=== PATIENT | female | born 1990 | race Caucasian/White ===

== ENCOUNTER → 2019-07-03 | Outpatient (CLI) | payer OTHER, SELFPAY ==
[2019-07-03 08:52] VITALS: BMI 36.6
[2019-07-03 10:40] LABS: Absolute Lymphocyte Count 2.15 X10^3/uL (0.83-4.51); Absolute Neutrophil Count 7.1 X10^3/uL (2.0-7.7); Basophil# 0.03 X10^3/uL; Basophil% 0.3 % (0-1); Eosinophil# 0.05 X10^3/uL; Eosinophils% 0.5 % (0-5); Hematocrit 41.6 % (37-47); Hemoglobin 14.5 g/dL (12.0-15.0); Lymphocyte # 2.15 X10^3/ul (4.0); Lymphocyte % 21.6 % (19-41); Mean Corp Hgb Conc 34.9 g/dL (32-36); Mean Corpuscular Hgb 28.8 pg (27.0-32.0); Mean Corpuscular Volume 82.5 fL (81-99); Mean Platelet Vol. 9.2 fl (6.2-12.0); Monocyte# 0.65 X10^3/uL; Monocyte% 6.5 % (0-10); NRBC Flagged by Analyzer 0 % (0-5); Neutrophil # 7.05 X10^3/uL (2.7-7.7); Neutrophil % 70.7 % (47-70); Platelet Count 259 K/mm3 (150-450); RBC Distribution Width CV 11.9 % (11.6-14.6); RBC Distribution Width SD 35.2 fl (35.1-43.9); Red Blood Count 5.04 M/mm3 (4.2-5.4)
[2019-07-03 10:52] LABS: Glucose Challenge Gest 1H 50g 132 mg/dL (70-140)
[2019-07-03 11:35] LABS: HIV - WCH Non-Reactive (Nonreactive); Hepatitis B Surface Antigen Non-Reactive (Nonreactive); Hepatitis C Antibody Non-Reactive (Nonreactive); Rubella IgG > 500.0 IU/mL
[2019-07-03 13:52] LABS: Amphetamine Urine VISTA NEGATIVE (<1000 ng/mL); Barbiturate Urine VISTA NEGATIVE (< 200 ng/mL); Benzodiazepine Urine VISTA NEGATIVE (< 200 ng/mL); Cocaine Urine VISTA NEGATIVE (< 300 ng/mL); Ecstacy Urine VISTA NEGATIVE (< 500 ng/mL); Methadone Urine VISTA NEGATIVE (< 300 ng/mL); PCP Urine VISTA NEGATIVE (< 25 ng/mL); THC Urine VISTA NEGATIVE (< 50 ng/mL); Vista UDS pH Range 6
[2019-07-03 15:05] LABS: Chlamydia Trachomatis by PCR Negative (Negative); Neisserai gonorrhoeae by PCR Negative (Negative); Probe Check PASS; Sample Adequacy Control PASS; Specimen Processing Control PASS
[2019-07-09 01:34] LABS: Rapid Plasmin Reagin (RPR) NONREACTIVE (NONREACTIVE)
== END | disposition home or self-care (01) ==
PROVIDERS: PCP Nurse Practitioner Primary Care; Referring Provider Obstetrics & Gynecology; Visit Provider Obstetrics & Gynecology
DX: Z34.90 Encounter for supervision of normal pregnancy, unspecified, unspecified trimester (principal)
CPT/HCPCS: 36415; 80307; 82950; 85025; 86592; 86703; 86762; 86803; 86850; 86900; 86901; 87086; 87088; 87340; 87491; 87591

== ENCOUNTER → 2019-10-12 | Outpatient (CLI) | payer OTHER, SELFPAY ==
[2019-10-12 10:12] VITALS: BMI 36.6
[2019-10-12 12:10] LABS: NATERA MAILED SPECIMEN
== END | disposition home or self-care (01) ==
LOC: PAVLAB 11:01
PROVIDERS: PCP Nurse Practitioner Primary Care; Referring Provider Obstetrics & Gynecology; Visit Provider Obstetrics & Gynecology
DX: O28.3 Abnormal ultrasonic finding on antenatal screening of mother (principal); Z3A.00 Weeks of gestation of pregnancy not specified
CPT/HCPCS: 36415

== ENCOUNTER → 2019-11-09 | Outpatient (CLI) | payer OTHER, SELFPAY ==
[2019-10-12 10:12] VITALS: BMI 36.6
[2019-11-09 15:17] LABS: Absolute Lymphocyte Count 1.69 X10^3/uL (0.83-4.51); Absolute Neutrophil Count 8.7 X10^3/uL (2.0-7.7); Basophil# 0.01 X10^3/uL; Basophil% 0.1 % (0-1); Eosinophil# 0.06 X10^3/uL; Eosinophils% 0.5 % (0-5); Hematocrit 36.9 % (37-47); Hemoglobin 12.8 g/dL (12.0-15.0); Lymphocyte # 1.69 X10^3/ul (4.0); Lymphocyte % 15.1 % (19-41); Mean Corp Hgb Conc 34.7 g/dL (32-36); Mean Corpuscular Volume 83.5 fL (81-99); Mean Platelet Vol. 10.3 fl (6.2-12.0); Monocyte# 0.61 X10^3/uL; Monocyte% 5.5 % (0-10); NRBC Flagged by Analyzer 0 % (0-5); Neutrophil # 8.74 X10^3/uL (2.7-7.7); Neutrophil % 78.2 % (47-70); Platelet Count 238 K/mm3 (150-450); RBC Distribution Width CV 12.6 % (11.6-14.6); RBC Distribution Width SD 37.9 fl (35.1-43.9); Red Blood Count 4.42 M/mm3 (4.2-5.4); White Blood Count 11.2 K/mm3 (4.4-11.0)
[2019-11-09 15:40] LABS: Glucose Challenge Gest 1H 50g 152 mg/dL (70-140)
== END | disposition home or self-care (01) ==
LOC: PAVLAB 14:38
PROVIDERS: PCP Nurse Practitioner Primary Care; Referring Provider Obstetrics & Gynecology; Visit Provider Obstetrics & Gynecology
DX: Z34.90 Encounter for supervision of normal pregnancy, unspecified, unspecified trimester (principal)
CPT/HCPCS: 36415; 82950; 85025

== ENCOUNTER → 2019-11-12 | Outpatient (CLI) | payer OTHER, SELFPAY ==
[2019-11-09 15:13] VITALS: BMI 39.1
[2019-11-12 07:58] LABS: Glucose GTT-Gestation. Fasting 84 mg/dL (<105)
[2019-11-12 09:22] LABS: Glucose GTT-Gestational 1 Hr 187 mg/dL (<190)
[2019-11-12 10:00] LABS: Glucose GTT-Gestational 2 Hr 162 mg/dL (<165)
[2019-11-12 11:11] LABS: Glucose GTT-Gestational 3 Hr 139 L (<145)
== END | disposition home or self-care (01) ==
LOC: LAB 07:01
PROVIDERS: PCP Nurse Practitioner Primary Care; Referring Provider Obstetrics & Gynecology; Visit Provider Obstetrics & Gynecology
DX: O99.810 Abnormal glucose complicating pregnancy (principal); Z3A.00 Weeks of gestation of pregnancy not specified
CPT/HCPCS: 36415; 82951; 82952

== ENCOUNTER 2019-12-08 15:30 | Outpatient (RCR) | payer OTHER, SELFPAY ==
[2019-11-13 08:46] VITALS: BMI 39.1
== END 2019-12-09 23:59 ==
LOC: NS 15:30
PROVIDERS: PCP Nurse Practitioner Primary Care; Visit Provider Nurse Practitioner Women's Health
DX: Z71.3 Dietary counseling and surveillance (principal); O24.419 Gestational diabetes mellitus in pregnancy, unspecified control; Z3A.00 Weeks of gestation of pregnancy not specified
CPT/HCPCS: 97802; G0108

== ENCOUNTER 2019-12-23 17:09 | Outpatient (RCR) | payer OTHER, SELFPAY ==
[2019-12-03 15:45] VITALS: BMI 38.6
[2019-12-14 15:21] VITALS: BMI 38.9
== END 2019-12-23 23:59 | disposition home or self-care (01) ==
LOC: DC 17:09
PROVIDERS: PCP Nurse Practitioner Primary Care; Visit Provider Nurse Practitioner Women's Health
DX: Z71.3 Dietary counseling and surveillance (principal); O24.419 Gestational diabetes mellitus in pregnancy, unspecified control; Z3A.00 Weeks of gestation of pregnancy not specified

== ENCOUNTER → 2020-03-02 | Outpatient (CLI) | payer OTHER, SELFPAY ==
[2020-03-02 09:24] VITALS: BMI 34.3
[2020-03-08 13:31] LABS: HPV Reflexed? NOT INDICATED
== END | disposition home or self-care (01) ==
LOC: LABSPEC 16:50
PROVIDERS: PCP Nurse Practitioner Primary Care; Referring Provider Obstetrics & Gynecology; Visit Provider Obstetrics & Gynecology
DX: Z12.4 Encounter for screening for malignant neoplasm of cervix (principal)
CPT/HCPCS: 88175; G0145

== ENCOUNTER → 2020-03-29 15:05 | Outpatient (CLI) | payer OTHER, SELFPAY ==
[2020-03-29 14:43] VITALS: BMI 36.2
[2020-03-29 16:51] LABS: AST(SGOT) 26 U/L (15-37); Alanine Aminotransfer ALT/SGPT 43 U/L (13-56); Albumin, Serum 3.7 g/dL (3.2-5.0); Alkaline Phosphatase 129 U/L (45-117); Anion Gap 5 (5-15); BUN 19 mg/dL (7-18); Calcium,Total 8.5 mg/dL (8.5-10.1); Chloride 109 mmol/L (98-107); Creatinine, Serum 0.79 mg/dL (0.55-1.02); EST Glomerular Filtration Rate 91 mL/min (>60); Est Glom Filt Rate - Afr Amer 111 mL/min (>60); Globulin 3.8 g/dL (2.2-4.2); Glucose 87 mg/dL (74-106); Potassium 3.9 mmol/L (3.5-5.1); Protein, Total 7.5 g/dL (6.4-8.2); Sodium Level 139 mmol/L (136-145)
[2020-03-29 16:58] LABS: Hemoglobin A1c 5.2 % (3.8-5.6)
== END ==
PROVIDERS: PCP Internal Medicine; Referring Provider Internal Medicine; Visit Provider Internal Medicine
DX: O24.419 Gestational diabetes mellitus in pregnancy, unspecified control (principal); O16.9 Unspecified maternal hypertension, unspecified trimester; O99.210 Obesity complicating pregnancy, unspecified trimester; E66.9 Obesity, unspecified; Z3A.00 Weeks of gestation of pregnancy not specified
CPT/HCPCS: 36415; 80053; 83036

== ENCOUNTER → 2020-04-01 07:05 | Outpatient (CLI) | payer OTHER, SELFPAY ==
[2020-03-02 09:24] VITALS: BMI 34.3
[2020-03-29 14:43] VITALS: BMI 36.2
[2020-04-01 11:06] LABS: Glucose 2 Hour Postprandial 80 mg/dL (<140)
== END ==
PROVIDERS: PCP Internal Medicine; Referring Provider Obstetrics & Gynecology; Visit Provider Obstetrics & Gynecology
DX: O24.419 Gestational diabetes mellitus in pregnancy, unspecified control (principal); Z3A.00 Weeks of gestation of pregnancy not specified
CPT/HCPCS: 36415; 82950

== ENCOUNTER → 2021-01-06 08:32 | Outpatient (CLI) | payer OTHER, SELFPAY ==
[2021-01-06 12:00] LABS: Absolute Lymphocyte Count 2.28 X10^3/uL (0.83-4.51); Absolute Neutrophil Count 4.7 X10^3/uL (2.0-7.7); Basophil# 0.02 X10^3/uL; Basophil% 0.3 % (0-1); Eosinophil# 0.11 X10^3/uL; Eosinophils% 1.4 % (0-5); Hematocrit 44.1 % (37-47); Hemoglobin 14.7 g/dL (12.0-15.0); Lymphocyte # 2.28 X10^3/ul (0.83-4.51); Lymphocyte % 29.5 % (19-41); Mean Corp Hgb Conc 33.3 g/dL (32-36); Mean Corpuscular Hgb 27.7 pg (27.0-32.0); Mean Corpuscular Volume 83.2 fL (81-99); Mean Platelet Vol. 10.2 fl (6.2-12.0); Monocyte# 0.59 X10^3/uL; Monocyte% 7.6 % (0-10); NRBC Flagged by Analyzer 0 % (0-5); Neutrophil # 4.72 X10^3/uL (2.7-7.7); Neutrophil % 60.9 % (47-70); Platelet Count 289 K/mm3 (150-450); RBC Distribution Width CV 12.5 % (11.6-14.6); RBC Distribution Width SD 37.7 fl (35.1-43.9); White Blood Count 7.7 K/mm3 (4.4-11.0)
[2021-01-06 12:16] LABS: ALB/GLOB Ratio 0.9 RATIO (0.9-2.4); AST(SGOT) 16 U/L (15-37); Alanine Aminotransfer ALT/SGPT 28 U/L (13-56); Albumin, Serum 3.7 g/dL (3.2-5.0); Alkaline Phosphatase 85 U/L (45-117); Anion Gap 11 (5-15); BUN 12 mg/dL (7-18); Calcium,Total 8.8 mg/dL (8.5-10.1); Chloride 106 mmol/L (98-107); Cholesterol 189 mg/dL (200); Creatinine, Serum 0.86 mg/dL (0.55-1.02); EST Glomerular Filtration Rate 83 mL/min (>60); Est Glom Filt Rate - Afr Amer 101 mL/min (>60); Globulin 4.2 g/dL (2.2-4.2); Glucose 93 mg/dL (74-106); High Density Lipoprotein 43 mg/dL; Potassium 3.9 mmol/L (3.5-5.1); Protein, Total 7.9 g/dL (6.4-8.2); Sodium Level 139 mmol/L (136-145); Triglycerides 169 mg/dL; Very Low Density Lipoprotein 34 mg/dL (5-40)
== END ==
PROVIDERS: PCP Internal Medicine; Referring Provider Internal Medicine; Visit Provider Internal Medicine
DX: I10 Essential (primary) hypertension (principal)
CPT/HCPCS: 36415; 80053; 80061; 85025

== ENCOUNTER → 2022-11-20 | Outpatient (CLI) | payer OTHER, SELFPAY ==
[2022-11-20 18:29] LABS: hCG Titer Quant., Serum 151 mIU/mL (1-3)
== END | disposition home or self-care (01) ==
LOC: LAB 16:38
PROVIDERS: PCP Internal Medicine; Referring Provider Registered Nurse; Visit Provider Registered Nurse
DX: O20.0 Threatened abortion (principal); Z3A.00 Weeks of gestation of pregnancy not specified
CPT/HCPCS: 36415; 84702

== ENCOUNTER → 2022-11-22 | Outpatient (CLI) | payer OTHER, SELFPAY ==
[2022-11-22 10:15] LABS: hCG Titer Quant., Serum 264 mIU/mL (1-3)
== END | disposition home or self-care (01) ==
PROVIDERS: PCP Internal Medicine; Referring Provider Registered Nurse; Visit Provider Registered Nurse
DX: O20.0 Threatened abortion (principal); Z3A.00 Weeks of gestation of pregnancy not specified
CPT/HCPCS: 36415; 84702

== ENCOUNTER → 2022-11-30 | Outpatient (CLI) | payer OTHER, SELFPAY ==
--- NOTE | 2022-11-30 15:57 | US_ITS ---
INDICATION: viability EXAMINATION: US OB Transvaginal TECHNIQUE: Transvaginal (for optimal evaluation of the adnexa) pelvic ultrasound was performed. Grayscale, spectral waveform, and color flow Doppler evaluation of the adnexa. COMPARISON: None. FINDINGS: Uterus measures 9.5 x 4.4 x 5 cm. scar along lower uterine segment. Small intrauterine gestational sac present but no pole or yolk sac detected at this time. Mean gestational sac diameter of 8 mm yields estimated gestational age of 5 weeks 4 days, AG[place] 07/29/2023. Clinical age of 7 weeks 2 days with LMP of 10/10/2022. Gestational sac shape subjectively within normal limits. Closed cervix. No adnexal mass or significant free pelvic fluid detected. Right ovary measures 3.7 x 3.4 x 3.6 cm and left ovary 2.3 x 1.6 x 1.9 cm. Adnexal color Doppler flow demonstrated but spectral waveform analysis of ovaries was not performed. US/Transvaginal w/Preg US IMPRESSION: Single early intrauterine with EGA of 5 weeks 4 days by ultrasound. pole not yet visualized. Classified as of uncertain viability. Recommend repeat ultrasound in 14 days to reassess. Electronically Signed: Andrey Jimenez MD at 3:22 EDT ,
== END | disposition home or self-care (01) ==
LOC: US 15:57
PROVIDERS: PCP Internal Medicine; Referring Provider Obstetrics & Gynecology; Visit Provider Obstetrics & Gynecology
DX: Z34.90 Encounter for supervision of normal pregnancy, unspecified, unspecified trimester (principal); Z3A.00 Weeks of gestation of pregnancy not specified
CPT/HCPCS: 76817

== ENCOUNTER → 2022-12-13 | Outpatient (CLI) | payer OTHER, SELFPAY | END | disposition home or self-care (01) | LOC: LABSPEC 14:22 | PROVIDERS: PCP Internal Medicine; Referring Provider Obstetrics & Gynecology; Visit Provider Obstetrics & Gynecology | DX: O09.91 Supervision of high risk pregnancy, unspecified, first trimester (principal); R35.0 Frequency of micturition; Z3A.00 Weeks of gestation of pregnancy not specified; O99.891 Other specified diseases and conditions complicating pregnancy | CPT/HCPCS: 87086 ==

== ENCOUNTER → 2022-12-13 | Outpatient (CLI) | payer OTHER, SELFPAY ==
--- NOTE | 2022-12-13 16:22 | US_ITS ---
STUDY: FIRST TRIMESTER OBSTETRICAL ULTRASOUND REASON FOR EXAM: Female, 32 years old Viability LMP: Unknown. TECHNIQUE: Transabdominal and Transvaginal TECHNICAL QUALITY: Adequate. PRIOR ULTRASOUND: November 30, 2022 FINDINGS: There is visualization of a single gestational sac in a normal intrauterine position. The mean sac diameter (MSD) measures 2.0 cm, indicating an estimated gestational age (EGA) of 6 weeks, 6 days. The gestational sac shape is within normal limits. There is a visualized yolk sac. The yolk sac measures 0.4 cm. The placenta is non-visualized. There is visualization of a live embryo. The crown-rump length (CRL) measures 1.0 cm, indicating an estimated gestational age (EGA) of 7 weeks, 1 days. There is demonstrated cardiac activity with a heart rate of 166 bpm. The estimated gestation age (EGA) by US is 7 weeks, 0 days. The estimated date of delivery ([facility]) by US is August 01, 2023. The uterus measures 10.1 x 6.1 x 5.1 cm. There is no demonstrated uterine fibroid. The cervix is closed. The right ovary measures 4.1 x 3.6 x 2.4 cm. There is 1.9 cm echogenic cyst. The left ovary measures 3.5 x 3.1 x 2.6 cm. There is no left ovarian cyst. There is no visualized left adnexal mass or complex lesion. There is no fluid in the cul de sac. US/Transvaginal w/Preg US IMPRESSION: Single intrauterine gestation 7 weeks 0 days with estimated due date August 01, 2023. Complex right adnexal cyst. Electronically Signed: Frankie Finley MD at 20:28 EDT ,
== END | disposition home or self-care (01) ==
LOC: US 16:21
PROVIDERS: PCP Internal Medicine; Referring Provider Obstetrics & Gynecology; Visit Provider Obstetrics & Gynecology
DX: Z34.90 Encounter for supervision of normal pregnancy, unspecified, unspecified trimester (principal); Z3A.00 Weeks of gestation of pregnancy not specified
CPT/HCPCS: 76817

== ENCOUNTER → 2022-12-14 | Outpatient (CLI) | payer OTHER, SELFPAY ==
[2022-12-18 03:07] LABS: Chlamydia By Nucleic Acid AMP Negative (Negative); Gonococcus By Nucleic Acid AMP Negative (Negative)
== END | disposition home or self-care (01) ==
LOC: LABSPEC 16:51
PROVIDERS: Referring Provider Registered Nurse; Visit Provider Registered Nurse
DX: Z34.90 Encounter for supervision of normal pregnancy, unspecified, unspecified trimester (principal); Z3A.00 Weeks of gestation of pregnancy not specified
CPT/HCPCS: 87086; 87491; 87591

== ENCOUNTER 2023-01-11 14:52 | Outpatient (CLI) | payer OTHER, SELFPAY ==
[2023-01-11 15:40] LABS: Absolute Lymphocyte Count 2.14 X10^3/uL (0.83-4.51); Absolute Neutrophil Count 7.9 X10^3/uL (2.0-7.7); Basophil# 0.02 X10^3/uL; Basophil% 0.2 % (0-1); Eosinophil# 0.05 X10^3/uL; Eosinophils% 0.5 % (0-5); Hematocrit 40.4 % (37-47); Hemoglobin 13.7 g/dL (12.0-15.0); Lymphocyte # 2.14 X10^3/ul (0.83-4.51); Lymphocyte % 19.8 % (19-41); Mean Corp Hgb Conc 33.9 g/dL (32-36); Mean Corpuscular Volume 82.6 fL (81-99); Mean Platelet Vol. 9.6 fl (6.2-12.0); Monocyte# 0.64 X10^3/uL; Monocyte% 5.9 % (0-10); NRBC Flagged by Analyzer 0 % (0-5); Neutrophil # 7.93 X10^3/uL (2.7-7.7); Neutrophil % 73.2 % (47-70); Platelet Count 235 K/mm3 (150-450); RBC Distribution Width CV 12.5 % (11.6-14.6); RBC Distribution Width SD 37.6 fl (35.1-43.9); Red Blood Count 4.89 M/mm3 (4.2-5.4); White Blood Count 10.8 K/mm3 (4.4-11.0)
[2023-01-11 15:59] LABS: NATERA MAILED SPECIMEN
[2023-01-11 16:03] LABS: Hemoglobin A1c 4.9 % (3.8-5.6)
[2023-01-11 16:11] LABS: ALB/GLOB Ratio 0.8 RATIO (0.9-2.4); AST(SGOT) 13 U/L (15-37); Alanine Aminotransfer ALT/SGPT 18 U/L (13-56); Albumin, Serum 3.3 g/dL (3.2-5.0); Alkaline Phosphatase 83 U/L (45-117); Anion Gap 8 (5-15); BUN 9 mg/dL (7-18); BUN/Creat Ratio 13.6 RATIO (10-20); Calcium,Total 8.7 mg/dL (8.5-10.1); Chloride 108 mmol/L (98-107); Creatinine, Serum 0.66 mg/dL (0.55-1.02); EST Glomerular Filtration Rate 110 mL/min (>60); Est Glom Filt Rate - Afr Amer 134 mL/min (>60); Glucose 120 mg/dL (74-106); Potassium 3.4 mmol/L (3.5-5.1); Protein, Total 7.3 g/dL (6.4-8.2); Sodium Level 138 mmol/L (136-145)
[2023-01-11 17:25] LABS: HIV - WCH Non-Reactive (Nonreactive); Hepatitis B Surface Antigen Non-Reactive (Nonreactive); Hepatitis C Antibody Non-Reactive (Nonreactive); Rubella IgG Reactive (Nonreactive); Syphilis Antibodies Non-reactive
== END 2023-01-11 23:59 | disposition home or self-care (01) ==
LOC: LAB 14:54
PROVIDERS: Visit Provider Registered Nurse
DX: O99.210 Obesity complicating pregnancy, unspecified trimester (principal); Z86.32 Personal history of gestational diabetes; O09.299 Supervision of pregnancy with other poor reproductive or obstetric history, unspecified trimester; I10 Essential (primary) hypertension
CPT/HCPCS: 36415; 80053; 83036; 85025; 86703; 86762; 86780; 86803; 86850; 86900; 86901; 87340

== ENCOUNTER → 2023-05-03 | Outpatient (CLI) | payer OTHER, SELFPAY ==
[2023-05-03 14:45] LABS: Absolute Neutrophil Count 7.4 X10^3/uL (2.0-7.7); Basophil# 0.02 X10^3/uL; Basophil% 0.2 % (0-1); Eosinophil# 0.15 X10^3/uL; Eosinophils% 1.5 % (0-5); Hematocrit 36.6 % (37-47); Hemoglobin 12.2 g/dL (12.0-15.0); Lymphocyte % 16.2 % (19-41); Mean Corp Hgb Conc 33.3 g/dL (32-36); Mean Platelet Vol. 9.9 fl (6.2-12.0); Monocyte# 0.65 X10^3/uL; Monocyte% 6.6 % (0-10); NRBC Flagged by Analyzer 0 % (0-5); Neutrophil # 7.41 X10^3/uL (2.7-7.7); Neutrophil % 75.2 % (47-70); Platelet Count 247 K/mm3 (150-450); RBC Distribution Width SD 37.5 fl (35.1-43.9); Red Blood Count 4.52 M/mm3 (4.2-5.4); White Blood Count 9.9 K/mm3 (4.4-11.0)
[2023-05-03 14:51] LABS: Protein:Creat Ratio 211 mg/g CRE (0-200)
[2023-05-03 15:12] LABS: ALB/GLOB Ratio 0.7 RATIO (0.9-2.4); AST(SGOT) 13 U/L (15-37); Alanine Aminotransfer ALT/SGPT 14 U/L (13-56); Albumin, Serum 2.9 g/dL (3.2-5.0); Alkaline Phosphatase 101 U/L (45-117); Anion Gap 10 (5-15); BUN 8 mg/dL (7-18); BUN/Creat Ratio 11.2 RATIO (10-20); Calcium,Total 9.4 mg/dL (8.5-10.1); Chloride 107 mmol/L (98-107); Creatinine, Serum 0.71 mg/dL (0.55-1.02); EST Glomerular Filtration Rate 101 mL/min (>60); Est Glom Filt Rate - Afr Amer 123 mL/min (>60); Globulin 4.4 g/dL (2.2-4.2); Glucose 128 mg/dL (74-106); Potassium 3.7 mmol/L (3.5-5.1); Protein, Total 7.3 g/dL (6.4-8.2); Sodium Level 138 mmol/L (136-145)
[2023-05-03 16:06] LABS: HIV - WCH Non-Reactive (Nonreactive); Syphilis Antibodies Non-reactive
--- OUTSIDE RECORDS SUMMARY | 2023-05-03 16:47 | XMS RPT_ITS | CCD ---
Author Name Unknown Address [id number] [place] [address] Organization [facility] Care Team Providers Care Brake Repair Supervisor Name Role Phone Lisha Hilaria Kennedy Unavailable Amador Addison Attending Unavailable LishaHilaria Primary Care Provider Unavailable Primary Care Provider Unavailabl e Lisha COMMISSIONER OF CONCILIATIONHilaria Primary Care Provid er Lisha [employer] CON[employer]IATION, Hilaria Kennedy Primary Care Provid er LISHA, HILARIA KENNEDY Primary Care Unavail able HENRRY BARAHONA Attending Unavailable Lisha COMM[employer] CON[employer]IATION, Hilaria Kennedy Primary Care Provid er Lisha Hilaria CORNELL Unavailable LISHA, HILARIA KENNEDY Admitting Unavail able LISHA, HILARIA KENNEDY Primary Care Unavail able LISHA, HILARIA KENNEDY Primary Care Unavail able LISHA, HILARIA KENNEDY Admitting Unavail able LISHA, HILARIA KENNEDY Primary Care Unavail able ELEUTERIO CASTANO Admitting Unavailable LISHA, HILARIA KENNEDY Primary Care Unavail able Lisha [employer], Hilaria Kennedy Primary Care Provid er Lisha Hilaria CORNELL Unavailable LISHA, HILARIA KENNEDY Attending Unavail able LISHA, HILARIA KENNEDY Primary Care Unavail able LISHA, HILARIA KENNEDY Attending Unavail able LISHA, HILARIA KENNEDY Primary Care Unavail able LISHA, HILARIA KENNEDY Primary Care Unavail able ALEIDA ACEVES Attending Unavailable LISHA, HILARIA KENNEDY Primary Care Unavail able MOROCCO JR., TIN Attending Unavailable LISHA, HILARIA KENNEDY Referring Unavail able LISHA, HILARIA KENNEDY Admitting Unavail able LISHA, HILARIA KENNEDY Primary Care Unavail able MOROCCO JR., TIN Attending Unavailable LISHA, HILARIA KENNEDY Attending Unavail able LISHA, HILARIA KENNEYD Primary Care Unavail able DOC, [facility] Primary Care Unavailable VANDEVJOEY MAHAJAN Referring Unavailab le CERDAYUDITH REESE Attending Unavailable DOC, [facility] Unavailable VANDEVJOEY MAHAJAN Referring Unavailab le SEVEN RODAS Attending Unavailable VANDEVELDE, JOEY Valentine Attending Unavailab le VANDEVELDEJOEY Referring Unavailab le DOC, [facility] Primary [facility] Unavailable MOTTERFREDERICK Attending Unavailable Allergies Allergy Classification Reported Allergen(s) Allergy Type Date of Onset Reaction(s) Facility (20 sources) acetaminophen / HYDROcodone; Translations: [HYDROCODONE-ACET AMINOPHEN] Propensity to adverse reactions to drug 6 Other (See Comments) [facility] (20 sources) diazePAM; Translations: [DIAZEPAM] Propensity to adverse reactions to drug 7 Anxiety [facility] (20 sources) erythromycin; Translations: [ERYTHROMYCIN BASE] Propensity to adverse reactions to drug 5 Other (See Comments), Nausea And Vomiting [facility] (19 sources) penicillin; Translations: [PENICILLIN] Propensity to adverse reactions to drug 5 Rash [facility] (1 source) Acetaminophen Drug Allergy [facility] (1 source) diazePAM Drug Allergy [facility] (1 source) Erythromycin Drug Allergy [facility] (2 sources) HYDROcodone; Translations: [HYDROCODONE] Drug Allergy 0 [facility] (2 sources) Penicillins; Translations: [PENICILLINS] Drug allergy (disorder) 5 [facility] (19 sources) cefdinir; Translations: [CEFDINIR] Drug Allergy 9 Anaphylaxis [facility] (1 source) HYDROcodone Drug Allergy 0 [place], [place] (1 source) Penicillins Propensity to adverse reactions to drug 0 Rash [place], [place] (1 source) Erythromycin; Translations: [ERYTHROMYCIN] Drug Allergy 5 [facility] Rep[facility] Medications Current Medications Medication Drug Class(es) Dates Sig (Normalized) Sig (Original) azithromycin 250 mg oral tablet (1 source) Macrolide Antimicrobial Start: 01-13-2019 End: 01-18-2019 azithromycin (Zithromax) 250 MG tablet Indications: Sinusitis, unspecified chronicity, unspecified location Take 2 tablets (500 mg) on Day 1, followed by 1 tablet (250 mg) once daily on Days 2 through 5. . 6 tablet 0 01/13/2019 01/18/2019 Active cetirizine hydrochloride 10 mg oral tablet (19 sources) Histamine-1 Receptor Antagonist Start: 01-19-2020 cetirizine (ZYRTEC) tablet 10 mg Completed/Discontinued Medications Medication Drug Class(es) Dates Sig (Normalized) Sig (Original) acetaminophen 500 mg oral tablet (1 source) Start: 01-14-2020 End: 01-14-2020 take 1000 mg by mouth once, then take 4000 mg by mouth every twenty-four hours 1,000 mg, Oral, ONCE, [facility] 01/14/20 at 1815, For 1 dose Maximum dose of acetaminophen is 4000 mg from all sources in 24 hours. Problems Active Problems Problem Classification Problem Date Documented Da te Episodic/Chronic Essential hypertension (20 sources) Hypertensive disorder; Translations: [Essential (primary) hypertension] Onset: 06-27-2021 Chronic Inflammatory diseases of female pelvic organs (1 source) Acute vaginitis Episodic Menstrual disorders (3 sources) Amenorrhea; Translations: [Amenorrhea, unspecified] Onset: 06-28-2021 Chronic Other nervous system disorders (1 source) Skin tenderness; Translations: [Other disturbances of skin sensation] 07-11-2022 Episodic Other nervous system disorders (2 sources) Other disturbances of skin sensation; Translations: [Other disturbances of skin sensation] Onset: 07-11-2022 Episodic Other nutritional; endocrine; and metabolic disorders (13 sources) Insulin resistance; Translations: [Metabolic syndrome] Onset: 06-27-2021 06-27-2021 Chronic Other skin disorders (1 source) Cyst of scalp; Translations: [Follicular cyst of the skin and subcutaneous tissue, unspecified] Episodic Other skin disorders (2 sources) Pilar cyst of scalp; Translations: [Pilar cyst] Episodic Other skin disorders (1 source) Epidermoid cyst; Translations: [Epidermal cyst] Episodic Other skin disorders (1 source) Scar; Translations: [Scar conditions and fibrosis of skin] 07-24-2022 Episodic Other skin disorders (2 sources) Scar conditions and fibrosis of skin; Translations: [Scar conditions and fibrosis of skin] Onset: 07-24-2022 Episodic Other skin disorders (2 sources) Pilar cyst; Translations: [Pilar cyst] Onset: 07-11-2022 Episodic Other skin disorders (2 sources) Epidermal cyst; Translations: [Epidermal cyst] Onset: 05-28-2022 Episodic Other upper respiratory infections (1 source) Sinusitis; Translations: [Sinusitis, unspecified chronicity, unspecified location] Episodic Residual codes; unclassified (2 sources) H/O: section; Translations: [S/P primary low transverse ] Onset: 01-17-2020 01-17-2020 Episodic Superficial injury; contusion (2 sources) Abrasion of left cornea; Translations: [Injury of conjunctiva and corneal abrasion without foreign body, left eye, initial encounter] Episodic Past or Other Problems Problem Classification Problem Date Documented Da te Episodic/Chronic Contraceptive and procreative management (16 sources) Oral contraception; Translations: [Encounter for surveillance of contraceptive pills] Onset: 02-24-2018 06-27-2021 Episodic Diabetes or abnormal glucose tolerance complicating ; childbirth; or the puerperium (13 sources) Gestational diabetes mellitus complicating ; Translations: [Gestational diabetes mellitus in , unspecified control] Onset: 01-14-2020 Resolved: 08-25-2021 06-27-2021 Episodic Genitourinary symptoms and ill-defined conditions (9 sources) Increased frequency of urination; Translations: [Frequency of micturition] Onset: 11-16-2021 Episodic Hypertension complicating ; childbirth and the puerperium (15 sources) Pre-eclampsia; Translations: [Severe pre-eclampsia] Onset: 01-14-2020 Resolved: 08-25-2021 01-14-2020 Episodic Malposition; malpresentation (13 sources) Breech presentation with problem; Translations: [Maternal care for breech presentation, not applicable or unspecified] Onset: 01-14-2020 Resolved: 08-25-2021 06-27-2021 Episodic Other complications of (13 sources) ultrasound scan abnormal; Translations: [Abnormal ultrasonic finding on screening of mother] Onset: 06-27-2021 06-27-2021 Episodic Other complications of (13 sources) High risk ; Translations: [Supervision of high risk , unspecified, unspecified trimester] Onset: 06-27-2021 Resolved: 08-25-2021 06-27-2021 Episodic Other female genital disorders (14 sources) H/O gynecological disorder; Translations: [Personal history of other diseases of the female genital tract] Onset: 02-24-2018 01-20-2020 Episodic Other skin disorders (2 sources) Follicular cyst of the skin and subcutaneous tissue, unspecified; Translations: [Follicular cyst of the skin and subcutaneous tissue, unspecified] Onset: 04-16-2022 Episodic Results Test Name Value Interpretation Reference Range Facil ity Vital Signs Date Time Vital Sign Value Performing Clinician Facility 04-16-2022 10:04-0500 Body height 161.3 cm Hilaria Husain [employer] Work Phone: [facility] 04-16-2022 10:04-0500 Body mass index (BMI) [Ratio] 40.8 kg/m2 Hilaria Lisha [employer] Work Phone: [facility] 04-16-2022 10:04-0500 Body weight 106.14 kg Hilaria Lisha [employer] Work Phone: [facility] 04-16-2022 10:04-0500 Diastolic blood pressure 76 mm[Hg] Hilaria Lisha [employer] Work Phone: [facility] 04-16-2022 10:04-0500 Heart rate 83 /min Hilaria Lisha [employer] Work Phone: [facility] 04-16-2022 10:04-0500 SaO2% (BldA) [Mass fraction] 97 % Hilaria Lisha [employer] Work Phone: [facility] 04-16-2022 10:04-0500 Systolic blood pressure 117 mm[Hg] Hilaria Lisha [employer] Work Phone: [facility] 11-16-2021 09:14-0400 Body height 161.3 cm Hilaria Lisha [employer] Work Phone: [facility] 11-16-2021 09:14-0400 Body mass index (BMI) [Ratio] 41.85 kg/m2 Hilaria Lisha [employer] Work Phone: [facility] 11-16-2021 09:14-0400 Body weight 108.86 kg Hilaria Lisha [employer] Work Phone: [facility] 11-16-2021 09:14-0400 Diastolic blood pressure 84 mm[Hg] Hilaria Lisha [employer] Work Phone: [facility] 11-16-2021 09:14-0400 Heart rate 88 /min Hilaria Lisha [employer] Work Phone: [facility] 11-16-2021 09:14-0400 SaO2% (BldA) [Mass fraction] 98 % Hilaria Lisha [employer] Work Phone: [facility] 11-16-2021 09:14-0400 Systolic blood pressure 127 mm[Hg] Hilaria Lisha [employer] Work Phone: [facility] 09-10-2021 13:27-0400 Body mass index (BMI) [Ratio] 43.07 kg/m2 Paridhi Ja [employer] Work Phone: [facility] 09-10-2021 13:27-0400 Body temperature 98.49 [degF] Paridhi Ja [employer] Work Phone: [facility] 09-10-2021 13:27-0400 Body weight 112.04 kg Paridhi Ja [employer] Work Phone: [facility] 09-10-2021 13:27-0400 Diastolic blood pressure 83 mm[Hg] Paridhi Ja [employer] Work Phone: [facility] 09-10-2021 13:27-0400 Heart rate 94 /min Paridhi Ja [employer] Work Phone: [facility] 09-10-2021 13:27-0400 Respiratory rate 16 /min Paridhi Ja [employer] Work Phone: [facility] 09-10-2021 13:27-0400 SaO2% (BldA) [Mass fraction] 97 % Paridhi Ja [employer] Work Phone: [facility] 09-10-2021 13:27-0400 Systolic blood pressure 132 mm[Hg] Paridhi Ja [employer] Work Phone: [facility] 08-25-2021 09:30-0400 Body height 161.3 cm Hilaria Lisha [employer]IATION Work Phone: [facility] 08-25-2021 09:30-0400 Body mass index (BMI) [Ratio] 41.67 kg/m2 Hilaria Lisha [employer] Work Phone: [facility] 08-25-2021 09:30-0400 Body weight 108.41 kg Hilaria Lisha [employer] Work Phone: [facility] 08-25-2021 09:30-0400 Diastolic blood pressure 72 mm[Hg] Hilaria Lisha [employer] Work Phone: [facility] 08-25-2021 09:30-0400 Heart rate 85 /min Hilaria Lisha [employer] Work Phone: [facility] 08-25-2021 09:30-0400 SaO2% (BldA) [Mass fraction] 97 % Hilaria Lisha [employer] Work Phone: [facility] 08-25-2021 09:30-0400 Systolic blood pressure 106 mm[Hg] Hilaria Lisha [employer]IATION Work Phone: [facility] 06-27-2021 15:36-0400 Body height 161.3 cm Hilaria Lisha [employer] Work Phone: [facility] 06-27-2021 15:36-0400 Body mass index (BMI) [Ratio] 42.2 kg/m2 Hilaria Lisha [employer] Work Phone: [facility] 06-27-2021 15:36-0400 Body weight 109.77 kg Hilaria Lisha [employer] Work Phone: [facility] 06-27-2021 15:36-0400 Diastolic blood pressure 88 mm[Hg] Hilaria Lisha [employer] Work Phone: [facility] 06-27-2021 15:36-0400 Heart rate 88 /min Hilaria Lisha [employer] Work Phone: [facility] 06-27-2021 15:36-0400 SaO2% (BldA) [Mass fraction] 96 % Hilaria Lisha [employer]IATION Work Phone: [facility] 06-27-2021 15:36-0400 Systolic blood pressure 134 mm[Hg] Hilaria Lisha [employer] Work Phone: [facility] 01-20-2020 11:39-0500 BP Diastolic 99 mm[Hg] [facility] [place] 01-20-2020 11:39-0500 BP Systolic 146 mm[Hg] [facility] [place] 01-20-2020 11:39-0500 Pulse (Heart Rate) 89 /min [facility] 01-20-2020 08:32-0500 Body Temperature 97 [degF] [facility] 01-20-2020 08:32-0500 Pulse Oximetry 100 % [facility] [place] 01-20-2020 08:32-0500 Respiratory Rate 18 /min [facility] 01-17-2020 03:20-0500 BMI (Body Mass Index) 40.92 kg/m2 [facility] 01-17-2020 03:20-0500 Body weight 108.14 kg [facility] [place] 01-14-2020 18:58-0500 Height 162.6 cm [place], [place] 01-13-2019 09:16-0500 BMI (Body Mass Index) 38.19 kg/m2 Sabino Gallardo [facility] 01-13-2019 09:16-0500 Body Temperature 98.4 [degF] Sabino Gallardo [facility] 01-13-2019 09:16-0500 [facility] 99[facility]34 [facility] 09:16-0500 BP Diastolic 88 mm[Hg] [facility]-13[facility]2019 09:16-0500 BP Systolic 127 mm[Hg] [facility] 01-13-2019 09:16-0500 Height 161.3 cm Sabino [facility] 01-13-2019 09:16-0500 Pulse (Heart Rate) 88 /min [facility]-13-2019 09:16-0500 Pulse Oximetry 98 % [facility] 01-13-2019 09:16-0500 Respiratory Rate 18 /min Sabino [facility] 09-17-2017 18:28-0400 BMI (Body Mass Index) 36.25 kg/m2 [facility] system 09-17-2017 18:28-0400 Body Temperature 98.2 [degF] [facility] system 09-17-2017 18:28-0400 BP Diastolic 85 mm[Hg] [facility] system 09-17-2017 18:28-0400 BP Systolic 128 mm[Hg] [facility] system 09-17-2017 18:28-0400 Height 162.6 cm [facility] system 09-17-2017 18:28-0400 Pulse (Heart Rate) 69 /min [facility] system 09-17-2017 18:28-0400 Pulse Oximetry 97 % [facility] system 09-17-2017 18:28-0400 Respiratory Rate 16 /min [facility] system 09-17-2017 18:28-0400 Weight 95.8 kg Health system 05-17-2017 10:05-0500 BMI (Body Mass Index) 38.62 kg/m2 Hilaria Lisha [facility] 05-17-2017 10:05-0500 Body Temperature 98.1 [degF] Hilaria Lisha [facility] 05-17-2017 10:05-0500 BP Diastolic 80 mm[Hg] [facility] 05-17-2017 10:05-0500 BP Systolic 131 mm[Hg] [facility] 05-17-2017 10:05-0500 Height 162.6 cm [facility] 05-17-2017 10:05-0500 Pulse (Heart Rate) 98 /min [facility] 05-17-2017 10:05-0500 Pulse Oximetry 98 % [facility] 05-17-2017 10:05-0500 Respiratory Rate 16 /min [facility] 05-17-2017 10:05-0500 Weight 102.06 kg [facility] Encounters Encounter Date Encounter Type Care Provider Facility Start: 04-03-2023 End: 04-03-2023 ambulatory JOEY GEE [facility] Start: 03-07-2023 End: 03-07-2023 ambulatory MISC DOC [facility] Start: 07-24-2022 End: 07-24-2022 ambulatory HILARIA MARCIA [facility] Start: 07-24-2022 End: 07-24-2022 Clinical Support Aleida Aceves [facility] Procedures Date Procedure Procedure Detail Performing Clinician Start: 03-19-2022 Microscopic observat ion [Identifier] in Cervix by Cyto stain Hilaria Husain [facility] Work Phone: Start: 08-25-2021 Adult depression scr eening assessment Hilaria Husain [employer] Work Phone: Start: 03-02-2020 Microscopic observat ion [Identifier] in Cervix by Cyto stain Hilaria Husain [employer] Work Phone: Start: 01-19-2020 Gluc bld gluc mntr d ev cleared fda spec home use Seven Rodas Work Phone: Start: 01-19-2020 Gluc bld gluc mntr d ev cleared fda spec home use Seven Rodas Work Phone: Start: 01-18-2020 Gluc bld gluc mntr d ev cleared fda spec home use Seven A Rodas Work Phone: Start: 01-18-2020 Gluc bld gluc mntr d ev cleared fda spec home use Seven A Rodas Work Phone: Start: 01-18-2020 Gluc bld gluc mntr d ev cleared fda spec home use Seven A Rodas Work Phone: Start: 01-18-2020 Blood count hemoglobin Joce Adler Work Phone: Start: 01-17-2020 Blood count complete automated Joce Valentine [employer] Work Phone: Start: 01-17-2020 Comprehensive metabo lic panel Joce Valentine [employer] Work Phone: Start: 01-17-2020 Blood typing serologic abo Seven Kirkpatrick [employer] Work Phone: Start: 01-16-2020 Gluc bld gluc mntr d ev cleared fda spec home use Seven A Rodas Work Phone: Start: 01-16-2020 Gluc bld gluc mntr d ev cleared fda spec home use Seven A [employer] Work Phone: Start: 01-16-2020 Gluc bld gluc mntr d ev cleared fda spec home use Seven Kirkpatrick [employer] Work Phone: Start: 01-16-2020 Gluc bld gluc mntr d ev cleared fda spec home use Seven A Rodas Work Phone: Start: 01-15-2020 Gluc bld gluc mntr d ev cleared fda spec home use Seven A [employer] Work Phone: Start: 01-15-2020 Gluc bld gluc mntr d ev cleared fda spec home use Seven A Rodas Work Phone: Start: 01-15-2020 US LIMITED Al mylene Palmer Work Phone: Start: 01-15-2020 Gluc bld gluc mntr d ev cleared fda spec home use Seven A [employer] Work Phone: Start: 01-15-2020 Blood count complete auto&auto difrntl wbc Karlos Varela Work Phone: Start: 01-15-2020 Comprehensive metabo lic panel Karlos Varela Work Phone: Start: 01-14-2020 Gluc bld gluc mntr d ev cleared fda spec home use Seven Rodas Work Phone: Start: 01-14-2020 Culture bacterial quanttative colony count urine Jayda Amezcua Work Phone: Start: 01-14-2020 Susceptiblty stdy antimicrbial micro/agar dilutj Jayda Amezcua Work Phone: Start: 01-14-2020 Blood typing serologic abo Karlos Varela Work Phone: Start: 01-14-2020 Blood count complete automated Ally C Ptasinski Work Phone: Start: 01-14-2020 Comprehensive metabo lic panel Ally C Ptasinski Work Phone: Start: 01-14-2020 Creatinine other source Ally C Ptasinski Work Phone: Start: 01-14-2020 PROTEIN, URINE Ally C Ptasinski Work Phone: Start: 02-21-2016 Microscopic observat ion [Identifier] in Cervix by Cyto stain Sabino Gallardo Plan of Treatment Date Care Activity Detail Author Start: 11-08-2029 Tetanus vaccination Tetanus: Every 1 0yrs [facility] Start: 05-16-2026 Tetanus vaccination TETANUS EVERY 10 YR [facility] Start: 03-19-2025 Screening for malign ant neoplasm of cervix Pap Smear [facility] Start: 04-16-2023 History and physical examination, annual for health maintenance Wellness Visit [facility] Start: 03-02-2023 Screening for malign ant neoplasm of cervix Pap Smear [facility] Start: 08-25-2022 COVID-19 Vaccine (3 - Booster for Pfizer series) COVID-19 Vaccine (3 - Booster for Pfizer series) [facility] Immunizations Immunization Date Immunization Notes Care Provider Veena ellison 04-16-2022 Seasonal, quadrivale nt, recombinant, injectable influenza vaccine, preservative free Hilaria Lisha [employer] Work Phone: [facility] 04-16-2022 flu vac qv 2021,19yr up,rcm-PF (FLUBLOK QUAD) syringe Hilaria Lisha [employer] Work Phone: [facility] 01-06-2021 Influenza, injectabl e, Madin Casey Canine Kidney, preservative free, quadrivalent Hilaria Lisha [employer] Work Phone: [facility] 01-17-2020 diphtheria, tetanus toxoids and acellular pertussis vaccine, unspecified formulation [facility] [place] 01-17-2020 measles, mumps and rubella virus vaccine [facility] 12-03-2019 Influenza, injectabl e, Madin Nicole Canine Kidney, quadrivalent with preservative Hilaria Lisha [employer] Work Phone: [facility] 12-03-2019 influenza, seasonal, injectable, preservative free Hilaria Lisha [employer] Work Phone: [facility] 11-09-2019 diphtheria, tetanus toxoids and acellular pertussis vaccine Hilaria Lisha [employer] Work Phone: [facility] 11-09-2019 diphtheria, tetanus toxoids and acellular pertussis vaccine, unspecified formulation Hilaria Lisha [employer] Work Phone: [facility] 11-09-2019 tetanus toxoid, redu lydia diphtheria toxoid, and acellular pertussis vaccine, adsorbed Hilaria Lisha [employer] Work Phone: [facility] 03-18-2019 Influenza, injectabl e, Madin Casey Canine Kidney, quadrivalent with preservative Hilaria Lisha [employer] Work Phone: [facility] 05-16-2016 tetanus toxoid, redu lydia diphtheria toxoid, and acellular pertussis vaccine, adsorbed; Translations: [TDAP] Hilaria Lisha [facility] 03-16-2012 influenza, seasonal, injectable Hilaria Lisha [employer] Work Phone: [facility] 12-04-2008 influenza, seasonal, injectable Hilaria Lisha [employer] Work Phone: [facility] 12-04-2008 influenza, seasonal, intradermal, preservative free Hilaria Lisha [facility] 10-18-2008 hepatitis A vaccine, pediatric/adolescent dosage, 2 dose schedule Hilaria Lisha [facility] 10-18-2008 hepatitis A vaccine, unspecified formulation Hilaria Lisha [employer] Work Phone: [facility] 10-18-2008 tetanus toxoid, redu lydia diphtheria toxoid, and acellular pertussis vaccine, adsorbed Hilaria Lisha [facility] 12-30-2007 influenza, seasonal, injectable Hilaria Lisha [employer] Work Phone: [facility] 01-11-2007 influenza, seasonal, injectable Hilaria Lisha [employer] Work Phone: [facility] 10-07-2006 meningococcal polysaccharide (groups A, C, Y and W-135) diphtheria toxoid conjugate vaccine (MCV4P) Hilaria Lisha [facility] 10-07-2006 meningococcal polysaccharide vaccine (MPSV4) Hilaria Lisha [facility] Work Phone: [facility] 10-07-2006 Meningococcal, MCV4, unspecified conjugate formulation(groups A, C, Y and W-135) Hilaria Lisha [employer] Work Phone: [facility] 01-21-2006 influenza, seasonal, injectable Hilaria Lisha [employer] Work Phone: [facility] 11-06-2003 measles, mumps and rubella virus vaccine Hilaria Lisha [employer] Work Phone: [facility] 10-12-2003 measles, mumps and rubella virus vaccine Hilaria Lisha [facility] 10-12-2003 tetanus and diphther ia toxoids, adsorbed, for adult use Hilaria Lisha [facility] 10-12-2003 tetanus toxoid, adsorbed Hilaria Lisha [facility] CONCILIATION Work Phone: [facility] 10-12-2003 tetanus toxoid, redu lydia diphtheria toxoid, and acellular pertussis vaccine, adsorbed Hilaria Lisha COMMISSIONER OF CONCILIATION Work Phone: [facility] 10-19-1996 diphtheria, tetanus toxoids and acellular pertussis vaccine, unspecified formulation Hilaria Lisha COMMISSIONER OF CONCILIATION Work Phone: [facility] 10-19-1996 DTaP Hilaria Lisha [facility] 10-19-1996 poliovirus vaccine, inactivated Hilaria Lisha [facility] 09-18-1996 diphtheria, tetanus toxoids and acellular pertussis vaccine, unspecified formulation Hilaria Lisha COMMISSIONER OF CONCILIATION Work Phone: [facility] 09-18-1996 poliovirus vaccine, unspecified formulation Hilaria Lisha COMMISSIONER OF CONCILIATION Work Phone: [facility] 05-01-1994 hepatitis B vaccine, pediatric or pediatric/adolescent dosage Hilaria Lisha [facility] 11-24-1993 hepatitis B vaccine, pediatric or pediatric/adolescent dosage Hilaria Lisha [facility] 10-20-1993 hepatitis B vaccine, pediatric or pediatric/adolescent dosage Hilaria Lisha [facility] 04-03-1993 diphtheria, tetanus toxoids and acellular pertussis vaccine, unspecified formulation Hilaria Lisha COMMISSIONER OF CONCILIATION Work Phone: [facility] 04-03-1993 haemophilus influenz ae type b vaccine, conjugate unspecified formulation Hilaria Lisha [facility] 04-03-1993 measles, mumps and rubella virus vaccine Hilaria Lisha COMMISSIONER OF CONCILIATION Work Phone: [facility] 04-03-1993 poliovirus vaccine, unspecified formulation Hilaria Lisha COMMISSIONER OF CONCILIATION Work Phone: [facility] 03-23-1992 diphtheria, tetanus toxoids and acellular pertussis vaccine, unspecified formulation Hilaria Lisha COMMISSIONER OF CONCILIATION Work Phone: [facility] 03-23-1992 haemophilus influenz ae type b vaccine, conjugate unspecified formulation Hilaria Lisha COMMISSIONER OF CONCILIATION Work Phone: [facility] 01-20-1992 diphtheria, tetanus toxoids and acellular pertussis vaccine, unspecified formulation Hilaria Lisha COMMISSIONER OF CONCILIATION Work Phone: [facility] 01-20-1992 haemophilus influenz ae type b vaccine, conjugate unspecified formulation Hilaria Lisha COMMISSIONER OF CONCILIATION Work Phone: [facility] 01-20-1992 poliovirus vaccine, unspecified formulation Hilaria Lisha COMMISSIONER OF CONCILIATION Work Phone: [facility] 1991 diphtheria, tetanus toxoids and acellular pertussis vaccine, unspecified formulation Hilaria Lisha COMMISSIONER OF CONCILIATION Work Phone: [facility] 1991 haemophilus influenz ae type b vaccine, conjugate unspecified formulation Hilaria Lisha COMMISSIONER OF CONCILIATION Work Phone: [facility] 1991 poliovirus vaccine, unspecified formulation Hilaria Lisha COMMISSIONER OF CONCILIATION Work Phone: [facility] NEGATED: Highlighted row has not occurred!01-20-2020 measles, mumps and rubella virus vaccine [place], [place] Payers Date Payer Category Payer Unknown [employer] PPO [id number] 2020-Present [phone] [address] [place] [address] [id number] 2020 Unknown [id number] 2019 Private Health Insurance [facility] [id number] 2019-Present [phone] [address] [place] [address] [id number] 2018 Unknown [employer] LEMOS/MITCHEL/HMO/PPO xxxxxxxxxxxx 2018-Present xxxxxxxxxxxx [id number] 2018 Private Health Insurance [id number] 2018 Self-pay 1990 Unknown [id number] 1991 Unknown [id number] 1991 Unknown [id number] .1991 Unknown [id number] .90 1991 Unknown [id number] .1991 Unknown [id number] .90 1991 Unknown [id number] 2.840.1.130193.3.579.2 .1991 Unknown [id number] .1991 Unknown [id number] .1991 Unknown [id number] .1991 Unknown [id number] .1991 Unknown [id number] [id number] .47 1991 Unknown [id number] 1991 Unknown [id number] .47 1991 Unknown [id number] .[id number] Unknown xxxxxxxxx [id number] 3 Unknown [id number] Social History Date Type Detail Facility Start: 05-17-2017 End: 04-19-2022 Tobacco smoking status NHIS Never smoker [facility] Start: 1990 Sex Assigned At Not on file [facility] Start: 01-13-2019 Alcohol intake Current drinke r of alcohol (finding) [facility] Start: 07-07-2015 Alcohol Comment socially [facility] Start: 01-19-2020 End: 06-27-2021 Tobacco use and exposure Never used [facility] [place] Start: 01-19-2020 End: 04-16-2022 Alcohol intake Ex-drinker (finding) [facility] [place] Start: 06-17-2021 End: 07-23-2022 Exposure to SARS-CoV-2 (event) Not sure [facility] [place], [place] Start: 06-27-2021 End: 11-16-2021 Cigarette pack-years [facility] Start: 11-16-2021 History SDOH Alcohol Frequency 1 [facility] Start: 11-16-2021 History SDOH Alcohol Std Drinks 0 [facility] Start: 11-16-2021 History SDOH Social Connections Phone 5 [facility] Start: 11-16-2021 History SDOH Social Connections [facility] 3 [facility] Start: 11-16-2021 History SDOH Social Connections Meetings 2 [facility] Start: 11-16-2021 History SDOH Financial 4 [facility] Start: 08-25-2021 End: 11-16-2021 Humiliation, Afraid, Rape, and Kick questionnaire [HARK] [facility] Within the last year , have you been afraid of your partner or ex-partner? No [facility] Do you belong to any clubs or organizations such as cheondoism groups, unions, fraternal or athletic groups, or school groups? Yes [facility] Are you now , , , , never or living with a partner? [facility] How often to you hav e a drink containing alcohol? Never [facility] How many standard dr inks containing alcohol do you have on a typical day? Patient does not drink [facility] How hard is it for y ou to pay for the very basics like food, housing, medical care, and heating Not very hard [facility] Do you feel stress - tense, restless, nervous, or anxious, or unable to sleep at night because your mind is troubled all the time - these days [OSQ] Only a little [facility] (I/We) worried luz maria (my/our) food would run out before (I/we) got money to buy more. Never true [facility] Clinical Notes 10-05-2020 to 07-24-2022 Aleida Aceves MA - 07/24/2022 10:30 AM Kumar Suarez Jr., DO - 07/11/2022 2:15 PM EDTDamónican Marcia Husain CNP - 04/16/2022 10:59 AM ESTPatient InstructionsAttachments Note Date & Type Note Facility 07-24-2022 History of Present illness Narrative Patient here for nurse visit suture removal. Suture well intact no complications. No questions at this time. Follow up scheduled as needed. documented in this encounter [facility] 07-11-2022 History of Present illness Narrative OPERATIVE REPORT PROCEDURE: EXCISION 07/11/2022 PREOPERATIVE DIAGNOSIS: EIC X 3 POST OPERATIVE DIAGNOSIS: Same INDICATION: painful SIZE OF LESION PREOP: 0.8 cm x 3 PREOPERATIVE MEDICATION: None ANESTHESIA: 1% Lidocaine with epinephrine approximately 3 cc LOCATION: Scalp LENGTH OF FINAL SUTURE LINE: 3 cm TYPE OF CLOSURE: Layered intermediate 4-0 monocryl deep sutures and 4-0 prolene superficial sutures DRESSING: Aquaphor, Telfa and paper tape COMMENT: After informed consent was obtained, including but not limited to the risk of scar, bleeding, infection and recurrence, the skin was prepped with chlorhexadine and marked with 2 mm margins. Excision was carried out through the full thickness of the dermis into the deep subcutaneous tissue. The specimen was placed in formalin and sent routine pathological examination. Hemostasis was achieved with electrocautery. In order to reduced wound tension, undermining was carried out circumferentially . Wound closure was performed as above. The estimated blood loss was minimal. There were no complications. Wound care instructions were provided to the patient. Superficial suture removal arrangements were made with the patient. PERFORMED BY: Tin Suarez DO documented in this encounter [facility] 04-16-2022 History of Present illness Narrative [facility] [address] [facility] [address] [facility] [address] Patient Demographics: Guille Pandya [address] [facility] [id number] (home) Date of : 1990 HPI WITH ASSESSMENT AND PLAN : Hypertension This is a chronic problem. The current episode started more than 1 year ago. The problem is controlled. Pertinent negatives include no chest pain, headaches, neck pain, palpitations or shortness of breath. There are no associated agents to hypertension. Risk factors for coronary artery disease include family history, obesity and stress. Past treatments include central alpha agonists. The current treatment provides significant improvement. Compliance problems include diet. I had the pleasure of seeing Guille today. This 31-year-old female . Hypertension is well controlled on her labetalol just 100 twice a day. She overall reports being in good health. She has 3 small cysts on her scalp that she would like to have removed by Dermatology. That referral has been made. Care gaps otherwise are closed. She is going to get her flu shot today. Other concerns, assessments unremarkable. She will plan to follow up in 6 months or as needed. Problem List Items Addressed This Visit None Visit Diagnoses Scalp cyst - Primary Relevant Orders Ambulatory referral to Dermatology Current Outpatient Medications: cetirizine (ZYRTEC) 10 MG tablet, Take 1 (one) tablet (10 mg total) by mouth daily ., Disp: , Rfl: labetaloL (NORMODYNE) 100 MG tablet, Take 1 (one) tablet (100 mg total) by mouth 2 (two) times a day ., Disp: 180 tablet, Rfl: 1 metFORMIN (GLUCOPHAGE-XR) 500 MG 24 hr tablet, Take 1 (one) tablet (500 mg total) by mouth daily with breakfast ., Disp: 30 tablet, Rfl: 2 nut.tx.comp. immune systm,reg (NUT.TX.COMP. IMMUNE SYSTM,PLUS ORAL), Take by mouth ., Disp: , Rfl: [id number] oil 400 mcg-35 mg -25 mg-5 mg Chew, Chew and Swallow 1 tablet daily ., Disp: , Rfl: no.82/iron/folate no2 (TL FOLATE ORAL), Take 1,333 mcg by mouth Folic acid 800 mcg No iron ., Disp: , Rfl: Condition and plan discussed with patient in detail, patient agrees with plan. For any new medications prescribed today, patient was educated about indications for the medication, how to take the medication and potential side effects of the medications. Risk, benefits, and side effects of medicines discussed with the patient, patient agrees with plan. Goals Addressed None Most recent laboratory (CBC, Hepatic, Renal, Thyroid and Lipid panel) were reviewed, addressed and were found to be satisfactory other than what has been noted above in the A&P. Most recent radiology imaging, and other study results were reviewed and discussed with patient. Patient to return to office: No follow-ups on file. Discussed elevated Body Mass Index (BMI): Advised regular exercise. Discussed elevated Body Mass Index (BMI): Advised healthy and appropriate diet. Rationale: Overweight (Findings) BMI Counseling given: Not Answered Chief Complaint Patient presents with Gap Closure (Health Maintenance) Sequential Influenza Vaccine(1) due on 11/09/2021 Wellness Visit due on 03/01/2022 Annual Exam Hypertension Check up for refills Cyst Cysts on head, needs new referral to Derm, has had them removed in the past The following portions of the patient's history were reviewed and updated as appropriate: allergies, current medications, past family history, past medical history, past social history, past surgical history and problem list. Past History Past Medical History: Diagnosis Date Allergy grass,ragweeds,dust mites,mold, dandilions Breech presentation with problem 01/14/2020 - 01/14/2020 breech presentation Diabetes mellitus (HCC) Gestational Diabetes Gestational diabetes mellitus (GDM) affecting 01/14/2020 GCT 152 GTT 84 /187/ 162 / 139 - has home supplies for pattern testing - needs follow up screening for DM High-risk 06/27/2021 Hypertension 01/14/2020 Had Pre-eclampsia and BP never came back down Severe preeclampsia, third trimester 01/14/2020 - BPP 160/90 - 3+ protein - Patient to go to L&D for further evaluation for preeclampsia. - Discussed possibility of BMZ and starting toward delivery, however fetus is BREECH - Pt aware the mode / timing of delivery will be based upon clinical findings on L&D. New problem 01/14/2020 Past Surgical History: Procedure Laterality Date SECTION, LOW TRANSVERSE 01/17/2020 scalp cysts removed SEPTO-NASAL RECONSTRUCTION N/A 07/18/2015 Procedure: SEPTO-NASAL RECONSTRUCTION W SMR TURINATES; Surgeon: Rober Castle MD; Location: [facility] Main OR; Service: WISDOM TOOTH EXTRACTION age 17 Current Outpatient Medications Medication Sig Dispense Refill cetirizine (ZYRTEC) 10 MG tablet Take 1 (one) tablet (10 mg total) by mouth daily . labetaloL (NORMODYNE) 100 MG tablet Take 1 (one) tablet (100 mg total) by mouth 2 (two) times a day . 180 tablet 1 metFORMIN (GLUCOPHAGE-XR) 500 MG 24 hr tablet Take 1 (one) tablet (500 mg total) by mouth daily with breakfast . 30 tablet 2 nut.tx.comp. immune systm,reg (NUT.TX.COMP. IMMUNE SYSTM,PLUS ORAL) Take by mouth . [id number]-[id number]-xum-vdhz oil 400 mcg-35 mg -25 mg-5 mg Chew Chew and Swallow 1 tablet daily . no.82/iron/folate no2 (TL FOLATE ORAL) Take 1,333 mcg by mouth Folic acid 800 mcg No iron . No current facility-administered medications for this visit. Allergies Allergen Reactions Cefdinir Anaphylaxis Stated throat swelling occured Valium [Diazepam] Anxiety Erythromycin Base Other (See Comments) vomiting Vicodin [Hydrocodone-Acetaminophen] Other (See Comments) Hallucinations Penicillin Rash Tobacco History: reports that she has never smoked. She has never used smokeless tobacco. She reports that she does not currently use alcohol. She reports that she does not use drugs. reports that she has never smoked. She has never used smokeless tobacco. Last Height and Weight with BMI: 106.1 kg (234 lb) 5' 3.5 Body mass index is 40.8 kg/m . Last 3 Weights: Wt Readings from Last 3 Encounters: 04/16/22 106.1 kg (234 lb) 11/16/21 108.9 kg (240 lb) 09/10/21 112 kg (247 lb) ROS: Review of Systems Constitutional: Negative for activity change, appetite change, chills, diaphoresis, fatigue and fever. HENT: Negative for congestion, dental problem, drooling, ear discharge, ear pain, facial swelling, hearing loss, mouth sores, postnasal drip, rhinorrhea, sinus pressure, sore throat, tinnitus and voice change. Eyes: Negative for pain, redness, itching and visual disturbance. Respiratory: Negative for apnea, cough, choking, chest tightness, shortness of breath and wheezing. Cardiovascular: Negative for chest pain, palpitations and leg swelling. Gastrointestinal: Negative for abdominal distention, abdominal pain, anal bleeding, blood in stool, constipation, diarrhea, nausea and vomiting. Endocrine: Negative. Negative for cold intolerance, polydipsia, polyphagia and polyuria. Genitourinary: Negative for difficulty urinating, dysuria, flank pain, frequency, hematuria and urgency. Musculoskeletal: Negative. Negative for arthralgias, back pain, gait problem, joint swelling, myalgias and neck pain. Skin: Negative for rash and wound. 3 new recurrent scalp cyst Allergic/Immunologic: Negative for environmental allergies and food allergies. Neurological: Negative for dizziness, seizures, syncope, facial asymmetry, speech difficulty, weakness, numbness and headaches. Hematological: Does not bruise/bleed easily. Psychiatric/Behavioral: Negative for confusion and sleep disturbance. The patient is not nervous/anxious and is not hyperactive. PHYSICAL EXAM : Vitals: 04/16/22 1004 BP: 117/76 Pulse: 83 SpO2: 97% Weight: 106.1 kg (234 lb) Height: 5' 3.5 Physical Exam Vitals and nursing note reviewed. Constitutional: General: She is not in acute distress. Appearance: Normal appearance. She is well-developed. She is obese. She is not ill-appearing or toxic-appearing. HENT: Head: Normocephalic and atraumatic. Right Ear: Hearing, tympanic membrane, ear canal and external ear normal. Left Ear: Hearing, tympanic membrane, ear canal and external ear normal. Nose: Nose normal. Mouth/Throat: Pharynx: Uvula midline. No oropharyngeal exudate. Eyes: General: Lids are normal. Conjunctiva/sclera: Conjunctivae normal. Pupils: Pupils are equal, round, and reactive to light. Neck: Thyroid: No thyromegaly. Vascular: No JVD. Trachea: Trachea normal. No tracheal deviation. Cardiovascular: Rate and Rhythm: Normal rate and regular rhythm. Heart sounds: Normal heart sounds, S1 normal and S2 normal. No murmur heard. No friction rub. No gallop. Pulmonary: Effort: Pulmonary effort is normal. No respiratory distress. Breath sounds: Normal breath sounds. No wheezing, rhonchi or rales. Chest: Chest wall: No tenderness. Abdominal: General: Bowel sounds are normal. There is no distension. Palpations: Abdomen is soft. There is no mass. Tenderness: There is no abdominal tenderness. There is no guarding or rebound. Musculoskeletal: General: No tenderness. Normal range of motion. Cervical back: Full passive range of motion without pain, normal range of motion and neck supple. Lymphadenopathy: Cervical: No cervical adenopathy. Skin: General: Skin is warm and dry. Findings: No erythema or rash. Neurological: Mental Status: She is alert and oriented to person, place, and time. GCS: GCS eye subscore is 4. GCS verbal subscore is 5. GCS motor subscore is 6. Cranial Nerves: No cranial nerve deficit. Coordination: Coordination normal. Deep Tendon Reflexes: Reflexes are normal and symmetric. Psychiatric: Speech: Speech normal. Behavior: Behavior normal. Thought Content: Thought content normal. Judgment: Judgment normal. Labs Metabolic Panels: Potassium Date Value Ref Range Status 06/28/2021 4.1 3.5 - 5.1 mmol/L Final Chloride Date Value Ref Range Status 06/28/2021 108 98 - 108 mmol/L Final 05/06/2013 105 98 - 107 MMOL/L Bicarbonate Date Value Ref Range Status 06/28/2021 22 21 - 32 mmol/L Final Anion Gap Date Value Ref Range Status 06/28/2021 10 10 - 20 mmol/L Final Glucose Date Value Ref Range Status 06/28/2021 93 65 - 99 mg/dL Final BUN Date Value Ref Range Status 06/28/2021 12 8 - 25 mg/dL Final 05/06/2013 11 6 - 20 MG/DL Creatinine Date Value Ref Range Status 06/28/2021 0.79 0.40 - 1.10 mg/dL Final eGFR Date Value Ref Range Status 06/28/2021 101 >=60 mL/min/1.73 m2 Final GFR, Non Date Value Ref Range Status 05/06/2013 >60 BUN/Creatinine Ratio Date Value Ref Range Status 06/28/2021 15.2 10.0 - 20.0 Final Total Protein Date Value Ref Range Status 06/28/2021 7.7 6.0 - 8.0 g/dL Final Albumin Date Value Ref Range Status 06/28/2021 4.2 3.2 - 5.2 g/dL Final Calcium Date Value Ref Range Status 06/28/2021 9.6 8.4 - 10.2 mg/dL Final Alkaline Phosphatase Date Value Ref Range Status 06/28/2021 86 40 - 140 U/L Final AST Date Value Ref Range Status 06/28/2021 19 0 - 45 U/L Final ALT Date Value Ref Range Status 06/28/2021 29 14 - 65 U/L Final Total Bilirubin Date Value Ref Range Status 06/28/2021 0.5 0.0 - 1.3 mg/dL Final Hemoglobin A1C Date Value Ref Range Status 06/28/2021 5.2 4.0 - 5.6 % Final Labs Lipid Panels: No results found for: CHOL, TRIG, HDL, CHOLHDL, LDLCALC, NONHDL Labs Complete Blood Count: WBC Date Value Ref Range Status 06/28/2021 8.24 4.50 - 11.00 K/mcL Final 05/06/2013 10.2 4.8 - 10.8 K/UL RBC Date Value Ref Range Status 06/28/2021 5.15 4.00 - 5.20 M/mcL Final 05/06/2013 5.42 (H) 4.20 - 5.40 M/UL Hemoglobin Date Value Ref Range Status 06/28/2021 14.5 12.0 - 16.0 g/dL Final 05/06/2013 16.1 (H) 12.0 - 16.0 G/DL Hematocrit Date Value Ref Range Status 06/28/2021 42.6 36.0 - 46.0 % Final 05/06/2013 44.0 37.0 - 47.0 % MCV Date Value Ref Range Status 06/28/2021 82.7 80.0 - 100.0 fL Final 05/06/2013 81.2 81.0 - 99.0 U3 MCH Date Value Ref Range Status 06/28/2021 28.2 26.0 - 34.0 pg Final 05/06/2013 29.7 27.0 - 33.0 UUG MCHC Date Value Ref Range Status 06/28/2021 34.0 31.0 - 37.0 g/dL Final Platelets Date Value Ref Range Status 06/28/2021 266 150 - 400 K/mcL Final RDW Date Value Ref Range Status 05/06/2013 12.5 11.9 - 15.1 % RDW - CV Date Value Ref Range Status 06/28/2021 12.4 11.6 - 14.8 % Final MPV Date Value Ref Range Status 06/28/2021 10.1 9.4 - 12.4 fL Final Health Maintenance Topic Date Due Sequential Influenza Vaccine (1) 11/09/2021 Wellness Visit 03/01/2022 Hepatitis C Screening 08/25/2022 (Originally 09/23/2009) COVID-19 Vaccine (3 - Booster for Pfizer series) 08/25/2022 (Originally 01/27/2021) HIV Screening 08/25/2022 (Originally 09/23/2006) Depression Screening (PHQ-2/9) 08/25/2022 Pap Smear 03/02/2023 Tetanus: Every 10yrs 11/08/2029 Pneumococcal Vaccine: Ped or At-Risk Aged Out Health Maintenance Review Hilaria Husain CNP documented in this encounter [facility] 11-16-2021 History of Present illness Narrative [facility] [address] [facility] [id number] Patient Demographics: Guille Matos [address] [place] [phone] (home) Date of : 1990 HPI WITH ASSESSMENT AND PLAN : Urinary Tract Infection This is a new problem. The current episode started in the past 7 days. The problem occurs every urination. The quality of the pain is described as aching. The pain is moderate. There has been no fever. There is No history of pyelonephritis. Associated symptoms include frequency, hesitancy and a possible . Pertinent negatives include no chills, discharge, flank pain, hematuria, nausea, sweats, urgency or vomiting. She has tried acetaminophen and increased fluids for the symptoms. The treatment provided no relief. Problem List Items Addressed This Visit None Visit Diagnoses Urinary frequency - Primary Relevant Orders Urinalysis Urine Aerobic Culture , Urine Current Outpatient Medications: cetirizine (ZYRTEC) 10 MG tablet, Take 10 mg by mouth daily ., Disp: , Rfl: labetaloL (NORMODYNE) 100 MG tablet, Take 1 (one) tablet (100 mg total) by mouth 2 (two) times a day ., Disp: 180 tablet, Rfl: 1 metFORMIN (GLUCOPHAGE-XR) 500 MG 24 hr tablet, , Disp: , Rfl: norethindrone (MICRONOR) 0.35 mg tablet, , Disp: , Rfl: nut.tx.comp. immune systm,reg (NUT.TX.COMP. IMMUNE SYSTM,PLUS ORAL), Take by mouth ., Disp: , Rfl: [id number]-jak-rnf-eqcb oil 400 mcg-35 mg -25 mg-5 mg Chew, Chew and Swallow 1 tablet daily ., Disp: , Rfl: no.82/iron/folate no2 (TL FOLATE ORAL), Take 1,333 mcg by mouth Folic acid 800 mcg No iron ., Disp: , Rfl: Condition and plan discussed with patient in detail, patient agrees with plan. For any new medications prescribed today, patient was educated about indications for the medication, how to take the medication and potential side effects of the medications. Risk, benefits, and side effects of medicines discussed with the patient, patient agrees with plan. Goals Addressed None Most recent laboratory (CBC, Hepatic, Renal, Thyroid and Lipid panel) were reviewed, addressed and were found to be satisfactory other than what has been noted above in the A&P. Most recent radiology imaging, and other study results were reviewed and discussed with patient. Patient to return to office: No follow-ups on file. Discussed elevated Body Mass Index (BMI): Advised regular exercise. Discussed elevated Body Mass Index (BMI): Advised healthy and appropriate diet. Rationale: Overweight (Findings) BMI Counseling given: Not Answered Chief Complaint Patient presents with Urinary Tract Infection For last week, cloudy urine, strong odor, pelvic pain, frequency, urgency The following portions of the patient's history were reviewed and updated as appropriate: allergies, current medications, past family history, past medical history, past social history, past surgical history and problem list. Past History Past Medical History: Diagnosis Date Allergy grass,ragweeds,dust mites,mold, dandilions Breech presentation with problem 01/14/2020 - 01/14/2020 breech presentation Diabetes mellitus (HCC) Gestational Diabetes Gestational diabetes mellitus (GDM) affecting 01/14/2020 GCT 152 GTT 84 /187/ 162 / 139 - has home supplies for pattern testing - needs follow up screening for DM High-risk 06/27/2021 Hypertension 01/14/2020 Had Pre-eclampsia and BP never came back down Severe preeclampsia, third trimester 01/14/2020 - BPP 160/90 - 3+ protein - Patient to go to L&D for further evaluation for preeclampsia. - Discussed possibility of BMZ and starting toward delivery, however fetus is BREECH - Pt aware the mode / timing of delivery will be based upon clinical findings on L&D. New problem 01/14/2020 Past Surgical History: Procedure Laterality Date SECTION, LOW TRANSVERSE 01/17/2020 scalp cysts removed SEPTO-NASAL RECONSTRUCTION N/A 07/18/2015 Procedure: SEPTO-NASAL RECONSTRUCTION W SMR TURINATES; Surgeon: Rober Castle MD; Location: [facility] Main OR; Service: WISDOM TOOTH EXTRACTION age 17 Current Outpatient Medications Medication Sig Dispense Refill cetirizine (ZYRTEC) 10 MG tablet Take 10 mg by mouth daily . labetaloL (NORMODYNE) 100 MG tablet Take 1 (one) tablet (100 mg total) by mouth 2 (two) times a day . 180 tablet 1 metFORMIN (GLUCOPHAGE-XR) 500 MG 24 hr tablet norethindrone (MICRONOR) 0.35 mg tablet nut.tx.comp. immune systm,reg (NUT.TX.COMP. IMMUNE SYSTM,PLUS ORAL) Take by mouth . [id number] oil 400 mcg-35 mg -25 mg-5 mg Chew Chew and Swallow 1 tablet daily . no.82/iron/folate no2 (TL FOLATE ORAL) Take 1,333 mcg by mouth Folic acid 800 mcg No iron . No current facility-administered medications for this visit. Allergies Allergen Reactions Cefdinir Anaphylaxis Stated throat swelling occured Valium [Diazepam] Anxiety Erythromycin Base Other (See Comments) vomiting Vicodin [Hydrocodone-Acetaminophen] Other (See Comments) Hallucinations Penicillin Rash Tobacco History: reports that she has never smoked. She has never used smokeless tobacco. She reports that she does not currently use alcohol. She reports that she does not use drugs. reports that she has never smoked. She has never used smokeless tobacco. Last Height and Weight with BMI: 108.9 kg (240 lb) 5' 3.5 Body mass index is 41.85 kg/m . Last 3 Weights: Wt Readings from Last 3 Encounters: 11/16/21 108.9 kg (240 lb) 09/10/21 112 kg (247 lb) 08/25/21 108.4 kg (239 lb) ROS: Review of Systems Constitutional: Negative for activity change, appetite change, chills, diaphoresis, fatigue and fever. HENT: Negative for congestion, dental problem, drooling, ear discharge, ear pain, facial swelling, hearing loss, mouth sores, postnasal drip, rhinorrhea, sinus pressure, sore throat, tinnitus and voice change. Eyes: Negative for pain, redness, itching and visual disturbance. Respiratory: Negative for apnea, cough, choking, chest tightness, shortness of breath and wheezing. Cardiovascular: Negative for chest pain, palpitations and leg swelling. Gastrointestinal: Negative for abdominal distention, abdominal pain, anal bleeding, blood in stool, constipation, diarrhea, nausea and vomiting. Endocrine: Negative. Negative for cold intolerance, polydipsia, polyphagia and polyuria. Genitourinary: Positive for decreased urine volume, frequency and hesitancy. Negative for difficulty urinating, dysuria, flank pain, hematuria, urgency, vaginal bleeding, vaginal discharge and vaginal pain. Suprapubic pressure Musculoskeletal: Negative. Negative for arthralgias, back pain, gait problem, joint swelling, myalgias and neck pain. Skin: Negative for rash and wound. Allergic/Immunologic: Negative for environmental allergies and food allergies. Neurological: Negative for dizziness, seizures, syncope, facial asymmetry, speech difficulty, weakness, numbness and headaches. Hematological: Does not bruise/bleed easily. Psychiatric/Behavioral: Negative for confusion and sleep disturbance. The patient is not nervous/anxious and is not hyperactive. PHYSICAL EXAM : Vitals: 11/16/21 0914 BP: 127/84 Pulse: 88 SpO2: 98% Weight: 108.9 kg (240 lb) Height: 5' 3.5 Physical Exam Vitals and nursing note reviewed. Constitutional: General: She is not in acute distress. Appearance: Normal appearance. She is well-developed. She is not ill-appearing or toxic-appearing. HENT: Head: Normocephalic and atraumatic. Right Ear: Hearing, tympanic membrane, ear canal and external ear normal. Left Ear: Hearing, tympanic membrane, ear canal and external ear normal. Nose: Nose normal. Mouth/Throat: Pharynx: Uvula midline. No oropharyngeal exudate. Eyes: General: Lids are normal. Conjunctiva/sclera: Conjunctivae normal. Pupils: Pupils are equal, round, and reactive to light. Neck: Thyroid: No thyromegaly. Vascular: No JVD. Trachea: Trachea normal. No tracheal deviation. Cardiovascular: Rate and Rhythm: Normal rate and regular rhythm. Heart sounds: Normal heart sounds, S1 normal and S2 normal. No murmur heard. No friction rub. No gallop. Pulmonary: Effort: Pulmonary effort is normal. No respiratory distress. Breath sounds: Normal breath sounds. No wheezing, rhonchi or rales. Chest: Chest wall: No tenderness. Abdominal: General: Bowel sounds are normal. There is no distension. Palpations: Abdomen is soft. There is no mass. Tenderness: There is no abdominal tenderness. There is no guarding or rebound. Musculoskeletal: General: No tenderness. Normal range of motion. Cervical back: Full passive range of motion without pain, normal range of motion and neck supple. Lymphadenopathy: Cervical: No cervical adenopathy. Skin: General: Skin is warm and dry. Findings: No erythema or rash. Neurological: Mental Status: She is alert and oriented to person, place, and time. GCS: GCS eye subscore is 4. GCS verbal subscore is 5. GCS motor subscore is 6. Cranial Nerves: No cranial nerve deficit. Coordination: Coordination normal. Deep Tendon Reflexes: Reflexes are normal and symmetric. Psychiatric: Speech: Speech normal. Behavior: Behavior normal. Thought Content: Thought content normal. Judgment: Judgment normal. Labs Metabolic Panels: Potassium Date Value Ref Range Status 06/28/2021 4.1 3.5 - 5.1 mmol/L Final Chloride Date Value Ref Range Status 06/28/2021 108 98 - 108 mmol/L Final 05/06/2013 105 98 - 107 MMOL/L Bicarbonate Date Value Ref Range Status 06/28/2021 22 21 - 32 mmol/L Final Anion Gap Date Value Ref Range Status 06/28/2021 10 10 - 20 mmol/L Final Glucose Date Value Ref Range Status 06/28/2021 93 65 - 99 mg/dL Final BUN Date Value Ref Range Status 06/28/2021 12 8 - 25 mg/dL Final 05/06/2013 11 6 - 20 MG/DL Creatinine Date Value Ref Range Status 06/28/2021 0.79 0.40 - 1.10 mg/dL Final eGFR Date Value Ref Range Status 06/28/2021 101 >=60 mL/min/1.73 m2 Final GFR, Non Date Value Ref Range Status 05/06/2013 >60 BUN/Creatinine Ratio Date Value Ref Range Status 06/28/2021 15.2 10.0 - 20.0 Final Total Protein Date Value Ref Range Status 06/28/2021 7.7 6.0 - 8.0 g/dL Final Albumin Date Value Ref Range Status 06/28/2021 4.2 3.2 - 5.2 g/dL Final Calcium Date Value Ref Range Status 06/28/2021 9.6 8.4 - 10.2 mg/dL Final Alkaline Phosphatase Date Value Ref Range Status 06/28/2021 86 40 - 140 U/L Final AST Date Value Ref Range Status 06/28/2021 19 0 - 45 U/L Final ALT Date Value Ref Range Status 06/28/2021 29 14 - 65 U/L Final Total Bilirubin Date Value Ref Range Status 06/28/2021 0.5 0.0 - 1.3 mg/dL Final Hemoglobin A1C Date Value Ref Range Status 06/28/2021 5.2 4.0 - 5.6 % Final Labs Lipid Panels: No results found for: CHOL, TRIG, HDL, CHOLHDL, LDLCALC, NONHDL Labs Complete Blood Count: WBC Date Value Ref Range Status 06/28/2021 8.24 4.50 - 11.00 K/mcL Final 05/06/2013 10.2 4.8 - 10.8 K/UL RBC Date Value Ref Range Status 06/28/2021 5.15 4.00 - 5.20 M/mcL Final 05/06/2013 5.42 (H) 4.20 - 5.40 M/UL Hemoglobin Date Value Ref Range Status 06/28/2021 14.5 12.0 - 16.0 g/dL Final 05/06/2013 16.1 (H) 12.0 - 16.0 G/DL Hematocrit Date Value Ref Range Status 06/28/2021 42.6 36.0 - 46.0 % Final 05/06/2013 44.0 37.0 - 47.0 % MCV Date Value Ref Range Status 06/28/2021 82.7 80.0 - 100.0 fL Final 05/06/2013 81.2 81.0 - 99.0 U3 MCH Date Value Ref Range Status 06/28/2021 28.2 26.0 - 34.0 pg Final 05/06/2013 29.7 27.0 - 33.0 UUG MCHC Date Value Ref Range Status 06/28/2021 34.0 31.0 - 37.0 g/dL Final Platelets Date Value Ref Range Status 06/28/2021 266 150 - 400 K/mcL Final RDW Date Value Ref Range Status 05/06/2013 12.5 11.9 - 15.1 % RDW - CV Date Value Ref Range Status 06/28/2021 12.4 11.6 - 14.8 % Final MPV Date Value Ref Range Status 06/28/2021 10.1 9.4 - 12.4 fL Final Health Maintenance Topic Date Due Pap Smear 02/20/2019 Wellness Visit 06/05/2019 Sequential Influenza Vaccine (1) 11/09/2021 Hepatitis C Screening 08/25/2022 (Originally 09/23/2009) COVID-19 Vaccine (3 - Booster for Pfizer series) 08/25/2022 (Originally 05/04/2021) HIV Screening 08/25/2022 (Originally 09/23/2006) Depression Screening (PHQ-2/9) 08/25/2022 Tetanus: Every 10yrs 11/08/2029 Pneumococcal Vaccine: Ped or At-Risk Aged Out Health Maintenance Review Hilaria Husain CNP documented in this encounter [facility] 09-10-2021 Instructions Henrry Barahona CNP - 09/10/2021 1:48 PM EDT Recommend He/she should return to urgent care, make an appointment with their family physician, or go to the emergency room if symptoms persist or get acutely worse. Take over the counter tylenol or ibuprofen as needed for pain- follow package instructions. FOLLOW UP WITH clinical exercise specialist as soon as possible REST AND HYDRATE WELL Instill medication as prescribed Can apply cool or warm compress over left eye as needed for comfort - no more then 15 min. At a time The following attachments cannot be sent through Care Everywhere.Corneal Scratches (Dominican)documented in this encounter [facility] 09-10-2021 History of Present illness Narrative Images from the original note were not included. Patient Name: [facility] Location: [place] [facility] [address] [place] [address], [address] [facility] [id number] Date Of : Date Of Visit: 1990 09/10/2021 MRN# Provider: [id number] Barahona CNP Chief Complaint Patient presents with Eye Pain Left eye pain post being poked accidentally by a plastic knife, contact was removed after injury Assessment & Plan 1. Abrasion of left cornea, initial encounter tetracaine (PONTOCAINE) 0.5 % ophthalmic solution 1 drop ofloxacin (OCUFLOX) 0.3 % ophthalmic solution No follow-ups on file. Medical Decision Making Discussed treatment plan and diagnosis with patient - per HPI , visual acuity screening ( patient not wearing contact in left eye ) and exam- DIAGNOSIS OF abrasion of left cornea is made for which ofloxacin drops are prescribed and recommended to follow up with clinical exercise specialist if symptoms persists. Per exam- no sign of eye trauma noted of left eye and periorbital area. Educated patient on at home management and care of left eye and related symptoms along with S/S of when to seek immediate care by a provider. Patient verbalized understanding and All questions answered. Instructed patient to take or parent to give patient - medication as prescribed Differential diagnosis - CORNEAL ABRASION, CONJUNCTIVITIS - BACTERIAL VS VIRAL VS ALLERGIC, UVEITIS, blepharitis, STYE, CHALAZION, FOREIGN BODY IN EYE, CORNEAL ULCER, DRY EYES, eye trauma Additional Clinical Comments Educated patient and/or guardian about signs and symptoms that would warrant further immediate evaluation. Recommended that they should return to urgent care, make an appointment with their family physician, or go to the emergency room if symptoms persist or get acutely worse. Recommended follow up within the next week with their PCP or to get established with a PCP soon in order to follow up appropriately. Subjective 30 y.o. female presents with Eye Pain (Left eye pain post being poked accidentally by a plastic knife, contact was removed after injury) Eye Pain The right eye is affected. This is a new problem. The current episode started today. The problem has been unchanged. Injury mechanism: her toddler pocked her left eye with plastic fork. The pain is at a severity of 4/10. She Wears contacts. Associated symptoms include blurred vision (left eye - due to not wearing contact), eye redness (left eye), a foreign body sensation (left eye) and photophobia (left eye). Pertinent negatives include no double vision, fever, itching, nausea, recent URI or vomiting. Treatments tried: cold water rinse. The treatment provided no relief. Review Of Systems Review of Systems Constitutional: Negative for fever. Eyes: Positive for blurred vision (left eye - due to not wearing contact), photophobia (left eye), pain and redness (left eye). Negative for double vision and itching. Gastrointestinal: Negative for nausea and vomiting. Medical History Past Medical History: Diagnosis Date Allergy grass,ragweeds,dust mites,mold, dandilions Breech presentation with problem 01/14/2020 - 01/14/2020 breech presentation Diabetes mellitus (HCC) Gestational Diabetes Gestational diabetes mellitus (GDM) affecting 01/14/2020 GCT 152 GTT 84 /187/ 162 / 139 - has home supplies for pattern testing - needs follow up screening for DM High-risk 06/27/2021 Hypertension 01/14/2020 Had Pre-eclampsia and BP never came back down Severe preeclampsia, third trimester 01/14/2020 - BPP 160/90 - 3+ protein - Patient to go to L&D for further evaluation for preeclampsia. - Discussed possibility of BMZ and starting toward delivery, however fetus is BREECH - Pt aware the mode / timing of delivery will be based upon clinical findings on L&D. New problem 01/14/2020 Past Surgical History: Procedure Laterality Date SECTION, LOW TRANSVERSE 01/17/2020 scalp cysts removed SEPTO-NASAL RECONSTRUCTION N/A 07/18/2015 Procedure: SEPTO-NASAL RECONSTRUCTION W SMR TURINATES; Surgeon: Rober Castle MD; Location: [facility] Main OR; Service: WISDOM TOOTH EXTRACTION age 17 Patient Active Problem List Diagnosis Abnormal ultrasound History of PCOS Insulin resistance Hypertension Uses oral contraception Social History Social History Tobacco Use Smoking status: Never Smokeless tobacco: Never Vaping Use Vaping Use: Never used Substance Use Topics Alcohol use: Not Currently Comment: socially Drug use: Never Family History Family History Problem Relation Age of Onset Hypertension Father Cancer Paternal Grandfather Rheum arthritis Maternal Aunt Rheum arthritis Paternal Grandmother COPD Paternal Grandmother Heart disease Maternal Grandfather Stroke Maternal Grandfather Miscarriages / Stillbirths Maternal Grandmother Stroke Maternal Grandmother Asthma Sister Asthma Brother Objective Physical Exam BP 132/83 Pulse 94 Temp 98.5 F (36.9 C) (Temporal) Resp 16 Wt 112 kg (247 lb) SpO2 97% BMI 43.07 kg/m Vision/Hearing Exam: Vision Screening Right eye Left eye Both eyes Without correction >20/200 20/40 With correction 20/40 Physical Exam Vitals and nursing note reviewed. Constitutional: General: She is not in acute distress. Appearance: Normal appearance. She is not ill-appearing, toxic-appearing or diaphoretic. Eyes: General: Lids are normal. Right eye: No foreign body, discharge or hordeolum. Left eye: No foreign body, discharge or hordeolum. Extraocular Movements: Extraocular movements intact. Conjunctiva/sclera: Right eye: Right conjunctiva is not injected. No chemosis, exudate or hemorrhage. Left eye: Left conjunctiva is injected. No chemosis, exudate or hemorrhage. Pupils: Pupils are equal, round, and reactive to light. Left eye: Corneal abrasion and fluorescein uptake present. Comments: Left periorbital area - without signs of infection, edema, swelling, tenderness, redness or compromise Patient's near vision intact on exam- able to identify correctly numbers of fingers I was holding without difficulty . Gait steady on ambulation and able to navigate in room without difficulty. Pulmonary: Effort: Pulmonary effort is normal. No respiratory distress. Neurological: General: No focal deficit present. Mental Status: She is alert and oriented to person, place, and time. Psychiatric: Mood and Affect: Mood normal. Behavior: Behavior normal. Behavior is cooperative. Procedure Notes Procedures Results No results found for this or any previous visit (from the past 168 hour(s)). No orders to display Orders Placed This Visit No orders of the defined types were placed in this encounter. Medication List At End Of Visit Current Outpatient Medications Medication Sig Dispense Refill cetirizine (ZYRTEC) 10 MG tablet Take 10 mg by mouth daily . labetaloL (NORMODYNE) 100 MG tablet Take 1 (one) tablet (100 mg total) by mouth 2 (two) times a day . 180 tablet 1 metFORMIN (GLUCOPHAGE-XR) 500 MG 24 hr tablet norethindrone (MICRONOR) 0.35 mg tablet nut.tx.comp. immune systm,reg (NUT.TX.COMP. IMMUNE SYSTM,PLUS ORAL) Take by mouth . no.82/iron/folate no2 (TL FOLATE ORAL) Take 1,333 mcg by mouth Folic acid 800 mcg No iron . ofloxacin (OCUFLOX) 0.3 % ophthalmic solution Administer 2 (two) drops into the left eye 4 (four) times a day for 7 days . 10 mL 0 [id number] oil 400 mcg-35 mg -25 mg-5 mg Chew Chew and Swallow 1 tablet daily . Current Facility-Administered Medications Medication Dose Route Frequency Provider Last Rate Last Admin tetracaine (PONTOCAINE) 0.5 % ophthalmic solution 1 drop 1 drop Left Eye Once Henrry Barahona CNP Patient Instructions Recommend He/she should return to urgent care, make an appointment with their family physician, or go to the emergency room if symptoms persist or get acutely worse. Take over the counter tylenol or ibuprofen as needed for pain- follow package instructions. FOLLOW UP WITH clinical exercise specialist as soon as possible REST AND HYDRATE WELL Instill medication as prescribed Can apply cool or warm compress over left eye as needed for comfort - no more then 15 min. At a time documented in this encounter [facility] 08-25-2021 History of Present illness Narrative [facility] [address] [facility] [id number] Patient Demographics: [place] [address] [facility] [address] (home) Date of : 1990 HPI WITH ASSESSMENT AND PLAN : Hypertension This is a chronic problem. The current episode started more than 1 year ago. The problem is unchanged. The problem is controlled. Associated symptoms include headaches (mild , intermittent). Pertinent negatives include no chest pain, neck pain, palpitations or shortness of breath. There are no associated agents to hypertension. Risk factors for coronary artery disease include obesity and stress. Past treatments include alpha 1 blockers. The current treatment provides significant improvement. Compliance problems include diet and exercise. Ear Drainage There is pain in both (concerned wax in eaers.) ears. This is a new problem. The current episode started yesterday. The problem has been unchanged. There has been no fever. The patient is experiencing no pain. Associated symptoms include headaches (mild , intermittent). Pertinent negatives include no abdominal pain, coughing, diarrhea, ear discharge, hearing loss, neck pain, rash, rhinorrhea, sore throat or vomiting. She has tried nothing for the symptoms. The treatment provided no relief. There is no history of a chronic ear infection, hearing loss or a tympanostomy tube. Problem List Items Addressed This Visit Cardiovascular and Mediastinum Hypertension Relevant Medications labetaloL (NORMODYNE) 100 MG tablet Current Outpatient Medications: cetirizine (ZYRTEC) 10 MG tablet, Take 10 mg by mouth daily ., Disp: , Rfl: metFORMIN (GLUCOPHAGE-XR) 500 MG 24 hr tablet, , Disp: , Rfl: norethindrone (MICRONOR) 0.35 mg tablet, , Disp: , Rfl: nut.tx.comp. immune systm,reg (NUT.TX.COMP. IMMUNE SYSTM,PLUS ORAL), Take by mouth ., Disp: , Rfl: [id number] oil 400 mcg-35 mg -25 mg-5 mg Chew, Chew and Swallow 1 tablet daily ., Disp: , Rfl: no.82/iron/folate no2 (TL FOLATE ORAL), Take 1,333 mcg by mouth Folic acid 800 mcg No iron ., Disp: , Rfl: labetaloL (NORMODYNE) 100 MG tablet, Take 1 (one) tablet (100 mg total) by mouth 2 (two) times a day ., Disp: 180 tablet, Rfl: 1 Condition and plan discussed with patient in detail, patient agrees with plan. For any new medications prescribed today, patient was educated about indications for the medication, how to take the medication and potential side effects of the medications. Risk, benefits, and side effects of medicines discussed with the patient, patient agrees with plan. Goals Addressed None Most recent laboratory (CBC, Hepatic, Renal, Thyroid and Lipid panel) were reviewed, addressed and were found to be satisfactory other than what has been noted above in the A&P. Most recent radiology imaging, and other study results were reviewed and discussed with patient. Patient to return to office: No follow-ups on file. Discussed elevated Body Mass Index (BMI): Advised regular exercise. Discussed elevated Body Mass Index (BMI): Advised healthy and appropriate diet. Rationale: Overweight (Findings) BMI Counseling given: Not Answered Chief Complaint Patient presents with Hypertension Pt says she feels great. Says she does not test as well as she should. But says she feels the best she has since her daughter was born. Ear Drainage Pt says her ears are draining. Says she has really bad allergies. But feels there is something in the Rt ear The following portions of the patient's history were reviewed and updated as appropriate: allergies, current medications, past family history, past medical history, past social history, past surgical history and problem list. Past History Past Medical History: Diagnosis Date Allergy grass,ragweeds,dust mites,mold, dandilions Diabetes mellitus (HCC) Gestational Diabetes Hypertension 01/14/2020 Had Pre-eclampsia and BP never came back down Past Surgical History: Procedure Laterality Date SECTION, LOW TRANSVERSE 01/17/2020 scalp cysts removed SEPTO-NASAL RECONSTRUCTION N/A 07/18/2015 Procedure: SEPTO-NASAL RECONSTRUCTION W SMR TURINATES; Surgeon: Rober Castle MD; Location: [facility] Main OR; Service: WISDOM TOOTH EXTRACTION age 17 Current Outpatient Medications Medication Sig Dispense Refill cetirizine (ZYRTEC) 10 MG tablet Take 10 mg by mouth daily . metFORMIN (GLUCOPHAGE-XR) 500 MG 24 hr tablet norethindrone (MICRONOR) 0.35 mg tablet nut.tx.comp. immune systm,reg (NUT.TX.COMP. IMMUNE SYSTM,PLUS ORAL) Take by mouth . [id number] oil 400 mcg-35 mg -25 mg-5 mg Chew Chew and Swallow 1 tablet daily . no.82/iron/folate no2 (TL FOLATE ORAL) Take 1,333 mcg by mouth Folic acid 800 mcg No iron . labetaloL (NORMODYNE) 100 MG tablet Take 1 (one) tablet (100 mg total) by mouth 2 (two) times a day . 180 tablet 1 No current facility-administered medications for this visit. Allergies Allergen Reactions Cefdinir Anaphylaxis Stated throat swelling occured Valium [Diazepam] Anxiety Erythromycin Base Other (See Comments) vomiting Vicodin [Hydrocodone-Acetaminophen] Other (See Comments) Hallucinations Penicillin Rash Tobacco History: reports that she has never smoked. She has never used smokeless tobacco. She reports previous alcohol use. She reports that she does not use drugs. reports that she has never smoked. She has never used smokeless tobacco. Last Height and Weight with BMI: 108.4 kg (239 lb) 5' 3.5 Body mass index is 41.67 kg/m . Last 3 Weights: Wt Readings from Last 3 Encounters: 08/25/21 108.4 kg (239 lb) 06/27/21 109.8 kg (242 lb) 01/13/19 99.3 kg (219 lb) ROS: Review of Systems Constitutional: Negative for activity change, appetite change, chills, diaphoresis, fatigue and fever. HENT: Negative for congestion, dental problem, drooling, ear discharge, ear pain, facial swelling, hearing loss, mouth sores, postnasal drip, rhinorrhea, sinus pressure, sore throat, tinnitus and voice change. Eyes: Negative for pain, redness, itching and visual disturbance. Respiratory: Negative for apnea, cough, choking, chest tightness, shortness of breath and wheezing. Cardiovascular: Negative for chest pain, palpitations and leg swelling. Gastrointestinal: Negative for abdominal distention, abdominal pain, anal bleeding, blood in stool, constipation, diarrhea, nausea and vomiting. Endocrine: Negative. Negative for cold intolerance, polydipsia, polyphagia and polyuria. Genitourinary: Negative for difficulty urinating, dysuria, flank pain, frequency, hematuria and urgency. Musculoskeletal: Negative. Negative for arthralgias, back pain, gait problem, joint swelling, myalgias and neck pain. Skin: Negative for rash and wound. Allergic/Immunologic: Negative for environmental allergies and food allergies. Neurological: Positive for headaches (mild , intermittent). Negative for dizziness, seizures, syncope, facial asymmetry, speech difficulty, weakness and numbness. Hematological: Does not bruise/bleed easily. Psychiatric/Behavioral: Negative for confusion and sleep disturbance. The patient is not nervous/anxious and is not hyperactive. PHYSICAL EXAM : Vitals: 08/25/21 0930 BP: 106/72 Pulse: 85 SpO2: 97% Weight: 108.4 kg (239 lb) Height: 5' 3.5 Physical Exam Vitals and nursing note reviewed. Constitutional: General: She is not in acute distress. Appearance: Normal appearance. She is well-developed. She is not ill-appearing or toxic-appearing. HENT: Head: Normocephalic and atraumatic. Right Ear: Hearing, tympanic membrane, ear canal and external ear normal. Left Ear: Hearing, tympanic membrane, ear canal and external ear normal. Nose: Nose normal. Mouth/Throat: Pharynx: Uvula midline. No oropharyngeal exudate. Eyes: General: Lids are normal. Conjunctiva/sclera: Conjunctivae normal. Pupils: Pupils are equal, round, and reactive to light. Neck: Thyroid: No thyromegaly. Vascular: No JVD. Trachea: Trachea normal. No tracheal deviation. Cardiovascular: Rate and Rhythm: Normal rate and regular rhythm. Heart sounds: Normal heart sounds, S1 normal and S2 normal. No murmur heard. No friction rub. No gallop. Pulmonary: Effort: Pulmonary effort is normal. No respiratory distress. Breath sounds: Normal breath sounds. No wheezing, rhonchi or rales. Chest: Chest wall: No tenderness. Abdominal: General: Bowel sounds are normal. There is no distension. Palpations: Abdomen is soft. There is no mass. Tenderness: There is no abdominal tenderness. There is no guarding or rebound. Musculoskeletal: General: No tenderness. Normal range of motion. Cervical back: Full passive range of motion without pain, normal range of motion and neck supple. Lymphadenopathy: Cervical: No cervical adenopathy. Skin: General: Skin is warm and dry. Findings: No erythema or rash. Neurological: Mental Status: She is alert and oriented to person, place, and time. GCS: GCS eye subscore is 4. GCS verbal subscore is 5. GCS motor subscore is 6. Cranial Nerves: No cranial nerve deficit. Coordination: Coordination normal. Deep Tendon Reflexes: Reflexes are normal and symmetric. Psychiatric: Speech: Speech normal. Behavior: Behavior normal. Thought Content: Thought content normal. Judgment: Judgment normal. Labs Metabolic Panels: Potassium Date Value Ref Range Status 06/28/2021 4.1 3.5 - 5.1 mmol/L Final Chloride Date Value Ref Range Status 06/28/2021 108 98 - 108 mmol/L Final 05/06/2013 105 98 - 107 MMOL/L Bicarbonate Date Value Ref Range Status 06/28/2021 22 21 - 32 mmol/L Final Anion Gap Date Value Ref Range Status 06/28/2021 10 10 - 20 mmol/L Final Glucose Date Value Ref Range Status 06/28/2021 93 65 - 99 mg/dL Final BUN Date Value Ref Range Status 06/28/2021 12 8 - 25 mg/dL Final 05/06/2013 11 6 - 20 MG/DL Creatinine Date Value Ref Range Status 06/28/2021 0.79 0.40 - 1.10 mg/dL Final eGFR Date Value Ref Range Status 06/28/2021 101 >=60 mL/min/1.73 m2 Final GFR, Non Date Value Ref Range Status 05/06/2013 >60 BUN/Creatinine Ratio Date Value Ref Range Status 06/28/2021 15.2 10.0 - 20.0 Final Total Protein Date Value Ref Range Status 06/28/2021 7.7 6.0 - 8.0 g/dL Final Albumin Date Value Ref Range Status 06/28/2021 4.2 3.2 - 5.2 g/dL Final Calcium Date Value Ref Range Status 06/28/2021 9.6 8.4 - 10.2 mg/dL Final Alkaline Phosphatase Date Value Ref Range Status 06/28/2021 86 40 - 140 U/L Final AST Date Value Ref Range Status 06/28/2021 19 0 - 45 U/L Final ALT Date Value Ref Range Status 06/28/2021 29 14 - 65 U/L Final Total Bilirubin Date Value Ref Range Status 06/28/2021 0.5 0.0 - 1.3 mg/dL Final Hemoglobin A1C Date Value Ref Range Status 06/28/2021 5.2 4.0 - 5.6 % Final Labs Lipid Panels: No results found for: CHOL, TRIG, HDL, CHOLHDL, LDLCALC, NONHDL Labs Complete Blood Count: WBC Date Value Ref Range Status 06/28/2021 8.24 4.50 - 11.00 K/mcL Final 05/06/2013 10.2 4.8 - 10.8 K/UL RBC Date Value Ref Range Status 06/28/2021 5.15 4.00 - 5.20 M/mcL Final 05/06/2013 5.42 (H) 4.20 - 5.40 M/UL Hemoglobin Date Value Ref Range Status 06/28/2021 14.5 12.0 - 16.0 g/dL Final 05/06/2013 16.1 (H) 12.0 - 16.0 G/DL Hematocrit Date Value Ref Range Status 06/28/2021 42.6 36.0 - 46.0 % Final 05/06/2013 44.0 37.0 - 47.0 % MCV Date Value Ref Range Status 06/28/2021 82.7 80.0 - 100.0 fL Final 05/06/2013 81.2 81.0 - 99.0 U3 MCH Date Value Ref Range Status 06/28/2021 28.2 26.0 - 34.0 pg Final 05/06/2013 29.7 27.0 - 33.0 UUG MCHC Date Value Ref Range Status 06/28/2021 34.0 31.0 - 37.0 g/dL Final Platelets Date Value Ref Range Status 06/28/2021 266 150 - 400 K/mcL Final RDW Date Value Ref Range Status 05/06/2013 12.5 11.9 - 15.1 % RDW - CV Date Value Ref Range Status 06/28/2021 12.4 11.6 - 14.8 % Final MPV Date Value Ref Range Status 06/28/2021 10.1 9.4 - 12.4 fL Final Health Maintenance Topic Date Due Wellness Visit Never done Depression Screening (PHQ-2/9) Never done HIV Screening Never done Hepatitis C Screening Never done Pap Smear 02/20/2019 COVID-19 Vaccine (3 - Booster for Pfizer series) 05/04/2021 Sequential Influenza Vaccine (Season Ended) 2021 Tetanus: Every 10yrs 11/08/2029 Pneumococcal Vaccine: Ped or At-Risk Aged Out Health Maintenance Review Hilaria Husain CNP Depression Screening 08/25/2021 Little interest or pleasure in doing things 0 Feeling down, depressed, or hopeless 0 PHQ-2 Total Score 0 documented in this encounter [facility] 07-28-2021 Telephone encounter Note Last OV 06/28/21, next OV 07/31/21 [facility] 07-28-2021 Telephone encounter Note Here are my blood pressures from the last two weeks. I didn't have my list with me some days to write down what it was but on the days I didn't write down the blood pressures they were similar to other days. I have not had any really high or low blood pressure readings. I am almost out of Labetalol and will need to last picker a refill today. [facility] 07-28-2021 Miscellaneous Notes Last OV 06/28/21, next OV 07/31/21 Here are my blood pressures from the last two weeks. I didn't have my list with me some days to write down what it was but on the days I didn't write down the blood pressures they were similar to other days. I have not had any really high or low blood pressure readings. I am almost out of Labetalol and will need to last picker a refill today. documented in this encounter [facility] 10-05-2020 Note Patient Outreach (ILDA CASTRO) GUILLE MATOS ([id number]) 1990 F Date Time Provider Department 10/05/20 ELIZA GASTELUM During your visit today, we recorded the following information about you: Eliza Gastelum 10/05/2020 9:54 AM Signed POPULATION HEALTH NAVIGATION OUTREACH Action/FYI Scheduled outside [facility]. Contact made with patient or family member? yes Pt identified by name and : yes Outreach Outcome/Action Scheduled outside [facility], Reason for Outreach Care gap - annual visit Payer: Payor: [employer] / Plan: BLUE CARD PPO / Product Type: PPO / Care Gap Reviewed:: womans health - pap Reminder: Reminder note to check Health Maintenance for items below Health Maintenance items due: COVID-19 VACCINE(1) Never done HEPATITIS C SCREENING Never done HIV SCREENING Never done PAP TESTING due on 02/28/2020 DEPRESSION SCREENING due on 04/14/2020 Advanced Directives Completed: Have you ever planned for future healthcare decisions with a power of archives technician, living will, or advance directives? Referrals: Message Sent to Practice: Navigation Signature: Eliza Gastelum October 05, 2020 9:50 AM Allergies As of Date: 10/05/2020 Noted Allergy Reaction ERTHROMYCIN (ERYTHROMYCIN) 04/17/2019 11 - Vomiting OMNICEF (CEFDINIR) 04/17/2019 10 - Anaphylaxis Comments: Throat swelled PENICILLINS 04/17/2019 2 - Rash VALIUM (DIAZEPAM) 04/17/2019 1 - Mental Status Change Comments: Panic attack VICODIN (HYDROCODONE-ACETAMINOPHE*2019 1 - Mental Status Change Comments: Hallucinates Date Reviewed: 04/17/2019 [facility] - Fully Assessed Reason for Visit: Population Health Navigation Outreach [3910] Cmt: care gap - annual visit / womans health Prescriptions as of 10/05/2020 - metFORMIN (GLUCOPHAGE) 500 mg tablet Take 500 mg by mouth twice daily with meals. - Cetirizine (ZYRTEC) 10 mg cap Take by mouth once daily. Problem List As Of Date: 10/05/2020 (None) Encounter Status:Closed by ELIZA GASTELUM on 10/05/20 [facility] 10-05-2020 Note HNO ID: [id number] Author: Eliza Gastelum Service: ? Author Type: ? Type: Progress Notes Filed: 10/05/2020 9:54 AM Note Text: POPULATION HEALTH NAVIGATION OUTREACH Action/FYI Scheduled outside [facility]. Contact made with patient or family member? yes Pt identified by name and : yes Outreach Outcome/Action Scheduled outside [facility], Reason for Outreach Care gap - annual visit Payer: Payor: [employer]THEM / Plan: BLUE CARD PPO / Product Type: PPO / Care Gap Reviewed:: womans health - pap Reminder: Reminder note to check Health Maintenance for items below Health Maintenance items due: COVID-19 VACCINE(1) Never done HEPATITIS C SCREENING Never done HIV SCREENING Never done PAP TESTING due on 02/28/2020 DEPRESSION SCREENING due on 04/14/2020 Advanced Directives Completed: Have you ever planned for future healthcare decisions with a power of archives technician, living will, or advance directives? Referrals: Message Sent to Practice: Navigation Signature: Eliza Gastelum October 05, 2020 9:50 AM [facility] Diagnosis Hypertension, unspecified type [facility] Diagnosis Uses oral contraception- Primary Hypertension, unspecified type [facility] Diagnosis Abrasion of left cornea, initial encounter- Primary [facility] Diagnosis Urinary frequency- Primary [facility] Sus[facility]- Primary [facility] Diagnosis Hypertension, unspecified type [facility] Diagnosis Wellness examination- Primary Scalp cyst Sebaceous cyst Hypertension, unspecified type [facility] Diagnosis EIC (epidermal inclusion cyst)- Primary Sebaceous cyst Pilar cyst of scalp [facility] Diagnosis Pilar cyst of scalp- Primary Skin tenderness Disturbance of skin sensation [facility] Diagnosis Scar- Primary Scar condition and fibrosis of skin documented in this encounter [facility] Diagnosis Allergic dermatitis of upper and lower lids of both eyes - Primary Diagnosis Acute vaginitis - Primary Unspecified vaginitis and vulvovaginitis Diagnosis Sinusitis, unspecified chronicity, unspecified location- Primary Diagnosis S/P primary low transverse delivery, without mention of indication, unspecified as to episode of care Preeclampsia, third trimester Instructions * Patient Instructions - Samantha Watson, KRAIG - 09/17/2017 8:06 PM EDT Formatting of this note may be different from the original. Candidiasis: Care Instructions Your Care Instructions Candidiasis (say lqs-tok-UB-uh-jennifer ) is a yeast infection. Yeast normally lives in your body. But it can cause problems if your body's defenses don't work as they should. Some medicines can increase your chance of getting a yeast infection. These include antibiotics, steroids, and cancer drugs. And some diseases like AIDS and diabetes can make you more likely to get yeast infections. There are different types of yeast infections. Thrush is a yeast infection in the mouth. It usually occurs in people with weak immune systems. It causes white patches inside the mouth and throat. Yeast infections of the skin usually occur in skin folds where the skin stays moist. They cause red, oozing patches on your skin. Babies can get these infections under the diaper. People who often wear gloves can get them on their hands. Many women get vaginal yeast infections. They are most common when women take antibiotics. These infections can cause the vagina to itch and burn. They also cause white discharge that looks like cottage cheese. In rare cases, yeast infects the blood. This can cause serious disease. This kind of infection is treated with medicine given through a needle into a vein (IV). After you start treatment, a yeast infection usually goes away quickly. But if your immune system is weak, the infection may come back. Tell your doctor if you get yeast infections often. Follow-up care is a dinero part of your treatment and safety. Be sure to make and go to all appointments, and call your doctor if you are having problems. It's also a good idea to know your test resultsand keep a list of the medicines you take. How can you care for yourself at home? Take your medicines exactly as prescribed. Call your doctor if you think you are having a problem with your medicine. Use antibiotics only as directed by your doctor. Eat yogurt with live cultures. It has bacteria called lactobacillus. It may help prevent some typesof yeast infections. Keep your skin clean and dry. Put powder on moist places. If you are using a cream or suppository to treat a vaginal yeast infection, don't use condoms or a diaphragm. Use a different type of control. Eat a healthy diet and get regular exercise. This will help keep your immune system strong. When should you call for help? Watch closely for changes in your health, and be sure to contact your doctor if: ? You do not get better as expected. Where can you learn more? Log into your personal health record on https://[employer] and enter N733 in the Education box to learn more about Candidiasis: Care Instructions. Current as of: December 14, 2016 Content Version: .[id number] [employer]. Care instructions adapted under license by your healthcare professional. If you have questions about a medical condition or this instruction, always ask your healthcare professional. [employer] disclaims any warranty or liability for your use of this information. in this encounter* Patient Instructions* Sabino Gallardo, KRAIG - 01/13/2019 9:34 AM EST Plan: Zithromax antibiotic treatment. Make a appointment for a follow up evaluation with your primary care provider within 7 days if not 100% better by then; sooner if symptoms worsen, change, new symptoms develop or failure to improve. Sinusitis: Care Instructions Your Care Instructions Sinusitis is an infection of the lining of the sinus cavities in your head. Sinusitis often followsa cold. It causes pain and pressure in your head and face. In most cases, sinusitis gets better on its own in 1 to 2 weeks. But some mild symptoms may last for several weeks. Sometimes antibiotics are needed. Follow-up care is a dinero part of your treatment and safety. Be sure to make and go to all appointments, and call your doctor if you are having problems. It's also a good idea to know your test resultsand keep a list of the medicines you take. How can you care for yourself at home? Take an tigy-sob-pgvgvuf pain medicine, such as acetaminophen (Tylenol), ibuprofen (Advil, Motrin),or naproxen (Aleve). Read and follow all instructions on the label. If the doctor prescribed antibiotics, take them as directed. Do not stop taking them just because you feel better. You need to take the full course of antibiotics. Be careful when taking nhiq-hal-blqfynh cold or flu medicines and Tylenol at the same time. Many ofthese medicines have acetaminophen, which is Tylenol. Read the labels to make sure that you are nottaking more than the recommended dose. Too much acetaminophen (Tylenol) can be harmful. Breathe warm, moist air from a steamy shower, a hot bath, or a sink filled with hot water. Avoid cold, dry air. Using a humidifier in your home may help. Follow the directions for cleaning the machine. Use saline (saltwater) nasal washes to help keep your nasal passages open and wash out mucus and bacteria. You can buy saline nose drops at a grocery store or drugstore. Or you can make your own at home by adding 1 teaspoon of salt and 1 teaspoon of baking soda to 2 cups of distilled water. If you make your own, fill a bulb syringe with the solution, insert the tip into your nostril, and squeeze gently. Blow your nose. Put a hot, wet towel or a warm gel pack on your face 3 or 4 times a day for 5 to 10 minutes each time. Try a decongestant nasal spray like oxymetazoline (Afrin). Do not use it for more than 3 days in a row. Using it for more than 3 days can make your congestion worse. When should you call for help? Call your doctor now or seek immediate medical care if: You have new or worse swelling or redness in your face or around your eyes. You have a new or higher fever. Watch closely for changes in your health, and be sure to contact your doctor if: You have new or worse facial pain. The mucus from your nose becomes thicker (like pus) or has new blood in it. You are not getting better as expected. Where can you learn more? Log into your personal health record on https://[employer] and enter I933 in the Education box to learn more about Sinusitis: Care Instructions. Current as of: December 29, 2017 Content Version: 12.1 9588-9969 [employer]. Care instructions adapted under license by your healthcare professional. If you have questions about a medical condition or this instruction, always ask your healthcare professional. [employer] disclaims any warranty or liability for your use of this information. 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 Advance Directives and Living Will Latest Code Status on File Code Status Date Activated Date Inactivated Comments Full Code 01/17/2020 2:30 PM Full Code 01/17/2020 8:30 AM 01/17/2020 2:30 PM Full Code 01/14/2020 5:53 PM 01/17/2020 8:30 AM History of Present Illness * Sabino Gallardo CNP - 01/13/2019 9:24 AM EST PATIENT NAME: Guille Pandya Da [facility] [address] [place] [address], [address] [facility] [id number] : 1990 DATE OF VISIT: 01/13/2019 #: [id number] PROVIDER: Sabino Gallardo CNP Chief Complaint Patient presents with Sinus Problem found black mold under stove x 5 days ago, now has sinus pressure, sore throat, ear pain onset x over a week ago, worsening. SUBJECTIVE 28 y.o. female presents Sinus Problem (found black mold under stove x 5 days ago, now has sinus pressure, sore throat, ear pain onset x over a week ago, worsening. ) Sinus pain, pressure, drainage, ear pain, dry non productive cough. Onset nearly a week ago. Deniesany measured or suspected fever. Denies any recent travel, hospitalization or surgery. MEDICAL ISSUES Past Medical History: Diagnosis Date Allergy grass,ragweeds,dust mites,mold, dandilions There is no problem list on file for this patient. SOCIAL HISTORY Social History Socioeconomic History Marital status: Spouse name: Not on file Number of children: Not on file Years of education: Not on file Highest education level: Not on file Occupational History Not on file Social Needs Financial resource strain: Not on file Food insecurity: Worry: Not on file Inability: Not on file Transportation needs: Medical: Not on file Non-medical: Not on file Tobacco Use Smoking status: Never Smoker Smokeless tobacco: Never Used Substance and Sexual Activity Alcohol use: Yes Alcohol/week: 0.0 standard drinks Comment: socially Drug use: No Sexual activity: Not on file Lifestyle Physical activity: Days per week: Not on file Minutes per session: Not on file Stress: Not on file Relationships Social connections: Talks on phone: Not on file Gets together: Not on file Attends spiritism service: Not on file Active member of club or organization: Not on file Attends meetings of clubs or organizations: Not on file Relationship status: Not on file Other Topics Concern Not on file Social History Narrative Not on file FAMILY HISTORY Family History Problem Relation Age of Onset Cancer Paternal Grandfather Melanoma Rheum arthritis Maternal Aunt Rheum arthritis Paternal Grandmother REVIEW OF SYSTEMS Review of Systems Constitutional: Negative for activity change, appetite change, chills, diaphoresis, fatigue and fever. HENT: Positive for congestion, ear pain, sinus pressure, sinus pain and sore throat. Negative for dental problem, drooling, ear discharge, facial swelling, hearing loss, mouth sores, nosebleeds, postnasal drip, rhinorrhea, sneezing, tinnitus, trouble swallowing and voice change. Eyes: Negative for pain, discharge, redness and itching. Respiratory: Positive for cough. Negative for shortness of breath, wheezing and stridor. Cardiovascular: Negative for chest pain, palpitations and leg swelling. Gastrointestinal: Negative for abdominal distention, abdominal pain, constipation, diarrhea, nauseaand vomiting. Genitourinary: Negative for difficulty urinating, dysuria, frequency, hematuria and urgency. Musculoskeletal: Negative for back pain and neck pain. Skin: Negative for rash and wound. Neurological: Positive for headaches. Negative for dizziness, tremors and weakness. Hematological: Negative for adenopathy. Does not bruise/bleed easily. Psychiatric/Behavioral: Negative for confusion and decreased concentration. MEDICATIONS PRIOR TO VISIT Current Outpatient Medications on File Prior to Visit Medication Sig Dispense Refill ASCORBATE CALCIUM (VITAMIN C ORAL) Take by mouth daily. cetirizine (ZyrTEC) 10 MG tablet Take 10 mg by mouth daily . metFORMIN (GLUCOPHAGE) 500 MG tablet Take 500 mg by mouth 2 (two) times a day with meals . MULTIVITAMIN WITH MINERALS (HAIR,SKIN AND NAILS ORAL) Take 1 tablet by mouth daily. montelukast (SINGULAIR) 10 mg tablet MULTIVITS,CA,MINERALS/IRON/FA (ONE-A-DAY WOMENS FORMULA ORAL) Take 1 tablet by mouth daily. mupirocin (BACTROBAN) 2 % cream norethindrone-e.estradiol-iron (LO LOESTRIN FE) 1 mg-10 mcg (24)/10 mcg (2) Tab Take 1 tablet by mouth daily . nystatin (MYCOSTATIN) 100,000 unit/mL suspension Take 5 mL by mouth 4 (four) times a day. 0 No current facility-administered medications on file prior to visit. ALLERGIES/INTOLERANCES Allergies Allergen Reactions Cefdinir Anaphylaxis Stated throat swelling occured Valium [Diazepam] Anxiety Erythromycin Base Other (See Comments) vomiting Vicodin [Hydrocodone-Acetaminophen] Other (See Comments) Hallucinations Penicillin Rash OBJECTIVE BP 127/88 Pulse 88 Temp 98.4 F (36.9 C) (Oral) Resp 18 Ht 5' 3.5 Wt 99.3 kg (219 lb) SpO2 98% BMI 38.19 kg/m Physical Exam Constitutional: General: She is not in acute distress. Appearance: Normal appearance. She is well-developed. She is not ill-appearing, toxic-appearing or diaphoretic. HENT: Head: Normocephalic and atraumatic. Right Ear: Tympanic membrane, ear canal and external ear normal. Left Ear: Tympanic membrane, ear canal and external ear normal. Nose: No congestion or rhinorrhea. Right Sinus: Frontal sinus tenderness present. Left Sinus: Frontal sinus tenderness present. Mouth/Throat: Mouth: Mucous membranes are moist. Pharynx: No oropharyngeal exudate or posterior oropharyngeal erythema. Tonsils: No tonsillar exudate or tonsillar abscesses. Swellin+ on the right. 1+ on the left. Eyes: General: Right eye: No discharge. Left eye: No discharge. Conjunctiva/sclera: Conjunctivae normal. Neck: Musculoskeletal: Normal range of motion and neck supple. No neck rigidity or muscular tenderness. Cardiovascular: Rate and Rhythm: Normal rate and regular rhythm. Pulses: Normal pulses. Heart sounds: No murmur. Pulmonary: Effort: Pulmonary effort is normal. No respiratory distress. Breath sounds: Normal breath sounds. No stridor. No wheezing, rhonchi or rales. Abdominal: General: There is no distension. Musculoskeletal: Normal range of motion. Lymphadenopathy: Cervical: No cervical adenopathy. Skin: General: Skin is warm and dry. Capillary Refill: Capillary refill takes less than 2 seconds. Findings: No rash. Neurological: General: No focal deficit present. Mental Status: She is alert and oriented to person, place, and time. Motor: No weakness. Coordination: Coordination normal. Psychiatric: Behavior: Behavior normal. Thought Content: Thought content normal. Judgment: Judgment normal. PROCEDURE Procedures Results No results found for this or any previous visit (from the past 168 hour(s)). No orders to display ASSESSMENT/PLAN (expressed as patient instructions): 1. Sinusitis, unspecified chronicity, unspecified location azithromycin (Zithromax) 250 MG tablet DISCONTINUED: cefdinir (OMNICEF) 300 MG capsule No follow-ups on file. ADDITIONAL CLINICAL COMMENTS Flu Shot: Patient Declined See HPI. See Exam findings. Diagnosis Sinusitis . Differential considered included acute otitis media, otitis externa, viral URI, abscess, influenza, strep pharyngitis, pertussis, pneumonia . Plan: Zithromax antibiotic treatment. Make a appointment for a follow up evaluation with your primary care provider within 7 days if not 100% better by then; sooner if symptoms worsen, change, new symptoms develop or failure to improve. Prior to the conclusion of the encounter the nurse practitioner discussed with the patient the diagnosis, treatment plan, and follow up recommendation. Questions were answered until the patient expressed satisfaction that they had no further question, comment or concern. ORDERS PLACED THIS VISIT No orders of the defined types were placed in this encounter. MEDICATION LIST AT END OF VISIT Current Outpatient Medications Medication Sig Dispense Refill ASCORBATE CALCIUM (VITAMIN C ORAL) Take by mouth daily. cetirizine (ZyrTEC) 10 MG tablet Take 10 mg by mouth daily . metFORMIN (GLUCOPHAGE) 500 MG tablet Take 500 mg by mouth 2 (two) times a day with meals . MULTIVITAMIN WITH MINERALS (HAIR,SKIN AND NAILS ORAL) Take 1 tablet by mouth daily. azithromycin (Zithromax) 250 MG tablet Take 2 tablets (500 mg) on Day 1, followed by 1 tablet (250 mg) once daily on Days 2 through 5. . 6 tablet 0 montelukast (SINGULAIR) 10 mg tablet MULTIVITS,CA,MINERALS/IRON/FA (ONE-A-DAY WOMENS FORMULA ORAL) Take 1 tablet by mouth daily. mupirocin (BACTROBAN) 2 % cream norethindrone-e.estradiol-iron (LO LOESTRIN FE) 1 mg-10 mcg (24)/10 mcg (2) Tab Take 1 tablet by mouth daily . nystatin (MYCOSTATIN) 100,000 unit/mL suspension Take 5 mL by mouth 4 (four) times a day. 0 No current facility-administered medications for this visit. documented in this encounter* Katelin Travis, DO - 01/20/2020 6:10 AM EST POST OPERATIVE DAY # 3 Guille Matos is a 29 y.o. female This patient was seen & examined today. Her was complicated by: Patient Active Problem List Diagnosis Preeclampsia, third trimester S/P primary low transverse Today she is doing well without any chief complaint. Vital Signs: Vitals: 01/19/20 0808 01/19/20 1833 01/19/20 2107 01/20/20 0402 BP: 134/89 (!) 137/92 (!) 140/87 (!) 130/91 Pulse: 109 98 92 82 Resp: 18 18 20 18 Temp: 98.1 F (36.7 C) 98 F (36.7 C) 98.7 F (37.1 C) 98.2 F (36.8 C) TempSrc: Temporal Temporal Temporal Temporal SpO2: 100% 97% 98% 97% Weight: Height: Urine Input & Output last 24hrs: No intake or output data in the 24 hours ending 01/20/20 0611 Physical Exam: General: no apparent distress, alert and cooperative Affect: appropriate Lungs: No increased work of breathing, good air exchange Abdomen: abdomen soft, non-distended, non-tender Fundus: non-tender, normal size, firm, below umbilicus Incision: Clean, dry, and intact Extremities: no calf tenderness, non edematous Labs: Lab Results Component Value Date WBC 14.4 (H) 01/17/2020 HGB 10.4 (L) 01/18/2020 HCT 39.1 01/17/2020 MCV 81.2 01/17/2020 PLT 291 01/17/2020 A POS Antibody Screen: Antibody Screen Date Value Ref Range Status 01/17/2020 NEG NA Final No results found for: RUBELLAIGG LABOR DELIVERY ??? SCD's ONLY (labor through ambulation) SCD's PLUS Prophylactic Anticoagulation until discharge SCD's PLUS Prophylactic Anticoagulation for 6 weeks SCD's PLUS Therapeutic Anticoagulation for 6 weeks Vaginal Delivery [] BMI ? 40 kg/m2 Delivery All patients Vaginal Delivery [] BMI ? 40 kg/m2 AND [] Antepartum hospitalization ? 72 hours within the past month Delivery 1 Major Risk Factor: [] BMI ? 35 kg/m2 [] Low Risk Thrombophilia [] PPH+RBCs, IR, or operation [] Infection+Antibiotics [] Antepartum hospitalization ? 72 hours within the past month [] PMH: Sickle Cell, SLE, Cardiac Dz, Active IBD, Active Cancer, Nephrotic Syndrome OR 2 Minor Risk Factors: [] Multiple gestation [] Age > 40 [] PPH ? 1,000cc [] (+)FMH of VTE [] Smoker [] Preeclampsia [] BMI ? 40 kg/m2 AND [] Low Risk Thrombophilia OR ANY OF THE FOLLOWING: [] High Risk Thrombophilia without prior VTE [] Low Risk Thrombophilia with (+)FMH of VTE [] Any single prior VTE ANY OF THE FOLLOWING: [] Already on LMWH/UFH [] Multiple prior VTE [] High Risk Thrombophilia with prior VTE Low Risk Thrombophilia: FVL (heterozygous), Prothrombin (heterozygous), Protein C, Protein S High Risk Thrombophilia: FVL (homozygous), Prothrombin (homozygous), FVL+Prothrombin (heterozygous), Antithrombin III, APLS Assessment/Plan: 1. Guille Da is a POD # 3 s/p PLTCS 2/2 breech Care - Doing well, VSS - Female infant at [facility] - Contraception: Per private attending - Encourage ambulation and use of incentive spirometer - D/C enriquez catheter and saline lock IV on POD #1 - Postop Hb 10.4 - VTE Prophylaxis: Prophylactic Dosing until Discharge PreEwoSF - BP's persistently mild range - Asymptomatic - Started Labetalol 200mg TID yesterday GDMA1 - BGTs wnl yesterday, discontinue testing Disposition: Anticipate discharge today per private attending's discretion Based on my clinical assessment, this patient is safe for self discharge (does not need transport by wheelchair) if she so chooses. Provider's Name: MD Elisa Aldana DO 01/20/2020, 6:11 AM Attending Supervising Physician's Attestation Statement I performed a history and physical examination on the patient and discussed the management with theresident physician. I reviewed and agree with the findings and plan as documented in the note. Doing well POD#3. BP mild range on Labetalol. Continue 200 TID. Preeclampsia precautions reviewed. She declined LARC. She will FU with her OB in 1 week for incision check, BP check and depression screening. I spent 25 minutes in the visit, with more than 50% of the total [id number] time of the visit in counseling/coordination of care. * Harriett Soto RN - 01/19/2020 7:[address] Garcia notified about bp of 137/92 and states to order 200mg labetalol 3 times a day * Harriett Soto RN - 01/19/2020 6:15 PM EST Pt back to unit * Harriett Soto RN - 01/19/2020 1:30 PM EST Pt to kids to visit * Harriett Soto RN - 01/19/2020 11:[address] Garcia states blood sugars can be discontinued * Bakari Garcia DO - 01/19/2020 5:43 AM EST POST OPERATIVE DAY # 2 Guille Matos is a 29 y.o. female This patient was seen & examined today. Her was complicated by: Patient Active Problem List Diagnosis Preeclampsia, third trimester S/P primary low transverse Today she is doing well without any chief complaint. Vital Signs: Vitals: 01/18/20 0348 01/18/20 0830 01/18/20200701/18/20 2300 BP: (!) 131/92 (!) 130/90 (!) 148/95 (!) 135/94 Pulse: 86 92 98 Resp: Temp: 97.8 F (36.6 C) 97.9 F (36.6 C) 98.7 F (37.1 C) TempSrc: Temporal Temporal Temporal SpO2: 96% 99% 99% Weight: Height: Urine Input & Output last 24hrs: No intake or output data in the 24 hours ending 01/19/20 0543 Physical Exam: General: no apparent distress, alert and cooperative Affect: appropriate Lungs: No increased work of breathing, good air exchange Abdomen: abdomen soft, non-distended, non-tender Fundus: non-tender, normal size, firm, below umbilicus Incision: Clean, dry, and intact Extremities: no calf tenderness, non edematous Labs: Lab Results Component Value Date WBC 14.4 (H) 01/17/2020 HGB 10.4 (L) 01/18/2020 HCT 39.1 01/17/2020 MCV 81.2 01/17/2020 PLT 291 01/17/2020 A POS Antibody Screen: Antibody Screen Date Value Ref Range Status 01/17/2020 NEG NA Final No results found for: RUBELLAIGG LABOR DELIVERY ??? SCD's ONLY (labor through ambulation) SCD's PLUS Prophylactic Anticoagulation until discharge SCD's PLUS Prophylactic Anticoagulation for 6 weeks SCD's PLUS Therapeutic Anticoagulation for 6 weeks Vaginal Delivery [] BMI ? 40 kg/m2 Delivery All patients Vaginal Delivery [] BMI ? 40 kg/m2 AND [] Antepartum hospitalization ? 72 hours within the past month Delivery 1 Major Risk Factor: [] BMI ? 35 kg/m2 [] Low Risk Thrombophilia [] PPH+RBCs, IR, or operation [] Infection+Antibiotics [] Antepartum hospitalization ? 72 hours within the past month [] PMH: Sickle Cell, SLE, Cardiac Dz, Active IBD, Active Cancer, Nephrotic Syndrome OR 2 Minor Risk Factors: [] Multiple gestation [] Age > 40 [] PPH ? 1,000cc [] (+)FMH of VTE [] Smoker [] Preeclampsia [] BMI ? 40 kg/m2 AND [] Low Risk Thrombophilia OR ANY OF THE FOLLOWING: [] High Risk Thrombophilia without prior VTE [] Low Risk Thrombophilia with (+)FMH of VTE [] Any single prior VTE ANY OF THE FOLLOWING: [] Already on LMWH/UFH [] Multiple prior VTE [] High Risk Thrombophilia with prior VTE Low Risk Thrombophilia: FVL (heterozygous), Prothrombin (heterozygous), Protein C, Protein S High Risk Thrombophilia: FVL (homozygous), Prothrombin (homozygous), FVL+Prothrombin (heterozygous), Antithrombin III, APLS Assessment/Plan: 1. Guille Da is a POD # 2 s/p PLTCS 2/2 breech Care - Doing well, VSS - Female infant at [facility] - Contraception: Per private attending - Encourage ambulation and use of incentive spirometer - D/C enriquez catheter and saline lock IV on POD #1 - Postop Hb 10.4 - VTE Prophylaxis: Prophylactic Dosing until Discharge PreEwoSF - BP normotensive to mild range - Asymptomatic GDMA1 - BGTs continued to be wnl yesterday - Continue monitoring Disposition: Continue current care Based on my clinical assessment, this patient is safe for self discharge (does not need transport by wheelchair) if she so chooses. Provider's Name: MD Elisa Aldana DO 01/19/2020, 5:43 AM ATTENDING NOTE: I personally saw and evaluated the patient. I reviewed the care provided by the resident including the patient's medical history, physical exam findings, diagnosis and treatment plan. I also agree with the resident's documentation unless otherwise indicated: ? Doing well. Continue current mgmt. --- Total time spent with the patient was 15 minutes, of which greater than 50% of the time was spent counseling and coordinating care. * Katelin Travis DO - 01/18/2020 6:16 AM EST POST DAY # 1 Guille Matos is a 29 y.o. female This patient was seen & examined today. Her was complicated by: Patient Active Problem List Diagnosis Preeclampsia, third trimester S/P primary low transverse Today she is doing well without any chief complaint. Her lochia is light. She denies chest pain, shortness of breath, headache and blurred vision. She is ambulating well. Flatus absent. Bowel movement absent. Voiding without difficulty yes. She is tolerating solids. Pain is controlled yes. Vital Signs: Vitals: 01/17/20 1741 01/17/20200501/17/20 2328 01/18/20 0348 BP: 127/83 124/85 123/77 (!) 131/92 Pulse: 111 96 104 86 Resp: Temp: 98.7 F (37.1 C) 98.4 F (36.9 C) 98.5 F (36.9 C) 97.8 F (36.6 C) TempSrc: Temporal Temporal Temporal Temporal SpO2: 95% 95% 95% 96% Weight: Height: Urine Input & Output last 24hrs: Intake/Output Summary (Last 24 hours) at 01/18/2020 0616 Last data filed at 01/18/2020 0440 Gross per 24 hour Intake 300 ml Output 4630 ml Net -4330 ml Physical Exam: General: no apparent distress, alert and cooperative Affect: appropriate Lungs: No increased work of breathing, good air exchange, clear to auscultation bilaterally, no crackles or wheezing Heart: regular rate and rhythm Abdomen: abdomen soft, non-distended, non-tender Fundus: non-tender, normal size, firm, below umbilicus Incision: clean, dry and intact, dressing in place Extremities: no calf tenderness, non edematous Labs: Lab Results Component Value Date WBC 14.4 (H) 01/17/2020 HGB 13.0 01/17/2020 HCT 39.1 01/17/2020 MCV 81.2 01/17/2020 PLT 291 01/17/2020 A POS Antibody Screen: Antibody Screen Date Value Ref Range Status 01/17/2020 NEG NA Final No results found for: RUBELLAIGG LABOR DELIVERY ??? SCD's ONLY (labor through ambulation) SCD's PLUS Prophylactic Anticoagulation until discharge SCD's PLUS Prophylactic Anticoagulation for 6 weeks SCD's PLUS Therapeutic Anticoagulation for 6 weeks Vaginal Delivery [] BMI ? 40 kg/m2 Delivery All patients Vaginal Delivery [] BMI ? 40 kg/m2 AND [] Antepartum hospitalization ? 72 hours within the past month Delivery 1 Major Risk Factor: [] BMI ? 35 kg/m2 [] Low Risk Thrombophilia [] PPH+RBCs, IR, or operation [] Infection+Antibiotics [] Antepartum hospitalization ? 72 hours within the past month [] PMH: Sickle Cell, SLE, Cardiac Dz, Active IBD, Active Cancer, Nephrotic Syndrome OR 2 Minor Risk Factors: [] Multiple gestation [] Age > 40 [] PPH ? 1,000cc [] (+)FMH of VTE [] Smoker [] Preeclampsia [] BMI ? 40 kg/m2 AND [] Low Risk Thrombophilia OR ANY OF THE FOLLOWING: [] High Risk Thrombophilia without prior VTE [] Low Risk Thrombophilia with (+)FMH of VTE [] Any single prior VTE ANY OF THE FOLLOWING: [] Already on LMWH/UFH [] Multiple prior VTE [] High Risk Thrombophilia with prior VTE Low Risk Thrombophilia: FVL (heterozygous), Prothrombin (heterozygous), Protein C, Protein S High Risk Thrombophilia: FVL (homozygous), Prothrombin (homozygous), FVL+Prothrombin (heterozygous), Antithrombin III, APLS Assessment/Plan: 1. Guille Matos is a POD # 1 s/p PLTCS 2/2 Breech - Doing well, VSS - female infant - Encourage ambulation and use of incentive spirometer - D/C enriquez catheter and saline lock IV on POD #1 - Postop Hb Pending due to difficult blood draw 2. Contraception:per private attending 3. VTE Prophylaxis: Prophylactic Dosing until Discharge 4. Continue current care PreEwoSF - BP mild range to normotensive - PreE labs negative - asymptomatic GDMA1 - BGTs remain well controlled yesterday - continue fasting and 1 hr PP monitoring - BG stable Provider's Name: MD Neymar Aldana, DO 01/18/2020, 6:16 AM Attending Supervising Physician's Attestation Statement I performed a history and physical examination on the patient and discussed the management with theresident physician. I reviewed and agree with the findings and plan as documented in the note. Pt meeting postoperative milestones. Pain controlled. [facility], concern for CHD. [facility]. Preeclampsia precautions reviewed I spent 15 minutes in the visit, with more than 50% of the total [id number] time of the visit in counseling/coordination of care. * Margaux Hidalgo IBCLC - 01/17/2020 4:45 PM EST Pt pumping with hospital ameda pump upon entering the room. This is the patient's first baby. Baby was born at 37 weeks and at [facility] N[facility]. Pt is pumping at 57 suction and denies pain. Discussedpump settings and enc to lower, especially if any discomfort, redness or tissue damage. Reviewed and shown pump cleaning. Pt doesn't have a pump for home use , but did some research on medela pumps. Discussed how to obtain pump through insurance, pt calling [facility] tomorrow. Discussed kevin collection, labeling and transport to nicu. Pt is concerned she is not pumping any milk yet, discussed colostrum and normal volumes and variations the first day and beyond. Denies further questions or needs. Informed of support and how to contact. Verbalizes understanding. Juana Prather RD, ANGUS - 01/17/2020 3:47 PM EST Comprehensive Nutrition Assessment Type and Reason for Visit: Initial(dietary aide cook referral for HTN) Nutrition Assessment: pt admitted for prepreeclampsia in the third trimester, pt is at 37w0d, pt underwent this morning, per MD pt is currently ordered a General Diet, if sodium restriction is desired in diet order to promote blood pressure control that can be added, will assign patient to a Level 1 and refer back to the dietary aide cook for continued monitoring during admit, dietitianis available as needed per re-consult Current Nutrition Therapies: DIET GENERAL; Nutrition Interventions: Food and/or Nutrient Delivery: Continue Current Diet Coordination of Nutrition Care: Continue to monitor while inpatient(sign off to dietary aide cook) Contact: pager x [phone] * Joce Adler DO - 01/17/2020 7:47 AM EST BSUS performed this AM. Fetus still breech, maternal R with anterior placenta. * Mary Loredo DO - 01/17/2020 6:31 AM EST Maternal Medicine Service Resident Progress Note 01/17/2020 6:31 AM 01/14/2020 Hospital Day: 4 Guille Da, 29 y.o. 37w0d Patient has been seen and examined. No new complaints this AM. Positive movement Negative vaginal bleeding Negative LOF Negative Contractions Vitals: 01/16/20 2040 01/16/20 2045 01/16/20 2354 01/17/20 0320 BP: (!) 144/95 (!) 146/98 Pulse: 100 100 105 97 Resp: 18 22 Temp: 99.4 F (37.4 C) 98.1 F (36.7 C) TempSrc: Temporal Temporal SpO2: 95% 97% Weight: 238 lb 6.4 oz (108.1 kg) Height: FHT: 120 and 150, moderate variability Accels: present Decels: rare late decel Contractions: none Physical Exam: Gen: NAD HEENT: Normocephalic, Atraumatic, EOMI, MMM Resp: CTABL, no WRR Card: RRR S1S2 Abd: soft, gravid, NTND, no rebound, no guarding. negative fundal tenderness Ext: No LE edema, no calf tenderness or swelling Medications: Current Facility-Administered Medications Medication Dose Route Frequency Provider Last Rate Last Dose lactated ringers infusion Intravenous Continuous Bere Palmer DO 100 mL/hr at 01/16/202357 cetirizine (ZYRTEC) tablet 10 mg 10 mg Oral Daily Joce Adler DO 10 mg at 01/16/202055 sodium chloride flush 0.9 % injection 10 mL 10 mL Intravenous 2 times per day Karlos Varela MD 10 mL at 01/16/202056 sodium chloride flush 0.9 % injection 10 mL 10 mL Intravenous PRN Karlos Varela MD 10 mL at 01/16/201722 acetaminophen (TYLENOL) tablet 650 mg 650 mg Oral Q4H PRN Karlos Varela MD Or acetaminophen (TYLENOL) suppository 650 mg 650 mg Rectal Q4H PRN Karlos Varela MD docusate sodium (COLACE) capsule 100 mg 100 mg Oral BID Karlos Varela MD 100 mg at 01/16/202055 promethazine (PHENERGAN) tablet 12.5 mg 12.5 mg Oral Q6H PRN Karlos Varela MD Or ondansetron (ZOFRAN) injection 4 mg 4 mg Intravenous Q6H PRN Karlos Varela MD vitamin 27-1 MG tablet 1 tablet 1 tablet Oral Daily Karlos Varela MD 1 tablet at 01/15/20 0815 Assessment/Plan: Guille Matos is a 29 y.o. 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 Mary Loredo DO 01/17/2020, 6:31 AM Associated attestation - Siri Molina MD - 01/17/2020 4:51 PM EST MFM Patient having a today, see operative report Siri Eduardo Weeksan * Lyudmila May DTR - 01/16/2020 1:47 PM EST Nutrition rescreen completed. Patient referred to the Dietitian. * Neymar Justin DO - 01/16/2020 5:40 AM EST Maternal Medicine Service Resident Progress Note 01/16/2020 5:41 AM 01/14/2020 Hospital Day: 3 Guille Da, 29 y.o. 36w6d Patient has been seen and examined. Pt has no complaints . Positive movement Negative vaginal bleeding Negative LOF Negative Contractions Vitals: 01/14/20 2045 01/15/20 2030 01/15/20 2312 01/16/20 0326 BP: (!) 146/92 (!) 147/93 (!) 144/88 Pulse: 92 92 93 102 Resp: 16 16 Temp: 98 F (36.7 C) 98.1 F (36.7 C) 98.5 F (36.9 C) TempSrc: Oral Oral Temporal SpO2: 99% 97% Weight: Height: FHT: 120, moderate variability Accels: present Decels: absent Contractions: none Physical Exam: Gen: NAD HEENT: Normocephalic, Atraumatic, EOMI, MMM Resp: CTABL, no WRR Card: RRR S1S2 Abd: soft, gravid, NTND, no rebound, no guarding. negative fundal tenderness Ext: No LE edema, no calf tenderness or swelling Medications: Current Facility-Administered Medications Medication Dose Route Frequency Provider Last Rate Last Dose betamethasone acetate-betamethasone sodium phosphate (CELESTONE) injection 12 mg 12 mg Intramuscular Q24H Bere Palmer, DO 12 mg at 01/15/20 1800 [START ON 01/17/2020] lactated ringers infusion Intravenous Continuous Bere Palmer DO cetirizine (ZYRTEC) tablet 10 mg 10 mg Oral Daily Joce Adler DO 10 mg at 01/15/20 2310 sodium chloride flush 0.9 % injection 10 mL 10 mL Intravenous 2 times per day Karlos Varela MD 10 mL at 01/15/20 2030 sodium chloride flush 0.9 % injection 10 mL 10 mL Intravenous PRN Karlos Varela MD 10 mL at 01/15/20 1647 acetaminophen (TYLENOL) tablet 650 mg 650 mg Oral Q4H PRN Karlos Varela MD Or acetaminophen (TYLENOL) suppository 650 mg 650 mg Rectal Q4H PRN Karlos Varela MD docusate sodium (COLACE) capsule 100 mg 100 mg Oral BID Karlos Varela MD 100 mg at 01/15/20 0816 promethazine (PHENERGAN) tablet 12.5 mg 12.5 mg Oral Q6H PRN Karlos Varela MD Or ondansetron (ZOFRAN) injection 4 mg 4 mg Intravenous Q6H PRN Karlos Varela MD vitamin 27-1 MG tablet 1 tablet 1 tablet Oral Daily Karlos Varela MD 1 tablet at 01/15/20 0815 Assessment/Plan: Guille Matos is a 29 y.o. female 36w6d PreEwoSF - BP normotensive to mild range - asymptomatic - PreE labs negative, elevated UPC 5.5 - if has another severe range BP will be delivered, otherwise plan for delivery 01/16 GDMA1 - Diet controlled - BGTs controlled overnight - Continue to monitor BGTs fasting and 1hr PP Anomalies - Bilateral cleft lip and palate - Mild aortic isthmus hypoplasia - cfDNA low risk - Has treatment plan Malpresentation - through shared decision making patient opts for PCD for breech IUP @ 36w6d - Dating by \ US - Breech on 01/13 - Monitoring:NST bid - Diet: CLD - BMZ deferred Further plan pending d/w attending. Neymar Justin DO 01/16/2020, 5:41 AM Associated attestation - Siri Molina MD - 01/16/2020 8:42 PM EST MFM I performed a history and physical examination on the patient and discussed the management with theresident physician. I reviewed and agree with the findings and plan as documented in their note today. 29 yr old at 36 6/7 GA with the following: Pre-eclampsia without SF, significant proteinuria no headache currently and stable. 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 She understands that she may need delivery sooner if concerns for SF. Recommend SCD given VTE risk while inpatient. I also let Dr. Castanon know of the plan as requested bythe patient I spent 15 minutes in the visit today on the floor reviewing the chart, discussing the case with the residency staff and nursing Siri Molina MD * Bere Palmer, DO - 01/15/2020 5:48 AM EST Maternal Medicine Service Resident Progress Note 01/15/2020 5:48 AM 01/14/2020 Hospital Day: 2 Guille Da, 29 y.o. 36w5d Patient has been seen and examined. Pt states she had a headache overnight but it went away after sleeping. States her hands are definitely much more swollen today as well. Otherwise, patient denies CP, VC, SOB, RUQ pain, and CP. Positive movement Negative vaginal bleeding Negative LOF Negative Contractions Vitals: 01/14/20203901/14/20204201/14/20204301/14/202044 BP: (!) 140/84 Pulse: 87 88 95 92 Resp: Temp: 97.9 F (36.6 C) TempSrc: Oral SpO2: Weight: Height: FHT: 140, moderate variability Accels: present Decels: absent Contractions: none Physical Exam: Gen: NAD HEENT: Normocephalic, Atraumatic, EOMI, MMM Resp: CTABL, no WRR Card: RRR S1S2 Abd: soft, gravid, NTND, no rebound, no guarding. negative fundal tenderness Ext: No LE edema, no calf tenderness or swelling Medications: Current Facility-Administered Medications Medication Dose Route Frequency Provider Last Rate Last Dose lactated ringers infusion Intravenous Continuous Karlos Varela MD 125 mL/hr at 01/14/20 1820 125mL/hr at 01/14/20 182 sodium chloride flush 0.9 % injection 10 mL 10 mL Intravenous 2 times per day Karlos Varela MD sodium chloride flush 0.9 % injection 10 mL 10 mL Intravenous PRN Karlos Varela MD acetaminophen (TYLENOL) tablet 650 mg 650 mg Oral Q4H PRN Karlos Varela MD Or acetaminophen (TYLENOL) suppository 650 mg 650 mg Rectal Q4H PRN Karlos Varela MD docusate sodium (COLACE) capsule 100 mg 100 mg Oral BID Karlos Varela MD promethazine (PHENERGAN) tablet 12.5 mg 12.5 mg Oral Q6H PRN Karlos Varela MD Or ondansetron (ZOFRAN) injection 4 mg 4 mg Intravenous Q6H PRN Karlos Varela MD vitamin 27-1 MG tablet 1 tablet 1 tablet Oral Daily Karlos Varela MD Assessment/Plan: Guille Matos is a 29 y.o. female 36w5d PreEwoSF - Severe range BP in office yesterday and Bps 150s/90s in triage yesterday - PreE labs negative but new onset proteinuria with UPC 5.5 - Mild headache overnight that resolved with sleep - Will repeat CBC and CMP this AM - Continue to monitor Bps, will be delivered at 37w on Saturday or sooner if has another severe rangeBP GDMA1 - Diet controlled - BGTs controlled overnight - Continue to monitor BGTs fasting and 1hr PP Anomalies - Bilateral cleft lip and palate - Mild aortic isthmus hypoplasia - cfDNA low risk - Has treatment plan Malpresentation - Breech on BSUS on admission - Patient desires ECV - Discussed that if Bps are severe range and difficult to control, indication would be for immediate delivery and ECV would not be an option - Continue CLD given concern for possible PCD IUP @ 36w5d - Dating by \ US - Breech on 01/13 - Monitoring:CEFM - Diet: CLD - BMZ deferred Further plan pending d/w attending. Bere Pandeyclaire, DO 01/15/2020, 5:48 AM Associated attestation - Siri Molina MD - 01/15/2020 4:20 PM EST MFM I performed a history and physical examination on the patient and discussed the management with theresident physician. I reviewed and agree with the findings and plan as documented in their note today. 29 yr old at 36 5/7 GA with the following: Pre-eclampsia without SF, significant proteinuria no headache currently and stable. 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 I talked with them given her stability and her current GA that steroids would be indicated especially with concerns of transverse aortic arch hypoplasia and congenital heart disease for the fetus. We talked about ECV (external cephalic version) in lay terms and the risks, benefits and alternatives of this potential procedure. We talked about it not being successful and the subsequent plan fora scheduled if unsuccessful ECV, but we also talked about the potential of an emergent proc edure as well that could require her to have a GETA and this could also be an issue for the fetus if she has bradycardia and an emergent procedure in the face of IUGR and anomalies. She and charly were both at the bedside and do not wish to take any chance that this baby will have any concerns from mode of delivery. They also do not desire an long induction, and we talked about no guarantee with a vaginal even with a successful ECV. This shared decision making with the couple led them to decide that a scheduled would be their best decision for her delivery. She also has felt better since speaking with anesthesia. We talked about a and the risks of this as well today and I communicated the process for the delivery on Saturday. I reviewed the risks of including but not limited to bleeding, infection, risk of injury to surrounding structures including bowel, bladder, baby and uterus. We also talked about anesthesia risk and risk of hemorrhage requiring a transfusion and hysterectomy, although low risk. She is aware of need for NICU to be present and given the bilateral cleft and current EFW the will go to the NICU for observation/admission after delivery. They have met with plastics and have all the feeding supplies (special bottles) but would like to meet with prior to the delivery if possible. The couple was visibly stressed with my conversation and we just feel like its something all the time and a bit overwhelmed, especially Dad who was visibly tearing up with our conversation. I was able to speak with her by herself in the ultrasound unit and she confirmed he is especially stressed with everything related tothis . I offered Health And Safety Technician services and they declined today and will continue to provide asmuch support throughout the antepartum course as possible Continued IP management until planned scheduled primary on Saturday01/17/20 planned for timeof 10am, NICU is aware. She understands that she may need delivery sooner if concerns for SF. Recommend SCD given VTE risk while inpatient. I also let Dr. Castanon know of the plan as requested bythe patient I spent 40 minutes in the visit today on the floor reviewing the chart, discussing the case with the residency staff and nursing Siri Molina MD * Karlos Varela MD - 01/14/2020 4:22 PM EST Department of Obstetrics and Gynecology Labor and Delivery Triage Note CHIEF COMPLAINT: Elevated BP HISTORY OF PRESENT ILLNESS: The patient is a 29 y.o. 36w4d. OB History 1 Para Term AB Living SAB TAB Ectopic Molar Multiple Live Births Patient presents with a chief complaint as above. Pt sent from the [facility] office for severe range BP'stoday and 3+ protein in her urine. Pt states she had a mild CAPPS yesterday that resolved on its own. Denies any CP, SOB, RUQ pain or vision changes. Denies DFM/VB/LOF/CTX Estimated Due Date: Estimated Date of Delivery: 02/07/20 PAST MEDICAL HISTORY: Past Medical History: Diagnosis Date Anxiety Mental disorder Obesity PCOS (polycystic ovarian syndrome) PAST SURGICAL HISTORY: History reviewed. No pertinent surgical history. SOCIAL HISTORY: reports that she has never smoked. She has never used smokeless tobacco. She reports previous alcohol use. She reports that she does not use drugs. MEDICATIONS: Prior to Admission medications Medication Sig Start Date End Date Taking? Authorizing Provider cetirizine (ZYRTEC) 10 MG tablet Take 10 mg by mouth daily Yes Historical Provider, VIT-FE FUMARATE-FA PO Take by mouth Yes Historical Provider, CARE: Complicated by: IUGR, hypoplastic left heart, cleft lip and palate, breech presentation REVIEW OF SYSTEMS: Pertinent items are noted in HPI. APPEARANCE: Pain: no PHYSICAL EXAM: Vital Signs: Elevated BPs/Respirations normal effort There were no vitals filed for this visit. Abdomen: soft, NT, ND, no rebound/guarding Uterus: gravid/non-tender LE Edema: trace Speculum Exam: defer heart rate: Category I Cervix: defer Contraction frequency: none Membranes: Intact RESULTS: NST: Reactive GENERAL LABS: Recent Results (from the past 24 hour(s)) CBC Collection Time: 01/14/20 4:28 PM Result Value Ref Range WBC 19.8 (H) 3.6 - 10.7 10*3/uL RBC 4.84 3.80 - 5.20 10*6/uL Hemoglobin 12.9 11.7 - 16.0 g/dL Hematocrit 39.2 35.0 - 47.0 % MCV 80.9 79.0 - 98.0 fL MCH 26.7 26.0 - 34.0 pg MCHC 33.0 32.0 - 36.0 % RDW 13.6 11.5 - 14.5 % Platelets 214 140 - 440 10*3/uL MPV 9.6 7.4 - 10.4 fL COMPREHENSIVE METABOLIC PANEL Collection Time: 01/14/20 4:28 PM Result Value Ref Range Sodium 136 135 - 145 mmol/L Potassium 4.3 3.5 - 5.1 mmol/L Chloride 109 (H) 98 - 107 mmol/L CO2 18 (L) 22 - 30 mmol/L Anion Gap 9 NA Glucose 75 70 - 100 mg/dL BUN 11 7 - 20 mg/dL CREATININE 0.64 0.52 - 1.25 mg/dL eGFR >90.0 >60 mL/min EGFR IF NonAfrican Ukrainian >90.0 >60 mL/min Calcium 8.7 8.4 - 10.4 mg/dL Albumin,Serum 3.5 3.5 - 5.0 g/dL Total Protein 6.7 6.3 - 8.2 g/dL Total Bilirubin 0.4 0.2 - 1.3 mg/dL Alkaline Phosphatase 185 (H) 38 - 126 U/L ALT 11 0 - 34 U/L AST 26 15 - 46 U/L PROTEIN, URINE Collection Time: 01/14/20 4:28 PM Result Value Ref Range Total Protein, Urine 300 (A) Negative mg/dL Creatinine, Random Urine Collection Time: 01/14/20 4:28 PM Result Value Ref Range CREATININE, RANDOM URINE 54.0 No Range mg/dL TRIAGE COURSE: -BP's persistently mild range since arrival to triage after having severe range in office, asymptomatic -PreE labs pending PreE labs neg. UPC 5.56. Bps 150s systolic. Now having mild headache. Will admit to L&D for observation. Giving tylenol, reglan for headache and will continue to assesss. Baby is Breech. IMPRESSION: Preeclampsia-without severe features DISCUSSED WITH PNC PROVIDER: Dr. Rodas DISPOSITION: Admit to PNU Associated attestation - Lonnie Braun III, MD - 01/14/2020 6:23 PM EST I reviewed and agree with the care provided by the resident/CNM during the visit including the patient's medical history, the resident's findings in the physical exam, patient's diagnosis and treatment plan. documented in this encounter Hospital Course Note Department of Obstetrics and Gynecology Delivery Discharge Summary Admission on 01/14/2020 3:13 PM Reason for admission: PreEwoSF, breech, anomalies Antepartum Course: pt was monitored closely. BP was in normotensive to mild preE range. She was asymptomatic for preE. PreE labs negative. PCR 5.5. She continued to have hypertension in the period and Labetalol was started. Surgical Operations & Procedures: Date of delivery: 01/17/2020 Procedure: without labor Anesthesia: Spinal anesthesia Laceration(s): n/a Delivery Complications: none EBL: 600 cc Pertinent Findings & Procedures: Information for the patient's : Edouard Matos [[id number]] female Weight: 4 lb 3 oz (1.9 kg) Apgars: Information for the patient's : Edouard Matos [[id number]] One Minute : 8 Five Minute : 9 Course: Uncomplicated Infant: Live female infant, at [facility] NICU Blood Type/Rh: A POS Antibody Screen: Antibody Screen Date Value Ref Range S (more content not included)... Discharge Instructions * Instructions* Bakari Garcia, - 01/19/2020 After Your Delivery (the Period): Your Care Instructions Congratulations on the of your baby. Like , the period can be a time of excitement, pamela, and exhaustion. You may look at your wondrous little baby and feel happy. You may also be overwhelmed by your new sleep hours and new responsibilities. In these first weeks after delivery, try to take good care of yourself. It may take 4 to 6 weeks to feel like yourself again, and possibly longer if you had a . You will likely feel very tired for several weeks. Your dayswill be full of ups and downs, but lots of pamela as well. FOLLOW-UP: Your follow-up care is a dinero part of your treatment and safety. Follow-up with your OB doctor in 4-6 weeks or as specified by your physician. Be sure to make and go to all appointments, and call yourdoctor if you are having problems. It's also a good idea to know your test results and keep a list of the medicines you take. BLEEDING ? Vaginal bleeding will decrease in amount over the next few weeks but be present for as long as 8 weeks after delivery. Bleeding may last picker and then decrease again around 7-10 days . ? Use pads instead of tampons for the bloody flow that may last as long as 2 weeks. ? You will notice that as your activity increases, your flow may increase. ? Call your doctor if you are saturating one maxi pad in an hour & passing large clots for 3 hours or more. ACTIVITY ? NO SEXUAL activity for 6 weeks or until advised by your doctor. ? Nothing in the vagina for 6 weeks: e.g.) intercourse, tampons, or douching. ? Showering is okay; NO tub baths, swimming, or hot tubs for 6 weeks. ? Gradually increase your activity. Resume exercise regimen only after advice by your doctor. ? Avoid lifting anything heavier than your baby or a gallon of milk for six weeks. ? Avoid driving 1 week for vaginal delivery and 2 weeks for section, or longer if you are on prescription pain medicine unless otherwise instructed by your doctor. ? Rise slowly from a lying to sitting and then a standing position. ? Climb stairs carefully. Use caution when carrying your baby up and down the stairs. ? You may feel tired or have a lack of energy. Nap when baby naps to catch up on sleep. ? You may continue your vitamin to replenish nutrients post delivery. EMOTIONS You may feel gracia, sad, teary, & overwhelmed for the first 2 weeks ; however, feelings of post depression may occur any time within the first year after delivery. Contact your OB provider if you feel you may be showing signs of depression, or have thoughts of harming yourself or your infant. If will not stop crying, contact another adult for help or place infant in their crib on their back and take a break. NEVER shake your . WOUND CARE For Vaginal Delivery: ? Shower daily, and cleanse your perineum (bottom) with mild soap from front to Back. Use the plastic squirt bottle until bleeding stops each time you use the restroom instead of wiping with toilet paper. ? Ease soreness of hemorrhoids and the area between your vagina and rectum with ice compresses or witch suzan pads. ? If used, stitches will dissolve in 4-6 weeks on their own. You may use a sitz bath or soak in a clean tub with drain open and water running for comfort. ? Kegel exercises will help restore bladder control. To do these tighten your muscles as if you were stopping your urine flow. Hold for a few seconds and then relax. Do these throughout the day. For Section Delivery: ? Keep your incision clean and dry. If you had steri-strips you may remove these once they start peeling off. If you have erick they need to be removed 3-10 days after delivery. If you have steri-strips, remove after 10-14 days. ? Do not wear clothing that irritates the incision line. If your incision in in a crease that is not dry, use a hair-dryer to dry the area 3 times a day. ? If you develop fever, shaking chills, redness, swelling, drainage or discharge from your wound, or if your wound looks like it's coming apart call your doctor immediately. For Tubal Ligation: ? Remove dressing 3 days after being discharged from the hospital. ? If you develop fever, shaking chills, redness, swelling, drainage or discharge from your wound, or if your wound looks like it's coming apart call your doctor immediately. BREAST CARE If you develop a warm, red, tender area on your breast or develop a fever contact your doctor. For moms: ? If you become engorged, feeding may be more difficult or painful for 1-2 days. ? You may find it helpful to hand express some milk so that the infant can latch on more easily or ease soreness with wet, warm washcloths. ? While , continue to take your vitamins as directed by your doctor. For non- moms: ? You may apply ice packs to your breasts over you bra for twenty minutes at a time for comfort. ? Cabbage leaves may be applied to breasts, replace when wilted. ? Avoid stimulation to your breasts, when showering allow the water to strike your back not your breasts. ? Do not express milk or your body will make more. ? Wear a good fitting bra until your milk dries, such as a sports bra. DIET & CONSTIPATION ? Eat a well balanced diet focusing on foods high in fiber and protein such as: whole grain cerealsand breads, fruits and vegetables and legumes (eg, beans, lentils) ? Drink 8-10 glasses of fluids daily, especially water. ? To avoid constipation you may take a mild rrwj-mex-gaibvgu stool softener (such as colace) as recommended by your doctor. SWELLING ? Try to keep your legs elevated when you are sitting or lying down. ? Stay hydrated and take walks. BABY ? Babies sleep safest on their back in a crib without bumpers, blankets or stuffed animals. ? DO NOT sleep with your baby in your bed or the couch. ? DO NOT expose baby to smoke, this can increase risks of asthma and sudden syndrome. If you or someone around baby smokes have them change their shirt and wash any facial hair before holding baby. Do not smoke inside the house and change the ventilation filters in the house before bringing baby home. WHEN TO CALL THE DOCTOR Signs of infection, including fever (101oF) and chills. Increased bleeding: soaking more than one sanitary pad an hour. Wounds that become red, swollen or drain pus. Vaginal discharge that smells foul. Headaches that lasts several hours and will not go away even with headache medications. Visual changes that last several hours and will not go away. Significant pain immediately below your rib cage. New pain, swelling, or tenderness in your legs Pain that you can't control with the medications you've been given. Pain, burning, urgency or frequency of urination, or persistent bleeding in the urine. Cough, shortness of breath, or chest pain. Depression, suicidal thoughts, or feelings of harming your baby. Breasts that are hot, red and accompanied by fever. Any cracking or bleeding from the nipple or areola (the dark-colored area of the breast). In case of an emergency, call 911 immediately. If you are Covid-19 positive or a Person Under Investigation (PUI) [id number]-hg-[id number] transmission of COVID-19 during is unlikely, but after a baby is susceptible to duossx-xs-cajyar spread. ? After your baby is born, your health care provider may recommend you not hold your baby and/or that you stay in a separate room from your baby until you get better. ? If you and your baby are not , wear a facemask at all times and wash your hands thoroughly before touching, holding or feeding your baby. Baby Care & Feeding ? has many benefits for you and your baby and is the best food for your baby. From what experts know so far, COVID-19 has not been found in breastmilk. ? Having a healthy adult who can assist with baby care until you get better is important, you may want to have a healthy adult feed your baby your expressed breast milk or formula if you chose to notbreastfeed. ? You may use a breast pump to express your breast milk. Wear a face mask, wash your breasts, then wash your hands thoroughly before touching the breast pump and bottle parts. Clean all pump parts after each use. ? If you choose to breastfeed from your breast, wear a face mask, wash your breasts, wash your hands thoroughly before feeding your baby. These could be signs that your COVID-19 symptoms are worsening and you may need emergency care: You are severely dizzy or lightheaded. You are confused or can't think clearly. Your face and lips have a blue color. You are unable to respond to others or are very hard to wake up. Prevention steps for People with confirmed or suspected COVID-19 (including persons under investigation) who do not need to be hospitalized AND People with confirmed COVID-19 who were hospitalized and determined to be medically stable to go home Your healthcare provider and public health staff will evaluate whe ther you can be cared for at home. If it is determined that you do not need to be hospitalized and can be isolated at home, you willbe monitored by staff from your local or state health department. You should follow the prevention steps below until a healthcare provider or local or state health department says you can return to your normal activities. Stay home except to get medical care People who are mildly ill with COVID-19 are able to isolate at home during their illness. You should restrict activities outside your home, except for getting medical care. Do not go to work, school,or public areas. Avoid using public transportation, ride-sharing, or taxis. Separate yourself from other people and animals in your home ? People: As much as possible, you should stay in a specific room and away from other people in your home. Also, you should use a separate bathroom, if available. ? Animals: You should restrict contact with pets and other animals while you are sick with COVID-19, just like you would around other people. Although there have not been reports of pets or other animals becoming sick with COVID-19, it is still recommended that people sick with COVID-19 limit contact with animals until more information is known about the virus. When possible, have another member of your household care for your animals while you are sick. If you are sick with COVID-19, avoid contact with your pet, including petting, snuggling, being kissed or licked, and sharing food. If you must care for your pet or be around animals while you are sick, wash your hands before and after you interact with pets and wear a facemask. Call ahead before visiting your doctor If you have a medical appointment, call the healthcare provider and tell them that you have or may have COVID-19. This will help the healthcare provider's office take steps to keep other people from getting infected or exposed. Wear a facemask You should wear a facemask when you are around other people (e.g., sharing a room or vehicle) or pets and before you enter a healthcare provider's office. If you are not able to wear a facemask (for example, because it causes trouble breathing), then people who live with you should not stay in the same room with you, or they should wear a facemask if they enter your room. Cover your coughs and sneezes Cover your mouth and nose with a tissue when you cough or sneeze. Throw used tissues in a lined trash can. Immediately wash your hands with soap and water for at least 20 seconds or, if soap and water are not available, clean your hands with an alcohol-based hand residential sales executive that contains at least 60% alcohol. Clean your hands often ? Wash your hands often with soap and water for at least 20 seconds, especially after blowing your nose, coughing, or sneezing; going to the bathroom; and before eating or preparing food. If soap andwater are not readily available, use an alcohol-based hand residential sales executive with at least 60% alcohol, covering all surfaces of your hands and rubbing them together until they feel dry. ? Soap and water are the best option if hands are visibly dirty. Avoid touching your eyes, nose, and mouth with unwashed hands. Avoid sharing personal household items You should not share dishes, drinking glasses, cups, eating utensils, towels, or bedding with otherpeople or pets in your home. After using these items, they should be washed thoroughly with soap and water. Clean all high-touch surfaces everyday High touch surfaces include counters, tabletops, doorknobs, bathroom fixtures, toilets, phones, keyboards, tablets, and bedside tables. Also, clean any surfaces that may have blood, stool, or body fluids on them. Use a household cleaning spray or wipe, according to the label instructions. Labels contain instructions for safe and effective use of the cleaning product including precautions you should take when applying the product, such as wearing gloves and making sure you have good ventilation during use of the product. Monitor your symptoms ? Seek prompt medical attention if your illness is worsening (e.g., difficulty breathing). Before seeking care, call your healthcare provider and tell them that you have, or are being evaluated for, COVID-19. Put on a facemask before you enter the facility. These steps will help the healthcare provider's office to keep other people in the office or waiting room from getting infected or exposed. Ask your healthcare provider to call the local or [facility] health department. Persons who are placed under active monitoring or facilitated self- monitoring should follow instructions provided by their local health department or occupational health professionals, as appropriate. When working with your [facility] health department check their available hours. ? If you have a medical emergency and need to call 911, notify the dispatch personnel that you have, or are being evaluated for COVID-19. If possible, put on a facemask before emergency medical services arrive. Discontinuing home isolation Patients with confirmed COVID-19 should remain under home isolation precautions until the risk of secondary transmission to others is thought to be low. The decision to discontinue home isolation precautions should be made on a ckkn-sk-vuco basis, in consultation with healthcare providers and [facility]. Information on COVID-19 for ALL patients Call your provider before your next appointment if you develop any of the following symptoms: fever, cough, fatigue, anorexia, shortness of breath, sputum production, and muscle pains. Headache, confusion, rhinorrhea, sore throat, hemoptysis, vomiting, and diarrhea have been reported but are less common. Some persons with COVID-19 have experienced gastrointestinal symptoms such as diarrhea and nausea prior to developing fever and lower respiratory tract signs and symptoms. Ways to [place] with Anxiety & Stress ? It is normal to feel anxious or worried about COVID-19. You might feel sad about canceling celebrations and staying away from family and friends. ? Keep in mind that most people do not get severely ill from COVID-19. It is important to have a plan in case you get sick to prevent spreading the disease to others including an Advanced Care Plan (communicating and documenting your desired health care plan with family and healthcare team). ? You can take care of yourself by: o Taking a break from watching the news o Take deep breaths, stretch or meditate o Getting exercise, eating healthy foods, and drinking plenty of water o Finding activities you can enjoy inside your home o Staying in touch with your family and friends. Tell your partner, family, and friends how you arefeeling. Advance Care Planning People with COVID-19 may have no symptoms, mild symptoms, such as fever, cough, and shortness of breath or they may have more severe illness, developing severe and fatal pneumonia. As a result, Advance Care Planning with attention to naming a health care decision maker (someone you trust to make healthcare decisions for you if you could not speak for yourself) and sharing other health care preferences is important BEFORE a possible health crisis. Please contact your Primary Care Provider to discuss Advance Care Planning. LEARNING ABOUT THE CORONAVIRUS (COVID-19): Coronavirus (COVID-19): Overview What is coronavirus (COVID-19)? The coronavirus disease (COVID-19) is caused by a virus. It is an illness that was first found in [facility], in February 2019. It has since spread worldwide. The virus can cause fever, cough, and trouble breathing. In severe cases, it can cause pneumonia and make it hard to breathe without help. It can cause . Coronaviruses are a large group of viruses. They cause the common cold. They also cause more serious illnesses like [place] East respiratory syndrome (MERS) and severe acute respiratory syndrome (SARS). COVID-19 is caused by a novel coronavirus. That means it's a new type that has not been seen in people before. This virus spreads tucqsf-kg-xmxiol through droplets from coughing and sneezing. It can also spreadwhen you are close to someone who is infected. And it can spread when you touch something that has the virus on it, such as a doorknob or a tabletop. What can you do to protect yourself from coronavirus (COVID-19)? The best way to protect yourself from getting sick is to: Avoid areas where there is an outbreak. Avoid contact with people who may be infected. Wash your hands often with soap or alcohol-based hand sanitizers. Avoid crowds and try to stay at least 6 feet away from other people. Wash your hands often, especially after you cough or sneeze. Use soap and water, and scrub for at least 20 seconds. If soap and water aren't available, use an alcohol-based hand residential sales executive. Call 911 anytime you think you may need emergency care. For example, call if: You have severe trouble breathing. (You can't talk at all.) You have constant chest pain or pressure. You are severely dizzy or lightheaded. You are confused or can't think clearly. Your face and lips have a blue color. You pass out (lose consciousness) or are very hard to wake up. Call your doctor now if you develop symptoms such as: Shortness of breath. Fever. Cough. If you need to get care, call ahead to the doctor's office for instructions before you go. Make sure you wear a face mask, if you have one, to prevent exposing other people to the virus. Where can you get the latest information? The following health organizations are tracking and studying this virus. Their websites contain themost up-to-date information. You'll also learn what to do if you think you may have been exposed tothe virus. U.S. Centers for Disease Control and Prevention (CDC): The CDC provides updated news about the disease and travel advice. The website also tells you how to prevent the spread of infection. www.cdc.gov World Health Organization (WHO): WHO offers information about the virus outbreaks. WHO also has travel advice. www.who.int Current as of: June 10, 2019 Content Version: 12. [employer]. Care instructions adapted under license by your healthcare professional. If you have questions about a medical condition or this instruction, always ask your healthcare professional. [employer] disclaims any warranty or liability for your use of this information. General Recommendations for Routine Cleaning and Disinfection of Households Community members can practice routine cleaning of frequently touched surfaces (for example: tables, doorknobs, light switches, handles, desks, toilets, faucets, sinks) with household boiling off winder and EPA-registered disinfectants that are appropriate for the surface, following label instructions. Labels contain instructions for safe and effective use of the cleaning product including precautions you should take when applying the product, such as wearing gloves and making sure you have good ventilation during use of the product. These guidelines are focused on household settings and are meant for the general public. ? Cleaning refers to the removal of germs, dirt, and impurities from surfaces. Cleaning does not kill germs, but by removing them, it lowers their numbers and the risk of spreading infection. ? Disinfecting refers to using chemicals to kill germs on surfaces. This process does not necessarily clean dirty surfaces or remove germs, but by killing germs on a surface after cleaning, it can further lower the risk of spreading infection. General Recommendations for Cleaning and Disinfection of Households with People Isolated in Home Care - Confirmed or suspected COVID 19 ? Household members should educate themselves about COVID-19 symptoms and preventing the spread of COVID-19 in homes. ? Clean and disinfect high-touch surfaces daily in household common areas (e.g. tables, hard-backedchairs, doorknobs, light switches, remotes, handles, desks, toilets, sinks) o In the bedroom/bathroom dedicated for an ill person: consider reducing cleaning frequency to as-needed (e.g., soiled items and surfaces) to avoid unnecessary contact with the ill person. ? As much as possible, an ill person should stay in a specific room and away from other people in their home. ? The caregiver can provide personal cleaning supplies for an ill person's room and bathroom, unless the room is occupied by child or another person for whom such supplies would not be appropriate. These supplies include tissues, paper towels, boiling off winder and EPA-registered disinfectants (see list link at CDC website). ? If a separate bathroom is not available, the bathroom should be cleaned and disinfected after each use by an ill person. If this is not possible, the caregiver should wait as long as practical after use by an ill person to clean and disinfect the high-touch surfaces. How to clean and disinfect: Hard Surfaces ? Wear disposable gloves when cleaning and disinfecting surfaces. Gloves should be discarded after each cleaning. If reusable gloves are used, those gloves should be dedicated for cleaning and disinfection of surfaces for COVID-19 and should not be used for other purposes. Consult the director of recreation therapy's instructions for cleaning and disinfection products used. Clean hands immediately after gloves areremoved. ? If surfaces are dirty, they should be cleaned using a detergent or soap and water prior to disinfection. ? For disinfection, diluted household bleach solutions, alcohol solutions with at least 70% alcohol, and most common EPA-registered household disinfectants should be effective. o Diluted household bleach solutions can be used if appropriate for the surface. Follow director of recreation therapy's instructions for application and proper ventilation. Check to ensure the product is not past itsexpiration date. Never mix household bleach with ammonia or any other cleanser. Unexpired householdbleach will be effective against coronaviruses when properly diluted. ? Prepare a bleach solution by mixing: ? 5 tablespoons (1/3rd cup) bleach per gallon of water or ? 4 teaspoons bleach per quart of water o Products with EPA-approved emerging viral pathogens [facility] iconexternal icon are expected to be effective against COVID-19 based on data for harder to kill viruses. Follow the director of recreation therapy's instructions for all cleaning and disinfection products (e.g., concentration, application method and contact time, etc.). Soft (porous) surfaces such as carpeted floor, rugs, and drapes Remove visible contamination if present and clean with appropriate boiling off winder indicated for use on these surfaces. After cleaning: Launder items as appropriate in accordance with the director of recreation therapy's instructions. If possible, launder items using the warmest appropriate water setting for the items and dry items completely, or Clothing, towels, linens and other items that go in the laundry ? Wear disposable gloves when handling dirty laundry from an ill person and then discard after eachuse. If using reusable gloves, those gloves should be dedicated for cleaning and disinfection of surfaces for COVID-19 and should not be used for other household purposes. Clean hands immediately after gloves are removed. o If no gloves are used when handling dirty laundry, be sure to wash hands afterwards. o If possible, do not shake dirty laundry. This will minimize the possibility of dispersing virus through the air. o Launder items as appropriate in accordance with the director of recreation therapy's instructions. If possible, launder items using the warmest appropriate water setting for the items and dry items completely. Dirtylaundry from an ill person can be washed with other people's items. o Clean and disinfect clothes hampers according to guidance above for surfaces. If possible, consider placing a cabbage salter that is either disposable (can be thrown away) or can be laundered. CDC has a list of EPA approved cleaning products on their website - https://www.cdc.gov/coronavirus/ 2019-ncov/community/home/cleaning-disinfection.html https://www.[employer]/Dhdca-Tawhxkuglli-Nhlozdyw-Products-List.pdf documented in this encounter Reason for Referral Specialty Diagnoses / Procedures Referred By Ch[place] rizo Referred To Contact Dermatology Diagnoses Scalp cyst Hilaria Husain, COMMISSIONER OF CONCILIATION [address] [place] [address] [facility] [place] [address] [place] [address] Referral ID Status Reason Start Date Expiration Date V isits Requested Visits Authorized [id number] Authorized 04/16/2022 04/16/2023 1 1 Additional Source Comments INFORMATION SOURCE (unrecogn ized section and content) DATE CREATED AUTHOR AUTHOR'S ORGANIZ ATION 01/27/2020 [facility] DATE CREATED AUTHOR AUTHOR'S ORGANIZ ATION 04/23/2021 [facility] DATE CREATED AUTHOR AUTHOR'S ORGANIZ ATION [facility] DATE CREATED AUTHOR AUTHOR'S ORGANIZ ATION 05/09/2022 [facility] DATE CREATED AUTHOR AUTHOR'S ORGANIZ ATION 07/25/2022 [facility] DATE CREATED AUTHOR AUTHOR'S ORGANIZ ATION 04/04/2023 [facility] Reason for Visit (unrecogniz ed section and content) Reason Comments Hypertension Reason Comments Establish Care Medication Management Wants to discuss s ome of the medications she is taking Possible Possible , says it is unusual to go this long without a period (since January) she says she does have PCOS but home tests have been negative. Says she feels . Says she has had cramping on Rt side, no N/V, breasts are tender and hurt. Says she started new control in January Reason Onset Date Comments Medication Refill 07/28/2021 Reason Comments Hypertension Pt says she feels gr eat. Says she does not test as well as she should. But says she feels the best she has since her daughter was born. Ear Drainage Pt says her ears are draining. Says she has really bad allergies. But feels there is something in the Rt ear Reason Comments Eye Pain Left eye pain post b eing poked accidentally by a plastic knife, contact was removed after injury Reason Comments Urinary Tract Infection For last week, c loudy urine, strong odor, pelvic pain, frequency, urgency Reason Onset Date Comments Medication Refill 03/15/2022 Reason Comments Gap Closure (Health Maintenance) Sequent ial Influenza Vaccine(1) due on 11/09/2021Wellness Visit due on 03/01/2022 Annual Exam Hypertension Check up for refills Cyst Cysts on head, needs new referral to Derm, has had them removed in the past Reason Comments Skin Lesion Specialty Diagnoses / Procedures Referred By [place] rizo Referred To Contact Dermatology Diagnoses Scalp cyst Hilaria Husain CNP [facility] [place] [address] [facility] [address] [address] Referral ID Status Reason Start Date Expiration Date Visits Re quested Visits Authorized [id number] Closed 04/16/2022 04/16/2023 1 1 Reason Onset Date Comments Medication Refill 06/19/2022 Reason Comments Suture / Staple Removal Addendum Note - Sabino Gallardo CNP - 01/13/2019 9:51 AM EST Miscellaneous Notes (unrecog nized section and content) Addended by: SABINO GALLARDO on: 01/13/2019 09:51 AM Modules accepted: Orders documented in this encounter Care Teams (unrecognized sec tion and content) Brake Repair Supervisor Relationship Specialty Start Date End Date Hilaria Husain CNP PCP - General Nurse Practitioner 05/20/15 Brake Repair Supervisor Relationship Specialty Start Date End Date LishaHilaria calderon, COMMISSIONER OF CONCILIATION PCP - General Nurse Practitioner 05/20/15 Brake Repair Supervisor Relationship Specialty Start Date End Date LishaHilaria, COMMISSIONER OF CONCILIATION PCP - General Nurse Practitioner 05/20/15 Brake Repair Supervisor Relationship Specialty Start Date End Date LishaHilaria, COMMISSIONER OF CONCILIATION PCP - General Nurse Practitioner 05/20/15 Brake Repair Supervisor Relationship Specialty Start Date End Date LishaHilaria calderon, COMMISSIONER OF CONCILIATION PCP - General Nurse Practitioner 05/20/15 Lisha Hilariacourtney LarsenMarcia, COMMISSIONER OF CONCILIATION [address] [place] [address] PCP - VINOD Attributed Provider - MMO Commercial 06/10/19 03/10/50 Brake Repair Supervisor Relationship Specialty Start Date End Date LishaHilaria calderon, COMMISSIONER OF CONCILIATION PCP - General Nurse Practitioner 05/20/15 Summer Husaincourtney LarsenMarcia, COMMISSIONER OF CONCILIATION [address] [place] [address] PCP - VINOD Attributed Provider - [employer] Commercial 06/10/19 03/10/50 Brake Repair Supervisor Relationship Specialty Start Date End Date LishaHilaria calderon, COMMISSIONER OF CONCILIATION PCP - General Nurse Practitioner 05/20/15 Hilaria Husain, COMMISSIONER OF CONCILIATION [address] [place] [address] PCP - VINOD Attributed Provider - [employer] Commercial 06/10/19 03/10/50 Brake Repair Supervisor Relationship Specialty Start Date End Date Hilaria Husain CNP PCP - General Nurse Practitioner 05/20/15 Hilaria Husain CNP [address] [place] [id number] PCP - VINOD Attributed Provider - [employer] Commercial 06/10/19 03/10/50 Brake Repair Supervisor Relationship Specialty Start Date End Date Hilaria Husain CNP PCP - General Nurse Practitioner 05/20/15 Hilaria Husain CNP [address] [place] [id number] PCP - VINOD Attributed Provider - [employer] Commercial 06/10/19 03/10/50 Brake Repair Supervisor Relationship Specialty Start Date End Date Hilaria Husain CNP PCP - General Nurse Practitioner 05/20/15 Hilaria Husain CNP [address] [place] [id number] PCP - VINOD Attributed Provider - MMO Commercial 06/10/19 03/10/50 FOR RECORDS PERTAINING TO PATIENTS WHO ARE OR HAVE BEEN ENROLLED IN A CHEMICAL DEPENDENCY/SUBSTANCEABUSE PROGRAM, SOME INFORMATION MAY BE OMITTED. This clinical summary was aggregated from multiple sources. Caution should be exercised in using it in the provision of clinical care. This summary normalizes information from multiple sources, and as a consequence, information in this document may materially change the coding, format and clinical context of patient data. In addition, data may be omitted in some cases. CLINICAL DECISIONS SHOULD BE BASED ON THE PRIMARY CLINICAL RECORDS. [facility] [employer] [facility]. provides no warranty or guarantee of the accuracy or completeness of information in this document.
[2023-05-03 17:16] LABS: Protein, Urine (Random) 12.5 mg/dL (<11.9); Protein:Creat Ratio 219 mg/g CRE (0-200)
== END | disposition home or self-care (01) ==
PROVIDERS: Registered Nurse; Referring Provider Obstetrics & Gynecology; Visit Provider Obstetrics & Gynecology
DX: O09.299 Supervision of pregnancy with other poor reproductive or obstetric history, unspecified trimester (principal); O99.210 Obesity complicating pregnancy, unspecified trimester; Z86.32 Personal history of gestational diabetes; O16.9 Unspecified maternal hypertension, unspecified trimester; Z3A.00 Weeks of gestation of pregnancy not specified
CPT/HCPCS: 36415; 80053; 82570; 84156; 85025; 86703; 86780

== ENCOUNTER → 2023-05-10 | Outpatient (CLI) | payer OTHER, SELFPAY ==
[2023-05-10 13:21] LABS: Absolute Lymphocyte Count 1.81 X10^3/uL (0.83-4.51); Absolute Neutrophil Count 7.7 X10^3/uL (2.0-7.7); Basophil# 0.02 X10^3/uL; Basophil% 0.2 % (0-1); Eosinophil# 0.08 X10^3/uL; Eosinophils% 0.8 % (0-5); Hematocrit 36.3 % (37-47); Hemoglobin 12.2 g/dL (12.0-15.0); Lymphocyte # 1.81 X10^3/ul (0.83-4.51); Lymphocyte % 17.9 % (19-41); Mean Corp Hgb Conc 33.6 g/dL (32-36); Mean Corpuscular Hgb 27.2 pg (27.0-32.0); Mean Corpuscular Volume 80.8 fL (81-99); Mean Platelet Vol. 9.7 fl (6.2-12.0); Monocyte# 0.47 X10^3/uL; Monocyte% 4.6 % (0-10); NRBC Flagged by Analyzer 0 % (0-5); Neutrophil # 7.69 X10^3/uL (2.7-7.7); Neutrophil % 76.1 % (47-70); Platelet Count 237 K/mm3 (150-450); RBC Distribution Width CV 13.1 % (11.6-14.6); RBC Distribution Width SD 38.1 fl (35.1-43.9); Red Blood Count 4.49 M/mm3 (4.2-5.4); White Blood Count 10.1 K/mm3 (4.4-11.0)
[2023-05-10 13:56] LABS: Protein, Urine (Random) 29.4 mg/dL (<11.9); Protein:Creat Ratio 241 mg/g CRE (0-200)
[2023-05-10 13:57] LABS: ALB/GLOB Ratio 0.7 RATIO (0.9-2.4); AST(SGOT) 10 U/L (15-37); Alanine Aminotransfer ALT/SGPT 11 U/L (13-56); Albumin, Serum 2.7 g/dL (3.2-5.0); Alkaline Phosphatase 89 U/L (45-117); Anion Gap 7 (5-15); BUN 8 mg/dL (7-18); Calcium,Total 9.1 mg/dL (8.5-10.1); Chloride 110 mmol/L (98-107); Creatinine, Serum 0.62 mg/dL (0.55-1.02); EST Glomerular Filtration Rate 120 mL/min (>60); Est Glom Filt Rate - Afr Amer 145 mL/min (>60); Globulin 4.1 g/dL (2.2-4.2); Glucose 109 mg/dL (74-106); Potassium 3.6 mmol/L (3.5-5.1); Protein, Total 6.8 g/dL (6.4-8.2); Sodium Level 137 mmol/L (136-145)
== END | disposition home or self-care (01) ==
LOC: LAB 12:25
PROVIDERS: Referring Provider Registered Nurse; Visit Provider Registered Nurse
DX: O09.299 Supervision of pregnancy with other poor reproductive or obstetric history, unspecified trimester (principal); Z3A.00 Weeks of gestation of pregnancy not specified
CPT/HCPCS: 36415; 80053; 82570; 84156; 85025

== ENCOUNTER 2023-05-25 18:01 | Outpatient (CLI) | payer OTHER, SELFPAY ==
[2023-05-25 18:23] VITALS: PULSE 92; PULSE 93; RESP 14; TEMP 36.8; O2SAT 96; O2SAT 98
[2023-05-25 18:24] VITALS: BP 119/64; PULSE 93
[2023-05-25 18:45] VITALS: BMI 42.3
[2023-05-25 18:46] LABS: ROM Internal Control Test YES-OK TO RESULT pt. (Internal QC); ROM Patient Test Negative (Negative); Record Kit Lot#, ROM+ K1374
[2023-05-25] MEDS: Acetaminophen 500 MG Tablet 1000 MG PO (19:38)
[2023-05-25 19:47] LABS: Bacteria 0 SEEN /hpf (None Seen); Mucous, Urine 0 SEEN /hpf (<or=2+); Red Blood Cells-Urine 0 SEEN /hpf (0-5)
[2023-05-25 19:48] LABS: Glucose, Dipstick Normal (Normal); Ketone-Dipstick 15 mg/dl (Negative); Leukocyte Esterase-Dipstick 100 /ul (Negative); Nitrite-Dipstick Negative (Negative); Occult Blood-Urine Negative /ul (Negative); Protein-Dipstick 15 mg/dl (Negative); Urine Bilirubin Dipstick Negative (Negative); Urine Urobilinogen Normal (Normal)
[2023-05-25 19:51] LABS: Color, Urine Yellow (Yellow); Urine Clarity Clear (Clear)
[2023-05-25 19:55] LABS: Squamous Epithelial Cells - UA 0-5 SEEN /hpf (5-10); White Blood Cells 5-10 SEEN /hpf (0-5)
--- NOTE | 2023-05-25 22:58 | OB.TRI.HP_ITS ---
HPI - General General Date of Admission: 05/25/23 HPI Narrative GUILLE MATOS, is a 32 y/o @ 30 weeks 2 days who presents to L&D after her toddler elbowed her in the upper abdomen below the ribcage. She denies loss of fluid, vaginal bleeding, or dec fm. Maternal Data Information AGAPITO Calculator Estimated Delivery Date Method Current WG Current Estimate 08/01/23 Ultrasound #1 30w 3d PFSH PFSH Medical History Abnormal ultrasound Amenorrhea Asthma Cleft lip and palate, , affecting care of mother, antepartum Gestational diabetes mellitus Hypertension Infertility Intertriginous dermatitis associated with moisture PCOS (polycystic ovarian syndrome) Seasonal allergies Sinusitis Skin cyst Home Medications cetirizine 10 mg tablet (Zyrtec) 10 mg PO DAILY PRN allergy symptoms 02/02/20 [History Last Taken Unknown] labetalol 300 mg tablet 100 mg PO BID 12/14/22 [History Last Taken Unknown] flash glucose sensor (FreeStyle Lily 2 Sensor kit) #1 ea 01/11/23 [Rx Last Taken Unknown] aspirin 81 mg tablet,delayed release 81 mg PO DAILY 03/07/23 [History Last Taken Unknown] folic acid w/dha PO DAILY 03/07/23 [History Last Taken Unknown] metformin 500 mg tablet,extended release 24 hr 1,000 mg (2 x 500 mg) PO BID #360 tabs 03/07/23 [Rx Last Taken Unknown] vitamin#30 30 mg iron-10 mg iron-folic acid 1 mg-omg3 capsule 1 cap PO DAILY 03/07/23 [History Last Taken Unknown] Humulin N NPH Insulin KwikPen 100 unit/mL (3 mL) subcutaneous (insulin NPH isoph U-100 human) 50 unit (0.5 mL) subcut BID #30 mL 04/16/23 [Rx Last Taken Unknown] pen needle, diabetic 32 gauge x 5/32 (BD Ultra-Fine Sophia Pen Needle) #100 ea 04/16/23 [Rx Last Taken Unknown] Allergy/AdvReac Type Severity Reaction Status Date / Time Penicillins Allergy Severe Rash Verified 05/17/23 14:48 cefdinir [From Omnicef] Allergy Anaphylaxis Verified 05/17/23 14:48 diazepam [From Valium] AdvReac Severe Other Verified 05/17/23 14:48 hydrocodone [From Vicodin] AdvReac Severe Other Verified 05/17/23 14:48 erythromycin base AdvReac Intermediate vomiting Verified 05/17/23 14:48 Family History Father Hypertension Mother Diabetes Grandfather Cancer Grandmother TIA (transient ischemic attack) Grandfather Heart disease Myocardial infarction Grandmother Rheumatoid arteritis Fibromyalgia Aunt HELLP (hemolytic anemia/elev liver enzymes/low platelets in ) Unknown Pre-eclampsia Sister Bleeding disorder, Onset Age: 21 essential thrombocythemia (blood cancer) Surgical History H/O nasal septoplasty History of History of wisdom tooth extraction, class IV edentulism Social History adopted: No household members: spouse housing: apartment current occupational status: employed 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 Date Name GA/Weeks Outcome Route Bth Weight [facility] Fahad 37 live - full term 4lbs 3oz Female Guillaume Kelly Delivery Date: 01/17/20 Last Updated by: Mary Blackburn Diabetes, Pre-eclampsia, Breech Visit Details Expected Delivery Route/Plan plans repeat c/s - 38 weeks Plans Covid status: vaccinated, but not boosted Flu vaccine: vaccinated 01/11/23 Tdap vaccine: [] Rhogam: [] LARC form signed: [] Problem list reviewed and updated with the most current plan of care details and appropriate orders placed. Relevant counseling for the gestational age provided. Continue routine care and follow up unless otherwise noted in visit notes/problem list details OB Flowsheet Initial Weight: 242 lb Date -?-?-?-?-?-?-?-?-?-?-?-?- EGA Weight BP Urine Prot -?-?-?-?-?-?-?-?-?-?-?-?- Glucose FHR FuHt Pres Dilation -?-?-?-?-?-?-?-?-?-?-?-?- Effaced St Visit Note 12/14/22 -?-?-?-?-?-?-?-?-?-?-?-?- 7w 1d 242 lb 6 oz (+6 oz) 136/95 -?-?-?-?-?-?-?-?-?-?-?-?- 163 -?-?-?-?-?-?-?-?-?-?-?-?- LC- AGAPITO by 12/13 scan 08/01/2023. FHR 163. desires nipt. plans repeat c/s. on metformin for PCOS and labetolol for chronic htn. baseline labs ordered. 01/11/23 -?-?-?-?-?-?-?-?-?-?-?-?- 11w 1d 247 lb 6 oz (+5 lb 6 oz) 123/83 Negative -?-?-?-?-?-?-?-?-?-?-?-?- Negative 171 -?-?-?-?-?-?-?-?-?-?-?-?- JChela- pt has a his tory of insulin resistance on metformin. will order a continuo us glucose monitor. on labetalol and h/o severe pre-e with IUGR> start baby asa. has baseline labs including NIPT today. JChela- pt has a history of insu loulou resistance on metformin. will order a continuous glucose monitor. on labetalol and h/o severe pre-e with IUGR> start baby asa. has baseline labs including NIPT today. CRL measuring 11 weeks 3 days. Flu shot today. 02/08/23 -?-?--?-?-?-?-?-?-?-?-?-?- 15w 1d 247 lb (+5 lb) 122/85 Negative -?-?-?-?-?-?-?-?-?-?-?-?- Negative 170 -?-?-?-?-?-?-?-?-?-?-?-?- SM- no vb crampi ng. SM- no vb cramping. elevated fasting sugars, recommend increasing metformin and referral to dr gloria 03/06/23 -?-?-?-?-?-?-?-?-?-?-?-?- 18w 6d 242 lb 6 oz (+6 oz) 114/77 Negative -?-?-?-?-?-?-?-?-?-?-?-?- Negative 143 -?-?-?-?-?-?-?-?-?-?-?-?- LC- no vb/crampi ng. has anatomy scan for tomorrow. stable sugars. genetic disorder discovered on daughter and , desires genetic counseling with [facility]. 04/05/23 -?-?-?-?-?-?-?-?-?-?-?-?- 23w 1d 244 lb (+2 lb) 120/78 Negative -?-?-?-?-?-?-?-?-?-?-?-?- Negative 150 -?-?-?-?-?-?-?-?-?-?-?-?- SM- no vb lof go od fm n oregular ctx discussed delivery planning 05/03/23 -?-?-?-?-?-?-?-?-?-?-?-?- 27w 1d 239 lb (-3 lb) 134/86 Negative -?-?-?-?-?-?-?-?-?-?-?-?- Negative 150 -?-?-?-?-?-?-?-?-?-?-?-?- SM- had some bor derline bps at home. no vb lof good fm no regular ctx had some illness. check preeclampsia labs today for borderline bps at home 05/17/23 -?-?-?-?-?-?-?-?-?-?-?-?- 29w 1d 240 lb (-2 lb) 115/72 Negative -?-?-?-?-?-?-?-?-?-?-?-?- Negative 150 32 -?-?-?-?-?-?-?-?-?-?-?-?- SM- no vb lof go od fm no regular ctx ROS Constitutional Constitutional: Reports systems reviewed and no addt'l complaints, except as documented Gastrointestinal Gastrointestinal: Denies bloating, constipation, cramping, diarrhea, nausea or vomiting Genitourinary Genitourinary: Reports other Details: Denies vaginal odor, vaginal bleeding, or vaginal discharge ; Denies difficulty urinating or flank pain NST FHR Rate Baby A Baseline: 140 Variability:: Moderate Accelerations:: 15 x 15 Decelerations:: None NST Reactive:: Yes FHR Category:: Category I Charges/Coding Multi Select Codes Urinary/Genital Urinary/Genital CPT Codes: 72332-78 non-stress test Interp
--- NOTE | 2023-05-25 22:58 | OB.TRI.NOTE ---
HPI - General HPI Narrative GUILLE MATOS, is a 32 y/o @ 30 weeks 2 days who presents to L&D after her toddler elbowed her in the upper abdomen below the ribcage. She denies loss of fluid, vaginal bleeding, or dec fm. Maternal Data Information AGAPITO Calculator Estimated Delivery Date Method Current WG Current Estimate 08/01/23 Ultrasound #1 30w 3d PFSH PFS Medical History Abnormal ultrasound Amenorrhea Asthma Cleft lip and palate, , affecting care of mother, antepartum Gestational diabetes mellitus Hypertension Infertility Intertriginous dermatitis associated with moisture PCOS (polycystic ovarian syndrome) Seasonal allergies Sinusitis Skin cyst Home Medications cetirizine 10 mg tablet (Zyrtec) 10 mg PO DAILY PRN allergy symptoms 02/02/20 [History Last Taken Unknown] labetalol 300 mg tablet 100 mg PO BID 12/14/22 [History Last Taken Unknown] flash glucose sensor (FreeStyle Lily 2 Sensor kit) #1 ea 01/11/23 [Rx Last Taken Unknown] aspirin 81 mg tablet,delayed release 81 mg PO DAILY 03/07/23 [History Last Taken Unknown] folic acid w/dha PO DAILY 03/07/23 [History Last Taken Unknown] metformin 500 mg tablet,extended release 24 hr 1,000 mg (2 x 500 mg) PO BID #360 tabs 03/07/23 [Rx Last Taken Unknown] vitamin#30 30 mg iron-10 mg iron-folic acid 1 mg-omg3 capsule 1 cap PO DAILY 03/07/23 [History Last Taken Unknown] Humulin N NPH Insulin KwikPen 100 unit/mL (3 mL) subcutaneous (insulin NPH isoph U-100 human) 50 unit (0.5 mL) subcut BID #30 mL 04/16/23 [Rx Last Taken Unknown] pen needle, diabetic 32 gauge x 5/32 (BD Ultra-Fine Sophia Pen Needle) #100 ea 04/16/23 [Rx Last Taken Unknown] Allergy/AdvReac Type Severity Reaction Status Date / Time Penicillins Allergy Severe Rash Verified 05/17/23 14:48 cefdinir [From Omnicef] Allergy Anaphylaxis Verified 05/17/23 14:48 diazepam [From Valium] AdvReac Severe Other Verified 05/17/23 14:48 hydrocodone [From Vicodin] AdvReac Severe Other Verified 05/17/23 14:48 erythromycin base AdvReac Intermediate vomiting Verified 05/17/23 14:48 Family History Father Hypertension Mother Diabetes Grandfather Cancer Grandmother TIA (transient ischemic attack) Grandfather Heart disease Myocardial infarction Grandmother Rheumatoid arteritis Fibromyalgia Aunt HELLP (hemolytic anemia/elev liver enzymes/low platelets in ) Unknown Pre-eclampsia Sister Bleeding disorder, Onset Age: 21 essential thrombocythemia (blood cancer) Surgical History H/O nasal septoplasty History of History of wisdom tooth extraction, class IV edentulism Social History adopted: No household members: spouse housing: apartment current occupational status: employed 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 Date Name GA/Weeks Outcome Route Bth Weight Infant Gen Labor Lgth Anesthesia Del Locatn Provider FOB 01/17/20 Fahad 37 live - full term 4lbs 3oz Female Guillaume Kelly Delivery Date: 01/17/20 Last Updated by: Mary Blackburn Diabetes, Pre-eclampsia, Breech Visit Details Expected Delivery Route/Plan plans repeat c/s - 38 weeks Plans Covid status: vaccinated, but not boosted Flu vaccine: vaccinated 01/11/23 Tdap vaccine: [] Rhogam: [] LARC form signed: [] Problem list reviewed and updated with the most current plan of care details and appropriate orders placed. Relevant counseling for the gestational age provided. Continue routine care and follow up unless otherwise noted in visit notes/problem list details OB Flowsheet Initial Weight: 242 lb Date <del>?</del> EGA Weight BP Urine Prot <del>?</del> Glucose FHR FuHt Pres Dilation <del>?</del> Effaced St Visit Note 12/14/22 <del>?</del> 7w 1d 242 lb 6 oz (+6 oz) 136/95 <del>?</del> 163 <del>?</del> LC- AGAPITO by 12/13 scan 08/01/2023. FHR 163. desires nipt. plans repeat c/s. on metformin for PCOS and labetolol for chronic htn. baseline labs ordered. 01/11/23 <del>?</del> 11w 1d 247 lb 6 oz (+5 lb 6 oz) 123/83 Negative <del>?</del> Negative 171 <del>?</del> JV- pt has a history of insulin resistance on metformin. will order a continuous glucose monitor. on labetalol and h/o severe pre-e with IUGR> start baby asa. has baseline labs including NIPT today. JV- pt has a history of insulin resistance on metformin. will order a continuous glucose monitor. on labetalol and h/o severe pre-e with IUGR> start baby asa. has baseline labs including NIPT today. CRL measuring 11 weeks 3 days. Flu shot today. 02/08/23 <del>?</del> 15w 1d 247 lb (+5 lb) 122/85 Negative <del>?</del> Negative 170 <del>?</del> SM- no vb cramping. SM- no vb cramping. elevated fasting sugars, recommend increasing metformin and referral to dr gloria 03/06/23 <del>?</del> 18w 6d 242 lb 6 oz (+6 oz) 114/77 Negative <del>?</del> Negative 143 <del>?</del> LC- no vb/cramping. has anatomy scan for tomorrow. stable sugars. genetic disorder discovered on daughter and , desires genetic counseling with [facility]. 04/05/23 <del>?</del> 23w 1d 244 lb (+2 lb) 120/78 Negative <del>?</del> Negative 150 <del>?</del> SM- no vb lof good fm n oregular ctx discussed delivery planning 05/03/23 <del>?</del> 27w 1d 239 lb (-3 lb) 134/86 Negative <del>?</del> Negative 150 <del>?</del> SM- had some borderline bps at home. no vb lof good fm no regular ctx had some illness. check preeclampsia labs today for borderline bps at home 05/17/23 <del>?</del> 29w 1d 240 lb (-2 lb) 115/72 Negative <del>?</del> Negative 150 32 <del>?</del> SM- no vb lof good fm no regular ctx ROS Constitutional Constitutional: Reports systems reviewed and no addt'l complaints, except as documented Gastrointestinal Gastrointestinal: Denies bloating, constipation, cramping, diarrhea, nausea or vomiting Genitourinary Genitourinary: Reports other Details: Denies vaginal odor, vaginal bleeding, or vaginal discharge ; Denies difficulty urinating or flank pain NST FHR Rate Baby A Baseline: 130 Variability:: Moderate Accelerations:: 15 x 15 Decelerations:: None NST Reactive:: Yes FHR Category:: Category I Assessment & Plan (1) Modified White class B pregestational diabetes mellitus: COMMENT: insulin, metfomin. srinivas gloria. Growth Q4wk and twice wkly NST at 32 wk. 05/03 growth adequate (2) History of prior with IUGR : COMMENT: third trimester testing already planned (3) History of : COMMENT: Jan 2020, plan RLTCS at 38 weeks, 07/17 @ 12 with SM (4) Supervision of high-risk : QUALIFIERS: Trimester: second trimester Qualified Code(s): O09.92 - Supervision of high risk , unspecified, second trimester COMMENT: PRR AGAPITO: 08/01/2023 lili Bowles PC: Fahad Spouse: Robin (5) Obesity affecting : QUALIFIERS: Trimester: second trimester Qualified Code(s): O99.212 - Obesity complicating , second trimester COMMENT: encouraged healthy weight gain (6) : QUALIFIERS: Weeks of gestation: 29 weeks Qualified Code(s): Z3A.29 - 29 weeks gestation of COMMENT: low risk nipt . obtaining genetic testing with daughter with nahomy [facility] and results are pending. (7) History of pre-eclampsia in prior , currently : COMMENT: baseline PEC labs, 05/06 rpt PEC labs this week (8) Hypertension: QUALIFIERS: Hypertension type: primary hypertension Qualified Code(s): I10 - Essential (primary) hypertension COMMENT: on labetolol 100mg deliver at 38 weeks - testing planned weekly bpp and weekly nst for GDM and cHTN growth q 4 weeks with MFM echo sched 04/03/23 (9) Trauma during : COMMENT: mild hit to upper abdomen away from uterus PLAN: Plan pt reassured that was not hit in uterus. NSt reactive when baby is on the monitor (very active) after 114, decision made to dc to home Charges/Coding Multi Select Codes Urinary/Genital Urinary/Genital CPT Codes: 27973-69 non-stress test Interp
== END 2023-05-25 20:15 | disposition home or self-care (01) ==
LOC: WPOUT 18:02 → WP 18:03
PROVIDERS: Visit Provider Obstetrics & Gynecology
DX: O71.89 Other specified obstetric trauma (principal); Z79.4 Long term (current) use of insulin; O16.3 Unspecified maternal hypertension, third trimester; Z3A.30 30 weeks gestation of pregnancy; O99.213 Obesity complicating pregnancy, third trimester; O24.313 Unspecified pre-existing diabetes mellitus in pregnancy, third trimester; Z79.899 Other long term (current) drug therapy; Z79.84 Long term (current) use of oral hypoglycemic drugs
CPT/HCPCS: 59025; 59050; 81001; 84112; 87086; 87088; 99221; G0378

== ENCOUNTER → 2023-06-07 | Outpatient (CLI) | payer OTHER, SELFPAY ==
--- NOTE | 2023-06-07 14:22 | US_ITS ---
EXAM: US BIOPHYSICAL PROFILE WITHOUT NON-STRESS TESTING CLINICAL INDICATION: Gestational diabetes, chronic hypertension TECHNIQUE: Real-time ultrasound of the maternal pelvis for biophysical profile evaluation with image documentation. COMPARISON: No relevant prior studies available. FINDINGS: BREATHING MOVEMENTS: Present. Score 2/2. GROSS BODY MOVEMENTS: Present. Score 2/2. TONE: Present. Score 2/2. QUALITATIVE AMNIOTIC FLUID VOLUME: SAMMIE 16.4 cm. FETUS: There is an intrauterine gestation. HEART RATE: heart rate is 147 bpm. PRESENTATION: The fetus is in the cephalic position. PLACENTA: Placenta is anterior. OTHER FINDINGS: Biophysical profile score is 8/8. US/Biophysical Prof W/O Non Stres IMPRESSION: Biophysical profile score 8/8. heart rate is 147 bpm. Electronically Signed: Enoc Anguiano MD at 0:00 EDT ,
== END | disposition home or self-care (01) ==
LOC: US 14:21
PROVIDERS: Referring Provider Obstetrics & Gynecology; Visit Provider Obstetrics & Gynecology
DX: O24.319 Unspecified pre-existing diabetes mellitus in pregnancy, unspecified trimester (principal); O10.919 Unspecified pre-existing hypertension complicating pregnancy, unspecified trimester; Z3A.00 Weeks of gestation of pregnancy not specified
CPT/HCPCS: 76819

== ENCOUNTER → 2023-06-14 | Outpatient (CLI) | payer OTHER, SELFPAY ==
[2023-06-14 16:24] LABS: Absolute Lymphocyte Count 1.93 X10^3/uL (0.83-4.51); Absolute Neutrophil Count 5.6 X10^3/uL (2.0-7.7); Basophil# 0.01 X10^3/uL; Basophil% 0.1 % (0-1); Eosinophil# 0.08 X10^3/uL; Hematocrit 36.1 % (37-47); Hemoglobin 12.3 g/dL (12.0-15.0); Lymphocyte # 1.93 X10^3/ul (0.83-4.51); Lymphocyte % 23.2 % (19-41); Mean Corp Hgb Conc 34.1 g/dL (32-36); Mean Corpuscular Hgb 27.1 pg (27.0-32.0); Mean Corpuscular Volume 79.5 fL (81-99); Mean Platelet Vol. 10.6 fl (6.2-12.0); Monocyte# 0.67 X10^3/uL; Monocyte% 8.1 % (0-10); NRBC Flagged by Analyzer 0 % (0-5); Neutrophil # 5.58 X10^3/uL (2.7-7.7); Neutrophil % 67.1 % (47-70); Platelet Count 235 K/mm3 (150-450); RBC Distribution Width CV 13.7 % (11.6-14.6); RBC Distribution Width SD 39.3 fl (35.1-43.9); Red Blood Count 4.54 M/mm3 (4.2-5.4); White Blood Count 8.3 K/mm3 (4.4-11.0)
[2023-06-14 16:40] LABS: Protein, Urine (Random) 26.7 mg/dL (<11.9); Protein:Creat Ratio 252 mg/g CRE (0-200)
[2023-06-14 16:56] LABS: ALB/GLOB Ratio 0.7 RATIO (0.9-2.4); AST(SGOT) 19 U/L (15-37); Alanine Aminotransfer ALT/SGPT 22 U/L (13-56); Albumin, Serum 2.9 g/dL (3.2-5.0); Alkaline Phosphatase 105 U/L (45-117); Anion Gap 9 (5-15); BUN 10 mg/dL (7-18); BUN/Creat Ratio 14.8 RATIO (10-20); Chloride 109 mmol/L (98-107); Creatinine, Serum 0.67 mg/dL (0.55-1.02); EST Glomerular Filtration Rate 108 mL/min (>60); Est Glom Filt Rate - Afr Amer 131 mL/min (>60); Globulin 4.1 g/dL (2.2-4.2); Glucose 78 mg/dL (74-106); Potassium 3.7 mmol/L (3.5-5.1); Sodium Level 138 mmol/L (136-145)
== END | disposition home or self-care (01) ==
LOC: LAB 14:23
PROVIDERS: Referring Provider Obstetrics & Gynecology; Visit Provider Obstetrics & Gynecology
DX: O24.319 Unspecified pre-existing diabetes mellitus in pregnancy, unspecified trimester (principal); O09.299 Supervision of pregnancy with other poor reproductive or obstetric history, unspecified trimester; O16.9 Unspecified maternal hypertension, unspecified trimester; Z3A.00 Weeks of gestation of pregnancy not specified
CPT/HCPCS: 36415; 80053; 82570; 84156; 85025

== ENCOUNTER 2023-06-18 17:07 | Outpatient (CLI) | payer OTHER, SELFPAY ==
[2023-06-18] VITALS (10 sets, daily range): BP systolic 107–142; BP diastolic 64–79; PULSE 92–106; RESP 22; TEMP 37.4; O2SAT 98–99; BMI 40.8
[2023-06-18] MEDS: 0.9% Saline Lock 10 ML Syringe IV (18:05)
[2023-06-18 18:30] LABS: Hematocrit 39.4 % (37-47); Mean Corpuscular Hgb 25.9 pg (27.0-32.0); Mean Corpuscular Volume 78.6 fL (81-99); Mean Platelet Vol. 10.2 fl (6.2-12.0); Platelet Count 234 K/mm3 (150-450); RBC Distribution Width CV 13.5 % (11.6-14.6); RBC Distribution Width SD 38.4 fl (35.1-43.9); Red Blood Count 5.01 M/mm3 (4.2-5.4); White Blood Count 11.5 K/mm3 (4.4-11.0)
[2023-06-18] MEDS: Lactated Ringers 1,000 ML 999 ML IV (18:31)
[2023-06-18 18:37] LABS: Bacteria 0 SEEN /hpf (None Seen); Mucous, Urine 0 SEEN /hpf (<or=2+); Red Blood Cells-Urine 0 SEEN /hpf (0-5)
[2023-06-18 18:39] LABS: Color, Urine Yellow (Yellow); Glucose, Dipstick Normal (Normal); Ketone-Dipstick 50 mg/dl (Negative); Leukocyte Esterase-Dipstick 100 /ul (Negative); Nitrite-Dipstick Negative (Negative); Occult Blood-Urine Negative /ul (Negative); Protein-Dipstick Negative (Negative); Urine Bilirubin Dipstick Negative (Negative); Urine Clarity Sl. Cloudy (Clear); Urine Urobilinogen Normal (Normal)
[2023-06-18 18:40] LABS: AST(SGOT) 13 U/L (15-37); Alanine Aminotransfer ALT/SGPT 20 U/L (13-56); Creatinine, Serum 0.54 mg/dL (0.55-1.02); EST Glomerular Filtration Rate 138 mL/min (>60); Est Glom Filt Rate - Afr Amer 167 mL/min (>60); Uric Acid 5.6 mg/dL (2.6-6.0)
[2023-06-18 18:41] LABS: Protein, Urine (Random) 18.4 mg/dL (<11.9); Protein:Creat Ratio 289 mg/g CRE (0-200)
[2023-06-18] MEDS: Ondansetron 4 MG/2 ML Vial IV (19:00)
[2023-06-18 19:18] LABS: Fetal Fibronectin Negative; Record Kit Lot#, fFN H3011
[2023-06-18 19:22] LABS: Fibrinogen 510 mg/dl (203-444)
[2023-06-18 19:23] LABS: Squamous Epithelial Cells - UA 5-10 SEEN /hpf (5-10); White Blood Cells 0-5 SEEN /hpf (0-5)
[2023-06-18] MEDS: Acetaminophen 500 MG Tablet 1000 MG PO (19:38)
--- NOTE | 2023-06-18 20:11 | OB.TRI.PN ---
Progress Notes Date of Service: 06/18/23 Progress Note: Patient presents for triage evaluation secondary to elevated bps at home and visual changes FHT: 140 Moderate variability reactive no decelerations category I tracing [place]: irregular Contractions Assessment and plan: Normal Pre E labs, FFN neg, Reactive NST, reassuring maternal and status patient discharged to home to follow-up in office on saturday with SM. See problem list details for additional plan information. Laboratory Studies: Laboratory Tests 06/18/23 06/18/23 06/18/23 Range/Units 18:43 18:25 18:05 WBC 11.5 H (4.4-11.0) K/mm3 RBC 5.01 (4.2-5.4) M/mm3 Hgb 13.0 (12.0-15.0) g/dL Hct 39.4 (37-47) % MCV 78.6 L (81-99) fL MCH 25.9 L (27.0-32.0) pg MCHC 33.0 (32-36) g/dL RDW Std Deviation 38.4 (35.1-43.9) fl RDW Coeff of Edward 13.5 (11.6-14.6) % Plt Count 234 (150-450) K/mm3 MPV 10.2 (6.2-12.0) fl Fibrinogen 510 H (203-444) mg/dl Creatinine 0.54 L (0.55-1.02) mg/dL Est GFR (MDRD) Af Amer 167 (>60) mL/min Est GFR (MDRD) Non-Af 138 (>60) mL/min Uric Acid 5.6 (2.6-6.0) mg/dL AST 13 L (15-37) U/L ALT 20 (13-56) U/L Urine Color Yellow (Yellow) Urine Clarity Sl. Cloudy (Clear) Urine pH 7.0 (5.0 - 8.0) Ur Specific Sanford 1.010 (1.002-1.030) Urine Protein Negative (Negative) mg/dl Urine Glucose (UA) Normal (Normal) mg/dl Urine Ketones 50 H (Negative) mg/dl Urine Occult Blood Negative (Negative) /ul Urine Nitrite Negative (Negative) Urine Bilirubin Negative (Negative) mg/dL Urine Urobilinogen Normal (Normal) mg/dl Ur Leukocyte Esterase 100 H (Negative) /ul Urine RBC 0 SEEN (0-5) /hpf Urine WBC 0-5 SEEN (0-5) /hpf Ur Squamous Epith Cells 5-10 SEEN (5-10) /hpf Urine Bacteria 0 SEEN (None Seen) /hpf Urine Mucus 0 SEEN (<or=2+) /hpf U Random Total Protein 18.4 H (<11.9) mg/dL Urine Creatinine 63.70 (NO RANGE EST.) mg/dL Protein/Creatinin Ratio 289 H (0-200) mg/g CRE Fibronectin Negative Charges/Coding Multi Select Codes Urinary/Genital Urinary/Genital CPT Codes: 32859-60 non-stress test Interp Assessment & Plan (1) UTI (urinary tract infection) during : PLAN: treat based on sx and elevated leuks. macrobid follow up saturday (2) uterine contractions: COMMENT: ffn neg, closed cervical exam PLAN: IV fluid bolus resolving ctx probable UTI-start treatment FFN neg-closed cervical exam Continue to push fluids follow up with SM on saturday
== END 2023-06-18 20:53 | disposition home or self-care (01) ==
LOC: WPOUT 17:10 → WP 17:10
PROVIDERS: Obstetrics & Gynecology; Referring Provider Advanced Practice Midwife; Visit Provider Advanced Practice Midwife
DX: O23.40 Unspecified infection of urinary tract in pregnancy, unspecified trimester (principal); O47.9 False labor, unspecified; Z3A.00 Weeks of gestation of pregnancy not specified
CPT/HCPCS: 96374; 96361; 59025; 59050; 81001; 82565; 82570; 82731; 84156; 84450; 84460; 84550; 85027; 85384; 87086; 99221; J7120; A4216; G0378; J2405

== ENCOUNTER → 2023-07-04 | Outpatient (CLI) | payer OTHER, SELFPAY | END | disposition home or self-care (01) | LOC: LABSPEC 17:00 | PROVIDERS: Referring Provider Nurse Practitioner Women's Health; Visit Provider Nurse Practitioner Women's Health | DX: Z34.90 Encounter for supervision of normal pregnancy, unspecified, unspecified trimester (principal); Z3A.00 Weeks of gestation of pregnancy not specified | CPT/HCPCS: 87077; 87081; 87186 ==

== ENCOUNTER 2023-07-18 09:35 | Inpatient (IN) | payer OTHER, SELFPAY ==
[2023-07-18] VITALS (73 sets, daily range): BP systolic 98–115; BP diastolic 58–93; PULSE 71–99; RESP 13–26; TEMP 36.4–37.1; O2SAT 92–100; BMI 41.7
[2023-07-18] MEDS: Lactated Ringers 1,000 ML 999 ML IV ×2 (10:15→18:49)
[2023-07-18 10:37] LABS: Absolute Lymphocyte Count 1.84 X10^3/uL (0.83-4.51); Absolute Neutrophil Count 5.7 X10^3/uL (2.0-7.7); Basophil# 0.01 X10^3/uL; Basophil% 0.1 % (0-1); Eosinophil# 0.06 X10^3/uL; Eosinophils% 0.7 % (0-5); Hematocrit 35.5 % (37-47); Hemoglobin 11.6 g/dL (12.0-15.0); Lymphocyte # 1.84 X10^3/ul (0.83-4.51); Lymphocyte % 22.1 % (19-41); Mean Corp Hgb Conc 32.7 g/dL (32-36); Mean Corpuscular Hgb 25.7 pg (27.0-32.0); Mean Corpuscular Volume 78.7 fL (81-99); Mean Platelet Vol. 10.2 fl (6.2-12.0); Monocyte# 0.64 X10^3/uL; Monocyte% 7.7 % (0-10); NRBC Flagged by Analyzer 0 % (0-5); Neutrophil # 5.74 X10^3/uL (2.7-7.7); Platelet Count 211 K/mm3 (150-450); RBC Distribution Width CV 13.9 % (11.6-14.6); Red Blood Count 4.51 M/mm3 (4.2-5.4); White Blood Count 8.3 K/mm3 (4.4-11.0)
[2023-07-18] MEDS: Acetaminophen 500 MG Tablet 1000 MG PO ×3 (10:43→23:26)
[2023-07-18 10:56] LABS: Bedside Glucose 72 mg/dL (74-106)
[2023-07-18 11:31] LABS: Syphilis Antibodies Non-reactive
[2023-07-18] MEDS: Lactated Ringers 1,000 ML 150 ML IV (11:50)
[2023-07-18] MEDS: Sodium Citrate/Citric Acid 30 ML UDC PO (11:50)
[2023-07-18] MEDS: Clindamycin 900 MG/50 ML BAG 75 MG IV (12:21)
[2023-07-18] MEDS: Gentamicin IV 270 MG in Dextrose 5%-Water (50mL Bag) 50 ML 100 MG IVPB (12:50)
[2023-07-18] MEDS: Oxytocin 15 Units/NS 250ml 15 UNITS/250 ML IV.SOLN 83 UNITS IV (14:02)
--- NOTE | 2023-07-18 14:04 | FALS_PTH ---
PATIENT: GUILLE MATOS LOC: [facility] U#:[id number] AGE/SX: 32/F ROOM: WP006 RE07/18/[address]: Dr. Elaina Huntley MD : 1990 BED: 1 DIS: 07/20/2023 SPEC #: [id number] RECD: 07/18/23 14:20 STATUS: MARY GREGORYMaricruz #: [id number] IRON: 07/18/23 14:[address]: Elaina Huntley DEPT: SURGICAL PATHOLOGY RECD BY: Billie Robles ENTERED: 07/19/23 07:08 SP TYPE: FALL TUBES OTHR DR: No Primary Care Phys Tissues: Fallopian tube Procedures: Surgery Specimen Level II HEADER OPERATION: Tubal ligation PRE-OP DIAGNOSIS: Sterilization TISSUE SUBMITTED: Fallopian tubes MICROSCOPIC DIAGNOSIS Right fallopian tube, salpingectomy: Complete cross sections of fallopian tube with no pathologic change. Left fallopian tube, salpingectomy: Complete cross sections of fallopian tube with no pathologic change. AM: 07/22/2023 MICROSCOPIC DESCRIPTION Slides are reviewed. GROSS DESCRIPTION Received in fixative is one container labeled with the patient's name and designated bilateral fallopian tubes- right tube with stitch. The specimen consists of two tubular pieces of pink-ortiz soft tissue with the right identified with a suture. The right fallopian tube measures 7.0 cm in length and 0.6 cm in diameter. The left fallopian tube measures 4.5 cm in length and 0.6 cm in diameter. The entire specimen is submitted in two cassettes as follows: 1 - right fallopian tube, 2 - left fallopian tube. / SJ: 07/19/23 TC:4 CPT: 58543 x2
[2023-07-18 14:56] LABS: Bedside Glucose 70 mg/dL (74-106)
[2023-07-18] MEDS: Ketorolac 30 MG/ML Syringe IV ×2 (15:41→22:25)
[2023-07-18] MEDS: Lactated Ringers 1,000 ML 100 ML IV (16:17)
--- NOTE | 2023-07-18 18:42 | NURSING ---
Phone call placed to Nicola Ham to put in [address] Huntley notified [id number] of patient's low urine output, 50 ml from enriquez in the past 2 hours. Verbal orders for 1L fluid bolus placed and patient encouraged to increase PO intake. Will continue to monitor and call provider back if urine output has not improved in a couple hours.
[2023-07-18] MEDS: Labetalol 100 MG Tablet PO (22:25)
[2023-07-19] VITALS (29 sets, daily range): BP systolic 92–134; BP diastolic 54–85; PULSE 87–98; RESP 16–18; TEMP 36.6–36.7; O2SAT 92–100
[2023-07-19] MEDS: Enoxaparin 40 MG/0.4 ML Syringe SC ×2 (04:05→15:46)
[2023-07-19] MEDS: Ketorolac 30 MG/ML Syringe IV ×2 (04:06→09:58)
[2023-07-19] MEDS: Acetaminophen 500 MG Tablet 1000 MG PO ×3 (05:27→18:22)
[2023-07-19 05:53] LABS: Bedside Glucose 81 mg/dL (74-106)
[2023-07-19 06:14] LABS: Hematocrit 31.2 % (37-47); Hemoglobin 10.2 g/dL (12.0-15.0); Mean Corp Hgb Conc 32.7 g/dL (32-36); Mean Corpuscular Hgb 26.2 pg (27.0-32.0); Mean Corpuscular Volume 80.2 fL (81-99); Mean Platelet Vol. 10.7 fl (6.2-12.0); Platelet Count 184 K/mm3 (150-450); RBC Distribution Width SD 40.7 fl (35.1-43.9); Red Blood Count 3.89 M/mm3 (4.2-5.4); White Blood Count 8.5 K/mm3 (4.4-11.0)
[2023-07-19] MEDS: Senna/Docusate Sodium 1 Tablet PO (09:57)
[2023-07-19] MEDS: Labetalol 100 MG Tablet PO ×2 (09:58→22:10)
[2023-07-19] MEDS: 0.9% Saline Lock 10 ML Syringe IV (10:02)
--- NOTE | 2023-07-19 12:37 | PCM.PN.OB ---
Subjective Subjective Patient doing well without complaints. Tolerating PO. Ambulating and voiding without difficulty. Feeding well. Denies chest pain, shortness of breath, calf pain/swelling, fevers, chills, lightheadedness. Objective Data Objective Data Vital Signs: Vital Signs Temp Pulse Resp BP Pulse Ox O2 Del Method 97.9 F 88 18 123/84 H 97 Room Air 07/19/23 07:55 07/19/23 07:55 07/19/23 10:00 07/19/23 10:00 07/19/23 10:00 07/19/23 10:00 Oxygen Delivery Method Room Air Weight: 243 lb Body Mass Index (BMI) 41.7 Intake & Output: Intake and Output for Last 24 Hours 07/17/23 07/18/23 07/19/23 23:59 23:59 23:59 Intake Total 3573.42 / 3573.42 Output Total 1580 / 1580 800 / 800 Balance 1992.42 / 1992.42 -800 / -800 Lab / Micro Data 07/19/23 05:30 Labs: Laboratory Results - last 24 hr 07/18/23 14:38: POC Glucose 70 L 07/19/23 05:30: WBC 8.5, RBC 3.89 L, Hgb 10.2 L, Hct 31.2 L, MCV 80.2 L, MCH 26.2 L, MCHC 32.7, RDW Std Deviation 40.7, RDW Coeff of Edward 14.0, Plt Count 184, MPV 10.7 07/19/23 05:33: POC Glucose 81 ROS Constitutional Constitutional: Reports systems reviewed and no addt'l complaints, except as documented; Denies anorexia or headache(s) Cardiovascular Cardiovascular: Reports systems reviewed and no addt'l complaints, except as documented; Denies dizziness, dyspnea, nausea or tachypnea Respiratory/Chest Respiratory/Chest: Reports systems reviewed and no addt'l complaints, except as documented; Denies cough, dyspnea, shortness of breath at rest or tachypnea Gastrointestinal Gastrointestinal: Reports systems reviewed and no addt'l complaints, except as documented; Denies abdominal pain, constipation or nausea Genitourinary Genitourinary: Reports systems reviewed and no addt'l complaints, except as documented; Denies burning urination, difficulty urinating, dysuria, urinary frequency or urinary incontinence Musculoskeletal Musculoskeletal: Reports systems reviewed and no addt'l complaints, except as documented Integumentary Integumentary: Reports systems reviewed and no addt'l complaints, except as documented Neurologic Neurologic: Reports systems reviewed and no addt'l complaints, except as documented; Denies abnormal speech, dizziness or headache(s) Psychiatric Psychiatric: Reports systems reviewed and no addt'l complaints, except as documented Endocrine Endocrinology: Reports systems reviewed and no addt'l complaints, except as documented Hematologic/Lymphatic Hematologic/Lymphatic: Reports systems reviewed and no addt'l complaints, except as documented Physical Exam Const alert, oriented x3 and no apparent distress Neck full ROM Resp normal respiratory effort, normal air movement and no retractions Effort and Inspection: able to speak in complete sentences and symmetric chest movement GI soft to palpation Bladder / Kidney Exam: bladder normal to palpation Uterus Palpation: uterus fundus Extremity normal to inspection and full ROM Psych mental status grossly normal, thought process normal and cooperative Assessment & Plan (1) delivery delivered: PLAN: s/p LTCS PPD # 1 1. routine post care 2. breast feeding- support given 3. rh positive 4. rubella immune (2) GBS (group B Streptococcus carrier), +RV culture, currently : COMMENT: treat if labor (3) uterine contractions: COMMENT: ffn neg, closed cervical exam (4) UTI (urinary tract infection) during : QUALIFIERS: Trimester: third trimester Qualified Code(s): O23.43 - Unspecified infection of urinary tract in , third trimester (5) Nausea and vomiting during : (6) Modified White class B pregestational diabetes mellitus: COMMENT: insulin, metfomin. srinivas gloria. Growth Q4wk and twice wkly NST at 32 wk. 05/03 growth adequate (7) History of prior with IUGR : COMMENT: third trimester testing already planned (8) History of : COMMENT: Jan 2020, plan RLTCS at 38 weeks, 07/17 @ 12 with SM (9) Supervision of high-risk : QUALIFIERS: Trimester: second trimester Qualified Code(s): O09.92 - Supervision of high risk , unspecified, second trimester COMMENT: PRR AGAPITO: 08/01/2023 lili Bowles PC: Fahad Spouse: Robin (10) Obesity affecting : QUALIFIERS: Trimester: second trimester Qualified Code(s): O99.212 - Obesity complicating , second trimester COMMENT: encouraged healthy weight gain (11) : QUALIFIERS: Weeks of gestation: 37 weeks Qualified Code(s): Z3A.37 - 37 weeks gestation of COMMENT: low risk nipt . obtaining genetic testing with daughter with nahomy perkins and results are pending. (12) History of pre-eclampsia in prior , currently : COMMENT: baseline PEC labs, 05/06 rpt PEC labs this week (13) Hypertension: QUALIFIERS: Hypertension type: primary hypertension Qualified Code(s): I10 - Essential (primary) hypertension COMMENT: on labetolol 100mg deliver at 38 weeks - testing planned weekly bpp and weekly nst for GDM and cHTN growth q 4 weeks with MFM echo sched 04/03/23 Charges/Coding Multi Select Codes Urinary/Genital Urinary/Genital CPT Codes: No Charge
[2023-07-19] MEDS: Naproxen 500 MG Tablet PO (15:46)
[2023-07-20] MEDS: Naproxen 500 MG Tablet PO ×2 (00:02→08:12)
[2023-07-20] MEDS: Acetaminophen 500 MG Tablet 1000 MG PO ×2 (00:02→06:37)
[2023-07-20 01:59] VITALS: BP 118/76; PULSE 82; RESP 16; TEMP 36.8; O2SAT 99
[2023-07-20] MEDS: Enoxaparin 40 MG/0.4 ML Syringe SC (04:12)
[2023-07-20 08:07] VITALS: BP 116/64; PULSE 86; RESP 16; TEMP 36.8; O2SAT 98
--- NOTE | 2023-07-20 09:39 | HP.PCM.OB_ITS ---
HPI - General General Date of Admission: 07/18/23 HPI Narrative GUILLE MATOS, is a 32 F who presents for RLTCS. Maternal Data Information AGAPITO Calculator Estimated Delivery Date Method Current WG Current Estimate 08/01/23 Ultrasound #1 38w 2d [facility] Medical History (Updated 07/20/23 @ 09:[address] Elaina Huntley MD) Abnormal ultrasound Amenorrhea Asthma Cleft lip and palate, , affecting care of mother, antepartum Gestational diabetes mellitus Hypertension Infertility Intertriginous dermatitis associated with moisture PCOS (polycystic ovarian syndrome) Seasonal allergies Sinusitis Skin cyst Home Medications cetirizine 10 mg tablet (Zyrtec) 10 mg PO DAILY PRN allergy symptoms 02/02/20 [History Last Taken 07/17/23 22:00] flash glucose sensor (FreeStyle Lily 2 Sensor kit) #1 ea 01/11/23 [Rx Last Taken Unknown] aspirin 81 mg tablet,delayed release 81 mg PO DAILY 03/07/23 [History Last Taken 07/13/23 10:48] folic acid w/dha 1 tab PO DAILY 03/07/23 [History Last Taken 07/17/23 10:00] metformin 500 mg tablet,extended release 24 hr 1,000 mg (2 x 500 mg) PO BID gdm #360 tabs 03/07/23 [Rx Last Taken 07/17/23 22:00] vitamin#30 30 mg iron-10 mg iron-folic acid 1 mg-omg3 capsule 1 cap PO DAILY 03/07/23 [History Last Taken 07/17/23 10:00] pen needle, diabetic 32 gauge x 5/32 (BD Ultra-Fine Sophia Pen Needle) #100 ea 04/16/23 [Rx Last Taken Unknown] OneTouch Delica Plus Lancet 33 gauge (lancets) #300 ea 05/30/23 [Rx Last Taken Unknown] OneTouch Verio test strips (blood sugar diagnostic) #300 ea 05/30/23 [Rx Last Taken Unknown] insulin NPH isoph U-100 human 100 unit/mL (3 mL) subcutaneous pen (Humulin N NPH U-100 Insulin KwikPen) 20 unit subcut .in pm GDM 06/07/23 [History Last Taken 07/17/23 22:00] labetalol 100 mg tablet 100 mg PO BID High blood pressure 06/18/23 [History Last Taken 07/18/23 06:00] Allergy/AdvReac Type Severity Reaction Status Date / Time Penicillins Allergy Severe Rash Verified 07/18/23 10:41 cefdinir [From Omnicef] Allergy Anaphylaxis Verified 07/18/23 10:41 diazepam [From Valium] AdvReac Severe Other Verified 07/18/23 10:41 hydrocodone [From Vicodin] AdvReac Severe Other Verified 07/18/23 10:41 erythromycin base AdvReac Intermediate vomiting Verified 07/18/23 10:41 Family History Father Hypertension Mother Diabetes Grandfather Cancer Grandmother TIA (transient ischemic attack) Grandfather Heart disease Myocardial infarction Grandmother Rheumatoid arteritis Fibromyalgia Aunt HELLP (hemolytic anemia/elev liver enzymes/low platelets in ) Unknown Pre-eclampsia Sister Bleeding disorder, Onset Age: 21 essential thrombocythemia (blood cancer) Surgical History (Updated 07/20/23 @ 09:[address] 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 Date Name GA/Weeks Outcome Route Bth Weight Gen Labor Lgth Anesthesia Del Locatn Provider FOB 01/17/20 Fahad 37 live - full term 4lbs 3oz Female Guillaume Kelly Delivery Date: 01/17/20 Last Updated by: Mary Blackburn Diabetes, Pre-eclampsia, Breech Visit Details Expected Delivery Route/Plan plans repeat c/s - 38 weeks Plans Covid status: vaccinated, but not boosted Flu vaccine: vaccinated 01/11/23 Tdap vaccine: given Rhogam: [na LARC form signed: declined movement and labor precautions reviewed. Problem list reviewed and updated with the most current plan of care details and appropriate orders placed. Relevant counseling for the gestational age provided. Continue routine care and follow up unless otherwise noted in visit notes/problem list details OB Flowsheet Initial Weight: 242 lb Date -?-?-?-?-?-?-?-?-?-?-?-?- EGA Weight BP Urine Prot -?-?-?-?-?-?-?-?-?--?-?-?- Glucose FHR FuHt Pres Dilation -?-?-?-?-?-?-?-?-?-?-?-?- Effaced St Visit Note 12/14/22 -?-?-?-?-?-?-?-?-?-?-?-?- 7w 1d 242 lb 6 oz (+6 oz) 136/95 -?-?-?-?-?-?-?-?-?-?-?-?- 163 -?-?-?-?-?-?-?-?-?-?-?-?- LC- AGAPITO by 12/13 scan 08/01/2023. FHR 163. desires nipt. plans repeat c/s. on metformin for PCOS and labetolol for chronic htn. baseline labs ordered. 01/11/23 -?-?-?-?-?-?-?-?-?-?-?-?- 11w 1d 247 lb 6 oz (+5 lb 6 oz) 123/83 Negative -?-?-?-?-?-?-?-?-?-?-?-?- Negative 171 -?-?-?-?-?-?-?-?-?-?-?-?- MONICA pt has a his tory of insulin resistance on metformin. will order a continuous glucose monitor. on labetalol and h/o severe pre-e with IUGR> start baby asa. has baseline labs including NIPT today. MONICA pt has a history of insu loulou resistance on metformin. will order a continuous glucose monitor. on labetalol and h/o severe pre-e with IUGR> start baby asa. has baseline labs including NIPT today. CRL measuring 11 weeks 3 days. Flu shot today. 02/08/23 -?-?-?-?-?-?-?-?-?-?-?-?- 15w 1d 247 lb (+5 lb) 122/85 Negative -?-?-?-?-?-?-?-?-?-?-?-?- Negative 170 -?-?-?-?-?-?-?-?-?-?-?-?- SM- no vb crampi ng. SM- no vb cramping. elevated fasting sugars, recommend increasing metformin and referral to dr gloria 03/06/23 -?-?-?-?-?-?-?-?-?-?-?-?- 18w 6d 242 lb 6 oz (+6 oz) 114/77 Negative -?-?-?-?-?-?-?-?-?-?-?-?- Negative 143 -?-?-?-?-?-?-?-?-?-?-?-?- LC- no vb/crampi ng. has anatomy scan for tomorrow. stable sugars. genetic disorder discovered on daughter and , desires genetic counseling with [facility]. 04/05/23 -?-?-?-?-?-?-?-?-?-?-?-?- 23w 1d 244 lb (+2 lb) 120/78 Negative -?-?-?-?-?-?-?-?-?-?-?-?- Negative 150 -?-?-?-?-?-?-?-?-?-?-?-?- SM- no vb lof go od fm n oregular ctx discussed delivery planning 05/03/23 -?-?-?-?-?-?-?-?-?-?-?-?- 27w 1d 239 lb (-3 lb) 134/86 Negative -?-?-?-?-?-?-?-?-?-?-?-?- Negative 150 -?-?-?-?-?-?-?-?-?-?-?-?- SM- had some bor derline bps at home. no vb lof good fm no regular ctx had some illness. check preeclampsia labs today for borderline bps at home 05/17/23 -?-?-?-?-?-?-?-?-?-?-?-?- 29w 1d 240 lb (-2 lb) 115/72 Negative -?-?-?-?-?-?-?-?-?-?-?-?- Negative 150 32 -?-?-?-?-?-?-?-?-?-?-?-?- SM- no vb lof go od fm no regular ctx 05/31/23 -?-?-?-?-?-?-?-?-?-?-?-?- 31w 1d 238 lb (-4 lb) 115/69 Negative -?-?-?-?-?-?-?-?-?-?-?-?- Negative 145 -?-?-?-?-?-?-?-?-?-?-?-?- SM- sees [facility] diabetes control, no vb lof good fm no regular ctx 06/07/23 -?-?-?-?-?-?-?-?-?-?-?-?- 32w 1d 236 lb 8 oz (-5 lb 8 oz) 111/70 Negative -?-?-?-?-?-?-?-?-?-?-?-?- Negative 140 -?-?-?-?-?-?-?-?-?-?-?-?- SM- needs BPP du e to trouble staying on the monitor 06/14/23 -?-?-?-?-?-?-?-?-?-?-?-?- 33w 1d 239 lb (-3 lb) 101/69 Negative -?-?-?-?-?-?-?-?-?-?-?-?- Negative 140 -?-?-?-?-?-?-?-?-?-?-?-?- SM- intermittne black spots in vision, normal bps will get labs todayreviewed bps and some are low. reviewed preacutions 06/21/23 -?-?-?-?-?-?-?-?-?-?-?-?- 34w 1d 223 lb (-19 lb) 111/77 Negative -?-?-?-?-?-?-?-?-?-?-?-?- Negative 140 -?-?-?-?-?-?-?-?-?-?-?-?- SM- no vb crampi ng no lof good fm BS controlled 06/28/23 -?-?-?-?-?-?-?-?-?--?-?-?- 35w 1d 235 lb (-7 lb) 121/83 -?-?-?-?-?-?-?-?-?-?-?-?- 140 -?-?-?-?-?-?-?-?-?-?-?-?- SM- no vb lof go od fm no regular ctx 07/04/23 -?-?-?-?-?-?-?-?-?-?-?-?- 36w 0d 240 lb 4 oz (-1 lb 12 oz) 120/82 Negative -?-?-?-?-?-?-?-?-?-?-?-?- Negative 130 -?-?-?-?-?-?-?-?-?-?-?-?- -No VB, LOF or CTX. GBS done. NST reactive. 07/12/23 -?-?-?-?-?-?-?-?-?-?-?-?- 37w 1d 239 lb (-3 lb) 127/84 Negative -?-?-?-?-?-?-?-?-?-?-?-?- Negative 130 -?-?-?-?-?-?-?-?-?-?-?-?- SM- no vb lof go od fm n oregular ctx NST FHR Rate Baby A Baseline: 140 ROS Constitutional Constitutional: Reports systems reviewed and no addt'l complaints, except as documented ENT HEENT: Reports systems reviewed and no addt'l complaints, except as documented Cardiovascular Cardiovascular: Reports systems reviewed and no addt'l complaints, except as documented Respiratory/Chest Respiratory/Chest: Reports systems reviewed and no addt'l complaints, except as documented Gastrointestinal Gastrointestinal: Reports systems reviewed and no addt'l complaints, except as documented and nausea; Denies abdominal pain Genitourinary Genitourinary: Reports systems reviewed and no addt'l complaints, except as documented, contractions Details: present and frequency (regular ) and movement Details: present Musculoskeletal Musculoskeletal: Reports systems reviewed and no addt'l complaints, except as documented Integumentary Integumentary: Reports as per HPI Neurologic Neurologic: Reports systems reviewed and no addt'l complaints, except as documented Endocrine Endocrinology: Reports systems reviewed and no addt'l complaints, except as documented Vital Signs Vital Signs Vital Signs: 07/19/23 14:40 07/19/23 19:55 07/20/23 01:59 Temperature Temperature Source Temporal Temporal Temporal Pulse Rate Respiratory Rate Respiratory Depth Blood Pressure Blood Pressure Mean Blood Pressure Source Blood Pressure Position Blood Pressure Location Pulse Ox Oxygen Delivery Method 07/19/23 10:00 07/19/23 12:00 07/19/23 14:40 Temperature 98.1 F Temperature Source Temporal Pulse Rate 95 98 Respiratory Rate 18 16 16 Respiratory Depth Normal Normal Blood Pressure 123/84 H 117/68 Blood Pressure Mean 97 84 Blood Pressure Source Monitor Monitor Blood Pressure Position Semi-Fowlers Semi-Fowlers Blood Pressure Location Right Forearm Right Arm Pulse Ox 97 100 97 Oxygen Delivery Method Room Air Room Air Room Air 07/19/23 19:55 07/20/23 01:59 07/20/23 08:07 Temperature 98.0 F 98.2 F 98.3 F Temperature Source Temporal Temporal Temporal Pulse Rate 93 82 86 Respiratory Rate 16 16 16 Respiratory Depth Blood Pressure 134/84 H 118/76 116/64 Blood Pressure Mean 100 90 81 Blood Pressure Source Monitor Monitor Monitor Blood Pressure Position Semi-Fowlers Semi-Fowlers Semi-Fowlers Blood Pressure Location Right Arm Right Arm Right Arm Pulse Ox 98 99 98 Oxygen Delivery Method Room Air Room Air Room Air Weight Weight: 243 lb Body Mass Index (BMI) 41.7 Physical Exam Const alert, oriented x3 and healthy appearing Constitutional Narrative: uncomfortable with contractions HEENT normocephalic and moist oral mucous membranes Head and Scalp: atraumatic Neck full ROM, no lymphadenopathy, supple and thyroid normal General: trachea midline Thyroid: thyroid normal Lymph Lymphatic: no lymphadenopathy noted Chest inspection of chest normal Resp normal respiratory effort Cardio regular rate GI normal to inspection, nondistended, normoactive bowel sounds, soft to palpation and non-tender Inspection: gravid external exam normal Bimanual Exam - Vag & Uterus: uterus non-tender Manual OB Exam: estimated gestational size appropriate, presentation cephalic, dilated, effaced and station Extremity normal to inspection General Extremity: Negative for edema Skin no rashes or lesions noted Neuro deep tendon reflexes 2+ bilaterally Motor Exam: strength 5/5 throughout and clonus absent Psych mental status grossly normal Labs Labs Labs: Blood Type A POSITIVE Antibody Screen NEGATIVE Hct 31.2 % (37-47) L Hgb 10.2 g/dL (12.0-15.0) L Pap Smear Negative Obstetrics Ultrasound Syphilis Total Ab Non-reactive Rubella IgG Antibody Reactive (Nonreactive) Hep Bs Antigen Non-Reactive (Nonreactive) Hepatitis C Antibody Non-Reactive (Nonreactive) Chlamydia DNA (SHERICE) Negative (Negative) N.gonorrhoeae DNA (SHERICE) Negative (Negative) HIV 1&2 Antibody Non-Reactive (Nonreactive) Glucose 1 Hr 50 gm 152 mg/dL (70-140) H Gest Glucose Tolerance MG/DL Rhogam given: No Assessment & Plan (1) delivery delivered: COMMENT: JAEL Bowles PLAN: Plan proceed with RLTCS
--- NOTE | 2023-07-20 09:43 | EX.PCM.OBRPT ---
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 Jack catheter was placed. The patient was placed in the dorsal supine position with leftward tilt. Patient was prepped and draped in the normal sterile fashion. Pfannenstiel skin incision was made with the scalpel and carried through to the underlying layer of fascia with the scalpel. Fascia was nicked in the midline and the incision extended laterally. The rectus bellies were dissected off superiorly and inferiorly with out complication both sharply and bluntly. The peritoneum was entered digitally. The incision was stretched and a low transverse uterine incision was made with the scalpel. The infant's head was delivered atraumatically followed by the anterior and posterior shoulders without complication the rest of the infant delivered. The cord was clamped and cut and the was handed off to awaiting nurse. The placenta was delivered spontaneously immediately following and was noted to be intact and have a three-vessel cord. The uterus was exteriorized cleared of all clots and debris, and the incision was closed in a single layer closure using #1 Monocryl. The ovaries and fallopian tubes were noted to be within normal limits. Patient had desired sterilization and was counseled preoperatively regarding irreversibility and permanency. Therefore bilateral fallopian tubes were elevated and transected across using a LigaSure device starting proximally to distally without complication the entire fallopian tubes were removed. The uterus was returned to the maternal abdomen and gutters were cleared of all clots and debris. hemoblast used for additional hemostasis. The peritoneum was closed with 3-0 Monocryl in a running fashion. Gloves were changed prior to fascial closure. Fascia was closed with 0 PDS in a running fashion. Subcutaneous tissue was copiously irrigated and the skin was closed with 3-0 Monocryl in a subcuticular fashion. Mepilex dressing was applied without complication. Patient was taken to recovery in stable condition. Amniotic Membrane Rupture Type: Artificial Amniotic Fluid Description: Clear Placenta Disposition: [facility] Cord Vessel Description: 3 Vessels Delayed Cord Clamping: Yes Complications Risks of Surgery Discussed w/Patient: Bleeding, Infection, Need for Future C-Sections and Injury to surrounding structure(s) including bowel and bladder Vaginal Delivery Complication Complications: None Admit VTE Documentation VTE Present on Admission: No VTE Mechan Device Prophylaxis: SCD's Multi Select Codes Urinary/Genital Urinary/Genital CPT Codes: 93999 C/S+TL and 44349 Delivery [facility]
--- NOTE | 2023-07-20 09:48 | PCM.PN.OB ---
Subjective Subjective Patient doing well without complaints. Tolerating PO. Ambulating and voiding without difficulty. feeding well. Denies chest pain, shortness of breath, calf pain/swelling, fevers, chills, lightheadedness. Objective Data Objective Data Vital Signs: Vital Signs Temp Pulse Resp BP Pulse Ox O2 Del Method 98.3 F 86 16 116/64 98 Room Air 07/20/23 08:07 07/20/23 08:07 07/20/23 08:07 07/20/23 08:07 07/20/23 08:07 07/20/23 08:07 Oxygen Delivery Method Room Air Weight: 243 lb Body Mass Index (BMI) 41.7 Intake & Output: Intake and Output for Last 24 Hours 07/18/23 07/19/23 07/20/23 23:59 23:59 23:59 Intake Total 3573.42 / 3573.42 Output Total 1580 / 1580 800 / 800 Balance 1992.42 / 1992.42 -800 / -800 Lab / Micro Data 07/19/23 05:30 ROS Constitutional Constitutional: Reports systems reviewed and no addt'l complaints, except as documented Cardiovascular Cardiovascular: Reports systems reviewed and no addt'l complaints, except as documented Respiratory/Chest Respiratory/Chest: Reports systems reviewed and no addt'l complaints, except as documented Gastrointestinal Gastrointestinal: Reports systems reviewed and no addt'l complaints, except as documented Physical Exam Const alert, oriented x3 and no apparent distress HEENT Head and Scalp: atraumatic Resp normal respiratory effort GI soft to palpation and non-tender Inspection: incision intact, healing well and drainage (none) Bimanual Exam - Vag & Uterus: uterus non-tender Uterus Palpation: uterus fundus firm (below Umbilicus) Assessment & Plan (1) delivery delivered: COMMENT: JAEL Bowles PLAN: Plan s/p LTCS PPD # 2 1. routine post care 2. breast feeding- support given 3. rh positive 4. rubella immune
--- NOTE | 2023-07-20 09:49 | DCINST_ITS ---
Discharge Instructions Diet Discharge Diet: No restrictions Activity Discharge Activity: May Not Drive (for 2 weeks or while taking narcotic pain medications.), May Shower and May Take a Tub Bath (in 7 days) May shower in (days): 0 May resume sexual activity in: 4-6 weeks Weight Bearing Status: Full weight bearing Lifting Restrictions: 20 pounds Dressing / Incision Call your doctor if your incision/area has: Continuous Slow Oozing, Sudden Increased Bleeding, Increased Pain/ Swelling, Increased Redness and Foul Smelling Discharge Call your doctor if you observe: Fever of 101 or Higher and Using more than 1 pad per hour (for 2 hours) Suture Line Care: Avoid Pulling/Pushing and Avoid Pinching/Bending Cleanse incision/area with: Soap & Water and Keep Dressing Clean & Dry Follow Up Care Please Follow Up With: Elaina Huntley MD When: Call [phone] to make an appointment for an incision check in 1-2 weeks. Test Results: Test results from this visit will be discussed in further detail at your follow- up appointment, if applicable. Discharge Plan Admission Admit Date/Time: 07/18/23 09:35 Attending Provider: Elaina Huntley Primary Care Provider: Care Physician,Theresa Primary Discharge Orders/Prescriptions Prescriptions: New oxycodone-acetaminophen [Percocet] 5-325 mg tablet 1 tab PO Q6H PRN (Reason: pain) 7 Days Qty: 20 0RF naproxen [naproxen] 500 mg tablet 500 mg PO BID PRN PRN (Reason: Pain) Qty: 30 1RF No Action cetirizine [Zyrtec] 10 mg tablet 10 mg PO DAILY PRN (Reason: allergy symptoms) (DME) FreeStyle Lily 2 Sensor Kit See Rx Instructions .Route Qty: 1 0RF Rx Instructions: As directed PNV #[id number] acid-[id number] 30 mg iron-10 mg iron-1 mg capsule 1 cap PO DAILY folic acid w/dha 800 mcg 1 tab PO DAILY aspirin 81 mg tablet,delayed release (DR/EC) 81 mg PO DAILY metformin 500 mg tablet extended release 24 hr 1,000 mg PO BID Qty: 360 1RF Humulin N NPH Insulin KwikPen 100 unit/mL (3 mL) insulin pen 20 unit subcut .in pm Patient Comments: pt takes 20 units at hs and 10 units in the am Rx Instructions: 10 units in am labetalol 100 mg tablet 100 mg PO BID Patient Comments: She stepped me down to this dose (DME) pen needle, diabetic [BD Ultra-Fine Sophia Pen Needle] 32 gauge x needle See Rx Instructions .ROUTE .MEDSUPPLY Qty: 100 4RF Rx Instructions: bid (DME) lancets [OneTouch Delica Plus Lancet] 33 gauge misc See Rx Instructions .Route Qty: 300 1RF Rx Instructions: 4 times daily (DME) OneTouch Verio test strips Strip See Rx Instructions .Route Qty: 300 1RF Rx Instructions: 4 times daily Referrals / Follow Up: Care Physician,No Primary [Primary Care Provider] -
--- NOTE | 2023-09-24 08:09 | NURSING ---
Edited /para for accuracy
== END 2023-07-20 10:30 | disposition home or self-care (01) | DRG 783 ==
PROVIDERS: Admitting Provider Obstetrics & Gynecology; Visit Provider Obstetrics & Gynecology
PROC: (CPT 59514; principal; 2023-07-18 11:45)
DX: O34.211 Maternal care for low transverse scar from previous cesarean delivery (principal); O24.32 Unspecified pre-existing diabetes mellitus in childbirth; O10.02 Pre-existing essential hypertension complicating childbirth; O99.214 Obesity complicating childbirth; Z79.4 Long term (current) use of insulin; Z30.2 Encounter for sterilization; Z37.0 Single live birth; O99.824 Streptococcus B carrier state complicating childbirth; Z79.84 Long term (current) use of oral hypoglycemic drugs; Z79.899 Other long term (current) drug therapy; Z3A.37 37 weeks gestation of pregnancy
CPT/HCPCS: 59050; 82962; 85025; 85027; 86780; 86850; 86900; 86901; 88302; 99221; J7120; A4216; G0378; J2405

== ENCOUNTER → 2023-08-26 | Outpatient (CLI) | payer OTHER, SELFPAY ==
[2023-08-26 09:58] LABS: Absolute Neutrophil Count 4.3 X10^3/uL (2.0-7.7); Basophil# 0.03 X10^3/uL; Basophil% 0.4 % (0-1); Eosinophil# 0.26 X10^3/uL; Eosinophils% 3.5 % (0-5); Hematocrit 42.4 % (37-47); Hemoglobin 13.5 g/dL (12.0-15.0); Lymphocyte % 31.3 % (19-41); Mean Corp Hgb Conc 31.8 g/dL (32-36); Mean Corpuscular Hgb 25.7 pg (27.0-32.0); Mean Corpuscular Volume 80.6 fL (81-99); Mean Platelet Vol. 9.8 fl (6.2-12.0); Monocyte# 0.47 X10^3/uL; Monocyte% 6.4 % (0-10); NRBC Flagged by Analyzer 0 % (0-5); Neutrophil # 4.28 X10^3/uL (2.7-7.7); Neutrophil % 58.1 % (47-70); Platelet Count 241 K/mm3 (150-450); RBC Distribution Width SD 41.1 fl (35.1-43.9); Red Blood Count 5.26 M/mm3 (4.2-5.4); White Blood Count 7.4 K/mm3 (4.4-11.0)
[2023-08-26 10:15] LABS: ALB/GLOB Ratio 0.9 RATIO (0.9-2.4); AST(SGOT) 21 U/L (15-37); Alanine Aminotransfer ALT/SGPT 46 U/L (13-56); Albumin, Serum 3.9 g/dL (3.2-5.0); Alkaline Phosphatase 122 U/L (45-117); Anion Gap 8 (5-15); BUN 29 mg/dL (7-18); Calcium,Total 9.4 mg/dL (8.5-10.1); Chloride 107 mmol/L (98-107); Creatinine, Serum 0.83 mg/dL (0.55-1.02); EST Glomerular Filtration Rate 85 mL/min (>60); Est Glom Filt Rate - Afr Amer 103 mL/min (>60); Globulin 4.2 g/dL (2.2-4.2); Glucose 100 mg/dL (74-106); Potassium 4.1 mmol/L (3.5-5.1); Protein, Total 8.1 g/dL (6.4-8.2); Sodium Level 139 mmol/L (136-145); Thyroid Stim Hormone (TSH) 1.49 uIU/mL (0.358-3.74)
[2023-08-26 12:50] LABS: Hemoglobin A1c 5.2 % (3.8-5.6)
== END | disposition home or self-care (01) ==
LOC: PAVLAB 09:32
PROVIDERS: PCP Nurse Practitioner; Referring Provider Nurse Practitioner; Visit Provider Nurse Practitioner
DX: O24.319 Unspecified pre-existing diabetes mellitus in pregnancy, unspecified trimester (principal); O16.9 Unspecified maternal hypertension, unspecified trimester; Z3A.00 Weeks of gestation of pregnancy not specified; I10 Essential (primary) hypertension
CPT/HCPCS: 36415; 80053; 83036; 84443; 85025

== ENCOUNTER → 2023-09-02 | Outpatient (CLI) | payer OTHER, SELFPAY ==
[2023-09-06 10:09] LABS: HPV APTIMA, High Risk Negative (Negative)
== END | disposition home or self-care (01) ==
LOC: LABSPEC 16:29
PROVIDERS: PCP Nurse Practitioner; Referring Provider Obstetrics & Gynecology; Visit Provider Obstetrics & Gynecology
DX: Z12.4 Encounter for screening for malignant neoplasm of cervix (principal)
CPT/HCPCS: 87624; 88175; G0145

== ENCOUNTER 2024-07-22 09:36 | Emergency (ER) | payer OTHER, SELFPAY ==
[2024-07-22 09:37] VITALS: BP 143/96; PULSE 95; RESP 16; TEMP 36.9; O2SAT 100; BMI 44.6
--- NOTE | 2024-07-22 09:48 | ED.VIS.FEGU ---
HPI HPI - Female History of Present Illness Chief Complaint: Vag Bleeding Detail of Chief Complaint: Vaginal bleeding that started last evening Informant: patient Pain Pain: Positive for Pelvic Pain; Negative for Vulvar Pain or Vaginal Pain Onset: Yesterday Context: Sudden Onset Timing: Continuous and Waxes and wanes Quality: Positive for Cramping Location: RLQ, LLQ and Back (Over the sacral lumbar region) Current Severity: Mild Maximum Severity: Moderate Worsened by: Movement and [place] Relieved by: Remaining Still Bleeding Issue: Positive for Vaginal bleeding and Passing clots Onset: Yesterday Context: Sudden Onset Timing: Continuous Current Severity: Heavy (Passing golf ball size clots.) Current pads/hr: 1 Maximum Severity: Heavy Associated Symptoms Associated Symptoms: Positive for - (Patient is not had a menstrual period since June 2023.); Negative for Dysuria, Frequency, Urgency or Hematuria Sexually: Positive for Active Control: BTL Narrative Narrative: Patient is a 33-year-old female. She is bleeding heavily. She is going through a super tampon every 90 minutes. She denies orthostatic symptoms. Denies dyspnea or dyspnea on exertion. She does endorse cramping lower bilateral pain and pain in the sacral lumbar region. She does have history of polycystic ovarian syndrome. BMI is 44.7. She is sexually active. She is status post tubal ligation after the of her son last year. She is not on control pills presently. She was when she was younger because of painful menses with heavy bleeding. Patient denies fever, chills night sweats. Patient denies urologic symptoms. Patient denies bruising easily. She is on no antithrombotic or anticoagulant. She did contact her direct care professional, Dr. Elaina Huntley. Office recommended she come to the emergency room because of the amount of bleeding. Prior similar symptoms: No Recent Illness/Hospitalization: No PFSH PFSH Medical History PCOS (polycystic ovarian syndrome) GBS (group B Streptococcus carrier), +RV culture, currently delivery delivered Asthma Amenorrhea Infertility Hypertension Intertriginous dermatitis associated with moisture Sinusitis Gestational diabetes mellitus Abnormal ultrasound Cleft lip and palate, , affecting care of mother, antepartum Skin cyst Seasonal allergies Home Medications ?Medication ?Instructions ?Recorded ?Last Taken ?Type cetirizine 10 mg tablet (Zyrtec) 10 mg PO QHS allergy symptoms 02/02/20 07/21/24 History vitamin#30 30 mg iron-10 1 cap PO DAILY SUPPLEMENT 03/07/23 07/22/24 History mg iron-folic acid 1 mg-omg3 capsule labetalol 100 mg tablet 100 mg PO BID #180 tabs 04/10/24 07/22/24 Rx fluticasone propionate 50 1 spray intranasal QHS PRN allergy 07/22/24 07/21/24 History mcg/actuation nasal symptoms spray,suspension (24 Hour Allergy Relief) megestrol 20 mg tablet 20 mg PO DAILY #30 tabs 07/22/24 Unknown Rx Allergy/AdvReac Type Severity Reaction Status Date / Time Penicillins Allergy Severe Rash Verified 07/22/24 09:56 cefdinir (From Omnicef) Allergy Anaphylaxis Verified 07/22/24 09:56 diazepam (From Valium) AdvReac Severe Other Verified 07/22/24 09:56 hydrocodone (From Vicodin) AdvReac Severe Other Verified 07/22/24 09:56 erythromycin base AdvReac Intermediate vomiting Verified 07/22/24 09:56 Family History Father Hypertension Mother Diabetes Grandfather Cancer Grandmother TIA (transient ischemic attack) Grandfather Heart disease Myocardial infarction Grandmother Rheumatoid arteritis Fibromyalgia Aunt HELLP (hemolytic anemia/elev liver enzymes/low platelets in ) Unknown Pre-eclampsia Sister Bleeding disorder, Onset Age: 21 essential thrombocythemia (blood cancer) Surgical History H/O tubal ligation History of History of wisdom tooth extraction, class IV edentulism H/O nasal septoplasty Social History adopted: No household members: spouse housing: apartment number of children: 2 current occupational status: employed 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 pets and animals: Yes (2) pets and animals: dog(s) history of recent travel: No sexually active: Yes Smoking Status: Never smoker second hand exposure: No alcohol intake: never substance use type: does not use diet: low salt caffeine: Yes (2) Type: coffee frequency: 1-2 times per week nick/sikh: Holiness seatbelt use: always do you feel safe at home: Yes additional social history: - Robin (ODMARY ANNE) KATHI ROS ED Constitutional Constitutional ED: Denies chills, fever(s), subjective or sweats Eyes Eyes: Denies blurry vision, change in vision or diplopia Cardiovascular Cardiovascular: Denies chest pain or palpitations Respiratory/Chest Respiratory/Chest: Denies cough, dyspnea or dyspnea on exertion Gastrointestinal Gastrointestinal: Denies abdominal pain, nausea or vomiting Genitourinary Genitourinary ED: Denies dysuria, hematuria or urinary frequency Musculoskeletal Musculoskeletal: Denies neck pain Integumentary Denies rash Hematologic/Lymphatic Hematologic/Lymphatic: Denies easy bleeding or easy bruising EXAM Physical Exam Const Vital Signs: 07/22/24 09:37 07/22/24 11:36 07/22/24 13:00 Temperature 98.4 F Temperature Source Oral Pulse Rate 95 88 78 Respiratory Rate 16 18 18 Blood Pressure 143/96 H 124/74 H 135/81 H Blood Pressure Mean 111 90 99 Pulse Ox 100 98 99 Oxygen Delivery Method Room Air Room Air Room Air Positive well nourished and well developed Constitutional Narrative: Vitals are remarkable for slightly elevated blood pressure. BMI is elevated. General Appearance ED: well developed; Negative for pallor HEENT HEENT Narrative: Head is atraumatic normocephalic. Eyes PERRL and EOMs intact bilaterally General Eye ED: Negative for pale conjunctiva Neck supple Resp normal respiratory effort and clear to auscultation bilaterally Cardio regular rate, regular rhythm, S1 normal heart sound, no murmurs and no JVD Back/Spine no CVA tenderness Extremity normal to inspection and full ROM Neuro oriented x3 and CN's II-XII intact bilaterally Sensorium / Orientation: alert Psych Mood & Affect: anxious Skin no rashes or lesions noted and no wounds General Skin Exam: Negative for jaundice or pallor Rashes: No rashes noted MDM MDM MDM Narrative Medical decision making narrative: Patient with heavy abnormal vaginal bleeding. Will obtain CBC to assess H&H and platelet count. Serum test was ordered as well. Will need to perform pelvic exam and determine if an ultrasound is indicated depending on laboratory results and findings on pelvic exam. History & Record Review Additional record(s) reviewed:: Prior outpatient record (Internal medicine note was reviewed. On April 10, 2024 for 3-month follow-up. Assessment was polycystic ovarian syndrome, hypertension, obesity (BMI 30-39.9). She had blood work done at that time. Note was authored by physician patient services assistant Jesse Pinto), Prior labs and Other (FLOAT [facility]PERATOR office visit for postcoital bleeding. She was seen by nurse practitioner Darshana Huerta. Today's bleeding is significantly more after reading through the office note.) Lab Data Labs: Laboratory Results - last 24 hr 07/22/24 10:00 WBC 8.9 RBC 5.24 Hgb 14.9 Hct 42.7 MCV 81.5 MCH 28.4 MCHC 34.9 RDW Std Deviation 36.5 RDW Coeff of Edward 12.5 Plt Count 271 MPV 9.5 Immature Gran % (Auto) 0.400 Neut % (Auto) 67.5 Lymph % (Auto) 24.5 Fajardo % (Auto) 5.5 Eos % (Auto) 1.7 Baso % (Auto) 0.4 Absolute Neuts (auto) 6.0 Absolute Lymphs (auto) 2.18 Nucleated RBC % 0 HCG, Quant < 1 Radiography Diagnostic Testing: Clinical Impression(s) from Imaging Studies Transvaginal US 07/22/24 11:30 IMPRESSION: The ovaries meet the criteria for polycystic ovary syndrome. The endometrium measures 0.5 cm. Reading Location: [facility] Management Discussion w/another healthcare provider: Soda Tester (Spoke with Dr. Crissy Sal who recommended Megace 20 mg once daily. Patient is to call office for appointment later this month.) Treatment and Re-Evaluation Narrative: There is Carrizales of blood in the vaginal vault. Blood is coming from the os. The cervix appears normal. The vaginal Koza appears normal. Bimanual exam is limited due to body habitus. I will obtain ultrasound of the pelvic organs. Will then consult Dr. Elaina Huntley. Discharge Plan Triage Chief Complaint: Vag Bleeding ED Provider: Abram Watters Dx/Rx/DC Orders Clinical Impression: Abnormal vaginal bleeding, PCOS (polycystic ovarian syndrome), Hypertension, Obesity (BMI 30-39.9) Instructions: ED Dysfunctional Uterine Bleeding Prescriptions: New megestrol 20 mg tablet 20 mg PO DAILY Qty: 30 0RF No Action cetirizine [Zyrtec] 10 mg tablet 10 mg PO QHS PNV #[id number] acid-omega3 30 mg iron-10 mg iron-1 mg capsule 1 cap PO DAILY labetalol 100 mg tablet 100 mg PO BID Qty: 180 1RF fluticasone propionate [24 Hour Allergy Relief] 50 mcg/actuation spray,suspension 1 spray intranasal QHS PRN (Reason: allergy symptoms) Rx Instructions: administer into each nostril Primary Care Provider: Marivel Danielson Referrals: Marivel Danielson MD [Primary Care Provider] - Print Language: Irish Disposition Disposition: Home, Self Care
[2024-07-22 10:11] LABS: Absolute Lymphocyte Count 2.18 X10^3/uL (0.83-4.51); Basophil# 0.04 X10^3/uL; Basophil% 0.4 % (0-1); Eosinophil# 0.15 X10^3/uL; Eosinophils% 1.7 % (0-5); Hematocrit 42.7 % (37-47); Hemoglobin 14.9 g/dL (12.0-15.0); Lymphocyte # 2.18 X10^3/ul (0.83-4.51); Lymphocyte % 24.5 % (19-41); Mean Corp Hgb Conc 34.9 g/dL (32-36); Mean Corpuscular Hgb 28.4 pg (27.0-32.0); Mean Corpuscular Volume 81.5 fL (81-99); Mean Platelet Vol. 9.5 fl (6.2-12.0); Monocyte# 0.49 X10^3/uL; Monocyte% 5.5 % (0-10); NRBC Flagged by Analyzer 0 % (0-5); Neutrophil # 5.99 X10^3/uL (2.7-7.7); Neutrophil % 67.5 % (47-70); Platelet Count 271 K/mm3 (150-450); RBC Distribution Width CV 12.5 % (11.6-14.6); RBC Distribution Width SD 36.5 fl (35.1-43.9); Red Blood Count 5.24 M/mm3 (4.2-5.4); White Blood Count 8.9 K/mm3 (4.4-11.0)
[2024-07-22 10:52] LABS: hCG Titer Quant., Serum < 1 mIU/mL (<9 non-preg)
--- NOTE | 2024-07-22 11:30 | US_ITS ---
PROCEDURE: TRANSVAGINAL NON- 07/22/2024 REASON FOR EXAM: HEAVY VAGINAL BLEEDING WITH CLOTS, HCG NEGATIVE TECHNIQUE: Transabdominal and transvaginal pelvic ultrasound COMPARISON: None FINDINGS: The uterus measures 8.1 x 5.2 x 3.9 cm and appears anteverted, and retroflexed. There is no uterine fibroid or mass. The endometrium measures 0.5 cm. Nabothian cysts are noted. The right ovary measures 3.4 x 3.3 x 2.8 cm, volume = 16 cc. The left ovary measures 3.6 x 4.2 x 3.2 cm, volume = 25 cc. There are greater than 10 subcentimeter follicles visible on the left ovary. There is no adnexal mass or free fluid. US/Transvaginal Non- IMPRESSION: The ovaries meet the criteria for polycystic ovary syndrome. The endometrium measures 0.5 cm. Reading Location: [facility]
[2024-07-22 11:36] VITALS: BP 124/74; PULSE 88; RESP 18; O2SAT 98
[2024-07-22 13:00] VITALS: BP 135/81; PULSE 78; RESP 18; O2SAT 99
[2024-07-22 14:11] VITALS: BP 131/78; PULSE 81; RESP 18; TEMP 36.6; O2SAT 99
== END 2024-07-22 14:12 | disposition home or self-care (01) ==
PROVIDERS: Emergency Provider Emergency Medicine; PCP Internal Medicine; Visit Provider Emergency Medicine
DX: E28.2 Polycystic ovarian syndrome (principal); Z68.41 Body mass index [BMI] 40.0-44.9, adult; I10 Essential (primary) hypertension; E66.9 Obesity, unspecified; J45.909 Unspecified asthma, uncomplicated; Z79.899 Other long term (current) drug therapy
CPT/HCPCS: 76830; 84702; 85025; 99283

== ENCOUNTER → 2024-09-03 | Outpatient (CLI) | payer OTHER, SELFPAY ==
[2024-09-03 11:10] LABS: Hemoglobin A1c 5.4 % (<=5.6)
[2024-09-03 11:33] LABS: Glucose 103 mg/dL (70-99); Vitamin D,25 Hydroxy 32.9 ng/mL (30-100)
[2024-09-03 12:31] LABS: Cholesterol 193 mg/dL (<=200); High Density Lipoprotein 38 mg/dL; Low Density Lipoprotein Calc. 125 mg/dL; Triglycerides 150 mg/dL; Very Low Density Lipoprotein 30 mg/dL (5-40); cholesterol:hdl ratio screen 5.03
== END | disposition home or self-care (01) ==
LOC: MTLAB 08:39
PROVIDERS: PCP Internal Medicine; Referring Provider Obstetrics & Gynecology; Visit Provider Obstetrics & Gynecology
DX: O24.319 Unspecified pre-existing diabetes mellitus in pregnancy, unspecified trimester (principal); O16.9 Unspecified maternal hypertension, unspecified trimester; Z13.1 Encounter for screening for diabetes mellitus; Z13.220 Encounter for screening for lipoid disorders; Z13.29 Encounter for screening for other suspected endocrine disorder; Z3A.00 Weeks of gestation of pregnancy not specified
CPT/HCPCS: 36415; 80061; 82306; 82947; 83036; 84443

== ENCOUNTER → 2024-09-12 | Outpatient (CLI) | payer OTHER, SELFPAY ==
[2024-09-12 08:24] LABS: Hematocrit 41.5 % (37-47); Hemoglobin 14.4 g/dL (12.0-15.0); Immature Granulocytes Count 0.040 X10^3/uL (0.0-0.0); Mean Corp Hgb Conc 34.7 g/dL (32-36); Mean Corpuscular Volume 80.1 fL (81-99); Mean Platelet Vol. 9.6 fl (6.2-12.0); NRBC Flagged by Analyzer 0 % (0-5); Platelet Count 278 K/mm3 (150-450); RBC Distribution Width CV 12.3 % (11.6-14.6); RBC Distribution Width SD 35.7 fl (35.1-43.9); Red Blood Count 5.18 M/mm3 (4.2-5.4); White Blood Count 9.1 K/mm3 (4.4-11.0)
[2024-09-12 09:08] LABS: Cholesterol 185 mg/dL (<=200); Low Density Lipoprotein Calc. 125 mg/dL; Triglycerides 78 mg/dL; Very Low Density Lipoprotein 16 mg/dL (5-40); cholesterol:hdl ratio screen 4.17
[2024-09-12 09:42] LABS: AST(SGOT) 22 U/L (<=31); Alanine Aminotransfer ALT/SGPT 21 U/L (<=34); Albumin, Serum 4.5 g/dL (3.5-5.0); Alkaline Phosphatase 106 U/L (35-104); Anion Gap 15 (5-15); BUN 15 mg/dL (4-19); BUN/Creat Ratio 22.2 RATIO (10-20); CORTISOL AM 0.51 ug/dL (6.02-18.40); Calcium,Total 9.5 mg/dL (7.6-11.0); Carbon Dioxide 18.4 mmol/L (21.0-32.0); Chloride 104 mmol/L (98-108); Globulin 3.3 g/dL (2.2-4.2); Glucose 122 mg/dL (70-99); Potassium 4.2 mmol/L (3.3-5.1)
== END | disposition home or self-care (01) ==
LOC: LAB 07:59
PROVIDERS: Physician Assistant; PCP Internal Medicine; Referring Provider Internal Medicine; Visit Provider Internal Medicine
DX: I10 Essential (primary) hypertension (principal); E66.01 Morbid (severe) obesity due to excess calories; Z68.42 Body mass index [BMI] 45.0-49.9, adult; E28.2 Polycystic ovarian syndrome; N93.9 Abnormal uterine and vaginal bleeding, unspecified
CPT/HCPCS: 36415; 80053; 80061; 82533; 84443; 85025

== ENCOUNTER → 2024-12-11 | Outpatient (CLI) | payer OTHER, SELFPAY ==
--- NOTE | 2024-12-11 08:30 | EMB_PTH ---
PATIENT: GUILLE MATOS LOC: [facility] U#:[id number] AGE/SX: 34/F ROOM: RE12/11/[address]: Dr. Crissy Mcneal DO : 1990 BED: DIS: 12/11/2024 SPEC #: [id number] RECD: 12/11/24 12:26 STATUS: MARY REMaricruz #: [id number] IRON: 12/11/24 08:[address]: Crissy Mcneal DEPT: SURGICAL PATHOLOGY RECD BY: Kike Jean ENTERED: 12/11/24 13:36 SP TYPE: ENDOM BX/C JAE DR: Dr. Marivel Danielson MD Tissues: A - Endometrium, NOS Procedures: Surgery Specimen Level IV HEADER OPERATION: Endometrial biopsy PRE-OP DIAGNOSIS: Abnormal uterine bleeding TISSUE SUBMITTED: A- Endometrial lining MICROSCOPIC DIAGNOSIS A. Endometrium, biopsy: * Inactive endometrium with focal area suggestive of polyp formation MICROSCOPIC DESCRIPTION Slides are reviewed. GROSS DESCRIPTION A. Received in formalin labeled the patient's name and date of is a 2.8 x 1.8 x 0.2 cm aggregate of mucoid material and flecks of pink-red tissue fragments. Entirely submitted in 1 cassette. Entirety of the specimen may not survive processing. DC 12/11/2024 CPT:85560
--- OUTSIDE RECORDS SUMMARY | 2024-12-11 12:37 | XMS RPT_ITS | CCD ---
Author Organization [facility] Care Team Providers Care In Home Sales Consultant Name Role Phone LishaJuani calderon Unavailable Amador Addison Attending Unavailable LishaJuani Primary Care Provider Unavailable Primary Care Provider Unavailabl e Lisha Juani CORNELL Primary Care Provid er Lisha Juani CORNELL Primary Care Provid er LISHA, JUANI KENNEDY Primary Care Unavail able HENRRY BARAHONA Attending Unavailable Lisha CHECK TOTALER, Juani Kennedy Primary Care Provid er Lisha Juani CORNELL Unavailable LISHA, JUANI KENNEDY Admitting Unavail able LISHA, JUANI KENNEDY Primary Care Unavail able LISHA, JUANI KENNEDY Primary Care Unavail able LISHA, JUANI KENNEDY Admitting Unavail able LISHA, JUANI KENNEDY Primary Care Unavail able ELEUTERIO CASTANO Admitting Unavailable LISHA, JUANI KENNEDY Primary Care Unavail able Lisha CHECK TOTALER, Juani Kennedy Primary Care Provid er Lisha Juani CORNELL Unavailable LISHA, JUANI KENNEDY Attending Unavail able LISHA, JUANI KENNEDY Primary Care Unavail able LISHA, JUANI KENNEDY Attending Unavail able LISHA, JUANI MARCIA Primary Care Unavail able LISHA, JUANI MARCIA Primary Care Unavail able CAROLINA ACEVES Attending Unavailable LISHA, JUANICourtney KINGMARCIA Primary Care Unavail able MOROCCO JR., MCKENNA Attending Unavailable LISHA, JUANI KENNEDY Referring Unavail able LISHA, JUANICourtney KINGMARCIA Admitting Unavail able LISHA, JUANI MARCIA Primary Care Unavail able MOROCCO JR., MCKENNA Attending Unavailable LISHA, JUANI MARCIA Attending Unavail able LISHA, JUANI MARCIA Primary Care Unavail able Dr. Valeria Aguilera Primary Care Provider [phone] Dr. Valeria Aguilera Referring Provider [phone] Dr. Elaina Castanon Attending Provider [phone] ALVINO Kohli Attending Provider Care Physician, No Primary Primary Care Provider Unavailable Care Physician, No Primary Referring Provider Un available Dr. Crissy Mcneal Attending Provider [phone] Care Physician, No Primary Primary Care Provider Unavailable Care Physician, No Primary Referring Provider Un available Dr. Elaina Castanon Attending Provider [phone] ALVINO Kohli Attending Provider [phone] Dr. Ian Mcdonald Attending Provider Care Physician, No Primary Primary Care Provider Unavailable Care Physician, No Primary Referring Provider Un available Care Physician, No Primary Primary Care Provider Unavailable Care Physician, No Primary Referring Provider Un available Dr. Elaina Castanon Attending Provider [phone] ALVINO Kohli Attending Provider [phone] Dr. Ian Mcdonald Attending Provider Care Physician, No Primary Primary Care Provider Unavailable Care Physician, No Primary Referring Provider Un available Dr. Elaina Castanon Attending Provider [phone] Dr. Crissy Mcneal Attending Provider [phone] Dr. Crissy Mcneal Other Provider ALVINO Gaytan Attending Provider [phone] ALVINO Gaytan Referring Provider [phone] ALVINO Gaytan Other Provider Care Physician, No Primary Primary Care Provider Unavailable Care Physician, No Primary Referring Provider Un available Oscar BOTELLO, 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-C Coco Attending Provider [phone] Dr. Elaina Castanon Admit Provider [phone] Dr. Elaina Castanon Other Provider [phone] DOC, MISC Primary Care Unavailable CRISSY SAL Referring Unavailab le VANDEVELDECRISSY Attending Unavailab le DOC, MISC Primary Care Unavailable SEVEN RODAS Attending Unavailable CRISSY SAL Referring Unavailab le CERDAYUDITH REESE Attending Unavailable CRISSY SAL Referring Unavailab le DOC, MISC Primary Care Unavailable YUDITH CERDA F Attending Unavailable CRISSY SAL Referring Unavailab le DOC, MISC Primary Care Unavailable FREDERICK JUSTICE Attending Unavailable DOC, MISC Primary Care Unavailable CERDAYUDITH CANTU F Attending Unavailable CRISSY SAL Referring Unavailab le DOC, MISC Primary Care Unavailable KONSTANTIN JONES Attending Unavailable REFERRED, SELF Referring Unavailable DOC, MISC Primary Care Unavailable KONSTANTIN JONES Attending Unavailable REFERRED, SELF Referring Unavailable CERDAYUDITH CANTU F Attending Unavailable CRISSY SAL Referring Unavailab le DOC, MISC Primary Care Unavailable DOC, MISC Primary Care Unavailable YUDITH CERDA Attending Unavailable CRISSY SAL Referring Unavailab le DOC, MISC Primary Care Unavailable CERDAYUDITH F Attending Unavailable CRISSY SAL Referring Unavailab le DOC, MISC Primary Care Unavailable YUDITH CERDA Attending Unavailable CRISSY SAL Referring Unavailab le DOC, MISC Primary Care Unavailable YUDITH CERDA Attending Unavailable ELAINA CASTANON Referring Unavailabl e DOC, MISC Primary Care Unavailable YUDITH CERDA Attending Unavailable ELAINA CASTANON Referring Unavailabl e Manuel 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-CSidney Referring Provider Jesse Mckeon Attending Provider Jagjit JOSHI, Dr. Orta Primary Care Provider [phone] Jagjit JOSHI, Dr. Orta Referring Provider Jordan Cherry Attending Provider Duong JOSHI, Dr. Valverde Emergency Provider Duong JOSHI, Dr. Valverde Attending Provider Ana Cristina Freire DO, Dr. Woodward Attending Provider Manuel 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-C, Sidney Referring Provider [phone] Ana Cristina Freire DO, Dr. Woodward Referring Provider Jesse Mckeon Other Provider Jagjit JOSHI, Dr. Orta Attending Provider Ferullo, Sidney Primary Care Unavailable Ferullo, Sidney Referring Unavailable Darshana Huerta Attending Unavailable [place], Marivel Primary Care Unavailable Crissy Mcneal Attending Unavailabl e [place], Marivel Referring Unavailable Jesse Mckeon Attending Unavailable Ferullo, Sidney Primary Care Unavailable Ferullo, Sidney Referring Unavailable Jordan Cherry Attending Unavailable Jagjit, Marivel Referring Unavailable Jagjit, Marivel Primary Care Unavailable [place], Marivel Referring Unavailable [place], Marivel Primary Care Unavailable Crissy Mcneal Attending Unavailabl e [place], Marivel Primary Care Unavailable Crissy Mcneal Attending Unavailabl e Ferullo, Sidney Referring Unavailable Jagjit, Marivel Referring Unavailable [place], Marivel Primary Care Unavailable Jagjit, Marivel Attending Unavailable Crissy Mcneal Referring Unavailrome e Jesse Mckeon Consulting Unavailable Jagjit, Marivel Primary Care Unavailable Crissy Mcneal Attending Unavailabl e [place], Marivel Referring Unavailable Jagjit, Marivel Primary Care Unavailable Jagjit, Marivel Attending Unavailable Abram Watters Attending Unavailable [place], Marivel Primary Care Unavailable Allergies Allergy Classification Reported Allergen(s) Allergy Type Date of Onset Reaction(s) Facility (20 sources) acetaminophen / HYDROcodone; Translations: [HYDROCODONE-ACETA MINOPHEN] Propensity to adverse reactions to drug 07-07-19 16 Other (See Comments) [facility] (20 sources) diazePAM; Translations: [DIAZEPAM] Propensity to adverse reactions to drug 05-17-19 17 Anxiety [facility] Comment on above: panic attack (20 sources) erythromycin; Translations: [ERYTHROMYCIN BASE] Propensity to adverse reactions to drug 11-27-19 15 Other (See Comments), Nausea And Vomiting [facility] (19 sources) penicillin; Translations: [PENICILLIN] Propensity to adverse reactions to drug 11-27-19 15 Rash [facility] (1 source) Acetaminophen Drug Allergy [facility] (2 sources) diazePAM Drug Allergy 09-11-19 [facility] (2 sources) Erythromycin Drug Allergy 09-11-19 [facility] (3 sources) HYDROcodone; Translations: [HYDROCODONE] Drug Allergy 07-03-19 [facility] (3 sources) Penicillins; Translations: [PENICILLINS] Drug allergy (disorder) 11-27-19 15 [facility] (20 sources) cefdinir; Translations: [CEFDINIR] Drug Allergy 01-14-20 Anaphylaxis [facility] (18 sources) HYDROcodone Drug Allergy 01-14-20 Other [place], [place] Comment on above: hallucinations (1 source) Penicillins Propensity to adverse reactions to drug 01-14-20 [place] (1 source) Acetaminophen Drug Allergy 03-01-20 Other [facility] (17 sources) Penicillins Allergy to substance 03-01-20 [facility] (1 source) Erythromycin; Translations: [ERYTHROMYCIN] Drug Allergy 11-27-19 [facility] (1 source) cefdinir Drug Allergy 09-11-19 [facility] Medications Current Medications Medication Drug Class(es) Dates Sig (Normalized) Sig (Original) cetirizine hydrochloride 10 mg oral tablet (20 sources) Histamine-1 Receptor Antagonist Start: 07-03-2019 End: 02-02-2020 take 1 tablet by mouth at bedtime Cetirizine (Zyrtec) 10 mg tablet Active 10 mg PO AT BEDTIME February 02, 2020 10:19am allergy symptoms dexamethasone 1 mg oral tablet (2 sources) Corticosteroid Start: 09-10-2024 take 1 tablet by mouth once Dexamethasone 1 mg tablet Active 1 mg PO ONCE 1 0 September 10, 2024 12:00am 1 ml diphenhydrAMINE hydrochloride 50 mg/ml cartridge (1 source) Histamine-1 Receptor Antagonist Start: 01-17-2020 25 mg, Intravenous, EVERY 6 HOURS PRN, Itching, Hives, Starting 01/17/20 at 1430, docusate sodium 100 mg oral capsule (2 sources) Start: 01-14-2020 End: 01-17-2020 take 100 mg by mouth twice daily as needed for constipation 100 mg, Oral, 2 TIMES DAILY PRN, Constipation, Starting 01/17/20 at 1430 Do not crush or break. 0.6 ml enoxaparin sodium 100 mg/ml prefilled syringe (1 source) Low Molecular Weight Heparin Start: 01-17-2020 inject 60 mg by subcutaneous injection once daily 60 mg, Subcutaneous, DAILY, First dose on 01/17/20 at 2315, Norethindrone 1 Mg-Ethinyl Estradiol 10 McG (24)-Iron 10 McG(2) Tablet (2 sources) Estrogen take 1 tablet by mouth once daily, then take 1 tablet by mouth norethindrone-e.es tradiol-iron (LO LOESTRIN FE) 1 mg-10 mcg (24)/10 mcg (2) Tab Take 1 tablet by mouth daily . Active ferrous sulfate 325 mg oral tablet (1 source) Start: 01-17-2020 take 325 mg by mouth twice daily at mealtime 325 mg, Oral, 2 TIMES DAILY WITH MEALS, First dose on 01/17/20 at 1700 Start if Hgb less than 10. fluconazole 150 mg oral tablet (2 sources) Azole Antifungal Start: 09-17-2017 End: 09-22-2017 take 1 tablet by mouth once daily fluconazole (DIFLUCAN) 150 MG tablet Take 1 (one) tablet (150 mg total) by mouth daily for 5 days. 5 tablet 0 09/17/2017 09/22/2017 Active Start: 09-02-2017 End: 09-17-2017 take 1 tablet by mouth every other day fluconazole (DIFLUCAN) 150 MG tablet TAKE 1 (ONE) TABLET (150 MG TOTAL) BY MOUTH EVERY OTHER DAY FOR 3 DOSES. 0 09/02/2017 09/17/2017 Discontinued folic acid w/dha (8 sources) Start: 03-07-2023 take 1 tablet by milad th once daily folic acid w/dha Active 1 TABLET PO DAILY March 07, 2023 1:00am Start: 03-07-2023 folic acid w/d camejo Active PO DAILY March 07, 2023 1:00am Start: 03-07-2023 folic acid w/d camejo Active PO DAILY March 07, 2023 12:00am lansinoh lanolin ointment (1 source) Start: 01-17-2020 Topical, EVERY 1 HOUR PRN, Dry Skin, nipple discomfort, Starting 01/17/20 at 1430, medroxyPROGESTERone acetate 2.5 mg oral tablet (5 sources) Progestin Start: 09-02-2024 Medroxyprogesterone 2.5 mg tablet Active 2.5 mg PO daily 90 4 September 02, 2024 12:00am take 24 days on, 7 days off megestrol acetate 20 mg oral tablet (10 sources) Progestin Start: 07-22-2024 End: 09-10-2024 take 1 tablet by mouth once daily as needed Megestrol 20 mg tablet Active 20 mg PO DAILY as needed September 10, 2024 9:01am 24 hr metFORMIN hydrochloride 500 mg extended release oral tablet (20 sources) Biguanide Start: 08-07-2024 take 1 tablet by mouth twice daily Metformin 500 mg tablet extended release 24 hr Active 500 mg PO TWICE A DAY 180 90 August 07, 2024 2:45pm gdm Start: 03-07-2023 End: 08-01-2023 Metformin 500 mg tablet exte nded release 24 hr Discontinued 1000 mg PO TWICE A DAY 360 1 March 07, 2023 6:25pm August 01, 2023 9:51am gdm Start: 03-07-2023 take 1000 mg by mout h twice daily Metformin Active 1000 MG PO TWICE A DAY 360 March 07, 2023 6:25pm Start: 06-19-2021 metFORMIN (GLU COPHAGE-XR) 500 MG 24 hr tablet Start: 03-29-2020 End: 03-07-2023 take 1 tablet by mouth once daily in the evening Metformin 500 mg tablet extended release 24 hr Discontinued 500 mg PO EVERY EVENING 90 1 June 19, 2021 2:44pm March 07, 2023 6:26pm Start: 07-03-2019 End: 06-27-2021 take 1 tablet by mouth twice daily Metformin 500 mg tablet Discontinued 500 mg PO TWICE A DAY July 03, 2019 12:00am August 17, 2019 10:00am nut.tx.comp. immune systm,reg (NUT.TX.COMP. IMMUNE SYSTM,PLUS ORAL) (13 sources) nut.tx.comp. imm une systm,reg (NUT.TX.COMP. IMMUNE SYSTM,PLUS ORAL) Take by mouth . 0 Active ofloxacin 3 mg/ml ophthalmic solution (2 sources) Quinolone Antimicrobial Start: 09-11-19 End: 09-18-19 take 2 drop(s) into the eye(s) four times daily ofloxacin (OCUFLOX) 0.3 % ophthalmic solution Indications: Abrasion of left cornea, initial encounter Administer 2 (two) drops into the left eye 4 (four) times a day for 7 days . 10 mL 0 09/10/2021 09/17/2021 Active Pnv #84-Hgea-Csipa Acid-Omega3 (8 sources) Start: 03-07-20 take 1 capsule by mouth once daily Pnv #00-Qtoh-Uptvy Acid-Omega3 Active 1 CAP PO DAILY March 07, 2023 1:00am Start: 03-07-2023 take 1 capsule by [facility] once daily Pnv #11-Lgqu-Zixpd Acid-Omega3 Active 1 CAP PO DAILY March 07, 2023 12:00am [id number]-[id number] oi l 400 mcg-35 mg -25 mg-5 mg Chew (13 sources) Start: 04-30-2018 [id number]-fjvq oi l 400 mcg-35 mg -25 mg-5 mg Chew Chew and Swallow 1 tablet daily . 0 04/30/2018 Active no.82/iron/folate n o2 (TL FOLATE ORAL) (13 sources) no.82/i marcelo/folate no2 (TL FOLATE ORAL) Take 1,333 mcg by mouth Folic acid 800 mcg No iron . 0 Active VIT-FE FUMARATE-FA PO (1 source) VIT-FE FUMARATE-FA PO Take by mouth 0 Active vitamin 27-1 MG tablet 1 tablet (2 sources) Start: 01-17-2020 take 1 tablet by mouth once daily 1 tablet, Oral, DAILY, First dose on 01/17/20 at 1500 Begin when normal bowel activity resumes. Start: 01-14-2020 End: 01-17-2020 take 1 tablet by mouth once daily 1 tablet, Oral, DUGLAS Y, First dose on [facility] 01/14/20 at 1815 simethicone 80 mg chewable tablet (1 source) Start: 01-17-2020 take 80 mg by mouth every six hours as needed 80 mg, Oral, EVERY 6 HOURS PRN, Cramping, Flatulence, Starting 01/17/20 at 1430, 3 ml sodium chloride 9 mg/ml injection (3 sources) Start: 01-14-2020 End: 01-17-2020 10 mL, Intravenous, EVERY 12 HOURS SCHEDULED (2 times per day), First dose on 01/17/20 at 2100, Start: 01-14-2020 End: 01-17-2020 take 10 mL intravenous route once as needed 10 mL, Intravenous, PRN, Line Care, After every IV line use, Starting [facility] 01/14/20 at 1750 traMADol hydrochloride 50 mg oral tablet (1 source) Opioid Agonist Start: 01-20-2020 End: 01-23-2020 take 1 tablet by mouth every six hours as needed for pain, then take 1 tablet by mouth as needed for pain traMADol (ULTRAM) 50 MG tablet Indications: S/P primary low transverse Take 1 tablet by mouth every 6 hours as needed for Pain for up to 3 days. Intended supply: 3 days. Take lowest dose possible to manage pain 12 tablet 0 01/20/2020 01/23/2020 Active Completed/Discontinued Medications Medication Drug Class(es) Dates Sig (Normalized) Sig (Original) acetaminophen 500 mg oral tablet (1 source) Start: 01-14-2020 End: 01-14-2020 take 1000 mg by mouth once, then take 4000 mg by mouth every twenty-four hours 1,000 mg, Oral, ONCE, [facility] 01/14/20 at 1815, For 1 dose Maximum dose of acetaminophen is 4000 mg from all sources in 24 hours. Start: 01-14-2020 End: 01-14-2020 take 1000 mg by mouth once, then take 4000 mg by mouth every twenty-four hours 1,000 mg, Oral, ONCE, [facility] 01/14/20 at 1815, For 1 dose Maximum dose of acetaminophen is 4000 mg from all sources in 24 hours. 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 0 06/27/2021 Discontinued ASCORBATE CALCIU M (VITAMIN C ORAL) Take by mouth daily. 0 Active ASCORBATE CALCIU M (VITAMIN C ORAL) Take by mouth daily. Active ascorbic acid 500 mg oral capsule (17 sources) Vitamin C Start: 07-03-2019 End: 09-14-2019 Ascorbic Acid (Vitamin C) 50 0 mg capsule Discontinued mg PO July 03, 2019 12:00am September 14, 2019 9:10am Start: 07-03-2019 End: 09-14-2019 Ascorbic Acid (Vitamin C) Di scontinued MG PO July 03, 2019 12:00am September 14, 2019 9:10am Cranberry Conc-Ascorbic Acid (17 sources) Non-Standardized Food Allergenic Extract, Non-Standardized Plant Allergenic Extract, Vitamin C Start: 07-03-2019 End: 09-14-2019 Cranberry Conc-Ascorbic Acid 4,200-20 mg capsule Discontinued NMA PO July 03, 2019 12:00am September 14, 2019 9:10am Start: 07-03-2019 End: 09-14-2019 Cranberry Conc-Ascorbic Acid Discontinued CAP PO July 02, 2019 11:00pm September 14, 2019 8:10am Start: 07-03-2019 End: 09-14-2019 Cranberry Conc-Ascorbic Acid Discontinued CAP PO July 03, 2019 12:00am September 14, 2019 9:10am aspirin 81 mg delayed release oral tablet (15 sources) Platelet Aggregation Inhibitor, Nonsteroidal Anti-inflammatory Drug Start: 03-07-2023 End: 08-01-2023 take 1 tablet by mouth once daily Aspirin 81 mg tablet,delayed release (DR/EC) Discontinued 81 mg PO DAILY March 07, 2023 1:00am August 01, 2023 9:51am azithromycin 250 mg oral tablet (16 sources) Macrolide Antimicrobial Start: 05-03-2023 End: 05-17-2023 Azithromycin 250 mg tablet Discontinued 0 PO .COMPLEX May 03, 2023 1:00am May 17, 2023 4:03pm For 250 mg dose pack: take 500 mg today (day 1), then 250 mg for 4 days (days 2-5) PO Start: 05-03-2023 End: 05-17-2023 Azithromycin Discontinued 0 PO .COMPLEX May 03, 2023 1:00am May 17, 2023 4:03pm For 250 mg dose pack: take 500 mg today (day 1), then 250 mg for 4 days (days 2-5) PO Start: 01-13-2019 End: 01-18-2019 azithromycin (Zithromax) 250 MG tablet Indications: Sinusitis, unspecified chronicity, unspecified location Take 2 tablets (500 mg) on Day 1, followed by 1 tablet (250 mg) once daily on Days 2 through 5. . 6 tablet 0 01/13/2019 01/18/2019 Active betamethasone 3 mg/ml / betamethasone acetate 3 mg/ml injectable suspension (1 source) Corticosteroid Start: 01-15-2020 End: 01-16-2020 betamethasone acetate-betamethasone sodium phosphate (CELESTONE) injection 12 mg Blood-Glucose Meter (T[employer]etrack Blood Glucose System) kit (17 sources) Start: 11-12-2019 End: 02-02-2020 Blood-Glucose Meter ([employer] Blood Glucose System) kit Discontinued 0 .ROUTE .MEDSUPPLY 1 November 12, 2019 12:00am February 02, 2020 10:19am As directed Start: 11-12-2019 End: 02-02-2020 Blood-Glucose Meter (Truetra ck Blood Glucose System) kit Discontinued 0 .ROUTE .MEDSUPPLY November 11, 2019 11:00pm February 02, 2020 9:19am As directed Start: 11-12-2019 End: 02-02-2020 Blood-Glucose Meter (Truetra ck Blood Glucose System) kit Discontinued 0 .ROUTE .MEDSUPPLY 1 November 12, 2019 12:00am February 02, 2020 10:19am As directed Breast Pump (10 sources) Start: 12-03-2019 End: 03-01-2021 Breast Pump Discontinued 0 . ROUTE .MEDSUPPLY 1 December 02, 2019 11:00pm March 01, 2021 1:16pm As directed Start: 12-03-2019 End: 03-01-2021 Breast Pump Discontinued 0 . ROUTE .MEDSUPPLY 1 December 03, 2019 12:00am March 01, 2021 2:16pm As directed Breast Pump device (7 sources) Start: 12-03-2019 End: 03-01-2021 Breast Pump device Discontin ued 0 .ROUTE .MEDSUPPLY 1 0 December 03, 2019 12:00am March 01, 2021 2:16pm As directed Start: 12-03-2019 End: 03-01-2021 Breast Pump device Discontin ued 0 .ROUTE .MEDSUPPLY 1 December 03, 2019 12:00am March 01, 2021 2:16pm As directed calcium chloride 0.0014 meq/ ml / potassium chloride 0.004 meq/ml / sodium chloride 0.103 meq/ml / sodium lactate 0.028 meq/ml injectable solution (3 sources) Start: 01-17-2020 End: 01-17-2020 lactated ringers bolus Start: 01-14-2020 End: 01-15-2020 Intravenous, at 125 mL/hr, C ONTINUOUS, Starting [facility] 01/14/20 at 1815 cefdinir 300 mg oral capsule (1 source) Cephalosporin Antibacterial Start: 01-13-2019 End: 01-13-2019 take 1 capsule by mouth twice daily cefdinir (OMNICEF) 300 MG capsule Indications: Sinusitis, unspecified chronicity, unspecified location Take 1 (one) capsule (300 mg total) by mouth 2 (two) times a day for 7 days . 14 capsule 0 01/13/2019 01/13/2019 Discontinued (Allergic response) citric acid 66.8 mg/ml / sodium citrate 100 mg/ml oral solution (1 source) Calculi Dissolution Agent, Anti-coagulant Start: 01-17-2020 End: 01-17-2020 citric acid-sodium citrate (BICITRA) solution 30 mL clindamycin 900 mg in sodium chloride 0.9 % 50 mL infusion (1 source) Start: 01-17-2020 End: 01-17-2020 clindamycin 900 mg in sodium chloride 0.9 % 50 mL infusion doxycycline monohydrate 100 mg oral capsule (20 sources) Tetracycline-class Drug Start: 06-02-2024 End: 07-22-2024 take 1 capsule by mouth twice daily Doxycycline Monohydrate 100 mg capsule Discontinued 100 mg PO TWICE A DAY June 02, 2024 12:00am July 22, 2024 11:11am Start: 09-29-2020 End: 03-01-2021 take 1 tablet by mouth twice daily Doxycycline Hyclate 100 mg tablet Discontinued 100 mg PO TWICE A DAY September 29, 2020 12:00am March 01, 2021 2:17pm elderberry fruit 200 mg oral capsule (17 sources) Start: 07-03-2019 End: 09-14-2019 Elderberry Fruit 200 mg capsule Discontinued 100 mg PO .COMPLEX July 03, 2019 12:00am September 14, 2019 9:10am 100 mg PO; Ethinyl Estradiol / Ferrous fumarate / Norethindrone (2 sources) Estrogen End: 06-27-2021 take 1 tablet by mouth once daily norethindrone-e.estra diol-iron (LO LOESTRIN FE) 1 mg-10 mcg (24)/10 mcg (2) Tab Take 1 tablet by mouth daily . 0 06/27/2021 Discontinued take 1 tablet by milad th once daily norethindrone-e.estradiol-iron (LO LOEST RIN FE) 1 mg-10 mcg (24)/10 mcg (2) Tab Take 1 tablet by mouth daily . 0 Active Norgestimate-Ethinyl Estradiol (17 sources) Progestin, Estrogen Start: 03-28-2020 End: 01-12-2021 Norgestimate-Ethinyl Estradiol (Rhv-Mk-Mqyxok) 0.18/0.215/0.25 mg-25 mcg tablet Discontinued 1 {tbl} PO DAILY 07 03March 28, 2020 1:00am January 12, 2021 3:39pm Start: 03-28-2020 End: 01-12-2021 Norgestimate-Ethinyl Estradi ol (Iau-Gk-Rqquqh) 0.18/0.215/0.25 mg-25 mcg tablet Discontinued 1 {tbl} PO DAILY March 28, 2020 1:00am January 12, 2021 3:39pm Start: 03-28-2020 End: 01-12-2021 take 1 tablet by mouth once daily Norgestimate-Ethinyl Estradiol (Oez-Ps-Uxlsjx) 0.18/0.215/0.25 mg-25 mcg tablet Discontinued 1 TABLET PO DAILY March 28, 2020 12:00am January 12, 2021 2:39pm Start: 03-28-2020 End: 01-12-2021 take 1 tablet by mouth once daily Norgestimate-Ethinyl Estradiol (Phb-Vz-Tdczya) 0.18/0.215/0.25 mg-25 mcg tablet Discontinued 1 TABLET PO DAILY March 28, 2020 1:00am January 12, 2021 3:39pm Flash Glucose Sensor (Freest yle Lily 2 Sensor) kit (16 sources) Start: 01-11-2023 End: 08-01-2023 Flash Glucose Sensor (Freest yle Lily 2 Sensor) kit Discontinued 0 .Route 1 0 January 11, 2023 12:00am August 01, 2023 9:51am As directed Start: 01-11-2023 End: 08-01-2023 Flash Glucose Sensor (Freest yle Lily 2 Sensor) kit Discontinued 0 .Route January 11, 2023 12:00am August 01, 2023 9:51am As directed Start: 01-11-2023 Flash Glucose Sensor (Freestyle Lily 2 Sensor) kit Active 0 .Route January 11, 2023 12:00am As directed Start: 01-11-2023 Flash Glucose Sensor (Freestyle Lily 2 Sensor) kit Active 0 .Route January 10, 2023 11:00pm As directed fluticasone propionate 0.05 mg/actuat metered dose nasal spray (7 sources) Corticosteroid Start: 07-22-2024 End: 08-07-2024 take 50 ug nasal route at bedtime as needed Fluticasone Propionate (24 Hour Allergy Relief) 50 mcg/actuation spray,suspension Discontinued 1 NMA INTRANASAL AT BEDTIME as needed for allergy symptoms July 22, 2024 12:00am August 07, 2024 2:18pm administer into each nostril folic acid w/dha 800 mcg (7 sources) Start: 03-07-2023 End: 08-06-2023 folic acid w/dha 800 mcg Discontinued 1 {tbl} PO DAILY March 07, 2023 1:00am August 06, 2023 1:06pm Start: 03-07-2023 End: 08-06-2023 folic acid w/dha 800 mcg Dis continued 1 {tbl} PO DAILY March 07, 2023 1:00am August 06, 2023 1:06pm gentamicin 500 mg in sodium chloride 0.9 % 250 mL infusion (1 source) Start: 01-17-2020 End: 01-17-2020 gentamicin 500 mg in sodium chloride 0.9 % 250 mL infusion ibuprofen 200 mg oral capsule (18 sources) Nonsteroidal Anti-inflammatory Drug Start: 02-02-2020 End: 03-02-2020 take 1 capsule by mouth every six hours as needed Ibuprofen 200 mg capsule Discontinued 200 mg PO EVERY 6 HOURS as needed February 02, 2020 1:00am March 02, 2020 10:25am Start: 01-17-2020 take 600 mg by mouth every six hours 600 mg, Oral, EVERY 6 HOURS, First dose on 01/17/20 at 1500 Do not crush or chew. 3 ml insulin isophane, human 100 unt/ml pen injector (20 sources) Start: 06-07-2023 End: 08-01-2023 Insulin Nph Isoph U-100 Conrado n (Humulin N Nph Insulin Kwikpen) 100 unit/mL (3 mL) insulin pen Discontinued 20 U SC .in pm June 07, 2023 1:40pm August 01, 2023 9:51am GDM 10 units in am Start: 04-16-2023 End: 06-07-2023 Insulin Nph Isoph U-100 Conrado n (Humulin N Nph Insulin Kwikpen) 100 unit/mL (3 mL) insulin pen Discontinued 50 U SC TWICE A DAY 30 April 16, 2023 1:00am June 07, 2023 1:40pm 1 ml ketorolac tromethamine 30 mg/ml cartridge (1 source) Nonsteroidal Anti-inflammatory Drug, Cyclooxygenase Inhibitor Start: 01-17-2020 End: 01-18-2020 30 mg, Intravenous, EVERY 6 HOURS, First dose on 01/17/20 at 1730, For 24 hours Do not administer for more than 5 days. First dose should be administered 6 hours after anesthesia's administered dose in OR or PACU. Do NOT give with ibuprofen. ketotifen 0.25 mg/ml ophthalmic solution (1 source) Histamine-1 Receptor Inhibitor Start: 03-29-2012 End: 05-17-2017 ketotifen (ZADITOR) 0.025 % (0.035 %) ophthalmic solution Administer to both eyes as needed . 03/29/2012 05/17/2017 Discontinued labetalol hydrochloride 100 mg oral tablet (20 sources) beta-Adrenergic Ziggy Start: 11-22-2023 End: 09-10-2024 take 1 tablet by mouth twice daily Labetalol 100 mg tablet Discontinued 100 mg PO TWICE A DAY 60 1 February 05, 2024 5:52pm April 10, 2024 12:04pm Start: 06-18-2023 End: 11-04-2023 take 1 tablet by mouth twice daily Labetalol 100 mg tablet Discontinued 100 mg PO TWICE A DAY 180 90 0 August 06, 2023 1:44pm November 03, 2023 12:00am November 04, 2023 12:04am High blood pressure Start: 12-14-2022 End: 06-18-2023 Labetalol 300 mg tablet Disc ontinued 100 mg PO TWICE A DAY December 14, 2022 1:19pm June 18, 2023 5:44pm Start: 12-14-2022 End: 06-18-2023 take 100 mg by mouth twice daily Labetalol Discontinued 100 MG PO TWICE A DAY December 14, 2022 1:19pm June 18, 2023 5:44pm Start: 07-28-2021 End: 06-13-2022 take 1 tablet by mouth twice daily labetaloL (NORMODYNE) 100 MG tablet Indications: Hypertension, unspecified type Take 1 (one) tablet (100 mg total) by mouth 2 (two) times a day . 180 tablet 1 03/15/2022 Active Start: 06-27-2021 End: 07-27-2021 take 2 tablets by mouth three times daily, then take 2 tablets by mouth twice daily labetaloL (NORMODYNE) 100 MG tablet Indications: Hypertension, unspecified type Take 2 (two) tablets (200 mg total) by mouth 3 (three) times a day for 15 days, THEN 2 (two) tablets (200 mg total) 2 (two) times a day for 15 days. 150 tablet 0 06/27/2021 07/27/2021 Active Start: 01-06-2021 End: 12-14-2022 take 1 tablet by mouth twice daily Labetalol 300 mg tablet Discontinued 300 mg PO TWICE A DAY 180 January 06, 2021 8:19am December 14, 2022 1:19pm Start: 01-27-2020 End: 01-06-2021 take 1 tablet by mouth twice daily Labetalol 200 mg tablet Discontinued 200 mg PO TWICE A DAY 180 September 28, 2020 11:33am January 06, 2021 8:23am Start: 01-20-2020 take 1 tablet by milad every eight hours labetalol (NORMODYNE) 200 MG tablet Take 1 tablet by mouth every 8 hours 60 tablet 3 01/20/2020 Active Start: 01-19-2020 labetalol (NOR MODYNE) tablet 200 mg metoclopramide 10 mg oral tablet (1 source) Dopamine-2 Receptor Antagonist Start: 01-14-2020 End: 01-14-2020 take 10 mg by mouth once 10 mg, Oral, ONCE, Charline 01/14/20 at 1815, For 1 dose Start: 01-14-2020 End: 01-14-2020 take 10 mg by mouth once 10 mg, Oral, ONCE, Charline at 1815, For 1 dose miconazole nitrate 0.02 mg/mg topical powder (17 sources) Azole Antifungal Start: 09-29-2020 End: 03-01-2021 Miconazole Nitrate (Desenex) 2 % powder Discontinued 1 NMA TOPICAL TWICE A DAY 85 September 29, 2020 12:00am March 01, 2021 2:17pm montelukast 10 mg oral tablet (4 sources) Leukotriene Receptor Antagonist Start: 04-23-2017 End: 06-27-2021 montelukast (SINGULAIR) 10 mg tablet Multivit 05-Gaaf-Hcncrg 1-Dha (Pnv-Dha) 27 mg iron-1 mg -300 mg capsule (17 sources) Start: 07-03-2019 End: 03-01-2021 Multivit 22-Mlqq-Fddetd 1-Dha (Pnv-Dha) 27 mg iron-1 mg -300 mg capsule Discontinued NMA PO July 03, 2019 12:00am March 01, 2021 2:17pm Start: 07-03-2019 End: 03-01-2021 Multivit 72-Dnfv-Wselya 1-Dh a (Pnv-Dha) 27 mg iron-1 mg -300 mg capsule Discontinued CAP PO July 02, 2019 11:00pm March 01, 2021 1:17pm Start: 07-03-2019 End: 03-01-2021 Multivit 70-Mfwx-Sbxbxe 1-Dh a (Pnv-Dha) 27 mg iron-1 mg -300 mg capsule Discontinued CAP PO July 03, 2019 12:00am March 01, 2021 2:17pm Multivit With Min-Folic Acid (One-A-Day Vitacraves Immunity) 200 mcg tablet,chewable (17 sources) Start: 06-23-2020 End: 03-07-2023 take 1 tablet by mouth once daily Multivit With Min-Folic Acid (One-A-Day Vitacraves Immunity) 200 mcg tablet,chewable Discontinued {tbl} PO June 23, 2020 12:00am March 07, 2023 5:20pm Start: 06-23-2020 End: 03-07-2023 take 1 tablet by mouth once Multivit With Min-Folic Ac id (One-A-Day Vitacraves Immunity) 200 mcg tablet,chewable Discontinued TABLET PO June 23, 2020 12:00am March 07, 2023 5:20pm Start: 06-23-2020 End: 03-07-2023 take 1 tablet by mouth once Multivit With Min-Folic Ac id (One-A-Day Vitacraves Immunity) 200 mcg tablet,chewable Discontinued TABLET PO June 22, 2020 11:00pm March 07, 2023 4:20pm Start: 06-23-2020 take 1 tablet by mouth once Mu ltivit With Min-Folic Acid (One-A-Day Vitacraves Immunity) 200 mcg tablet,chewable Active TABLET PO June 22, 2020 11:00pm Start: 06-23-2020 take 1 tablet by mouth once Mu ltivit With Min-Folic Acid (One-A-Day Vitacraves Immunity) 200 mcg tablet,chewable Active TABLET PO June 23, 2020 12:00am MULTIVITAMIN WITH MINERALS (HAIR,SKIN AND NAILS ORAL) (4 sources) End: 06-27-2021 take 1 tablet by mouth once daily MULTIVITAMIN WITH MINERALS (HAIR,SKIN AND NAILS ORAL) Take 1 tablet by mouth daily. 0 06/27/2021 Discontinued take 1 tablet by mouth once duglas y MULTIVITAMIN WITH MINERALS (HAIR,SKIN AND NAILS ORAL) Take 1 tablet by mouth daily. 0 Active take 1 tablet by mouth once duglas y MULTIVITAMIN WITH MINERALS (HAIR,SKIN AND NAILS ORAL) Take 1 tablet by mouth daily. Active MULTIVITS,CA,MINERALS/IRON/F A (ONE-A-DAY WOMENS FORMULA ORAL) (4 sources) End: 06-27-2021 take 1 tablet by mouth once daily MULTIVITS,CA,MINERALS/IRON/FA (ONE-A-DAY WOMENS FORMULA ORAL) Take 1 tablet by mouth daily. 0 06/27/2021 Discontinued take 1 tablet by milad th once daily MULTIVITS,CA,MINERALS/IRON/FA (ONE-A-DAY WOMENS FORMULA ORAL) Take 1 tablet by mouth daily. 0 Active take 1 tablet by milad th once daily MULTIVITS,CA,MINERALS/IRON/FA (ONE-A-DAY WOMENS FORMULA ORAL) Take 1 tablet by mouth daily. Active mupirocin 20 mg/ml topical cream (4 sources) RNA Synthetase Inhibitor Antibacterial Start: 04-15-2017 End: 06-27-2021 mupirocin (BACTROBAN) 2 % cream naproxen 500 mg oral tablet (8 sources) Nonsteroidal Anti-inflammatory Drug Start: 07-20-2023 End: 08-06-2023 take 1 tablet by mouth twice daily as needed for pain Naproxen 500 mg tablet Discontinued 500 mg PO TWICE DAILY NEEDED as needed for Pain 30 July 20, 2023 12:00am August 06, 2023 1:06pm nitrofurantoin, macrocrystals 25 mg / nitrofurantoin, monohydrate 75 mg oral capsule (12 sources) Nitrofuran Antibacterial Start: 06-18-2023 End: 07-18-2023 take 1 capsule by mouth every twelve hours at mealtime Nitrofurantoin Monohyd/M-Cryst (Macrobid) 100 mg capsule Discontinued 100 mg PO Q12H 14 7 0 June 18, 2023 12:00am July 18, 2023 10:51am must administer with a meal/food Start: 11-16-2021 End: 11-21-2021 take 1 capsule by mouth twice daily nitrofurantoin, macrocrystal-monohydrate , (MACROBID) 100 MG capsule Indications: Urinary frequency Take 1 (one) capsule (100 mg total) by mouth 2 (two) times a day for 5 days . 10 capsule 0 11/16/2021 11/21/2021 Active norethindrone 0.35 mg oral tablet (20 sources) Start: 08-07-2024 End: 09-02-2024 take 1 tablet by mouth once daily Norethindrone (Contraceptive) (Ortho Micronor) 0.35 mg tablet Discontinued 0.35 mg PO DAILY 90 90 4 August 07, 2024 2:43pm September 02, 2024 8:53am start day 1 of menstrual cycle Start: 06-25-2021 End: 04-16-2022 norethindrone (MICRONOR) 0.3 5 mg tablet Start: 06-25-2021 norethindrone (MICRONOR) 0.35 mg tablet Start: 01-12-2021 End: 11-20-2022 take 1 tablet by mouth once daily Norethindrone (Contraceptive) (Romy) 0.35 mg tablet Discontinued 0.35 mg PO daily 84 March 01, 2021 2:32pm November 20, 2022 8:23am start day 1 of menstrual cycle Start: 03-02-2020 End: 03-28-2020 take 1 tablet by mouth once daily Norethindrone (Contraceptive) (Ortho Micronor) 0.35 mg tablet Discontinued 0.35 mg PO DAILY 28 March 02, 2020 1:00am March 28, 2020 10:11am start day 1 of menstrual cycle nystatin [id number] unt/ml oral suspension (3 sources) Polyene Antifungal Start: 09-02-2017 End: 06-27-2021 take 5 mL by mouth four times daily nystatin (MYCOSTATIN) 100,000 unit/mL suspension Take 5 mL by mouth 4 (four) times a day. 0 09/02/2017 06/27/2021 Discontinued ondansetron 4 mg disintegrating oral tablet (12 sources) Serotonin-3 Receptor Antagonist Start: 06-18-2023 End: 07-18-2023 take 1 tablet by mouth every six hours as needed for nausea and vomiting Ondansetron 4 mg tablet,disintegrat ing Discontinued 4 mg PO EVERY 6 HOURS as needed for nausea and vomiting 14 0 June 18, 2023 12:00am July 18, 2023 10:51am Nausea and vomiting during Vomiting of , unspecified Start: 01-17-2020 4 mg, Intraven ous, EVERY 6 HOURS PRN, Nausea, Starting 01/17/20 at 1430, oxytocin (PITOCIN) 30 units in 500 mL infusion (1 source) Start: 01-17-2020 End: 01-17-2020 125 mL/hr, Intravenous, at 1 25 mL/hr, CONTINUOUS, Starting 01/17/20 at 1245, For 4 hours For Post Use Only. Given after delivery of placenta and immediate bolus. To follow initial bolus given immediately after delivery. Verify patient received oxytocin 250 cc bolus at delivery followed by and additional 250 cc over 1 hour (250cc/hr) in the immediate phase of care. oxytocin (PITOCIN) 30 units in 500 mL infusion Override Pull (1 source) Start: 01-17-2020 End: 01-17-2020 oxytocin (PITOCIN) 30 units in 500 mL infusion Override Pull Pnv #30-Riay-Pskcz Acid-Omega3 30 mg iron-10 mg iron-1 mg capsule (7 sources) Start: 03-07-2023 End: 08-07-2024 Pnv #26-Dkcr-Rblbj Acid-Omeg a3 30 mg iron-10 mg iron-1 mg capsule Discontinued 1 NMA PO DAILY March 07, 2023 1:00am August 07, 2024 2:18pm SUPPLEMENT Start: 03-07-2023 End: 08-07-2024 Pnv #82-Olfi-Xaeec Acid-Omeg a3 30 mg iron-10 mg iron-1 mg capsule Discontinued 1 NMA PO DAILY March 07, 2023 1:00am August 07, 2024 2:18pm Start: 03-07-2023 Pnv #30-Iron-F olic Acid-Omega3 30 mg iron-10 mg iron-1 mg capsule Active 1 NMA PO DAILY March 07, 2023 1:00am sertraline 50 mg oral tablet (7 sources) Serotonin Reuptake Inhibitor Start: 10-21-2023 End: 11-22-2023 take 1 tablet by mouth once daily Sertraline (Zoloft) 50 mg tablet Discontinued 50 mg PO DAILY 90 October 21, 2023 12:00am November 22, 2023 10:15am depression depression tetracaine hydrochloride 5 mg/ml ophthalmic solution (4 sources) Ana María [facility] Start: 09-10-2021 End: 09-10-2021 tetracaine (PONTOCAINE) 0.5 % ophthalmic solution 1 drop Start: 09-10-2021 End: 09-10-2021 tetracaine (PONTOCAINE) 0.5 % ophthalmic solution 1 drop Start: 09-10-2021 End: 09-10-2021 tetracaine (PONTOCAINE) 0.5 % ophthalmic solution 1 drop Start: 09-10-2021 End: 09-10-2021 tetracaine (PONTOCAINE) 0.5 % ophthalmic solution 1 drop Problems Active Problems Problem Classification Problem Date Documented Date Episodic/Chronic Adjustment disorders (1 source) Family tension; Translations: [Reaction to severe stress, unspecified] 09-10-2024 Chronic Administrative/social admission (5 sources) First encounter by subject; Translations: [Persons encountering health services in other specified circumstances] 08-07-2023 Episodic Anxiety disorders (7 sources) Anxiety; Translations: [Anxiety disorder, unspecified] 11-22-2023 Chronic Diabetes or abnormal glucose tolerance complicating ; childbirth; or the puerperium (20 sources) 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 s iwona mcdonald. Diabetes or abnormal glucose tolerance complicating ; childbirth; or the puerperium (20 sources) Gestational diabetes mellitus complicating ; Translations: [Gestational diabetes mellitus in , unspecified control] Onset: 01-14-2020 Resolved: 08-25-2021 06-27-2021 Episodic Comment on above: diet controlled. end ocrine following. glucose 152. ordered [id number] first trimest er Early or threatened labor (20 sources) Premature uterine contraction; Translations: [False labor before 37 completed weeks of gestation, unspecified trimester] 06-18-2023 Episodic Comment on above: ffn neg, closed cerv ical exam Essential hypertension (20 sources) Hypertensive disorder; Translations: [Essential (primary) hypertension] Onset: 06-27-2021 Chronic Immunizations and screening for infectious disease (20 sources) Needs influenza immunization; Translations: [Encounter for immunization] 01-06-2021 Episodic Comment on above: 01/11/23 Inflammatory diseases of female pelvic organs (1 source) Acute vaginitis Episodic Menstrual disorders (13 sources) Amenorrhea; Translations: [Amenorrhea, unspecified] Onset: 06-28-2021 Chronic Miscellaneous mental health disorders (7 sources) depression; Translations: [ depression] 10-21-2023 Episodic Other complications of ; puerperium affecting management of mother (17 sources) condition affecting obstetrical care of mother; Translations: [ cleft lip and palate affecting antepartum care of mother] 11-23-2022 Episodic Comment on above: confirmed right and left cleft lip and palate. s/p treatment center consult, FU q4 weeks MFM. Planned visit with plastics and . OK for H delivery. Other complications of ; puerperium affecting management of mother (8 sources) Deliveries by ; Translations: [Encounter for delivery without indication] 07-20-2023 Episodic Comment on above: JAEL Bowles Other complications of ; puerperium affecting management of mother (1 source) Encounter for delivery without indication; Translations: [ delivery, without mention of indication, delivered, with or without mention of antepartum condition] 07-20-2023 Episodic Other complications of (17 sources) Maternal obesity complicating , childbirth and the puerperium, antepartum; Translations: [Obesity complicating , unspecified trimester] 11-23-2022 Chronic Comment on above: encouraged healthy w eight gain Other complications of (20 sources) Obesity complicating , unspecified trimester; Translations: [Obesity complicating , childbirth, or the puerperium, unspecified as to episode of care or not applicable] 12-14-2022 Chronic Other complications of (20 sources) ultrasound scan abnormal; Translations: [Abnormal ultrasonic finding on screening of mother] Onset: 06-27-2021 06-27-2021 Episodic Comment on above: 11/26/19-repeat US i n 4 weeks- very limited views, 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 FU echo mid december. Other complications of (20 sources) High risk ; Translations: [Supervision of high risk , unspecified, unspecified trimester] Onset: 06-27-2021 Resolved: 08-25-2021 06-27-2021 Episodic Comment on above: PRR AGAPITO: 024 lili Bowles PC: Fahad Spouse: Robin Other complications of (16 sources) History of pre-eclampsia; Translations: [Supervision of with other poor reproductive or obstetric history, unspecified trimester] 12-14-2022 Episodic Comment on above: baseline PEC labs, rpt PEC labs this week Other complications of (20 sources) Supervision of with other poor reproductive or obstetric history, unspecified trimester; Translations: [ with other poor obstetric history] 12-14-2022 Episodic Other complications of (20 sources) Supervision of high risk , unspecified, unspecified trimester; Translations: [Supervision of unspecified high-risk ] 12-14-2022 Episodic Other complications of (12 sources) Traumatic injury during ; Translations: [Injury, poisoning and certain other consequences of external causes complicating , unspecified trimester] 05-31-2023 Episodic Comment on above: mild hit to upper ab domen away from uterus Other complications of (5 sources) Injury, poisoning and certain other consequences of external causes complicating , unspecified trimester; Translations: [Other specified complications of , antepartum condition or complication] 05-25-2023 Episodic Other complications of (4 sources) Nausea and vomiting; Translations: [Vomiting of , unspecified] 06-18-2023 Episodic Other complications of (11 sources) Urinary tract infection in ; Translations: [Unspecified infection of urinary tract in , unspecified trimester] 06-18-2023 Episodic Other complications of (12 sources) Unspecified infection of urinary tract in , unspecified trimester; Translations: [Infections of genitourinary tract in , unspecified as to episode of care or not applicable] 06-18-2023 Episodic Other complications of (13 sources) Vomiting of , unspecified; Translations: [Unspecified vomiting of , unspecified as to episode of care or not applicable] 06-21-2023 Episodic Other complications of (9 sources) Group B Streptococcus carrier; Translations: [Streptococcus B carrier state complicating ] 07-07-2023 Episodic Comment on above: treat if labor Other complications of (2 sources) Streptococcus B carrier state complicating ; Translations: [Supervision of other high-risk ] 07-12-2023 Episodic Other endocrine disorders (20 sources) Polycystic ovary syndrome; Translations: [Polycystic ovarian syndrome] 01-06-2021 Chronic Other endocrine disorders (20 sources) Polycystic ovarian syndrome; Translations: [Polycystic ovaries] Onset: 04-10-2024 12-13-2022 Chronic Other female genital disorders (7 sources) Abnormal vaginal bleeding; Translations: [Abnormal uterine and vaginal bleeding, unspecified] 07-22-2024 Chronic Other female genital disorders (11 sources) Abnormal uterine bleeding; Translations: [Abnormal uterine and vaginal bleeding, unspecified] 09-02-2024 Chronic Other female genital disorders (1 source) Abnormal uterine and vaginal bleeding, unspecified; Translations: [Abnormal uterine and vaginal bleeding, unspecified] Onset: 07-27-2024 Chronic Other inflammatory condition of skin (17 sources) Irritant contact dermatitis; Translations: [Erythema intertrigo] 09-29-2020 Episodic Other nervous system disorders (1 source) Skin tenderness; Translations: [Other disturbances of skin sensation] 07-11-2022 Episodic Other nervous system disorders (2 sources) Other disturbances of skin sensation; Translations: [Other disturbances of skin sensation] Onset: 07-11-2022 Episodic Other nutritional; endocrine; and metabolic disorders (20 sources) Insulin resistance; Translations: [Metabolic syndrome] Onset: 06-27-2021 06-27-2021 Chronic Comment on above: on metformin prior t o - continue metformin and start glucose monitoring. increased fastings- will consult dr mcdonald, consider increasing metformin or switching to insulin Other nutritional; endocrine; and metabolic disorders (18 sources) Body mass index 30+ - obesity; Translations: [Obesity, unspecified] 08-07-2023 Chronic Other nutritional; endocrine; and metabolic disorders (3 sources) Body mass index 40+ - severely obese; Translations: [Morbid (severe) obesity due to excess calories] 09-10-2024 Chronic Other nutritional; endocrine; and metabolic disorders (1 source) Obesity, unspecified; Translations: [Obesity, unspecified] Onset: 04-10-2024 Chronic Other and delivery including normal (20 sources) Normal ; Translations: [Encounter for supervision of normal , unspecified, unspecified trimester] 10-12-2019 Episodic Comment on above: low risk nipt . obta ining genetic testing with daughter with nahomy perkins and results are pending. Other skin disorders (1 source) Cyst of [...] Onset: 05-28-2022 Episodic Other upper respiratory infections (17 sources) Sinusitis; Translations: [Chronic sinusitis, unspecified] 09-29-2020 Chronic Other upper respiratory infections (1 source) Sinusitis; Translations: [Sinusitis, unspecified chronicity, unspecified location] Episodic Residual codes; unclassified (2 sources) H/O: section; Translations: [S/P primary low transverse ] Onset: 01-17-2020 01-17-2020 Episodic Residual codes; unclassified (15 sources) H/O: previous baby with growth restriction; Translations: [Personal history of other complications of , childbirth and the puerperium] 02-08-2023 Episodic Comment on above: third trimester test ing already planned Residual codes; unclassified (20 sources) History of uterine scar from previous surgery; Translations: [Other postprocedural status] 02-08-2023 Episodic Residual codes; unclassified (20 sources) Personal history of other complications of , childbirth and the puerperium; Translations: [Personal history of other genital system and obstetric disorders] 02-08-2023 Episodic Screening and history of mental health and substance abuse codes (1 source) Patient encounter status; Translations: [Encounter for screening for depression] 09-10-2024 Episodic Superficial injury; contusion (2 sources) Abrasion of left cornea; Translations: [Injury of conjunctiva and corneal abrasion without foreign body, left eye, initial encounter] Episodic Unclassified (2 sources) Morbid obesity with body mass index (BMI) of 45.0 to 49.9 in adult Unclassified (2 sources) E66.01 - Morbid (severe) obesity due to excess calories,Z68.42 - Body mass index [BMI] 45.0-49.9, adult Past or Other Problems Problem Classification Problem Date Documented Da te Episodic/Chronic Contraceptive and procreative management (16 sources) Oral contraception; Translations: [Encounter for surveillance of contraceptive pills] Onset: 02-24-2018 06-27-2021 Episodic Genitourinary symptoms and ill-defined conditions [...] Onset: 01-14-2020 Resolved: 08-25-2021 06-27-2021 Episodic Other female genital disorders (14 sources) H/O gynecological disorder; Translations: [Personal history of other diseases of the female genital tract] Onset: 02-24-2018 01-20-2020 Episodic Other skin disorders (2 sources) Follicular cyst of the skin and subcutaneous tissue, unspecified; Translations: [Follicular cyst of the skin and subcutaneous tissue, unspecified] Onset: 04-16-2022 Episodic Results Test Name Value Interpretation Reference Range Facility Absolute lymphocyte countOrd ered By: Jesse Barajas on 09-12-2024 Lymphocytes Auto (Unsp spec) [#/Vol] 1.55 10*3/uL 0.83-4.51 [facility] Absolute neutrophil countOrd ered By: Jesse Barajas on 09-12-2024 Neutrophils (Bld) [#/Vol] 7.1 10*3/uL 2.0-7.7 [facility] Anion gap in Serum or Plasma Ordered By: Marivel Danielson on 09-12-2024 Anion gap [Moles/Vol] 15 mmol/L 5-15 [facility] Automated lymphocyte count a s percentage of total leukocytesOrdered By: Jesse Barajas on 09-12-2024 Lymphocytes/100 WBC Auto (Unsp spec) 17.0 % Low 19-41 [facility] BUN/creatinine ratioOrdered By: Marivel Danielson on 09-12-2024 Urea nitrogen/Creatinine [Mass ratio] 22.2 mg/mg High 10-20 [facility] Basophil percentageOrdered B y: Jesse Barajas on 09-12-2024 Basophils/100 WBC (Bld) 0.2 % 0-1 [facility] Bilirubin, totalOrdered By: Marivel Danielson on 09-12-2024 Bilirubin [Mass/Vol] 0.27 mg/dL 0.00-1.30 [facility] CBC W/Diff, Automatedon 0 Absolute Lymph 1.55 X10 3/uL Normal 0.83-4.51 [facility] Comment on above: Performed By: #### L 501.4243, L500.7590, L100.0100 ####[facility] [address] [place], [place], [id number] Absolute Neut 7.1 X10 3/uL Normal 2.0-7.7 [facility] Comment on above: Performed By: #### L 501.9520, L500.4100, L100.0100 ####[facility] [address] [place], [address] Basophils/100 WBC (Bld) 0.2 % Normal 0-1 [facility] Comment on above: Performed By: #### L 501.9520, L500.4100, L100.0100 ####[facility] [address] [place], [address] Eosinophils/100 WBC (Bld) 0.4 % Normal 0-5 [facility] Comment on above: Performed By: #### L 501.9520, L500.4100, L100.0100 ####[facility] [address] [place], [address] Erythrocyte distribution width (RBC) [Ratio] 12.3 % Normal 11.6-14.6 [facility] Comment on above: Performed By: #### L 501.9520, L500.4100, L100.0100 ####[facility] [address] [place], [address] Hematocrit (Bld) [Volume fraction] 41.5 % Normal 37-47 [facility] Comment on above: Performed By: #### L 501.9520, L500.4100, L100.0100 ####[facility] [address] [place], [address] Hemoglobin (Bld) [Mass/Vol] 14.4 g/dL Normal 12.0-15.0 [facility] Comment on above: Performed By: #### L 501.9520, L500.4100, L100.0100 ####[facility] [address] [place], [address] IG% 0.400 Normal 0.0-0.9 [facility] Comment on above: Result Comment: IG% - Immature Granulocytes (promyelocytes, myelocytes and metamyelocytes) > 1% indicates that a LEFT SHIFT is Present. Performed By: #### L 501.9520, L500.4100, L100.0100 ####[facility] [address] [place], [address] Lymphocytes/100 WBC (Bld) 17.0 % Low 19-41 [facility] Comment on above: Performed By: #### L 501.9520, L500.4100, L100.0100 ####[facility] [address] [place], [address] MCH (RBC) [Entitic mass] 27.8 pg Normal 27.0-32.0 [facility] Comment on above: Performed By: #### L 501.9520, L500.4100, L100.0100 ####[facility] [address] [place], [address] MCHC (RBC) [Mass/Vol] 34.7 g/dL Normal 32-36 [facility] Comment on above: Performed By: #### L 501.9520, L500.4100, L100.0100 ####[facility] [address] [place], [address] MCV (RBC) [Entitic vol] 80.1 fL Low 81-99 [facility] Comment on above: Performed By: #### L 501.9520, L500.4100, L100.0100 ####[facility] [address] [place], [address] Monocytes/100 WBC (Bld) 3.8 % Normal 0-10 [facility] Comment on above: Performed By: #### L 501.9520, L500.4100, L100.0100 ####[facility] [address] [place], [address] Neutrophils/100 WBC (Bld) 78.2 % High 47-70 [facility] Comment on above: Performed By: #### L 501.9520, L500.4100, L100.0100 ####[facility] [address] [place], [address] Nucleated RBC (Bld) [#/Vol] 0 10*3/uL Normal 0-5 [facility] Comment on above: Performed By: #### L 501.9520, L500.4100, L100.0100 ####[facility] [address] [place], [address] Platelet mean volume (Bld) [Entitic vol] 9.6 fL Normal 6.2-12.0 [facility] Comment on above: Performed By: #### L 501.9520, L500.4100, L100.0100 ####[facility] [address] [place], [address] Platelets (Bld) [#/Vol] 278 10*3/uL Normal 150-450 [facility] Comment on above: Performed By: #### L 501.9520, L500.4100, L100.0100 ####[facility] [address] [place], [address] RBC (Bld) [#/Vol] 5.18 10*6/uL Normal 4.2-5.4 [facility] Comment on above: Performed By: #### L 501.9520, L500.4100, L100.0100 ####[facility] [address] [place], [address] RDW SD 35.7 fl Normal 35.1-43.9 [facility] Comment on above: Performed By: #### L 501.9520, L500.4100, L100.0100 ####[facility] [address] [place], [address] WBC (Bld) [#/Vol] 9.1 10*3/uL Normal 4.4-11.[address] [facility] Comment on above: Performed By: #### L 501.9520, L500.4100, L100.0100 ####[facility] [address] [place], [address] Calculated very low density lipoprotein (VLDL) cholesterol measurementOrdered By: Jesse Barajas on 09-12-2024 Calculated very low density lipoprotein (VLDL) cholesterol measurement 16 mg/dL 5-40 [facility] Carbon dioxide, total [Moles /volume] in Central venous bloodOrdered By: Marivel Jagjit on 09-12-2024 CO2 [Moles/Vol] 18.4 mmol/L Low 21.0-32.0 [facility] Chloride assayOrdered By: Al ycia [place] on 09-12-2024 Chloride [Moles/Vol] 104 mmol/L 98-108 [facility] Comprehensive Metabolic Prof ilon 09-12-2024 Albumin [Mass/Vol] 4.5 g/dL Normal 3.5-5.[address] [facility] Comment on above: Performed By: #### L 500.4050, L509.6001 ####[facility] [address] [place], [address] Albumin/Globulin [Mass ratio] 1.4 {ratio} Normal 0.9-2.4 [facility] Comment on above: Performed By: #### L 500.4050, L509.6001 ####[facility] [address] [place], [address] ALK PHOS 106 U/L High 35-104 [facility] Comment on above: Performed By: #### L 500.4050, L509.6001 ####[facility] [address] [place], [address] ALT [Catalytic activity/Vol] 21 U/L Normal <=34 [facility] Comment on above: Performed By: #### L 500.4050, L509.6001 ####[facility] [address] [place], [address] AST [Catalytic activity/Vol] 22 U/L Normal <=31 [facility] Comment on above: Performed By: #### L 500.4050, L509.6001 ####[facility] [address] [place], [address] Bilirubin [Mass/Vol] 0.27 mg/dL Normal 0.00-1.30 [facility] Comment on above: Performed By: #### L 500.4050, L509.6001 ####[facility] [address] [place], [address] BUN/CRE 22.2 RATIO High 10-20 [facility] Comment on above: Performed By: #### L 500.4050, L509.6001 ####[facility] [address] [place], [address] Calcium [Mass/Vol] 9.5 mg/dL Normal 7.6-11.[address] [facility] Comment on above: Performed By: #### L 500.4050, L509.6001 ####[facility] [address] [place], [address] Chloride [Moles/Vol] 104 mmol/L Normal 98-108 [facility] Comment on above: Performed By: #### L 500.4050, L509.6001 ####[facility] [address] [place], [address] CO2 [Moles/Vol] 18.4 mmol/L Low 21.0-32.0 [facility] Comment on above: Performed By: #### L 500.4050, L509.6001 ####[facility] [address] [place], [address] Creatinine [Mass/Vol] 0.69 mg/dL Low 0.70-1.20 [facility] Comment on above: Performed By: #### L 500.4050, L509.6001 ####[facility] [address] [place], [address] GAP 15 Normal 5-15 [facility] Comment on above: Performed By: #### L 500.4050, L509.6001 ####[facility] [address] [place], [address] GFR/1.73 sq M.predicted among non-blacks MDRD (S/P/Bld) [Vol rate/Area] 118 mL/min/{1.73_m2} Normal >60 [facility] Comment on above: Result Comment: mL/m in/1.73m2 CKD-EPI Creatinine Equation (2020) Performed By: #### L 500.4050, L509.6001 ####[facility] [address] [place], [address] Globulin (S) [Mass/Vol] 3.3 g/dL Normal 2.2-4.2 [facility] Comment on above: Performed By: #### L 500.4050, L509.6001 ####[facility] [address] [place], [address] Glucose [Mass/Vol] 122 mg/dL High 70-[address] [facility] Comment on above: Performed By: #### L 500.4050, L509.6001 ####[facility] [address] [place], [address] Potassium [Moles/Vol] 4.2 mmol/L Normal 3.3-5.1 [facility] Comment on above: Performed By: #### L 500.4050, L509.6001 ####[facility] [address] [place], [address] Sodium [Moles/Vol] 137 mmol/L Normal 133-[address] [facility] Comment on above: Performed By: #### L 500.4050, L509.6001 ####[facility] [address] [place], [place], [address] T PROT 7.8 g/dL Normal 5.9-8.4 [facility] Comment on above: Performed By: #### L 500.4050, L509.6001 ####[facility] [address] [place], [place], [address] Urea nitrogen [Mass/Vol] 15 mg/dL Normal 4-19 [facility] Comment on above: Performed By: #### L 500.4050, L509.6001 ####[facility] [address] [place], [place], [address] Eosinophil percentageOrdered By: Jesse Barajas on 09-12-2024 Eosinophils/100 WBC (Bld) 0.4 % 0-5 [facility] Erythrocyte distribution wid th ratioOrdered By: Jesse Barajas on 09-12-2024 Erythrocyte distribution width (RBC) [Ratio] 12.3 % 11.6-14.6 [facility] Erythrocyte distribution wid th standard deviationOrdered By: Jesse Barajas on 09-12-2024 Erythrocyte distribution width (RBC) [Ratio] 35.7 fl 35.1-43.9 [facility] Glomerular filtration rate ( GFR) estimation/1.73 sq m using serum, plasma, or whole bOrdered By: Marivel Danielson on 09-12-2024 GFR/1.73 sq M.predicted among non-blacks MDRD (S/P/Bld) [Vol rate/Area] 118 mL/min/{1.73_m2} >60 [facility] Comment on above: mL/min/1.73m2 CKD-EP I Creatinine Equation (2020) Hematocrit Auto (Bld) [Volum e fraction]Ordered By: Jesse Barajas on 09-12-2024 Hematocrit (Bld) [Volume fraction] 41.5 % 37-47 [facility] Hemoglobin measurementOrdere d By: Jesse Barajas on 09-12-2024 Hemoglobin (Bld) [Mass/Vol] 14.4 g/dL 12.0-15.0 [facility] Immature granulocytes/100 WB C Auto (Bld)Ordered By: Jesse Barajas on 09-12-2024 Immature granulocytes/100 WBC (Bld) 0.400 % 0.0-0.9 [facility] Comment on above: IG% - Immature Granu locytes (promyelocytes, myelocytes and metamyelocytes) > 1% indicates that a LEFT SHIFT is Present. L509.6001on 09-12-2024 CORTISOL 0.51 ug/dL Low 6.02-18.40 [facility] Comment on above: Performed By: #### L 500.4050, L509.6001 ####[facility] [address] [place], [address] LDL calc ser/plasOrdered By: Jesse Barajas on 09-12-2024 Cholesterol in LDL [Mass/Vol] 125 mg/dL [facility] Comment on above: Imersearhl=177-364 m g/dL & Higher Oclv=650 mg/dL or greater Laboratory - Chemistry and C hemistry - challengeOrdered By: Marivel Danielson on 09-12-2024 AST [Catalytic activity/Vol] 22 U/L <32 [facility] Lipid Profileon 09-12-2024 CHOL:HDL 4.17 Normal [facility] Comment on above: Performed By: #### L 501.9520, L500.4100, L100.0100 ####[facility] [address] [place], [address] Cholesterol [Mass/Vol] 185 mg/dL Normal <=200 [facility] Comment on above: Result Comment: Chol esterol level, Desirable <200 mg/dL Borderline high cholesterol 200-239 mg/dL High cholesterol >=240 mg/dL Recommendations of the NCEP Adult Treatment Panel for the following risk-cutoff thresholds for the [place] population. Performed By: #### L 501.9520, L500.4100, L100.0100 ####[facility] [address] [place], [address] Cholesterol in HDL [Mass/Vol] 44 mg/dL Normal [facility] Comment on above: Result Comment: Monie onal Cholesterol Education Program (NCEP) guidelines: <40 mg/dL: Low HDL-cholesterol (major risk factor for CHD) >= 60 mg/dL: High HDL-cholesterol (negative risk factor for CHD) HDL-cholesterol is affected by a number of factors, e.g. smoking, exercise, hormones, sex and age. Performed By: #### L 501.9520, L500.4100, L100.0100 ####[facility] [address] [place], [address] Cholesterol in LDL [Mass/Vol] 125 mg/dL Normal [facility] Comment on above: Result Comment: Bord yqytdu=045-315 mg/dL Higher Yeco=981 mg/dL or greater Performed By: #### L 501.9520, L500.4100, L100.0100 ####[facility] [address] [place], [address] Cholesterol in VLDL [Mass/Vol] 16 mg/dL Normal 5-40 [facility] Comment on above: Performed By: #### L 501.9520, L500.4100, L100.0100 ####[facility] [address] [place], [address] Triglyceride [Mass/Vol] 78 mg/dL Normal [facility] Comment on above: Result Comment: The drugs N-Acetylcysteine and Metamizole may falsely depress this assay. Normal range: <150 mg/dL Borderline High: 150-199 mg/dL High: 200-499 mg/dL Very High: >500 mg/dL Performed By: #### L 501.9520, L500.4100, L100.0100 ####[facility] [address] [place], [address] MCV (mean corpuscular volume ) determinationOrdered By: Jsese Barajas on 09-12-2024 MCV (RBC) [Entitic vol] 80.1 fL Low 81-99 [facility] Mean corpuscular hemoglobin (MCH) determinationOrdered By: Jesse Barajas on 09-12-2024 MCH (RBC) [Entitic mass] 27.8 pg 27.0-32.0 [facility] Mean corpuscular hemoglobin concentration (MCHC) determinationOrdered By: Jesse Barajas on 09-12-2024 MCHC (RBC) [Mass/Vol] 34.7 g/dL 32-36 [facility] Mean platelet volume determi nationOrdered By: Jesse Barajas on 09-12-2024 Platelet mean volume (Bld) [Entitic vol] 9.6 fL 6.2-12.0 [facility] Monocyte percentageOrdered B y: Jesse Barajas on 09-12-2024 Monocytes/100 WBC (Bld) 3.8 % 0-10 [facility] Neutrophil percentageOrdered By: Jesse Barajas on 09-12-2024 Neutrophils/100 WBC (Bld) 78.2 % High 47-70 [facility] Nucleated red blood cell per centageOrdered By: Jesse Barajas on 09-12-2024 Nucleated RBC/100 WBC (Bld) [Ratio] 0 % 0-5 [facility] Platelet countOrdered By: Ayanna Barajas on 09-12-2024 Platelets (Bld) [#/Vol] 278 10*3/uL 150-450 [facility] Potassium measurement (mass/ volume)Ordered By: Marivel Danielson on 09-12-2024 Potassium (Unsp spec) [Mass/Vol] 4.2 mmol/L 3.3-5.1 [facility] RBC Auto (Bld) [#/Vol]Ordere d By: Jesse Barajas on 09-12-2024 RBC (Bld) [#/Vol] 5.18 10*6/uL 4.2-5.4 [facility] Screening total cholesterol/ high density lipoprotein (HDL) cholesterol ratioOrdered By: Jesse Barajas on 09-12-2024 Cholesterol.total/Choles terol in HDL [Mass ratio] 4.17 {ratio} [facility] Serum creatinine measurement (mass/volume)Ordered By: Marivel Danielson on 09-12-2024 Creatinine [Mass/Vol] 0.69 mg/dL Low 0.70-1.20 [facility] Serum globulin measurementOr dered By: Marivel Danielson on 09-12-2024 Globulin (S) [Mass/Vol] 3.3 g/dL 2.2-4.2 [facility] Serum glucose measurement (m ass/volume)Ordered By: Marivel Danielson on 09-12-2024 Glucose [Mass/Vol] 122 mg/dL High 70-[address] [facility] Serum or plasma alanine pérez otransferase (ALT) measurementOrdered By: Marivel Danielson on 09-12-2024 ALT [Catalytic activity/Vol] 21 U/L <35 [facility] Serum or plasma albumin niraj urement (mass/volume)Ordered By: Marivel Danielson on 09-12-2024 Albumin [Mass/Vol] 4.5 g/dL 3.5-5.[address] [facility] Serum or plasma albumin/glob ulin mass ratioOrdered By: Marivel Danielson on 09-12-2024 Albumin/Globulin [Mass ratio] 1.4 {ratio} 0.9-2.4 [facility] Serum or plasma alkaline candice sphatase measurementOrdered By: Marivel Danielson on 09-12-2024 ALP [Catalytic activity/Vol] 106 U/L High 35-104 [facility] Serum or plasma calcium niraj urement (mass/volume)Ordered By: Marivel Danielson on 09-12-2024 Calcium [Mass/Vol] 9.5 mg/dL 7.6-11.[address] [facility] Serum or plasma cholesterol in HDL measurement (mass/volume)Ordered By: Jesse Barajas on 09-12-2024 Cholesterol in HDL [Mass/Vol] 44 mg/dL >40 [facility] Comment on above: National Cholesterol Education Program (NCEP) guidelines:<40 mg/dL: Low HDL-cholesterol (major risk factor for CHD)>= 60 mg/dL: High HDL-cholesterol (negative risk factor for CHD)HDL-cholesterol is affected by a number of factors, e.g. smoking, exercise, hormones, sex and age. Serum or plasma cholesterol measurement (mass/volume)Ordered By: Jesse Barajas on 09-12-2024 Cholesterol [Mass/Vol] 185 mg/dL <201 [facility] Comment on above: Cholesterol level, D esirable <200 mg/dLBorderline high cholesterol 200-239 mg/dLHigh cholesterol >=240 mg/dLRecommendations of the NCEP Adult Treatment Panel for the following risk-cutoff thresholds for the [place] population. Serum or plasma cortisol sam surement (mass/volume)Ordered By: Marivel Danielson on 09-12-2024 Cortisol [Mass/Vol] 0.51 ug/dL Low 6.02-18.40 [facility] Serum or plasma urea nitroge n measurement (mass/volume)Ordered By: Marivel Danielson on 09-12-2024 Urea nitrogen [Mass/Vol] 15 mg/dL 4-19 [facility] Sodium levelOrdered By: Leno Danielson on 09-12-2024 Sodium [Moles/Vol] 137 mmol/L 133-[address] [facility] TSH DL <= 0.005 mIU/L QnOrde red By: Jesse Barajas on 09-12-2024 TSH Qn 1.260 uIU/mL 0.300-4.200 [facility] Thyroid Stim Hormone (TSH)on 09-12-2024 TSH 1.260 uIU/mL Normal 0.300-4.200 [facility] Comment on above: Performed By: #### L 501.9520, L500.4100, L100.0100 ####[facility] [address] [place], [place], [id number] Total proteinOrdered By: Arthur Danielson on 09-12-2024 Protein [Mass/Vol] 7.8 g/dL 5.9-8.[address] [facility] Triglycerides measurementOrd ered By: Jesse Barajas on 09-12-2024 Triglyceride [Mass/Vol] 78 mg/dL <199 [facility] Comment on above: The drugs N-Acetylcy steine and Metamizole may falsely depress this assay. Normal range: <150 mg/dLBorderline High: 150-199 mg/dLHigh: 200-499 mg/dLVery High: >500 mg/dL White blood cell (WBC) count Ordered By: Jesse Barajas on 09-12-2024 WBC (Bld) [#/Vol] 9.1 10*3/uL 4.4-11.[address] [facility] Internal Medicine Office Vis greg 09-09-2024 Internal Medicine Office Visit [facility] [address] [place] [address] OFFICE VISIT Date of Service: 09/10/24 MR#: [id number] Acct: [id number] Name: SHAWNANANCY Rep #: [id number] : 1990 Provider: Dr. 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 Required: No Accompanied by: Daughter Is patient in pain?: No Allergies Penicillins Allergy (Severe, Verified 09/10/24 09:01) Rash cefdinir (From Omnicef) Allergy (Verified 09/10/24 09:01) Anaphylaxis diazepam (From Valium) Adverse Reaction (Severe, Verified 09/10/24 09:01) Other hydrocodone (From Vicodin) Adverse Reaction (Severe, Verified 09/10/24 09:01) Other erythromycin base Adverse Reaction (Intermediate, Verified 09/10/24 09:01) vomiting Medications ???Medication ???Instructions ???Recorded ???Confirmed ???Type cetirizine 10 mg tablet (Zyrtec) 10 mg PO QHS allergy symptoms 01/1009/10/24 History metformin 500 mg tablet,extended 500 mg PO BID gdm 90 days #180 tab s 08/07/24 09/10/24 Rx release 24 hr medroxyprogesterone 2.5 mg tablet 2.5 mg PO QDAY #90 tabs 09/02/24 09/10/24 Rx dexamethasone 1 mg tablet 1 mg PO ONCE #1 TAB 09/10/2409/10 Rx labetalol 100 mg tablet 100 mg PO BID #180 tabs 09/10/24 0 09/10/24 Rx megestrol 20 mg tablet 20 mg PO DAILY PRN 09/10/24 Histo ry Nurse's Note: needs labetaolol refilled. Pt is inquiring on what else she can do for weight loss. She wants to be able to excercise more bgut it harder to do so as she is overweight. Pt does not have a goal weight. pt has tried dieting and increasing activity. [facility] Medical History (Updated 09/10/24 @ 09:[address] 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 Marivel Danielson MD) Father Hypertension Celiac disease Mother Prediabetes Grandfather Prostate cancer Cancer melanoma Grandmother TIA (transient ischemic attack) Grandfather Heart disease Myocardial infarction Grandmother Fibromyalgia Rheumatoid arthritis Aunt HELLP (hemolytic anemia/elev liver enzymes/low platelets in ) Unknown Pre-eclampsia Sister Bleeding disorder, Onset Age: 21 essential thrombocythemia (blood cancer) Asthma Brother Asthma Daughter Tracheo-esophageal fistula Dermatitis Monoallelic mutation of GDF1 gene GERD (gastroesophageal reflux disease) Social History adopted: No household members: spouse and children housing: apartment number of children: 2 current occupational status: employed 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 1. Little interest or pleasure in doing things: not at all 2. Feeling down, depressed, or hopeless: not at all 3. Trouble falling or staying asleep, or sleeping too much: several days 4. Feeling tired or having little energy: several days 5. Poor appetite or overeating: several days 6. Feeling bad about yourself - or that you are a failure or have let yourself and your family down: not at all 7. Trouble concentrating on things, such as reading the newspaper or watching television: not at all 8. Moving or speaking so slowly that other people could have noticed? - Or the opposite - being so (more content not included)... Normal [facility] Calculated very low density lipoprotein (VLDL) cholesterol measurementOrdered By: Crissy Freire on 09-03-2024 Calculated very low density lipoprotein (VLDL) cholesterol measurement 30 mg/dL 5-40 [facility] Glucoseon 09-03-2024 Glucose [Mass/Vol] 103 mg/dL High 70-[address] [facility] Comment on above: Performed By: #### L 501.0100, L500.4100, L501.9520, L506.1001, L501.9985 #### [facility] [address] [place], [place], [address] Hemoglobin A1con 09-03-2024 HbA1c (Bld) [Mass fraction] 5.4 % Normal <=5.6 [facility] Comment on above: Result Comment: Norm al < 5.7 % Prediabetic 5.7 - 6.4 % Diabetic >or= 6.5 % Please note range changes. Performed By: #### L 501.0100, L500.4100, L501.9520, L506.1001, L501.9985 #### [facility] [address] [place], [place], [address] Hemoglobin A1c percentageOrd ered By: Crissy Tani on 09-03-2024 HbA1c (Bld) [Mass fraction] 5.4 % <5.7 [facility] Comment on above: Normal < 5.7 % Predi abetic 5.7 - 6.4 % Diabetic >or= 6.5 % Please note range changes. LDL calc ser/plasOrdered By: Crissy Freier on 09-03-2024 Cholesterol in LDL [Mass/Vol] 125 mg/dL [facility] Comment on above: Edsrtqynaa=368-722 m g/dL & Higher Qloc=463 mg/dL or greater Lipid Profileon 09-03-2024 CHOL:HDL 5.03 Normal [facility] Comment on above: Performed By: #### L 501.0100, L500.4100, L501.9520, L506.1001, L501.9985 #### [facility] [address] [place], [address] Cholesterol [Mass/Vol] 193 mg/dL Normal <=200 [facility] Comment on above: Result Comment: Chol esterol level, Desirable <200 mg/dL Borderline high cholesterol 200-239 mg/dL High cholesterol >=240 mg/dL Recommendations of the NCEP Adult Treatment Panel for the following risk-cutoff thresholds for the [place] population. Performed By: #### L 501.0100, L500.4100, L501.9520, L506.1001, L501.9985 #### [facility] [address] [place], [address] Cholesterol in HDL [Mass/Vol] 38 mg/dL Low [facility] Comment on above: Result Comment: Monie onal Cholesterol Education Program (NCEP) guidelines: <40 mg/dL: Low HDL-cholesterol (major risk factor for CHD) >= 60 mg/dL: High HDL-cholesterol (negative risk factor for CHD) HDL-cholesterol is affected by a number of factors, e.g. smoking, exercise, hormones, sex and age. Performed By: #### L 501.0100, L500.4100, L501.9520, L506.1001, L501.9985 #### [facility] [address] [place], [address] Cholesterol in LDL [Mass/Vol] 125 mg/dL Normal [facility] Comment on above: Result Comment: Bord vvcvge=865-630 mg/dL Higher Ursl=714 mg/dL or greater Performed By: #### L 501.0100, L500.4100, L501.9520, L506.1001, L501.9985 #### [facility] [address] [place], [address] Cholesterol in VLDL [Mass/Vol] 30 mg/dL Normal 5-40 [facility] Comment on above: Performed By: #### L 501.0100, L500.4100, L501.9520, L506.1001, L501.9985 #### [facility] [address] [place], [address] Triglyceride [Mass/Vol] 150 mg/dL Normal [facility] Comment on above: Result Comment: The drugs N-Acetylcysteine and Metamizole may falsely depress this assay. Normal range: <150 mg/dL Borderline High: 150-199 mg/dL High: 200-499 mg/dL Very High: >500 mg/dL Performed By: #### L 501.0100, L500.4100, L501.9520, L506.1001, L501.9985 #### [facility] [address] [place], [address] Screening total cholesterol/ high density lipoprotein (HDL) cholesterol ratioOrdered By: Crissy Freire on 09-03-2024 Cholesterol.total/Choles terol in HDL [Mass ratio] 5.03 {ratio} [facility] Serum glucose measurement (m ass/volume)Ordered By: Crissy Freire on 09-03-2024 Glucose [Mass/Vol] 103 mg/dL High 70-[address] [facility] Serum or plasma cholesterol in HDL measurement (mass/volume)Ordered By: Crissy Freire on 09-03-2024 Cholesterol in HDL [Mass/Vol] 38 mg/dL Low >40 [facility] Comment on above: National Cholesterol Education Program (NCEP) guidelines:<40 mg/dL: Low HDL-cholesterol (major risk factor for CHD)>= 60 mg/dL: High HDL-cholesterol (negative risk factor for CHD)HDL-cholesterol is affected by a number of factors, e.g. smoking, exercise, hormones, sex and age. Serum or plasma cholesterol measurement (mass/volume)Ordered By: Crissy Freire on 09-03-2024 Cholesterol [Mass/Vol] 193 mg/dL <201 [facility] Comment on above: Cholesterol level, D esirable <200 mg/dLBorderline high cholesterol 200-239 mg/dLHigh cholesterol >=240 mg/dLRecommendations of the NCEP Adult Treatment Panel for the following risk-cutoff thresholds for the [place] population. TSH DL <= 0.005 mIU/L QnOrde red By: Crissy Freire on 09-03-2024 TSH Qn 2.180 uIU/mL 0.300-4.200 [facility] Thyroid Stim Hormone (TSH)on 09-03-2024 TSH 2.180 uIU/mL Normal 0.300-4.200 [facility] Comment on above: Performed By: #### L 501.0100, L500.4100, L501.9520, L506.1001, L501.9985 #### [facility] [address] [place] [address]. [place], [place], [id number] Triglycerides measurementOrd ered By: Crissy Freire on 09-03-2024 Triglyceride [Mass/Vol] 150 mg/dL <199 [facility] Comment on above: The drugs N-Acetylcy steine and Metamizole may falsely depress this assay. Normal range: <150 mg/dLBorderline High: 150-199 mg/dLHigh: 200-499 mg/dLVery High: >500 mg/dL Vitamin D,25 Hydroxyon 09-03 Vitamin D 25-OH 32.9 ng/mL Normal 30-100 [facility] Comment on above: Result Comment: Jacklyn min D Status Deficiency: <20 ng/mL (50nmol/L) Insufficiency: 20-30 ng/mL (50-75 nmol/L) Sufficiency: 30-100 ng/mL (75-250 nmol/L) Toxicity: >100 ng/mL (>250 nmol/L) Performed By: #### L 501.0100, L500.4100, L501.9520, L506.1001, L501.9985 #### [facility] [address] [place], [address] [employer]aire[employer] Office Visit Reporton 09-02-2024 Aircraft Pneudraulics Repairer Office Visit Report [facility]'[address], [address] [place] [address] OFFICE VISIT Date of Service: 09/02/24 MR#: [id number] Acct: [id number] Name: SHAWNANANCYELL Rep #: [id number] : 1990 Provider: Dr. 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) Concert Promoter Required: No Is patient in pain?: No Allergies Penicillins Allergy (Severe, Verified 09/02/24 08:30) Rash cefdinir (From Omnicef) Allergy (Verified 09/02/24 08:30) Anaphylaxis diazepam (From Valium) Adverse Reaction (Severe, Verified 09/02/24 08:30) Other hydrocodone (From Vicodin) Adverse Reaction (Severe, Verified 09/02/24 08:30) Other erythromycin base Adverse Reaction (Intermediate, Verified 09/02/24 08:30) vomiting Medications ???Medication ???Instructions ???Recorded ???Confirmed ???Type cetirizine 10 mg tablet (Zyrtec) 10 mg PO QHS allergy symptoms 01/1009/02/24 History labetalol 100 mg tablet 100 mg PO BID #180 tabs 04/10/24 0 09/02/24 Rx megestrol 20 mg tablet 20 mg PO DAILY #30 tabs 07/22/24 0 09/02/24 Rx metformin 500 mg tablet,extended 500 mg PO BID gdm 90 days #180 tab s 08/07/24 09/02/24 Rx release 24 hr medroxyprogesterone 2.5 mg tablet 2.5 mg PO QDAY #90 tabs 09/02/24 09/02/24 Rx Post menopausal: No Patient : No : No PFSH Medical History PCOS (polycystic ovarian syndrome) GBS (group B Streptococcus carrier), +RV culture, currently delivery delivered Asthma Amenorrhea Infertility Hypertension Intertriginous dermatitis associated with moisture Sinusitis Gestational diabetes mellitus Abnormal ultrasound Cleft lip and palate, , affecting care of mother, antepartum Skin cyst Seasonal allergies Surgical History H/O tubal ligation History of History of wisdom tooth extraction, class IV edentulism H/O nasal septoplasty Family History Father Hypertension Mother Diabetes Grandfather Cancer Grandmother TIA (transient ischemic attack) Grandfather Heart disease Myocardial infarction Grandmother Rheumatoid arteritis Fibromyalgia Aunt HELLP (hemolytic anemia/elev liver enzymes/low platelets in ) Unknown Pre-eclampsia Sister Bleeding disorder, Onset Age: 21 essential thrombocythemia (blood cancer) Social History adopted: No household members: spouse housing: apartment number of children: 2 current occupational status: employed 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 Last PAP: 09/02/23 History of abnormal PAP: no Last mammogram: n/a History of abnormal mammogram: n/a Colon cancer screening: n/a Other preventative health care screenings: due for labs still has every day spotting on micronor Female Reproductive History Cycle Length: 21-35 Bleeding Duration: 5 Questions: metorrhagia: No, sexually active: Yes, dyspareunia: No and PCB: No Menopausal Symptoms: No hot flashes, No night sweats, No weight change, No mood changes, No difficulty concentrating, No sleep problems and No change in libido ROS Const Constitutional: Reports as per HPI; Denies fatigue, increased appetite, poor appetite, night sweats, weight gain or weight loss Cardio Card: Denies chest pain Resp Resp: Denies co (more content not included)... Normal [facility] [employer] P[employer]raulics Repairer Office Visit Reporton 08-07-2024 Aircraft Pneudraulics Repairer Office Visit Report [facility] [address], [address] [place] [address] OFFICE VISIT Date of Service: 08/07/24 MR#: [id number] Acct: [id number] Name: NANCY MATOS Rep #: [id number] : 1990 Provider: Dr. Crissy An, DO Age/Sex: 33/F [place] [facility] [place]: Signed Intake Vital Signs 07/22/24 09:37 08/07/24 14:07 08/07/24 14:09 Height 5 ft 4 in 5 ft 4 in 5 ft 4 in Weight: 263 lb 4 oz BMI 45.1 BP 123/85 H Intake Visit Reasons: ER FU- AUB *copay $30 Concert Promoter Required: No Is patient in pain?: No Allergies Penicillins Allergy (Severe, Verified 08/07/24 14:07) Rash cefdinir (From Omnicef) Allergy (Verified 08/07/24 14:07) Anaphylaxis diazepam (From Valium) Adverse Reaction (Severe, Verified 08/07/24 14:07) Other hydrocodone (From Vicodin) Adverse Reaction (Severe, Verified 08/07/24 14:07) Other erythromycin base Adverse Reaction (Intermediate, Verified 08/07/24 14:07) vomiting Medications ???Medication ???Instructions ???Recorded ???Confirmed ???Type cetirizine 10 mg tablet (Zyrtec) 10 mg PO QHS allergy symptoms 01/1008/07/24 History labetalol 100 mg tablet 100 mg PO BID #180 tabs 04/10/24 0 08/07/24 Rx megestrol 20 mg tablet 20 mg PO DAILY #30 tabs 07/22/24 0 08/07/24 Rx metformin 500 mg tablet,extended 500 mg PO BID gdm 90 days #180 tab s 08/07/24 08/07/24 Rx release 24 hr norethindrone (contraceptive) 0.35 0.35 mg PO DAILY 90 days #90 tab s 08/07/24 08/07/24 Rx mg tablet (Ortho Micronor) Post menopausal: No Patient : No : No PFSH Medical History PCOS (polycystic ovarian syndrome) GBS (group B Streptococcus carrier), +RV culture, currently delivery delivered Asthma Amenorrhea Infertility Hypertension Intertriginous dermatitis associated with moisture Sinusitis Gestational diabetes mellitus Abnormal ultrasound Cleft lip and palate, , affecting care of mother, antepartum Skin cyst Seasonal allergies Surgical History H/O tubal ligation History of History of wisdom tooth extraction, class IV edentulism H/O nasal septoplasty Family History Father Hypertension Mother Diabetes Grandfather Cancer Grandmother TIA (transient ischemic attack) Grandfather Heart disease Myocardial infarction Grandmother Rheumatoid arteritis Fibromyalgia Aunt HELLP (hemolytic anemia/elev liver enzymes/low platelets in ) Unknown Pre-eclampsia Sister Bleeding disorder, Onset Age: 21 essential thrombocythemia (blood cancer) Social History adopted: No household members: spouse housing: apartment number of children: 2 current occupational status: employed 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 She has been using megace for last 2 weeks and the bleeding finally stopped. She has known PCOS in the past and meformin helped. History 2 Elective abortions Hx Para 2 Spontaneous abortions Hx # Term Pregnancies 2 Ectopic pregnancies Hx # Pregnancies Multiple births # of living children 2 Past Pregnancies Del. Date Name GA/Weeks Outcome Route Bth Weight [facility]/17[facility]20 Fahad 37 live - full term 4lbs 3oz Female Guillaume Kelly 07/20/23 Wilbur 38 live - full term 6lbs 15oz Male [facility] Delivery Date: 01/17/20 Last Updated by: Mary Blackburn Diabetes, Pre-eclampsia, Breech ROS Const ROS Unobtainable: All systems reviewed are unremarkable except as noted in H Resp Resp: Reports system reviewed and no additional complaints, except as documented; Denies cough GI GI: Reports as per HPI Psych Psych: Reports system reviewed and no additional complaints, except as documented Exam Const General: cooperative, healthy appearing, comfortable and no acute distress Resp Effort Inspection: normal respiratory effort Skin General: no rashes or lesions noted Psych Appearance: grossly normal Speech and Movement: (more content not included)... Normal [facility] Absolute lymphocyte countOrd ered By: Abram Watters on 07-22-2024 Lymphocytes Auto (Unsp spec) [#/Vol] 2.18 10*3/uL 0.83-4.51 [facility] Absolute neutrophil countOrd ered By: Abramlela Watters on 07-22-2024 Neutrophils (Bld) [#/Vol] 6.0 10*3/uL 2.0-7.7 [facility] Automated blood erythrocyte countOrdered By: Abramlela Watters on 07-22-2024 RBC (Bld) [#/Vol] 5.24 10*6/uL Normal 4.2-5.4 [facility] Comment on above: Performed By: #### L 700.8000, L100.0100 #### [facility] [address] [place], [place], [id number] Automated blood hematocrit ( percentage)Ordered By: Abram Watters on 07-22-2024 Hematocrit (Bld) [Volume fraction] 42.7 % Normal 37-47 [facility] Comment on above: Performed By: #### L 700.8000, L100.0100 #### [facility] [address] [place], [address] Automated lymphocyte count a s percentage of total leukocytesOrdered By: Abram Watters on 07-22-2024 Lymphocytes/100 WBC Auto (Unsp spec) 24.5 % 19-41 [facility] Basophil percentageOrdered B y: Abram Watters on 07-22-2024 Basophils/100 WBC (Bld) 0.4 % Normal 0-1 [facility] Comment on above: Performed By: #### L 700.8000, L100.0100 #### [facility] [address] [place], [address] CBC W/Diff, Automatedon 07-09 Absolute Lymph 2.18 X10 3/uL Normal 0.83-4.51 [facility] Comment on above: Performed By: #### L 700.8000, L100.0100 #### [facility] [address] [place], [address] Absolute Neut 6.0 X10 3/uL Normal 2.0-7.7 [facility] Comment on above: Performed By: #### L 700.8000, L100.0100 #### [facility] [address] [place], [address] IG% 0.400 Normal 0.0-0.9 [facility] Comment on above: Result Comment: IG% - Immature Granulocytes (promyelocytes, myelocytes and metamyelocytes) > 1% indicates that a LEFT SHIFT is Present. Performed By: #### L 700.8000, L100.0100 #### [facility] [address] [place], [address] Lymphocytes/100 WBC (Bld) 24.5 % Normal 19-41 [facility] Comment on above: Performed By: #### L 700.8000, L100.0100 #### [facility] [address] [place], [address] Nucleated RBC (Bld) [#/Vol] 0 10*3/uL Normal 0-5 [facility] Comment on above: Performed By: #### L 700.8000, L100.0100 #### [facility] [address] [place], [address] RDW SD 36.5 fl Normal 35.1-43.9 [facility] Comment on above: Performed By: #### L 700.8000, L100.0100 #### [facility] [address] [place], [address] Emergency Department Summary on 07-22-2024 Emergency Department Summary [facility] Medical Records Department [address] [place] [address] Emergency Department Summary 07/22/24 MR#: [id number] Acct: [id number] Name: NANCY MATOS Rep #: [id number] : 1990 33 From: Abram Watters MD PCP: Dr. Marivel Danielson MD Status:REG ER Location: ED HPI HPI - Female History of Present Illness Chief Complaint: Vag Bleeding Detail of Chief Complaint: Vaginal bleeding that started last evening Informant: patient Pain Pain: Positive for Pelvic Pain; Negative for Vulvar Pain or Vaginal Pain Onset: Yesterday Context: Sudden Onset Timing: Continuous and Waxes and wanes Quality: Positive for Cramping Location: RLQ, LLQ and Back (Over the sacral lumbar region) Current Severity: Mild Maximum Severity: Moderate Worsened by: Movement and [place] Relieved by: Remaining Still Bleeding Issue: Positive for Vaginal bleeding and Passing clots Onset: Yesterday Context: Sudden Onset Timing: Continuous Current Severity: Heavy (Passing golf ball size clots.) Current pads/hr: 1 Maximum Severity: Heavy Associated Symptoms Associated Symptoms: Positive for - (Patient is not had a menstrual period since June 2023.); Negative for Dysuria, Frequency, Urgency or Hematuria Sexually: Positive for Active Control: BTL Narrative Narrative: Patient is a 33-year-old female. She is bleeding heavily. She is going through a super tampon every 90 minutes. She denies orthostatic symptoms. Denies dyspnea or dyspnea on exertion. She does endorse cramping lower bilateral pain and pain in the sacral lumbar region. She does have history of polycystic ovarian syndrome. BMI is 44.7. She is sexually active. She is status post tubal ligation after the of her son last year. She is not on control pills presently. She was when she was younger because of painful menses with heavy bleeding. Patient denies fever, chills night sweats. Patient denies urologic symptoms. Patient denies bruising easily. She is on no antithrombotic or anticoagulant. She did contact her cloth seconds sorter, Dr. Elaina Castanon. Office recommended she come to the emergency room because of the amount of bleeding. Prior similar symptoms: No Recent Illness/Hospitalizat ion: No PFSH PFSH Medical History PCOS (polycystic ovarian syndrome) GBS (group B Streptococcus carrier), +RV culture, currently delivery delivered Asthma Amenorrhea Infertility Hypertension Intertriginous dermatitis associated with moisture Sinusitis Gestational diabetes mellitus Abnormal ultrasound Cleft lip and palate, , affecting care of mother, antepartum Skin cyst Seasonal allergies Home Medications ???Medication ???Instructions ???Recorded ???Last Taken ???Type cetirizine 10 mg tablet (Zyrtec) 10 mg PO QHS allergy symptoms 01/1007/21/24 History vitamin#30 30 mg iron-10 1 cap PO DAILY SUPPLEMENT 3 07/22/24 History mg iron-folic acid 1 mg-omg3 capsule labetalol 100 mg tablet 100 mg PO BID #180 tabs 04/10/24 0 07/22/24 Rx fluticasone propionate 50 1 spray intranasal QHS PRN allergy 07/22/24 07/21/24 History mcg/actuation nasal symptoms spray,suspension (24 Hour Allergy Relief) megestrol 20 mg tablet 20 mg PO DAILY #30 tabs 07/22/24 U nknown Rx Allergy/AdvReac Type Severity Reaction Status Date / Time Penicillins Allergy Severe Rash Verified 07/22/24 09:56 cefdinir (From Omnicef) Allergy Anaphylaxis Verified 07/22/24 09:56 diazepam (From Valium) AdvReac Severe Other Verified 07/22/24 09:56 hydrocodone (From Vicodin) AdvReac Severe Other Verified 07/22/24 09:56 erythromycin base AdvReac Intermediate vomiting Verified 07/22/24 09:56 Family History Father Hypertension Mother Diabetes Grandfather Cancer Grandmother TIA (transient ischemic attack) Grandfather Heart disease Myocardial infarction Grandmother Rheumatoid arteritis Fibromyalgia Aunt HELLP (hemolytic anemia/elev liver enzymes/low platelets in ) Unknown Pre-eclampsia Sister Bleeding disorder, Onset Age: 21 essential thrombocythemia (blood cancer) Surgical History H/O tubal ligation History of History of wisdom tooth extraction, class IV edentulism H/O nasal septoplasty Social History adopted: No household members: spouse housing: apartment number of children: 2 current occupational status: employed 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 Normal [facility] Eosinophil percentageOrdered By: Abram Watters on 07-22-2024 Eosinophils/100 WBC (Bld) 1.7 % Normal 0-5 [facility] Comment on above: Performed By: #### L 700.8000, L100.0100 #### [facility] [address] [place], [address] Erythrocyte distribution wid th ratioOrdered By: Abramlela Watters on 07-22-2024 Erythrocyte distribution width (RBC) [Ratio] 12.5 % Normal 11.6-14.6 [facility] Comment on above: Performed By: #### L 700.8000, L100.0100 #### [facility] [address] [place], [address] Erythrocyte distribution wid th standard deviationOrdered By: Abramlela Watters on 07-22-2024 Erythrocyte distribution width (RBC) [Ratio] 36.5 fl 35.1-43.9 [facility] Hemoglobin measurementOrdere d By: Abram Watters on 07-22-2024 Hemoglobin (Bld) [Mass/Vol] 14.9 g/dL Normal 12.0-15.0 [facility] Comment on above: Performed By: #### L 700.8000, L100.0100 #### [facility] [address] [place], [address] Immature granulocytes/100 WB C Auto (Bld)Ordered By: Abram Watters on 07-22-2024 Immature granulocytes/100 WBC (Bld) 0.400 % 0.0-0.9 [facility] Comment on above: IG% - Immature Granu locytes (promyelocytes, myelocytes and metamyelocytes) > 1% indicates that a LEFT SHIFT is Present. MCV (mean corpuscular volume ) determinationOrdered By: Abram Watters on 07-22-2024 MCV (RBC) [Entitic vol] 81.5 fL Normal 81-99 [facility] Comment on above: Performed By: #### L 700.8000, L100.0100 #### [facility] [address] [place], [address] Mean corpuscular hemoglobin (MCH) determinationOrdered By: Abram Watters on 07-22-2024 MCH (RBC) [Entitic mass] 28.4 pg Normal 27.0-32.0 [facility] Comment on above: Performed By: #### L 700.8000, L100.0100 #### [facility] [address] [place], [address] Mean corpuscular hemoglobin concentration (MCHC) determinationOrdered By: Abram Watters on 07-22-2024 MCHC (RBC) [Mass/Vol] 34.9 g/dL Normal 32-36 [facility] Comment on above: Performed By: #### L 700.8000, L100.0100 #### [facility] Laboratory [address] [place], [address] Mean platelet volume determi nationOrdered By: Abram Watters on 07-22-2024 Platelet mean volume (Bld) [Entitic vol] 9.5 fL Normal 6.2-12.0 [facility] Comment on above: Performed By: #### L 700.8000, L100.0100 #### [facility] Laboratory [address] [place], [address] Monocyte percentageOrdered B y: Abram Watters on 07-22-2024 Monocytes/100 WBC (Bld) 5.5 % Normal 0-10 [facility] Comment on above: Performed By: #### L 700.8000, L100.0100 #### [facility] [address] [place], [address] Neutrophil percentageOrdered By: Abram Watters on 07-22-2024 Neutrophils/100 WBC (Bld) 67.5 % Normal 47-70 [facility] Comment on above: Performed By: #### L 700.8000, L100.0100 #### [facility] [address] [place], [address] Nucleated red blood cell per centageOrdered By: Abram Watters on 07-22-2024 Nucleated RBC/100 WBC (Bld) [Ratio] 0 % 0-5 [facility] Platelet countOrdered By: Ug o Wattesr on 07-22-2024 Platelets (Bld) [#/Vol] 271 10*3/uL Normal 150-450 [facility] Comment on above: Performed By: #### L 700.8000, L100.0100 #### [facility] [address] [place], [place], [address] Serum human chorionic gonado tropin detection for pregnancyOrdered By: Abram Watters on 07-22-2024 HCG ( test) Ql < 1 mIU/mL <9 [facility] Comment on above: Gestational Age0.2-1 Week: 5-50 mIU/mL1-2 Weeks: 50-500 mIU/mL2-3 Weeks: 100-5000 mIU/mL3-4 Weeks: 500-10,000 mIU/mL4-5 Weeks:1000-50,000 mIU/mL5-6 Weeks: 10,000-100,000 mIU/mL6-8 Weeks: 15,000-200,000 mIU/mL2-3 Months:10,000-100,000 mIU/mL Transvaginal Non-on 07-22-2024 Transvaginal Non- [facility] Imaging Services [address] [place], [place] [address] Transvaginal Non- MR#: [id number] Acct: [id number] Name: SHAWNANANCYELL Rep #: [id number] : 1990 F 33 From: Keith Stapleton MD PCP: Dr. Marivel Danielson MD Status: REG ER Study: Transvaginal Non- Date of Exam: Exam# [id number] Ordering Dr: Abram Watters MD PROCEDURE: TRANSVAGINAL NON- 07/22/2024 REASON FOR EXAM: HEAVY VAGINAL BLEEDING WITH CLOTS, HCG NEGATIVE TECHNIQUE: Transabdominal and transvaginal pelvic ultrasound COMPARISON: None FINDINGS: The uterus measures 8.1 x 5.2 x 3.9 cm and appears anteverted, and retroflexed. There is no uterine fibroid or mass. The endometrium measures 0.5 cm. Nabothian cysts are noted. The right ovary measures 3.4 x 3.3 x 2.8 cm, volume = 16 cc. The left ovary measures 3.6 x 4.2 x 3.2 cm, volume = 25 cc. There are greater than 10 subcentimeter follicles visible on the left ovary. There is no adnexal mass or free fluid. US/Transvaginal Non- IMPRESSION: The ovaries meet the criteria for polycystic ovary syndrome. The endometrium measures 0.5 cm. Reading Location: [facility] CC: Dr. Marivel Danielson MD; Dr. Abram Watters MD Supervisor Costuming: Signed Normal [facility] White blood cell (WBC) count Ordered By: Abram Watters on 07-22-2024 WBC (Bld) [#/Vol] 8.9 10*3/uL Normal 4.4-11.[address] [facility] Comment on above: Performed By: #### L 700.8000, L100.0100 #### [facility] Laboratory [facility] [place], [address] hCG Titer Quant., Serumon HCG QUANT. < 1 Normal <9 non-preg [facility] Comment on above: Result Comment: Gest ational Age 0.2-1 Week: 5-50 mIU/mL 1-2 Weeks: 50-500 mIU/mL 2-3 Weeks: 100-5000 mIU/mL 3-4 Weeks: 500-10,000 mIU/mL 4-5 Weeks:1000-50,000 mIU/mL 5-6 Weeks: 10,000-100,000 mIU/mL 6-8 Weeks: 15,000-200,000 mIU/mL 2-3 Months:10,000-100,000 mIU/mL Performed By: #### L 700.8000, L100.0100 #### [facility] [address] [place], [address] Urgent Care Visit Reporton 0 06-02-2024 Urgent Care Visit Report [facility] [address], [address] [place] [address] OFFICE VISIT Date of Service: 06/02/24 MR#: [id number] Acct: [id number] Name: SHAWNANANCYELL Rep #: [id number] : 1990 Provider: CIERA Chan Age/Sex: 33/F Location: [facility] Status: Signed Intake Vital Signs 04/10/24 10:42 06/02/24 16:31 Height 5 ft 4 in Weight: 246 lb 2 oz BMI 42.2 BP 120/78 112/70 Blood Pressure Location Rt brachial Lt brachial Position Sitting Sitting Respiration 16 16 Pulse 71 86 Pulse Source Monitor NIBP Temp 96.2 F L 97.8 F Temp Source Temporal Oral Pulse Oximetry (%) 98 96 Oxygen Delivery Method room air room air Intake Visit Reasons: L EAR PAIN/SINUS PRESSURE/DIZZINESS Chief Complaint: left ear pain, congest, dizzy Concert Promoter Required: No Is patient in pain?: Yes Allergies Penicillins Allergy (Severe, Verified 06/02/24 16:33) Rash cefdinir (From Omnicef) Allergy (Verified 06/02/24 16:33) Anaphylaxis diazepam (From Valium) Adverse Reaction (Severe, Verified 06/02/24 16:33) Other hydrocodone (From Vicodin) Adverse Reaction (Severe, Verified 06/02/24 16:33) Other erythromycin base Adverse Reaction (Intermediate, Verified 06/02/24 16:33) vomiting Is last menstrual period known: No Post menopausal: No Patient : No Have you fallen in the past year?: No Nurse's Note: left ear pain, congest, dizzy with blowing nose only. hears squeek or air blowing in left ear with nose blowing. denies fever, cough, CAMEJO, BA. denies dizziness with change of position. s/s for over a week [facility] Medical History PCOS (polycystic ovarian syndrome) GBS (group B Streptococcus carrier), +RV culture, currently delivery delivered Asthma Amenorrhea Infertility Hypertension Intertriginous dermatitis associated with moisture Sinusitis Gestational diabetes mellitus Abnormal ultrasound Cleft lip and palate, , affecting care of mother, antepartum Skin cyst Seasonal allergies Surgical History H/O tubal ligation History of History of wisdom tooth extraction, class IV edentulism H/O nasal septoplasty Family History Father Hypertension Mother Diabetes Grandfather Cancer Grandmother TIA (transient ischemic attack) Grandfather Heart disease Myocardial infarction Grandmother Rheumatoid arteritis Fibromyalgia Aunt HELLP (hemolytic anemia/elev liver enzymes/low platelets in ) Unknown Pre-eclampsia Sister Bleeding disorder, Onset Age: 21 essential thrombocythemia (blood cancer) Social History adopted: No household members: spouse housing: apartment number of children: 2 current occupational status: employed 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 pets and animals: Yes (2) pets and animals: dog(s) history of recent travel: No sexually active: Yes Smoking Status: Never smoker second hand exposure: No alcohol intake: never substance use type: does not use diet: low salt caffeine: Yes (2) Type: coffee frequency: 1-2 times per week nick/taoism: Jain seatbelt use: always do you feel safe at home: Yes additional social history: - Robin (ODOT) HPI HPI Chief Complaint: left ear pain, congest, dizzy Details: NANCY MATOS, is a 33 F who presents to the office today [facility] for approximately 1-week history of progressively worsening left facial pressure/congestion with purulent postnasal drip and left ear pressure. No complaints of fever, chills, myalgias, fatigue, runny nose, or nausea/vomiting/diar marguerite. No complaints of chest pain/shortness of breath/dyspnea on exertion. No close contacts with similar complaints. No other associated symptoms and no other alleviating/aggravat ing factors. ROS Const Constitutional: No other (as above) Exam Const General: cooperative, healthy appearing and no acute distress Nutritional Appearance: average body habitus Orientation: alert, awake and oriented x3 HENMT Head: normal to inspection Ears: hearing grossly normal bilaterally, external ears normal, TM's normal right/ trace erythema bulging left, and EAC's normal Nose: external nose normal, nares normal, septum normal and no nasal discharge Face and sinus: normal facial exam, left maxillary sinuses palpable tender (w/ left maxillary fullness to palpation) and face symmetric Mouth: oral mucosae normal, lip normal, tongue normal and oropharynx normal Throat: posterior oropharynx normal, tonsils normal, uvula midline and postnasal drainage (scant amount purulent) Eyes General: appearance normal, both eyes a (more content not included)... Normal [facility] Internal Medicine Office Vis ito 04-10-2024 Internal Medicine Office Visit [facility] [address] [place] [address] [place] [address] OFFICE VISIT Date of Service: 04/10/24 MR#: [id number] Acct: [id number] Name: SHAWNANANCYAME DAVID Rep #: [id number] : 1990 Provider: CIERA Noyola Age/Sex: 33/F Location: [facility] Status: Signed Intake Vital Signs 12/19/23 14:24 04/10/24 10:42 Height 5 ft 4 in 5 ft 4 in Weight: 246 lb 2 oz BMI 42.2 BP 120/78 Blood Pressure Location Rt brachial Position Sitting Respiration 16 Pulse 71 Pulse Source Monitor Temp 96.2 F L Temp Source Temporal Pulse Oximetry (%) 98 Oxygen Delivery Method room air Intake Visit Reasons: ACUTE MED FU-SIDNEY PT WANTS TO RE-EST WITH JAGJIT Chief Complaint: 3 M FU Concert Promoter Required: No Accompanied by: Self Is patient in pain?: No Allergies Penicillins Allergy (Severe, Verified 04/10/24 10:41) Rash cefdinir (From Omnicef) Allergy (Verified 04/10/24 10:41) Anaphylaxis diazepam (From Valium) Adverse Reaction (Severe, Verified 04/10/24 10:41) Other hydrocodone (From Vicodin) Adverse Reaction (Severe, Verified 04/10/24 10:41) Other erythromycin base Adverse Reaction (Intermediate, Verified 04/10/24 10:41) vomiting Medications ???Medication ???Instructions ???Recorded ???Confirmed ???Type cetirizine 10 mg tablet (Zyrtec) 10 mg PO DAILY PRN allergy symptom s 02/02/20 04/10/24 History vitamin#30 30 mg iron-10 1 cap PO DAILY 03/07/23 04/10/24 History mg iron-folic acid 1 mg-omg3 capsule labetalol 100 mg tablet 100 mg PO BID #180 tabs 04/10/24 0 04/10/24 Rx Patient : No Have you fallen in the past year?: No PFSH Medical History PCOS (polycystic ovarian syndrome) GBS (group B Streptococcus carrier), +RV culture, currently delivery delivered Asthma Amenorrhea Infertility Hypertension Intertriginous dermatitis associated with moisture Sinusitis Gestational diabetes mellitus Abnormal ultrasound Cleft lip and palate, , affecting care of mother, antepartum Skin cyst Seasonal allergies Surgical History H/O tubal ligation History of History of wisdom tooth extraction, class IV edentulism H/O nasal septoplasty Family History Father Hypertension Mother Diabetes Grandfather Cancer Grandmother TIA (transient ischemic attack) Grandfather Heart disease Myocardial infarction Grandmother Rheumatoid arteritis Fibromyalgia Aunt HELLP (hemolytic anemia/elev liver enzymes/low platelets in ) Unknown Pre-eclampsia Sister Bleeding disorder, Onset Age: 21 essential thrombocythemia (blood cancer) Social History adopted: No household members: spouse housing: apartment number of children: 2 current occupational status: employed 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 Patient does have PMH significant for PCOS and gestational diabetes Patient does have some family history of thyroid issues . She does not regularly check her BPs at home She does not get regularly exercise Her diet is fair. she states that she eats a lot on the fly and therefore are a lot of pre- packaged meals / snacks She does see eye doctor at least annually. she has terrible vision and thus sees them for her contacts She does see dentist regularly as well No nicotine Caffeine intake is a lot drinking close to a pot a day she does drink a good amt of water No ETOH She does not get regular sleep due to her kids (her infant is needing ear tubes and thus does not sleep well at night.) Patient does have a history of gestational diabetes (occurring with both of her pregnancies). She has not required medications post-pardum. Patient at this time is feeling well without any acute concerns or complaints. She ROS Const Constitutional: No body ache, excessive sweating, fatigue, fever(s), frequent falls, headache(s), snoring, weakness, weight change, sleep problems or change in appetite Eyes Eyes: No blurry vision, change in vision, eye pain or Light sensitivity ENT ENT: No abnormal hearing, ear (more content not included)... Normal [facility] [employer] Repairer Office Visit Reporton 12-19-2023 Aircraft Pneudraulics Repairer Office Visit Report [facility] [address], [address] [place] [address] OFFICE VISIT Date of Service: 12/19/23 MR#: [id number] Acct: [id number] Name: NANCY MATOS Rep #: [id number] : 1990 Provider: JONAH Raphael Age/Sex: 33/F [place] [facility] Status: Signed Intake Vital Signs 11/22/23 10:16 12/19/23 14:21 12/19/23 14:24 Height 5 ft 4 in 5 ft 4 in 5 ft 4 in Weight: 234 lb 242 lb BMI 40.1 41.5 BP 110/74 121/72 H Blood Pressure Location Rt brachial Position Sitting Respiration 16 Pulse 88 Pulse Source Monitor Temp 97.2 F L Pulse Oximetry (%) 98 Oxygen Delivery Method room air Intake Visit Reasons: Post coital bleeding Concert Promoter Required: No Is patient in pain?: No Allergies Penicillins Allergy (Severe, Verified 12/19/23 14:22) Rash cefdinir (From Omnicef) Allergy (Verified 12/19/23 14:22) Anaphylaxis diazepam (From Valium) Adverse Reaction (Severe, Verified 12/19/23 14:22) Other hydrocodone (From Vicodin) Adverse Reaction (Severe, Verified 12/19/23 14:22) Other erythromycin base Adverse Reaction (Intermediate, Verified 12/19/23 14:22) vomiting Medications ???Medication ???Instructions ???Recorded ???Confirmed ???Type cetirizine 10 mg tablet (Zyrtec) 10 mg PO DAILY PRN allergy symptoms 02/02/20 12/19/23 History vitamin#30 30 mg iron-10 1 cap PO DAILY 03/07/23 12/19/23 History mg iron-folic acid 1 mg-omg3 capsule labetalol 100 mg tablet 100 mg PO BID 11/22/23 12/19/23 History Is last menstrual period known: No Post menopausal: No Patient : No : Yes Control Method: tubal PFSH Medical History PCOS (polycystic ovarian syndrome) GBS (group B Streptococcus carrier), +RV culture, currently delivery delivered Asthma Amenorrhea Infertility Hypertension Intertriginous dermatitis associated with moisture Sinusitis Gestational diabetes mellitus Abnormal ultrasound Cleft lip and palate, , affecting care of mother, antepartum Skin cyst Seasonal allergies Surgical History H/O tubal ligation History of History of wisdom tooth extraction, class IV edentulism H/O nasal septoplasty Family History Father Hypertension Mother Diabetes Grandfather Cancer Grandmother TIA (transient ischemic attack) Grandfather Heart disease Myocardial infarction Grandmother Rheumatoid arteritis Fibromyalgia Aunt HELLP (hemolytic anemia/elev liver enzymes/low platelets in ) Unknown Pre-eclampsia Sister Bleeding disorder, Onset Age: 21 essential thrombocythemia (blood cancer) Social History adopted: No household members: spouse housing: apartment number of children: 2 current occupational status: employed 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 She reports this as a pinkish tinge when she wipes a couple hours after intercourse and that is it. She does not notice this on her underwear; does not have to wear a pad. Partner does not notice blood either. She report she has not had this happen previously. Denies fever, chills. Denies concerns for STI, STDS. She denies discharge or odor. Denies vaginal itching. Denies pain with intercourse. She did take a test that was negative a couple weeks ago. History 2 Elective abortions Hx Para 2 Spontaneous abortions Hx # Term Pregnancies 2 Ectopic pregnancies Hx # Pregnancies Multiple births # of living children 2 Past Pregnancies Del. Date Name GA/Weeks Outcome Route Bth Weight Infant Gen Labor Lgth Anesthesia Del Locatn Provider FOB 01/17/20 Fahad 37 live - full term 4lbs 3oz Female Guillaume Kelly 07/20/23 Wilbur 38 live - full term 6lbs 15oz Male [facility] Delivery Date: 01/17/20 Last Updated by: Mary Blackburn Diabetes, Pre-eclampsia, Breech ROS Const ROS Unobtainable: All systems reviewed are unremarkable except as noted in H Exam Const (more content not included)... Normal [facility] Progress Noteon 09-30-2023 Hone Operator Authentication Interface Message Text Assessment Patient: Nancy Shawna Chief Complaint: Latch Difficulties Difficulty of mother performing [Z39.1] Plan -nurse as desired -would switch breasts when he falls asleep to stimulate him awake and offer both breast, especially if he is fairly reliant on letdown -if nursing - only pump or terra opposite breast if uncomfortable to regulate supply since if feeding overnight he obviously won't empty both breasts -continue pumping as desired Followup as needed Subjective Since last visit, things have been going well for Dominik. Pretty much the day after they left, she was able to get him to latch. Since then, they have been usually once a day, although yesterday did two. After nursing, He seems satisfied so he does not get a bottle and Nancy doesn't pump. Usually he feeds one breast and then sometimes will take the other a bit later when he wakes up. He usually stays on breast about 20-25 minutes but Nancy notes he often falls asleep at this time. He usually feeds 7 times a day, sometimes 8. The remaining bottles are still 4 ounces. Nancy Is pumping 6-7 other times a day and getting around 32 ounces a day Nancy is very happy with how things are going, she would like to be able to just nurse overnight and pump during the day Objective Hunger cues noted: No - had 80ml about an hour prior Positioning: cross-cradle Audible swallowing? Yes Time at breast ~15 minutes on and off Transfer weights (done with same diaper each measurement): Both breasts Pre-feed weight: 5088 grams Post-feed weight: 5118 grams Amount transferred: 30 grams Feeding observations: latches happily, does pop on and off fairly frequently until letdown occurs, then suckles happily, falls asleep fairly quickly. Nancy notes he is sleepier now than he usually is. Latch is wide and deep. Exam: Gen: alert, oriented, no distress. Conversant, mood and affect appropriate Nipple exam pre-feed: - Right: Fenwick and everted - Left: Fenwick and everted Nipple exam post-feed: - Right: erect - Left: erect Breast exam: - Right: normal shape, tissue extends to sternum, no erythema or edema, no mass - Left: normal shape, tissue extends to sternum, no erythema or edema, no mass I Spent 30 minutes on this patient in direct [id number] care, chart review of prior notes, and documentation. Normal [facility] Progress Noteon 09-16-2023 Hone Operator Authentication Interface Message Text Assessment Patient: Nancy Shawna Chief Complaint: Latch Difficulties Difficulty of mother performing [Z39.1] Hard to say at this point if he would still have transfer difficulties since its hard to even get him back to breast. Goal is to get him back to breast consistently, then we'll do another weighted feed to see how he does He likely had some right torticollis that was more significant at the beginning, making feeds difficult, and now he is just so used to bottles. There are no obvious anatomic abnormalities that are concerning for ability to transfer milk. Plan To get Wilbur back to breast: Trying to feed him before he is starving = babies tend to be more patient when they aren't starving hungry, so if he typically feeds every 2.5hr, catching him just a few minutes before, so he is hungry but not fully awake yet. Also sleepy feeds- so trying to nurse him when he is drowsy can be helpful Finishing all feeds at the breast so he associates satiety with the breast, allowing him to comfort nurse All bottles should be paced, resources provided. A 4 oz bottle should take 20-30min. Continue neck stretches Return in about 2 weeks (around 09/30/2023). Subjective complicated by: gestational diabetes Dominik present today for latch difficulties. He was born at 38 weeks via scheduled repeat c/s. complicated by GDM on metformin and insulin. After delivery, he was mostly but did have intermittent formula supplementation in the hospital. She did not start pumping until after they got home. He saw [place] at 9d old and he transferred 40ml in the office. However she felt like he would often latch and feed and then she would go to put him down and he would fuss and still seem hungry after, like he wasn't able to transfer milk effectively. So for the first month of life she was nursing and pumping/bottle feeding if he didn't seem content. Then around 1 month of age she switched to mostly pumping with maybe 1 nursing session a day. She pumps 7-8 times a day, using the zomee or a wearable tsrete. She uses them interchangeably and volumes are about the same from each. She has a 19mm flange for the wearable pump and a 24flange with a 19 insert for the zomee. She sometimes has nipple discomfort but no cracks or bleeding. She sometimes gets clogged ducts, once every 1-2 weeks. She often gets him to nurse long enough to help clear these. Supply is about 36-40oz/d, and he usually eats around 30oz a day, so the remainder is being frozen. She still tries nursing maybe once a day, but he often thrashes his head back and forth, screams at the breast. It often takes several minutes to latch if he does at all, and then when he latches he pops on and off frequently. She usually still pumps and gives a bottle after nursing. He usually takes a full 3oz bottle. She maybe pumps an ounce less or so after nursing. If she can get him to latch he'll sometimes stay on for 20 minutes but falls asleep quickly. He tends to feed better off the left breast which is higher producing. She usually pumps 4oz from the left and 2 oz from the right. He feeds in cradle position. She finds if she tries to turn his body close to hers, he tends to pull away. She does note when asked that he has a right sided head preference, and even in the hospital at would roll onto his right side. He is feeding 8 times a day, 4 oz bottles. He usually feeds 2.5hr during the day and 4 hours overnight. They are using Dr. Jin's bottles with a T nipple, and he finishes in about 15 min. He is mostly coordinated with his bottles but does sometimes lose suction, and if the nipple clogs he cannot clear it himself with suckling. Jodie is currently on labetalol for chronic high blood pressure and zyrtec for allergies. This is her second child. She has a daughter who is 3.5 now who spent 38 days in the NICU. She pumped intermittently for her but she was mostly formula fed. She had cleft lip/palate as well as multiple other medical concerns so she never went to breast. 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 Wilbur will stay home with her. Objective Hunger cues noted: Yes Positioning: cradle Audible swallowing? Yes Time at breast ~15 minutes left breast Transfer weights (done with same diaper each measurement): Left Breast Pre-feed weight: 4570 grams Post-feed weight: 4590 grams Amount transferred: 20 grams Right Breast could not get to latch consitently Total breastmilk transferred at breast: 20 grams Feeding observations: does fuss a bit at breast initially, moving head around, but does eventually latch within a minute or two. Coordinated suckles noted, falls asleep within a few minutes. Hands on compression increase suckling. Unable to get to latch on the right breast, fussy, latches briefly then pops off and won't relatch. Exam: Gen: aler (more content not included)... Normal [facility] Basophil percentageOrdered B y: Elaina Castanon on 07-19-2023 Hemoglobin (Bld) [Mass/Vol] 10.2 g/dL 12.0-15.0 [facility] WBC (Bld) [#/Vol] 8.5 10*3/uL 4.4-11.[address] [facility] Determination of erythrocyte mean corpuscular volume (MCV)Ordered By: Elaina Castanon on 07-19-2023 MCV (RBC) [Entitic vol] 80.2 fL 81-99 [facility] Erythrocyte distribution wid th ratioOrdered By: Elaina Castanon on 07-19-2023 Erythrocyte distribution width (RBC) [Ratio] 14.0 % 11.6-14.6 [facility] Erythrocyte distribution wid th standard deviationOrdered By: Elaina Castanon on 07-19-2023 Erythrocyte distribution width (RBC) [Entitic vol] 40.7 fL 35.1-43.9 [facility] Hematocrit Auto (Bld) [Volum e fraction]Ordered By: Elaina Castanon on 07-19-2023 Hematocrit (Bld) [Volume fraction] 31.2 % 37-47 [facility] Laboratory - Hematology and Cell countsOrdered By: Elaina Castanon on 07-19-2023 MCH (RBC) [Entitic mass] 26.2 pg 27.0-32.0 [facility] MCHC (RBC) [Mass/Vol] 32.7 g/dL 32-36 [facility] Platelet mean volume (Bld) [Entitic vol] 10.7 fL 6.2-12.0 [facility] Platelets (Bld) [#/Vol] 184 10*3/uL 150-450 [facility] RBC Auto (Bld) [#/Vol]Ordere d By: Elaina Castanon on 07-19-2023 RBC (Bld) [#/Vol] 3.89 10*6/uL 4.2-5.4 [facility] Thin prep Papanicolaou smear with manual screeningOrdered By: Elaina Castanon on 07-19-2023 Thin prep Papanicolaou smear with manual screening 81 mg/dL 74-106 [facility] Comment on above: MANAGEMENT OF PATIEN T CARE PER NURSING PROTOCOL Absolute lymphocyte countOrd ered By: Elaina Castanon on 07-18-2023 Lymphocytes Auto (Unsp spec) [#/Vol] 1.84 10*3/uL 0.83-4.51 [facility] Automated lymphocyte count a s percentage of total leukocytesOrdered By: Elaina Castanon on 07-18-2023 Lymphocytes/100 WBC Auto (Unsp spec) 22.1 % 19-41 [facility] Basophil percentageOrdered B y: Elaina Castanon on 07-18-2023 Basophils/100 WBC (Bld) 0.1 % 0-1 [facility] Eosinophils/100 WBC (Bld) 0.7 % 0-5 [facility] Monocytes/100 WBC (Bld) 7.7 % 0-10 [facility] Neutrophils (Bld) [#/Vol] 5.7 10*3/uL 2.0-7.7 [facility] Neutrophils/100 WBC (Bld) 69.0 % 47-70 [facility] Immature granulocytes/100 WB C Auto (Bld)Ordered By: Elaina Castanon on 07-18-2023 Immature granulocytes/100 WBC (Bld) 0.400 % 0.0-0.9 [facility] Comment on above: IG% - Immature Granu locytes (promyelocytes, myelocytes and metamyelocytes) > 1% indicates that a LEFT SHIFT is Present. Laboratory - Hematology and Cell countsOrdered By: Elaina Castanon on 07-18-2023 Nucleated RBC/100 WBC (Bld) [Ratio] 0 % 0-5 [facility] Serum Treponema species anti body detectionOrdered By: Elaina Castanon on 07-18-2023 Treponema sp Ab Ql (S) Non-Reactive [facility] Laboratory - Chemistry and C hemistry - challengeon 07-12-2023 Glucose Ql (U) Negative [facility] Laboratory - Urinalysison Protein Ql (U) Negative [facility] Laboratory - Chemistry and C hemistry - challengeon 07-04-2023 Glucose Ql (U) Negative [facility] Laboratory - Urinalysison Protein Ql (U) Negative [facility] No Panel InformationOrdered By: Coco Moore on 07-04-2023 Group B Streptococcus Culture Streptococcus agalactiae (B) [facility] Laboratory - Chemistry and C hemistry - challengeon 06-21-2023 Glucose Ql (U) Negative [facility] Laboratory - Urinalysison Protein Ql (U) Negative [facility] Basophil percentageOrdered B y: Lucille Gaytan on 06-18-2023 Basophil percentage 0-5 SEEN /hpf 0-5 [facility] Basophil percentageOrdered B y: Elaina Castanon on 06-18-2023 Hemoglobin (Bld) [Mass/Vol] 13.0 g/dL 12.0-15.0 [facility] WBC (Bld) [#/Vol] 11.5 10*3/uL 4.4-11.0 [facility] Bilirubin Test strip Ql (U)O rdered By: Lucille Gaytan on 06-18-2023 Bilirubin Ql (U) Negative Negative [facility] Culture, urineOrdered By: Zan Gaytan on 06-18-2023 Bacteria identified Cx Nom (U) Culture exhibits no growth. [facility] Determination of erythrocyte mean corpuscular volume (MCV)Ordered By: Elaina Castanon on 06-18-2023 MCV (RBC) [Entitic vol] 78.6 fL 81-99 [facility] Erythrocyte distribution wid th ratioOrdered By: Elaina Castanon on 06-18-2023 Erythrocyte distribution width (RBC) [Ratio] 13.5 % 11.6-14.6 [facility] Erythrocyte distribution wid th standard deviationOrdered By: Elaina Castanon on 06-18-2023 Erythrocyte distribution width (RBC) [Entitic vol] 38.4 fL 35.1-43.9 [facility] fibronectinOrdered By: Lucille Gaytan on 06-18-2023 Fibronectin. (Vag fld) [Mass/Vol] Negative [facility] Hematocrit Auto (Bld) [Volum e fraction]Ordered By: Elaina Castanon on 06-18-2023 Hematocrit (Bld) [Volume fraction] 39.4 % 37-47 [facility] Ketones Test strip Ql (U)Ord ered By: Lucille Gaytan on 06-18-2023 Ketones Ql (U) 50 mg/dl Negative [facility] Laboratory - Chemistry and C hemistry - challengeOrdered By: Elaina Castanon on 06-18-2023 ALT [Catalytic activity/Vol] 20 U/L 13-56 [facility] Laboratory - Hematology and Cell countsOrdered By: Elaina Castanon on 06-18-2023 MCH (RBC) [Entitic mass] 25.9 pg 27.0-32.0 [facility] MCHC (RBC) [Mass/Vol] 33.0 g/dL 32-36 [facility] Platelet mean volume (Bld) [Entitic vol] 10.2 fL 6.2-12.0 [facility] Platelets (Bld) [#/Vol] 234 10*3/uL 150-450 [facility] Mucus LM Ql (Urine sed)Order ed By: Lucille Gaytan on 06-18-2023 Mucus Ql (Urine sed) 0 SEEN /hpf [facility] Nitrite Test strip Ql (U)Ord ered By: Lucille Gaytan on 06-18-2023 Nitrite Ql (U) Negative Negative [facility] No Panel InformationOrdered By: Lucille Gaytan on 06-18-2023 Fibrinogen 510 mg/dl 203-444 [facility] Urine RBC 0 SEEN /hpf 0-5 [facility] No Panel InformationOrdered By: Elaina Castanon on 06-18-2023 Estimated GFR (MDRD) Amer 167 mL/min >60 [facility] Comment on above: GFR Calc Estimated GFR (MDRD) Non-Af Amer 138 mL/min >60 [facility] Comment on above: Non- GFR Calc Protein Test strip Ql (U)Ord ered By: Lucille Gaytan on 06-18-2023 Protein Ql (U) Negative Negative [facility] RBC Auto (Bld) [#/Vol]Ordere d By: Elaina Castanon on 06-18-2023 RBC (Bld) [#/Vol] 5.01 10*6/uL 4.2-5.4 [facility] Serum or plasma creatinine m easurement (mass/volume)Ordered By: Elaina Castanon on 06-18-2023 Creatinine [Mass/Vol] 0.54 mg/dL 0.55-1.02 [facility] Comment on above: The validity of the calculated GFR & GFRAA in patients over 70 years has not been determined. Clinical correlation is essential. Serum or plasma uric acid me asurement (mass/volume)Ordered By: Elaina Castanon on 06-18-2023 Urate [Mass/Vol] 5.6 mg/dL 2.6-6.0 [facility] Comment on above: The drugs N-Acetylcy steine and Metamizole may falsely depress this assay. Squamous epithelial cells de tection in urine sediment by light microscopyOrdered By: Lucille Gaytan on 06-18-2023 Epithelial cells.squamous LM Ql (Urine sed) 5-10 SEEN /hpf 5-10 [facility] Thin prep Papanicolaou smear with manual screeningOrdered By: Elaina Castanon on 06-18-2023 Protein (U) [Mass/Vol] 18.4 mg/dL 0.0-11.8 [facility] Thin prep Papanicolaou smear with manual screening 13 U/L 15-37 [facility] Urine blood detectionOrdered By: Lucille Gaytan on 06-18-2023 RBC Ql (U) Negative Negative [facility] Urine clarityOrdered By: Mihir Gaytan on 06-18-2023 Clarity (U) Sl. Cloudy Clear [facility] Urine color determinationOrd ered By: Lucille Gaytan on 06-18-2023 Color (U) Yellow Yellow [facility] Urine creatinine measurement (mass/volume)Ordered By: Elaina Castanon on 06-18-2023 Creatinine (U) [Mass/Vol] 63.70 mg/dL NO RANGE EST. [facility] Urine glucose detectionOrder ed By: Lucille Gaytan on 06-18-2023 Glucose Ql (U) Normal mg/dl Normal [facility] Urine leukocyte esterase det ection by dipstickOrdered By: Lucille Gaytan on 06-18-2023 Leukocyte esterase Test strip Ql (U) 100 /ul Negative [facility] Urine pHOrdered By: Lucille Oliveira llmikaela on 06-18-2023 pH (U) 7.0 [pH] 5.0 - 8.0 [facility] Urine protein/creatinine mas s ratioOrdered By: Elaina Castanon on 06-18-2023 Protein/Creatinine (U) [Mass ratio] 289 mg/g CRE 0-200 [facility] Urine sediment bacteria coun t by microscopy (number/high power field)Ordered By: Lucille Gaytan on 06-18-2023 Bacteria LM.HPF (Urine sed) [#/Area] 0 /[HPF] None Seen [facility] Urine specific gravity measu rementOrdered By: Lucille Gaytan on 06-18-2023 Specific gravity (U) [Rel density] 1.010 1.002-1.030 [facility] Urine urobilinogen measureme ntOrdered By: Lucille Gaytan on 06-18-2023 Urobilinogen Ql (U) Normal mg/dl Normal [facility] Absolute lymphocyte countOrd ered By: Elaina Castanon on 06-14-2023 Lymphocytes Auto (Unsp spec) [#/Vol] 1.93 10*3/uL 0.83-4.51 [facility] Automated lymphocyte count a s percentage of total leukocytesOrdered By: Elaina Castanon on 06-14-2023 Lymphocytes/100 WBC Auto (Unsp spec) 23.2 % 19-41 [facility] Basophil percentageOrdered B y: Elaina Castanon on 06-14-2023 Basophils/100 WBC (Bld) 0.1 % 0-1 [facility] Bilirubin [Mass/Vol] 0.20 mg/dL 0.20-1.00 [facility] Comment on above: For patients on eltr ombopag therapy, use of Dimension [place] TBIL is not recommended. Chloride [Moles/Vol] 109 mmol/L 98-107 [facility] Eosinophils/100 WBC (Bld) 1.0 % 0-5 [facility] Glucose [Mass/Vol] 78 mg/dL 74-[address] [facility] Hemoglobin (Bld) [Mass/Vol] 12.3 g/dL 12.0-15.0 [facility] Monocytes/100 WBC (Bld) 8.1 % 0-10 [facility] Neutrophils (Bld) [#/Vol] 5.6 10*3/uL 2.0-7.7 [facility] Neutrophils/100 WBC (Bld) 67.1 % 47-70 [facility] Potassium [Moles/Vol] 3.7 mmol/L 3.5-5.1 [facility] Protein [Mass/Vol] 7.0 g/dL 6.4-8.[address] [facility] Sodium [Moles/Vol] 138 mmol/L 136-[address] [facility] WBC (Bld) [#/Vol] 8.3 10*3/uL 4.4-11.[address] [facility] Determination of erythrocyte mean corpuscular volume (MCV)Ordered By: Elaina Castanon on 06-14-2023 MCV (RBC) [Entitic vol] 79.5 fL 81-99 [facility] Erythrocyte distribution wid th ratioOrdered By: Elaina Castanon on 06-14-2023 Erythrocyte distribution width (RBC) [Ratio] 13.7 % 11.6-14.6 [facility] Erythrocyte distribution wid th standard deviationOrdered By: Elaina Castanon on 06-14-2023 Erythrocyte distribution width (RBC) [Entitic vol] 39.3 fL 35.1-43.9 [facility] Hematocrit Auto (Bld) [Volum e fraction]Ordered By: Elaina Castanon on 06-14-2023 Hematocrit (Bld) [Volume fraction] 36.1 % 37-47 [facility] Immature granulocytes/100 WB C Auto (Bld)Ordered By: Elaina Castanon on 06-14-2023 Immature granulocytes/100 WBC (Bld) 0.500 % 0.0-0.9 [facility] Comment on above: IG% - Immature Granu locytes (promyelocytes, myelocytes and metamyelocytes) > 1% indicates that a LEFT SHIFT is Present. Laboratory - Chemistry and C hemistry - challengeOrdered By: Elaina Castanon on 06-14-2023 Albumin/Globulin [Mass ratio] 0.7 {ratio} 0.9-2.4 [facility] ALP [Catalytic activity/Vol] 105 U/L 45-117 [facility] ALT [Catalytic activity/Vol] 22 U/L 13-56 [facility] CO2 [Moles/Vol] 20.0 mmol/L 21.0-32.0 [facility] Globulin (S) [Mass/Vol] 4.1 g/dL 2.2-4.2 [facility] Urea nitrogen/Creatinine [Mass ratio] 14.8 mg/mg 10-20 [facility] Laboratory - Chemistry and C hemistry - challengeon 06-14-2023 Glucose Ql (U) Negative [facility] Laboratory - Hematology and Cell countsOrdered By: Elaina Castanon on 06-14-2023 MCH (RBC) [Entitic mass] 27.1 pg 27.0-32.0 [facility] MCHC (RBC) [Mass/Vol] 34.1 g/dL 32-36 [facility] Nucleated RBC/100 WBC (Bld) [Ratio] 0 % 0-5 [facility] Platelet mean volume (Bld) [Entitic vol] 10.6 fL 6.2-12.0 [facility] Platelets (Bld) [#/Vol] 235 10*3/uL 150-450 [facility] Laboratory - Urinalysison Protein Ql (U) Negative [facility] No Panel InformationOrdered By: Elaina Castanon on 06-14-2023 Estimated GFR (MDRD) Amer 131 mL/min >60 [facility] Comment on above: GFR Calc Estimated GFR (MDRD) Non-Af Amer 108 mL/min >60 [facility] Comment on above: Non- GFR Calc RBC Auto (Bld) [#/Vol]Ordere d By: Elaina Castanon on 06-14-2023 RBC (Bld) [#/Vol] 4.54 10*6/uL 4.2-5.4 [facility] Serum or plasma calcium niraj urement (mass/volume)Ordered By: Elaina Castanon on 06-14-2023 Calcium [Mass/Vol] 9.0 mg/dL 8.5-10.[address] [facility] Serum or plasma creatinine m easurement (mass/volume)Ordered By: Elaina Castanon on 06-14-2023 Creatinine [Mass/Vol] 0.67 mg/dL 0.55-1.02 [facility] Comment on above: The validity of the calculated GFR & GFRAA in patients over 70 years has not been determined. Clinical correlation is essential. Serum or plasma urea nitroge n measurement (mass/volume)Ordered By: Elaina Castanon on 06-14-2023 Urea nitrogen [Mass/Vol] 10 mg/dL 7-18 [facility] Thin prep Papanicolaou smear with manual screeningOrdered By: Elaina Castanon on 06-14-2023 Protein (U) [Mass/Vol] 26.7 mg/dL 0.0-11.8 [facility] Thin prep Papanicolaou smear with manual screening 2.9 g/dL 3.2-5.0 [facility] Thin prep Papanicolaou smear with manual screening 19 U/L 15-37 [facility] Thin prep Papanicolaou smear with manual screening 9 5-15 [facility] Urine creatinine measurement (mass/volume)Ordered By: Elaina Castanon on 06-14-2023 Creatinine (U) [Mass/Vol] 106.00 mg/dL NO RANGE EST. [facility] Urine protein/creatinine mas s ratioOrdered By: Elaina Castanon on 06-14-2023 Protein/Creatinine (U) [Mass ratio] 252 mg/g CRE 0-200 [facility] Laboratory - Chemistry and C hemistry - challengeon 06-07-2023 Glucose Ql (U) Negative [facility] Laboratory - Urinalysison Protein Ql (U) Negative [facility] Laboratory - Chemistry and C hemistry - challengeon 05-31-2023 Glucose Ql (U) Negative [facility] Laboratory - Urinalysison Protein Ql (U) Negative [facility] Basophil percentageOrdered B y: Crissy Freire on 05-25-2023 Basophil percentage 5-10 SEEN /hpf 0-5 [facility] Bilirubin Test strip Ql (U)O rdered By: Crissy Freire on 05-25-2023 Bilirubin Ql (U) Negative Negative [facility] Culture, urineOrdered By: Greg Freire on 05-25-2023 Bacteria identified Cx Nom (U) Positive [facility] Ketones Test strip Ql (U)Ord ered By: Crissy Freire on 05-25-2023 Ketones Ql (U) 15 mg/dl Negative [facility] Mucus LM Ql (Urine sed)Order ed By: Crissy Freire on 05-25-2023 Mucus Ql (Urine sed) 0 SEEN /hpf [facility] Nitrite Test strip Ql (U)Ord ered By: Crissy Freire on 05-25-2023 Nitrite Ql (U) Negative Negative [facility] No Panel InformationOrdered By: Crissy Freire on 05-25-2023 Urine RBC 0 SEEN /hpf 0-5 [facility] Vaginal Amniotic Fluid Detection Negative Negative [facility] Comment on above: Amniotic fluid not p resent indicates No Rupture of FetalMembranes at time of specimen collection. Protein Test strip Ql (U)Ord ered By: Crissy Freire on 05-25-2023 Protein Ql (U) 15 mg/dl Negative [facility] Squamous epithelial cells de tection in urine sediment by light microscopyOrdered By: Crissy Freire on 05-25-2023 Epithelial cells.squamous LM Ql (Urine sed) 0-5 SEEN /hpf 5-10 [facility] Urine blood detectionOrdered By: Crissy Freire on 05-25-2023 RBC Ql (U) Negative Negative [facility] Urine clarityOrdered By: Kinga Freire on 05-25-2023 Clarity (U) Clear Clear [facility] Urine color determinationOrd ered By: Crissy Freire on 05-25-2023 Color (U) Yellow Yellow [facility] Urine glucose detectionOrder ed By: Crissy Freire on 05-25-2023 Glucose Ql (U) Normal mg/dl Normal [facility] Urine leukocyte esterase det ection by dipstickOrdered By: Crissy Freire on 05-25-2023 Leukocyte esterase Test strip Ql (U) 100 /ul Negative [facility] Urine pHOrdered By: Crissy Freire on 05-25-2023 pH (U) 6.0 [pH] 5.0 - 8.0 [facility] Urine sediment bacteria coun t by microscopy (number/high power field)Ordered By: Crissy Freire on 05-25-2023 Bacteria LM.HPF (Urine sed) [#/Area] 0 /[HPF] None Seen [facility] Urine specific gravity measu rementOrdered By: Crissy Freire on 05-25-2023 Specific gravity (U) [Rel density] 1.020 1.002-1.030 [facility] Urine urobilinogen measureme ntOrdered By: Crissy Freire on 05-25-2023 Urobilinogen Ql (U) Normal mg/dl Normal [facility] Laboratory - Chemistry and C hemistry - challengeon 05-17-2023 Glucose Ql (U) Negative [facility] Laboratory - Urinalysison Protein Ql (U) Negative [facility] Absolute lymphocyte countOrd ered By: Queta Kohli on 05-10-2023 Lymphocytes Auto (Unsp spec) [#/Vol] 1.81 10*3/uL 0.83-4.51 [facility] Automated lymphocyte count a s percentage of total leukocytesOrdered By: Queta Kohli on 05-10-2023 Lymphocytes/100 WBC Auto (Unsp spec) 17.9 % 19-41 [facility] Basophil percentageOrdered B y: Queta Kohli on 05-10-2023 Basophils/100 WBC (Bld) 0.2 % 0-1 [facility] Bilirubin [Mass/Vol] 0.30 mg/dL 0.20-1.00 [facility] Comment on above: For patients on eltr ombopag therapy, use of Dimension [place] TBIL is not recommended. Chloride [Moles/Vol] 110 mmol/L 98-107 [facility] Eosinophils/100 WBC (Bld) 0.8 % 0-5 [facility] Glucose [Mass/Vol] 109 mg/dL 74-[address] [facility] Comment on above: Fasting Glucose resu lt from 100 to 125 mg/dL suggests IMPAIRED HOMEOSTASIS per A.D.A. criteria. Hemoglobin (Bld) [Mass/Vol] 12.2 g/dL 12.0-15.0 [facility] Monocytes/100 WBC (Bld) 4.6 % 0-10 [facility] Neutrophils (Bld) [#/Vol] 7.7 10*3/uL 2.0-7.7 [facility] Neutrophils/100 WBC (Bld) 76.1 % 47-70 [facility] Potassium [Moles/Vol] 3.6 mmol/L 3.5-5.1 [facility] Protein [Mass/Vol] 6.8 g/dL 6.4-8.[address] [facility] Sodium [Moles/Vol] 137 mmol/L 136-[address] [facility] WBC (Bld) [#/Vol] 10.1 10*3/uL 4.4-11.0 [facility] Determination of erythrocyte mean corpuscular volume (MCV)Ordered By: Queta Kohli on 05-10-2023 MCV (RBC) [Entitic vol] 80.8 fL 81-99 [facility] Erythrocyte distribution wid th ratioOrdered By: Queta Kohli on 05-10-2023 Erythrocyte distribution width (RBC) [Ratio] 13.1 % 11.6-14.6 [facility] Erythrocyte distribution wid th standard deviationOrdered By: Queta Kohli on 05-10-2023 Erythrocyte distribution width (RBC) [Entitic vol] 38.1 fL 35.1-43.9 [facility] Hematocrit Auto (Bld) [Volum e fraction]Ordered By: Queta Kohli on 05-10-2023 Hematocrit (Bld) [Volume fraction] 36.3 % 37-47 [facility] Immature granulocytes/100 WB C Auto (Bld)Ordered By: Queta Kohli on 05-10-2023 Immature granulocytes/100 WBC (Bld) 0.400 % 0.0-0.9 [facility] Comment on above: IG% - Immature Granu locytes (promyelocytes, myelocytes and metamyelocytes) > 1% indicates that a LEFT SHIFT is Present. Laboratory - Chemistry and C hemistry - challengeOrdered By: Queta Kohli on 05-10-2023 Albumin/Globulin [Mass ratio] 0.7 {ratio} 0.9-2.4 [facility] ALP [Catalytic activity/Vol] 89 U/L 45-117 [facility] ALT [Catalytic activity/Vol] 11 U/L 13-56 [facility] CO2 [Moles/Vol] 20.0 mmol/L 21.0-32.0 [facility] Globulin (S) [Mass/Vol] 4.1 g/dL 2.2-4.2 [facility] Urea nitrogen/Creatinine [Mass ratio] 13.0 mg/mg 10-20 [facility] Laboratory - Hematology and Cell countsOrdered By: Queta Kohli on 05-10-2023 MCH (RBC) [Entitic mass] 27.2 pg 27.0-32.0 [facility] MCHC (RBC) [Mass/Vol] 33.6 g/dL 32-36 [facility] Nucleated RBC/100 WBC (Bld) [Ratio] 0 % 0-5 [facility] Platelet mean volume (Bld) [Entitic vol] 9.7 fL 6.2-12.0 [facility] Platelets (Bld) [#/Vol] 237 10*3/uL 150-450 [facility] No Panel InformationOrdered By: Queta Kohli on 05-10-2023 Estimated GFR (MDRD) Amer 145 mL/min >60 [facility] Comment on above: GFR Calc Estimated GFR (MDRD) Non-Af Amer 120 mL/min >60 [facility] Comment on above: Non- GFR Calc RBC Auto (Bld) [#/Vol]Ordere d By: Queta Kohli on 05-10-2023 RBC (Bld) [#/Vol] 4.49 10*6/uL 4.2-5.4 [facility] Serum or plasma calcium niraj urement (mass/volume)Ordered By: Queta Kohli on 05-10-2023 Calcium [Mass/Vol] 9.1 mg/dL 8.5-10.[address] [facility] Serum or plasma creatinine m easurement (mass/volume)Ordered By: Queta Kohli on 05-10-2023 Creatinine [Mass/Vol] 0.62 mg/dL 0.55-1.02 [facility] Comment on above: The validity of the calculated GFR & GFRAA in patients over 70 years has not been determined. Clinical correlation is essential. Serum or plasma urea nitroge n measurement (mass/volume)Ordered By: Queta Kohli on 05-10-2023 Urea nitrogen [Mass/Vol] 8 mg/dL 7-18 [facility] Thin prep Papanicolaou smear with manual screeningOrdered By: Queta Kohli on 05-10-2023 Protein (U) [Mass/Vol] 29.4 mg/dL 0.0-11.8 [facility] Thin prep Papanicolaou smear with manual screening 2.7 g/dL 3.2-5.0 [facility] Thin prep Papanicolaou smear with manual screening 10 U/L 15-37 [facility] Thin prep Papanicolaou smear with manual screening 7 5-15 [facility] Urine creatinine measurement (mass/volume)Ordered By: Queta Kohli on 05-10-2023 Creatinine (U) [Mass/Vol] 122.00 mg/dL NO RANGE EST. [facility] Urine protein/creatinine mas s ratioOrdered By: Queta Kohli on 05-10-2023 Protein/Creatinine (U) [Mass ratio] 241 mg/g CRE 0-200 [facility] Absolute lymphocyte countOrd ered By: Elaina Castanon on 05-03-2023 Lymphocytes Auto (Unsp spec) [#/Vol] 1.60 10*3/uL 0.83-4.51 [facility] Automated lymphocyte count a s percentage of total leukocytesOrdered By: Elaina Castanon on 05-03-2023 Lymphocytes/100 WBC Auto (Unsp spec) 16.2 % 19-41 [facility] Basophil percentageOrdered B y: Elaina Castanon on 05-03-2023 Basophils/100 WBC (Bld) 0.2 % 0-1 [facility] Bilirubin [Mass/Vol] 0.20 mg/dL 0.20-1.00 [facility] Comment on above: For patients on eltr ombopag therapy, use of Dimension [place] TBIL is not recommended. Chloride [Moles/Vol] 107 mmol/L 98-107 [facility] Eosinophils/100 WBC (Bld) 1.5 % 0-5 [facility] Glucose [Mass/Vol] 128 mg/dL 74-[address] [facility] Comment on above: Fasting Glucose resu lt greater than or equal to 126 mg/dL suggests DIABETES MELLITUS per A.D.A. criteria. Hemoglobin (Bld) [Mass/Vol] 12.2 g/dL 12.0-15.0 [facility] Monocytes/100 WBC (Bld) 6.6 % 0-10 [facility] Neutrophils (Bld) [#/Vol] 7.4 10*3/uL 2.0-7.7 [facility] Neutrophils/100 WBC (Bld) 75.2 % 47-70 [facility] Potassium [Moles/Vol] 3.7 mmol/L 3.5-5.1 [facility] Protein [Mass/Vol] 7.3 g/dL 6.4-8.[address] [facility] Sodium [Moles/Vol] 138 mmol/L 136-[address] [facility] WBC (Bld) [#/Vol] 9.9 10*3/uL 4.4-11.[address] [facility] Determination of erythrocyte mean corpuscular volume (MCV)Ordered By: Elaina Castanon on 05-03-2023 MCV (RBC) [Entitic vol] 81.0 fL 81-99 [facility] Erythrocyte distribution wid th ratioOrdered By: Elaina Castanon on 05-03-2023 Erythrocyte distribution width (RBC) [Ratio] 13.0 % 11.6-14.6 [facility] Erythrocyte distribution wid th standard deviationOrdered By: Elaina Castanon on 05-03-2023 Erythrocyte distribution width (RBC) [Entitic vol] 37.5 fL 35.1-43.9 [facility] HIV 1 and HIV-2 antibody ass ay with HIV-1 p24 antigen detectionOrdered By: Elaina Castanon on 05-03-2023 HIV 1+2 Ab+HIV1 p24 Ag IA Ql Non-Reactive Nonreactive [facility] Hematocrit Auto (Bld) [Volum e fraction]Ordered By: Elaina Castanon on 05-03-2023 Hematocrit (Bld) [Volume fraction] 36.6 % 37-47 [facility] Immature granulocytes/100 WB C Auto (Bld)Ordered By: Elaina Castanon on 05-03-2023 Immature granulocytes/100 WBC (Bld) 0.300 % 0.0-0.9 [facility] Comment on above: IG% - Immature Granu locytes (promyelocytes, myelocytes and metamyelocytes) > 1% indicates that a LEFT SHIFT is Present. Laboratory - Chemistry and C hemistry - challengeOrdered By: Elaina Castanon on 05-03-2023 Albumin/Globulin [Mass ratio] 0.7 {ratio} 0.9-2.4 [facility] ALP [Catalytic activity/Vol] 101 U/L 45-117 [facility] ALT [Catalytic activity/Vol] 14 U/L 13-56 [facility] CO2 [Moles/Vol] 21.0 mmol/L 21.0-32.0 [facility] Globulin (S) [Mass/Vol] 4.4 g/dL 2.2-4.2 [facility] Urea nitrogen/Creatinine [Mass ratio] 11.2 mg/mg 10-20 [facility] Laboratory - Chemistry and C hemistry - challengeon 05-03-2023 Glucose Ql (U) Negative [facility] Laboratory - Hematology and Cell countsOrdered By: Elaina Castanon on 05-03-2023 MCH (RBC) [Entitic mass] 27.0 pg 27.0-32.0 [facility] MCHC (RBC) [Mass/Vol] 33.3 g/dL 32-36 [facility] Nucleated RBC/100 WBC (Bld) [Ratio] 0 % 0-5 [facility] Platelet mean volume (Bld) [Entitic vol] 9.9 fL 6.2-12.0 [facility] Platelets (Bld) [#/Vol] 247 10*3/uL 150-450 [facility] Laboratory - Urinalysison Protein Ql (U) Negative [facility] No Panel InformationOrdered By: Elaina Castanon on 05-03-2023 Estimated GFR (MDRD) Amer 123 mL/min >60 [facility] Comment on above: GFR Calc Estimated GFR (MDRD) Non-Af Amer 101 mL/min >60 [facility] Comment on above: Non- GFR Calc RBC Auto (Bld) [#/Vol]Ordere d By: Elaina Castanon on 05-03-2023 RBC (Bld) [#/Vol] 4.52 10*6/uL 4.2-5.4 [facility] Serum Treponema species anti body detectionOrdered By: Elaina Castanon on 05-03-2023 Treponema sp Ab Ql (S) Non-Reactive [facility] Serum or plasma calcium niraj urement (mass/volume)Ordered By: Elaina Castanon on 05-03-2023 Calcium [Mass/Vol] 9.4 mg/dL 8.5-10.[address] [facility] Serum or plasma creatinine m easurement (mass/volume)Ordered By: Elaina Castanon on 05-03-2023 Creatinine [Mass/Vol] 0.71 mg/dL 0.55-1.02 [facility] Comment on above: The validity of the calculated GFR & GFRAA in patients over 70 years has not been determined. Clinical correlation is essential. Serum or plasma urea nitroge n measurement (mass/volume)Ordered By: Elaina Castanon on 05-03-2023 Urea nitrogen [Mass/Vol] 8 mg/dL 7-18 [facility] Thin prep Papanicolaou smear with manual screeningOrdered By: Queta Kohli on 05-03-2023 Protein (U) [Mass/Vol] 12.5 mg/dL 0.0-11.8 [facility] Thin prep Papanicolaou smear with manual screeningOrdered By: Elaina Castanon on 05-03-2023 Thin prep Papanicolaou smear with manual screening 2.9 g/dL 3.2-5.0 [facility] Thin prep Papanicolaou smear with manual screening 13 U/L 15-37 [facility] Thin prep Papanicolaou smear with manual screening 10 5-15 [facility] Urine creatinine measurement (mass/volume)Ordered By: Queta Kohli on 05-03-2023 Creatinine (U) [Mass/Vol] 57.10 mg/dL NO RANGE EST. [facility] Urine protein/creatinine mas s ratioOrdered By: Queta Kohli on 05-03-2023 Protein/Creatinine (U) [Mass ratio] 219 mg/g CRE 0-200 [facility] Laboratory - Chemistry and C hemistry - challengeon 04-05-2023 Glucose Ql (U) Negative [facility] Laboratory - Urinalysison Protein Ql (U) Negative [facility] Laboratory - Chemistry and C hemistry - challengeon 03-06-2023 Glucose Ql (U) Negative [facility] Laboratory - Urinalysison Protein Ql (U) Negative [facility] Laboratory - Chemistry and C hemistry - challengeon 02-08-2023 Glucose Ql (U) Negative [facility] Laboratory - Urinalysison Protein Ql (U) Negative [facility] Absolute lymphocyte countOrd ered By: Queta Kohli on 01-11-2023 Lymphocytes Auto (Unsp spec) [#/Vol] 2.14 10*3/uL 0.83-4.51 [facility] Basophil percentageOrdered B y: Queta Kohli on 01-11-2023 Basophils/100 WBC (Bld) 0.2 % 0-1 [facility] Bilirubin [Mass/Vol] 0.30 mg/dL 0.20-1.00 [facility] Comment on above: For patients on eltr ombopag therapy, use of Dimension [place] TBIL is not recommended. Chloride [Moles/Vol] 108 mmol/L 98-107 [facility] Eosinophils/100 WBC (Bld) 0.5 % 0-5 [facility] Glucose [Mass/Vol] 120 mg/dL 74-[address] [facility] Comment on above: Fasting Glucose resu lt from 100 to 125 mg/dL suggests IMPAIRED HOMEOSTASIS per A.D.A. criteria. Neutrophils (Bld) [#/Vol] 7.9 10*3/uL 2.0-7.7 [facility] Neutrophils/100 WBC (Bld) 73.2 % 47-70 [facility] Potassium [Moles/Vol] 3.4 mmol/L 3.5-5.1 [facility] Protein [Mass/Vol] 7.3 g/dL 6.4-8.[address] [facility] Sodium [Moles/Vol] 138 mmol/L 136-[address] [facility] WBC (Bld) [#/Vol] 10.8 10*3/uL 4.4-11.0 [facility] Blood erythrocytes count (nu mber/volume)Ordered By: Queta Kohli on 01-11-2023 RBC (Bld) [#/Vol] 4.89 10*6/uL 4.2-5.4 [facility] Blood hemoglobin measurement (mass/volume)Ordered By: Queta Kohli on 01-11-2023 Hemoglobin (Bld) [Mass/Vol] 13.7 g/dL 12.0-15.0 [facility] Blood lymphocytes/100 leukoc ytesOrdered By: Queta Kohli on 01-11-2023 Lymphocytes/100 WBC (Bld) 19.8 % 19-41 [facility] Blood monocytes/100 leukocyt esOrdered By: Queta Kohli on 01-11-2023 Monocytes/100 WBC (Bld) 5.9 % 0-10 [facility] Blood platelet mean volumeOr dered By: Queta Kohli on 01-11-2023 Platelet mean volume (Bld) [Entitic vol] 9.6 fL 6.2-12.0 [facility] Determination of erythrocyte mean corpuscular volume (MCV)Ordered By: Queta Kohli on 01-11-2023 MCV (RBC) [Entitic vol] 82.6 fL 81-99 [facility] HIV 1 and HIV-2 antibody ass ay with HIV-1 p24 antigen detectionOrdered By: Queta Kohli on 01-11-2023 HIV 1+2 Ab+HIV1 p24 Ag IA Ql Non-Reactive Nonreactive [facility] Hematocrit Auto (Bld) [Volum e fraction]Ordered By: Queta Kohli on 01-11-2023 Hematocrit (Bld) [Volume fraction] 40.4 % 37-47 [facility] Laboratory - Chemistry and C hemistry - challengeon 01-11-2023 Glucose Ql (U) Negative [facility] Laboratory - Chemistry and C hemistry - challengeOrdered By: Queta Kohli on 01-11-2023 ALP [Catalytic activity/Vol] 83 U/L 45-117 [facility] ALT [Catalytic activity/Vol] 18 U/L 13-56 [facility] CO2 [Moles/Vol] 22.0 mmol/L 21.0-32.0 [facility] Globulin (S) [Mass/Vol] 4.0 g/dL 2.2-4.2 [facility] Urea nitrogen/Creatinine [Mass ratio] 13.6 mg/mg 10-20 [facility] Laboratory - Hematology and Cell countsOrdered By: Queta Kohli on 01-11-2023 Erythrocyte distribution width (RBC) [Entitic vol] 37.6 fL 35.1-43.9 [facility] Erythrocyte distribution width (RBC) [Ratio] 12.5 % 11.6-14.6 [facility] Immature granulocytes/100 WBC (Bld) 0.400 % 0.0-0.9 [facility] Comment on above: IG% - Immature Granu locytes (promyelocytes, myelocytes and metamyelocytes) > 1% indicates that a LEFT SHIFT is Present. MCH (RBC) [Entitic mass] 28.0 pg 27.0-32.0 [facility] Nucleated RBC/100 WBC (Bld) [Ratio] 0 % 0-5 [facility] Laboratory - Urinalysison Protein Ql (U) Negative [facility] MCHC Auto (RBC) [Mass/Vol]Or dered By: Queta Kohli on 01-11-2023 MCHC (RBC) [Mass/Vol] 33.9 g/dL 32-36 [facility] No Panel InformationOrdered By: Queta Kohli on 01-11-2023 Miscellaneous Test Comment MAILED SPECIMEN [facility] Estimated GFR (MDRD) Amer 134 mL/min >60 [facility] Comment on above: GFR Calc Estimated GFR (MDRD) Non-Af Amer 110 mL/min >60 [facility] Comment on above: Non- GFR Calc Hepatitis B Surface Antigen Non-Reactive Nonreactive [facility] Hepatitis C Antibody Non-Reactive Nonreactive [facility] Comment on above: Non Reactive: < 0.8 Equivocal: >/= 0.8 to < 1.0 Reactive: >/= 1.0The CDC recommends that a reactive/equivocal HCV antibody result be followed up by the HCV Nucleic Acid Amplificationtest (722180) Rubella IgG Antibody Reactive Nonreactive [facility] Comment on above: Antibody Results Int erpretation of Immune Status Non Reactive Presumed Non-Immune Equivocal Equivocal Reactive Presumed Immune Platelets bldOrdered By: Loulou Kohli on 01-11-2023 Platelets (Bld) [#/Vol] 235 10*3/uL 150-450 [facility] Serum Treponema species anti body detectionOrdered By: Queta Kohli on 01-11-2023 Treponema sp Ab Ql (S) Non-Reactive [facility] Serum or plasma albumin niraj urement (mass/volume)Ordered By: Queta Kohli on 01-11-2023 Albumin [Mass/Vol] 3.3 g/dL 3.2-5.[address] [facility] Serum or plasma albumin/glob ulin mass ratioOrdered By: Queta Kohli on 01-11-2023 Albumin/Globulin [Mass ratio] 0.8 {ratio} 0.9-2.4 [facility] Serum or plasma calcium niraj urement (mass/volume)Ordered By: Queta Kohli on 01-11-2023 Calcium [Mass/Vol] 8.7 mg/dL 8.5-10.[address] [facility] Serum or plasma creatinine m easurement (mass/volume)Ordered By: Queta Kohli on 01-11-2023 Creatinine [Mass/Vol] 0.66 mg/dL 0.55-1.02 [facility] Comment on above: The validity of the calculated GFR & GFRAA in patients over 70 years has not been determined. Clinical correlation is essential. Serum or plasma urea nitroge n measurement (mass/volume)Ordered By: Queta Kohli on 01-11-2023 Urea nitrogen [Mass/Vol] 9 mg/dL 7-18 [facility] Thin prep Papanicolaou smear with manual screeningOrdered By: Queta Kohli on 01-11-2023 Thin prep Papanicolaou smear with manual screening 13 U/L 15-37 [facility] Thin prep Papanicolaou smear with manual screening 8 5-15 [facility] Whole blood hemoglobin A1c/t otal hemoglobin ratio (mass fraction)Ordered By: Queta Kohli on 01-11-2023 HbA1c (Bld) [Mass fraction] 4.9 % 3.8-5.6 [facility] Comment on above: Normal < 5.7 % Predi abetic 5.7 - 6.4 % Diabetic >or= 6.5 % Please note range changes. Chlamydia trachomatis rRNA d etection by probe and target amplification methodOrdered By: Queta Kohli on 12-14-2022 C. trachomatis rRNA SHERICE+probe Ql (Unsp spec) Negative Negative [facility] Culture, urineOrdered By: Lucy Kohli on 12-14-2022 Bacteria identified Cx Nom (U) Culture exhibits no growth. [facility] Culture, urineOrdered By: Phuc Castanon on 12-14-2022 Bacteria identified Cx Nom (U) Culture exhibits no growth. [facility] Laboratory - Microbiology an d Antimicrobial susceptibilityOrdered By: Queta Kohli on 12-14-2022 N. gonorrhoeae DNA SHERICE+probe Ql (Unsp spec) Negative Negative [facility] Comment on above: Performed at: =[facility] [address] [id number] Director: Maine De Dios MD, Phone: [phone] Laboratory - Chemistry and C hemistry - challengeon 12-13-2022 Bilirubin Ql (U) Negative [facility] Glucose Ql (U) Negative [facility] Ketones Ql (U) Negative [facility] pH (U) 5.0 [pH] [facility] Specific gravity (U) [Rel density] 1.010 [facility] Urobilinogen (U) [Mass/Vol] 0.5485128 mg/dL [facility] Laboratory - Hematology and Cell countson 12-13-2022 Hemoglobin Ql (U) Negative [facility] Laboratory - Specimen inform ationon 12-13-2022 Clarity (U) Clear [facility] Color (U) Yellow [facility] Laboratory - Urinalysison Nitrite Ql (U) Negative [facility] Protein Ql (U) Negative [facility] No Panel Informationon 12-13 Urine Leukocytes Negatve [facility] Serum or plasma choriogonado tropin detectionOrdered By: Queta Kohli on 11-22-2022 HCG ( test) Ql 264 mIU/mL <4 [facility] Comment on above: hCG levels with Gest ational AgeGestational Age hCG mIU/mL (IU/L)0.2 - 1 week 5 - 501-2 weeks 50 - 5002-3 weeks 100 - 99583-8 weeks 500 - 338802-4 weeks 1000 - 260617-6 weeks 95736 - 100,0006-8 weeks 27566 - 200,0002-3 months 37883 - 100,000 Serum or plasma choriogonado tropin detectionOrdered By: Queta Kohli on 11-20-2022 HCG ( test) Ql 151 mIU/mL <4 [facility] Comment on above: hCG levels with Gest ational AgeGestational Age hCG mIU/mL (IU/L)0.2 - 1 week 5 - 501-2 weeks 50 - 5002-3 weeks 100 - 62698-0 weeks 500 - 725933-8 weeks 1000 - 291023-7 weeks 45723 - 100,0006-8 weeks 94827 - 200,0002-3 months 24477 - 100,000 HCG ( test) Ql (U)o n 11-16-2021 Interpretation and review of laboratory results Normal [facility] , Urineon 2 HCG ( test) Ql (U) Negative Negative [facility] UrinalysisOrdered By: Demi Ojeda on 11-16-2021 Bacteria Auto Ql (U) None Seen None Se en /hpf [facility] Bilirubin Ql (U) Negative Negative [facility] th Clarity Refractometry automated (U) Clear Clear [facility] Color (U) Yellow Colorless, Yellow [facility] Epithelial cells.squamous Auto (Urine sed) [#/Area] 2 [facility] Glucose Auto test strip (U) [Mass/Vol] Negative Negative mg/dL [facility] Hemoglobin Auto test strip Ql (U) Negative Negative [facility] Interpretation and review of laboratory results Abnormal [facility] Ketones (U) [Mass/Vol] Negative Negat marcel mg/dL [facility] Leukocyte esterase Auto test strip Ql (U) Trace Abnormal Negative [facility] Nitrite Auto test strip Ql (U) Negative Negative [facility] pH (U) 6.0 [pH] 5 - 7 [facility] Protein (U) [Mass/Vol] Negative Negat marcel mg/dL [facility] RBC Auto (Urine sed) [#/Area] [facility] Specific gravity (U) [Rel density] 1.015 1.005 - 1.025 [facility] Urobilinogen (U) [Mass/Vol] mg/dL NINF - 2.0 mg/dL [facility] WBC Auto (Urine sed) [#/Area] 1 [facility] Microscopic examination is performed on all urinalysis samples and only positive findings are reported. The test for blood on the chemical analytic portion of urinalysis may also be positive due to hemoglobinuria and myoglobinuria and if red blood cells are present they are quantified by microscopic examination. [facility] Comprehensive metabolic 2000 panelon 06-28-2021 Albumin [Mass/Vol] 4.2 g/dL 3.2 - 5.2 g/dL [facility] ALP [Catalytic activity/Vol] 86 U/L 40 - 140 U/L [facility] ALT [Catalytic activity/Vol] 29 U/L 14 - 65 U/L [facility] Anion gap [Moles/Vol] 10 mmol/L 10 - 2 0 mmol/L [facility] AST [Catalytic activity/Vol] 19 U/L 0 - 45 U/L [facility] Bilirubin [Mass/Vol] 0.5 mg/dL 0.0 - 1 .3 mg/dL [facility] Calcium [Mass/Vol] 9.6 mg/dL 8.4 - 10. 2 mg/dL [facility] Chloride [Moles/Vol] 108 mmol/L 98 - 10 8 mmol/L [facility] Creatinine [Mass/Vol] 0.79 mg/dL 0.40 - 1.10 [facility] GFR/1.73 sq M.predicted CKD-EPI (S/P/Bld) [Vol rate/Area] 101 >=60 mL/min/1.73 m2 [facility] Glucose [Mass/Vol] 93 mg/dL 65 - 99 mg/dL [facility] HCO3 [Moles/Vol] 22 mmol/L 21 - 32 mmol/L [facility] Potassium [Moles/Vol] 4.1 mmol/L 3.5 - 5.1 mmol/L [facility] Protein [Mass/Vol] 7.7 g/dL 6.0 - 8.0 g/dL [facility] Sodium [Moles/Vol] 136 mmol/L 135 - 145 mmol/L [facility] Urea nitrogen [Mass/Vol] 12 mg/dL 8 - 25 mg/d L [facility] Urea nitrogen/Creatinine [Mass ratio] 15.2 mg/mg [facility] The eGFR should be used for monitoring renal function only and not for medication dosing. [facility] HCG Qnon 06-28-2021 Beta HCG ( test) Ql (U) Males and non females: <5 mIU/mL Females during : 3-4 weeks 9-130 mIU/mL 4-5 weeks 75-2600 mIU/mL 5-6 weeks 850-20,800 mIU/mL 6-7 weeks 4000-100,200 mIU/mL 7-12 weeks 11,500-289,000 mIU/mL 12-16 weeks 18,300-137,000 mIU/mL 16-29 weeks 1,400-53,000 mIU/mL 29-41 weeks 940-60,000 mIU/mL [facility] HbA1c (Bld) [Mass fraction]o n 06-28-2021 Average glucose Estimated from glycated hemoglobin (Bld) [Mass/Vol] 103 mg/dL 68 - 114 mg/dL [facility] Interpretation and review of laboratory results Normal [facility] Normal: 4.0% - 5.6% Increased risk for diabetes: 5.7% - 6.4% Diabetes: >= 6.5% Pediatrics: No established reference range Estimated average glucose: 68-114 mg/dL [facility] Hemoglobin A1con 06-28-2021 HbA1c (Bld) [Mass fraction] 5.2 % 4.0 - 5.6 % [facility] Insulin Qnon 06-28-2021 Interpretation and review of laboratory results Normal [facility] Insulin, Totalon 06-28-2021 Insulin Qn 17.2 u[IU]/mL [facility] No Panel Informationon 06-28 Interpretation and review of laboratory results Normal [facility] T4, Freeon 06-28-2021 Free T4 [Mass/Vol] 1.1 ng/dL 0.7 - 1.7 ng/dL [facility] TSH DL <= 0.005 mIU/L Qnon 0 06-28-2021 TSH Qn 1.62 m[IU]/L [facility] hCG, Blood, Quantitativeon 0 06-28-2021 HCG Qn m[IU]/mL [facility] Glucose,Bedsideon 01-19-2020 Glucose [Mass/Vol] 92 mg/dL Normal 70-100 [facility] Comment on above: Result Comment: Test performed by glucose meter. Results may be 10%-15% lower than serum/plasma values. (CLIA ID [id number]) Performed By: #### B GLU #### [facility] [address] [place] [address] Glucose [Mass/Vol] 78 mg/dL Normal 70-100 [facility] Comment on above: Result Comment: Test performed by glucose meter. Results may be 10%-15% lower than serum/plasma values. (CLIA ID [id number]) Performed By: #### B GLU #### [facility] [address] [place] [address] Group B Strep Screen PCRon 1 03-20-2019 Group B Strep Screen PCR Group B Strep S creen PCR --> Status: F POSITIVE Expected Result: Negative CDC guidelines for prevention of Group B Strep disease recommends collection of both vaginal and rectal specimens for optimal recovery of GBS. Methodology - Real Time PCR (Modanisa) Expected Result: Negative CDC guidelines for prevention of Group B Strep disease recommends collection of both vaginal and rectal specimens for optimal recovery of GBS. Methodology - Real Time PCR (Modanisa) 1 Organism Streptococcus agalactiae (Group B) Isolated: Susceptibility testing not routinely performed. Group B streptococcus is universally susceptible to beta-lactam antibiotics and vancomycin. If patient is beta-lactam allergic, please call [facility] Microbiology lab ([phone]) within 2 days to request susceptibility testing. If isolated from urine, Group B strep may indicate colonization or infection. 1 Organism Antibiotic Result Intrp Ampicillin(ABDI) <= 0.25 S Inducible Clindamycin Resistant(ABDI)Neg Neg Ceftriaxone(ABDI) <= 0.12 S Clindamycin(ABDI) >= 1 R Vancomycin(ABDI) = 0.5 S Levofloxacin(ABDI) = 0.5 S Linezolid(ABDI) <= 2 S Tetracycline(ABID) >= 16 R Erythromycin(ABDI) >= 8 R Penicillin-G(ABDI) = 0.12 S Normal [facility] Comment on above: Order Comment: Speci men Source Comment:Vaginal-Perirectal Performed By: #### B GLU #### [address] [address] Group B Strep, PCRon Group B Strep Screen PCR POSITIVE Expected Result: Negative CDC guidelines for prevention of Group B Strep disease recommends collection of both vaginal and rectal specimens for optimal recovery of GBS. Methodology - Real Time PCR (Modanisa) Abnormal [place] Group B Strep Screen PCR Isolated: Susceptibility testing not routinely performed. Group B streptococcus is universally susceptible to beta-lactam antibiotics and vancomycin. If patient is beta-lactam allergic, please call [facility] Microbiology lab ([phone]) within 2 days to request susceptibility testing. If isolated from urine, Group B strep may indicate colonization or infection. [place], [place] Group B Strep Screen PCR Group B streptococcus Abnormal [place] Interpretation and review of laboratory results Abnormal [place] Test Performed by [address] [address] Specimen Source Comment:Vaginal-Tania rectal [place], [place] POCT Glucoseon 01-19-2020 Glucose [Mass/Vol] 92 mg/dL 70 - 100 mg/dL [place] Comment on above: Test performed by ucose meter. Results may be 10%-15% lower than serum/plasma values. (CLIA ID [id number]) Test Performed by [id number] [place] [address] Glucose [Mass/Vol] 78 mg/dL 70 - 100 mg/dL [place] Comment on above: Test performed by gl ucose meter. Results may be 10%-15% lower than serum/plasma values. (CLIA ID [id number]) [facility], [facility] [place], [place] [id number] [place] [address] Glucose,Bedsideon 01-18-2020 Glucose [Mass/Vol] 108 mg/dL High 70-100 [facility] Comment on above: Result Comment: Test performed by glucose meter. Results may be 10%-15% lower than serum/plasma values. (CLIA ID [id number]) Performed By: #### B GLU #### [facility] [employer] [place] [address] [address] [place], [place] Glucose [Mass/Vol] 108 mg/dL High 70-100 [facility] Comment on above: Result Comment: Test performed by glucose meter. Results may be 10%-15% lower than serum/plasma values. (CLIA ID [id number]) Performed By: #### H MAKEDA CMP3 #### [employer] [place] [address] [address] [place], [place] Glucose [Mass/Vol] 89 mg/dL Normal 70-100 [facility] Comment on above: Result Comment: Test performed by glucose meter. Results may be 10%-15% lower than serum/plasma values. (CLIA ID [id number]) Performed By: #### B GLU #### [facility] [place] [address] [address], [place] Hemoglobinon 01-18-2020 Hemoglobin (Bld) [Mass/Vol] 10.4 g/dL Low 11.7-16.0 [place] Comment on above: repeated Result Comment: repe ated Performed By: #### H EMDF, CMP3 #### [facility] [place] [address] [place] Interpretation and review of laboratory results Abnormal [place] Test [facility] by [facility], [facility] [place] [address] [place] POCT Glucoseon 01-18-2020 Glucose [Mass/Vol] 108 mg/dL High 70 - 100 mg/dL [place] Comment on above: Test performed by gl ucose meter. Results may be 10%-15% lower than serum/plasma values. (CLIA ID [id number]) Interpretation and review of laboratory results Abnormal [place] Test Performed by [facility], [facility] [place] [address] [place] Glucose [Mass/Vol] 108 mg/dL High 70 - 100 mg/dL [place] Comment on above: Test performed by gl ucose meter. Results may be 10%-15% lower than serum/plasma values. (CLIA ID [id number]) Interpretation and review of laboratory results Abnormal [place] Test Performed by [facility], [facility] [place] [address] [place] Glucose [Mass/Vol] 89 mg/dL 70 - 100 mg/dL [place] Comment on above: Test performed by gl ucose meter. Results may be 10%-15% lower than serum/plasma values. (CLIA ID [id number]) Test Performed by [facility], [facility] [place] [address] [place] CBCon 01-17-2020 Erythrocyte distribution width (RBC) [Ratio] 14.0 % 11.5 - 14.5 % [place] Hematocrit (Bld) [Volume fraction] 39.1 % 35 - 47 % [place] Hemoglobin (Bld) [Mass/Vol] 13.0 g/dL 11.7 - 16 g/dL [place] Interpretation and review of laboratory results Abnormal [place] MCH (RBC) [Entitic mass] 27.0 pg 26 - 34 pg [place] MCHC (RBC) [Mass/Vol] 33.2 % 32 - 36 % [place] MCV (RBC) [Entitic vol] 81.2 fL 79 - 98 fL [place], [place] Platelet mean volume (Bld) [Entitic vol] 9.7 fL 7.4 - 10.4 fL [place] Platelets (Bld) [#/Vol] 291 10*3/uL 140 - 440 10*3/uL [place] RBC (Bld) [#/Vol] 4.81 10*6/uL 3.8 - 5.2 10*6/uL [place] WBC (Bld) [#/Vol] 14.4 10*3/uL High 3.6 - 10.7 10*3/uL [place] Test Performed by [facility], [facility] [place] Comp Metabolic Panelon 01-16 ALP [Catalytic activity/Vol] 181 U/L High 38-126 [facility] Comment on above: Performed By: #### B GLU #### [place] [address] [place] ALT [Catalytic activity/Vol] 10 U/L Normal 0-34 [facility] Comment on above: Result Comment: The ALT test is performed by an updated assay method. Please note that the reference intervals have been changed and are now sex specific. Performed By: #### B GLU #### [place] [address] [address], [place] AST [Catalytic activity/Vol] 21 U/L Normal 15-46 [facility] Comment on above: Performed By: #### B GLU #### [place] [address] [address] [place], [place] Calcium [Mass/Vol] 8.9 mg/dL Normal 8.4-10.4 [facility] Comment on above: Performed By: #### B GLU #### [place] [address] [address] [place], [place] Glucose [Mass/Vol] 107 mg/dL High 70-100 [facility] Comment on above: Performed By: #### B GLU #### [place] [address] [address] [place], [place] Protein [Mass/Vol] 6.6 g/dL Normal 6.3-8.2 [facility] Comment on above: Performed By: #### B GLU #### [place] [address] [address] [place], [place] Urea nitrogen [Mass/Vol] 17 mg/dL Normal 7-20 [facility] Comment on above: Performed By: #### B GLU #### [facility] [address] [place] [address] Anion gap [Moles/Vol] 10 Normal [facility] Comment on above: Performed By: #### B GLU #### [facility] [address] [place] [address] Bilirubin [Mass/Vol] 0.4 mg/dL Normal 0.2-1.3 [facility] Comment on above: Performed By: #### B GLU #### [facility] [address] [place] [address] CO2 [Moles/Vol] 17 mmol/L Low 22-30 [facility] Comment on above: Performed By: #### B GLU #### [facility] [address] [place] [address] Creatinine [Mass/Vol] 0.68 mg/dL Normal 0.52-1.25 [facility] Comment on above: Performed By: #### B GLU #### [facility] [address] [place] [address] GFR/1.73 sq M predicted among blacks MDRD (S/P/Bld) [Vol rate/Area] mL/min/{1.73_m2} Normal >60 [facility] Comment on above: Performed By: #### B GLU #### [facility] [address] [place] [address] GFR/1.73 sq M predicted among non-blacks MDRD (S/P/Bld) [Vol rate/Area] mL/min/{1.73_m2} Normal >60 [facility] Comment on above: Result Comment: KDIG O guidelines provide the following GFR categories: Stage GFR(ml/min/1.73 m2) Terms G1 >=90 Normal or high G2 60-89 Mildly decreased* G3a 45-59 Mildly to moderately decreased G3b 30-44 Moderately to severely decreased G4 15-29 Severely decreased G5 <15 Kidney failure *Relative to young adult level. In the absence of evidence of kidney damage, neither GFR category G1 nor G2 fulfill the criteria for CKD. The CKD-EPI equation is validated in individuals 18 years of age and older. Currently the best equation for estimating glomerular filtration rate (GFR) from serum creatinine in children is the Bedside Valencia equation. It is less accurate in patients with extremes of muscle mass, restriction of dietary protein, ingestion of creatine, extra-renal metabolism of creatinine, or treatment with medications that affect renal tubular creatinine secretion. Performed By: #### B GLU #### [facility] [address], [place] Potassium [Moles/Vol] 4.3 mmol/L Normal 3.5-5.1 [facility] Comment on above: Performed By: #### B GLU #### [facility] [address], [place] Sodium [Moles/Vol] 137 mmol/L Normal 135-145 [facility] Comment on above: Performed By: #### B GLU #### [facility] [address], [place] Albumin [Mass/Vol] 3.4 g/dL Low 3.5-5.0 [facility] Comment on above: Performed By: #### B GLU #### [facility] [address], [place] Chloride [Moles/Vol] 110 mmol/L High 98-107 [facility] Comment on above: Performed By: #### B GLU #### [facility] [address], [place] Comprehensive Metabolic Pane alpesh 01-17-2020 Albumin [Mass/Vol] 3.4 g/dL Low 3.5 - 5 g/dL [place] ALP [Catalytic activity/Vol] 181 U/L High 38 - 126 U/L [place] ALT [Catalytic activity/Vol] 10 U/L 0 - 34 U/L [place] Comment on above: The ALT test is perf ormed by an updated assay method. Please note that the reference intervals have been changed and are now sex specific. Anion gap [Moles/Vol] 10 mmol/L [place] AST [Catalytic activity/Vol] 21 U/L 15 - 46 U/L [place] Bilirubin Ql (U) 0.4 mg/dL 0.2 - 1.3 mg/dL [place] Calcium [Mass/Vol] 8.9 mg/dL 8.4 - 10. 4 mg/dL [place] Chloride [Moles/Vol] 110 mmol/L High 98 - 10 7 mmol/L [place] CO2 [Moles/Vol] 17 mmol/L Low 22 - 30 mmol/L [place] Creatinine [Mass/Vol] 0.68 mg/dL 0.52 - 1.25 mg/dL [place] EGFR IF NonAfrican Moroccan >90.0 >60 mL/min [place] Comment on above: KDIGO guidelines pro vide the following GFR categories: Stage GFR(ml/min/1.73 m2) Terms G1 >=90 Normal or high G2 60-89 Mildly decreased* G3a 45-59 Mildly to moderately decreased G3b 30-44 Moderately to severely decreased G4 15-29 Severely decreased G5 <15 Kidney failure *Relative to young adult level. In the absence of evidence of kidney damage, neither GFR category G1 nor G2 fulfill the criteria for CKD. The CKD-EPI equation is validated in individuals 18 years of age and older. Currently the best equation for estimating glomerular filtration rate (GFR) from serum creatinine in children is the Bedside Valencia equation. It is less accurate in patients with extremes of muscle mass, restriction of dietary protein, ingestion of creatine, extra-renal metabolism of creatinine, or treatment with medications that affect renal tubular creatinine secretion. GFR/1.73 sq M predicted among blacks MDRD (S/P/Bld) [Vol rate/Area] mL/min/{1.73_m2} >60 mL/min [place] Glucose [Mass/Vol] 107 mg/dL High 70 - 100 mg/dL [place] Interpretation and review of laboratory results Abnormal [place] Potassium [Moles/Vol] 4.3 mmol/L 3.5 - 5.1 mmol/L [place] Protein [Mass/Vol] 6.6 g/dL 6.3 - 8.2 g/dL [place] Sodium [Moles/Vol] 137 mmol/L 135 - 145 mmol/L [place] Urea nitrogen [Mass/Vol] 17 mg/dL 7 - 20 mg/d L [place] Test Performed by [facility], [address] [place] [address] [place], [place] Hemogramon 01-17-2020 Erythrocyte distribution width (RBC) [Ratio] 14.0 % Normal 11.5-14.5 [facility] Comment on above: Performed By: #### B GLU #### [facility] [address] [place], [place] Hematocrit (Bld) [Volume fraction] 39.1 % Normal 35.0-47.0 [facility] Comment on above: Performed By: #### B GLU #### [facility] [address], [place] Hemoglobin (Bld) [Mass/Vol] 13.0 g/dL Normal 11.7-16.0 [facility] Comment on above: Performed By: #### B GLU #### [facility] [address], [place] MCH (RBC) [Entitic mass] 27.0 pg Normal 26.0-34.0 [facility] Comment on above: Performed By: #### B GLU #### [facility] [address], [place] MCHC (RBC) [Mass/Vol] 33.2 % Normal 32.0-36.0 [facility] Comment on above: Performed By: #### B GLU #### [facility] [address], [place] MCV (RBC) [Entitic vol] 81.2 fL Normal 79.0-98.0 [facility] Comment on above: Performed By: #### B GLU #### [facility] [address], [place] Platelet mean volume (Bld) [Entitic vol] 9.7 fL Normal 7.4-10.4 [facility] Comment on above: Performed By: #### B GLU #### [facility] [address], [place] Platelets (Bld) [#/Vol] 291 10*3/uL Normal 140-440 [facility] Comment on above: Performed By: #### B GLU #### [place] [address] [address], [place] RBC (Bld) [#/Vol] 4.81 10*6/uL Normal 3.80-5.20 [facility] Comment on above: Performed By: #### B GLU #### [place] [address] [address] [place], [place] WBC (Bld) [#/Vol] 14.4 10*3/uL High 3.6-10.7 [facility] Comment on above: Performed By: #### B GLU #### [place] [address] [address] [place], [place] TS GELon 01-17-2020 TS GEL ABO Group: A Rh, Gel: POS Antibody Screen Gel: NEG Normal [facility] Comment on above: Performed By: #### T SGL #### [place] [address] [address] TYPE AND SCREENon 01-17-2020 Sodium [Moles/Vol] [facility] [place] Sodium [Moles/Vol] Negative [facility]- [place] Sodium [Moles/Vol] A [facility] [place] Test Performed by [facility], [address] [place] [address]- [place] Glucose,Bedsideon 01-16-2020 Glucose [Mass/Vol] 134 mg/dL High 70-100 [facility] Comment on above: Result Comment: Test performed by glucose meter. Results may be 10%-15% lower than serum/plasma values. (CLIA ID [id number]) Performed By: #### H EMDF, CMP3 #### [place] [address] [address] [place], [place] Glucose [Mass/Vol] 104 mg/dL High 70-100 [facility] Comment on above: Result Comment: Test performed by glucose meter. Results may be 10%-15% lower than serum/plasma values. (CLIA ID [id number]) Performed By: #### B GLU #### [place] [address] [place] [address] Glucose [Mass/Vol] 94 mg/dL Normal 70-100 [facility] Comment on above: Result Comment: Test performed by glucose meter. Results may be 10%-15% lower than serum/plasma values. (CLIA ID [id number]) Performed By: #### B GLU #### [facility] [address] [place] [address] Glucose [Mass/Vol] 84 mg/dL Normal 70-100 [facility] Comment on above: Result Comment: Test performed by glucose meter. Results may be 10%-15% lower than serum/plasma values. (CLIA ID [id number]) Performed By: #### H EMDF, CMP3 #### [facility] [address] [place] [address] POCT Glucoseon 01-16-2020 Glucose [Mass/Vol] 134 mg/dL High 70 - 100 mg/dL [place] Comment on above: Test performed by gl ucose meter. Results may be 10%-15% lower than serum/plasma values. (CLIA ID [id number]) Interpretation and review of laboratory results Abnormal [facility], [place] Test Performed by [facility], [facility] [place] [address] [place] Glucose [Mass/Vol] 104 mg/dL High 70 - 100 mg/dL [place] Comment on above: Test performed by gl ucose meter. Results may be 10%-15% lower than serum/plasma values. (CLIA ID [id number]) Interpretation and review of laboratory results Abnormal [facility], [place] Test Performed by [facility], [facility] [place] [address] [place] Glucose [Mass/Vol] 94 mg/dL 70 - 100 mg/dL [place] Comment on above: Test performed by gl ucose meter. Results may be 10%-15% lower than serum/plasma values. (CLIA ID [id number]) Test Performed by [facility], [address] [place] [address] [facility], [place] Glucose [Mass/Vol] 84 mg/dL 70 - 100 mg/dL [place] Comment on above: Test performed by gl ucose meter. Results may be 10%-15% lower than serum/plasma values. (CLIA ID [id number]) Test Performed by [facility], [address] [place] [address] [place], [place] CBC WITH AUTO DIFFERENTIALon 01-15-2020 Absolute Baso # 0.0 10*3/uL 0 - 0.2 10*3/uL [place] Absolute Neut # 11.7 10*3/uL High 1.8 - 7 10*3/uL [place] Interpretation and review of laboratory results Abnormal [place] Test Performed by [facility], [address] [place] [id number] [place] [address] CULTURE URINEon 01-15-2020 CULTURE URINE CULTURE URINE --> Status: F Normal urogenital toy present. Normal [facility] Comment on above: Order Comment: Speci men Source Comment:Urine, clean catch Performed By: #### B GLU #### [place] [address] [address] [place], [place] Comp Metabolic Panelon 01-14 ALP [Catalytic activity/Vol] 167 U/L High 38-126 [facility] Comment on above: Performed By: #### H MAKEDA CMP3 #### [facility] [address] [place], [place] ALT [Catalytic activity/Vol] 10 U/L Normal 0-34 [facility] Comment on above: Result Comment: The ALT test is performed by an updated assay method. Please note that the reference intervals have been changed and are now sex specific. Performed By: #### H BERNAF CMP3 #### [facility] [address] [place], [place] Anion gap [Moles/Vol] 8 Normal [facility] Comment on above: Performed By: #### H BERNAF CMP3 #### [facility] [address] [place], [place] AST [Catalytic activity/Vol] 22 U/L Normal 15-46 [facility] Comment on above: Performed By: #### H EMDF CMP3 #### [facility] [address] [place], [place] Bilirubin [Mass/Vol] 0.4 mg/dL Normal 0.2-1.3 [facility] Health Comment on above: Performed By: #### H EMDF CMP3 #### [facility] [address] [place], [place] Calcium [Mass/Vol] 8.6 mg/dL Normal 8.4-10.4 [facility] Comment on above: Performed By: #### H EMDF CMP3 #### [facility] [address] [place] [place], [place] CO2 [Moles/Vol] 18 mmol/L Low 22-30 [facility] Comment on above: Performed By: #### H EMDF CMP3 #### [facility] [address] [place], [place] Creatinine [Mass/Vol] 0.58 mg/dL Normal 0.52-1.25 [facility] Comment on above: Performed By: #### H EMDF CMP3 #### [facility] [address] [place], [place] GFR/1.73 sq M predicted among blacks MDRD (S/P/Bld) [Vol rate/Area] mL/min/{1.73_m2} Normal >60 [facility] Comment on above: Performed By: #### H EMDF CMP3 #### [facility] [address], [place] GFR/1.73 sq M predicted among non-blacks MDRD (S/P/Bld) [Vol rate/Area] mL/min/{1.73_m2} Normal >60 [facility] Comment on above: Result Comment: KDIG O guidelines provide the following GFR categories: Stage GFR(ml/min/1.73 m2) Terms G1 >=90 Normal or high G2 60-89 Mildly decreased* G3a 45-59 Mildly to moderately decreased G3b 30-44 Moderately to severely decreased G4 15-29 Severely decreased G5 <15 Kidney failure *Relative to young adult level. In the absence of evidence of kidney damage, neither GFR category G1 nor G2 fulfill the criteria for CKD. The CKD-EPI equation is validated in individuals 18 years of age and older. Currently the best equation for estimating glomerular filtration rate (GFR) from serum creatinine in children is the Bedside Valencia equation. It is less accurate in patients with extremes of muscle mass, restriction of dietary protein, ingestion of creatine, extra-renal metabolism of creatinine, or treatment with medications that affect renal tubular creatinine secretion. Performed By: #### H OZ ASHFORD3 #### [place] [address], [place] Glucose [Mass/Vol] 90 mg/dL Normal 70-100 [facility] Comment on above: Performed By: #### H OZ ASHFORD3 #### [place] [address] [place] Protein [Mass/Vol] 6.1 g/dL Low 6.3-8.2 [facility] Comment on above: Performed By: #### H OZ ASHFORD3 #### [place] [address] [address] [place], [place] Urea nitrogen [Mass/Vol] 9 mg/dL Normal 7-20 [facility] Comment on above: Performed By: #### H OZ ASHFORD3 #### [place] [address] [address] [place], [place] Albumin [Mass/Vol] 3.0 g/dL Low 3.5-5.0 [facility] Comment on above: Performed By: #### H OZ ASHFORD3 #### [place] [address] [address] [place], [place] Chloride [Moles/Vol] 110 mmol/L High 98-107 [facility] Comment on above: Performed By: #### H OZ ASHFORD3 #### [place] [address] [address] [place], [place] Potassium [Moles/Vol] 3.8 mmol/L Normal 3.5-5.1 [facility] Comment on above: Performed By: #### H OZ ASHFORD3 #### [place] [address] [address] [place], [place] Sodium [Moles/Vol] 137 mmol/L Normal 135-145 [facility] Comment on above: Performed By: #### H EMD, CMP3 #### [facility] [address] [place] [address] Comprehensive Metabolic Pane alpesh 01-15-2020 Albumin [Mass/Vol] 3.0 g/dL Low 3.5 - 5 g/dL [place], [place] ALP [Catalytic activity/Vol] 167 U/L High 38 - 126 U/L [place] ALT [Catalytic activity/Vol] 10 U/L 0 - 34 U/L [place] Comment on above: The ALT test is perf ormed by an updated assay method. Please note that the reference intervals have been changed and are now sex specific. Anion gap [Moles/Vol] 8 mmol/L [place], [place] AST [Catalytic activity/Vol] 22 U/L 15 - 46 U/L [place] Bilirubin Ql (U) 0.4 mg/dL 0.2 - 1.3 mg/dL [place] Calcium [Mass/Vol] 8.6 mg/dL 8.4 - 10. 4 mg/dL [place] Chloride [Moles/Vol] 110 mmol/L High 98 - 10 7 mmol/L [place] CO2 [Moles/Vol] 18 mmol/L Low 22 - 30 mmol/L [place] Creatinine [Mass/Vol] 0.58 mg/dL 0.52 - 1.25 mg/dL [place] EGFR IF NonAfrican Moroccan >90.0 >60 mL/min [place] Comment on above: KDIGO guidelines pro vide the following GFR categories: Stage GFR(ml/min/1.73 m2) Terms G1 >=90 Normal or high G2 60-89 Mildly decreased* G3a 45-59 Mildly to moderately decreased G3b 30-44 Moderately to severely decreased G4 15-29 Severely decreased G5 <15 Kidney failure *Relative to young adult level. In the absence of evidence of kidney damage, neither GFR category G1 nor G2 fulfill the criteria for CKD. The CKD-EPI equation is validated in individuals 18 years of age and older. Currently the best equation for estimating glomerular filtration rate (GFR) from serum creatinine in children is the Bedside Valencia equation. It is less accurate in patients with extremes of muscle mass, restriction of dietary protein, ingestion of creatine, extra-renal metabolism of creatinine, or treatment with medications that affect renal tubular creatinine secretion. GFR/1.73 sq M predicted among blacks MDRD (S/P/Bld) [Vol rate/Area] mL/min/{1.73_m2} >60 mL/min [place] Glucose [Mass/Vol] 90 mg/dL 70 - 100 mg/dL [place] Interpretation and review of laboratory results Abnormal [place] Potassium [Moles/Vol] 3.8 mmol/L 3.5 - 5.1 mmol/L [place] Protein [Mass/Vol] 6.1 g/dL Low 6.3 - 8.2 g/dL [place] Sodium [Moles/Vol] 137 mmol/L 135 - 145 mmol/L [place] Urea nitrogen [Mass/Vol] 9 mg/dL 7 - 20 mg/d L [place] Test Performed by [facility], [address] [place] [id number] [place] [address] Culture, Urineon 01-15-2020 Bacteria identified Cx Nom (U) Normal urogenital toy present. [place] Test Performed by [facility], [address] [place] [id number] Specimen Source Comment:Urine, clean catch [place] Glucose,Bedsideon 01-15-2020 Glucose [Mass/Vol] 106 mg/dL High 70-100 [facility] Comment on above: Result Comment: Test performed by glucose meter. Results may be 10%-15% lower than serum/plasma values. (CLIA ID [id number]) Performed By: #### H EMD, [facility] #### [facility] [employer] [address] [address] Glucose [Mass/Vol] 66 mg/dL Low 70-100 [facility] Comment on above: Result Comment: Test performed by glucose meter. Results may be 10%-15% lower than serum/plasma values. (CLIA ID [id number]) Performed By: #### B GLU #### [facility] [address] [place] [address] Glucose [Mass/Vol] 79 mg/dL Normal 70-100 [facility] Comment on above: Result Comment: Test performed by glucose meter. Results may be 10%-15% lower than serum/plasma values. (CLIA ID [id number]) Performed By: #### B GLU #### [facility] [address] [place] [address] Glucose [Mass/Vol] 109 mg/dL High 70-100 [facility] Comment on above: Result Comment: Test performed by glucose meter. Results may be 10%-15% lower than serum/plasma values. (CLIA ID [id number]) Performed By: #### B GLU #### [facility] [address] [place] [address] Hemogram w/ Autodiffon 01-14 Abs Baso Cnt 0.0 10*3/uL Normal 0.0-0.2 [facility] Comment on above: Performed By: #### H EMDF, CMP3 #### [facility] [address] [place] [address] Abs Neutrophile Cnt 11.7 10*3/uL High 1.8-7.0 [facility] Comment on above: Performed By: #### H EMDF, CMP3 #### [facility] [address] [place] [address] Basophils/100 WBC (Bld) 0.3 % Normal 0.0-2.0 [place], [place] Comment on above: Performed By: #### H EMDF, CMP3 #### [facility] [address] [place] [address] Eosinophils (Bld) [#/Vol] 0.0 10*3/uL Normal 0.0-0.5 [place] Comment on above: Performed By: #### H EMDF, CMP3 #### [facility] [address] [place] [address] Eosinophils/100 WBC (Bld) 0.1 % Low 1.0-6.0 [place] Comment on above: Performed By: #### H OZ ASHFORD3 #### [place] [address] [place] Erythrocyte distribution width (RBC) [Ratio] 13.8 % Normal 11.5-14.5 [place] Comment on above: Performed By: #### H MAKEDA CMP3 #### [place] [address] [place] Granulocytes/100 WBC (Bld) 81.1 % High 40.0-80.0 [place] Comment on above: Performed By: #### H MAKEDA CMP3 #### [address] Hematocrit (Bld) [Volume fraction] 36.2 % Normal 35.0-47.0 [place] Comment on above: Performed By: #### H MAKEDA CMP3 #### [address] Hemoglobin (Bld) [Mass/Vol] 11.9 g/dL Normal 11.7-16.0 [place] Comment on above: Performed By: #### H MAKEDA CMP3 #### [address] Lymphocytes (Bld) [#/Vol] 1.9 10*3/uL Normal 1.0-4.3 [place] Comment on above: Performed By: #### H MAKEDA CMP3 #### [address] Lymphocytes/100 WBC (Bld) 12.8 % Low 20.0-40.0 [place] Comment on above: Performed By: #### H MAKEDA CMP3 #### [address] MCH (RBC) [Entitic mass] 26.7 pg Normal 26.0-34.0 [place] Comment on above: Performed By: #### H MAKEDA CMP3 #### [place] [address] [place], [place] MCHC (RBC) [Mass/Vol] 32.8 % Normal 32.0-36.0 [place] Comment on above: Performed By: #### H EMDF, CMP3 #### [place] [address] [place], [place] MCV (RBC) [Entitic vol] 81.2 fL Normal 79.0-98.0 [place] Comment on above: Performed By: #### H EMDF, CMP3 #### [place] [address] [place], [place] Monocytes (Bld) [#/Vol] 0.8 10*3/uL Normal 0.0-0.8 [place] Comment on above: Performed By: #### H EMDF CMP3 #### [place] [address] [place], [place] Monocytes/100 WBC (Bld) 5.7 % Normal 2.0-10.0 [place] Comment on above: Performed By: #### H EMDF, CMP3 #### [address] [place] Platelet mean volume (Bld) [Entitic vol] 10.0 fL Normal 7.4-10.4 [place] Comment on above: Performed By: #### H EMDF, CMP3 #### [place] [address] [place], [place] Platelets (Bld) [#/Vol] 211 10*3/uL Normal 140-440 [place] Comment on above: Performed By: #### H EMDF, CMP3 #### [address] RBC (Bld) [#/Vol] 4.46 10*6/uL Normal 3.80-5.20 [place] Comment on above: Performed By: #### H EMDF, CMP3 #### [place] [address] [place] [address] WBC (Bld) [#/Vol] 14.4 10*3/uL High 3.6-10.7 [place] Comment on above: Performed By: #### H EMD, [facility] #### [facility] [address] [place] [address] [facility] US Limitedon 1 03-16-2019 [facility] US Limited Patient Name: NANCY MCDONALD Maternal Medicine Exam Date/Time 01/15/2020 14:25:56 EST Exam [facility] US Limited Ordering Physician DO PALMER ALESSANDRA Accession Number [id number] Reason For Exam Cleft lip, Preeclampsia Report OBSTETRICS REPORT (Signed Final 01/15/2020 03:11 pm) Patient Info ID #: [id number] : [birth year] (29 yrs) Name: NANCY MATOS Visit Date: 01/15/2020 01:57 pm Performed By Performed By: Constanza Kennedy Referred By: EZE PALMER Attending: Bishop Molina MD Service(s) Provided [place] [id number] Indications Preeclampsia Obesity IUGR Cleft lip Evaluation Num Of Fetuses: 1 Preg. Location: Intrauterine Pole: Visualized Cardiac Activity: Present Lie: Longitudinal Presentation: Breech Placenta: Anterior Grade 3 Amniotic Fluid SAMMIE FV: Within normal limits SAMMIE Sum: 9.53 cm 20 %Tile Larg Pckt: 3.84 cm RUQ: 3.84 cm RLQ: 2.71 cm LUQ: 2.98 cm LLQ: 0 cm Gestational Age Clinical AGAPITO: 36w 5d AGAPITO: 02/07/20 Best: 36w 5d Det. By: Clinical AGAPITO AGAPITO: 02/07/20 Impression Rodarte live intrauterine at 36w 5d. The amniotic fluid index is 9.53cm, which is within normal limits. BREECH presentation today Recommendations: Follow-up as clinically indicated. Ultrasound is not diagnostic of chromosomal aneuploidy and does not detect all subtle defects. Normal ultrasound findings do not guarantee normal outcomes. Bishop Molina MD Electronically Signed Final Report 01/15/2020 03:11 pm Final Dictated: 01/15/2020 1:57 pm Dictating Physician: BISHOP JONES Signed Date and Time: 01/15/2020 3:12 pm Signed by: BISHOP JONES Normal [facility] POCT Glucoseon 01-15-2020 Glucose [Mass/Vol] 106 mg/dL High 70 - 100 mg/dL [facility] [employer] [place], [place] Comment on above: Test performed by gl ucose meter. Results may be 10%-15% lower than serum/plasma values. (CLIA ID [id number]) Interpretation and review of laboratory results Abnormal [facility] [place] Test Performed by [facility], [facility] [place] [address] [facility] [place], [place] Glucose [Mass/Vol] 66 mg/dL Low 70 - 100 mg/dL [facility] [place] Comment on above: Test performed by gl ucose meter. Results may be 10%-15% lower than serum/plasma values. (CLIA ID [id number]) Interpretation and review of laboratory results Abnormal [facility] [place], [place] Test Performed by [facility], [facility] [place] [address] [facility] [place], [place] Glucose [Mass/Vol] 79 mg/dL 70 - 100 mg/dL [email or web address] [place], [place] Comment on above: Test performed by gl ucose meter. Results may be 10%-15% lower than serum/plasma values. (CLIA ID [id number]) Test Performed by [facility], [facility] [place] [address] [facility] [place], [place] US LIMITEDon 01-14 [facility] Results From [facility] - 01/15/2020 3:12 PM EST Patient Name: NANCY MATOS ---Maternal Medicine--- Exam Date/Time 01/15/2020 14:25:56 EST Exam [facility] US Limited Ordering Physician DO PALMER ALESSANDRA Accession Number [id number] Reason For Exam Cleft lip, Preeclampsia Report OBSTETRICS REPORT (Signed Final 01/15/2020 03:11 pm) Patient Info ID #: [id number] : [birth year] (29 yrs) Name: NANCY MATOS Visit Date: 01/15/2020 01:57 pm Performed By Performed By: Constanza Kennedy Referred By: EZE PALMER Attending: Bishop Molina MD Service(s) [place] [id number] Indications Preeclampsia Obesity IUGR Cleft lip Evaluation Num Of Fetuses: 1 Preg. Location: Intrauterine Pole: Visualized Cardiac Activity: Present Lie: Longitudinal Presentation: Breech Placenta: Anterior Grade 3 Amniotic Fluid SAMMIE FV: Within normal limits SAMMIE Sum: 9.53 cm 20 %Tile Larg Pckt: 3.84 cm RUQ: 3.84 cm RLQ: 2.71 cm LUQ: 2.98 cm LLQ: 0 cm Gestational Age Clinical AGAPITO: 36w 5d AGAPITO: 02/07/20 Best: 36w 5d Det. By: Clinical AGAPITO AGAPITO: 02/07/20 Impression Rodarte live intrauterine at 36w 5d. The amniotic fluid index is 9.53cm, which is within normal limits. BREECH presentation today Recommendations: Follow-up as clinically indicated. Ultrasound is not diagnostic of chromosomal aneuploidy and does not detect all subtle defects. Normal ultrasound findings do not guarantee normal outcomes. Bishop Molina MD Electronically Signed Final Report 01/15/2020 03:11 pm --- Final --- Dictated: 01/15/2020 1:57 pm Dictating Physician: [id number] HERNADEZ Signed Date and Time: 01/15/2020 3:12 pm Signed by: BISHOP JONES [place], [place] Patient Name: NANCY MATOS ---Maternal Medicine--- Exam Date/Time 01/15/2020 14:25:56 EST Exam [facility] [place] Limited Ordering Physician DO PALMER ALESSANDRA Accession Number [id number] Reason For Exam Cleft lip, Preeclampsia Report OBSTETRICS REPORT (Signed Final 01/15/2020 03:11 pm) Patient Info ID #: [id number] : [birth year] (29 yrs) Name: NANCY MATOS Visit Date: 01/15/2020 01:57 pm Performed By Performed By: Constanza Kennedy Referred By: EZE PALMER Attending: Bishop Molina MD Service(s) [place] [id number] Indications Preeclampsia Obesity IUGR Cleft lip Evaluation Num Of Fetuses: 1 Preg. Location: Intrauterine Pole: Visualized Cardiac Activity: Present Lie: Longitudinal Presentation: Breech Placenta: Anterior Grade 3 Amniotic Fluid SAMMIE FV: Within normal limits SAMMIE Sum: 9.53 cm 20 %Tile Larg Pckt: 3.84 cm RUQ: 3.84 cm RLQ: 2.71 cm LUQ: 2.98 cm LLQ: 0 cm Gestational Age Clinical AGAPITO: 36w 5d AGAPITO: 02/07/20 Best: 36w 5d Det. By: Clinical AGAPITO AGAPITO: 02/07/20 Impression Rodarte live intrauterine at 36w 5d. The amniotic fluid index is 9.53cm, which is within normal limits. BREECH presentation today Recommendations: Follow-up as clinically indicated. Ultrasound is not diagnostic of chromosomal aneuploidy and does not detect all subtle defects. Normal ultrasound findings do not guarantee normal outcomes. Bishop Molina MD Electronically Signed Final Report 01/15/2020 03:11 pm --- Final --- Dictated: 01/15/2020 1:57 pm Dictating Physician: BISHOP JONES Signed Date and Time: 01/15/2020 3:12 pm Signed by: BISHOP JONES [place], [place] CBCon 01-14-2020 Erythrocyte distribution width (RBC) [Ratio] 13.6 % 11.5 - 14.5 % [place] Hematocrit (Bld) [Volume fraction] 39.2 % 35 - 47 % [place] Hemoglobin (Bld) [Mass/Vol] 12.9 g/dL 11.7 - 16 g/dL [place] Interpretation and review of laboratory results Abnormal [place] MCH (RBC) [Entitic mass] 26.7 pg 26 - 34 pg [place] MCHC (RBC) [Mass/Vol] 33.0 % 32 - 36 % [place] MCV (RBC) [Entitic vol] 80.9 fL 79 - 98 fL M [place], [place] Platelet mean volume (Bld) [Entitic vol] 9.6 fL 7.4 - 10.4 fL [place] Platelets (Bld) [#/Vol] 214 10*3/uL 140 - 440 10*3/uL [place] RBC (Bld) [#/Vol] 4.84 10*6/uL 3.8 - 5.2 10*6/uL [place] WBC (Bld) [#/Vol] 19.8 10*3/uL High 3.6 - 10.7 10*3/uL [place] Test [facility] by [facility], [address] [place] [address] [place], [place] COMPREHENSIVE METABOLIC PANE Alpesh 01-14-2020 Albumin [Mass/Vol] 3.5 g/dL 3.5 - 5 g/dL [place], [place] ALP [Catalytic activity/Vol] 185 U/L High 38 - 126 U/L [place] ALT [Catalytic activity/Vol] 11 U/L 0 - 34 U/L [place] Comment on above: The ALT test is perf ormed by an updated assay method. Please note that the reference intervals have been changed and are now sex specific. Anion gap [Moles/Vol] 9 mmol/L [place] AST [Catalytic activity/Vol] 26 U/L 15 - 46 U/L [place] Bilirubin Ql (U) 0.4 mg/dL 0.2 - 1.3 mg/dL [place] Calcium [Mass/Vol] 8.7 mg/dL 8.4 - 10. 4 mg/dL [place] Chloride [Moles/Vol] 109 mmol/L High 98 - 10 7 mmol/L [place] CO2 [Moles/Vol] 18 mmol/L Low 22 - 30 mmol/L [place] Creatinine [Mass/Vol] 0.64 mg/dL 0.52 - 1.25 mg/dL [place] EGFR IF NonAfrican Moroccan >90.0 >60 mL/min [place] Comment on above: KDIGO guidelines pro vide the following GFR categories: Stage GFR(ml/min/1.73 m2) Terms G1 >=90 Normal or high G2 60-89 Mildly decreased* G3a 45-59 Mildly to moderately decreased G3b 30-44 Moderately to severely decreased G4 15-29 Severely decreased G5 <15 Kidney failure *Relative to young adult level. In the absence of evidence of kidney damage, neither GFR category G1 nor G2 fulfill the criteria for CKD. The CKD-EPI equation is validated in individuals 18 years of age and older. Currently the best equation for estimating glomerular filtration rate (GFR) from serum creatinine in children is the Bedside Valencia equation. It is less accurate in patients with extremes of muscle mass, restriction of dietary protein, ingestion of creatine, extra-renal metabolism of creatinine, or treatment with medications that affect renal tubular creatinine secretion. GFR/1.73 sq M predicted among blacks MDRD (S/P/Bld) [Vol rate/Area] mL/min/{1.73_m2} >60 mL/min [place] Glucose [Mass/Vol] 75 mg/dL 70 - 100 mg/dL [place] Interpretation and review of laboratory results Abnormal [place] Potassium [Moles/Vol] 4.3 mmol/L 3.5 - 5.1 mmol/L [place] Protein [Mass/Vol] 6.7 g/dL 6.3 - 8.2 g/dL [place] Sodium [Moles/Vol] 136 mmol/L 135 - 145 mmol/L [place] Urea nitrogen [Mass/Vol] 11 mg/dL 7 - 20 mg/d L [place] Test Performed by [facility], [address] [place] [address] [place], [place] Comp Metabolic Panelon 01-13 Calcium [Mass/Vol] 8.7 mg/dL Normal 8.4-10.4 [facility] Comment on above: Performed By: #### H OZ ASHFORD3 #### [address] ALP [Catalytic activity/Vol] 185 U/L High 38-126 [facility] Comment on above: Performed By: #### H MAKEDA CMP3 #### [address] ALT [Catalytic activity/Vol] 11 U/L Normal 0-34 [facility] Comment on above: Result Comment: The ALT test is performed by an updated assay method. Please note that the reference intervals have been changed and are now sex specific. Performed By: #### H MAKEDA CMP3 #### [address] [address] [place] Anion gap [Moles/Vol] 9 Normal [facility] Comment on above: Performed By: #### H MAKEDA CMP3 #### [address] AST [Catalytic activity/Vol] 26 U/L Normal 15-46 [facility] Comment on above: Performed By: #### H MAKEDA CMP3 #### [address] Bilirubin [Mass/Vol] 0.4 mg/dL Normal 0.2-1.3 [facility] Comment on above: Performed By: #### H EMDF, CMP3 #### [facility] [address] [place], [place] CO2 [Moles/Vol] 18 mmol/L Low 22-30 [facility] Comment on above: Performed By: #### H EMDF, CMP3 #### [facility] [address] [place], [place] Glucose [Mass/Vol] 75 mg/dL Normal 70-100 [facility] Comment on above: Performed By: #### H EMDF, CMP3 #### [facility] [address] [place], [place] Protein [Mass/Vol] 6.7 g/dL Normal 6.3-8.2 [facility] Comment on above: Performed By: #### H EMDF, CMP3 #### [facility] [address] [place], [place] Urea nitrogen [Mass/Vol] 11 mg/dL Normal 7-20 [facility] Comment on above: Performed By: #### H EMDF, CMP3 #### [facility] [address] [place], [place] Creatinine [Mass/Vol] 0.64 mg/dL Normal 0.52-1.25 [facility] Comment on above: Performed By: #### H EMDF, CMP3 #### [facility] [address] [place], [place] GFR/1.73 sq M predicted among blacks MDRD (S/P/Bld) [Vol rate/Area] mL/min/{1.73_m2} Normal >60 [facility] Comment on above: Performed By: #### H EMDF, CMP3 #### [facility] [address] [place], [place] GFR/1.73 sq M predicted among non-blacks MDRD (S/P/Bld) [Vol rate/Area] mL/min/{1.73_m2} Normal >60 [facility] Comment on above: Result Comment: KDIG O guidelines provide the following GFR categories: Stage GFR(ml/min/1.73 m2) Terms G1 >=90 Normal or high G2 60-89 Mildly decreased* G3a 45-59 Mildly to moderately decreased G3b 30-44 Moderately to severely decreased G4 15-29 Severely decreased G5 <15 Kidney failure *Relative to young adult level. In the absence of evidence of kidney damage, neither GFR category G1 nor G2 fulfill the criteria for CKD. The CKD-EPI equation is validated in individuals 18 years of age and older. Currently the best equation for estimating glomerular filtration rate (GFR) from serum creatinine in children is the Bedside Valencia equation. It is less accurate in patients with extremes of muscle mass, restriction of dietary protein, ingestion of creatine, extra-renal metabolism of creatinine, or treatment with medications that affect renal tubular creatinine secretion. Performed By: #### H OZ ASHFORD3 #### [address] Potassium [Moles/Vol] 4.3 mmol/L Normal 3.5-5.1 [facility] Comment on above: Performed By: #### H OZ ASHFORD3 #### [address] Albumin [Mass/Vol] 3.5 g/dL Normal 3.5-5.0 [facility] Comment on above: Performed By: #### H OZ ASHFORD3 #### [address] Chloride [Moles/Vol] 109 mmol/L High 98-107 [facility] Comment on above: Performed By: #### H OZ ASHFORD3 #### [address] Sodium [Moles/Vol] 136 mmol/L Normal 135-145 [facility] Comment on above: Performed By: #### H OZ ASHFORD3 #### [address] Creatinine, Random Urineon 1 03-15-2019 Creatinine (U) [Mass/Vol] 54.0 mg/dL No Range [place] Test Performed by [facility], [address] [place] [address] [place] Creatinine, Ur Randomon 11-0 Creatinine, Ur Random 54.0 mg/dL Normal No Range [facility] Comment on above: Performed By: #### H OZ ASHFORD3 #### [address] [address] [address] [place], [place] Hemogramon 01-14-2020 Erythrocyte distribution width (RBC) [Ratio] 13.6 % Normal 11.5-14.5 [facility] Comment on above: Performed By: #### H OZ [id number] #### [place] [address] [address] [place], [place] Hematocrit (Bld) [Volume fraction] 39.2 % Normal 35.0-47.0 [facility] Comment on above: Performed By: #### H MAKEDA CMP3 #### [place] [address] [address] [place], [place] Hemoglobin (Bld) [Mass/Vol] 12.9 g/dL Normal 11.7-16.0 [facility] Comment on above: Performed By: #### H MAKEDA CMP3 #### [place] [address] [address] [place], [place] MCH (RBC) [Entitic mass] 26.7 pg Normal 26.0-34.0 [facility] Comment on above: Performed By: #### H MAKEDA CMP3 #### [place] [address] [address] [place], [place] MCHC (RBC) [Mass/Vol] 33.0 % Normal 32.0-36.0 [facility] Comment on above: Performed By: #### H MAKEDA CMP3 #### [place] [address] [address] [place], [place] MCV (RBC) [Entitic vol] 80.9 fL Normal 79.0-98.0 [facility] Comment on above: Performed By: #### H MAKEDA CMP3 #### [place] [address] [address] [place], [place] Platelet mean volume (Bld) [Entitic vol] 9.6 fL Normal 7.4-10.4 [facility] Comment on above: Performed By: #### H MAKEDA CMP3 #### [facility] [address] [place], [place] Platelets (Bld) [#/Vol] 214 10*3/uL Normal 140-440 [facility] Comment on above: Performed By: #### H EMDF, CMP3 #### [facility] [address] [place], [place] RBC (Bld) [#/Vol] 4.84 10*6/uL Normal 3.80-5.20 [facility] Comment on above: Performed By: #### H EMDF, CMP3 #### [facility] [address] [place], [place] WBC (Bld) [#/Vol] 19.8 10*3/uL High 3.6-10.7 [facility] Comment on above: Performed By: #### H EMDF, CMP3 #### [facility] [address] [place], [place] POCT Glucoseon 01-14-2020 Glucose [Mass/Vol] 109 mg/dL High 70 - 100 mg/dL [place], [place] Comment on above: Test performed by ucose meter. Results may be 10%-15% lower than serum/plasma values. (CLIA ID [id number]) Interpretation and review of laboratory results Abnormal [place], [place] Test Performed by [facility], [address] [place] [id number] [place] [address] PROTEIN, URINEon 01-14-2020 Interpretation and review of laboratory results Abnormal [place], [place] Protein (U) [Mass/Vol] 300 mg/dL Abnormal Negative [place], [place] Comment on above: . Test Performed by [facility], [facility] [place], [place] [id number] [place] [address] TS GELon 01-14-2020 TS GEL ABO Group: A Rh, Gel: POS Antibody Screen Gel: NEG Normal [facility] Comment on above: Performed By: #### T SGL #### [place] [address] [place] [address] [facility] TYPE AND SCREENon 01-14-2020 Sodium [Moles/Vol] Negative [facility] [place], [place] Sodium [Moles/Vol] Positive [facility] [place], [place] Sodium [Moles/Vol] A [facility], [place] Test Performed by [facility], [facility] [place] [address] [facility], [place] Total Protein,Urineon 2019 Protein (U) [Mass/Vol] 300 mg/dL Abnormal Negative [facility] Comment on above: Result Comment: . Performed By: #### B GLU #### [facility] [place] [address] POC Rapid Strep Aon 01-08-20 18 S. pyogenes Ag IA Ql (Unsp spec) Negative Normal Negative [facility] Comment on above: Order Comment: [id number] Negative arudy Y Result Comment: No d etectable Group A Streptococcus antigen present. Throat culture report to follow. Performed By: #### P OCSTREPA #### [facility] [address] [place] [id number] Urgent Care Noteson 01-08-20 18 Urgent Care Notes [address] [address] Urgent Care Visit Notes Signed PRELIMINARY DRAFT REPORT UNTIL ELECTRONICALLY SIGNED PATIENT: Nancy Matos MR#: [id number] : 1990 AGE/SEX: 27 / F ADMITTED: 01/07/18 OUTSIDE LOCN: LOCATION: 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 Please Note: If you feel that your illness or injury will require an extended time-off period please follow up with your PCP or Occupational Health provider. The [facility]gent Care Clinic does not do Family Medical Leave Act (FMLA) evaluations. Prescriptions: Benzonatate [Tessalon] 100 mg PO TID PRN #18 capsule PRN Reason: Cough GuaiFENesin ER [Mucinex] 1,200 mg PO BID PRN #28 tab PRN Reason: Congestion Referrals: NONE,PCP [Primary Care Provider] - (Follow up with your family doctor in the next week) Forms: Work/School Release History of Present Illness - General Chief Complaint: UC Upper Respiratory Infection Stated Complaint: headache, sore throat Source: patient Mode of arrival: ambulatory Nursing Notes Reviewed: Yes Vital Signs Reviewed: Yes - History of Present Illness HPI Narrative: History provided by the patient. 27-year-old female presents to the urgent care with sinus congestion and sore throat. Patient reports that her symptoms started yesterday. She reports that she has had sinus congestion, sore throat, headache, and mild cough which occurs with sinus drainage. She denies any fevers. She reports that yesterday she did take ibuprofen for symptomatic relief. She reports that this morning when she woke up she felt worse. She denies any neck pain or stiffness. Denies nausea or vomiting. Denies rash. Patient does have a history of PCOS and seasonal allergies. Patient denies smoking. She denies . - Related Data Home Medications Medication Instructions Recorded Confirmed Singulair 01/07/18 Ikb-Ag-Jlligf Tablet 01/07/18 Zyrtec 01/07/18 metFORMIN 01/07/18 Previous Rx's Medication Instructions Recorded Benzonatate [Tessalon] 100 mg PO TID PRN #18 capsule 01/07/18 GuaiFENesin ER [Mucinex] 1,200 mg PO BID PRN #28 tab 01/07/18 Allergies Allergy/AdvReac Type Severity Reaction Status Date / Time acetaminophen [From Vicodin] Allergy Hallucinati Verified 01/07/18 08:45 ng Erythromycin Base Allergy Gastrointestinal Verified 01/07/18 08:45 Upset hydrocodone [From Vicodin] Allergy Hallucinati Verified 01/07/18 08:45 ng Penicillins Allergy Rash Verified 01/07/18 08:45 diazepam [From Valium] AdvReac See Verified 01/07/18 08:45 Comments Constitutional: Denies: fever ENT ED: Reports: throat pain, congestion, other (ear pressure) Respiratory: Reports: cough. Denies: sputum production Gastrointestinal: Denies: abdominal pain, nausea Musculoskeletal: Denies: neck pain Integumentary: Denies: rash Neurological: Reports: headache URI PMH - Past Medical History Medical history: Reports: other - Social History Smoking Status: Never smoker Alcohol use: Reports: none Physical Exam - General General appearance: alert, other (Patient is nontoxic appearing.) - ENT ENT exam: mucous membranes moist, TM's normal bilaterally - Expanded ENT Exam External ear exam: Absent: mastoid tenderness, periauricular adenopathy Mouth exam: Absent: drooling, trismus Throat exam: Present: tonsillar erythema (Mild), tonsillomegaly (Mild), other (Uvula is midline. There is no dysphonia.). Absent: tonsillar exudate, R peritonsillar mass, L peritonsillar mass, muffled voice - Neck Neck exam: Absent: meningismus, lymphadenopathy - Respiratory Respiratory exam: Present: normal lung sounds bilaterally. Absent: respiratory distress, wheezes, stridor - Cardiovascular Cardiovascular exam: Present: regular rate, normal rhythm, normal heart sounds - Expanded Cardiovascular Exam Peripheral pulses: 2+: radial (R), radial (L) - Neurological Exam Neurological exam: Present: alert Upper Respiratory Infection - MDM Narrative Medical decision making narrative: Patient's rapid strep test is negative. Symptoms are consistent with viral etiology. Patient will be treated with Mucinex as well as Tessalon Perles. 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 She reports that she does not tolerate capmist due to development of palpitations. Discussed with patient I do not feel antibiotics are indicated at this time. Discussed returning if symptoms have not improved over the next week. Questions were addressed. Patient expressed understanding and was agreeable with plan. Urgent Care Charge Sheet - Level Charges New Patient Charge Levels: [id number] E M Level 2 Course Vital Signs Temperature 98.1 F 01/07/18 08:38 Pulse Rate 90 01/07/18 08:38 Respiratory Rate 18 01/07/18 08:38 Blood Pressure 123/88 01/07/18 08:38 O2 Sat by Pulse Oximetry 98 01/07/18 08:38 Temperature 98.1 F 01/07/18 08:38 Pulse Rate 90 01/07/18 08:38 Respiratory Rate 18 01/07/18 08:38 Blood Pressure 123/88 01/07/18 08:38 O2 Sat by Pulse Oximetry 98 01/07/18 08:38 Oxygen Delivery Oxygen Delivery Room Air Documented By: Amador Addison PAC Signed By: 01/07/18 0921 DD/ 0850 Initialized By: [id number] [facility] POC Bacterial Vaginosison Bacterial Vaginosis Negative Invalid Interpretation Code Negative [facility] Interpretation and review of laboratory results Normal Invalid Interpretation Code [facility] POC Rapid Trichomonason 09-08 Internal Control Pass Invalid Interpretation Code [facility] Interpretation and review of laboratory results Normal Invalid Interpretation Code [facility] Rapid Trichomonas Negative Invalid Interpretation Code Negative [facility] POC Urinalysis Dipstick,Auto UCon 09-17-2017 Bilirubin Ql (U) Negative Invalid Interpretation Code Negative [facility] Clarity, UA Clear Invalid Interpretation Code Clear [facility] Color Auto Nom (U) Light Yellow Invalid Interpretation Code Yellow, Light Yellow, Dark Yellow [facility] Interpretation and review of laboratory results Abnormal Invalid Interpretation Code [facility] Urine, glucose presence Negative Invalid Interpretation Code Normal, Negative mg/dL [facility] Urine, hemoglobin presence Negative Invalid Interpretation Code Negative [facility] Urine, ketones presence Negative Invalid Interpretation Code Negative mg/dL [facility] Urine, leukocyte esterase presence Small Abnormal Negative [facility] Urine, nitrite presence Negative Invalid Interpretation Code Negative [facility] Urine, pH 7.0 [pH] Invalid Interpretation Code 5.0 - 7.0 [facility] Urine, protein presence Negative Invalid Interpretation Code Negative mg/dL [facility] Urine, specific gravity 1.010 1 Invalid Interpretation Code 1.005 - 1.025 [facility] Urine, urobilinogen 0.2 mg/dL Invalid Interpretation Code <2.0, 0.2, Normal, Negative, 1.0, 2.0, <1.0 [facility] Vital Signs Date Time Vital Sign Value Performing Clinician Facility 09-10-2024 09:[id number] Body height 162.[address] Marivel Danielson MD Work Phone: [facility] 09-10-2024 09:[id number] Body mass index (BMI) [Ratio] 45.8 kg/m2 Dr. Marivel Danielson MD Work Phone: [facility] 09-10-2024 [id number] Body temperature 97.2 [degF] Dr. Marivel Danielson MD Work Phone: [facility] 09-10-2024 09:06-0400 Body weight 121.[address] Marivel Danielson MD Work Phone: [facility] 09-10-2024 09:06-0400 Diastolic blood pressure 70 mm[Hg] Dr. Marivel Danielson MD Work Phone: [facility] 09-10-2024 09:06-0400 Heart rate 87 /min Dr. Marivel Danielson MD Work Phone: [facility] 09-10-2024 09:06-0400 Respiratory rate 18 /min Dr. Marivel Danielson MD Work Phone: [facility] 09-10-2024 09:06-0400 SaO2% (BldA) [Mass fraction] 98 % Dr. Marivel Danielson MD Work Phone: [facility] 09-10-2024 09:06-0400 Systolic blood pressure 110 mm[Hg] Dr. Marivel Danielson MD Work Phone: [facility] 09-02-2024 08:30-0400 Body height 162.[address] Marivel Danielson MD Work Phone: [facility] 09-02-2024 08:30-0400 Body mass index (BMI) [Ratio] 45.7 kg/m2 Dr. Marivel Danielson MD Work Phone: [facility] 09-02-2024 08:30-0400 Body weight 120.[address] Marivel Danielson MD Work Phone: [facility] 09-02-2024 08:30-0400 Diastolic blood pressure 76 mm[Hg] Dr. Marivel Danielson MD Work Phone: [facility] 09-02-2024 08:30-0400 Systolic blood pressure 109 mm[Hg] Dr. Marivel Danielson MD Work Phone: [facility] 08-07-2024 14:09-0400 Body height 162.56 cm Sidney Keymeggano 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-C Work Phone: [facility] 08-07-2024 14:07-0400 Body mass index (BMI) [Ratio] 45.1 kg/m2 Sidney Keymeggano 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-C Work Phone: [facility] 08-07-2024 14:07-0400 Body weight 119.4 kg Sidney Keyullo 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-C Work Phone: [facility] 08-07-2024 14:07-0400 Diastolic blood pressure 85 mm[Hg] Sidneyedison Keymeggano 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-C Work Phone: [facility] 08-07-2024 14:07-0400 Systolic blood pressure 123 mm[Hg] Sidneyedison Keyullo 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-C Work Phone: [facility] 07-22-2024 14:11-0400 Body temperature 98 [degF] Sidneyedison Keyullo 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-C Work Phone: [facility] 07-22-2024 14:11-0400 Diastolic blood pressure 78 mm[Hg] Sidneyedison Keyullo 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-C Work Phone: [facility] 07-22-2024 14:11-0400 Heart rate 81 /min Sidney Keyullo 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-C Work Phone: [facility] 07-22-2024 14:11-0400 Respiratory rate 18 /min Sidneyedison Keyullo 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-C Work Phone: [facility] 07-22-2024 14:11-0400 SaO2% (BldA) [Mass fraction] 99 % Sidneyedison Keyullo 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-C Work Phone: [facility] 07-22-2024 14:11-0400 Systolic blood pressure 131 mm[Hg] Sidney Shahidullo 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-C Work Phone: [facility] 07-22-2024 09:37-0400 Body height 162.56 cm Sidney Saunderso 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-C Work Phone: [facility] 07-22-2024 09:37-0400 Body mass index (BMI) [Ratio] 44.6 kg/m2 Sidney Saunderso 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-C Work Phone: [facility] 07-22-2024 09:37-0400 Body weight 118.02 kg Sidney Saunderso 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-C Work Phone: [facility] 06-02-2024 16:31-0400 Body temperature 97.8 [degF] Sidney Saunderso 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-C Work Phone: [facility] 06-02-2024 16:31-0400 Diastolic blood pressure 70 mm[Hg] Sidney Saunderso 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-C Work Phone: [facility] 06-02-2024 16:31-0400 Heart rate 86 /min Sidney Saunderso 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-C Work Phone: [facility] 06-02-2024 16:31-0400 Respiratory rate 16 /min Sidney Saunderso 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-C Work Phone: [facility] 06-02-2024 16:31-0400 SaO2% (BldA) [Mass fraction] 96 % Sidney Saunderso 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-C Work Phone: [facility] 06-02-2024 16:31-0400 Systolic blood pressure 112 mm[Hg] Sidney Saunderso 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-C Work Phone: [facility] 04-10-2024 10:42-0500 Body mass index (BMI) [Ratio] 42.2 kg/m2 Sidneyedison Keyullo 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-C Work Phone: [facility] 04-10-2024 10:42-0500 Body temperature 96.2 [degF] Sidneyedison Saunderso 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-C Work Phone: [facility] 04-10-2024 10:42-0500 Body weight 111.64 kg Sidneyedison Saunderso 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-C Work Phone: [facility] 04-10-2024 10:42-0500 Diastolic blood pressure 78 mm[Hg] Sidney Saunderslela 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-C Work Phone: [facility] 04-10-2024 10:42-0500 Heart rate 71 /min Sidney Jackson 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-C Work Phone: [facility] 04-10-2024 10:42-0500 Respiratory rate 16 /min Sidney Jackson 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-C Work Phone: [facility] 04-10-2024 10:42-0500 SaO2% (BldA) [Mass fraction] 98 % Sidney Jackson 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-C Work Phone: [facility] 04-10-2024 10:42-0500 Systolic blood pressure 120 mm[Hg] Sidney Saunderso 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-C Work Phone: [facility] 07-20-2023 08:07-0400 Body temperature 98.3 [degF] No Primary Care Physician [facility] 07-20-2023 08:07-0400 Diastolic blood pressure 64 mm[Hg] No Primary Care Physician [facility] 07-20-2023 08:07-0400 Heart rate 86 /min No Primary Care Physician [facility] 07-20-2023 08:07-0400 Respiratory rate 16 /min No Primary Care Physician [facility] 07-20-2023 08:07-0400 SaO2% (BldA) [Mass fraction] 98 % No Primary Care Physician [facility] 07-20-2023 08:07-0400 Systolic blood pressure 116 mm[Hg] No Primary Care Physician [facility] 07-18-2023 09:49-0400 Body height 162.56 cm No Primary Care Physician [facility] 07-18-2023 09:49-0400 Body mass index (BMI) [Ratio] 41.7 kg/m2 No Primary Care Physician [facility] 07-18-2023 09:49-0400 Body weight 110.22 kg No Primary Care Physician [facility] 07-12-2023 14:59-0400 Body mass index (BMI) [Ratio] 41 kg/m2 No Primary Care Physician [facility] 07-12-2023 14:59-0400 Body weight 108.4 kg No Primary Care Physician [facility] 07-12-2023 14:59-0400 Diastolic blood pressure 84 mm[Hg] No Primary Care Physician [facility] 07-12-2023 14:59-0400 Systolic blood pressure 127 mm[Hg] No Primary Care Physician [facility] 07-04-2023 14:03-0400 Body height 162.56 cm No Primary Care Physician [facility] 07-04-2023 14:03-0400 Body mass index (BMI) [Ratio] 41.2 kg/m2 No Primary Care Physician [facility] 07-04-2023 14:03-0400 Body weight 108.97 kg No Primary Care Physician [facility] 07-04-2023 14:03-0400 Diastolic blood pressure 82 mm[Hg] No Primary Care Physician [facility] 07-04-2023 14:03-0400 Systolic blood pressure 120 mm[Hg] No Primary Care Physician [facility] 06-28-2023 13:47-0400 Body mass index (BMI) [Ratio] 40.3 kg/m2 No Primary Care Physician [facility] 06-28-2023 13:47-0400 Body weight 106.59 kg No Primary Care Physician [facility] 06-28-2023 13:47-0400 Diastolic blood pressure 83 mm[Hg] No Primary Care Physician [facility] 06-28-2023 13:47-0400 Systolic blood pressure 121 mm[Hg] No Primary Care Physician [facility] 06-21-2023 13:36-0400 Body height 162.56 cm No Primary Care Physician [facility] 06-21-2023 13:34-0400 Body mass index (BMI) [Ratio] 38.2 kg/m2 No Primary Care Physician [facility] 06-21-2023 13:34-0400 Body weight 101.15 kg No Primary Care Physician [facility] 06-21-2023 13:34-0400 Diastolic blood pressure 77 mm[Hg] No Primary Care Physician [facility] 06-21-2023 13:34-0400 Systolic blood pressure 111 mm[Hg] No Primary Care Physician [facility] 06-18-2023 19:45-0400 Diastolic blood pressure 73 mm[Hg] No Primary Care Physician [facility] 06-18-2023 19:45-0400 Heart rate 100 /min No Primary Care Physician [facility] 06-18-2023 19:45-0400 Systolic blood pressure 121 mm[Hg] No Primary Care Physician [facility] 06-18-2023 19:41-0400 Body height 162.56 cm No Primary Care Physician [facility] 06-18-2023 19:41-0400 Body mass index (BMI) [Ratio] 40.8 kg/m2 No Primary Care Physician [facility] 06-18-2023 19:41-0400 Body weight 108.1 kg No Primary Care Physician [facility] 06-18-2023 17:50-0400 SaO2% (BldA) [Mass fraction] 98 % No Primary Care Physician [facility] 06-18-2023 17:45-0400 Body temperature 99.3 [degF] No Primary Care Physician [facility] 06-18-2023 17:45-0400 Respiratory rate 22 /min No Primary Care Physician [facility] 06-14-2023 13:25-0400 Body mass index (BMI) [Ratio] 42.3 kg/m2 No Primary Care Physician [facility] 06-14-2023 13:25-0400 Body weight 108.4 kg No Primary Care Physician [facility] 06-14-2023 13:25-0400 Diastolic blood pressure 69 mm[Hg] No Primary Care Physician [facility] 06-14-2023 13:25-0400 Systolic blood pressure 101 mm[Hg] No Primary Care Physician [facility] 06-07-2023 13:20-0400 Body height 160.02 cm No Primary Care Physician [facility] 06-07-2023 13:19-0400 Body mass index (BMI) [Ratio] 41.8 kg/m2 No Primary Care Physician [facility] 06-07-2023 13:19-0400 Body weight 107.27 kg No Primary Care Physician [facility] 06-07-2023 13:19-0400 Diastolic blood pressure 70 mm[Hg] No Primary Care Physician [facility] 06-07-2023 13:19-0400 Systolic blood pressure 111 mm[Hg] No Primary Care Physician [facility] 05-31-2023 15:29-0400 Body mass index (BMI) [Ratio] 42.1 kg/m2 No Primary Care Physician [facility] 05-31-2023 15:29-0400 Body weight 107.95 kg No Primary Care Physician [facility] 05-31-2023 15:29-0400 Diastolic blood pressure 69 mm[Hg] No Primary Care Physician [facility] 05-31-2023 15:29-0400 Systolic blood pressure 115 mm[Hg] No Primary Care Physician [facility] 05-25-2023 18:45-0400 Body height 160.02 cm No Primary Care Physician [facility] 05-25-2023 18:45-0400 Body mass index (BMI) [Ratio] 42.3 kg/m2 No Primary Care Physician [facility] 05-25-2023 18:45-0400 Body weight 108.2 kg No Primary Care Physician [facility] 05-25-2023 18:24-0400 Diastolic blood pressure 64 mm[Hg] No Primary Care Physician [facility] 05-25-2023 18:24-0400 Heart rate 93 /min No Primary Care Physician [facility] 05-25-2023 18:24-0400 Systolic blood pressure 119 mm[Hg] No Primary Care Physician [facility] 05-25-2023 18:23-0400 Body temperature 98.3 [degF] No Primary Care Physician [facility] 05-25-2023 18:23-0400 Respiratory rate 14 /min No Primary Care Physician [facility] 05-25-2023 18:23-0400 SaO2% (BldA) [Mass fraction] 98 % No Primary Care Physician [facility] 05-17-2023 14:50-0500 Body mass index (BMI) [Ratio] 41.1 kg/m2 No Primary Care Physician [facility] 05-17-2023 14:50-0500 Body weight 108.86 kg No Primary Care Physician [facility] 05-17-2023 14:50-0500 Diastolic blood pressure 72 mm[Hg] No Primary Care Physician [facility] 05-17-2023 14:50-0500 Systolic blood pressure 115 mm[Hg] No Primary Care Physician [facility] 05-03-2023 13:56-0500 Body weight 108.4 kg No Primary Care Physician [facility] 05-03-2023 13:56-0500 Diastolic blood pressure 86 mm[Hg] No Primary Care Physician [facility] 05-03-2023 13:56-0500 Systolic blood pressure 134 mm[Hg] No Primary Care Physician [facility] 05-03-2023 13:39-0500 Body height 162.56 cm No Primary Care Physician [facility] 04-05-2023 14:11-0500 Body mass index (BMI) [Ratio] 41.8 kg/m2 No Primary Care Physician [facility] 04-05-2023 14:11-0500 Body weight 110.67 kg No Primary Care Physician [facility] 04-05-2023 14:11-0500 Diastolic blood pressure 78 mm[Hg] No Primary Care Physician [facility] 04-05-2023 14:11-0500 Systolic blood pressure 120 mm[Hg] No Primary Care Physician [facility] 03-07-2023 16:17-0500 Body mass index (BMI) [Ratio] 41.3 kg/m2 No Primary Care Physician [facility] 03-07-2023 16:17-0500 Body temperature 99.3 [degF] No Primary Care Physician [facility] 03-07-2023 16:17-0500 Body weight 109.31 kg No Primary Care Physician [facility] 03-07-2023 16:17-0500 Diastolic blood pressure 79 mm[Hg] No Primary Care Physician [facility] 03-07-2023 16:17-0500 Heart rate 96 /min No Primary Care Physician [facility] 03-07-2023 16:17-0500 Respiratory rate 15 /min No Primary Care Physician [facility] 03-07-2023 16:17-0500 SaO2% (BldA) [Mass fraction] 97 % No Primary Care Physician [facility] 03-07-2023 16:17-0500 Systolic blood pressure 118 mm[Hg] No Primary Care Physician [facility] 03-06-2023 11:48-0500 Body mass index (BMI) [Ratio] 41.5 kg/m2 No Primary Care Physician [facility] 03-06-2023 11:48-0500 Body weight 109.93 kg No Primary Care Physician [facility] 03-06-2023 11:48-0500 Diastolic blood pressure 77 mm[Hg] No Primary Care Physician [facility] 03-06-2023 11:48-0500 Heart rate 93 /min No Primary Care Physician [facility] 03-06-2023 11:48-0500 Systolic blood pressure 114 mm[Hg] No Primary Care Physician [facility] 02-08-2023 15:54-0500 Body mass index (BMI) [Ratio] 42.4 kg/m2 No Primary Care Physician [facility] 02-08-2023 15:54-0500 Body weight 112.03 kg No Primary Care Physician [facility] 02-08-2023 15:54-0500 Diastolic blood pressure 85 mm[Hg] No Primary Care Physician [facility] 02-08-2023 15:54-0500 Systolic blood pressure 122 mm[Hg] No Primary Care Physician [facility] 01-11-2023 15:22-0400 Body height 162.[address] Valeria Aguilera Work Phone: [facility] 01-11-2023 15:22-0400 Body mass index (BMI) [Ratio] 42.4 kg/m2 Dr. Valeria Aguilera Work Phone: [facility] 01-11-2023 15:22-0400 Body weight 112.[address] Valeria Aguilera Work Phone: [facility] 01-11-2023 15:22-0400 Diastolic blood pressure 83 mm[Hg] Dr. Valeria Aguilera Work Phone: [facility] 01-11-2023 15:22-0400 Systolic blood pressure 123 mm[Hg] Dr. Valeria Aguilera Work Phone: [facility] 12-14-2022 13:16-0400 Body mass index (BMI) [Ratio] 41.5 kg/m2 Dr. Valeria Aguilera Work Phone: [facility] 12-14-2022 13:16-0400 Body weight 109.[address] Vlaeria Aguilera Work Phone: [facility] 12-14-2022 13:16-0400 Diastolic blood pressure 95 mm[Hg] Dr. Valeria Aguilera Work Phone: [facility] 12-14-2022 13:16-0400 Systolic blood pressure 136 mm[Hg] Dr. Valeria Aguilera Work Phone: [facility] 12-13-2022 09:57-0400 Body mass index (BMI) [Ratio] 41.1 kg/m2 Dr. Valeria Aguilera Work Phone: [facility] 12-13-2022 09:57-0400 Body weight 108.[address] Valeria Aguilera Work Phone: [facility] 04-16-2022 10:04-0500 Body height 161.3 cm Juani Lisha CHECK TOTALER Work Phone: [facility] 04-16-2022 10:04-0500 Body mass index (BMI) [Ratio] 40.8 kg/m2 Juani Lisha CHECK TOTALER Work Phone: [facility] 04-16-2022 10:04-0500 Body weight 106.14 kg Juani Lisha CHECK TOTALER Work Phone: [facility] 04-16-2022 10:04-0500 Diastolic blood pressure 76 mm[Hg] Juani Lisha CHECK TOTALER Work Phone: [facility] 04-16-2022 10:04-0500 Heart rate 83 /min Juani Lisha CHECK TOTALER Work Phone: [facility] 04-16-2022 10:04-0500 SaO2% (BldA) [Mass fraction] 97 % Juani Lisha CHECK TOTALER Work Phone: [facility] 04-16-2022 10:04-0500 Systolic blood pressure 117 mm[Hg] Juani Lisha CHECK TOTALER Work Phone: [facility] 11-16-2021 09:14-0400 Body height 161.3 cm Juani Lisha CHECK TOTALER Work Phone: [facility] 11-16-2021 09:14-0400 Body mass index (BMI) [Ratio] 41.85 kg/m2 Juani Lisha CHECK TOTALER Work Phone: [facility] 11-16-2021 09:14-0400 Body weight 108.86 kg Juani Lisha CHECK TOTALER Work Phone: [facility] 11-16-2021 09:14-0400 Diastolic blood pressure 84 mm[Hg] Juani Lisha CHECK TOTALER Work Phone: [facility] 11-16-2021 09:14-0400 Heart rate 88 /min Juani Lisha CHECK TOTALER Work Phone: [facility] 11-16-2021 09:14-0400 SaO2% (BldA) [Mass fraction] 98 % Juani Lisha CHECK TOTALER Work Phone: [facility] 11-16-2021 09:14-0400 Systolic blood pressure 127 mm[Hg] Juani Lisha CHECK TOTALER Work Phone: [facility] 09-10-2021 13:27-0400 Body mass index (BMI) [Ratio] 43.07 kg/m2 Paridhi Ja CHECK TOTALER Work Phone: [facility] 09-10-2021 13:27-0400 Body temperature 98.49 [degF] Paridhi Ja CHECK TOTALER Work Phone: [facility] 09-10-2021 13:27-0400 Body weight 112.04 kg Paridhi Ja CHECK TOTALER Work Phone: [facility] 09-10-2021 13:27-0400 Diastolic blood pressure 83 mm[Hg] Paridhi Ja CHECK TOTALER Work Phone: [facility] 09-10-2021 13:27-0400 Heart rate 94 /min Paridhi Ja CHECK TOTALER Work Phone: [facility] 09-10-2021 13:27-0400 Respiratory rate 16 /min Paridhi Ja CHECK TOTALER Work Phone: [facility] 09-10-2021 13:27-0400 SaO2% (BldA) [Mass fraction] 97 % Henrry Barahona CHECK TOTALER Work Phone: [facility] 09-10-2021 13:27-0400 Systolic blood pressure 132 mm[Hg] Henrry Barahona CHECK TOTALER Work Phone: [facility] 08-25-2021 09:30-0400 Body height 161.3 cm Juani Lisha CHECK TOTALER Work Phone: [facility] 08-25-2021 09:30-0400 Body mass index (BMI) [Ratio] 41.67 kg/m2 Juani Lisha CHECK TOTALER Work Phone: [facility] 08-25-2021 09:30-0400 Body weight 108.41 kg Juani Lisha CHECK TOTALER Work Phone: [facility] 08-25-2021 09:30-0400 Diastolic blood pressure 72 mm[Hg] Juani Lisha CHECK TOTALER Work Phone: [facility] 08-25-2021 09:30-0400 Heart rate 85 /min Juani Lisha CHECK TOTALER Work Phone: [facility] 08-25-2021 09:30-0400 SaO2% (BldA) [Mass fraction] 97 % Juani Lisha CHECK TOTALER Work Phone: [facility] 08-25-2021 09:30-0400 Systolic blood pressure 106 mm[Hg] Juani Lisha CHECK TOTALER Work Phone: [facility] 06-27-2021 15:36-0400 Body height 161.3 cm Juani Lisha CHECK TOTALER Work Phone: [facility] 06-27-2021 15:36-0400 Body mass index (BMI) [Ratio] 42.2 kg/m2 Juani Lisha CHECK TOTALER Work Phone: [facility] 06-27-2021 15:36-0400 Body weight 109.77 kg Juani Lisha CHECK TOTALER Work Phone: [facility] 06-27-2021 15:36-0400 Diastolic blood pressure 88 mm[Hg] Juani Lisha CHECK TOTALER Work Phone: [facility] 06-27-2021 15:36-0400 Heart rate 88 /min Juani Lisha CHECK TOTALER Work Phone: [facility] 06-27-2021 15:36-0400 SaO2% (BldA) [Mass fraction] 96 % Juani Lisha CHECK TOTALER Work Phone: [facility] 06-27-2021 15:36-0400 Systolic blood pressure 134 mm[Hg] Juani Lisha CHECK TOTALER Work Phone: [facility] 01-20-2020 11:39-0500 BP Diastolic 99 mm[Hg] [place], [place] 01-20-2020 11:39-0500 BP Systolic 146 mm[Hg] [place] 01-20-2020 11:39-0500 Pulse (Heart Rate) 89 /min [place], [place] 01-20-2020 08:32-0500 Body Temperature 97 [degF] [place], [place] 01-20-2020 08:32-0500 Pulse Oximetry 100 % [place] 01-20-2020 08:32-0500 Respiratory Rate 18 /min [place] 01-17-2020 03:20-0500 BMI (Body Mass Index) 40.92 kg/m2 [place] 01-17-2020 03:20-0500 Body weight 108.14 kg [place] 01-14-2020 18:58-0500 Height 162.6 cm [place] 01-13-2019 09:16-0500 BMI (Body Mass Index) 38.19 kg/m2 Sabino Karine [facility] 01-13-2019 09:16-0500 Body Temperature 98.4 [degF] Sabino Milton [facility] 01-13-2019 09:16-0500 Body weight 99.34 kg Sabino Milton [facility] 01-13-2019 09:16-0500 BP Diastolic 88 mm[Hg] Sabino Milton [facility] 01-13-2019 09:16-0500 BP Systolic 127 mm[Hg] Sabino Milton [facility] 01-13-2019 09:16-0500 Height 161.3 cm Sabino Milton [facility] 01-13-2019 09:16-0500 Pulse (Heart Rate) 88 /min Sabino Milton [facility] 01-13-2019 09:16-0500 Pulse Oximetry 98 % Sabino Milton [facility] 01-13-2019 09:16-0500 Respiratory Rate 18 /min Sabino Milton [facility] 09-17-2017 18:28-0400 BMI (Body Mass Index) 36.25 kg/m2 [facility] 09-17-2017 18:28-0400 Body Temperature 98.2 [degF] [facility] 09-17-2017 18:28-0400 BP Diastolic 85 mm[Hg] [facility] 09-17-2017 18:28-0400 BP Systolic 128 mm[Hg] [facility] 09-17-2017 18:28-[address] [facility] 09-17-2017 18:28-0400 Pulse (Heart Rate) 69 /min [facility] 09-17-2017 18:28-0400 Pulse Oximetry 97 % [facility] 09-17-2017 18:28-0400 Respiratory Rate 16 /min [facility] 09-17-2017 18:28-[address] [facility] 05-17-2017 10:05-0500 BMI (Body Mass Index) 38.62 kg/m2 [facility] 05-17-2017 10:05-0500 Body Temperature 98.1 [degF] [facility] 05-17-2017 10:05-0500 BP Diastolic 80 mm[Hg] [facility] 05-17-2017 10:05-0500 BP Systolic 131 mm[Hg] [facility] 05-17-2017 10:05-0500 Height 162.6 cm Juanicourtney Husain [facility] 05-17-2017 10:05-0500 Pulse (Heart Rate) 98 /min Juanicourtney MilesLisha [facility] 05-17-2017 10:05-0500 Pulse Oximetry 98 % Juani Lisha [facility] 05-17-2017 10:05-0500 Respiratory Rate 16 /min Juani Lisha [facility] 05-17-2017 10:05-0500 Weight 102.06 kg [facility] Encounters Encounter Date Encounter Type Care Provider Facility Start: 12-11-2024 ambulatory Marivel Walkerlay Facility :[facility] Start: 09-12-2024 End: 09-12-[address] Marivel Danielson MD Work Phone: -Laboratory Start: 09-12-2024 End: 09-12-[address] Marivel Danielson MD -Laboratory Work Phone: Start: 09-12-2024 End: 09-12-2024 ambulatory Marivel Danielson Facility:[facility] Start: 09-10-2024 End: 09-10-[address] Marivel Danielson MD -[facility] Work Phone: Start: 09-10-2024 End: 09-10-[address] Marivel Danielson MD Work Phone: -[facility] Start: 09-03-2024 End: 09-03-[address] Marivel Danielson MD Work Phone: -Laboratory [place] Start: 09-03-2024 End: 09-03-[address] Crissy Mcneal DO -Laboratory [place] Work Phone: Start: 09-02-2024 End: 09-02-[address] Crissy Mcneal DO -[facility] Work Phone: Start: 09-02-2024 End: 09-03-[address] Marivel Danielson MD Work Phone: [facility] Work Phone: Start: 08-07-2024 End: 08-07-[address] Crissy Mcneal DO -[facility] Work Phone: Start: 08-07-2024 End: 08-07-2024 ambulatory Sidney Jackson 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-C Work Phone: [facility] Work Phone: Start: 07-22-2024 End: 07-22-2024 Emergency department patient visit Sidney Jackson 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-C Work Phone: -Emergency Department Work Phone: Start: 06-02-2024 End: 06-02-2024 Patient encounter procedure Jordan VANG -[facility] Work Phone: Start: 06-02-2024 End: 06-02-2024 ambulatory Jordan VANG Facility:[facility] Start: 04-10-2024 End: 04-10-2024 Patient encounter procedure Jesse VANG -[facility] Work Phone: Start: 04-10-2024 End: 04-10-2024 ambulatory Jesse VANG Facility:[facility] Start: 12-19-2023 End: 12-19-2023 ambulatory Sidney Jackson Facility:[facility] Start: 09-30-2023 End: 09-30-2023 ambulatory MISC DOC [facility] Start: 09-16-2023 End: 09-16-2023 ambulatory MISC DOC [facility] Start: 08-07-2023 Patient encounter status Sidney Jackson 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-C Work Phone: [facility] Start: 08-06-2023 Patient encounter status Sidney Shahidneha 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-C Work Phone: [facility] Start: 07-20-2023 Non-patient / Non-visit No Dorina Logan Physician [facility] Start: 07-19-2023 Non-patient / Non-visit No Dorina Logan Physician [facility] Start: 07-18-2023 End: 07-20-2023 Evaluation and management of inpatient No Primary Care Physician [facility] Work Phone: Start: 07-15-2023 End: 07-15-2023 ambulatory [facility] Start: 07-12-2023 End: 07-12-2023 Patient encounter procedure No Primary Care Physician [facility] Work Phone: Start: 07-08-2023 End: 07-08-2023 ambulatory [facility] Start: 07-04-2023 End: 07-04-2023 ambulatory No Primary Care Physician [facility] Work Phone: Start: 07-04-2023 End: 07-04-2023 Patient encounter procedure No Primary Care Physician [facility]-Laboratory, Specimen Work Phone: Start: 07-04-2023 End: 07-04-2023 Patient encounter procedure No Primary Care Physician [facility] Work Phone: Start: 07-01-2023 End: 07-01-2023 ambulatory [facility] Start: 06-28-2023 End: 06-28-2023 Patient encounter procedure No Primary Care Physician [facility] Work Phone: Start: 06-24-2023 End: 06-24-2023 ambulatory [facility] Start: 06-21-2023 End: 06-21-2023 Patient encounter procedure No Primary Care Physician [facility] Work Phone: Start: 06-18-2023 Non-patient / Non-visit No Dorina bueno [facility] Physician [facility] Start: 06-18-2023 End: 06-18-2023 ambulatory No Primary Care Physician [facility] Work Phone: Start: 06-18-2023 End: 06-18-2023 Patient encounter procedure No Primary Care Physician [facility] Work Phone: Start: 06-17-2023 End: 06-17-2023 ambulatory [facility] Start: 06-14-2023 End: 06-14-2023 ambulatory No Primary Care Physician [facility] Work Phone: Start: 06-14-2023 End: 06-14-2023 Patient encounter procedure No Primary Care Physician [facility]-Laboratory Work Phone: Start: 06-10-2023 End: 06-10-2023 ambulatory [facility] Start: 06-07-2023 End: 06-07-2023 ambulatory No Primary Care Physician [facility] Work Phone: Start: 06-07-2023 End: 06-07-2023 Patient encounter procedure No Primary Care Physician [facility]-Ultrasound, [facility] Work Phone: Start: 06-07-2023 End: 06-07-2023 Patient encounter procedure No Primary Care Physician [facility] Work Phone: Start: 05-31-2023 End: 05-31-2023 Patient encounter procedure No Primary Care Physician [facility] Work Phone: Start: 05-25-2023 Non-patient / Non-visit No [facility] Physician [facility] Start: 05-25-2023 End: 05-25-2023 ambulatory No Primary Care Physician [facility] Work Phone: Start: 05-25-2023 End: 05-25-2023 Patient encounter procedure No Primary Care Physician [facility] Work Phone: Start: 05-24-2023 End: 05-24-2023 ambulatory [facility] Start: 05-17-2023 End: 05-17-2023 Patient encounter procedure No Primary Care Physician [facility] Work Phone: Start: 05-10-2023 End: 05-10-2023 ambulatory No Primary Care Physician [facility] Work Phone: Start: 05-10-2023 End: 05-10-2023 Patient encounter procedure No Primary Care Physician [facility]-Laboratory Work Phone: Start: 05-03-2023 End: 05-03-2023 ambulatory No Primary Care Physician [facility] Work Phone: Start: 05-03-2023 End: 05-03-2023 Patient encounter procedure No Primary Care Physician [facility] Work Phone: Start: 05-03-2023 End: 05-03-2023 ambulatory [facility] Start: 04-05-2023 End: 04-05-2023 Patient encounter procedure No Primary Care Physician [facility] Work Phone: Start: 04-03-2023 End: 04-03-2023 ambulatory [facility] Start: 03-07-2023 End: 03-07-2023 Patient encounter procedure No Primary Care Physician [facility] Work Phone: Start: 03-07-2023 End: 03-07-2023 ambulatory YUDITH F CERDA [facility] Start: 03-06-2023 End: 03-06-2023 Patient encounter procedure No Primary Care Physician [facility] Work Phone: Start: 02-08-2023 End: 02-08-2023 Patient encounter procedure No Primary Care Physician [facility] Work Phone: Start: 01-11-2023 End: 01-11-[address] Valeria Aguilera Work Phone: [facility] Work Phone: Start: 01-11-2023 End: 01-11-[address] Valeria Aguilera Work Phone: [facility] Work Phone: Start: 12-14-2022 End: 12-14-[address] [facility] Work [facility] Start: 12-14-2022 End: 12-14-[address] Valeria Aguilera Work Phone: [facility] Work Phone: Start: 12-13-2022 End: 12-13-[address] Val[facility] Work Phone: Start: 12-13-2022 End: 12-13-[address] Valeria Aguilera Work Phone: [facility] Spec[facility] Work Phone: Start: 12-13-2022 End: 12-13-[address] Valeria Aguilera Work Phone: [facility] Work Phone: Start: 11-30-2022 End: 11-30-[address] Valeria Aguilera [facility] Work Phone: Start: 11-22-2022 End: 11-22-2022 [facility] Start: 11-20-2022 End: 11-20-2022 ambulatory [facility] Work Phone: Start: 11-20-2022 End: 11-20-2022 [facility] Start: 07-24-2022 End: 07-24-2022 ambulatory JUANI HUSAIN [facility] Start: 07-24-2022 End: 07-24-2022 Clinical Support Carolina Aceves MA [facility] Comment on above: Scar (Primary Dx) Start: 07-11-2022 End: 07-11-2022 ambulatory JUANI HUSAIN [facility] Start: 07-11-2022 End: 07-11-2022 Patient encounter procedure Mckenna Suarez DO Work Phone: [facility] Comment on above: Pilar cyst of scalp (Primary Dx); Skin tenderness Start: 06-19-2022 Refill Juani Husain CHECK TOTALER Work Phone: [facility] Start: 05-28-2022 End: 05-28-2022 ambulatory JUANI HUSAIN [facility] Start: 05-28-2022 End: 05-28-2022 Office outpatient new 30 minutes Juani Husain CHECK TOTALER Work Phone: [facility] Comment on above: EIC (epidermal inclu ryann cyst) (Primary Dx); Pilar cyst of scalp Start: 05-04-2022 End: 05-08-2022 ambulatory [facility] Start: 05-04-2022 End: 05-08-2022 Encounter for general adult medical examination without abnormal findings [facility] Start: 04-16-2022 End: 04-20-2022 [facility] Start: 04-16-2022 End: 04-20-2022 Encounter for general adult medical examination without abnormal findings [facility] Start: 04-16-2022 End: 04-16-2022 Patient encounter status Juani Husain CHECK TOTALER Work Phone: [facility] Start: 04-16-2022 End: 04-16-2022 Periodic preventive med est patient 18-39 yrs Juani Husain CHECK TOTALER Work Phone: [facility] Comment on above: Wellness examination (Primary Dx); Scalp cyst; Hypertension, unspecified type Start: 03-15-2022 Refill Juani Hardyling CHECK TOTALER Work Phone: [facility] Comment on above: Hypertension, unspec ified type Start: 11-22-2021 End: 11-26-2021 Orders Only Juani Marcia Milesrling CHECK TOTALER Work Phone: [facility] Comment on above: Suspected UTI (Prima ry Dx) Start: 11-16-2021 End: 11-20-2021 ambulatory [facility] Start: 11-16-2021 End: 11-16-2021 Office outpatient visit 10 minutes Juani Hardyling CHECK TOTALER Work Phone: [facility] Comment on above: Urinary frequency (P rimary Dx); Suspected UTI Start: 09-10-2021 End: 09-10-2021 ambulatory [facility] Start: 09-10-2021 End: 09-10-2021 Office outpatient visit 15 minutes Marielasunday FlowerJa CHECK TOTALER Work Phone: [facility] Comment on above: Abrasion of left cor tana, initial encounter (Primary Dx) Start: 08-25-2021 End: 08-25-2021 ambulatory JUANICourtney PERKINSTH [facility] Start: 08-25-2021 End: 08-25-2021 Office outpatient visit 15 minutes Juani Marcia Milesrling CHECK TOTALER Work Phone: [facility] Comment on above: Uses oral contracept ion (Primary Dx); Hypertension, unspecified type Start: 07-28-2021 Refill Juani Milesrling CHECK TOTALER Work Phone: [facility] Comment on above: Hypertension, unspec ified type Start: 06-28-2021 End: 07-02-2021 ambulatory JUANI HUSAIN [facility] Start: 06-27-2021 End: 06-27-2021 Office outpatient visit 25 minutes Juani Husain CNP Work Phone: [facility] Comment on above: Hypertension, unspec ified type (Primary Dx); Amenorrhea Start: 01-14-2020 End: 01-20-2020 Evaluation and management of inpatient Seven Rodas Work Phone: [facility] Comment on above: S/P primary low gallego sverse (Primary Dx) Start: 01-13-2019 End: 01-13-2019 Office outpatient visit 15 minutes Sabino Erik Milton Work Phone: [facility] Comment on above: Sinusitis, unspecifi ed chronicity, unspecified location (Primary Dx) Start: 01-07-2018 End: 01-07-2018 Emergency department patient visit Amador Addison Facility:[facility] Start: 09-17-2017 End: 09-17-2017 Office outpatient new 30 minutes Samantha Pena Shirley Work Phone: [facility] Start: 05-17-2017 Office/outpatient vi sit, est, level 3 Juani Husain Work Phone: [facility] Procedures Date Procedure Procedure Detail Performing Clinician Start: 09-03-2024 Vitamin D, 25-hydrox y measurement Dr. Marivel Danielson MD Work Phone: Comment on above: Vitamin D StatusDefi ciency: <20 ng/mL (50nmol/L)Insufficiency: 20-30 ng/mL (50-75 nmol/L)Sufficiency: 30-100 ng/mL (75-250 nmol/L)Toxicity: >100 ng/mL (>250 nmol/L) Start: 07-22-2024 Transvaginal echography Sidney MCKENZIE Work Phone: Start: 07-04-2023 Group B Streptococcu s Culture No Primary Care Physician Start: 06-18-2023 Urine culture No Primar y Care Physician Start: 06-07-2023 Ultrasonography for biophysical profile without non-stress testing No Primary Care Physician Start: 05-25-2023 Urine culture No Primar y Care Physician Start: 12-14-[address] Yas Aguilera Work Phone: Start: 12-13-2022 Transvaginal obstetr ic ultrasonography Dr. Valeria Aguilera Work Phone: Start: 12-13-[address] Yas Aguilera Work Phone: Start: 11-30-[address] ic ultrasonography Dr. Valeria Aguilera Work Phone: Start: 03-19-2022 Microscopic observat ion [Identifier] in Cervix by Cyto stain Juani Husain CNP Work Phone: Start: 08-25-2021 Adult depression scr eening assessment Juani Husain CHECK TOTALER Work Phone: Start: 03-02-2020 Microscopic observat ion [Identifier] in Cervix by Cyto stain Juani Husain CHECK TOTALER Work Phone: Start: 01-19-2020 Gluc bld gluc mntr d ev cleared fda spec home use [employer] Work Phone: Start: 01-19-2020 Gluc bld gluc mntr d ev cleared fda spec home use [employer] Work Phone: Start: 01-18-2020 Gluc bld gluc mntr d ev cleared fda spec home use [employer] Work Phone: Start: 01-18-2020 Gluc bld gluc mntr d ev cleared fda spec home use [employer] Work Phone: Start: 01-18-2020 Gluc bld gluc mntr d ev cleared fda spec home use [employer] Work Phone: Start: 01-18-2020 Blood count hemoglobin Joce Adler Work Phone: Start: 01-17-2020 Blood count complete automated Joce Adler Work Phone: Start: 01-17-2020 Comprehensive metabo lic panel Joce Adler Work Phone: Start: 01-17-2020 Blood typing serologic abo [employer] Work Phone: Start: 01-16-2020 Gluc bld gluc mntr d ev cleared fda spec home use [employer] Work Phone: Start: 01-16-2020 Gluc bld gluc mntr d ev cleared fda spec home use [employer] Work Phone: Start: 01-16-2020 Gluc bld gluc mntr d ev cleared fda spec home use [employer] Work Phone: Start: 01-16-2020 Gluc bld gluc mntr d ev cleared fda spec home use [employer] Work Phone: Start: 01-15-2020 Gluc bld gluc mntr d ev cleared fda spec home use [employer] Work Phone: Start: 01-15-2020 Gluc bld gluc mntr d ev cleared fda spec home use [employer] Work Phone: Start: 01-15-2020 US LIMITED Al mylene Palmer Work Phone: Start: 01-15-2020 Gluc bld gluc mntr d ev cleared fda spec home use [employer] Work Phone: Start: 01-15-2020 Blood count complete auto&auto difrntl wbc Karlos Varela Work Phone: Start: 01-15-2020 Comprehensive metabo lic panel Karlos Varela Work Phone: Start: 01-14-2020 Gluc bld gluc mntr d ev cleared fda spec home use [employer] Work Phone: Start: 01-14-2020 Culture bacterial quanttative colony count urine Jayda Amezcua Work Phone: Start: 01-14-2020 Susceptiblty stdy antimicrbial micro/agar dilutj Jayda Amezcua Work Phone: Start: 01-14-2020 Blood typing serologic abo Karlos Varela Work Phone: Start: 01-14-2020 Blood count complete automated Ally Fajardoi Work Phone: Start: 01-14-2020 Comprehensive metabo lic panel Ally Craigski Work Phone: Start: 01-14-2020 Creatinine other source Ally Fajardoi Work Phone: Start: 01-14-2020 PROTEIN, URINE Ally Fajardoi Work Phone: Start: 02-21-2016 Microscopic observat ion [Identifier] in Cervix by Cyto stain Sabino Milton H/O: section History of C-sectio n No Primary Care Physician Comment on above: Jan 2020, plan RLTCS at 38 weeks, 5/9 @ 12 with Jan 2020, plan RLTCS at 38 weeks, 59 @ 12 with 07/18/2023 Plan of Treatment Date Care Activity Detail Author Start: 11-08-2029 Tetanus vaccination Tetanus: Every 1 0yrs [facility] Start: 05-16-2026 Tetanus vaccination TETANUS EVERY 10 YR [facility] Start: 03-19-2025 Screening for malign ant neoplasm of cervix Pap Smear [facility] Start: 07-22-2024 [facility] Start: 07-20-2023 Patient discharge [facility] Start: 07-19-2023 [facility] Start: 07-19-2023 Application of abdom inal corset [facility] Start: 07-19-2023 Consultation [facility] Start: 07-18-2023 End: 07-18-2023 [facility] Start: 07-18-2023 End: 07-18-2023 Notification of physician [facility] Start: 07-18-2023 Vital signs measurements [facility] Start: 07-18-2023 Application of intermittent pneumatic compression device [facility] Start: 07-18-2023 Administration of medication [facility] Start: 07-18-2023 Ambulation therapy management [facility] Start: 07-18-2023 Application of device [facility] Start: 07-18-2023 Application of ice collar, cap or bag [facility] Start: 07-18-2023 Application of intermittent pneumatic compression device [facility] Start: 07-18-2023 Assessment of risk o f venous thromboembolism [facility] Start: 07-18-2023 Catheterization of vein [facility] Start: 07-18-2023 Deep breathing and coughing exercises [facility] Start: 07-18-2023 Exercises [facility] Start: 07-18-2023 Introduction of urin tong catheter [facility] Start: 07-18-2023 Measuring intake and output [facility] Start: 07-18-2023 Notification of physician [facility] Start: 07-18-2023 Procedure discontinued [facility] Start: 07-18-2023 Provision of activit y privileges [facility] Start: 07-18-2023 Skin care [facility] Start: 07-18-2023 Vital signs measurements [facility] Start: 07-18-2023 Wound care [facility] Start: 07-18-2023 End: 07-18-2023 [facility] Start: 07-18-2023 Application of abdom inal corset [facility] Start: 07-18-2023 Documentation procedure [facility] Start: 07-18-2023 section Repeat C-Sect ion Bilateral Salpingectomy (Bilateral) [facility] Start: 07-18-2023 Verification routine [facility] Start: 07-18-2023 Admission procedure [facility] Start: 06-18-2023 [facility] Start: 06-18-2023 Nonstress test [facility] Start: 06-18-2023 Following clinical pathway protocol [facility] Start: 06-18-2023 End: 06-18-2023 [facility] Start: 06-18-2023 Obstetric monitoring [facility] Start: 06-18-2023 Vital signs measurements [facility] Start: 06-18-2023 Bacteria identified in Urine by Culture [facility] Start: 06-18-2023 Iv infusion hydratio n each additional hour HYDRATE IV INFUSION ADD-ON [facility] Start: 06-18-2023 Ther proph/dx njx iv push single/1st sbst/drug THER/PROPH/DIAG INJ IV PUSH [facility] Start: 06-18-2023 Patient discharge [facility] Start: 05-25-2023 [facility] Start: 05-25-2023 Nonstress test [facility] Start: 05-25-2023 Obstetric monitoring [facility] Start: 05-25-2023 Vital signs measurements [facility] Start: 05-25-2023 [facility] Start: 05-25-2023 Bacteria identified in Urine by Culture [facility] Start: 05-25-2023 Patient discharge [facility] Start: 04-16-2023 History and physical examination, annual for health maintenance Wellness Visit [facility] Start: 03-02-2023 Screening for malign ant neoplasm of cervix Pap Smear [facility] Start: 08-25-2022 COVID-19 Vaccine (3 - Booster for Pfizer series) COVID-19 Vaccine (3 - Booster for Pfizer series) [facility] Comment on above: Postponed from 05/04 (Patient Refused) Postponed from 01/27 (Patient Refused) Start: 08-25-2022 Depression screening using PHQ-9 (Patient Health Questionnaire 9) score Depression Screening (PHQ-2/9) [facility] Start: 08-25-2022 Hepatitis C screening Hepatitis C Sc [facility] Comment on above: Postponed from 09/23 (Patient Refused) Start: 08-25-2022 HIV screening HIV Screening [facility] Comment on above: Postponed from 09/23 (Patient Refused) Start: 07-24-2022 End: 07-24-2022 Patient encounter procedure 07/24/2022 10:10 AM EDT Office Visit [facility] [address] [place] [address] Mckenna Suarez Jr., DO [address] [place] [address] [facility] Start: 07-12-2022 End: 10-11-2022 Procedure on tissue specimen Tissue Exam Pathology and Cytology Routine Pilar cyst of scalp Skin tenderness Expected: 07/12/2022, Expires: 10/11/2022 [facility] Work Phone: Comment on above: Expected: 07/12/2022 , Expires: 10/11/2022 Start: 07-11-2022 End: 07-11-2022 Patient encounter procedure [facility] Start: 05-29-2022 End: 05-29-2022 Patient encounter procedure 05/29/2022 Office Visit Dermatology Mckenna Suarez Jr., [address] [address] [facility] Start: 03-01-2022 History and physical examination, annual for health maintenance Wellness Visit [facility] Start: 11-09-2021 Influenza vaccination [facility] Start: 05-04-2021 COVID-19 Vaccine (3 - Booster for Pfizer series) COVID-19 Vaccine (3 - Booster for Pfizer series) [facility] Start: 11-10-2019 Influenza vaccination Flu vaccine (# 1) [place], [place] Start: 06-05-2019 History and physical examination, annual for health maintenance Wellness Visit [facility] Start: 02-20-2019 Screening for malign ant neoplasm of cervix PAP SMEAR [facility] Start: 11-09-2018 Influenza vaccinatio n given SEQUENTIAL INFLUENZA VACCINE (#1) [facility] Start: 11-09-2017 Influenza vaccination SEQUENTI AL INFLUENZA VACCINE (#1) [facility] Start: 11-09-2016 Influenza vaccination SEQUENTI AL INFLUENZA VACCINE (#1) [facility] Start: 09-23-2009 Hepatitis C screening Hepatitis C Sc reening [facility] Start: 09-23-2006 HIV screening HIV Screening [facility] Start: 2003 Depression screening using PHQ-9 (Patient Health Questionnaire 9) score Depression Screening (PHQ-2/9) [facility] Start: 09-23-2002 Vaccination for conrado n papillomavirus HPV VACCINES (1 of 3 - Female 3 Dose Series) [facility] Start: 09-23-1994 History and physical examination, annual for health maintenance Wellness Visit [facility] Start: 1991 Depression screening using PHQ-9 (Patient Health Questionnaire 9) score DEPRESSION SCREENING (PHQ9) [facility] End: 11-16-2022 Bacteria identified in Unspecified specimen by Aerobe culture Urine Aerobic Culture Microbiology Routine Urinary frequency 1 Occurrences starting 11/16/2021 until 11/16/2022 [facility] Work Phone: Comment on above: 1 Occurrences starti ng 11/16/2021 until 11/16/2022 Bacteria identified in Unspecified specimen by Aerobe culture Urine Aerobic Culture Microbiology Routine Urinary frequency 11/16/2021 9:53 AM EDT [facility] End: 11-22-2022 Bacteria identified in Unspecified specimen by Aerobe culture Urine Aerobic Culture Microbiology Routine Suspected UTI 1 Occurrences starting 11/22/2021 until 11/22/2022 [facility] Comment on above: 1 Occurrences starti ng 11/22/2021 until 11/22/2022 Bacteria identified in Unspecified specimen by Aerobe culture Urine Aerobic Culture Microbiology Routine Suspected UTI 11/22/2021 11:49 AM EDT [facility] CBC W Auto Different ial panel - Blood [facility] Chlamydia/Gonorrhoea e Amplified RNA Chlamydia/Gonorrhoeae Amplified RNA Routine Acute vaginitis Ordered: 09/17/2017 [facility] End: 04-16-2023 Cobalamin (Vitamin B12) [Mass/volume] in Serum or Plasma Vitamin B12 Lab Routine Hypertension, unspecified type Wellness examination 1 Occurrences starting 04/16/2022 until 04/16/2023 [facility] Comment on above: 1 Occurrences starti ng 04/16/2022 until 04/16/2023 End: 04-17-2023 Complete blood count with white cell differential, manual CBC and Differential Lab Routine Hypertension, unspecified type Wellness examination 1 Occurrences starting 04/16/2022 until 04/17/2023 [facility] Work Phone: Comment on above: 1 Occurrences starti ng 04/16/2022 until 04/17/2023 End: 04-17-2023 Comprehensive metabolic 2000 panel - Serum or Plasma Comprehensive Metabolic Panel Lab Routine Hypertension, unspecified type Wellness examination 1 Occurrences starting 04/16/2022 until 04/17/2023 [facility] Comment on above: 1 Occurrences starti ng 04/16/2022 until 04/17/2023 Comprehensive metabo lic 1999 panel - Serum or Plasma [facility] Comprehensive metabo lic 1999 panel - Serum or Plasma [facility] Cortisol [Mass/volum e] in Serum or Plasma [facility] Genital Aerobic Culture Genital Aerobic Culture Routine Acute vaginitis Ordered: 09/17/2017 [facility] Glucose [Mass/volume ] in Serum or Plasma [facility] End: 04-17-2023 Hemoglobin A1c/Hemoglobin.total in Blood Hemoglobin A1c Lab Routine Hypertension, unspecified type Wellness examination 1 Occurrences starting 04/16/2022 until 04/17/2023 [facility] Comment on above: 1 Occurrences starti ng 04/16/2022 until 04/17/2023 Hemoglobin A1c/Hemoglobin.total in Blood [facility] End: 04-16-2023 Insulin [Units/volume] in Serum or Plasma Insulin, Total Lab Routine Hypertension, unspecified type Wellness examination 1 Occurrences starting 04/16/2022 until 04/16/2023 [facility] Comment on above: 1 Occurrences starti ng 04/16/2022 until 04/16/2023 End: 04-17-2023 Lipid 1996 panel - Serum or Plasma Lipid Panel Lab Routine Hypertension, unspecified type Wellness examination 1 Occurrences starting 04/16/2022 until 04/17/2023 [facility] Comment on above: 1 Occurrences starti ng 04/16/2022 until 04/17/2023 Lipid 1996 panel - S abbi or Plasma [facility] Lipid 1996 panel - S abbi or Plasma [facility] End: 04-16-2023 Microalbumin measurement, urine, quantitative Microalbumin/Creatinine Ratio, UR Random Lab Routine Hypertension, unspecified type Wellness examination 1 Occurrences starting 04/16/2022 until 04/16/2023 [facility] Comment on above: 1 Occurrences starti ng 04/16/2022 until 04/16/2023 Oxygen therapy [[facility] Data Set] Initiate Oxygen Therapy Protocol Respiratory Care Routine Daily until discontinued starting 01/17/2020 [facility], [place] Comment on above: Daily until disconti nued starting 01/17/2020 Patient Education [facility] Work Phone: Patient referral [facility] Work Phone: Protein/Creatinine [Ratio] in Urine [facility] Spirometry panel Incentive wesley metry Respiratory Care Routine Every 2hr while awake until discontinued starting 01/17/2020 [facility], [place] Comment on above: Every 2hr while awak e until discontinued starting 01/17/2020 Thyroid stimulating hormone measurement [facility] Thyroid stimulating hormone measurement [facility] End: 04-17-2023 Thyrotropin [Units/volume] in Serum or Plasma TSH Lab Routine Hypertension, unspecified type Wellness examination 1 Occurrences starting 04/16/2022 until 04/17/2023 [facility] Comment on above: 1 Occurrences starti ng 04/16/2022 until 04/17/2023 End: 04-17-2023 Thyroxine (T4) free [Mass/volume] in Serum or Plasma T4, Free Lab Routine Hypertension, unspecified type Wellness examination 1 Occurrences starting 04/16/2022 until 04/17/2023 [facility] Comment on above: 1 Occurrences starti ng 04/16/2022 until 04/17/2023 End: 11-22-2022 Urinalysis Urinalysis Lab Routine Suspected UTI 1 Occurrences starting 11/22/2021 until 11/22/2022 [facility] Work Phone: Comment on above: 1 Occurrences starti ng 11/22/2021 until 11/22/2022 Urinalysis Urinalysis Lab R outine Suspected UTI 11/22/2021 11:49 AM EDT [facility] End: 04-16-2023 Vitamin D, 25-hydroxy measurement Vitamin D, Total, 25-OH Lab Routine Hypertension, unspecified type Wellness examination 1 Occurrences starting 04/16/2022 until 04/16/2023 [facility] Comment on above: 1 Occurrences starti ng 04/16/2022 until 04/16/2023 Vitamin D, 25-hydrox y measurement [facility] Immunizations Immunization Date Immunization Notes Care Provider Veena ellison 11-22-2023 influenza, injectabl e, quadrivalent, preservative free Sidney MCKENZIE Work Phone: [facility] 05-17-2023 tetanus toxoid, redu lydia diphtheria toxoid, and acellular pertussis vaccine, adsorbed No Primary Care Physician [facility] 01-11-2023 influenza, injectabl e, quadrivalent, preservative free Dr. Valeria Aguilera Work Phone: [facility] 04-16-2022 Seasonal, quadrivale nt, recombinant, injectable influenza vaccine, preservative free Junai Lisha CHECK TOTALER Work Phone: [facility] 04-16-2022 flu vac qv 2021,19yr up,rcm-PF (FLUBLOK QUAD) syringe Juani Lisha CHECK TOTALER Work Phone: [facility] 01-06-2021 Influenza, injectabl e, Madin Nicole Canine Kidney, preservative free, quadrivalent Juani Lisha CHECK TOTALER Work Phone: [facility] 12-02-2020 Covid (Pfizer) Dr. Marivel Danielson MD Work Phone: [facility] 11-11-2020 Covid (Pfizer) Dr. Marivel Danielson MD Work Phone: [facility] 01-17-2020 diphtheria, tetanus toxoids and acellular pertussis vaccine, unspecified formulation [facility] , [place] 01-17-2020 measles, mumps and rubella virus vaccine [facility], [place] 12-03-2019 Influenza, injectabl e, Madin [place] Canine Kidney, quadrivalent with preservative Juani Lisha CHECK TOTALER Work Phone: [facility] 12-03-2019 influenza, injectable,quadrivalent , preservative free, pediatric [facility] 12-03-2019 influenza, seasonal, injectable, preservative free Juani Lisha CHECK TOTALER Work Phone: [facility] 11-09-2019 diphtheria, tetanus toxoids and acellular pertussis vaccine Juani Lisha CHECK TOTALER Work Phone: [facility] 11-09-2019 diphtheria, tetanus toxoids and acellular pertussis vaccine, unspecified formulation Juani Lisha CHECK TOTALER Work Phone: [facility] 11-09-2019 tetanus toxoid, redu lydia diphtheria toxoid, and acellular pertussis vaccine, adsorbed Juani Lisha CHECK TOTALER Work Phone: [facility] 03-18-2019 Influenza, injectabl e, Madin [place] Canine Kidney, quadrivalent with preservative Juani Lisha CHECK TOTALER Work Phone: [facility] 03-18-2019 Influenza, injectabl e, Madin [place] Canine Kidney, preservative free, quadrivalent Dr. Marviel Danielson MD Work Phone: [facility] 05-16-2016 tetanus toxoid, redu lydia diphtheria toxoid, and acellular pertussis vaccine, adsorbed; Translations: [TDAP] Juani Lisha [facility] 03-16-2012 influenza, injectabl e, quadrivalent, preservative free Dr. Marivel Danielson MD Work Phone: [facility] 03-16-2012 influenza, seasonal, injectable Juani Lisha CHECK TOTALER Work Phone: [facility] 12-04-2008 influenza, injectabl e, quadrivalent, preservative free Dr. Marivel Danielson MD Work Phone: [facility] 12-04-2008 influenza, seasonal, injectable Juani Lisha CHECK TOTALER Work Phone: [facility] 12-04-2008 influenza, seasonal, intradermal, preservative free Juani Lisha [facility] 10-18-2008 hepatitis A vaccine, pediatric/adolescent dosage, 2 dose schedule Juani Lisha [facility] 10-18-2008 hepatitis A vaccine, unspecified formulation Juani Lisha CHECK TOTALER Work Phone: [facility] 10-18-2008 tetanus toxoid, redu lydia diphtheria toxoid, and acellular pertussis vaccine, adsorbed Juani Lisha [facility] 12-30-2007 influenza, injectabl e, quadrivalent, preservative free Dr. Marivel Danielson MD Work Phone: [facility] 12-30-2007 influenza, seasonal, injectable Juani Lisha CHECK TOTALER Work Phone: [facility] 01-11-2007 influenza, injectabl e, quadrivalent, preservative free Dr. Marivel Danielson MD Work Phone: [facility] 01-11-2007 influenza, seasonal, injectable Juani Lisha [facility] Work Phone: [facility] 10-07-2006 meningococcal polysaccharide (groups A, C, Y and W-135) diphtheria toxoid conjugate vaccine (MCV4P) [facility] meningococcal polysaccharide vaccine (MPSV4) [facility] Work Phone: [facility] 10-07-2006 Meningococcal, MCV4, unspecified conjugate formulation(groups A, C, Y and W-135) [facility] Work Phone: [facility] 01-21-2006 influenza, injectabl e, quadrivalent, preservative free Dr. Marivel Danielson MD Work Phone: [facility] 01-21-2006 influenza, seasonal, injectable Juani Lisha CNP Work Phone: [facility] 11-06-2003 measles, mumps and rubella virus vaccine Juani Lisha CNP Work Phone: [facility] 10-12-2003 measles, mumps and rubella virus vaccine [facility] 10-12-2003 tetanus and diphther ia toxoids, adsorbed, for adult use [facility] 10-12-2003 tetanus toxoid, adsorbed Juani Lisha [facility] Work Phone: [facility] 10-12-2003 tetanus toxoid, redu lydia diphtheria toxoid, and acellular pertussis vaccine, adsorbed Juani Lisha CNP Work Phone: [facility] 10-19-1996 diphtheria, tetanus toxoids and acellular pertussis vaccine, unspecified formulation Juani Lisha CNP Work Phone: [facility] 10-19-1996 [facility]P [facility] 10-19-1996 poliovirus vaccine, inactivated [facility] 09-18-1996 diphtheria, tetanus toxoids and acellular pertussis vaccine Dr. Marivel Danielson MD Work Phone: [facility] 09-18-1996 diphtheria, tetanus toxoids and acellular pertussis vaccine, unspecified formulation Juani Lisha CHECK TOTALER Work Phone: [facility] 09-18-1996 poliovirus vaccine, inactivated Dr. Marivel Danielson MD Work Phone: [facility] 09-18-1996 poliovirus vaccine, unspecified formulation Juani Lisha CHECK TOTALER Work Phone: [facility] 05-01-1994 hepatitis B vaccine, pediatric or pediatric/adolescent dosage Juani Lisha [facility] 11-24-1993 hepatitis B vaccine, pediatric or pediatric/adolescent dosage Juani Lisha [facility] 11-23-1993 hepatitis B vaccine, pediatric or pediatric/adolescent dosage Dr. Marivel Danielson MD Work Phone: [facility] 10-20-1993 hepatitis B vaccine, pediatric or pediatric/adolescent dosage Juani Lisha [facility] 04-03-1993 diphtheria, tetanus toxoids and acellular pertussis vaccine Dr. Marivel Danielson MD Work Phone: [facility] 04-03-1993 diphtheria, tetanus toxoids and acellular pertussis vaccine, unspecified formulation Juani Lisha CHECK TOTALER Work Phone: [facility] 04-03-1993 haemophilus influenz ae type b vaccine, conjugate unspecified formulation Juani Lisha [facility] 04-03-1993 haemophilus influenz ae type b vaccine, PRP-T conjugate Dr. Marivel Danielson MD Work Phone: [facility] 04-03-1993 measles, mumps and rubella virus vaccine Juani Lisha CHECK TOTALER Work Phone: [facility] 04-03-1993 poliovirus vaccine, inactivated Dr. Marivel Danielson MD Work Phone: [facility] 04-03-1993 poliovirus vaccine, unspecified formulation Juani Lisha CHECK TOTALER Work Phone: [facility] 03-23-1992 diphtheria, tetanus toxoids and acellular pertussis vaccine Dr. Marivel Danielson MD Work Phone: [facility] 03-23-1992 diphtheria, tetanus toxoids and acellular pertussis vaccine, unspecified formulation Juani Lisha CHECK TOTALER Work Phone: [facility] 03-23-1992 haemophilus influenz ae type b vaccine, conjugate unspecified formulation Juani Lisha CHECK TOTALER Work Phone: [facility] 03-23-1992 haemophilus influenz ae type b vaccine, PRP-T conjugate Dr. Marivel Danielson MD Work Phone: [facility] 01-20-1992 diphtheria, tetanus toxoids and acellular pertussis vaccine Dr. Marivel Danielson MD Work Phone: [facility] 01-20-1992 diphtheria, tetanus toxoids and acellular pertussis vaccine, unspecified formulation Juani Lisha CHECK TOTALER Work Phone: [facility] 01-20-1992 haemophilus influenz ae type b vaccine, conjugate unspecified formulation Juani Lisha CHECK TOTALER Work Phone: [facility] 01-20-1992 haemophilus influenz ae type b vaccine, PRP-T conjugate Dr. Marivel Danielson MD Work Phone: [facility] 01-20-1992 poliovirus vaccine, inactivated Dr. Marivel Danielson MD Work Phone: [facility] 01-20-1992 poliovirus vaccine, unspecified formulation Juani Lisha CHECK TOTALER Work Phone: [facility] 1991 diphtheria, tetanus toxoids and acellular pertussis vaccine Dr. Marivel Danielson MD Work Phone: [facility] 1991 diphtheria, tetanus toxoids and acellular pertussis vaccine, unspecified formulation Juani Lisha CHECK TOTALER Work Phone: [facility] 1991 haemophilus influenz ae type b vaccine, conjugate unspecified formulation Juani Lisha CHECK TOTALER Work Phone: [facility] 1991 haemophilus influenz ae type b vaccine, PRP-T conjugate Dr. Marivel Danielson MD Work Phone: [facility] 1991 poliovirus vaccine, inactivated Dr. Marivel Danielson MD Work Phone: [facility] 1991 poliovirus vaccine, unspecified formulation Juani Husain CNP Work Phone: [facility] NEGATED: Highlighted row has not occurred!01-20-2020 measles, mumps and rubella virus vaccine [place], [place] Comment on above: Deferred: - rubella immune NEGATED: Highlighted row has not occurred!01-20-2020 tetanus toxoid, reduced diphtheria toxoid, and acellular pertussis vaccine, adsorbed [place], [place] Comment on above: Deferred: - had duri ng NEGATED: Highlighted row has not occurred!01-19-2020 measles, mumps and rubella virus vaccine [place] NEGATED: Highlighted row has not occurred!01-19-2020 tetanus toxoid, reduced diphtheria toxoid, and acellular pertussis vaccine, adsorbed [place], [place] Payers Date Payer Category Payer Unknown [employer] PPO [id number] 2020-Present [phone] [address] [place] [address] [id number] 2020 Unknown [id number] 2019 Private Health Insurance [facility] [id number] 2019-Present [phone] [address] [place] [address] [id number] 2018 Unknown [place] LEMOS/MITCHEL/HMO/PPO xxxxxxxxxxxx 2018-Present [id number] 2018 Private Health Insurance [id number] 2018 Self-pay 1990 Unknown [id number] 2.16.840.1.318993.3.579.2 .1991 Unknown [id number] 2.16.840.1.970630.3.579.2 .1991 Unknown [id number] 2.16.840.1.328895.3.579.2 .1991 Unknown [id number] 2.16.840.1.847927.3.579.2 .1991 Unknown [id number] 2.16840.1.389437.3.579.2 1991 Unknown [id number] 2.16.840.1.321309.3.579.2 1991 Unknown [id number] 2.840.1.789312.3.579.2 1991 Unknown [id number] 2.840.1.364605.3.579.2 1991 Unknown [id number] 2.840.1.271238.3.579.2 1991 Unknown [id number] 2.16.840.1.939803.3.579.2 .1991 Unknown [id number] 2840.1.498188.3.579.2 .1991 Unknown [id number] 2.16840.1.311372.3.579.2 1991 Unknown [id number] 2.16840.1.751254.3.579.2 1991 Unknown [id number] 2.16840.1.908563.3.579.2 1991 Unknown [id number] 2.16840.1.561815.3.579.2 1991 Unknown [id number] 2.840.1.080148.3.579.2 .479 1991 Unknown [id number] 840.1.161797.3.579.2 47 1991 Unknown [id number] .840.1.383635.3.579.2 .47 1991 Unknown [id number] 04.26.830.1.954069.3.579.2 47 1991 Unknown [id number] 840.1.068981.3.579.2 .47 1991 Unknown [id number] .1.401339.3.579.2 1991 Unknown [id number] 840.1.228284.3.579.2 1991 Unknown [id number] 04.26.830.1.468487.3.579.2 1991 Unknown [id number] .1.866801.3.579.2 47 1991 Unknown [id number] 04.26.830.1.857444.3.579.2 .479 Unknown [id number] 04.26.830.1.485476.3.249.1 3 Unknown [id number] 04.26.830.1.273890.3.579.2 .373 Unknown [id number] 840.1.995309.3.579.2 .462 Unknown [id number] 840.1.876016.3.579.2 .462 Unknown [id number] 840.1.597622.3.579.2 .462 Unknown [id number] 840.1.421281.3.579.2 .462 Unknown [id number] 840.1.946266.3.579.2 .462 Unknown [id number] 2.840.1.590639.3.579.2 .462 Unknown [id number] 2.16840.1.981622.3.579.2 .462 Unknown [id number] 2.16840.1.281720.3.579.2 .462 Unknown [id number] 2.16840.1.895615.3.579.2 .462 Unknown [id number] 2.840.1.367441.3.579.2 .462 Social History Date Type Detail Facility Start: 05-17-2017 End: 09-10-2024 Tobacco smoking status HIIS Never smoker [facility] Start: 1990 Sex Assigned At Not on file O [facility] Start: 01-13-2019 Alcohol intake Current drinke r of alcohol (finding) [facility] Start: 07-07-2015 Alcohol Comment socially [facility] Start: 01-19-2020 End: 06-27-2021 Tobacco use and exposure [facility] [place] Start: 01-19-2020 End: 04-16-2022 Alcohol intake [facility] (finding[facility] [place] Start: 06-17-2021 End: 07-23-2022 Exposure to SARS-CoV-2 (event) Not sure [place], [place] Start: 06-27-2021 End: 11-16-2021 Cigarette pack-years [facility] Start: 11-16-2021 History SDOH Alcohol Frequency 1 [facility] Start: 11-16-2021 History SDOH Alcohol Std Drinks 0 [facility] Start: 11-16-2021 History SDOH Social Connections Phone 5 [facility] Start: 11-16-2021 History SDOH Social Connections [facility] 3 [facility] Start: 11-16-2021 History SDOH Social Connections Meetings 2 [facility] Start: 11-16-2021 History SDOH Financial 4 [facility] Start: 08-25-2021 End: 11-16-2021 Humiliation, Afraid, Rape, and Kick questionnaire [HARK] [facility] Within the last year , have you been afraid of your partner or ex-partner? No [facility] Do you belong to any clubs or organizations such as hindu groups, unions, fraternal or athletic groups, or school groups? Yes [facility] Are you now , , , , never or living with a partner? [facility] How often to you hav e a drink containing alcohol? Never [facility] How many standard drinks containing alcohol do you have on a [...] [OSQ] Only a little [facility] (I/We) worried wheth er (my/our) food would run out before (I/we) got money to buy more. Never true [facility] Start: 03-01-2021 End: 07-18-2023 Tobacco smoking status NHIS Unknown if ever smoked [facility] Start: 1990 Sex Assigned At Female W [facility] Sexual Orientation Heterosexual (finding) [facility] NEGATED: Highlighted row Not [facility] Medical Equipment Procedure Code Equipment Code Equipment Origin al Text Equipment Identifier Dates Blood Sugar Diagnostic (Truetrack Test) strip Start: 11-12-2019 End: 02-02-2020 Blood Sugar Diagnostic (Truetrack Test) strip Start: 11-12-2019 End: 02-02-2020 Pen Needle, Diab etic (Bd Ultra-Fine Sophia Pen Needle) 32 gauge x 5/32 needle Start: 04-16-2023 Blood Sugar Diagnostic (Truetrack Test) strip Start: 11-12-2019 End: 02-02-2020 Pen Needle, Diab etic (Bd Ultra-Fine Sophia Pen Needle) 32 gauge x 5/32 needle Start: 04-16-2023 Blood Sugar Diagnostic (Truetrack Test) strip Start: 11-12-2019 End: 02-02-2020 Pen Needle, Diab etic (Bd Ultra-Fine Sophia Pen Needle) 32 gauge x 5/32 needle Start: 04-16-2023 Blood Sugar Diagnostic (Truetrack Test) strip Start: 11-12-2019 End: 02-02-2020 Blood Sugar Diagnostic (Onetouch Verio Test Strips) strip Start: 05-30-2023 Lancets (Onetouc h Delica Plus Lancet) 33 gauge misc Start: 05-30-2023 Pen Needle, Diab etic (Bd Ultra-Fine Sophai Pen Needle) 32 gauge x 5/32 needle Start: 04-16-2023 Blood Sugar Diagnostic (Truetrack Test) strip Start: 11-12-2019 End: 02-02-2020 Blood Sugar Diagnostic (Onetouch Verio Test Strips) strip Start: 05-30-2023 Lancets (Onetouc h Delica Plus Lancet) 33 gauge misc Start: 05-30-2023 Pen Needle, Diab etic (Bd Ultra-Fine Sophia Pen Needle) 32 gauge x 5/32 needle Start: 04-16-2023 Blood Sugar Diagnostic (Truetrack Test) strip Start: 11-12-2019 End: 02-02-2020 Blood Sugar Diagnostic (Onetouch Verio Test Strips) strip Start: 05-30-2023 Lancets (Onetouc h Delica Plus Lancet) 33 gauge misc Start: 05-30-2023 Pen Needle, Diab etic (Bd Ultra-Fine Sophia Pen Needle) 32 gauge x 5/32 needle Start: 04-16-2023 Blood Sugar Diagnostic (Truetrack Test) strip Start: 11-12-2019 End: 02-02-2020 Blood Sugar Diagnostic (Onetouch Verio Test Strips) strip Start: 05-30-2023 Lancets (Onetouc h Delica Plus Lancet) 33 gauge misc Start: 05-30-2023 Pen Needle, Diab etic (Bd Ultra-Fine Sophia Pen Needle) 32 gauge x 5/32 needle Start: 04-16-2023 Blood Sugar Diagnostic (Truetrack Test) strip Start: 11-12-2019 End: 02-02-2020 Blood Sugar Diagnostic (Onetouch Verio Test Strips) strip Start: 05-30-2023 Lancets (Onetouc h Delica Plus Lancet) 33 gauge misc Start: 05-30-2023 Pen Needle, Diab etic (Bd Ultra-Fine Sophia Pen Needle) 32 gauge x 5/32 needle Start: 04-16-2023 Blood Sugar Diagnostic (Truetrack Test) strip Start: 11-12-2019 End: 02-02-2020 Blood Sugar Diagnostic (Onetouch Verio Test Strips) strip Start: 05-30-2023 End: 08-01-2023 Blood Sugar Diagnostic (Truetrack Test) strip Start: 11-12-2019 End: 02-02-2020 Lancets (Onetouc h Delica Plus Lancet) 33 gauge misc Start: 05-30-2023 End: 08-01-2023 Pen Needle, Diab etic (Bd Ultra-Fine Sophia Pen Needle) 32 gauge x 5/32 needle Start: 04-16-2023 End: 08-01-2023 Blood Sugar Diagnostic (Onetouch Verio Test Strips) strip Start: 05-30-2023 End: 08-01-2023 Blood Sugar Diagnostic (Truetrack Test) strip Start: 11-12-2019 End: 02-02-2020 Lancets (Onetouc h Delica Plus Lancet) 33 gauge misc Start: 05-30-2023 End: 08-01-2023 Pen Needle, Diab etic (Bd Ultra-Fine Sophia Pen Needle) 32 gauge x 5/32 needle Start: 04-16-2023 End: 08-01-2023 Blood Sugar Diagnostic (Onetouch Verio Test Strips) strip Start: 05-30-2023 End: 08-01-2023 Blood Sugar Diagnostic (Truetrack Test) strip Start: 11-12-2019 End: 02-02-2020 Lancets (Onetouc h Delica Plus Lancet) 33 gauge misc Start: 05-30-2023 End: 08-01-2023 Pen Needle, Diab etic (Bd Ultra-Fine Sophia Pen Needle) 32 gauge x 5/32 needle Start: 04-16-2023 End: 08-01-2023 Blood Sugar Diagnostic (Onetouch Verio Test Strips) strip Start: 05-30-2023 End: 08-01-2023 Blood Sugar Diagnostic (Truetrack Test) strip Start: 11-12-2019 End: 02-02-2020 Lancets (Onetouc h Delica Plus Lancet) 33 gauge misc Start: 05-30-2023 End: 08-01-2023 Pen Needle, Diab etic (Bd Ultra-Fine Sophia Pen Needle) 32 gauge x 5/32 needle Start: 04-16-2023 End: 08-01-2023 Blood Sugar Diagnostic (Onetouch Verio Test Strips) strip Start: 05-30-2023 End: 08-01-2023 Blood Sugar Diagnostic (Truetrack Test) strip Start: 11-12-2019 End: 02-02-2020 Lancets (Onetouc h Delica Plus Lancet) 33 gauge misc Start: 05-30-2023 End: 08-01-2023 Pen Needle, Diab etic (Bd Ultra-Fine Sophia Pen Needle) 32 gauge x 5/32 needle Start: 04-16-2023 End: 08-01-2023 Blood Sugar Diagnostic (Onetouch Verio Test Strips) strip Start: 05-30-2023 End: 08-01-2023 Blood Sugar Diagnostic (Truetrack Test) strip Start: 11-12-2019 End: 02-02-2020 Lancets (Onetouc h Delica Plus Lancet) 33 gauge misc Start: 05-30-2023 End: 08-01-2023 Pen Needle, Diab etic (Bd Ultra-Fine Sophia Pen Needle) 32 gauge x 5/32 needle Start: 04-16-2023 End: 08-01-2023 Blood Sugar Diagnostic (Onetouch Verio Test Strips) strip Start: 05-30-2023 End: 08-01-2023 Blood Sugar Diagnostic (Truetrack Test) strip Start: 11-12-2019 End: 02-02-2020 Lancets (Onetouc h Delica Plus Lancet) 33 gauge misc Start: 05-30-2023 End: 08-01-2023 Pen Needle, Diab etic (Bd Ultra-Fine Sophia Pen Needle) 32 gauge x 5/32 needle Start: 04-16-2023 End: 08-01-2023 Goals Date Patient Goal Desired Activity /State Mental Status Date Assessment Result Facility 07-19-2023 Cognitive function Voice/Name [facility] Work Phone: Clinical Notes 10-05-2020 to 08-07-2024 Note Date & Type Note Facility 08-07-2024 Evaluation note Diagnosis Onset Date Resolution Menorrhagia acute August 07 2:05pm Modified White class B pregestational diabetes mellitus acute August 07, 2024 2:05pm Obesity (BMI 30-39.9) acute August 07, 2024 2:05pm [facility] Work Phone: 1(805) 515-309905-30-2025 Evaluation note* Diagnosis Onset Date Resolution Status Admit Date Menorrhagia acute August 07 2:05pm Modified White class B pregestational diabetes mellitus acute August 07, 2024 2:05pm Obesity (BMI 30-39.9) acute August 07, 2024 2:05pm Abnormal uterine bleeding acute September 02, 2024 8:22am Modified White class B pregestational diabetes mellitus acute September 02, 2024 8:22am Obesity (BMI 30-39.9) acute Aug 8:22am Well woman exam with routine gynecological exam acute September 02 8:22am Hypertension chronic September 02, 2 025 8:22am [facility] Work Phone: 1(812) 569-105005-30-2025 Evaluation note* Diagnosis Onset Date Resolution Status Admit Date Menorrhagia acute August 07 2:05pm Obesity (BMI 30-39.9) acute August 07, 2024 2:05pm Modified White class B pregestational diabetes mellitus inactive August 07, 2024 2 :05pm Abnormal uterine bleeding acute September 02, 2024 8:22am Obesity (BMI 30-39.9) acute Aug 8:22am Hypertension chronic September 02, 2 025 8:22am Well woman exam with routine gynecological exam resolved September 02 8:22am Modified White class B pregestational diabetes mellitus inactive September 02, 2024 8:22am Abnormal uterine bleeding acute September 10, 2024 8:55am PCOS (polycystic ovarian syndrome) acute September 10, 2024 8 :55am Establishing care with new doctor, encounter for noneactive September 10, 2024 8:55am Essential hypertension noneactive Ju 2024 8:55am Morbid obesity with body mas s index (BMI) of 45.0 to 49.9 in adult noneactive September 10, 2024 8 :55am [facility] Work Phone: 1(470) 841-426805-30-2025 Evaluation note* Diagnosis Onset Date Resolution Status Admit Date Menorrhagia acute August 07 2:05pm Obesity (BMI 30-39.9) acute August 07, 2024 2:05pm Modified White class B pregestational diabetes mellitus inactive August 07, 2024 2 :05pm Abnormal uterine bleeding acute Gabrielle 25th, 2025 8:22am Obesity (BMI 30-39.9) acute Aug 8:22am Hypertension chronic September 02, 025 8:22am Well woman exam with routine gynecological exam resolved September 02 8:22am Modified White class B pregestational diabetes mellitus inactive September 02, 2024 8:22am Abnormal uterine bleeding acute September 10, 2024 8:55am PCOS (polycystic ovarian syndrome) acute September 10, 2024 8 :55am Screening for depression noneactive September 10, 2024 8:55am Establishing care with new doctor, encounter for noneactive September 10, 2024 8:55am Stress at home noneactive September 10, 2024 8:55am Essential hypertension noneactive 2024 8:55am Morbid obesity with body mas s index (BMI) of 45.0 to 49.9 in adult noneactive September 10, 2024 8 :55am [facility] Work Phone: 1(441) 207-244305-14-2025 Discharge summary Author Abram Watters [facility] Note Date/Time July 22, 2024 1:57p m [facility] Medical Records Department [address] [place] [address] Emergency Department Summary 07/22/24 MR#: [id number] Acct: [id number] Name: NANCY MATOS Rep #:[id number] : 1990 33 From: Abram Watters MD PCP: Dr. Marivel Danielson MD Status:REG ER Location: ED HPI HPI - Female History of Present Illness Chief Complaint: Vag Bleeding Detail of Chief Complaint: Vaginal bleeding that started last evening Informant: patient Pain Pain: Positive for Pelvic Pain; Negative for Vulvar Pain or Vaginal Pain Onset: Yesterday Context: Sudden Onset Timing: Continuous and Waxes and wanes Quality: Positive for Cramping Location: RLQ, LLQ and Back (Over the sacral lumbar region) Current Severity: Mild Maximum Severity: Moderate Worsened by: Movement and [place] Relieved by: Remaining Still Bleeding Issue: Positive for Vaginal bleeding and Passing clots Onset: Yesterday Context: Sudden Onset Timing: Continuous Current Severity: Heavy (Passing golf ball size clots.) Current pads/hr: 1 Maximum Severity: Heavy Associated Symptoms Associated Symptoms: Positive for - (Patient is not had a menstrual period sinceApril 2024.); Negative for Dysuria, Frequency, Urgency or Hematuria Sexually: Positive for Active Control: BTL Narrative Narrative: Patient is a 33-year-old female. She is bleeding heavily. She is going througha super tampon every 90 minutes. She denies orthostatic symptoms. Denies dyspnea or dyspnea on exertion. She does endorse cramping lower bilateral pain and pain in the sacral lumbar region. She does have history of polycystic ovarian syndrome. BMI is 44.7. She is sexually active. She is status post tubal ligation after the of her son last year. She is not on control pills presently. She was when she was younger because of painful menseswith heavy bleeding. Patient denies fever, chills night sweats. Patient denies urologic symptoms. Patient denies bruising easily. She is on no antithrombotic or anticoagulant. She did contact her cloth seconds sorter, Dr. Elaina Castanon. Office recommended she come to the emergency room because of the amount of bleeding. Prior similar symptoms: No Recent Illness/Hospitalization: No PFSH PFS Medical History PCOS (polycystic ovarian syndrome) GBS (group B Streptococcus carrier), +RV culture, currently delivery delivered Asthma Amenorrhea Infertility Hypertension Intertriginous dermatitis associated with moisture Sinusitis Gestational diabetes mellitus Abnormal ultrasound Cleft lip and palate, , affecting care of mother, antepartum Skin cyst Seasonal allergies Home Medications ?Medication ?Instructions ?Recorded ?Last Taken ?Type cetirizine 10 mg tablet (Zyrtec) 10 mg PO QHS allergy symptoms 02/02/20 07/21/24 History vitamin#30 30 mg iron-10 1 cap PO DAILY SUPPL EMENT 03/07/23 07/22/24 History mg iron-folic acid 1 mg-omg3 capsule labetalol 100 mg tablet 100 mg PO BID #180 tabs /04/0407/22/24 Rx fluticasone propionate 50 1 spray intranasal QHS PRN a llergy 07/22/24 07/21/24 History mcg/actuation nasal symptoms spray,suspension (24 Hour Allergy Relief) megestrol 20 mg tablet 20 mg PO DAILY #30 tabs 07/09 07/03 Unknown Rx Allergy/AdvReac Type Severity Reaction Status Date / Time Penicillins Allergy Severe Rash Verified 07/22/24 09:56 cefdinir (From Omnicef) Allergy Anaphylaxis Verified 07/22/24 09:56 diazepam (From Valium) AdvReac Severe Other Verified 07/22/24 09:56 hydrocodone (From Vicodin) AdvReac Severe Other Verified 07/22/24 09:56 erythromycin base AdvReac Intermediate vomiting Verified 07/22/24 09:56 Family History Father Hypertension Mother Diabetes Grandfather Cancer Grandmother TIA (transient ischemic attack) Grandfather Heart disease Myocardial infarction Grandmother Rheumatoid arteritis Fibromyalgia Aunt HELLP (hemolytic anemia/elev liver enzymes/low platelets in ) Unknown Pre-eclampsia Sister Bleeding disorder, Onset Age: 21 essential thrombocythemia (blood cancer) Surgical History H/O tubal ligation History of History of wisdom tooth extraction, class IV edentulism H/O nasal septoplasty Social History adopted: No household members: spouse housing: apartment number of children: 2 current occupational status: employed 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 pets and animals: Yes (2) pets and animals: dog(s) history of recent travel: No sexually active: Yes Smoking Status: Never smoker second hand exposure: No alcohol intake: never substance use type: does not use diet: low salt caffeine: Yes (2) Type: coffee frequency: 1-2 times per week nick/taoism: Jain seatbelt use: always do you feel safe at home: Yes additional social history: - Robin (ODOT) ROS ROS ED Constitutional Constitutional ED: Denies chills, fever(s), subjective or sweats Eyes Eyes: Denies blurry vision, change in vision or diplopia Cardiovascular Cardiovascular: Denies chest pain or palpitations Respiratory/Chest Respiratory/Chest: Denies cough, dyspnea or dyspnea on exertion Gastrointestinal Gastrointestinal: Denies abdominal pain, nausea or vomiting Genitourinary Genitourinary ED: Denies dysuria, hematuria or urinary frequency Musculoskeletal Musculoskeletal: Denies neck pain Integumentary Denies rash Hematologic/Lymphatic Hematologic/Lymphatic: Denies easy bleeding or easy bruising EXAM Physical Exam Const Vital Signs: 07/22/24 09:37 07/22/24 11:36 07/22/24 13:00 Temperature 98.4 F Temperature Source Oral Pulse Rate 95 88 78 Respiratory Rate 16 18 18 Blood Pressure 143/96 H 124/74 H 135/81 H Blood Pressure Mean 111 90 99 Pulse Ox 100 98 99 Oxygen Delivery Method Room Air Room Air Room Air Positive well nourished and well developed Constitutional Narrative: Vitals are remarkable for slightly elevated blood pressure. BMI is elevated. General Appearance ED: well developed; Negative for pallor HEENT HEENT Narrative: Head is atraumatic normocephalic. Eyes PERRL and EOMs intact bilaterally General Eye ED: Negative for pale conjunctiva Neck supple Resp normal respiratory effort and clear to auscultation bilaterally Cardio regular rate, regular rhythm, S1 normal heart sound, no murmurs and no JVD Back/Spine no CVA tenderness Extremity normal to inspection and full ROM Neuro oriented x3 and CN's II-XII intact bilaterally Sensorium / Orientation: alert Psych Mood & Affect: anxious Skin no rashes or lesions noted and no wounds General Skin Exam: Negative for jaundice or pallor Rashes: No rashes noted MDM MDM MDM Narrative Medical decision making narrative: Patient with heavy abnormal vaginal bleeding. Will obtain CBC to assess H&H andplatelet count. Serum test was ordered as well. Will need to performpelvic exam and determine if an ultrasound is indicated depending on laboratory results and findings on pelvic exam. History & Record Review Additional record(s) reviewed:: Prior outpatient record (Internal medicine note was reviewed. On April 10, 2024 for 3-month follow-up. Assessment was polycystic ovarian syndrome, hypertension, obesity (BMI 30-39.9). She had bloodwork done at that time. Note was authored by physician geriatric assistant Jesse Pinto), Prior labs and Other ([employer] INS[employer] office visit for postcoital bleeding. She was seen by nurse practitioner Darshana Huerta. Today's bleeding is significantly more after reading through the office note.) Lab Data Labs: Laboratory Results - last 24 hr 07/22/24 10:00 WBC 8.9 RBC 5.24 Hgb 14.9 Hct 42.7 MCV 81.5 MCH 28.4 MCHC 34.9 RDW Std Deviation 36.5 RDW Coeff of Edward 12.5 Plt Count 271 MPV 9.5 Immature Gran % (Auto) 0.400 Neut % (Auto) 67.5 Lymph % (Auto) 24.5 Hayes % (Auto) 5.5 Eos % (Auto) 1.7 Baso % (Auto) 0.4 Absolute Neuts (auto) 6.0 Absolute Lymphs (auto) 2.18 Nucleated RBC % 0 HCG, Quant < 1 Radiography Diagnostic Testing: Clinical Impression(s) from Imaging Studies Transvaginal US 07/22/24 11:30 IMPRESSION: The ovaries meet the criteria for polycystic ovary syndrome. The endometrium measures 0.5 cm. Reading Location: [facility] Management Discussion w/another healthcare provider: Compliance Examiner (Spoke with Dr. Crissy Sal who recommended Megace 20 mg once daily. Patient is to call office for appointment later this month.) Treatment and Re-Evaluation Narrative: There is Carrizales of blood in the vaginal vault. Blood is coming from the os. The cervix appears normal. The vaginal Koza appears normal. Bimanual exam is limited due to body habitus. I will obtain ultrasound of the pelvic organs. Will then consult Dr. Elaina Castanon. Discharge Plan Triage Chief Complaint: Vag Bleeding ED Provider: Abram Watters Dx/Rx/DC Orders Clinical Impression: Abnormal vaginal bleeding, PCOS (polycystic ovarian syndrome), Hypertension, Obesity (BMI 30-39.9) Instructions: ED Dysfunctional Uterine Bleeding Prescriptions: New megestrol 20 mg tablet 20 mg PO DAILY Qty: 30 0RF No Action cetirizine [Zyrtec] 10 mg tablet 10 mg PO QHS PNV #[id number] acid-omega3 30 mg iron-10 mg iron-1 mg capsule 1 cap PO DAILY labetalol 100 mg tablet 100 mg PO BID Qty: 180 1RF fluticasone propionate [24 Hour Allergy Relief] 50 mcg/actuation spray,suspension 1 spray intranasal QHS PRN (Reason: allergy symptoms) Rx Instructions: administer into each nostril Primary Care Provider: Marivel Danielson Referrals: Marivel Danielson MD [Primary Care Provider] - Print Language: Solomon Islander Disposition Disposition: Home, Self Care What to do if you have Problems For any increased pain, shortness of breath, bleeding, nausea or vomiting, chestpain, or any unexpected problems, contact your Primary Care Provider. Call [facility] ([phone]) or report to the closest Emergency Room. Call 911 if necessary. 07/22/24 1854 <Electronically signed by Abram Watters MD> Cosigner Signature (if applicable): CC: Dr. Marivel Danielson MD ~ Signed [facility] Work Phone: 1(975) 530-520505-14-2025 Discharge summary [facility] Medical Records Department [address] [place] [address] Emergency Department Summary 07/22/24 MR#: [id number] Acct: [id number] Name: NANCY MATOS Rep #:[id number] : 1990 33 From: Abram Watters MD PCP: Dr. Marivel Danielson MD Status:REG ER Location: ED HPI HPI - Female History of Present Illness Chief Complaint: Vag Bleeding Detail of Chief Complaint: Vaginal bleeding that started last evening Informant: patient Pain Pain: Positive for Pelvic Pain; Negative for Vulvar Pain or Vaginal Pain Onset: Yesterday Context: Sudden Onset Timing: Continuous and Waxes and wanes Quality: Positive for Cramping Location: RLQ, LLQ and Back (Over the sacral lumbar region) Current Severity: Mild Maximum Severity: Moderate Worsened by: Movement and [place] Relieved by: Remaining Still Bleeding Issue: Positive for Vaginal bleeding and Passing clots Onset: Yesterday Context: Sudden Onset Timing: Continuous Current Severity: Heavy (Passing golf ball size clots.) Current pads/hr: 1 Maximum Severity: Heavy Associated Symptoms Associated Symptoms: Positive for - (Patient is not had a menstrual period sinceJune 2023.); Negative for Dysuria, Frequency, Urgency or Hematuria Sexually: Positive for Active Control: BTL Narrative Narrative: Patient is a 33-year-old female. She is bleeding heavily. She is going througha super tampon every 90 minutes. She denies orthostatic symptoms. Denies dyspnea or dyspnea on exertion. She does endorsecramping lower bilateral pain and pain in the sacral lumbar region. She does have history of polycystic ovarian syndrome. BMI is 44.7. She is sexually active. She is status post tubal ligation after the of her son last year. She is not on control pills presently. She was when she was younger because of painful menseswith heavy bleeding. Patient denies fever, chills night sweats. Patient denies urologic symptoms. Patient denies bruising easily. She is on no antithrombotic or anticoagulant. She did contact her cloth seconds sorter, Dr. Gregg. Office recommended she come to the emergency room because of the amount of bleeding. Prior similar symptoms: No Recent Illness/Hospitalization: No PFSH PFSH Medical History PCOS (polycystic ovarian syndrome) GBS (group B Streptococcus carrier), +RV culture, currently delivery delivered Asthma Amenorrhea Infertility Hypertension Intertriginous dermatitis associated with moisture Sinusitis Gestational diabetes mellitus Abnormal ultrasound Cleft lip and palate, , affecting care of mother, antepartum Skin cyst Seasonal allergies Home Medications ?Medication ?Instructions ?Recorded ?Last Taken ?Type cetirizine 10 mg tablet (Zyrtec) 10 mg PO QHS allergy symptoms 02/02/20 07/21/24 History vitamin#30 30 mg iron-10 1 cap PO DAILY SUPPL EMENT 03/07/23 07/22/24 History mg iron-folic acid 1 mg-omg3 capsule labetalol 100 mg tablet 100 mg PO BID #180 tabs 03/1307/22/24 Rx fluticasone propionate 50 1 spray intranasal QHS PRN a llergy 07/22/24 07/21/24 History mcg/actuation nasal symptoms spray,suspension (24 Hour Allergy Relief) megestrol 20 mg tablet 20 mg PO DAILY #30 tabs 07/09 07/03 Unknown Rx Allergy/AdvReac Type Severity Reaction Status Date / Time Penicillins Allergy Severe Rash Verified 07/22/24 09:56 cefdinir (From Omnicef) Allergy Anaphylaxis Verified 07/22/24 09:56 diazepam (From Valium) AdvReac Severe Other Verified 07/22/24 09:56 hydrocodone (From Vicodin) AdvReac Severe Other Verified 07/22/24 09:56 erythromycin base AdvReac Intermediate vomiting Verified 07/22/24 09:56 Family History Father Hypertension Mother Diabetes Grandfather Cancer Grandmother TIA (transient ischemic attack) Grandfather Heart disease Myocardial infarction Grandmother Rheumatoid arteritis Fibromyalgia Aunt HELLP (hemolytic anemia/elev liver enzymes/low platelets in ) Unknown Pre-eclampsia Sister Bleeding disorder, Onset Age: 21 essential thrombocythemia (blood cancer) Surgical History H/O tubal ligation History of History of wisdom tooth extraction, class IV edentulism H/O nasal septoplasty Social History adopted: No household members: spouse housing: apartment number of children: 2 current occupational status: employed 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 pets and animals: Yes (2) pets and animals: dog(s) history of recent travel: No sexually active: Yes Smoking Status: Never smoker second hand exposure: No alcohol intake: never substance use type: does not use diet: low salt caffeine: Yes (2) Type: coffee frequency: 1-2 times per week nick/taoism: Jain seatbelt use: always do you feel safe at home: Yes additional social history: - Robin (ODOT) ROS ROS ED Constitutional Constitutional ED: Denies chills, fever(s), subjective or sweats Eyes Eyes: Denies blurry vision, change in vision or diplopia Cardiovascular Cardiovascular: Denies chest pain or palpitations Respiratory/Chest Respiratory/Chest: Denies cough, dyspnea or dyspnea on exertion Gastrointestinal Gastrointestinal: Denies abdominal pain, nausea or vomiting Genitourinary Genitourinary ED: Denies dysuria, hematuria or urinary frequency Musculoskeletal Musculoskeletal: Denies neck pain Integumentary Denies rash Hematologic/Lymphatic Hematologic/Lymphatic: Denies easy bleeding or easy bruising EXAM Physical Exam Const Vital Signs: 07/22/24 09:37 07/22/24 11:36 07/22/24 13:00 Temperature 98.4 F Temperature Source Oral Pulse Rate 95 88 78 Respiratory Rate 16 18 18 Blood Pressure 143/96 H 124/74 H 135/81 H Blood Pressure Mean 111 90 99 Pulse Ox 100 98 99 Oxygen Delivery Method Room Air Room Air Room Air Positive well nourished and well developed Constitutional Narrative: Vitals are remarkable for slightly elevated blood pressure. BMI is elevated. General Appearance ED: well developed; Negative for pallor HEENT HEENT Narrative: Head is atraumatic normocephalic. Eyes PERRL and EOMs intact bilaterally General Eye ED: Negative for pale conjunctiva Neck supple Resp normal respiratory effort and clear to auscultation bilaterally Cardio regular rate, regular rhythm, S1 normal heart sound, no murmurs and no JVD Back/Spine no CVA tenderness Extremity normal to inspection and full ROM Neuro oriented x3 and CN's II-XII intact bilaterally Sensorium / Orientation: alert Psych Mood & Affect: anxious Skin no rashes or lesions noted and no wounds General Skin Exam: Negative for jaundice or pallor Rashes: No rashes noted MDM MDM MDM Narrative Medical decision making narrative: Patient with heavy abnormal vaginal bleeding. Will obtain CBC to assess H&H andplatelet count. Serum test was ordered as well. Will need to performpelvic exam and determine if an ultrasound is indicated depending on laboratory results and findings on pelvic exam. History & Record Review Additional record(s) reviewed:: Prior outpatient record (Internal medicine note was reviewed. On April 10, 2024 for 3-month follow-up. Assessment was polycystic ovarian syndrome, hypertension, obesity (BMI 30-39.9). She had bloodwork done at that time. Note was authored by physician geriatric assistant Jesse Pinto), Prior labs and Other ([employer] office visit for postcoital bleeding. She was seen by nurse practitioner Darshana Huerta. Today's bleeding is significantly more after reading through the office note.) Lab Data Labs: Laboratory Results - last 24 hr 07/22/24 10:00 WBC 8.9 RBC 5.24 Hgb 14.9 Hct 42.7 MCV 81.5 MCH 28.4 MCHC 34.9 RDW Std Deviation 36.5 RDW Coeff of Edward 12.5 Plt Count 271 MPV 9.5 Immature Gran % (Auto) 0.400 Neut % (Auto) 67.5 Lymph % (Auto) 24.5 Hayes % (Auto) 5.5 Eos % (Auto) 1.7 Baso % (Auto) 0.4 Absolute Neuts (auto) 6.0 Absolute Lymphs (auto) 2.18 Nucleated RBC % 0 HCG, Quant < 1 Radiography Diagnostic Testing: Clinical Impression(s) from Imaging Studies Transvaginal US 07/22/24 11:30 IMPRESSION: The ovaries meet the criteria for polycystic ovary syndrome. The endometrium measures 0.5 cm. Reading Location: [facility] Management Discussion w/another healthcare provider: Compliance Examiner (Spoke with Dr. Crissy Sal who recommended Megace 20 mg once daily. Patient is to call office for appointment later this month.) Treatment and Re-Evaluation Narrative: There is Carrizales of blood in the vaginal vault. Blood is coming from the os. The cervix appears normal. The vaginal Koza appears normal. Bimanual exam is limited due to body habitus. I will obtain ultrasound of the pelvic organs. Will then consult Dr. Elaina Castanon. Discharge Plan Triage Chief Complaint: Vag Bleeding ED Provider: Abram Watters Dx/Rx/DC Orders Clinical Impression: Abnormal vaginal bleeding, PCOS (polycystic ovarian syndrome), Hypertension, Obesity (BMI 30-39.9) Instructions: ED Dysfunctional Uterine Bleeding Prescriptions: New megestrol 20 mg tablet 20 mg PO DAILY Qty: 30 0RF No Action cetirizine [Zyrtec] 10 mg tablet 10 mg PO QHS PNV #[id number] acid-omega3 30 mg iron-10 mg iron-1 mg capsule 1 cap PO DAILY labetalol 100 mg tablet 100 mg PO BID Qty: 180 1RF fluticasone propionate [24 Hour Allergy Relief] 50 mcg/actuation spray,suspension 1 spray intranasal QHS PRN (Reason: allergy symptoms) Rx Instructions: administer into each nostril Primary Care Provider: Marivel Danielson Referrals: Marivel Danielson MD [Primary Care Provider] - Print Language: [place] Islander Disposition Disposition: Home, Self Care What to do if you have Problems For any increased pain, shortness of breath, bleeding, nausea or vomiting, chestpain, or any unexpected problems, contact your Primary Care Provider. Call [facility] ([phone]) or report tothe closest Emergency Room. Call 911 if necessary. 07/22/24 1357 Cosigner Signature (if applicable): CC: Dr. Marivel Danielson MD ~ Signed [facility]05-14-2025 Radiology Diagnostic study note [facility] Imaging Services [address] [place], [place] [address] Transvaginal Non- MR#: [id number] Acct: [id number] Name: NANCY MATOS Rep #: [id number] : 1990 F 33 From: Etienne Stapleton MD PCP: Dr. Marivel Danielson MD Status: REG ER Study:Transvaginal Non- Date of Exam: 07/22/24 Exam# [id number] Ordering Dr: Basil Watters MD PROCEDURE: TRANSVAGINAL NON- 07/22/2024 REASON FOR EXAM: HEAVY VAGINAL BLEEDING WITH CLOTS, HCG NEGATIVE TECHNIQUE: Transabdominal and transvaginal pelvic ultrasound COMPARISON: None FINDINGS: The uterus measures 8.1 x 5.2 x 3.9 cm and appears anteverted, and retroflexed. There is no uterinefibroid or mass. The endometrium measures 0.5 cm. Nabothian cysts are noted. The right ovary measures 3.4 x 3.3 x 2.8 cm, volume = 16 cc. The left ovary measures 3.6 x 4.2 x 3.2 cm, volume = 25 cc. There are greater than 10 subcentimeter follicles visible on the left ovary. There isno adnexal mass or free fluid. US/Transvaginal Non- IMPRESSION: The ovaries meet the criteria for polycystic ovary syndrome. The endometrium measures 0.5 cm. Reading Location: [facility] CC: Dr. Marivel Danielson MD; Dr. Abram Watters MD ~ Supervisor Costuming: Signed [facility]01-31-2025 Evaluation note* Diagnosis Onset Date Resolution Status Admit Date Obesity (BMI 30-39.9) acute Mar 10:25am PCOS (polycystic ovarian syndrome) acute April 10 10:25am Hypertension chronic March 10:25am [facility] Work Phone: 1(953) 662-368005-11-2024 Discharge summary Author Elaina Castanon [facility] July 20, 2023 9:52am Note Date/Time July 20, 2023 9:50a m [facility] Medical Records Department [address] [place] [address] Instructions for Home/Discharge Instructions 07/20/23 0949 MR#: [id number] Acct: [id number] Name: NANCY MATOS Rep #:[id number] : 1990 32 From: Elaina wilson MD PCP: Doreen Physician,Theresa Primary Status :ADM IN Discharge Instructions Diet Discharge Diet: No restrictions Activity Discharge Activity: May Not Drive (for 2 weeks or while taking narcotic pain medications.), May Shower and May Take a Tub Bath (in 7 days) May shower in (days): 0 May resume sexual activity in: 4-6 weeks Weight Bearing Status: Full weight bearing Lifting Restrictions: 20 pounds Dressing / Incision Call your doctor if your incision/area has: Continuous Slow Oozing, Sudden Increased Bleeding, Increased Pain/ Swelling, Increased Redness and Foul Smelling Discharge Call your doctor if you observe: Fever of 101 or Higher and Using more than 1 pad per hour (for 2 hours) Suture Line Care: Avoid Pulling/Pushing and Avoid Pinching/Bending Cleanse incision/area with: Soap & Water and Keep Dressing Clean & Dry Follow Up Care Please Follow Up With: Elaina Castanon MD When: Call [phone] to make an appointment for an incision check in 1-2 weeks. Test Results: Test results from this visit will be discussed in further detail at your follow- up appointment, if applicable. Discharge Plan Admission Admit Date/Time: 07/18/23 09:35 Attending Provider: Elaina Castanon Primary Care Provider: Theresa Hernández Primary Discharge Orders/Prescriptions Prescriptions: New oxycodone-acetaminophen [Percocet] 5-325 mg tablet 1 tab PO Q6H PRN (Reason: pain) 7 Days Qty: 20 0RF naproxen [naproxen] 500 mg tablet 500 mg PO BID PRN PRN (Reason: Pain) Qty: 30 1RF No Action cetirizine [Zyrtec] 10 mg tablet 10 mg PO DAILY PRN (Reason: allergy symptoms) (DME) FreeStyle Lily 2 Sensor Kit See Rx Instructions .Route Qty: 1 0RF Rx Instructions: As directed PNV #41-bcdd-fkfje acid-omega3 30 mg iron-10 mg iron-1 mg capsule 1 cap PO DAILY folic acid w/dha 800 mcg 1 tab PO DAILY aspirin 81 mg tablet,delayed release (DR/EC) 81 mg PO DAILY metformin 500 mg tablet extended release 24 hr 1,000 mg PO BID Qty: 360 1RF Humulin N NPH Insulin KwikPen 100 unit/mL (3 mL) insulin pen 20 unit subcut .in pm Patient Comments: pt takes 20 units at hs and 10 units in the am Rx Instructions: 10 units in am labetalol 100 mg tablet 100 mg PO BID Patient Comments: She stepped me down to this dose (DME) pen needle, diabetic [BD Ultra-Fine Sophia Pen Needle] 32 gauge x 5/32 needle See Rx Instructions .ROUTE .MEDSUPPLY Qty: 100 4RF Rx Instructions: bid (DME) lancets [OneTouch Delica Plus Lancet] 33 gauge misc See Rx Instructions .Route Qty: 300 1RF Rx Instructions: 4 times daily (DME) OneTouch Verio test strips Strip See Rx Instructions .Route Qty: 300 1RF Rx Instructions: 4 times daily Referrals / Follow Up: Care Physician,No Primary [Primary Care Provider] - 07/20/2352<Electronically signed by Elaina Castanon MD>Elaina Castanon MD CC: No Primary Care Physician ~ Signed [facility] Work Phone: 1(217) 891-218105-11-2024 Progress note Author Elaina Castanon [facility] July 20, 2023 9:49am Note Date/Time July 20, 2023 9:49a m [facility] Medical Records Department [address] [place] [address] Progress Note - OBGYN 07/20/2348 MR#: [id number] Acct: [id number] Name: NANCY MATOS Rep #:[id number] : 1990 32 From: Elaina wilson MD PCP: Care Physician,No Primary Status :ADM IN Location: [place] [address]-1 Subjective Subjective Patient doing well without complaints. Tolerating PO. Ambulating and voiding without difficulty. infant feeding well. Denies chest pain, shortness of breath,calf pain/swelling, fevers, chills, lightheadedness. Objective Data Objective Data Vital Signs: Vital Signs Temp Pulse Resp BP Pulse Ox O2 Del Method 98.3 F 86 16 116/64 98 Room Air 07/20/23 08:07 07/20/23 08:07 07/20/23 08:07 07/20/23 08:07 07/20/23 08:07 07/20/23 08:07 Oxygen Delivery Method Room Air Weight: 243 lb Body Mass Index (BMI) 41.7 Intake & Output: Intake and Output for Last 24 Hours 07/18/23 07/19/23 07/20/23 23:59 23:59 23:59 Intake Total 3573.42 / 3573.42 Output Total 1580 / 1580 800 / 800 Balance 1992.42 / 1992.42 -800 / -800 Lab / Micro Data 07/19/23 05:30 ROS Constitutional Constitutional: Reports systems reviewed and no addt'l complaints, except as documented Cardiovascular Cardiovascular: Reports systems reviewed and no addt'l complaints, except as documented Respiratory/Chest Respiratory/Chest: Reports systems reviewed and no addt'l complaints, except as documented Gastrointestinal Gastrointestinal: Reports systems reviewed and no addt'l complaints, except as documented Physical Exam Const alert, oriented x3 and no apparent distress HEENT Head and Scalp: atraumatic Resp normal respiratory effort GI soft to palpation and non-tender Inspection: incision intact, healing well and drainage (none) Bimanual Exam - Vag & Uterus: uterus non-tender Uterus Palpation: uterus fundus firm (below Umbilicus) Assessment & Plan (1) delivery delivered: COMMENT: [facility] [place] PLAN: Plan s/p LTCS PPD # 2 1. routine post care 2. breast feeding- support given 3. rh positive 4. rubella immune 07/20/23 0949 <Electronically signed by Elaina Castanon MD> Cosigner Signature (if applicable): CC: ~ Signed [facility] Work Phone: 1(469) 796-198805-11-2024 History and physical note Author Elaina Castanon [facility] July 20, 2023 9:43am Note Date/Time July 20, 2023 9:43a m [facility] Medical Records Department [address] [place] [address] H&P Exam - [employer] INS[employer] 07/20/23 0939 MR#: [id number] Acct: [id number] Name: NANCY MATOS Rep #:[id number] : 1990 32 From: Elaina wilson MD PCP: Care Physician,No Primary Status :ADM IN Location: [id number] HPI - General General Date of Admission: 07/18/23 HPI Narrative NANCY MATOS, is a 32 F who presents for RLTCS. Maternal Data Information AGAPITO Calculator Estimated Delivery Date Method Current WG Current Estimate 08/01/23 Ultrasound #1 38w 2d [facility] Medical History (Updated 07/20/23 @ 09:[address] Elaina Castanon MD) Abnormal ultrasound Amenorrhea Asthma Cleft lip and palate, , affecting care of mother, antepartum Gestational diabetes mellitus Hypertension Infertility Intertriginous dermatitis associated with moisture PCOS (polycystic ovarian syndrome) Seasonal allergies Sinusitis Skin cyst Home Medications cetirizine 10 mg tablet (Zyrtec) 10 mg PO DAILY PRN allergy symptoms 02/02/20 [History Last Taken 07/17/23 22:00] flash glucose sensor (FreeStyle Lily 2 Sensor kit) #1 ea 01/11/23 [Rx Last Taken Unknown] aspirin 81 mg tablet,delayed release 81 mg PO DAILY 03/07/23 [History Last Taken 07/13/23 10:48] folic acid w/dha 1 tab PO DAILY 03/07/23 [History Last Taken 07/17/23 10:00] metformin 500 mg tablet,extended release 24 hr 1,000 mg (2 x 500 mg) PO BID gdm #360 tabs 03/07/23 [Rx Last Taken 07/17/23 22:00] vitamin#30 30 mg iron-10 mg iron-folic acid 1 mg-omg3 capsule 1 cap PO DAILY 03/07/23 [History Last Taken 07/17/23 10:00] pen needle, diabetic 32 gauge x 5/32 (BD Ultra-Fine Sophia Pen Needle) #100 ea 04/16/23 [Rx Last Taken Unknown] OneTouch Delica Plus Lancet 33 gauge (lancets) #300 ea 05/30/23 [Rx Last Taken Unknown] OneTouch Verio test strips (blood sugar diagnostic) #300 ea 05/30/23 [Rx Last Taken Unknown] insulin NPH isoph U-100 human 100 unit/mL (3 mL) subcutaneous pen (Humulin N NPHU-100 Insulin KwikPen) 20 unit subcut .in pm GDM 06/07/23 [History Last Taken 07/17/23 22:00] labetalol 100 mg tablet 100 mg PO BID High blood pressure 06/18/23 [History Last Taken 07/18/23 06:00] Allergy/AdvReac Type Severity Reaction Status Date / Time Penicillins Allergy Severe Rash Verified 07/18/23 10:41 cefdinir [From Omnicef] Allergy Anaphylaxis Verified 07/18/23 10:41 diazepam [From Valium] AdvReac Severe Other Verified 07/18/23 10:41 hydrocodone [From Vicodin] AdvReac Severe Other Verified 07/18/23 10:41 erythromycin base AdvReac Intermediate vomiting Verified 07/18/23 10:41 Family History Father Hypertension Mother Diabetes Grandfather Cancer Grandmother TIA (transient ischemic attack) Grandfather Heart disease Myocardial infarction Grandmother Rheumatoid arteritis Fibromyalgia Aunt HELLP (hemolytic anemia/elev liver enzymes/low platelets in ) Unknown Pre-eclampsia Sister Bleeding disorder, Onset Age: 21 essential thrombocythemia (blood cancer) Surgical History (Updated 07/20/23 @ 09:[address] 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 Date Name GA/Weeks Outcome Route Bth Weight Infant Gen Labor Lgth Anesthesia Del Farzadat[facility]ney Provider FOB 01/17/20 Fahad 37 live - full term 4lbs 3oz Female Guillaume Kelly Delivery Date: 01/17/20 Last Updated by: Mary Blackburn Diabetes, Pre-eclampsia, Breech Visit Details Expected Delivery Route/Plan plans repeat c/s - 38 weeks Plans Covid status: vaccinated, but not boosted Flu vaccine: vaccinated 01/11/23 Tdap vaccine: given Rhogam: [na LARC form signed: declined movement and labor precautions reviewed. Problem list reviewed and updated with the most current plan of care details and appropriate orders placed. Relevant counseling for the gestational age provided. Continue routine care and follow up unless otherwise noted in visit notes/problem list details OB Flowsheet Initial Weight: 242 lb Date -?-?-?-?-?-?-?-?-?-?-?-?- EGA Weight BP Urine Prot -?-?-?-?-?-?--?-?-?-?-?-?- Glucose FHR FuHt Pres Dilation -?-?-?-?-?-?-?-?-?-?-?-?- Effaced St Visit Note 12/14/22 -?-?-?-?-?-?-?-?-?-?-?-?- 7w 1d 242 lb 6 oz (+6 oz) 136/95 -?-?-?-?-?-?-?-?-?-?-?-?- 163 -?-?-?-?-?-?-?-?-?-?-?-?- LC- AGAPITO by 12/13 scan 08/01/2023. FHR 163. desires nipt. plans repeat c/s. on metformin for PCOS and labetolol for chronic htn. baseline labs ordered. 01/11/23 -?-?-?-?-?-?-?-?-?-?-?-?- 11w 1d 247 lb 6 oz (+5 lb 6 oz) 123/83 Negative -?-?-?-?-?-?-?-?-?-?-?-?- Negative 171 -?-?-?-?-?-?-?-?-?-?-?-?- ABIGAIL- pt has a his tory of insulin resistance on metformin. will order a continuous glucose monitor. on labetalol and h/o severe pre-e with IUGR> start baby asa. has baseline labs including NIPT today. [facility] has a history of insu loulou resistance on metformin. will order a continuous glucose monitor. on labetalol and h/o severe pre-e with IUGR> start baby asa. has baseline labs including NIPT today. CRL measuring 11 weeks 3 days. Flu shot today. 02/08/23 -?-?-?-?-?-?-?-?-?-?-?-?- 15w 1d 247 lb (+5 lb) 122/85 Negative -?-?-?-?-?-?-?-?-?-?-?-?- Negative 170 -?-?-?-?-?-?-?-?-?--?-?-?- SM- no vb crampi ng. SM- no vb cramping. elevated fasting sugars, recommend increasing metformin and referral to dr mcdonald 03/06/23 -?-?-?-?-?-?-?-?-?-?-?-?- 18w 6d 242 lb 6 oz (+6 oz) 114/77 Negative -?-?-?-?-?-?-?-?-?-?-?-?- Negative 143 -?-?-?-?-?-?-?-?-?-?-?-?- LC- no vb/crampi ng. has anatomy scan for tomorrow. stable sugars. genetic disorder discovered on daughter and , desires genetic counseling with [facility]. 04/05/23 -?-?-?-?-?-?-?-?-?-?-?-?- 23w 1d 244 lb (+2 lb) 120/78 Negative -?-?-?-?-?-?-?-?-?-?-?-?- Negative 150 -?-?-?-?-?-?-?-?-?-?-?-?- SM- no vb lof go od fm n oregular ctx discussed delivery planning 05/03/23 -?-?-?-?-?-?-?-?-?-?-?-?- 27w 1d 239 lb (-3 lb) 134/86 Negative -?-?-?-?-?-?-?-?-?-?-?--?- Negative 150 -?-?-?-?-?-?-?-?-?-?-?-?- SM- had some bor derline bps at home. no vb lof good fm no regular ctx had some illness. check preeclampsia labs today for borderline bps at home 05/17/23 -?-?-?-?-?-?-?-?-?-?-?-?- 29w 1d 240 lb (-2 lb) 115/72 Negative -?-?-?-?-?-?-?-?-?-?-?-?- Negative 150 32 -?-?-?-?-?-?-?-?-?-?-?-?- SM- no vb lof go od fm no regular ctx 05/31/23 -?-?-?-?-?-?-?-?-?-?-?-?- 31w 1d 238 lb (-4 lb) 115/69 Negative -?-?-?-?-?-?-?-?-?-?-?-?- Negative 145 -?-?-?-?-?-?-?-?-?-?-?-?- SM- sees [facility] diabetes control, no vb lof good fm no regular ctx 06/07/23 -?-?-?-?-?-?-?-?-?-?-?-?- 32w 1d 236 lb 8 oz (-5 lb 8 oz) 111/70 Negative -?-?-?-?-?-?-?-?-?-?-?-?- Negative 140 -?-?-?-?-?-?-?-?-?-?-?-?- SM- needs BPP du e to trouble staying on the monitor 06/14/23 -?-?-?-?-?-?-?-?-?-?-?-?- 33w 1d 239 lb (-3 lb) 101/69 Negative -?-?-?-?-?-?-?-?-?-?-?-?- Negative 140 -?-?-?-?-?-?-?-?-?-?-?-?- SM- intermittne black spots in vision, normal bps will get labs todayreviewed bps and some are low. reviewed preacutions 06/21/23 -?-?-?-?-?-?-?-?-?-?-?-?- 34w 1d 223 lb (-19 lb) 111/77 Negative -?-?-?-?-?-?-?-?-?-?-?-?- Negative 140 -?-?-?-?-?-?-?-?-?-?-?-?- SM- no vb crampi ng no lof good fm BS controlled 06/28/23 -?-?-?-?-?-?--?-?-?-?-?-?- 35w 1d 235 lb (-7 lb) 121/83 -?-?-?-?-?-?-?-?-?-?-?-?- 140 -?-?-?-?-?-?-?-?-?-?-?-?- SM- no vb lof go od fm no regular ctx 07/04/23 -?-?-?-?-?-?-?-?-?-?-?-?- 36w 0d 240 lb 4 oz (-1 lb 12 oz) 120/82 Negative -?-?-?-?-?-?-?-?-?-?-?-?- Negative 130 -?-?-?-?-?-?-?-?-?-?-?-?- MH-No VB, LOF or CTX. GBS done. NST reactive. 07/12/23 -?-?-?-?-?-?-?-?-?-?-?-?- 37w 1d 239 lb (-3 lb) 127/84 Negative -?-?-?-?-?-?-?-?-?-?-?-?- Negative 130 -?-?-?-?-?-?-?-?-?-?-?-?- SM- no vb lof go od fm n oregular ctx NST FHR Rate Baby A Baseline: 140 ROS Constitutional Constitutional: Reports systems reviewed and no addt'l complaints, except as documented ENT HEENT: Reports systems reviewed and no addt'l complaints, except as documented Cardiovascular Cardiovascular: Reports systems reviewed and no addt'l complaints, except as documented Respiratory/Chest Respiratory/Chest: Reports systems reviewed and no addt'l complaints, except as documented Gastrointestinal Gastrointestinal: Reports systems reviewed and no addt'l complaints, except as documented and nausea; Denies abdominal pain Genitourinary Genitourinary: Reports systems reviewed and no addt'l complaints, except as documented, contractions Details: present and frequency (regular ) and movement Details: present Musculoskeletal Musculoskeletal: Reports systems reviewed and no addt'l complaints, except as documented Integumentary Integumentary: Reports as per HPI Neurologic Neurologic: Reports systems reviewed and no addt'l complaints, except as documented Endocrine Endocrinology: Reports systems reviewed and no addt'l complaints, except as documented Vital Signs Vital Signs Vital Signs: 07/19/23 14:40 07/19/23 19:55 07/20/23 01:59 Temperature Temperature Source Temporal Temporal Temporal Pulse Rate Respiratory Rate Respiratory Depth Blood Pressure Blood Pressure Mean Blood Pressure Source Blood Pressure Position Blood Pressure Location Pulse Ox Oxygen Delivery Method 07/19/23 10:00 07/19/23 12:00 07/19/23 14:40 Temperature 98.1 F Temperature Source Temporal Pulse Rate 95 98 Respiratory Rate 18 16 16 Respiratory Depth Normal Normal Blood Pressure 123/84 H 117/68 Blood Pressure Mean 97 84 Blood Pressure Source Monitor Monitor Blood Pressure Position Semi-Fowlers Semi-Fowlers Blood Pressure Location Right Forearm Right Arm Pulse Ox 97 100 97 Oxygen Delivery Method Room Air Room Air Room Air 07/19/23 19:55 07/20/23 01:59 07/20/23 08:07 Temperature 98.0 F 98.2 F 98.3 F Temperature Source Temporal Temporal Temporal Pulse Rate 93 82 86 Respiratory Rate 16 16 16 Respiratory Depth Blood Pressure 134/84 H 118/76 116/64 Blood Pressure Mean 100 90 81 Blood Pressure Source Monitor Monitor Monitor Blood Pressure Position Semi-Fowlers Semi-Fowlers Semi-Fowlers Blood Pressure Location Right Arm Right Arm Right Arm Pulse Ox 98 99 98 Oxygen Delivery Method Room Air Room Air Room Air Weight Weight: 243 lb Body Mass Index (BMI) 41.7 Physical Exam Const alert, oriented x3 and healthy appearing Constitutional Narrative: uncomfortable with contractions HEENT normocephalic and moist oral mucous membranes Head and Scalp: atraumatic Neck full ROM, no lymphadenopathy, supple and thyroid normal General: trachea midline Thyroid: thyroid normal Lymph Lymphatic: no lymphadenopathy noted Chest inspection of chest normal Resp normal respiratory effort Cardio regular rate GI normal to inspection, nondistended, normoactive bowel sounds, soft to palpation and non-tender Inspection: gravid external exam normal Bimanual Exam - Vag & Uterus: uterus non-tender Manual OB Exam: estimated gestational size appropriate, presentation cephalic, dilated, effaced and station Extremity normal to inspection General Extremity: Negative for edema Skin no rashes or lesions noted Neuro deep tendon reflexes 2+ bilaterally Motor Exam: strength 5/5 throughout and clonus absent Psych mental status grossly normal Labs Labs Labs: Blood Type A POSITIVE Antibody Screen NEGATIVE Hct 31.2 % (37-47) L Hgb 10.2 g/dL (12.0-15.0) L Pap Smear Negative Obstetrics Ultrasound Syphilis Total Ab Non-reactive Rubella IgG Antibody Reactive (Nonreactive) Hep Bs Antigen Non-Reactive (Nonreactive) Hepatitis C Antibody Non-Reactive (Nonreactive) Chlamydia DNA (SHERICE) Negative (Negative) N.gonorrhoeae DNA (SHERICE) Negative (Negative) HIV 1&2 Antibody Non-Reactive (Nonreactive) Glucose 1 Hr 50 gm 152 mg/dL (70-140) H Gest Glucose Tolerance MG/DL Rhogam given: No Assessment & Plan (1) delivery delivered: COMMENT: [facility] [place] PLAN: Plan proceed with [facility] 07/20/23 0943 <Electronically signed by Elaina Castanon MD> Cosigner Signature (if applicable): CC: Dr. Elaina Castanon MD; No Primary Care Physician~ Signed [facility] Work Phone: 1(630) 139-425705-11-2024 Procedure [facility] 07-19-2023 Progress note Author Lucille Gaytan [facility] July 19, 2023 12:39pm Note Date/Time July 19, 2023 12:39 pm [facility] Medical Records Department [address] [place] [address] Progress Note - OBGYN 07/19/23 1237 MR#: [id number] Acct: [id number] Name: NANCY MATOS Rep #:[id number] 15 : 1990 32 From: Lucille Gaytan CNCathie PCP: Care Physician,No Primary Status :ADM IN [id number] Subjective Subjective Patient doing well without complaints. Tolerating PO. Ambulating and voiding without difficulty. Feeding well. Denies chest pain, shortness of breath, calf pain/swelling, fevers, chills, lightheadedness. Objective Data Objective Data Vital Signs: Vital Signs Temp Pulse Resp BP Pulse Ox O2 Del Method 97.9 F 88 18 123/84 H 97 Room Air 07/19/23 07:55 07/19/23 07:55 07/19/23 10:00 07/19/23 10:00 07/19/23 10:00 07/19/23 10:00 Oxygen Delivery Method Room Air Weight: 243 lb Body Mass Index (BMI) 41.7 Intake & Output: Intake and Output for Last 24 Hours 07/17/23 07/18/23 07/19/23 23:59 23:59 23:59 Intake Total 3573.42 / 3573.42 Output Total 1580 / 1580 800 / 800 Balance 1992.42 / 1992.42 -800 / -800 Lab / Micro Data 07/19/23 05:30 Labs: Laboratory Results - last 24 hr 07/18/23 14:38: POC Glucose 70 L 07/19/23 05:30: WBC 8.5, RBC 3.89 L, Hgb 10.2 L, Hct 31.2 L, MCV 80.2 L, MCH 26.2 L, MCHC 32.7, RDW Std Deviation 40.7, RDW Coeff of Edward 14.0, Plt Count 184,MPV 10.7 07/19/23 05:33: POC Glucose 81 ROS Constitutional Constitutional: Reports systems reviewed and no addt'l complaints, except as documented; Denies anorexia or headache(s) Cardiovascular Cardiovascular: Reports systems reviewed and no addt'l complaints, except as documented; Denies dizziness, dyspnea, nausea or tachypnea Respiratory/Chest Respiratory/Chest: Reports systems reviewed and no addt'l complaints, except as documented; Denies cough, dyspnea, shortness of breath at rest or tachypnea Gastrointestinal Gastrointestinal: Reports systems reviewed and no addt'l complaints, except as documented; Denies abdominal pain, constipation or nausea Genitourinary Genitourinary: Reports systems reviewed and no addt'l complaints, except as documented; Denies burning urination, difficulty urinating, dysuria, urinary frequency or urinary incontinence Musculoskeletal Musculoskeletal: Reports systems reviewed and no addt'l complaints, except as documented Integumentary Integumentary: Reports systems reviewed and no addt'l complaints, except as documented Neurologic Neurologic: Reports systems reviewed and no addt'l complaints, except as documented; Denies abnormal speech, dizziness or headache(s) Psychiatric Psychiatric: Reports systems reviewed and no addt'l complaints, except as documented Endocrine Endocrinology: Reports systems reviewed and no addt'l complaints, except as documented Hematologic/Lymphatic Hematologic/Lymphatic: Reports systems reviewed and no addt'l complaints, exceptas documented Physical Exam Const alert, oriented x3 and no apparent distress Neck full ROM Resp normal respiratory effort, normal air movement and no retractions Effort and Inspection: able to speak in complete sentences and symmetric chest movement GI soft to palpation Bladder / Kidney Exam: bladder normal to palpation Uterus Palpation: uterus fundus Extremity normal to inspection and full ROM Psych mental status grossly normal, thought process normal and cooperative Assessment & Plan (1) delivery delivered: PLAN: s/p LTCS PPD # 1 1. routine post care 2. breast feeding- support given 3. rh positive 4. rubella immune (2) GBS (group B Streptococcus carrier), +RV culture, currently : COMMENT: treat if labor (3) uterine contractions: COMMENT: ffn neg, closed cervical exam (4) UTI (urinary tract infection) during : QUALIFIERS: Trimester: third trimester Qualified Code(s): O23.43 - Unspecified infection of urinary tract in , third trimester (5) Nausea and vomiting during : (6) Modified White class B pregestational diabetes mellitus: COMMENT: insulin, metfomin. sees faizan. Growth Q4wk and twice wkly NST at 32 wk. 2/23 growth adequate (7) History of prior with IUGR : COMMENT: third trimester testing already planned (8) History of : COMMENT: Jan 2020, plan RLTCS at 38 weeks, 07/17 @ 12 with SM (9) Supervision of high-risk : QUALIFIERS: Trimester: second trimester Qualified Code(s): O09.92- Supervision of high risk , unspecified, second trimester COMMENT: PRR AGAPITO: 08/01/2023 lili Bowles PC: Fahad Spouse: Robin (10) Obesity affecting : QUALIFIERS: Trimester: second trimester Qualified Code(s): O99.212 - Obesity complicating , second trimester COMMENT: encouraged healthy weight gain (11) : QUALIFIERS: Weeks of gestation: 37 weeks Qualified Code(s): Z3A.37 - 37 weeks gestation of COMMENT: low risk nipt . obtaining genetic testing with daughter with nahomy perkins and results are pending. (12) History of pre-eclampsia in prior , currently : COMMENT: baseline PEC labs, 05/06 rpt PEC labs this week (13) Hypertension: QUALIFIERS: Hypertension type: primary hypertension Qualified Code(s): I10 - Essential (primary) hypertension COMMENT: on labetolol 100mg deliver at 38 weeks - testing planned weekly bpp and weekly nst for GDM and cHTN growth q 4 weeks with MFM echo sched 04/03/23 Charges/Coding Multi Select Codes Urinary/Genital Urinary/Genital CPT Codes: No Charge 07/19/23 1239 <Electronically signed by Lucille Gaytan CNM> Cosigner Signature (if applicable): CC: ~ Signed [facility] Work Phone: 1(368) 149-817005-16-2023 History of Present illness Narrative* Carolina Aceves MA - 07/24/2022 10:30 AM EDT Patient here for nurse visit suture removal. Suture well intact no complications. No questions at this time. Follow up scheduled as needed. documented in this [id number] History of Present illness Narrative* Mckenna Suarez Jr., - 07/11/2022 2:15 PM EDT OPERATIVE REPORT PROCEDURE: EXCISION 07/11/2022 PREOPERATIVE DIAGNOSIS: [...] of the dermis into the deep subcutaneous tissue.The specimen was placed in formalin and sent routine pathological examination. Hemostasis was achieved with electrocautery. In order to reduced wound tension, undermining was carried out circumferentially . Wound closure was performed as above. The estimated blood loss was minimal. There were no complications. Wound care instructions were provided to the patient. Superficial suture removal arrange ments were made with the patient. PERFORMED BY: Mckenna Suarez DO documented in this [id number] History of Present illness Narrative* Juani Husain CNP - 04/16/2022 10:59 AM EST [facility] [address] [facility] [place] [facility] [address] Patient Demographics: Nancy Ya Matos [address] [facility] [address] (home) Date of : 1990 HPI WITH [...] diet. I had the pleasure of seeing Nancy today. This 31-year-old female . Hypertension is [...] Take by mouth ., Disp: , Rfl: [id number]-si5-glv-chw-kxlb oil 400 mcg-35 mg -25 mg-5 mg Chew, Chew and Swallow 1 tablet daily ., Disp: , Rfl: no.82/iron/folate no2 (TL FOLATE ORAL), Take 1,333 mcg by mouth Folic acid 800 mcg No iron., Disp: , Rfl: Condition and plan discussed [...] past medical history, past social history, past surgicalhistory and problem list. Past History Past Medical [...] preeclampsia. - Discussed possibility of BMZ and startingtoward delivery, however fetus is BREECH - Pt aware the mode / timing of delivery will be based upon clinical findings on L&D. New problem 01/14/2020 Past Surgical History: Procedure Laterality Date SECTION, LOW TRANSVERSE 01/17/2020 scalp cysts removed SEPTO-NASAL RECONSTRUCTION N/A 07/18/2015 Procedure: SEPTO-NASAL RECONSTRUCTION W SMR TURINATES; Surgeon: Rober Castle MD; Location: [facility]; Service: WISDOM TOOTH EXTRACTION age 17 Current Outpatient Medications Medication Sig Dispense Refill cetirizine (ZYRTEC) 10 MG tablet Take 1 (one) tablet (10 mg total) by mouth daily . labetaloL (NORMODYNE) 100 MG tablet Take 1 (one) tablet (100 mg total) by mouth 2 (two) times a day. 180 tablet 1 metFORMIN (GLUCOPHAGE-XR) 500 MG 24 hr tablet Take 1 (one) tablet (500 mg total) by mouth daily with breakfast . 30 tablet 2 nut.tx.comp. immune systm,reg (NUT.TX.COMP. IMMUNE SYSTM,PLUS ORAL) Take by mouth . [id number]-[id number]-lr3-hdp-keg-gwye oil 400 mcg-35 mg -25 mg-5 mg [...] distention, abdominal pain, anal bleeding, blood in stool,constipation, diarrhea, nausea and vomiting. Endocrine: Negative. Negative [...] or At-Risk Aged Out Health Maintenance Review Juani Husain CNP documented in this [id number] History of Present illness Narrative* Juani Husain CNP - 11/16/2021 9:28 AM EDT [facility] [address] [place] [address] [facility] [address] Patient Demographics: Nancy Matos [address] [phone] (home) Date of : 1990 HPI WITH [...] Take by mouth ., Disp: , Rfl: [id number]-dw4-jpq-mfd-sldm oil 400 mcg-35 mg -25 mg-5 mg Chew, Chew and Swallow 1 tablet daily ., Disp: , Rfl: no.82/iron/folate no2 (TL FOLATE ORAL), Take 1,333 mcg by mouth Folic acid 800 mcg No iron., Disp: , Rfl: Condition and plan discussed [...] past medical history, past social history, past surgicalhistory and problem list. Past History Past Medical [...] preeclampsia. - Discussed possibility of BMZ and startingtoward delivery, however fetus is BREECH - Pt aware the mode / timing of delivery will be based upon clinical findings on L&D. New problem 01/14/2020 Past Surgical History: Procedure Laterality Date SECTION, LOW TRANSVERSE 01/17/2020 scalp cysts removed SEPTO-NASAL RECONSTRUCTION N/A 07/18/2015 Procedure: SEPTO-NASAL RECONSTRUCTION W SMR TURINATES; Surgeon: Rober Castle MD; Location: [facility]; Service: WISDOM TOOTH EXTRACTION age 17 Current Outpatient Medications Medication Sig Dispense Refill cetirizine (ZYRTEC) 10 MG tablet Take 10 mg by mouth daily . labetaloL (NORMODYNE) 100 MG tablet Take 1 (one) tablet (100 mg total) by mouth 2 (two) times a day. 180 tablet 1 metFORMIN (GLUCOPHAGE-XR) 500 MG 24 hr tablet norethindrone (MICRONOR) 0.35 mg tablet nut.tx.comp. immune systm,reg (NUT.TX.COMP. IMMUNE SYSTM,PLUS ORAL) Take by mouth . [id number]-VU-jx7-guq-nyu-errq oil 400 mcg-35 mg -25 mg-5 mg [...] distention, abdominal pain, anal bleeding, blood in stool,constipation, diarrhea, nausea and vomiting. Endocrine: Negative. Negative [...] or At-Risk Aged Out Health Maintenance Review Juani Husain CNP documented in this [id number] Instructions* Patient Instructions* Henrry Barahona CNP - 09/10/2021 1:48 PM EDT Recommend He/she should return to urgent care, make an appointment with their family physician, or go to the emergency room if symptoms persist or get acutely worse. Take over the counter tylenol or ibuprofen as needed for pain- follow package instructions. FOLLOW UP WITH hse specialist as soon as possible REST AND HYDRATE WELL Instill medication as prescribed Can apply cool or warm compress over left eye as needed for comfort - no more then 15 min. At a time * Attachments The following attachments cannot be sent through Care Everywhere. * Corneal Scratches ([place] Islander) documented in this [id number] History of Present illness Narrative* Henrry Barahona CNP - 09/10/2021 1:35 PM EDT Images from the original note were not included. Patient Name: [facility] Location: [address], [address] [place], [place] [id number] Date Of : Date Of Visit: 1990 09/10/2021 MRN# Provider: [id number] Henrry Barahona CNP Chief Complaint Patient presents with [...] prescribed and recommended to follow up with hse specialist if symptoms persists. Per exam- no [...] persist or get acutely worse. Recommended follow upwithin the next week with their PCP or [...] double vision, fever, itching, nausea, recent URI orvomiting. Treatments tried: cold water rinse. The treatment [...] preeclampsia. - Discussed possibility of BMZ and startingtoward delivery, however fetus is BREECH - Pt aware the mode / timing of delivery will be based upon clinical findings on L&D. New problem 01/14/2020 Past Surgical History: Procedure Laterality Date SECTION, LOW TRANSVERSE 01/17/2020 scalp cysts removed SEPTO-NASAL RECONSTRUCTION N/A 07/18/2015 Procedure: SEPTO-NASAL RECONSTRUCTION W SMR TURINATES; Surgeon: Rober Castle MD; Location: [facility]; Service: WISDOM TOOTH EXTRACTION age 17 Patient [...] total) by mouth 2 (two) times a day. 180 tablet 1 metFORMIN (GLUCOPHAGE-XR) 500 MG [...] for 7 days . 10 mL 0 [id number]-IL-[id number]-eth-lct-zegi oil 400 mcg-35 mg -25 mg-5 mg [...] pain- follow package instructions. FOLLOW UP WITH hse specialist as soon as possible REST AND HYDRATE WELL Instill medication as prescribed Can apply cool or warm compress over left eye as needed for comfort - no more then 15 min. At a time documented in this [id number] History of Present illness Narrative* Juani Husain CNP - 08/25/2021 10:02 AM EDT [facility] [address] [facility] [place] [facility] [id number] Patient Demographics: Nancy Matos [address] [facility] [address] (home) Date of : 1990 HPI WITH [...] Take by mouth ., Disp: , Rfl: [id number]-GZ-pl0-zxy-cch-hwuy oil 400 mcg-35 mg -25 mg-5 mg Chew, Chew and Swallow 1 tablet daily ., Disp: , Rfl: no.82/iron/folate no2 (TL FOLATE ORAL), Take 1,333 mcg by mouth Folic acid 800 mcg No iron., Disp: , Rfl: labetaloL (NORMODYNE) 100 MG [...] past medical history, past social history, past surgicalhistory and problem list. Past History Past Medical History: Diagnosis Date Allergy grass,ragweeds,dust mites,mold, dandilions Diabetes mellitus (HCC) Gestational Diabetes Hypertension 01/14/2020 Had Pre-eclampsia and BP never came back down Past Surgical History: Procedure Laterality Date SECTION, LOW TRANSVERSE 01/17/2020 scalp cysts removed SEPTO-NASAL RECONSTRUCTION N/A 07/18/2015 Procedure: SEPTO-NASAL RECONSTRUCTION W SMR TURINATES; Surgeon: Rober Castle MD; Location: [facility]; Service: WISDOM TOOTH EXTRACTION age 17 Current Outpatient Medications Medication Sig Dispense Refill cetirizine (ZYRTEC) 10 MG tablet Take 10 mg by mouth daily . metFORMIN (GLUCOPHAGE-XR) 500 MG 24 hr tablet norethindrone (MICRONOR) 0.35 mg tablet nut.tx.comp. immune systm,reg (NUT.TX.COMP. IMMUNE SYSTM,PLUS ORAL) Take by mouth . NAC77-JZ-vz2-prh-rja-pjyh oil 400 mcg-35 mg -25 mg-5 mg Chew Chew and Swallow 1 tablet daily . no.82/iron/folate no2 (TL FOLATE ORAL) Take 1,333 mcg by mouth Folic acid 800 mcg No iron . labetaloL (NORMODYNE) 100 MG tablet Take 1 (one) tablet (100 mg total) by mouth 2 (two) times a day. 180 tablet 1 No current facility-administered medications [...] distention, abdominal pain, anal bleeding, blood in stool,constipation, diarrhea, nausea and vomiting. Endocrine: Negative. Negative [...] or At-Risk Aged Out Health Maintenance Review Juani Husain CNP Depression Screening 08/25/2021 Little interest or pleasure in doing things 0 Feeling down, depressed, or hopeless 0 PHQ-2 Total Score 0 documented in this [id number] Telephone encounter Note* Telephone Encounter - Elisa Sloan LPN - 07/28/2021 8:54 AM EDT Last OV 06/28/21, next OV 07/31/21 [id number] Telephone encounter Note* Telephone Encounter - Elisa Solan LPN - 07/28/2021 8:54 AM EDT Here are my blood pressures from the last two weeks. I didn't have my list with me some days to write down what it was but on the days I didn't write down the blood pressures they were similar to other days. I have not had any really high or low blood pressure readings. I am almost out of [place] will need to pepper picker a refill today. [id number] Miscellaneous Notes* Telephone Encounter - Elisa Sloan LPN - 07/28/2021 8:54 AM EDT Last OV 06/28/21, next OV 07/31/21 * Telephone Encounter - Elisa Sloan LPN - 07/28/2021 8:54 AM EDT Here are my blood pressures from the last two weeks. I didn't have my list with me some days to write down what it was but on the days I didn't write down the blood pressures they were similar to other days. I have not had any really high or low blood pressure readings. I am almost out of [place] will need to pepper picker a refill today. documented in this [id number] NotePatient Outreach (NETNAV) SHAWNANANCY Barlow ([id number]) 1990 F Date Time Provider Department 10/05/20 [...] Care gap - annual visit Payer: Payor: [employer] / Plan: BLUE CARD PPO / Product [...] future healthcare decisions with a power of nitro worker, living will, or advance directives? Referrals: Message Sent to Practice: Navigation Signature: Eliza Gastelum October 05, 2020 9:50 AM Allergies As of Date: 10/05/2020 Noted Allergy Reaction ERTHROMYCIN (ERYTHROMYCIN) 04/17/2019 11 - Vomiting OMNICEF (CEFDINIR) 04/17/2019 10 - Anaphylaxis Comments: Throat swelled PENICILLINS 04/17/2019 2 - Rash VALIUM (DIAZEPAM) 04/17/2019 1 - Mental Status Change Comments: Panic attack VICODIN (HYDROCODONE-ACETAMINOPHE*04/17/2019 1 - Mental Status Change Comments: Hallucinates Date Reviewed: 04/17/2019 Reviewed by: Doris ([facility]) Podlogar - Fully Assessed Reason for [...] (None) Encounter Status:Closed by ELIZA GASTELUM on 10/05/20[facility] 10-05-2020 NoteHNO ID: [id number] Author: Eliza Gastelum Service: ? Author Type: [...] future healthcare decisions with a power of nitro worker, living will, or advance directives? Referrals: Message Sent to Practice: Navigation Signature: Eliza Gastelum October 05, 2020 9:50 [facility] note* Diagnosis Hypertension, unspecified type- Primary Amenorrhea Absence of menstruation [facility], unspecified type [facility] Diagnosis Uses oral contraception- Primary Hypertension, unspecified type [facility] Diagnosis Abrasion of left cornea, initial encounter- Primary [facility] Diagnosis Urinary frequency- Primary Suspected UTI [facility] Diagnosis Suspected UTI- Primary [facility] Diagnosis Hypertension, unspecified type [facility] Diagnosis Wellness examination- Primary Scalp cyst Sebaceous cyst Hypertension, unspecified type [facility] Diagnosis EIC (epidermal inclusion cyst)- Primary Sebaceous cyst Pilar cyst of scalp [facility] Diagnosis Pilar cyst of scalp- Primary Skin tenderness Disturbance of skin sensation [facility] Diagnosis Scar- Primary Scar condition and fibrosis of skin [facility] noteNo assessment information [facility] Work Phone: Evaluation note* Diagnosis Onset Date Resolution Status Influenza vaccine administered acute Hypertension chronic PCOS (polycystic ovarian syndrome) chronic History of gestational diabetes acute History of pre-eclampsia in prior , currently acute Obesity affecting acute acute Supervision of high-risk acute Hypertension chronic PCOS (polycystic ovarian syndrome) chronic History of gestational diabetes acute History of pre-eclampsia in prior , currently acute Influenza vaccine administered acute Insulin resistance acute Obesity affecting acute acute Hypertension chronic PCOS (polycystic ovarian syndrome) chronic [facility] Work Phone: evaluation note* Diagnosis Onset Date Resolution Status History of pre-eclampsia in prior , currently acute Obesity affecting acute acute Hypertension chronic History of gestational diabetes resolved Influenza vaccine administered resolved Insulin resistance resolved PCOS (polycystic ovarian syndrome) resolved History of acute History of pre-eclampsia in prior , currently acute History of prior with IUGR 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 Obesity affecting acute acute Supervision of high-risk acute Hypertension chronic History of gestational diabetes resolved Insulin resistance resolved PCOS (polycystic ovarian syndrome) resolved History of acute History of pre-eclampsia in prior , currently acute History of prior with IUGR 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 Obesity affecting acute acute Supervision of high-risk acute Hypertension chronic History of gestational diabetes resolved Insulin resistance resolved PCOS (polycystic ovarian syndrome) resolved 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 History of acute History of pre-eclampsia in prior , currently acute History of prior with IUGR 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 Obesity affecting acute acute Supervision of high-risk acute Hypertension chronic PCOS (polycystic ovarian syndrome) resolved [facility] Work Phone: Evaluation note* Diagnosis Onset Date Resolution Status History of acute History of pre-eclampsia in prior , currently acute History of prior with IUGR 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 Obesity affecting acute acute Supervision of high-risk acute Hypertension chronic History of gestational diabetes resolved Insulin resistance resolved PCOS (polycystic ovarian syndrome) resolved History of acute History of pre-eclampsia in prior , currently acute History of prior with IUGR 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 Obesity affecting acute acute Supervision of high-risk acute Hypertension chronic History of gestational diabetes resolved Insulin resistance resolved PCOS (polycystic ovarian syndrome) resolved 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 History of acute History of pre-eclampsia in prior , currently acute History of prior with IUGR 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 Obesity affecting acute acute Supervision of high-risk acute Hypertension chronic PCOS (polycystic ovarian syndrome) resolved [facility] Work Phone: Evaluation note* Diagnosis Onset Date Resolution Status History of acute History of pre-eclampsia in prior , currently acute History of prior with IUGR 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 Obesity affecting acute acute Supervision of high-risk acute Hypertension chronic History of gestational diabetes resolved Insulin resistance resolved PCOS (polycystic ovarian syndrome) resolved History of acute History of pre-eclampsia in prior , currently acute History of prior with IUGR 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 Obesity affecting acute acute Supervision of high-risk acute Hypertension chronic History of gestational diabetes resolved Insulin resistance resolved PCOS (polycystic ovarian syndrome) resolved 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 History of acute History of pre-eclampsia in prior , currently acute History of prior with IUGR 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 Obesity affecting acute acute Supervision of high-risk acute Hypertension chronic PCOS (polycystic ovarian syndrome) resolved History of acute History of pre-eclampsia in prior , currently acute History of prior with IUGR 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 Obesity affecting acute acute Supervision of high-risk acute Hypertension chronic [facility] Work Phone: Evaluation note* Diagnosis Onset Date Resolution Status History of acute History of pre-eclampsia in prior , currently acute History of prior with IUGR 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 Obesity affecting acute acute Supervision of high-risk acute Hypertension chronic History of gestational diabetes resolved Insulin resistance resolved PCOS (polycystic ovarian syndrome) resolved 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 History of acute History of pre-eclampsia in prior , currently acute History of prior with IUGR 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 Obesity affecting acute acute Supervision of high-risk acute Hypertension chronic PCOS (polycystic ovarian syndrome) resolved History of acute History of pre-eclampsia in prior , currently acute History of prior with IUGR 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 Obesity affecting acute acute Supervision of high-risk acute Hypertension chronic History of acute History of pre-eclampsia in prior , currently acute History of prior with IUGR 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 Obesity affecting acute acute Supervision of high-risk acute Hypertension chronic Trauma during reso lved History of acute History of pre-eclampsia in prior , currently acute History of prior with IUGR 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 Obesity affecting acute acute Supervision of high-risk acute Hypertension chronic History of acute History of pre-eclampsia in prior , currently acute History of prior with IUGR 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 Obesity affecting acute acute Supervision of high-risk acute Hypertension chronic [facility] Work Phone: Evaluation note* Diagnosis Onset Date Resolution Status History of acute History of pre-eclampsia in prior , currently acute History of prior with IUGR 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 Obesity affecting acute acute Supervision of high-risk acute Hypertension chronic History of gestational diabetes resolved Insulin resistance resolved PCOS (polycystic ovarian syndrome) resolved 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 History of acute History of pre-eclampsia in prior , currently acute History of prior with IUGR 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 Obesity affecting acute acute Supervision of high-risk acute Hypertension chronic PCOS (polycystic ovarian syndrome) resolved History of acute History of pre-eclampsia in prior , currently acute History of prior with IUGR 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 Obesity affecting acute acute Supervision of high-risk acute Hypertension chronic History of acute History of pre-eclampsia in prior , currently acute History of prior with IUGR 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 Obesity affecting acute acute Supervision of high-risk acute Hypertension chronic Trauma during reso lved History of acute History of pre-eclampsia in prior , currently acute History of prior with IUGR 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 Obesity affecting acute acute Supervision of high-risk acute Hypertension chronic History of acute History of pre-eclampsia in prior , currently acute History of prior with IUGR 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 Obesity affecting acute acute Supervision of high-risk acute Hypertension chronic History of acute History of pre-eclampsia in prior , currently acute History of prior with IUGR 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 Obesity affecting acute acute Supervision of high-risk acute Hypertension chronic uterine contractions acute UTI (urinary tract infection) during acute [facility] Work Phone: Evaluation note* Diagnosis Onset Date Resolution Status History of acute History of pre-eclampsia in prior , currently acute History of prior with IUGR 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 Obesity affecting acute acute Supervision of high-risk acute Hypertension chronic History of gestational diabetes resolved Insulin resistance resolved PCOS (polycystic ovarian syndrome) resolved 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 History of acute History of pre-eclampsia in prior , currently acute History of prior with IUGR 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 Obesity affecting acute acute Supervision of high-risk acute Hypertension chronic PCOS (polycystic ovarian syndrome) resolved History of acute History of pre-eclampsia in prior , currently acute History of prior with IUGR 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 Obesity affecting acute acute Supervision of high-risk acute Hypertension chronic History of acute History of pre-eclampsia in prior , currently acute History of prior with IUGR 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 Obesity affecting acute acute Supervision of high-risk acute Hypertension chronic Trauma during reso lved History of acute History of pre-eclampsia in prior , currently acute History of prior with IUGR 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 Obesity affecting acute acute Supervision of high-risk acute Hypertension chronic History of acute History of pre-eclampsia in prior , currently acute History of prior with IUGR 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 Obesity affecting acute acute Supervision of high-risk acute Hypertension chronic History of acute History of pre-eclampsia in prior , currently acute History of prior with IUGR 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 Obesity affecting acute acute Supervision of high-risk acute Hypertension chronic uterine contractions acute UTI (urinary tract infection) during acute History of acute History of pre-eclampsia in prior , currently acute History of prior with IUGR 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 Nausea and vomiting during acute Obesity affecting acute acute uterine contractions acute Supervision of high-risk acute UTI (urinary tract infection) during acute Hypertension chronic [facility] Work Phone: Evaluation note* Diagnosis Onset Date Resolution Status History of acute History of pre-eclampsia in prior , currently acute History of prior with IUGR 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 Obesity affecting acute acute Supervision of high-risk acute Hypertension chronic PCOS (polycystic ovarian syndrome) resolved History of acute History of pre-eclampsia in prior , currently acute History of prior with IUGR 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 Obesity affecting acute acute Supervision of high-risk acute Hypertension chronic History of acute History of pre-eclampsia in prior , currently acute History of prior with IUGR 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 Obesity affecting acute acute Supervision of high-risk acute Hypertension chronic Trauma during reso lved History of acute History of pre-eclampsia in prior , currently acute History of prior with IUGR 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 Obesity affecting acute acute Supervision of high-risk acute Hypertension chronic History of acute History of pre-eclampsia in prior , currently acute History of prior with IUGR 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 Obesity affecting acute acute Supervision of high-risk acute Hypertension chronic History of acute History of pre-eclampsia in prior , currently acute History of prior with IUGR 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 Obesity affecting acute acute Supervision of high-risk acute Hypertension chronic uterine contractions acute UTI (urinary tract infection) during acute History of acute History of pre-eclampsia in prior , currently acute History of prior with IUGR 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 Nausea and vomiting during acute Obesity affecting acute acute uterine contractions acute Supervision of high-risk acute UTI (urinary tract infection) during acute Hypertension chronic History of acute History of pre-eclampsia in prior , currently acute History of prior with IUGR 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 Nausea and vomiting during acute Obesity affecting acute acute uterine contractions acute Supervision of high-risk acute UTI (urinary tract infection) during acute Hypertension chronic History of acute History of pre-eclampsia in prior , currently acute History of prior with IUGR 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 Obesity affecting acute acute uterine contractions acute Supervision of high-risk acute UTI (urinary tract infection) during acute Hypertension chronic [facility] Work Phone: Evaluation note* Diagnosis Onset Date Resolution Status 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 Hypertension chronic History of resolve d History of pre-eclampsia in prior , currently resolved History of prior with IUGR resolved Obesity affecting resolved PCOS (polycystic ovarian syndrome) resolved resolved Supervision of high-risk resolved 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 Hypertension chronic History of resolve d History of pre-eclampsia in prior , currently resolved History of prior with IUGR resolved Obesity affecting resolved resolved Supervision of high-risk resolved 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 Hypertension chronic History of resolve d History of pre-eclampsia in prior , currently resolved History of prior with IUGR resolved Obesity affecting resolved resolved Supervision of high-risk resolved Trauma during reso lved 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 Hypertension chronic History of resolve d History of pre-eclampsia in prior , currently resolved History of prior with IUGR resolved Obesity affecting resolved resolved Supervision of high-risk resolved 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 Hypertension chronic History of resolve d History of pre-eclampsia in prior , currently resolved History of prior with IUGR resolved Obesity affecting resolved resolved Supervision of high-risk resolved 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 Hypertension chronic History of resolve d History of pre-eclampsia in prior , currently resolved History of prior with IUGR resolved Obesity affecting resolved resolved Supervision of high-risk resolved uterine contractions resolved UTI (urinary tract infection) during resolved 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 Hypertension chronic History of resolve d History of pre-eclampsia in prior , currently resolved History of prior with IUGR resolved Nausea and vomiting during resolved Obesity affecting resolved resolved uterine contractions resolved Supervision of high-risk resolved UTI (urinary tract infection) during resolved 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 Hypertension chronic History of resolve d History of pre-eclampsia in prior , currently resolved History of prior with IUGR resolved Nausea and vomiting during resolved Obesity affecting resolved resolved uterine contractions resolved Supervision of high-risk resolved UTI (urinary tract infection) during resolved 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 Hypertension chronic History of resolve d History of pre-eclampsia in prior , currently resolved History of prior with IUGR resolved Obesity affecting resolved resolved uterine contractions resolved Supervision of high-risk resolved UTI (urinary tract infection) during resolved GBS (group B Streptococcus c arrier), +RV culture, currently 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 Hypertension chronic History of resolve d History of pre-eclampsia in prior , currently resolved History of prior with IUGR resolved Obesity affecting resolved resolved Supervision of high-risk resolved delivery delivered acute GBS (group B Streptococcus c arrier), +RV culture, currently 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 Hypertension chronic History of resolve d History of pre-eclampsia in prior , currently resolved History of prior with IUGR resolved Nausea and vomiting during resolved Obesity affecting resolved resolved uterine contractions resolved Supervision of high-risk resolved UTI (urinary tract infection) during resolved [facility] Work Phone: Hospital Discharge instructionsAmbulatory Orders* Nutrition Referral Location: None [facility] Work Phone: Progress note Author Lucille Gaytan [facility] June 18, 2023 8:18pm Note Date/Time June 18, 2023 8:13 pm [facility] Medical Records Department [address] [place] [address] OB Triage Progress Note 06/18/232010 MR#: [id number] Acct: [id number] Name: NANCY MATOS Rep #:[id number] : 1990 32 From: Lucille Gaytan CNM PCP: Care Physician,No Primary Status :REG CLI Y DOS: Location: [place] [address] Progress Notes Date of Service: 06/18/23 Progress Note: Patient presents for triage evaluation secondary to elevated bps at home and visual changes FHT: 140 Moderate variability reactive no decelerations category I tracing Mora: irregular Contractions Assessment and plan: Normal Pre E labs, FFN neg, Reactive NST, reassuring maternal and status patient discharged to home to follow-up in office on saturday with SM. See problem list details for additional plan information. Laboratory Studies: Laboratory Tests 06/18/23 06/18/23 06/18/23 Range/Units 18:43 18:25 18:05 WBC 11.5 H (4.4-11.0) K/mm3 RBC 5.01 (4.2-5.4) M/mm3 Hgb 13.0 (12.0-15.0) g/dL Hct 39.4 (37-47) % MCV 78.6 L (81-99) fL MCH 25.9 L (27.0-32.0) pg MCHC 33.0 (32-36) g/dL RDW Std Deviation 38.4 (35.1-43.9) fl RDW Coeff of Edward 13.5 (11.6-14.6) % Plt Count 234 (150-450) K/mm3 MPV 10.2 (6.2-12.0) fl Fibrinogen 510 H (203-444) mg/dl Creatinine 0.54 L (0.55-1.02) mg/dL Est GFR (MDRD) Af Amer 167 (>60) mL/min Est GFR (MDRD) Non-Af 138 (>60) mL/min Uric Acid 5.6 (2.6-6.0) mg/dL AST 13 L (15-37) U/L ALT 20 (13-56) U/L Urine Color Yellow (Yellow) Urine Clarity Sl. Cloudy (Clear) Urine pH 7.0 (5.0 - 8.0) Ur Specific [place] 1.010 (1.002-1.030) Urine Protein Negative (Negative) mg/dl Urine Glucose (UA) Normal (Normal) mg/dl Urine Ketones 50 H (Negative) mg/dl Urine Occult Blood Negative (Negative) /ul Urine Nitrite Negative (Negative) Urine Bilirubin Negative (Negative) mg/dL Urine Urobilinogen Normal (Normal) mg/dl Ur Leukocyte Esterase 100 H (Negative) /ul Urine RBC 0 SEEN (0-5) /hpf Urine WBC 0-5 SEEN (0-5) /hpf Ur Squamous Epith Cells 5-10 SEEN (5-10) /hpf Urine Bacteria 0 SEEN (None Seen) /hpf Urine Mucus 0 SEEN (<or=2+) /hpf U Random Total Protein 18.4 H (<11.9) mg/dL Urine Creatinine 63.70 (NO RANGE EST.) mg/dL Protein/Creatinin Ratio 289 H (0-200) mg/g CRE Fibronectin Negative Charges/Coding Multi Select Codes Urinary/Genital Urinary/Genital CPT Codes: 27062-25 non-stress test Interp Assessment & Plan (1) UTI (urinary tract infection) during : PLAN: treat based on sx and elevated leuks. macrobid follow up saturday (2) uterine contractions: COMMENT: ffn neg, closed cervical exam PLAN: IV fluid bolus resolving ctx probable UTI-start treatment FFN neg-closed cervical exam Continue to push fluids follow up with on saturday06/18/232017 <Electronically signed by Lucille bustillo CNM> Date _ Lucille Grewaligntucker Signature (if applicable): Date CC: EDGARCathie Gaytan; No Primary Care Physician ~ Signed [facility] Work Phone: Reason for referral (narrative)No reason for referral information [facility]WSouthwest [facility] Work Phone: Assessments Diagnosis Allergic dermatitis of upper and lower lids of both eyes - Primary Diagnosis Acute vaginitis - Primary Unspecified vaginitis and vulvovaginitis Diagnosis Sinusitis, unspecified chronicity, unspecified location- Primary Diagnosis S/P primary low transverse delivery, without mention of indication, unspecified as to episode of care Preeclampsia, third trimester Instructions * Patient Instructions - Samantha Watson, CHECK TOTALER - 09/17/2017 8:06 PM EDT Formatting of this note may be different from the original. Candidiasis: Care Instructions Your Care Instructions Candidiasis (say rzo-iwk-MH-uh-jennifer) is a yeast infection. Yeast normally lives [...] Log into your personal health record on [email or web address] and enter N733 in the Education box to learn more about Candidiasis: Care Instructions. Current as of: December 14, 2016 Content Version: [id number] [employer]. Care instructions adapted under license by your healthcare professional. If you have questions about a medical condition or this instruction, always ask your healthcare professional. [employer] disclaims any warranty or liability for your use of this information. in this encounter* Patient Instructions* Sabino Milton CNP - 01/13/2019 9:34 AM EST Plan: Zithromax [...] care for yourself at home? Take an zjhs-ala-ksewcss pain medicine, such as acetaminophen (Tylenol), ibuprofen (Advil, Motrin),or naproxen (Aleve). Read and follow all instructions on the label. If the doctor prescribed antibiotics, take them as directed. Do not stop taking them just because you feel better. You need to take the full course of antibiotics. Be careful when taking kexa-dza-gghpsqx cold or flu medicines and Tylenol at [...] Log into your personal health record on [email or web address] and enter I933 in the Education box to learn more about Sinusitis: Care Instructions. Current as of: December 29, 2017 Content Version: [id number] [employer]. Care instructions adapted under license by your healthcare professional. If you have questions about a medical condition or this instruction, always ask your healthcare professional. [employer] disclaims any warranty or liability for your use of this information. documented in this encounter Summary Purpose Family History No Family History Records Found Relationship Condition Age at Onset Recorded Date/T ciara father Hypertension Unknown mother Diabetes mellitus Unknown grandfather Malignant neoplasm Unknown grandmother Transient ischemic attack Unknown grandfather Cardiac disease Unknown Myocardial infarction Unknown grandmother Rheumatoid arteritis Unknown Fibromyalgia Unknown aunt HELLP (hemolytic ane salvador/elev liver enzymes/low platelets in ) Unknown Not Specified Pre-eclampsia Unknown Relationship Condition Age at Onset Recorded Date/T ciara father Hypertension Unknown mother Diabetes mellitus Unknown grandfather Malignant neoplasm Unknown grandmother Transient ischemic attack Unknown grandfather Cardiac disease Unknown Myocardial infarction Unknown grandmother Rheumatoid arteritis Unknown Fibromyalgia Unknown aunt HELLP (hemolytic ane salvador/elev liver enzymes/low platelets in ) Unknown Not Specified Pre-eclampsia Unknown sister Hemorrhagic disorder 21 Relationship Condition Age at Onset Recorded Date/T ciara father Hypertension Unknown mother Diabetes mellitus Unknown grandfather Malignant neoplasm Unknown grandmother Transient ischemic attack Unknown grandfather Cardiac disease Unknown Myocardial infarction Unknown grandmother Rheumatoid arteritis Unknown Fibromyalgia Unknown aunt HELLP (hemolytic ane salvador/elev liver enzymes/low platelets in ) Unknown unrelated friend Pre-eclampsia Unknown sister Hemorrhagic disorder 21 Relationship Condition Age at Onset Recorded Date/T ciara father Hypertension Unknown Celiac disease Unknown mother Prediabetes Unknown grandfather Malignant neoplasm of prostate Unknown Malignant neoplasm Unknown grandmother Transient ischemic attack Unknown grandfather Cardiac disease Unknown Myocardial infarction Unknown grandmother Fibromyalgia Unknown Rheumatoid arthritis Unknown aunt HELLP (hemolytic ane salvador/elev liver enzymes/low platelets in ) Unknown unrelated friend Pre-eclampsia Unknown sister Hemorrhagic disorder 21 Asthma Unknown brother Asthma Unknown daughter Tracheoesophageal fistula Unknown Dermatitis Unknown Monoallelic mutation of GDF1 gene Unknown Gastroesophageal reflux disease Unknown Advance Directives No Advanced Directives Records FoundDocuments on File Type Date Recorded 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 No July 22, 2024 9:53am History of Present Illness * Sabino Milton CNP - 01/13/2019 9:24 AM EST PATIENT NAME: Nancy Pandya Shawna [facility] [address] [place] [address], [address] [facility] [id number] : 1990 DATE OF VISIT: 01/13/2019 SS#: [id number] PROVIDER: Sabino Milton CNP Chief Complaint Patient presents with Sinus [...] file Gets together: Not on file Attends mandaen service: Not on file Active member of [...] visit. documented in this encounter* Katelin Travis, - 01/20/2020 6:10 AM EST POST OPERATIVE DAY # 3 Nancy Matos is a 29 y.o. female This [...] FVL+Prothrombin (heterozygous), Antithrombin III, APLS Assessment/Plan: 1. Nancy Matos is a POD # 3 s/p PLTCS 2/2 breech Care - Doing well, VSS - Female at [facility] - Contraception: Per private attending - Encourage [...] with more than 50% of the total qpqs-va-eehk time of the visit in counseling/coordination of [...] AM EST POST OPERATIVE DAY # 2 Nancy Matos is a 29 y.o. female This patient was seen & examined today. Her was complicated by: Patient Active Problem List Diagnosis Preeclampsia, third trimester S/P primary low transverse Today she is doing well without any chief complaint. Vital Signs: Vitals: 01/18/20 0348 01/18/20 0830 01/18/20 2008 01/18/20 2300 BP: (!) 131/92 (!) 130/90 (!) [...] FVL+Prothrombin (heterozygous), Antithrombin III, APLS Assessment/Plan: 1. Nancy Matos is a POD # 2 s/p PLTCS 2/2 breech Care - Doing well, VSS - Female at [facility] - Contraception: Per private attending - Encourage [...] she so chooses. Provider's Name: MD Elisa Aldana, DO 01/19/2020, 5:43 AM ATTENDING NOTE: I [...] spent counseling and coordinating care. * Katelin Travis, - 01/18/2020 6:16 AM EST POST DAY # 1 Nancy Matos is a 29 y.o. female This [...] 131/92 Pulse: 111 96 104 86 Resp: 18 16 Temp: 98.7 F (37.1 C) 98.4 F [...] FVL+Prothrombin (heterozygous), Antithrombin III, APLS Assessment/Plan: 1. Nancy Matos is a POD # 1 s/p PLTCS 2/2 Breech - Doing well, VSS - female - Encourage ambulation and use of incentive [...] - BG stable Provider's Name: MD Neymar Aldana DO 01/18/2020, 6:16 AM Attending Supervising Physician's Attestation Statement I performed a history and physical examination on the patient and discussed the management with theresident physician. I reviewed and agree with the findings and plan as documented in the note. Pt meeting postoperative milestones. Pain controlled. [facility] lip and palate, concern for CHD. Okay for Nancy to have pass to [facility] Fahad is having surgery today. Preeclampsia precautions reviewed I spent 15 minutes in the visit, with more than 50% of the total qsxk-qm-wplx time of the visit in counseling/coordination of care. * Margaux Hidalgo IBCLC - 01/17/2020 4:45 PM EST Pt pumping with hospital ameda pump upon entering the room. This is the patient's first baby. Baby was born at 37 weeks and at [facility] NICU. Pt is pumping at 57 suction [...] support and how to contact. Verbalizes understanding. * Juana Lugo RD, LD - 01/17/2020 3:47 PM EST Comprehensive Nutrition Assessment Type and Reason for Visit: Initial(lead technician referral for HTN) Nutrition Assessment: pt admitted for prepreeclampsia in the third trimester, pt is at 37w0d, pt underwent this morning, per MD pt is currently ordered a General Diet, if sodium restriction is desired in diet order to promote blood pressure control that can be added, will assign patient to a Level 1 and refer back to the lead technician for continued monitoring during admit, dietitianis available as needed per re-consult Current Nutrition Therapies: DIET GENERAL; Nutrition Interventions: Food and/or Nutrient Delivery: Continue Current Diet Coordination of Nutrition Care: Continue to monitor while inpatient(sign off to lead technician) Contact: pager x [phone] * Joce Adler DO - 01/17/2020 7:47 AM EST BSUS performed this AM. Fetus still breech, maternal R with anterior placenta. * Mary Loredo DO - 01/17/2020 6:31 AM EST Maternal Medicine Service Resident Progress Note 01/17/2020 6:31 AM 01/14/2020 Hospital Day: 4 Nancy Matos, 29 y.o. 37w0d Patient has been seen [...] Last Dose lactated ringers infusion Intravenous Continuous Eze Palmer, DO 100 mL/hr at 01/16/202357 cetirizine (ZYRTEC) tablet 10 mg 10 mg Oral Daily Joce Adler, DO 10 mg at 01/16/202055 sodium chloride flush 0.9 % injection 10 mL 10 mL Intravenous 2 times per day Karlos Varela MD 10 mL at 01/16/202056 sodium chloride flush 0.9 % injection 10 mL 10 mL Intravenous PRN Karlos Varela MD 10 mL at 01/16/20 172 acetaminophen (TYLENOL) tablet 650 mg 650 mg [...] MD 1 tablet at 01/15/20 0815 Assessment/Plan: Nancy Matos is a 29 y.o. 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 Mary Loredo DO 01/17/2020, 6:31 AM Associated attestation - Bishop Molina MD - 01/17/2020 4:51 PM EST MFM Patient having a today, see operative report Bishop Molina * Lyudmila May DTR - 01/16/2020 1:47 PM EST Nutrition rescreen completed. Patient referred to the Dietitian. * Neymar Justin DO - 01/16/2020 5:40 AM EST Maternal Medicine Service Resident Progress Note 01/16/2020 5:41 AM 01/14/2020 Hospital Day: 3 Nancy Shawna, 29 y.o. 36w6d Patient has been seen [...] injection 12 mg 12 mg Intramuscular Q24H Eze C Lamari, DO 12 mg at 01/15/20 1800 [START ON 01/17/2020] lactated ringers infusion Intravenous Continuous Eze Marifer Palmer, DO cetirizine (ZYRTEC) tablet 10 mg 10 mg Oral Daily Joce Serge Vitor, DO 10 mg at 01/15/20 2310 sodium [...] MD 1 tablet at 01/15/20 0815 Assessment/Plan: Nancy Matos is a 29 y.o. female 36w6d [...] DO 01/16/2020, 5:41 AM Associated attestation - Bishop Molina MD - 01/16/2020 8:42 PM EST [...] case with the residency staff and nursing Bishop Molina MD * Eze Palmer, - 01/15/2020 5:48 AM EST Maternal Medicine Service Resident Progress Note 01/15/2020 5:48 AM 01/14/2020 Hospital Day: 2 Nancy Matos, 29 y.o. 36w5d Patient has been seen [...] mL/hr at 01/14/20 1820 125mL/hr at 01/14/20 1820 sodium chloride flush 0.9 % injection 10 [...] tablet Oral Daily Karlos Varela MD Assessment/Plan: Nancy Matos is a 29 y.o. female 36w5d [...] BMZ deferred Further plan pending d/w attending. Eze Palmer, 01/15/2020, 5:48 AM Associated attestation - Bishop Molina MD - 01/15/2020 4:20 PM EST [...] face of IUGR and anomalies. She and herdamiansband were both at the bedside and do [...] with everything related tothis . I offered [facility] [employer] services and they declined today and will [...] case with the residency staff and nursing Bishop Molina MD * Karlos Varela MD - 01/14/2020 4:22 PM EST Department of Obstetrics and Gynecology Labor and Delivery Triage Note CHIEF COMPLAINT: Elevated BP HISTORY OF PRESENT ILLNESS: The patient is a 29 y.o. 36w4d. OB History 1 Para Term AB Living SAB TAB Ectopic Molar Multiple Live Births Patient presents with a chief complaint as above. Pt sent from the [facility] office for severe range BP'stoday and 3+ protein in her urine. Pt states she had a mild CAMEJO yesterday that resolved on its own. Denies [...] eGFR >90.0 >60 mL/min EGFR IF NonAfrican Moroccan >90.0 >60 mL/min Calcium 8.7 8.4 - [...] Information for the patient's : Edouard Matos Nancy [[id number]] female Weight: 4 lb 3 oz (1.9 kg) Apgars: Information for the patient's : ShawnaEdouard [[id number]] One Minute : 8 Five Minute : 9 Course: Uncomplicated : Live female infant, at [facility] NICU Blood Type/Rh: A POS Antibody Screen: [...] as 8 weeks after delivery. Bleeding may pepper picker and then decrease again around 7-10 [...] have thoughts of harming yourself or your . If infant will not stop crying, contact another adult for help or place in their crib on their back and [...] avoid constipation you may take a mild cfsf-fzc-qcbbvfd stool softener (such as colace) as recommended [...] can increase risks of asthma and sudden infant syndrome. If you or someone around baby [...] positive or a Person Under Investigation (PUI) Hjquiv-cg-cwejt transmission of COVID-19 during is unlikely, but after a baby is susceptible to moskrq-xq-lnvddd spread. ? After your baby is born, [...] clean your hands with an alcohol-based hand cable strander that contains at least 60% alcohol. Clean your hands often ? Wash your hands often with soap and water for at least 20 seconds, especially after blowing your nose, coughing, or sneezing; going to the bathroom; and before eating or preparing food. If soap andwater are not readily available, use an alcohol-based hand cable strander with at least 60% alcohol, covering all [...] healthcare provider to call the local or [facility] health department. Persons who are placed under active monitoring or facilitated self- monitoring should follow instructions provided by their local health department or occupational health professionals, as appropriate. When working with your [facility] health department check their available hours. ? [...] isolation precautions should be made on a lyru-ic-dzty basis, in consultation with healthcare providers and [facility] health departments. Information on COVID-19 for ALL [...] respiratory tract signs and symptoms. Ways to [place] with Anxiety & Stress ? It is [...] an illness that was first found in [facility], in February 2019. It has since [...] seen in people before. This virus spreads wrvwcl-qg-yevorp through droplets from coughing and sneezing. It [...] water aren't available, use an alcohol-based hand cable strander. Call 911 anytime you think you may [...] as of: June 10, 2019 Content Version: 12.4 [employer]. Care instructions adapted under license by your healthcare professional. If you have questions about a medical condition or this instruction, always ask your healthcare professional. [employer], [facility] disclaims any warranty or liability for your use of this information. General Recommendations for Routine Cleaning and Disinfection of Households Community members can practice routine cleaning of frequently touched surfaces (for example: tables, doorknobs, light switches, handles, desks, toilets, faucets, sinks) with household behavior specialist and EPA-registered disinfectants that are appropriate for [...] appropriate. These supplies include tissues, paper towels, behavior specialist and EPA-registered disinfectants (see list link at [facility] website). ? If a separate bathroom is [...] be used for other purposes. Consult the banquet prep cook's instructions for cleaning and disinfection products used. [...] used if appropriate for the surface. Follow banquet prep cook's instructions for application and proper ventilation. Check [...] o Products with EPA-approved emerging viral pathogens [facility]-coordinated hlthpdf iconexternal icon are expected to be effective against COVID-19 based on data for harder to kill viruses. Follow the banquet prep cook's instructions for all cleaning and disinfection products (e.g., concentration, application method and contact time, etc.). Soft (porous) surfaces such as carpeted floor, rugs, and drapes Remove visible contamination if present and clean with appropriate behavior specialist indicated for use on these surfaces. After cleaning: Launder items as appropriate in accordance with the banquet prep cook's instructions. If possible, launder items using the [...] items as appropriate in accordance with the banquet prep cook's instructions. If possible, launder items using the warmest appropriate water setting for the items and dry items completely. Dirtylaundry from an ill person can be washed with other people's items. o Clean and disinfect clothes hampers according to guidance above for surfaces. If possible, consider placing a baggage checker that is either disposable (can be thrown away) or can be laundered. CDC has a list of EPA approved cleaning products on their website - https://www.cdc.gov/coronavirus/ 2019-ncov/community/home/cleaning-disinfection.html https://www.[employer]/Gasfx-Mmtnvittbwt-Jucxskmz-Products-List.pdf documented in this encounter Reason for Referral Specialty Diagnoses / Procedures Referred By [place] rizo Referred To Contact Dermatology Diagnoses Scalp cyst Juani Husain, CHECK TOTALER [address] [place] [address] [facility] [place] [address] [place] [address] Referral ID Status Reason Start Date Expiration Date V isits Requested Visits Authorized [id number] Authorized 04/16/2022 04/16/2023 1 1 Chief Complaint and Reason for Visit Chief Complaint INT LABS Chief Complaint INT LABS VIABILITY UTI in SUPERVISON OF NORMAL NOB-LMP 10/10/22 11 WK OB Reason for Visit Influenza vaccine ad ministered Hypertension PCOS (polycystic ovarian syndrome) History of gestational diabetes History of pre-eclampsia in prior , currently Obesity affecting Supervision of high-risk Hypertension PCOS (polycystic ovarian syndrome) History of gestational diabetes History of pre-eclampsia in prior , currently Influenza vaccine administered Insulin resistance Obesity affecting Hypertension PCOS (polycystic ovarian syndrome) Chief Complaint 11 WK OB 15 WK OB 19 WK OB Gestational Diabetes 23 WK OB 27 WK OB E-ORDER Reason for Visit History of pre-eclam psia in prior , currently Obesity affecting Hypertension History of gestational diabetes Influenza vaccine administered Insulin resistance PCOS (polycystic ovarian syndrome) History of History of pre-eclampsia in prior , currently History of prior with IUGR Modified White class B pregestational diabetes mellitus Obesity affecting Supervision of high-risk Hypertension History of gestational diabetes Insulin resistance PCOS (polycystic ovarian syndrome) History of History of pre-eclampsia in prior , currently History of prior with IUGR Modified White class B pregestational diabetes mellitus Obesity affecting Supervision of high-risk Hypertension History of gestational diabetes Insulin resistance PCOS (polycystic ovarian syndrome) Modified White class B pregestational diabetes mellitus History of History of pre-eclampsia in prior , currently History of prior with IUGR Modified White class B pregestational diabetes mellitus Obesity affecting Supervision of high-risk Hypertension PCOS (polycystic ovarian syndrome) Chief Complaint 15 WK OB 19 WK OB Gestational Diabetes 23 WK OB 27 WK OB E-ORDER Reason for Visit History of History of pre-eclampsia in prior , currently History of prior with IUGR Modified White class B pregestational diabetes mellitus Obesity affecting Supervision of high-risk Hypertension History of gestational diabetes Insulin resistance PCOS (polycystic ovarian syndrome) History of History of pre-eclampsia in prior , currently History of prior with IUGR Modified White class B pregestational diabetes mellitus Obesity affecting Supervision of high-risk Hypertension History of gestational diabetes Insulin resistance PCOS (polycystic ovarian syndrome) Modified White class B pregestational diabetes mellitus History of History of pre-eclampsia in prior , currently History of prior with IUGR Modified White class B pregestational diabetes mellitus Obesity affecting Supervision of high-risk Hypertension PCOS (polycystic ovarian syndrome) Chief Complaint 15 WK OB 19 WK OB Gestational Diabetes 23 WK OB 27 WK OB E-ORDER 29 WK OB ABDOMINAL PAIN Reason for Visit History of History of pre-eclampsia in prior , currently History of prior with IUGR Modified White class B pregestational diabetes mellitus Obesity affecting Supervision of high-risk Hypertension History of gestational diabetes Insulin resistance PCOS (polycystic ovarian syndrome) History of History of pre-eclampsia in prior , currently History of prior with IUGR Modified White class B pregestational diabetes mellitus Obesity affecting Supervision of high-risk Hypertension History of gestational diabetes Insulin resistance PCOS (polycystic ovarian syndrome) Modified White class B pregestational diabetes mellitus History of History of pre-eclampsia in prior , currently History of prior with IUGR Modified White class B pregestational diabetes mellitus Obesity affecting Supervision of high-risk Hypertension PCOS (polycystic ovarian syndrome) History of History of pre-eclampsia in prior , currently History of prior with IUGR Modified White class B pregestational diabetes mellitus Obesity affecting Supervision of high-risk Hypertension Chief Complaint 19 WK OB Gestational Diabetes 23 WK OB 27 WK OB E-ORDER 29 WK OB ABDOMINAL PAIN ABDOMINAL PAIN 31 WK OB *SM c/sec 32 WK OB/NST *SM c/sec GESTIATIONAL DIABETES Reason for Visit History of History of pre-eclampsia in prior , currently History of prior with IUGR Modified White class B pregestational diabetes mellitus Obesity affecting Supervision of high-risk Hypertension History of gestational diabetes Insulin resistance PCOS (polycystic ovarian syndrome) Modified White class B pregestational diabetes mellitus History of History of pre-eclampsia in prior , currently History of prior with IUGR Modified White class B pregestational diabetes mellitus Obesity affecting Supervision of high-risk Hypertension PCOS (polycystic ovarian syndrome) History of History of pre-eclampsia in prior , currently History of prior with IUGR Modified White class B pregestational diabetes mellitus Obesity affecting Supervision of high-risk Hypertension History of History of pre-eclampsia in prior , currently History of prior with IUGR Modified White class B pregestational diabetes mellitus Obesity affecting Supervision of high-risk Hypertension Trauma during History of History of pre-eclampsia in prior , currently History of prior with IUGR Modified White class B pregestational diabetes mellitus Obesity affecting Supervision of high-risk Hypertension History of History of pre-eclampsia in prior , currently History of prior with IUGR Modified White class B pregestational diabetes mellitus Obesity affecting Supervision of high-risk Hypertension Chief Complaint 19 WK OB Gestational Diabetes 23 WK OB 27 WK OB E-ORDER 29 WK OB ABDOMINAL PAIN ABDOMINAL PAIN 31 WK OB *SM c/sec 32 WK OB/NST *SM c/sec GESTIATIONAL DIABETES 33 WK OB/NST *SM c/sec E-ORDER R/O PRE E R/O PRE E Reason for Visit History of History of pre-eclampsia in prior , currently History of prior with IUGR Modified White class B pregestational diabetes mellitus Obesity affecting Supervision of high-risk Hypertension History of gestational diabetes Insulin resistance PCOS (polycystic ovarian syndrome) Modified White class B pregestational diabetes mellitus History of History of pre-eclampsia in prior , currently History of prior with IUGR Modified White class B pregestational diabetes mellitus Obesity affecting Supervision of high-risk Hypertension PCOS (polycystic ovarian syndrome) History of History of pre-eclampsia in prior , currently History of prior with IUGR Modified White class B pregestational diabetes mellitus Obesity affecting Supervision of high-risk Hypertension History of History of pre-eclampsia in prior , currently History of prior with IUGR Modified White class B pregestational diabetes mellitus Obesity affecting Supervision of high-risk Hypertension Trauma during History of History of pre-eclampsia in prior , currently History of prior with IUGR Modified White class B pregestational diabetes mellitus Obesity affecting Supervision of high-risk Hypertension History of History of pre-eclampsia in prior , currently History of prior with IUGR Modified White class B pregestational diabetes mellitus Obesity affecting Supervision of high-risk Hypertension History of History of pre-eclampsia in prior , currently History of prior with IUGR Modified White class B pregestational diabetes mellitus Obesity affecting Supervision of high-risk Hypertension uterine contractions UTI (urinary tract infection) during Chief Complaint 19 WK OB Gestational Diabetes 23 WK OB 27 WK OB E-ORDER 29 WK OB ABDOMINAL PAIN ABDOMINAL PAIN 31 WK OB *SM c/sec 32 WK OB/NST *SM c/sec GESTIATIONAL DIABETES 33 WK OB/NST *SM c/sec E-ORDER R/O PRE E R/O PRE E 34 WK OB/NST *SM c/sec Reason for Visit History of History of pre-eclampsia in prior , currently History of prior with IUGR Modified White class B pregestational diabetes mellitus Obesity affecting Supervision of high-risk Hypertension History of gestational diabetes Insulin resistance PCOS (polycystic ovarian syndrome) Modified White class B pregestational diabetes mellitus History of History of pre-eclampsia in prior , currently History of prior with IUGR Modified White class B pregestational diabetes mellitus Obesity affecting Supervision of high-risk Hypertension PCOS (polycystic ovarian syndrome) History of History of pre-eclampsia in prior , currently History of prior with IUGR Modified White class B pregestational diabetes mellitus Obesity affecting Supervision of high-risk Hypertension History of History of pre-eclampsia in prior , currently History of prior with IUGR Modified White class B pregestational diabetes mellitus Obesity affecting Supervision of high-risk Hypertension Trauma during History of History of pre-eclampsia in prior , currently History of prior with IUGR Modified White class B pregestational diabetes mellitus Obesity affecting Supervision of high-risk Hypertension History of History of pre-eclampsia in prior , currently History of prior with IUGR Modified White class B pregestational diabetes mellitus Obesity affecting Supervision of high-risk Hypertension History of History of pre-eclampsia in prior , currently History of prior with IUGR Modified White class B pregestational diabetes mellitus Obesity affecting Supervision of high-risk Hypertension uterine contractions UTI (urinary tract infection) during History of History of pre-eclampsia in prior , currently History of prior with IUGR Modified White class B pregestational diabetes mellitus Nausea and vomiting during Obesity affecting uterine contractions Supervision of high-risk UTI (urinary tract infection) during Hypertension Chief Complaint 23 WK OB 27 WK OB E-ORDER 29 WK OB ABDOMINAL PAIN ABDOMINAL PAIN 31 WK OB *SM c/sec 32 WK OB/NST *SM c/sec GESTIATIONAL DIABETES 33 WK OB/NST *SM c/sec E-ORDER R/O PRE E R/O PRE E 34 WK OB/NST *SM c/sec 35 WK OB/NST *SM c/sec 36 WK OB/NST *SM c/sec Reason for Visit History of History of pre-eclampsia in prior , currently History of prior with IUGR Modified White class B pregestational diabetes mellitus Obesity affecting Supervision of high-risk Hypertension PCOS (polycystic ovarian syndrome) History of History of pre-eclampsia in prior , currently History of prior with IUGR Modified White class B pregestational diabetes mellitus Obesity affecting Supervision of high-risk Hypertension History of History of pre-eclampsia in prior , currently History of prior with IUGR Modified White class B pregestational diabetes mellitus Obesity affecting Supervision of high-risk Hypertension Trauma during History of History of pre-eclampsia in prior , currently History of prior with IUGR Modified White class B pregestational diabetes mellitus Obesity affecting Supervision of high-risk Hypertension History of History of pre-eclampsia in prior , currently History of prior with IUGR Modified White class B pregestational diabetes mellitus Obesity affecting Supervision of high-risk Hypertension History of History of pre-eclampsia in prior , currently History of prior with IUGR Modified White class B pregestational diabetes mellitus Obesity affecting Supervision of high-risk Hypertension uterine contractions UTI (urinary tract infection) during History of History of pre-eclampsia in prior , currently History of prior with IUGR Modified White class B pregestational diabetes mellitus Nausea and vomiting during Obesity affecting uterine contractions Supervision of high-risk UTI (urinary tract infection) during Hypertension History of History of pre-eclampsia in prior , currently History of prior with IUGR Modified White class B pregestational diabetes mellitus Nausea and vomiting during Obesity affecting uterine contractions Supervision of high-risk UTI (urinary tract infection) during Hypertension History of History of pre-eclampsia in prior , currently History of prior with IUGR Modified White class B pregestational diabetes mellitus Obesity affecting uterine contractions Supervision of high-risk UTI (urinary tract infection) during Hypertension Chief Complaint 23 WK OB 27 WK OB E-ORDER 29 WK OB ABDOMINAL PAIN ABDOMINAL PAIN 31 WK OB *SM c/sec 32 WK OB/NST *SM c/sec GESTIATIONAL DIABETES 33 WK OB/NST *SM c/sec E-ORDER R/O PRE E R/O PRE E 34 WK OB/NST *SM c/sec 35 WK OB/NST *SM c/sec 36 WK OB/NST *SM c/sec 37 WK OB/NST *SM c/sec REPEAT REPEAT REPEAT Reason for Visit Modified White class B pregestational diabetes mellitus Hypertension History of History of pre-eclampsia in prior , currently History of prior with IUGR Obesity affecting PCOS (polycystic ovarian syndrome) Supervision of high-risk Modified White class B pregestational diabetes mellitus Hypertension History of History of pre-eclampsia in prior , currently History of prior with IUGR Obesity affecting Supervision of high-risk Modified White class B pregestational diabetes mellitus Hypertension History of History of pre-eclampsia in prior , currently History of prior with IUGR Obesity affecting Supervision of high-risk Trauma during Modified White class B pregestational diabetes mellitus Hypertension History of History of pre-eclampsia in prior , currently History of prior with IUGR Obesity affecting Supervision of high-risk Modified White class B pregestational diabetes mellitus Hypertension History of History of pre-eclampsia in prior , currently History of prior with IUGR Obesity affecting Supervision of high-risk Modified White class B pregestational diabetes mellitus Hypertension History of History of pre-eclampsia in prior , currently History of prior with IUGR Obesity affecting Supervision of high-risk uterine contractions UTI (urinary tract infection) during Modified White class B pregestational diabetes mellitus Hypertension History of History of pre-eclampsia in prior , currently History of prior with IUGR Nausea and vomiting during Obesity affecting uterine contractions Supervision of high-risk UTI (urinary tract infection) during Modified White class B pregestational diabetes mellitus Hypertension History of History of pre-eclampsia in prior , currently History of prior with IUGR Nausea and vomiting during Obesity affecting uterine contractions Supervision of high-risk UTI (urinary tract infection) during Modified White class B pregestational diabetes mellitus Hypertension History of History of pre-eclampsia in prior , currently History of prior with IUGR Obesity affecting uterine contractions Supervision of high-risk UTI (urinary tract infection) during GBS (group B Streptococcus carrier), +RV culture, currently Modified White class B pregestational diabetes mellitus Hypertension History of History of pre-eclampsia in prior , currently History of prior with IUGR Obesity affecting Supervision of high-risk delivery delivered GBS (group B Streptococcus carrier), +RV culture, currently Modified White class B pregestational diabetes mellitus Hypertension History of History of pre-eclampsia in prior , currently History of prior with IUGR Nausea and vomiting during Obesity affecting uterine contractions Supervision of high-risk UTI (urinary tract infection) during Chief Complaint Admit Date ACUTE MED FU-[facility] PT WANTS TO RE-EST [facility] April 10, 2024 10:25am L EAR PAIN/SINUS PRESSURE/DIZZINESS Oj h 2024 4:24pm vaginal bleeding July 22, 2024 9:36a m Reason for Visit Admit Date Obesity (BMI 30-39.9) April 10, 2024 10:25am PCOS (polycystic ovarian syndrome) Janua 2024 10:25am Hypertension April 10, 2024 1 0:25am Chief Complaint Admit Date ACUTE MED FU-SIDNEY PT WANTS TO RE-EST [facility] April 10, 2024 10:25am L EAR PAIN/SINUS PRESSURE/DIZZINESS Oj h 2024 4:24pm vaginal bleeding July 22, 2024 9:36a m ER FU- AUB *copay $30 August 07, 2024 2:0 5pm Chief Complaint Admit Date L EAR PAIN/SINUS PRESSURE/DIZZINESS Oj h 2024 4:24pm vaginal bleeding July 22, 2024 9:36a m ER FU- AUB *copay $August 07, 2024 2:0 5pm 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) September 02, 2024 8:22 am Reason for Visit Admit Date Menorrhagia August 07, 2024 2:05p m Modified White class B pregestational di abetes mellitus August 07, 2024 2:05pm Obesity (BMI 30-39.9) August 07, 2024 2:0 5pm Chief Complaint Admit Date L EAR PAIN/SINUS PRESSURE/DIZZINESS Oj h 2024 4:24pm vaginal bleeding July 22, 2024 9:36a m ER FU- AUB *copay $30 August 07, 2024 2:0 5pm 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) September 02, 2024 8:22 am 2 ORDERING 'S E-ORDER September 03, 2024 8:37am Reason for Visit Admit Date Menorrhagia August 07, 2024 2:05p m Modified White class B pregestational di abetes mellitus August 07, 2024 2:05pm Obesity (BMI 30-39.9) August 07, 2024 2:0 5pm Abnormal uterine bleeding September 02 8:22am Modified White class B pregestational di abetes mellitus September 02, 2024 8:22am Obesity (BMI 30-39.9) September 02, 2024 8: 22am Well woman exam with routine gynecologic al exam September 02, 2024 8:22am Hypertension September 02, 2024 8:22 am Chief Complaint Admit Date L EAR PAIN/SINUS PRESSURE/DIZZINESS Oj 2024 4:24pm vaginal bleeding July 22, 2024 9:36a m ER FU- AUB *copay $30 August 07, 2024 2:0 5pm 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) September 02, 2024 8:22 am 2 ORDERING 'S E-ORDER September 03, 2024 8:37am 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 YULISSA LOGAN-SIDNEY PT September 10, 2024 8:55 am Reason for Visit Admit Date Menorrhagia August 07, 2024 2:05p m Obesity (BMI 30-39.9) August 07, 2024 2:0 5pm Modified White class B pregestational di abetes mellitus August 07, 2024 2:05pm Abnormal uterine bleeding September 02 8:22am Obesity (BMI 30-39.9) September 02, 2024 8: 22am Hypertension September 02, 2024 8:22 am Well woman exam with routine gynecologic al exam September 02, 2024 8:22am Modified White class B pregestational di abetes mellitus September 02, 2024 8:22am Abnormal uterine bleeding September 10, 2024 8:55am PCOS (polycystic ovarian syndrome) September 10, 2024 8:55am Establishing care with new doctor, rene tubbs for September 10, 2024 8:55am Essential hypertension September 10, 2024 8: 55am Morbid obesity with body mas s index (BMI) of 45.0 to 49.9 in adult September 10, 2024 8:55am Chief Complaint Admit Date L EAR PAIN/SINUS PRESSURE/DIZZINESS Oj anderson 2024 4:24pm vaginal bleeding July 22, 2024 9:36a m ER FU- AUB *copay $30 August 07, 2024 2:0 5pm 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) September 02, 2024 8:22 am 2 ORDERING 'S E-ORDER September 03, 2024 8:37am 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 EST DOREEN-SIDNEY PT September 10, 2024 8:55 am EORDERS September 12, 2024 7:58a m Reason for Visit Admit Date Menorrhagia August 07, 2024 2:05p m Obesity (BMI 30-39.9) August 07, 2024 2:0 5pm Modified White class B pregestational di abetes mellitus August 07, 2024 2:05pm Abnormal uterine bleeding September 02 8:22am Obesity (BMI 30-39.9) September 02, 2024 8: 22am Hypertension September 02, 2024 8:22 am Well woman exam with routine gynecologic al exam September 02, 2024 8:22am Modified White class B pregestational di abetes mellitus September 02, 2024 8:22am Abnormal uterine bleeding September 10, 2024 8:55am PCOS (polycystic ovarian syndrome) September 10, 2024 8:55am Screening for depression September 10, 2024 8:55am Establishing care with new doctorrene nter for September 10, 2024 8:55am Stress at home September 10, 2024 8:55a m Essential hypertension September 10, 2024 8: 55am Morbid obesity with body mas s index (BMI) of 45.0 to 49.9 in adult September 10, 2024 8:55am Additional Source Comments INFORMATION SOURCE (unrecogn ized section and content) DATE CREATED AUTHOR 06/18/2018 [facility] DATE CREATED AUTHOR AUTHOR'S ORGANIZ ATION 01/27/2020 [facility] DATE CREATED AUTHOR AUTHOR'S ORGANIZ ATION 04/23/2021 [facility] DATE CREATED AUTHOR AUTHOR'S ORGANIZ ATION 09/10/2021 [facility] DATE CREATED AUTHOR AUTHOR'S ORGANIZ ATION 05/09/2022 [facility] DATE CREATED AUTHOR AUTHOR'S ORGANIZ ATION 07/25/2022 [facility] DATE CREATED AUTHOR AUTHOR'S ORGANIZ ATION 10/02/2023 [facility] DATE CREATED AUTHOR AUTHOR'S ORGANIZ ATION 12/10/2024 [facility] Reason for Visit (unrecogniz ed section and content) Reason Comments Sinus Problem found black mold und er stove x 5 days ago, now has sinus pressure, sore throat, ear pain onset x over a week ago, worsening. Reason Comments Hypertension Reason Comments Establish Care [...] Referred To Contact Dermatology Diagnoses Scalp cyst Juani Husain, CHECK TOTALER [address] [place] [address] [facility] [place] [address] [place] [address] Referral ID Status Reason Start Date Expiration Date Visits Re quested Visits Authorized [id number] Closed 04/16/2022 04/16/2023 1 1 Reason Onset Date Comments Medication Refill 06/19/2022 Reason Comments Suture / Staple Removal Addendum Note - Sabino Milton CNP - 01/13/2019 9:51 AM EST Miscellaneous Notes (unrecog nized section and content) Addended by: SABINO MILTON on: 01/13/2019 09:51 AM Modules accepted: Orders documented in this encounter Care Teams (unrecognized sec tion and content) In Home Sales Consultant Relationship Specialty Start Date End Date Juani Husain CNP PCP - General Nurse Practitioner 05/20/15 In Home Sales Consultant Relationship Specialty Start Date End Date Juani Husain CNP PCP - General Nurse Practitioner 05/20/15 In Home Sales Consultant Relationship Specialty Start Date End Date Juani Husain CNP PCP - General Nurse Practitioner 05/20/15 In Home Sales Consultant Relationship Specialty Start Date End Date Juani Husain CNP PCP - General Nurse Practitioner 05/20/15 In Home Sales Consultant Relationship Specialty Start Date End Date Juani Husain CNP PCP - General Nurse Practitioner 05/20/15 In Home Sales Consultant Relationship Specialty Start Date End Date Juani Husain CNP PCP - General Nurse Practitioner 05/20/15 Juani Husain CNP [address] [place] [address] PCP - VINOD Attributed Provider - MMO Commercial 06/10/19 03/10/50 In Home Sales Consultant Relationship Specialty Start Date End Date Juani Husain CNP PCP - General Nurse Practitioner 05/20/15 Juani Husain CNP [address] [place] [id number] PCP - VINOD Attributed Provider - MMO Commercial 06/10/19 03/10/50 In Home Sales Consultant Relationship Specialty Start Date End Date Juani Husain CNP PCP - General Nurse Practitioner 05/20/15 Juani Husain CNP [address] [place] [id number] PCP - VINOD Attributed Provider - MMO Commercial 06/10/19 03/10/50 In Home Sales Consultant Relationship Specialty Start Date End Date Juani Husain CNP PCP - General Nurse Practitioner 05/20/15 Juani Husain CNP [address] [place] [id number] PCP - VINOD Attributed Provider - MMO Commercial 06/10/19 03/10/50 In Home Sales Consultant Relationship Specialty Start Date End Date Juani Husain CNP PCP - General Nurse Practitioner 05/20/15 Juani Husain CNP [address] [place] [id number] PCP - VINOD Attributed Provider - MMO Commercial 06/10/19 03/10/50 In Home Sales Consultant Relationship Specialty Start Date End Date Juani HusainKRAIG PCP - General Nurse Practitioner 05/20/15 LishaJuani MarciaKRAIG luong [address] [place] [address] PCP - VINOD Attributed Provider - MMO Commercial 06/10/19 03/10/50 Team Status: Active Member Role Status Dates Dr. Valeria Aguilera MD Primary Care Provider Active Team Status: Inactive Member Role Status Dates Dr. Valeria Aguilera MD Primary Care Provider Active Queta Kohli CNM Attending Provider, Referring Pr ovider Active Team Status: Active Member Role Status Dates Dr. Valeria Aguilera MD Primary Care Provider Active Queta Kohli CNM Attending Provider, Referring Pr ovider Active Team Status: Active Member Role Status Dates No Primary Care Physician Primary Care Provider Active Team Status: Inactive Member Role Status Dates Queta Kohli CNM Attending Provider Active No Primary Care Physician Primary Care Provider, Refer ring Provider Active Team Status: Inactive Member Role Status Dates Dr. Valeria Aguilera MD Primary Care Provider, Refer ring Provider Active Dr. Elaina Castanon MD Attending Provider Active Team Status: Inactive Member Role Status Dates No Primary Care Physician Primary Care Provider, Refer ring Provider Active Dr. Crissy Mcneal DO Attending Provider Activ e Team Status: Inactive Member Role Status Dates Dr. Valeria Aguilera MD Primary Care Provider Active Dr. Elaina Castanon MD Attending Provider, Referr ing Provider Active Team Status: Inactive Member Role Status Dates No Primary Care Physician Primary Care Provider Active Queta Kohli CNM Attending Provider Active Team Status: Inactive Member Role Status Dates No Primary Care Physician Primary Care Provider Active Queta Kohli CNM Attending Provider, Referring Pr ovider Active Team Status: Inactive Member Role Status Dates No Primary Care Physician Primary Care Provider, Refer ring Provider Active Dr. Elaina Castanon MD Attending Provider Active Team Status: Inactive Member Role Status Dates No Primary Care Physician Primary Care Provider, Refer ring Provider Active Queta Kohli CNM Attending Provider Active Team Status: Inactive Member Role Status Dates No Primary Care Physician Primary Care Provider, Refer ring Provider Active Dr. Ian Mcdonald MD Attending Provider Active Team Status: Inactive Member Role Status Dates No Primary Care Physician Primary Care Provider Active Dr. Elaina Castanon MD Attending Provider, Referr ing Provider Active Team Status: Inactive Member Role Status Dates No Primary Care Physician Primary Care Provider Active Dr. Crissy Mcneal DO Attending Provider Activ e Team Status: Active Member Role Status Dates No Primary Care Physician Primary Care Provider Active Dr. Crissy Mcneal DO Attending Provider, Othe r Provider Active Team Status: Active Member Role Status Dates No Primary Care Physician Primary Care Provider Active Lucille Gaytan CNM Attending Provider, Referring Provider, Other Provider Active Team Status: Inactive Member Role Status Dates No Primary Care Physician Primary Care Provider Active Lucille Gaytan CNM Attending Provider, Referring Pro vider Active Team Status: Active Member Role Status Dates No Primary Care Physician Primary Care Provider Active Dr. Elaina Castanon MD Attending Provider, Referr ing Provider Active Team Status: Inactive Member Role Status Dates No Primary Care Physician Primary Care Provider, Refer ring Provider Active Coco Moore 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, 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-C Attending Provider Active Team Status: Inactive Member Role Status Dates No Primary Care Physician Primary Care Provider Active Coco Moore 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, 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-C Attending Provider, Referring Provider Active Team Status: Active Member Role Status Dates No Primary Care Physician Primary Care Provider Active Dr. Elaina Castanon MD Admit Provider, Other Prov ider Active Lucille Gaytan CNM Attending Provider Active Team Status: Active Member Role Status Dates No Primary Care Physician Primary Care Provider Active Dr. Elaina Castanon MD Admit Provid er, Attending Provider, Other Provider Active Team Status: Inactive Member Role Status Dates No Primary Care Physician Primary Care Provider Active Dr. Elaina Castanon MD Admit Provider, Attending Provider Active Team Status: Active Member Role Status Dates Dr. Marivel Danielson MD Primary Care Provider Active Team Status: Inactive Member Role Status Dates Sidney Jackson NP-C Referring Provider Active S tart: April 10, 2024 End: April 10, 2024 Jesse VANG, PA Attending Provider Active St art: April 10, 2024 End: April 10, 2024 Team Status: Inactive Member Role Status Dates Dr. Marivel Danielson MD Primary Care Provider Active Start: June 02, 2024 End: June 02, 2024 Dr. Marivel Danielson MD Referring Provider Active Start: June 02, 2024 End: June 02, 2024 CIERA Beal Attending Provider Active Start: June 02, 2024 End: June 02, 2024 Team Status: Inactive Member Role Status Dates Dr. Marivel Danielson MD Primary Care Provider Active Start: July 22, 2024 End: July 22, 2024 Dr. Abram Watters MD Emergency Provider Active Sta rt: July 22, 2024 End: July 22, 2024 Team Status: Inactive Member Role Status Dates Dr. Marivel Danielson MD Primary Care Provider Active Start: July 22, 2024 End: July 22, 2024 Dr. Abram Watters MD Attending Provider Active Sta rt: July 22, 2024 End: July 22, 2024 Dr. Abram Watters MD Emergency Provider Active Sta rt: July 22, 2024 End: July 22, 2024 Team Status: Inactive Member Role Status Dates Dr. Marivel Danielson MD Primary Care Provider Active Start: August 07, 2024 End: August 07, 2024 Dr. Marivel Danielson MD Referring Provider Active Start: August 07, 2024 End: August 07, 2024 Dr. Crissy Mcneal DO Attending Provider Activ e Start: August 07, 2024 End: August 07, 2024 Team Status: Inactive Member Role Status Dates JONAH Alaniz Referring Provider Active S tart: September 02, 2024 End: September 02, 2024 Dr. Crissy Mnceal DO Attending Provider Activ e Start: September 02, 2024 End: September 02, 2024 Dr. Marivel Danielson MD Primary Care Provider Active Start: September 02, 2024 End: September 02, 2024 Team Status: Active Member Role/Relationship Status Dates Dr. Marivel Danielson MD Primary Care Provider Active Team Status: Inactive Member Role/Relationship Status Dates Dr. Marivel Danielson MD Primary Care Provider Active Start: June 02, 2024 End: June 02, 2024 Dr. Marivel Danielson MD Referring Provider Active Start: June 02, 2024 End: June 02, 2024 Jordan VANG, PA Attending Provider Active Start: June 02, 2024 End: June 02, 2024 Team Status: Inactive Member Role/Relationship Status Dates Dr. Marivel Danielson MD Primary Care Provider Active Start: July 22, 2024 End: July 22, 2024 Dr. Abram Watters MD Attending Provider Active Sta rt: July 22, 2024 End: July 22, 2024 Dr. bAram Watters MD Emergency Provider Active Sta rt: July 22, 2024 End: July 22, 2024 Team Status: Inactive Member Role/Relationship Status Dates Dr. Marivel Danielson MD Primary Care Provider Active Start: August 07, 2024 End: August 07, 2024 Dr. Marivel Danielson MD Referring Provider Active Start: August 07, 2024 End: August 07, 2024 Dr. Crissy Mcneal DO Attending Provider Activ e Start: August 07, 2024 End: August 07, 2024 Team Status: Inactive Member Role/Relationship Status Dates JONAH Alaniz Referring Provider Active S tart: September 02, 2024 End: September 02, 2024 Dr. Crissy Mcneal DO Attending Provider Activ e Start: September 02, 2024 End: September 02, 2024 Dr. Marivel Danielson MD Primary Care Provider Active Start: September 02, 2024 End: September 02, 2024 Team Status: Inactive Member Role/Relationship Status Dates Dr. Marivel Danielson MD Primary Care Provider Active Start: September 03, 2024 End: September 03, 2024 Dr. Crissy Mcneal DO Attending Provider Activ e Start: September 03, 2024 End: September 03, 2024 Dr. Crissy Mcneal DO Referring Provider Activ e Start: September 03, 2024 End: September 03, 2024 Jesse VANG, PA Other Provider Active Start: September 03, 2024 End: September 03, 2024 Team Status: Inactive Member Role/Relationship Status Dates Dr. Marivel Danielson MD Primary Care Provider Active Start: September 10, 2024 End: September 10, 2024 Dr. Marivel Danielson MD Attending Provider Active Start: September 10, 2024 End: September 10, 2024 Dr. Marivel Danielson MD Referring Provider Active Start: September 10, 2024 End: September 10, 2024 Team Status: Inactive Member Role/Relationship Status Dates Dr. Marivel Danielson MD Primary Care Provider Active Start: September 12, 2024 End: September 12, 2024 Dr. Marivel Danielson MD Attending Provider Active Start: September 12, 2024 End: September 12, 2024 Dr. Marivel Danielson MD Referring Provider Active Start: September 12, 2024 End: September 12, 2024 Goals (unrecognized section and content) Goals may be documented in a n alternate sectionGoals may be documented in an alternate sectionGoals may be documented in an alternate sectionGoals may be documented in an alternate sectionGoals may be documented in an alternate sectionGoals may be documented in an alternate sectionGoals may be documented in an alternate sectionGoals may be documented in an alternate sectionGoals may be documented in an alternate sectionGoals may be documented in an alternate sectionGoals may be documented in an alternate sectionGoals may be documented in an alternate sectionGoals may be documented in an alternate sectionGoals may be documented in an alternate sectionGoals may be documented in an alternate sectionGoals may be documented in an alternate section FOR RECORDS PERTAINING TO PATIENTS WHO ARE [...] BE BASED ON THE PRIMARY CLINICAL RECORDS. [employer] provides no warranty or guarantee of the accuracy or completeness of information in this document.
== END | disposition home or self-care (01) ==
LOC: LABSPEC 11:53
PROVIDERS: PCP Internal Medicine; Visit Provider Obstetrics & Gynecology
DX: N93.9 Abnormal uterine and vaginal bleeding, unspecified (principal)
CPT/HCPCS: 88305

== ENCOUNTER 2025-03-02 05:33 | Day surgery (SDC) | payer OTHER, SELFPAY ==
[2025-02-22 17:46] LABS: Hematocrit 43.4 % (37-47); Hemoglobin 14.8 g/dL (12.0-15.0); Mean Corp Hgb Conc 34.1 g/dL (32-36); Mean Corpuscular Volume 79.9 fL (81-99); Mean Platelet Vol. 9.7 fl (6.2-12.0); Platelet Count 302 K/mm3 (150-450); RBC Distribution Width CV 12.6 % (11.6-14.6); RBC Distribution Width SD 35.9 fl (35.1-43.9); Red Blood Count 5.43 M/mm3 (4.2-5.4); White Blood Count 10.5 K/mm3 (4.4-11.0)
[2025-02-22 18:34] LABS: Magnesium 2.2 mg/dL (1.5-2.2)
[2025-03-02] VITALS (13 sets, daily range): BP systolic 98–141; BP diastolic 58–94; PULSE 71–88; RESP 12–18; TEMP 36.1–37.1; O2SAT 95–100; BMI 45.3
--- OUTSIDE RECORDS SUMMARY | 2025-03-02 05:37 | XMS RPT_ITS | CCD ---
Author Organization [facility] Inform ion Partnership [facility] Care Team Providers Care 2Nd Pressman Name Role Phone LishaJuani calderonzabeth Unavailable [phone] Amador Addison Attending Unavailable Lisha, Juani Kennedy Primary Care Provider Unavailable Primary Care Provider Unavailabl e Lisha CLASSROOM INSTRUCTIONAL AIDE, Juani Kennedy Primary Care Provid er Lisha CLASSROOM INSTRUCTIONAL AIDE, Juani Kennedy Primary Care Provid er LISHA, JUANI KENNEDY Primary Care Unavail able HENRRY BARAHONA Attending Unavailable Lisha CLASSROOM INSTRUCTIONAL AIDE, Juani Kennedy Primary Care Provid er Lisha CLASSROOM INSTRUCTIONAL AIDE, Juani Kennedy Unavailable LISHA, JUANI KENNEDY Admitting Unavail able LISHA, JUANI KENNEDY Primary Care Unavail able LISHA, JUANI KENNEDY Primary Care Unavail able LISHA, JUANI KENNEDY Admitting Unavail able LISHA, JUANI KENNEDY Primary Care Unavail able ELEUTERIO CASTANO Admitting Unavailable LISHA, JUANI KENNEDY Primary Care Unavail able Lisha CLASSROOM INSTRUCTIONAL AIDE, Juani Kennedy Primary Care Provid er Lisha CLASSROOM INSTRUCTIONAL AIDE, Juani Kennedy Unavailable LISHA, JUANI KENNEDY Attending Unavail able LISHA, JUANI KENNEDY Primary Care Unavail able LISHA, JUANI KENNEDY Attending Unavail able LISHA, JUANI KENNEDY Primary Care Unavail able LISHA, JUANI MARCIA Primary Care Unavail able CAROLINA ACEVES Attending Unavailable LISHA, JUANI KENNEDY Primary Care Unavail able MOROCCO JR., MCKENNA Attending Unavailable LISHA, JUANI KENNEDY Referring Unavail able LISHA, JUANI KENNEDY Admitting Unavail able LISHA, JUANI MARCIA Primary Care Unavail able MOROCCO JR., MCKENNA Attending Unavailable LISHA, JUANI KENNEDY Attending Unavail able [...] [phone] ALVINO Kohli Attending Provider [phone] Ian Mcdonald Attending Provider Care Physician, No Primary Primary Care Provider Unavailable Care Physician, No Primary Referring Provider Un available Care Physician, No Primary Primary Care Provider Unavailable Care Physician, No Primary Referring Provider Un available Dr. Elaina Castanon Attending Provider [phone] ALVINO Kohli Attending Provider [phone] Dr. Ian Mcdonald Attending Provider Care Physician, No Primary Primary Care Provider Unavailable Care Physician, No Primary Referring Provider Un available Dr. Elaina Castanon Attending Provider [phone] Dr. Crissy Mcneal Attending Provider [phone] Dr. Crissy Mcneal Other Provider ALVINO Gaytan Attending Provider [phone] ALVINO Gaytan Referring Provider [phone] ALVINO Gaytan Other Provider Care Physician, No Primary Primary Care Provider Unavailable Care Physician, No Primary Referring Provider Un available Oscar SEM MANAGER, SEM MANAGER-C Coco Attending Provider [phone] Dr. Elaina Castanon Admit Provider [phone] Dr. Elaina Castanon Other Provider [phone] DOC, MISC Primary Care Unavailable CRISSY SAL R Referring Unavailab le VANDEVELDECRISSY R Attending Unavailab le DOC, MISC Primary Care Unavailable SEVEN RODAS Attending Unavailable VANDEVSTARECRISSY Referring Unavailab le CERDAYUDITH F Attending Unavailable VANDCRISTINOECRISSY Referring Unavailab le DOC, MISC Primary Care Unavailable CERDAYUDITH F Attending Unavailable VANDCRISSY BRANCH R Referring Unavailab le DOC, MISC Primary Care Unavailable FREDERICK JUSTICE Attending Unavailable DOC, MISC Primary Care Unavailable CERDAYUDITH CANTU F Attending Unavailable CRISSY SAL R Referring Unavailab le DOC, MISC Primary Care Unavailable KONSTANTIN JONES Attending Unavailable REFERRED, SELF Referring Unavailable DOC, MISC Primary Care Unavailable KONSTANTIN JONES Attending Unavailable REFERRED, SELF Referring Unavailable CERDAYUDITH F Attending Unavailable CRISSY SAL R Referring Unavailab le DOC, MISC Primary Care Unavailable DOC, MISC Primary Care Unavailable CERDAYUDITH CANTU F Attending Unavailable CRISSY SAL R Referring Unavailab le DOC, MISC Primary Care Unavailable CERDAYUDITH F Attending Unavailable CRISSY SAL R Referring Unavailab le DOC, MISC Primary Care Unavailable CERDAYUDITH F Attending Unavailable CRISSY SAL Referring Unavailab le DOC, MISC Primary Care Unavailable YUDITH CERDA Attending Unavailable ELAINA CASTANON Referring Unavailabl e [facility] Unavailable YUDITH CERDA Attending Unavailable ELAINA CASTANON Referring Unavailabl e Manuel SEM MANAGER-C, Sidney Referring Provider Jesse Mckeon Attending Provider [phone] Jagjit JOSHI, Dr. Orta Primary Care Provider [phone] Jagjit JOSHI, Dr. Orta Referring Provider Jordan Cherry Attending Provider [phone] Duong JOSHI, Dr. Valverde Emergency Provider [phone] Duong JOSHI, Dr. Valverde Attending Provider [phone] Ana Cristina Freire DO, Dr. Woodward Attending Provider Manuel SEM MANAGER-C, Sidney Referring Provider [phone] Ana Cristina Freire DO, Dr. Woodward Referring Provider Jesse Mckeon Other Provider Jagjit JOSHI, Dr. Orta Attending Provider Ana Cristina Freire DO, Dr. Woodward Attending Physician Jagjit JOSHI, Dr. Orta Primary Care Physician [phone] Jesse Mckeon Nurse Practitioner [phone] Jagjit JOSHI, Dr. Orta Attending Physician [phone] Jagjit JOSHI, Dr. Orta Referring Provider Crissy Mcneal Referring Unavailabl e Karl VANG, Jesse Consulting Unavailable Jagjit, Marivel Primary Care Unavailable Crissy Mcneal Attending Unavailabl e Jagjit, Marivel Primary Care Unavailable Suffern, Marivel Attending Unavailable Jagjit, Marivel Referring Unavailable Jagjit, Marivel Primary Care Unavailable Crissy Mcneal Attending Unavailabl e Jagjit, Marivel Primary Care Unavailable Crissy Mcneal Attending Unavailabl e Abram Watters Attending Unavailable Suffern, Marivel Primary Care Unavailable Jagjit, Marivel Primary Care Unavailable Crissy Mcneal Attending Unavailabl e Jagjit, Marivel Referring Unavailable Suffern, Marivel Primary Care Unavailable Crissy Mcneal Attending Unavailabl e Manuel, Sidney Referring Unavailable Jagjit, Marivel Primary Care Unavailable Jagjit, Marivel Attending Unavailable Jagjit, Marivel Referring Unavailable Suffern, Marivel Primary Care Unavailable Vande Velde, Crissy Attending Unavailabl e Marivel Danielson Referring Unavailable Jesse Mckeon Attending Unavailable Sidney Jackson Primary Care Unavailable Sidney Jackson Referring Unavailable Jordan Cherry Attending Unavailable Marivel Danielson Primary Care Unavailable Marivel Danielson Referring Unavailable Jagjit JOSHI, Dr. Orta Primary Care Physician Dr. Crissy Mcneal DO Attending Physician Allergies Allergy Classification Reported Allergen(s) Allergy Type Date of Onset Reaction(s) Facility (20 sources) acetaminophen / HYDROcodone; Translations: [HYDROCODONE-ACETA MINOPHEN] Propensity to adverse reactions to drug 07-07-19 16 Other (See Comments) [facility] (20 sources) diazePAM; Translations: [DIAZEPAM] Propensity to adverse reactions to drug 05-17-19 17 Anxiety [facility] Comment on above: panic attack (20 sources) erythromycin; Translations: [ERYTHROMYCIN BASE] Propensity to adverse reactions to drug 11-27-19 15 Other (See Comments), Nausea And Vomiting [facility] (19 sources) penicillin; Translations: [PENICILLIN] Propensity to adverse reactions to drug 11-27-19 15 Rash [facility] (1 source) Acetaminophen Drug Allergy [facility] [place] Repository (2 sources) diazePAM Drug Allergy 12-12-19 [facility] Repository (2 sources) Erythromycin Drug Allergy 12-12-19 25 [facility] Repository (3 sources) HYDROcodone; Translations: [HYDROCODONE] Drug Allergy 07-03-19 20 [facility] Repository (3 sources) Penicillins; Translations: [PENICILLINS] Drug allergy (disorder) 11-27-19 15 [facility] Repository (20 sources) cefdinir; Translations: [CEFDINIR] Drug Allergy 01-14-20 19 Anaphylaxis [facility] (20 sources) HYDROcodone Drug Allergy 01-14-20 Other [place], [place] Comment on above: hallucinations (1 source) Penicillins Propensity to adverse reactions to drug 01-14-20 Rash [place], [place] (1 source) Acetaminophen Drug Allergy 03-01-20 Other [facility] (19 sources) Penicillins Allergy to substance 03-01-20 [facility] (1 source) Erythromycin; Translations: [ERYTHROMYCIN] Drug Allergy 11-27-19 15 [facility] Repository (1 source) cefdinir Drug Allergy 12-12-19 [facility] Repository Medications Current Medications Medication Drug Class(es) Dates Sig (Normalized) Sig (Original) cetirizine hydrochloride 10 mg oral tablet (20 sources) Histamine-1 Receptor Antagonist Start: 07-03-2019 End: 02-02-2020 take 1 tablet by mouth at bedtime dexamethasone 1 mg oral tablet (4 sources) Corticosteroid Start: 09-10-2024 take 1 tablet by mouth once 1 ml diphenhydrAMINE hydrochloride 50 mg/ml cartridge [...] daily, then take 1 tablet by mouth norethindrone-e. estradiol-iron (LO LOESTRIN FE) 1 mg-10 mcg (24)/10 [...] discomfort, Starting 01/17/20 at 1430, medroxyPROGESTERone acetate 5 mg oral tablet (10 sources) Progestin Start: 12-11-2024 take 1 tablet by mouth once daily Start: 09-02-2024 End: 11-17-2024 megestrol acetate 20 mg oral tablet (14 sources) Progestin Start: 07-22-2024 End: 09-10-2024 take 1 tablet by mouth once daily as needed 24 hr metFORMIN hydrochlorid e 500 mg extended release oral tablet (20 sources) Biguanide Start: 08-07-2024 take 1 tablet by milad th twice daily Start: 03-07-2023 End: 08-01-2023 Metformin 500 mg tablet exte nded release 24 hr Discontinued 1000 mg PO TWICE A DAY 360 March 07, 2023 6:25pm August 01, 2023 [...] 10 mL 0 09/10/2021 09/17/2021 Active Pnv #70-Edhq-Zzxve Acid-Omega3 (8 sources) Start: 03-07-20 take 1 capsule by mouth once daily Pnv #90-Gxtf-Ezcwz Acid-Omega3 Active 1 CAP PO DAILY March 07, 2023 1:00am Start: 03-07-2023 take 1 capsule by [facility] once daily Pnv #20-Jqbn-Ksgus Acid-Omega3 Active 1 CAP PO DAILY March 07, 2023 12:00am EJG67-VR-dz6-adh-hly-gobk oi l 400 mcg-35 mg -25 mg-5 mg Chew (13 sources) Start: 04-30-2018 WRS96-QV-pi5-wrt-ppc-psit oi l 400 mcg-35 mg -25 mg-5 [...] / oxyCODONE hydrochloride 5 mg oral tablet (10 sources) Opioid Agonist Start: 07-20-2023 End: 08-01-2023 [...] Active ascorbic acid 500 mg oral capsule (19 sources) Vitamin C Start: 07-03-2019 End: 09-14-2019 Ascorbic Acid (Vitamin C) 50 0 mg capsule Discontinued mg PO July 03, 2019 12:00am September 14, 2019 9:10am Start: 07-03-2019 End: 09-14-2019 Ascorbic Acid (Vitamin C) Di scontinued MG PO July 03, 2019 12:00am September 14, 2019 9:10am Cranberry Conc-Ascorbic Acid (19 sources) Non-Standardized Food Allergenic Extract, Non-Standardized Plant [...] aspirin 81 mg delayed release oral tablet (17 sources) Platelet Aggregation Inhibitor, Nonsteroidal Anti-inflammatory Drug Start: 03-07-2023 End: 08-01-2023 take 1 tablet by mouth once daily Aspirin 81 mg tablet,delayed release (DR/EC) Discontinued 81 mg PO DAILY March 07, 2023 1:00am August 01, 2023 9:51am azithromycin 250 mg oral tablet (18 sources) Macrolide Antimicrobial Start: 05-03-2023 End: 05-17-2023 [...] Blood-Glucose Meter (T[employer]etr[employer] Blood Glucose System) kit (19 sources) Start: 11-12-2019 End: 02-02-2020 Blood-Glucose Meter ([employer] Blood Glucose System) kit Discontinued 0 .ROUTE .MEDSUPPLY 1 November 12, 2019 12:00am February 02, 2020 10:19am As directed Start: 11-12-2019 End: 02-02-2020 Blood-Glucose Meter (Truetra ck Blood Glucose System) kit Discontinued 0 .ROUTE .MEDSUPPLY 1 November 11, 2019 11:00pm February 02, 2020 [...] 2021 2:16pm As directed Breast Pump device (9 sources) Start: 12-03-2019 End: 03-01-2021 Breast Pump [...] Intravenous, at 125 mL/hr, C ONTINUOUS, Starting Charline 01/14/20 at 1815 cefdinir 300 mg oral [...] 2:17pm elderberry fruit 200 mg oral capsule (19 sources) Start: 07-03-2019 End: 09-14-2019 Elderberry Fruit [...] mouth daily . 0 Active Norgestimate-Ethinyl Estradiol (19 sources) Progestin, Estrogen Start: 03-28-2020 End: 01-12-2021 Norgestimate-Ethinyl Estradiol (Thk-Xh-Aonvxr) 0.18/0.215/0.25 mg-25 mcg tablet Discontinued 1 {tbl} PO DAILY 07 03March 28, 2020 1:00am January 12, 2021 3:39pm Start: 03-28-2020 End: 01-12-2021 Norgestimate-Ethinyl Estradi ol (Kfp-Gt-Kqxojt) 0.18/0.215/0.25 mg-25 mcg tablet Discontinued 1 {tbl} PO DAILY March 28, 2020 1:00am January 12, 2021 3:39pm Start: 03-28-2020 End: 01-12-2021 take 1 tablet by mouth once daily Norgestimate-Ethinyl Estradiol (Phd-Ev-Gysurj) 0.18/0.215/0.25 mg-25 mcg tablet Discontinued 1 TABLET PO DAILY March 28, 2020 12:00am January 12, 2021 2:39pm Start: 03-28-2020 End: 01-12-2021 take 1 tablet by mouth once daily Norgestimate-Ethinyl Estradiol (Agu-Ep-Pxoszn) 0.18/0.215/0.25 mg-25 mcg tablet Discontinued 1 TABLET PO DAILY March 28, 2020 1:00am January 12, 2021 3:39pm Flash Glucose Sensor (Freest yle Lily 2 Sensor) kit (18 sources) Start: 01-11-2023 End: 08-01-2023 Flash Glucose Sensor (Freest yle Lily 2 Sensor) kit Discontinued 0 .Route 1 January 11, 2023 12:00am August 01, 2023 [...] propionate 0.05 mg/actuat metered dose nasal spray (9 sources) Corticosteroid Start: 07-22-2024 End: 08-07-2024 take 50 ug nasal route at bedtime as needed Fluticasone Propionate (24 Hour Allergy Relief) 50 mcg/actuation spray,suspension Discontinued 1 NMA INTRANASAL AT BEDTIME as needed for allergy symptoms July 22, 2024 12:00am August 07, 2024 2:18pm administer into each nostril folic acid w/dha 800 mcg (9 sources) Start: 03-07-2023 End: 08-06-2023 folic acid [...] mL infusion ibuprofen 200 mg oral capsule (20 sources) Nonsteroidal Anti-inflammatory Drug Start: 02-02-2020 End: [...] Discontinued 50 U SC TWICE A DAY 07 08April 16, 2023 1:00am June 07, 2023 1:40pm [...] Start: 01-20-2020 take 1 tablet by milad th every eight hours labetalol (NORMODYNE) 200 MG [...] dose miconazole nitrate 0.02 mg/mg topical powder (19 sources) Azole Antifungal Start: 09-29-2020 End: 03-01-2021 Miconazole Nitrate (Desenex) 2 % powder Discontinued 1 NMA TOPICAL TWICE A DAY 85 September 29, 2020 12:00am March 01, 2021 2:17pm montelukast 10 mg oral tablet (4 sources) Leukotriene Receptor Antagonist Start: 04-23-2017 End: 06-27-2021 montelukast (SINGULAIR) 10 mg tablet Multivit 85-Nuqj-Wcvrum 1-Dha (Pnv-Dha) 27 mg iron-1 mg -300 mg capsule (19 sources) Start: 07-03-2019 End: 03-01-2021 Multivit 37-Xvqj-Rgtfzi 1-Dha (Pnv-Dha) 27 mg iron-1 mg -300 mg capsule Discontinued NMA PO July 03, 2019 12:00am March 01, 2021 2:17pm Start: 07-03-2019 End: 03-01-2021 Multivit 26-Zsrh-Tijjil 1-Dh a (Pnv-Dha) 27 mg iron-1 mg -300 mg capsule Discontinued CAP PO July 02, 2019 11:00pm March 01, 2021 1:17pm Start: 07-03-2019 End: 03-01-2021 Multivit 56-Bwgv-Nujgcc 1-Dh a (Pnv-Dha) 27 mg iron-1 mg -300 mg capsule Discontinued CAP PO July 03, 2019 12:00am March 01, 2021 2:17pm Multivit With Min-Folic Acid (One-A-Day Vitacraves Immunity) 200 mcg tablet,chewable (19 sources) Start: 06-23-2020 End: 03-07-2023 take 1 [...] % cream naproxen 500 mg oral tablet (10 sources) Nonsteroidal Anti-inflammatory Drug Start: 07-20-2023 End: 08-06-2023 take 1 tablet by mouth twice daily as needed for pain Naproxen 500 mg tablet Discontinued 500 mg PO TWICE DAILY NEEDED as needed for Pain 30 July 20, 2023 12:00am August 06, 2023 1:06pm nitrofurantoin, macrocrystals 25 mg / nitrofurantoin, monohydrate 75 mg oral capsule (14 sources) Nitrofuran Antibacterial Start: 06-18-2023 End: 07-18-2023 [...] start day 1 of menstrual cycle nystatin [id number] unt/ml oral suspension (3 sources) Polyene Antifungal Start: 09-02-2017 End: 06-27-2021 take 5 mL by mouth four times daily nystatin (MYCOSTATIN) 100,000 unit/mL suspension Take 5 mL by mouth 4 (four) times a day. 0 09/02/2017 06/27/2021 Discontinued ondansetron 4 mg disintegrating oral tablet (14 sources) Serotonin-3 Receptor Antagonist Start: 06-18-2023 End: [...] in 500 mL infusion Override Pull Pnv #26-Xsyb-Ztqxp Acid-Omega3 30 mg iron-10 mg iron-1 mg capsule (7 sources) Start: 03-07-2023 End: 08-07-2024 Pnv #31-Cdbl-Pmuet Acid-Omeg a3 30 mg iron-10 mg iron-1 mg capsule Discontinued 1 NMA PO DAILY March 07, 2023 1:00am August 07, 2024 2:18pm SUPPLEMENT Start: 03-07-2023 End: 08-07-2024 Pnv #47-Vzek-Myntm Acid-Omeg a3 30 mg iron-10 mg iron-1 mg capsule Discontinued 1 NMA PO DAILY March 07, 2023 1:00am August 07, 2024 2:18pm Start: 03-07-2023 Pnv #30-Iron-F olic Acid-Omega3 30 mg iron-10 mg iron-1 mg capsule Active 1 NMA PO DAILY March 07, 2023 1:00am Pnv 05-Fkkt-Jtoef Bmkt-Hjvyn-7 30 mg iron-10 mg iron-1 mg capsule (2 sources) Start: 03-07-2023 End: 08-07-2024 Pnv 57-Pqho-Kiivn Epkq-Ppouj-7 30 mg iron-10 mg iron-1 mg capsule Discontinued 1 NMA PO DAILY March 07, 2023 1:00am August 07, 2024 2:18pm SUPPLEMENT sertraline 50 mg oral tablet (9 sources) Serotonin Reuptake Inhibitor Start: 10-21-2023 End: 11-22-2023 take 1 tablet by mouth once daily Sertraline (Zoloft) 50 mg tablet Discontinued 50 mg PO DAILY October 21, 2023 12:00am November 22, 2023 [...] Problem Date Documented Date Episodic/Chronic Adjustment disorders (3 sources) Family tension; Translations: [Reaction to severe stress, unspecified] 09-10-2024 Chronic Administrative/social admission (7 sources) First encounter by subject; Translations: [Persons encountering health services in other specified circumstances] 08-07-2023 Episodic Anxiety disorders (9 sources) Anxiety; Translations: [Anxiety disorder, unspecified] 11-22-2023 Chronic Diabetes or abnormal glucose tolerance complicating ; childbirth; or the puerperium (20 sources) 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 s eeiwona faizan. Diabetes or abnormal glucose tolerance complicating ; [...] (1 source) Acute vaginitis Episodic Menstrual disorders (16 sources) Amenorrhea; Translations: [Amenorrhea, unspecified] Onset: 06-28-2021 Chronic Miscellaneous mental health disorders (9 sources) depression; Translations: [ depression] 10-21-2023 Episodic Other complications of ; puerperium affecting management of mother (19 sources) condition affecting obstetrical care of mother; Translations: [ cleft lip and palate affecting antepartum care of mother] 11-23-2022 Episodic Comment on above: confirmed right and left cleft lip and palate. s/p treatment center consult, FU q4 weeks MFM. Planned visit with plastics and . OK for [facility] delivery. Other complications of ; puerperium affecting management of mother (10 sources) Deliveries by ; Translations: [Encounter for delivery without indication] 07-20-2023 Episodic Comment on above: JAEL Bowles Other complications of ; puerperium affecting management of mother (1 source) Encounter for delivery without indication; Translations: [ delivery, without mention of indication, delivered, with or without mention of antepartum condition] 07-20-2023 Episodic Other complications of (19 sources) Maternal obesity complicating , childbirth and [...] 06-27-2021 Episodic Comment on above: PRR AGAPITO: Vonda Bowles PC: Fahad Spouse: Robin Other complications of (18 sources) History of pre-eclampsia; Translations: [Supervision of [...] high-risk ] 12-14-2022 Episodic Other complications of (14 sources) Traumatic injury during ; Translations: [Injury, [...] , unspecified] 06-18-2023 Episodic Other complications of (13 sources) Urinary tract infection in ; Translations: [Unspecified infection of urinary tract in , unspecified trimester] 06-18-2023 Episodic Other complications of (12 sources) Unspecified infection of urinary tract in , unspecified trimester; Translations: [Infections of genitourinary tract in , unspecified as to episode of care or not applicable] 06-18-2023 Episodic Other complications of (15 sources) Vomiting of , unspecified; Translations: [Unspecified vomiting of , unspecified as to episode of care or not applicable] 06-21-2023 Episodic Other complications of (11 sources) Group B Streptococcus carrier; Translations: [Streptococcus [...] 04-10-2024 12-13-2022 Chronic Other female genital disorders (9 sources) Abnormal vaginal bleeding; Translations: [Abnormal uterine and vaginal bleeding, unspecified] 07-22-2024 Chronic Other female genital disorders (17 sources) Abnormal uterine bleeding; Translations: [Abnormal uterine and vaginal bleeding, unspecified] 09-02-2024 Chronic Other female genital disorders (1 source) Abnormal uterine and vaginal bleeding, unspecified; Translations: [Abnormal uterine and vaginal bleeding, unspecified] Onset: 01-04-2025 Chronic Other inflammatory condition of skin (19 sources) Irritant contact dermatitis; Translations: [Erythema intertrigo] [...] insulin Other nutritional; endocrine; and metabolic disorders (20 sources) Body mass index 30+ - obesity; Translations: [Obesity, unspecified] 08-07-2023 Chronic Other nutritional; endocrine; and metabolic disorders (7 sources) Body mass index 40+ - severely [...] Onset: 05-28-2022 Episodic Other upper respiratory infections (19 sources) Sinusitis; Translations: [Chronic sinusitis, unspecified] 09-29-2020 [...] genital system and obstetric disorders] 02-08-2023 Episodic Residual codes; unclassified (2 sources) History of previous intrauterine growth restricted ; Translations: [Personal history of other complications of , childbirth and the puerperium] 07-20-2023 Episodic Comment on above: third trimester test ing already planned Screening and history of mental health and substance abuse codes (3 sources) Patient encounter status; Translations: [Encounter for screening for depression] 09-10-2024 Episodic Superficial injury; contusion (2 sources) Abrasion of left cornea; Translations: [Injury of conjunctiva and corneal abrasion without foreign body, left eye, initial encounter] Episodic Unclassified (2 sources) Morbid obesity with body mass index (BMI) of 45.0 to 49.9 in adult Unclassified (4 sources) E66.01 - Morbid (severe) obesity due [...] Test Name Value Interpretation Reference Range Facility Surgical pathology reportOrd ered By: Sandra Alvares on 12-17-2024 Surgical pathology study [facility] Supervisor Customer Complaint Service Office Visit Reporton 12-11-2024 Supervisor Customer Complaint Service Office Visit Report [facility] [address], [place] [address] OFFICE VISIT Date of Service: 12/11/24 MR#: [id number] Acct: [id number] Name: NANCY MATOS Rep #: [id number] : 1990 Provider: Dr. Crissy An DO Age/Sex: 34/F [place] [facility] [place]: S[place] Intake Vital Signs 09/10/24 09:06 12/11/24 07:55 12/11/24 07:59 Height 5 ft 4 in 5 ft 4 in 5 ft 4 in Weight: 267 lb 263 lb 1 oz BMI 45.8 45.1 BP 110/70 106/72 Blood Pressure Location Lt brachial Position Sitting Respiration 18 Pulse 87 Pulse Source Monitor Temp 97.2 F L Pulse Oximetry (%) 98 Oxygen Delivery Method room air Intake Visit Reasons: AUB on progesterone *COPAY $30 Chief Complaint: AUB Statement Request Clerk Required: No Is patient in pain?: No Allergies Penicillins Allergy (Severe, Verified 12/11/24 07:55) Rash cefdinir (From Omnicef) Allergy (Verified 12/11/24 07:55) Anaphylaxis diazepam (From Valium) Adverse Reaction (Severe, Verified 12/11/24 07:55) Other hydrocodone (From Vicodin) Adverse Reaction (Severe, Verified 12/11/24 07:55) Other erythromycin base Adverse Reaction (Intermediate, Verified 12/11/24 07:55) vomiting Medications ???Medication ???Instructions ???Recorded ???Confirmed ???Type cetirizine 10 mg tablet (Zyrtec) 10 mg PO QHS allergy symptoms 01/1012/11/24 History metformin 500 mg tablet,extended 500 mg PO BID gdm 90 days #180 tab s 08/07/24 12/11/24 Rx release 24 hr dexamethasone 1 mg tablet 1 mg PO ONCE #1 TAB 09/10/2412/11 Rx labetalol 100 mg tablet 100 mg PO BID #180 tabs 09/10/24 1 Rx megestrol 20 mg tablet 20 mg PO DAILY PRN 09/10/24 History medroxyprogesterone 2.5 mg tablet 2.5 mg PO QDAY #90 tabs 11/17/24 12/11/24 Rx medroxyprogesterone 5 mg tablet 5 mg PO QDAY 90 days #90 tabs 06/0212/11/24 Rx Post menopausal: No Patient : No : No PFSH Medical History Anxiety depression PCOS (polycystic ovarian syndrome) GBS [...] H/O nasal septoplasty Family History Father Hypertension Celiac disease Mother Prediabetes Grandfather [...] Type: coffee frequency: 1-2 times per week nick/buddhism: Jew seatbelt use: always do you feel safe at home: Yes additional social history: - Robin (SHARAD) AUBREY AUB on progesterone *COPAY $30 Details: HPI: The patient is a 34-year-old female with a history of tubal ligation and with a history of PCOS and hypertension presenting for evaluation of abnormal uterine bleeding and weight management. Abnormal Uterine Bleeding - Reports a history of heavy menstrual bleeding, which has improved since starting progesterone three months ago. - Initially, the first month on progesterone resulted in no period, only cramping and period symptoms. - During the second month, she began bleeding four days before stopping the medication, which continued for 11 days. - After consulting her healthcare provider, she was advised to increase her progesterone dosage to three pills for three days, followed by two pills for three days, and then back to o (more content not included)... Normal [facility] Surgery Specimen Level Dahiana 12-11-2024 Surgery Specimen Level IV Patient Age/Sex Location Account Attending Physician NANCY MATOS 34/F LABSPEC [id number] Tj Izaguirre Specimen: [id number] Received: 12/11/24 Status: MARY Elizondolor Num: [id number] Spec Type: SAULO BX/C Leon Dr: Dr. Crissy Mcneal, DO HEADER OPERATION: Endometrial biopsy PRE-OP DIAGNOSIS: Abnormal uterine bleeding TISSUE SUBMITTED: A- Endometrial lining MICROSCOPIC DIAGNOSIS A. Endometrium, biopsy: * Inactive endometrium with focal area suggestive of polyp formation MICROSCOPIC DESCRIPTION Slides are reviewed. GROSS DESCRIPTION A. Received in formalin labeled the patient's name and date of is a 2.8 x 1.8 x 0.2 cm aggregate of mucoid material and flecks of pink-red tissue fragments. Entirely submitted in 1 cassette. Entirety of the specimen may not survive processing. DE 12/11/2024 CPT:61453 Patient Age/Sex Location Account Attending Physician NANCY MATOS 34/F LABSPEC [id number] Tj Izaguirre Signed (signature on file) Dr. Sandra Alvares DO 12/17/24 1150 Normal [facility] Comment on above: Performed By: #### P IZZY ####[facility] [address] [place], [address] Absolute lymphocyte countOrd ered By: Jesse Barajas on 09-12-2024 Lymphocytes Auto (Unsp spec) [#/Vol] 1.55 10*3/uL 0.83-4.51 [facility] Absolute neutrophil countOrd ered By: Jesse Barajas on 09-12-2024 Neutrophils (Bld) [#/Vol] 7.1 10*3/uL 2.0-7.7 [facility] Anion gap in Serum or Plasma Ordered By: Marivel Danielson on 09-12-2024 Anion gap [Moles/Vol] 15 mmol/L 5-15 [facility] Automated lymphocyte count a s percentage of total leukocytesOrdered By: Jesse Barajas on 09-12-2024 Lymphocytes/100 WBC Auto (Unsp spec) 17.0 % Low 19-41 [facility] BUN/creatinine ratioOrdered By: Marivel Danielson on 09-12-2024 Urea nitrogen/Creatinine [Mass ratio] 22.2 mg/mg High 10-20 [facility] Basophil percentageOrdered B y: Jesse Barajas on 09-12-2024 Basophils/100 WBC (Bld) 0.2 % 0-1 [facility] Bilirubin, totalOrdered By: Marivel Danielson on 09-12-2024 Bilirubin [Mass/Vol] 0.27 mg/dL 0.00-1.30 [facility] CBC W/Diff, Automatedon Absolute Lymph 1.55 X10 3/uL Normal 0.83-4.51 [facility] Comment on above: Performed By: #### L 501.9520, L500.4100, L100.0100 ####[facility] [address] [place], [address] Absolute Neut 7.1 X10 3/uL Normal 2.0-7.7 [facility] Comment on above: Performed By: #### L 501.9520, L500.4100, L100.0100 ####[facility] [address] [place], [address] Basophils/100 WBC (Bld) 0.2 % Normal 0-1 [facility] Comment on above: Performed By: #### L 501.9520, L500.4100, L100.0100 ####[facility] [address] [place], [address] Eosinophils/100 WBC (Bld) 0.4 % Normal 0-5 [facility] Comment on above: Performed By: #### L 501.9520, L500.4100, L100.0100 ####[facility] [address] [place], [address] Erythrocyte distribution width (RBC) [Ratio] 12.3 % Normal 11.6-14.6 [facility] Comment on above: Performed By: #### L 501.9520, L500.4100, L100.0100 ####[facility] [address] [place], [address] Hematocrit (Bld) [Volume fraction] 41.5 % Normal 37-47 [facility] Comment on above: Performed By: #### L 501.9520, L500.4100, L100.0100 ####[facility] [address] [place], [address] Hemoglobin (Bld) [Mass/Vol] 14.4 g/dL Normal 12.0-15.0 [facility] Comment on above: Performed By: #### L 501.9520, L500.4100, L100.0100 ####[facility] [address] [place], [address] IG% 0.400 Normal 0.0-0.9 [facility] Comment on above: Result Comment: IG% - Immature Granulocytes (promyelocytes, myelocytes and metamyelocytes) > 1% indicates that a LEFT SHIFT is Present. Performed By: #### L 501.9520, L500.4100, L100.0100 ####[facility] [address] [place], [address] Lymphocytes/100 WBC (Bld) 17.0 % Low 19-41 [facility] Comment on above: Performed By: #### L 501.9520, L500.4100, L100.0100 ####[facility] [address] [place], [address] MCH (RBC) [Entitic mass] 27.8 pg Normal 27.0-32.0 [facility] Comment on above: Performed By: #### L 501.9520, L500.4100, L100.0100 ####[facility] [address] [place], [address] MCHC (RBC) [Mass/Vol] 34.7 g/dL Normal 32-36 [facility] Comment on above: Performed By: #### L 501.9520, L500.4100, L100.0100 ####[facility] [address] [place], [address] MCV (RBC) [Entitic vol] 80.1 fL Low 81-99 [facility] Comment on above: Performed By: #### L 501.9520, L500.4100, L100.0100 ####[facility] [address] [place], [address] Monocytes/100 WBC (Bld) 3.8 % Normal 0-10 [facility] Comment on above: Performed By: #### L 501.9520, L500.4100, L100.0100 ####[facility] [address] [place], [address] Neutrophils/100 WBC (Bld) 78.2 % High 47-70 [facility] Comment on above: Performed By: #### L 501.9520, L500.4100, L100.0100 ####[facility] [address] [place], [address] Nucleated RBC (Bld) [#/Vol] 0 10*3/uL Normal 0-5 [facility] Comment on above: Performed By: #### L 501.9520, L500.4100, L100.0100 ####[facility] [address] [place], [address] Platelet mean volume (Bld) [Entitic vol] 9.6 fL Normal 6.2-12.0 [facility] Comment on above: Performed By: #### L 501.9520, L500.4100, L100.0100 ####[facility] [address] [place], [address] Platelets (Bld) [#/Vol] 278 10*3/uL Normal 150-450 [facility] Comment on above: Performed By: #### L 501.9520, L500.4100, L100.0100 ####[facility] [address] [place], [address] RBC (Bld) [#/Vol] 5.18 10*6/uL Normal 4.2-5.4 [facility] Comment on above: Performed By: #### L 501.9520, L500.4100, L100.0100 ####[facility] [address] [place], [address] RDW SD 35.7 fl Normal 35.1-43.9 [facility] Comment on above: Performed By: #### L 501.9520, L500.4100, L100.0100 ####[facility] [address] [place], [address] WBC (Bld) [#/Vol] 9.1 10*3/uL Normal 4.4-11.0 [facility] Comment on above: Performed By: #### L 501.9520, L500.4100, L100.0100 ####[facility] [address] [place], [address] Calculated very low density lipoprotein (VLDL) cholesterol measurementOrdered By: Jesse Barajas on 09-12-2024 Calculated very low density lipoprotein (VLDL) cholesterol measurement 16 mg/dL 5-40 [facility] Carbon dioxide, total [Moles /volume] in Central venous bloodOrdered By: Marivel Suffern on 09-12-2024 CO2 [Moles/Vol] 18.4 mmol/L Low 21.0-32.0 [facility] Chloride assayOrdered By: Al ycia Jagjit on 09-12-2024 Chloride [Moles/Vol] 104 mmol/L 98-108 [facility] Comprehensive Metabolic Prof ilon 09-12-2024 Albumin [Mass/Vol] 4.5 g/dL Normal 3.5-5.0 [facility] Comment on above: Performed By: #### L 500.4050, L509.6001 #### [facility] [address] [place], [address] Albumin/Globulin [Mass ratio] 1.4 {ratio} Normal 0.9-2.4 [facility] Comment on above: Performed By: #### L 500.4050, L509.6001 #### [facility] [address] [place], [address] ALK PHOS 106 U/L High 35-104 [facility] Comment on above: Performed By: #### L 500.4050, L509.6001 #### [facility] [address] [place], [address] ALT [Catalytic activity/Vol] 21 U/L Normal <=34 [facility] Comment on above: Performed By: #### L 500.4050, L509.6001 #### [facility] [address] [place], [address] AST [Catalytic activity/Vol] 22 U/L Normal <=31 [facility] Comment on above: Performed By: #### L 500.4050, L509.6001 #### [facility] [address] [place], [address] Bilirubin [Mass/Vol] 0.27 mg/dL Normal 0.00-1.30 [facility] Comment on above: Performed By: #### L 500.4050, L509.6001 #### [facility] [address] [place], [address] BUN/CRE 22.2 RATIO High 10-20 [facility] Comment on above: Performed By: #### L 500.4050, L509.6001 #### [facility] [address] [place], [address] Calcium [Mass/Vol] 9.5 mg/dL Normal 7.6-11.0 [facility] Comment on above: Performed By: #### L 500.4050, L509.6001 #### [facility] [address] [place], [address] Chloride [Moles/Vol] 104 mmol/L Normal 98-108 [facility] Comment on above: Performed By: #### L 500.4050, L509.6001 #### [facility] [address] [place], [address] CO2 [Moles/Vol] 18.4 mmol/L Low 21.0-32.0 [facility] Comment on above: Performed By: #### L 500.4050, L509.6001 #### [facility] [address] [place], [address] Creatinine [Mass/Vol] 0.69 mg/dL Low 0.70-1.20 [facility] Comment on above: Performed By: #### L 500.4050, L509.6001 #### [facility] [address] [place], [address] GAP 15 Normal 5-15 [facility] Comment on above: Performed By: #### L 500.4050, L509.6001 #### [facility] [address] [place], [address] GFR/1.73 sq M.predicted among non-blacks MDRD (S/P/Bld) [Vol rate/Area] 118 mL/min/{1.73_m2} Normal >60 [facility] Comment on above: Result Comment: mL/m in/1.73m2 CKD-EPI Creatinine Equation (2020) Performed By: #### L 500.4050, L509.6001 #### [facility] [address] [place], [address] Globulin (S) [Mass/Vol] 3.3 g/dL Normal 2.2-4.2 [facility] Comment on above: Performed By: #### L 500.4050, L509.6001 #### [facility] [address] [place], [address] Glucose [Mass/Vol] 122 mg/dL High 70-99 [facility] Comment on above: Performed By: #### L 500.4050, L509.6001 #### [facility] [address] [place], [address] Potassium [Moles/Vol] 4.2 mmol/L Normal 3.3-5.1 [facility] Comment on above: Performed By: #### L 500.4050, L509.6001 #### [facility] [address] [place], [address] Sodium [Moles/Vol] 137 mmol/L Normal 133-145 [facility] Comment on above: Performed By: #### L 500.4050, L509.6001 #### [facility] [address] [place], [address] T PROT 7.8 g/dL Normal 5.9-8.4 [facility] Comment on above: Performed By: #### L 500.4050, L509.6001 #### [facility] [address] [place], [place], [address] Urea nitrogen [Mass/Vol] 15 mg/dL Normal 4-19 [facility] Comment on above: Performed By: #### L 500.4050, L509.6001 #### [facility] [address] [place], [place], [address] Eosinophil percentageOrdered By: Jesse Barajas on 09-12-2024 Eosinophils/100 WBC (Bld) 0.4 % 0-5 [facility] Erythrocyte distribution wid th ratioOrdered By: Jesse Barajas on 09-12-2024 Erythrocyte distribution width (RBC) [Ratio] 12.3 % 11.6-14.6 [facility] Erythrocyte distribution wid th standard deviationOrdered By: Jesse Barajas on 09-12-2024 Erythrocyte distribution width (RBC) [Ratio] 35.7 fl 35.1-43.9 [facility] Glomerular filtration rate ( GFR) estimation/1.73 sq m using serum, plasma, or whole bOrdered By: Marivel Danielson on 09-12-2024 GFR/1.73 sq M.predicted among non-blacks MDRD (S/P/Bld) [Vol rate/Area] 118 mL/min/{1.73_m2} >60 [facility] Comment on above: mL/min/1.73m2 CKD-EP I Creatinine Equation (2020) Hematocrit Auto (Bld) [Volum e fraction]Ordered By: Jesse Barajas on 09-12-2024 Hematocrit (Bld) [Volume fraction] 41.5 % 37-47 [facility] Hemoglobin measurementOrdere d By: Jesse Barajas on 09-12-2024 Hemoglobin (Bld) [Mass/Vol] 14.4 g/dL 12.0-15.0 [facility] Immature granulocytes/100 WB C Auto (Bld)Ordered By: Jesse Barajas on 09-12-2024 Immature granulocytes/100 WBC (Bld) 0.400 % 0.0-0.9 [facility] Comment on above: IG% - Immature Granu locytes (promyelocytes, myelocytes and metamyelocytes) > 1% indicates that a LEFT SHIFT is Present. L509.6001on 09-12-2024 CORTISOL 0.51 ug/dL Low 6.02-18.40 [facility] Comment on above: Performed By: #### L 500.4050, L509.6001 ####[facility] [address] [place], [address] LDL calc ser/plasOrdered By: Jesse Barajas on 09-12-2024 Cholesterol in LDL [Mass/Vol] 125 mg/dL [facility] Comment on above: Dvqsitxqim=463-555 m g/dL & Higher Eskf=604 mg/dL or greater Laboratory - Chemistry and C hemistry - challengeOrdered By: Marivel Danielson on 09-12-2024 AST [Catalytic activity/Vol] 22 U/L <32 [facility] Lipid Profileon 09-12-2024 CHOL:HDL 4.17 Normal [facility] Comment on above: Performed By: #### L 501.9520, L500.4100, L100.0100 ####[facility] [address] [place], [address] Cholesterol [Mass/Vol] 185 mg/dL Normal <=200 [facility] Comment on above: Result Comment: Chol esterol level, Desirable <200 mg/dL Borderline high cholesterol 200-239 mg/dL High cholesterol >=240 mg/dL Recommendations of the NCEP Adult Treatment Panel for the following risk-cutoff thresholds for the [place] population. Performed By: #### L 501.9520, L500.4100, L100.0100 ####[facility] [address] [place], [address] Cholesterol in HDL [Mass/Vol] 44 mg/dL Normal [facility] Comment on above: Result Comment: Monie onal Cholesterol Education Program (NCEP) guidelines: <40 mg/dL: Low HDL-cholesterol (major risk factor for CHD) >= 60 mg/dL: High HDL-cholesterol (negative risk factor for CHD) HDL-cholesterol is affected by a number of factors, e.g. smoking, exercise, hormones, sex and age. Performed By: #### L 501.9520, L500.4100, L100.0100 ####[facility] [address] [place], [address] Cholesterol in LDL [Mass/Vol] 125 mg/dL Normal [facility] Comment on above: Result Comment: Bord shvsau=062-087 mg/dL Higher Avlg=277 mg/dL or greater Performed By: #### L 501.9520, L500.4100, L100.0100 ####[facility] [address] [place], [address] Cholesterol in VLDL [Mass/Vol] 16 mg/dL Normal 5-40 [facility] Comment on above: Performed By: #### L 501.9520, L500.4100, L100.0100 ####[facility] [address] [place], [address] Triglyceride [Mass/Vol] 78 mg/dL Normal [facility] Comment on above: Result Comment: The drugs N-Acetylcysteine and Metamizole may falsely depress this assay. Normal range: <150 mg/dL Borderline High: 150-199 mg/dL High: 200-499 mg/dL Very High: >500 mg/dL Performed By: #### L 501.9520, L500.4100, L100.0100 ####[facility] [address] [place], [address] MCV (mean corpuscular volume ) determinationOrdered By: Jesse Barjaas on 09-12-2024 MCV (RBC) [Entitic vol] 80.1 fL Low 81-99 [facility] Mean corpuscular hemoglobin (MCH) determinationOrdered By: Jesse Barajas on 09-12-2024 MCH (RBC) [Entitic mass] 27.8 pg 27.0-32.0 [facility] Mean corpuscular hemoglobin concentration (MCHC) determinationOrdered By: Jesse Barajas on 09-12-2024 MCHC (RBC) [Mass/Vol] 34.7 g/dL 32-36 [facility] Mean platelet volume determi nationOrdered By: Jesse Barajas on 09-12-2024 Platelet mean volume (Bld) [Entitic vol] 9.6 fL 6.2-12.0 [facility] Monocyte percentageOrdered B y: Jesse Barajas on 09-12-2024 Monocytes/100 WBC (Bld) 3.8 % 0-10 [facility] Neutrophil percentageOrdered By: Jesse Barajas on 09-12-2024 Neutrophils/100 WBC (Bld) 78.2 % High 47-70 [facility] Nucleated red blood cell per centageOrdered By: Jesse Barajas on 09-12-2024 Nucleated RBC/100 WBC (Bld) [Ratio] 0 % 0-5 [facility] Platelet countOrdered By: Ayanna Barajas on 09-12-2024 Platelets (Bld) [#/Vol] 278 10*3/uL 150-450 [facility] Potassium measurement (mass/ volume)Ordered By: Marivel Danielson on 09-12-2024 Potassium (Unsp spec) [Mass/Vol] 4.2 mmol/L 3.3-5.1 [facility] RBC Auto (Bld) [#/Vol]Ordere d By: Jesse Barajas on 09-12-2024 RBC (Bld) [#/Vol] 5.18 10*6/uL 4.2-5.4 [facility] Screening total cholesterol/ high density lipoprotein (HDL) cholesterol ratioOrdered By: Jesse Barajas on 09-12-2024 Cholesterol.total/Choles terol in HDL [Mass ratio] 4.17 {ratio} [facility] Serum creatinine measurement (mass/volume)Ordered By: Marivel Danielson on 09-12-2024 Creatinine [Mass/Vol] 0.69 mg/dL Low 0.70-1.20 [facility] Serum globulin measurementOr dered By: Marivel Danielson on 09-12-2024 Globulin (S) [Mass/Vol] 3.3 g/dL 2.2-4.2 [facility] Serum glucose measurement (m ass/volume)Ordered By: Marivel Danielson on 09-12-2024 Glucose [Mass/Vol] 122 mg/dL High 70-99 [facility] Serum or plasma alanine pérez otransferase (ALT) measurementOrdered By: Marivel Danielson on 09-12-2024 ALT [Catalytic activity/Vol] 21 U/L <35 [facility] Serum or plasma albumin niraj urement (mass/volume)Ordered By: Marivel Danielson on 09-12-2024 Albumin [Mass/Vol] 4.5 g/dL 3.5-5.0 [facility] Serum or plasma albumin/glob ulin mass ratioOrdered By: Marivel Danielson on 09-12-2024 Albumin/Globulin [Mass ratio] 1.4 {ratio} 0.9-2.4 [facility] Serum or plasma alkaline candice sphatase measurementOrdered By: Marivel Danielson on 09-12-2024 ALP [Catalytic activity/Vol] 106 U/L High 35-104 [facility] Serum or plasma calcium niraj urement (mass/volume)Ordered By: Marivel Danielson on 09-12-2024 Calcium [Mass/Vol] 9.5 mg/dL 7.6-11.0 [facility] Serum or plasma cholesterol in HDL measurement (mass/volume)Ordered By: Jesse Barajas on 09-12-2024 Cholesterol in HDL [Mass/Vol] 44 mg/dL >40 [facility] Comment on above: National Cholesterol Education Program (NCEP) guidelines:<40 mg/dL: Low HDL-cholesterol (major risk factor for CHD)>= 60 mg/dL: High HDL-cholesterol (negative risk factor for CHD)HDL-cholesterol is affected by a number of factors, e.g. smoking, exercise, hormones, sex and age. Serum or plasma cholesterol measurement (mass/volume)Ordered By: Jesse Barajas on 09-12-2024 Cholesterol [Mass/Vol] 185 mg/dL <201 [facility] Comment on above: Cholesterol level, D esirable <200 mg/dLBorderline high cholesterol 200-239 mg/dLHigh cholesterol >=240 mg/dLRecommendations of the NCEP Adult Treatment Panel for the following risk-cutoff thresholds for the [place] population. Serum or plasma cortisol sam surement (mass/volume)Ordered By: Marivel Danielson on 09-12-2024 Cortisol [Mass/Vol] 0.51 ug/dL Low 6.02-18.40 [facility] Serum or plasma urea nitroge n measurement (mass/volume)Ordered By: Marivel Danielson on 09-12-2024 Urea nitrogen [Mass/Vol] 15 mg/dL 4-19 [facility] Sodium levelOrdered By: Leno Danielson on 09-12-2024 Sodium [Moles/Vol] 137 mmol/L 133-145 [facility] TSH DL <= 0.005 mIU/L QnOrde red By: Jesse Barajas on 09-12-2024 TSH Qn 1.260 uIU/mL 0.300-4.200 [facility] Thyroid Stim Hormone (TSH)on 09-12-2024 TSH 1.260 uIU/mL Normal 0.300-4.200 [facility] Comment on above: Performed By: #### L 501.9520, L500.4100, L100.0100 ####[facility] [address] [place], [place], [id number] Total proteinOrdered By: Arthur Danielson on 09-12-2024 Protein [Mass/Vol] 7.8 g/dL 5.9-8.4 [facility] Triglycerides measurementOrd ered By: Jesse Barajas on 09-12-2024 Triglyceride [Mass/Vol] 78 mg/dL <199 [facility] Comment on above: The drugs N-Acetylcy steine and Metamizole may falsely depress this assay. Normal range: <150 mg/dLBorderline High: 150-199 mg/dLHigh: 200-499 mg/dLVery High: >500 mg/dL White blood cell (WBC) count Ordered By: Jesse Barajas on 09-12-2024 WBC (Bld) [#/Vol] 9.1 10*3/uL 4.4-11.0 [facility] Internal Medicine Office Vis itocourtney 09-09-2024 Internal Medicine Office Visit [facility] [address] [place] [address] [place] [address] OFFICE VISIT Date of Service: 09/10/24 MR#: [id number] Acct: [id number] Name: NANCY MATOS Rep #: [id number] : 1990 Provider: Dr. 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 [facility] Medical History (Updated 09/10/24 @ 09:14 by [...] Type: coffee frequency: 1-2 times per week nick/buddhism: Jew seatbelt use: always do you feel safe [...] being so (more content not included)... Normal [facility] Calculated very low density lipoprotein (VLDL) cholesterol measurementOrdered By: Crissy Freire on 09-03-2024 Calculated very low density lipoprotein (VLDL) cholesterol measurement 30 mg/dL 5-40 [facility] Glucoseon 09-03-2024 Glucose [Mass/Vol] 103 mg/dL High 70-99 [facility] Comment on above: Performed By: #### L 501.0100, L500.4100, L501.9520, L506.1001, L501.9985 #### [facility] [address] [place], [place], [id number] Hemoglobin A1con 09-03-2024 HbA1c (Bld) [Mass fraction] 5.4 % Normal <=5.6 [facility] Comment on above: Result Comment: Norm al < 5.7 % Prediabetic 5.7 - 6.4 % Diabetic >or= 6.5 % Please note range changes. Performed By: #### L 501.0100, L500.4100, L501.9520, L506.1001, L501.9985 #### [facility] [address] [place], [place], [id number] Hemoglobin A1c percentageOrd ered By: Crissy Freire on 09-03-2024 HbA1c (Bld) [Mass fraction] 5.4 % <5.7 [facility] Comment on above: Normal < 5.7 % Predi abetic 5.7 - 6.4 % Diabetic >or= 6.5 % Please note range changes. LDL calc ser/plasOrdered By: Crissy Freire on 09-03-2024 Cholesterol in LDL [Mass/Vol] 125 mg/dL [facility] Comment on above: Ihdayggyyt=015-597 m g/dL & Higher Wepx=102 mg/dL or greater Lipid Profileon 09-03-2024 CHOL:HDL 5.03 Normal [facility] Comment on above: Performed By: #### L 501.0100, L500.4100, L501.9520, L506.1001, L501.9985 #### [facility] [address] [place], [address] Cholesterol [Mass/Vol] 193 mg/dL Normal <=200 [facility] Comment on above: Result Comment: Chol esterol level, Desirable <200 mg/dL Borderline high cholesterol 200-239 mg/dL High cholesterol >=240 mg/dL Recommendations of the NCEP Adult Treatment Panel for the following risk-cutoff thresholds for the [place] population. Performed By: #### L 501.0100, L500.4100, L501.9520, L506.1001, L501.9985 #### [facility] [address] [place], [address] Cholesterol in HDL [Mass/Vol] 38 mg/dL Low [facility] Comment on above: Result Comment: Monie onal Cholesterol Education Program (NCEP) guidelines: <40 mg/dL: Low HDL-cholesterol (major risk factor for CHD) >= 60 mg/dL: High HDL-cholesterol (negative risk factor for CHD) HDL-cholesterol is affected by a number of factors, e.g. smoking, exercise, hormones, sex and age. Performed By: #### L 501.0100, L500.4100, L501.9520, L506.1001, L501.9985 #### [facility] [address] [place], [address] Cholesterol in LDL [Mass/Vol] 125 mg/dL Normal [facility] Comment on above: Result Comment: Bord ietohn=217-232 mg/dL Higher Mcmc=385 mg/dL or greater Performed By: #### L 501.0100, L500.4100, L501.9520, L506.1001, L501.9985 #### [facility] [address] [place], [place], [address] Cholesterol in VLDL [Mass/Vol] 30 mg/dL Normal 5-40 [facility] Comment on above: Performed By: #### L 501.0100, L500.4100, L501.9520, L506.1001, L501.9985 #### [facility] [address] [place], [place], [address] Triglyceride [Mass/Vol] 150 mg/dL Normal [facility] Comment on above: Result Comment: The drugs N-Acetylcysteine and Metamizole may falsely depress this assay. Normal range: <150 mg/dL Borderline High: 150-199 mg/dL High: 200-499 mg/dL Very High: >500 mg/dL Performed By: #### L 501.0100, L500.4100, L501.9520, L506.1001, L501.9985 #### [facility] [address] [place], [place], [address] Screening total cholesterol/ high density lipoprotein (HDL) cholesterol ratioOrdered By: Crissy Freire on 09-03-2024 Cholesterol.total/Choles terol in HDL [Mass ratio] 5.03 {ratio} [facility] Serum glucose measurement (m ass/volume)Ordered By: Crissy Freire on 09-03-2024 Glucose [Mass/Vol] 103 mg/dL High 70-99 [facility] Serum or plasma cholesterol in HDL measurement (mass/volume)Ordered By: Crissy Freire on 09-03-2024 Cholesterol in HDL [Mass/Vol] 38 mg/dL Low >40 [facility] Comment on above: National Cholesterol Education Program (NCEP) guidelines:<40 mg/dL: Low HDL-cholesterol (major risk factor for CHD)>= 60 mg/dL: High HDL-cholesterol (negative risk factor for CHD)HDL-cholesterol is affected by a number of factors, e.g. smoking, exercise, hormones, sex and age. Serum or plasma cholesterol measurement (mass/volume)Ordered By: Crissy Freire on 09-03-2024 Cholesterol [Mass/Vol] 193 mg/dL <201 [facility] Comment on above: Cholesterol level, D esirable <200 mg/dLBorderline high cholesterol 200-239 mg/dLHigh cholesterol >=240 mg/dLRecommendations of the NCEP Adult Treatment Panel for the following risk-cutoff thresholds for the [place] population. TSH DL <= 0.005 mIU/L QnOrde red By: Crissy Freire on 09-03-2024 TSH Qn 2.180 uIU/mL 0.300-4.200 [facility] Thyroid Stim Hormone (TSH)on 09-03-2024 TSH 2.180 uIU/mL Normal 0.300-4.200 [facility] Comment on above: Performed By: #### L 501.0100, L500.4100, L501.9520, L506.1001, L501.9985 #### [facility] [address] [place], [place], [address] Triglycerides measurementOrd ered By: Crissy Freire on 09-03-2024 Triglyceride [Mass/Vol] 150 mg/dL <199 [facility] Comment on above: The drugs N-Acetylcy steine and Metamizole may falsely depress this assay. Normal range: <150 mg/dLBorderline High: 150-199 mg/dLHigh: 200-499 mg/dLVery High: >500 mg/dL Vitamin D,25 Hydroxyon 09-03 Vitamin D 25-OH 32.9 ng/mL Normal 30-100 [facility] Comment on above: Result Comment: Jacklyn min D Status Deficiency: <20 ng/mL (50nmol/L) Insufficiency: 20-30 ng/mL (50-75 nmol/L) Sufficiency: 30-100 ng/mL (75-250 nmol/L) Toxicity: >100 ng/mL (>250 nmol/L) Performed By: #### L 501.0100, L500.4100, L501.9513, L506.1001, L501.9985 #### [facility] [address], [address] Supervisor Customer Complaint Service Office Visit Reporton 09-02-2024 Supervisor Customer Complaint Service Office Visit Report [facility] [address], [address] [place] [address] OFFICE VISIT Date of Service: 09/02/24 MR#: [id number] Acct: [id number] Name: SHAWNANANCY FAHAD Rep #: [id number] : 1990 Provider: Dr. 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 Normal [facility] Supervisor Customer Complaint Service Office Visit Reporton 08-07-2024 Supervisor Customer Complaint Service Office Visit Report [facility] [address], [address] [place] [address] OFFICE VISIT Date of Service: 08/07/24 MR#: [id number] Acct: [id number] Name: NANCY MATOS Rep #: [id number] : 1990 Provider: Dr. Crissy An DO Age/Sex: 33/F [place] [facility] [place]: Signed Intake Vital Signs 07/22/24 09:37 08/07/24 14:07 08/07/24 14:09 Height 5 ft 4 in 5 ft 4 in 5 ft 4 in Weight: 263 lb 4 oz BMI 45.1 BP 123/85 H Intake Visit Reasons: ER FU- AUB *copay $30 Statement Request Clerk Required: No Is patient in pain?: No [...] Type: coffee frequency: 1-2 times per week nick/buddhism: Jew seatbelt use: always do you feel safe at home: Yes additional social history: - Robin (ODOT) HPI ER FU- AUB *copay $30 Details: [...] Date Name GA/Weeks Outcome Route Bth Weight [facility] 01/17[facility]20 Fahad 37 live - full term 4lbs 3oz Female Guillaume Kelly 07/20/23 Wilbur 38 live - full term 6lbs 15oz Male [facility] Delivery Date: 01/17/20 Last Updated by: Mary [...] and Movement: (more content not included)... Normal [facility] Absolute lymphocyte countOrd ered By: Abram Watters on 07-22-2024 Lymphocytes Auto (Unsp spec) [#/Vol] 2.18 10*3/uL 0.83-4.51 [facility] Absolute neutrophil countOrd ered By: Abram Watters on 07-22-2024 Neutrophils (Bld) [#/Vol] 6.0 10*3/uL 2.0-7.7 [facility] Automated blood erythrocyte countOrdered By: Abramlela Watters on 07-22-2024 RBC (Bld) [#/Vol] 5.24 10*6/uL Normal 4.2-5.4 [facility] Comment on above: Performed By: #### L 700.8000, L100.0100 #### [facility] [address] [place], [address] Automated blood hematocrit ( percentage)Ordered By: Abram Vegao on 07-22-2024 Hematocrit (Bld) [Volume fraction] 42.7 % Normal 37-47 [facility] Comment on above: Performed By: #### L 700.8000, L100.0100 #### [facility] [address] [place], [address] Automated lymphocyte count a s percentage of total leukocytesOrdered By: Abram Watters on 07-22-2024 Lymphocytes/100 WBC Auto (Unsp spec) 24.5 % 19-41 [facility] Basophil percentageOrdered B y: Abram Watters on 07-22-2024 Basophils/100 WBC (Bld) 0.4 % Normal 0-1 [facility] Comment on above: Performed By: #### L 700.8000, L100.0100 #### [facility] [address] [place], [address] CBC W/Diff, Automatedon 07-09 Absolute Lymph 2.18 X10 3/uL Normal 0.83-4.51 [facility] Comment on above: Performed By: #### L 700.8000, L100.0100 #### [facility] [address] [place], [address] Absolute Neut 6.0 X10 3/uL Normal 2.0-7.7 [facility] Comment on above: Performed By: #### L 700.8000, L100.0100 #### [facility] [address] [place], [address] IG% 0.400 Normal 0.0-0.9 [facility] Comment on above: Result Comment: IG% - Immature Granulocytes (promyelocytes, myelocytes and metamyelocytes) > 1% indicates that a LEFT SHIFT is Present. Performed By: #### L 700.8000, L100.0100 #### [facility] [address] [place], [address] Lymphocytes/100 WBC (Bld) 24.5 % Normal 19-41 [facility] Comment on above: Performed By: #### L 700.8000, L100.0100 #### [facility] [address] [place], [address] Nucleated RBC (Bld) [#/Vol] 0 10*3/uL Normal 0-5 [facility] Comment on above: Performed By: #### L 700.8000, L100.0100 #### [facility] [address] [place], [address] RDW SD 36.5 fl Normal 35.1-43.9 [facility] Comment on above: Performed By: #### L 700.8000, L100.0100 #### [facility] [address] [place], [address] Emergency Department Summary on 07-22-2024 Emergency Department Summary [facility] Medical Records Department [address] [place] [address] Emergency Department Summary 07/22/24 MR#: [id number] Acct: [id number] Name: NANCY MATOS Rep #: [id number] : 1990 33 From: Abram Watters MD [...] Maximum Severity: Moderate Worsened by: Movement and [place] Relieved by: Remaining Still Bleeding Issue: Positive [...] antithrombotic or anticoagulant. 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 Elaina Castanon. Office recommended she come [...] alcohol intake (more content not included)... Normal [facility] Eosinophil percentageOrdered By: Abramlela Watters on 07-22-2024 Eosinophils/100 WBC (Bld) 1.7 % Normal 0-5 [facility] Comment on above: Performed By: #### L 700.8000, L100.0100 #### [facility] [address] [place], [address] Erythrocyte distribution wid th ratioOrdered By: Abramlela Watters on 07-22-2024 Erythrocyte distribution width (RBC) [Ratio] 12.5 % Normal 11.6-14.6 [facility] Comment on above: Performed By: #### L 700.8000, L100.0100 #### [facility] [address] [place], [address] Erythrocyte distribution wid th standard deviationOrdered By: Abramlela Watters on 07-22-2024 Erythrocyte distribution width (RBC) [Ratio] 36.5 fl 35.1-43.9 [facility] Hemoglobin measurementOrdere d By: Abram Watters on 07-22-2024 Hemoglobin (Bld) [Mass/Vol] 14.9 g/dL Normal 12.0-15.0 [facility] Comment on above: Performed By: #### L 700.8000, L100.0100 #### [facility] [address] [place], [address] Immature granulocytes/100 WB C Auto (Bld)Ordered By: Abram Watters on 07-22-2024 Immature granulocytes/100 WBC (Bld) 0.400 % 0.0-0.9 [facility] Comment on above: IG% - Immature Granu locytes (promyelocytes, myelocytes and metamyelocytes) > 1% indicates that a LEFT SHIFT is Present. MCV (mean corpuscular volume ) determinationOrdered By: Abram Watters on 07-22-2024 MCV (RBC) [Entitic vol] 81.5 fL Normal 81-99 [facility] Comment on above: Performed By: #### L 700.8000, L100.0100 #### [facility] [address] [place], [address] Mean corpuscular hemoglobin (MCH) determinationOrdered By: Abram Watters on 07-22-2024 MCH (RBC) [Entitic mass] 28.4 pg Normal 27.0-32.0 [facility] Comment on above: Performed By: #### L 700.8000, L100.0100 #### [facility] [address] [place], [address] Mean corpuscular hemoglobin concentration (MCHC) determinationOrdered By: Abram Watters on 07-22-2024 MCHC (RBC) [Mass/Vol] 34.9 g/dL Normal 32-36 [facility] Comment on above: Performed By: #### L 700.8000, L100.0100 #### [facility] [address] [place], [address] Mean platelet volume determi nationOrdered By: Abram Watters on 07-22-2024 Platelet mean volume (Bld) [Entitic vol] 9.5 fL Normal 6.2-12.0 [facility] Comment on above: Performed By: #### L 700.8000, L100.0100 #### [facility] [address] [place], [address] Monocyte percentageOrdered B y: Abram Watters on 07-22-2024 Monocytes/100 WBC (Bld) 5.5 % Normal 0-10 [facility] Comment on above: Performed By: #### L 700.8000, L100.0100 #### [facility] [address] [place], [address] Neutrophil percentageOrdered By: Abram Vegao on 07-22-2024 Neutrophils/100 WBC (Bld) 67.5 % Normal 47-70 [facility] Comment on above: Performed By: #### L 700.8000, L100.0100 #### [facility] [address] [place], [place], [address] Nucleated red blood cell per centageOrdered By: Abram Watters on 07-22-2024 Nucleated RBC/100 WBC (Bld) [Ratio] 0 % 0-5 [facility] Platelet countOrdered By: Basil Watters on 07-22-2024 Platelets (Bld) [#/Vol] 271 10*3/uL Normal 150-450 [facility] Comment on above: Performed By: #### L 700.8000, L100.0100 #### [facility] [address] [place], [address] Serum human chorionic gonado tropin detection for pregnancyOrdered By: Abram Watters on 07-22-2024 HCG ( test) Ql < 1 mIU/mL <9 [facility] Comment on above: Gestational Age0.2-1 Week: 5-50 mIU/mL1-2 Weeks: 50-500 mIU/mL2-3 Weeks: 100-5000 mIU/mL3-4 Weeks: 500-10,000 mIU/mL4-5 Weeks:1000-50,000 mIU/mL5-6 Weeks: 10,000-100,000 mIU/mL6-8 Weeks: 15,000-200,000 mIU/mL2-3 Months:10,000-100,000 mIU/mL Transvaginal Non-on 07-22-2024 Transvaginal Non- [facility] Imaging Services [address] [place], [place] [address] Transvaginal Non- MR#: [id number] Acct: [id number] Name: SHAWNANANCY FAHAD Rep #: [id number] : 1990 F 33 From: Keith Stapleton MD PCP: Dr. Marivel Danielson MD Status: REG ER Study: Transvaginal Non- Date of Exam: Exam# [id number] Ordering Dr: Abram Watters MD PROCEDURE: TRANSVAGINAL [...] Marivel Danielson MD; Dr. 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, [address] hCG Titer Quant., Serumon HCG QUANT. < 1 Normal <9 non-preg [facility] Comment on above: Result Comment: Gest ational Age 0.2-1 Week: 5-50 mIU/mL 1-2 Weeks: 50-500 mIU/mL 2-3 Weeks: 100-5000 mIU/mL 3-4 Weeks: 500-10,000 mIU/mL 4-5 Weeks:1000-50,000 mIU/mL 5-6 Weeks: 10,000-100,000 mIU/mL 6-8 Weeks: 15,000-200,000 mIU/mL 2-3 Months:10,000-100,000 mIU/mL Performed By: #### L 700.8000, L100.0100 #### [facility] [address] [place], [address] Urgent Care Visit Reporton 0 06-02-2024 Urgent Care Visit Report [facility] [address], [address] [place] [address] OFFICE VISIT Date of Service: 06/02/24 MR#: [id number] Acct: [id number] Name: NANCY MATOS Rep #: [id number] : 1990 Provider: CIERA Chan Age/Sex: 33/F Location[place] [facility] Status: Signed Intake Vital Signs 04/10/24 10:42 [...] Chief Complaint: left ear pain, congest, dizzy Statement Request Clerk Required: No Is patient in pain?: Yes [...] s/s for over a week [facility] Medical History PCOS (polycystic ovarian syndrome) GBS [...] Type: coffee frequency: 1-2 times per week nick/buddhism: Jew seatbelt use: always do you feel safe [...] eyes a (more content not included)... Normal [facility] Internal Medicine Office Vis greg 04-10-2024 Internal Medicine Office Visit [facility] [address] [place] [address] [place] [address] OFFICE VISIT Date of Service: 04/10/24 MR#: [id number] Acct: [id number] Name: NANCY MATOS Rep #: [id number] : 1990 Provider: CIERA Noyola Age/Sex: 33/F Location: [facility] Status: Signed Intake Vital Signs 12/19/23 14:24 [...] WITH JAGJIT Chief Complaint: 4 M FU Statement Request Clerk Required: No Accompanied by: Self Is patient [...] Type: coffee frequency: 1-2 times per week nick/buddhism: Jew seatbelt use: always do you feel safe at home: Yes additional social history: - Robin (ODOT) HPI HPI Chief Complaint: 3 M FU [...] hearing, ear (more content not included)... Normal [facility] Progress Noteon 09-30-2023 Foreign Policy Officer Authentication Interface Message Text Assessment Patient: Nancy Matos Chief Complaint: Latch Difficulties Difficulty of mother [...] affect appropriate Nipple exam pre-feed: - Right: Flat and everted - Left: Flat and everted Nipple exam post-feed: - Right: erect - Left: erect Breast exam: - Right: normal shape, tissue extends to sternum, no erythema or edema, no mass - Left: normal shape, tissue extends to sternum, no erythema or edema, no mass I Spent 30 minutes on this patient in direct [id number] care, chart review of prior notes, and documentation. Normal [facility] Progress Noteon 09-16-2023 Foreign Policy Officer Authentication Interface Message Text Assessment Patient: Nancy [...] ability to transfer milk. Plan To get Latta back to breast: Trying to feed him [...] until after they got home. He saw [facility] at 9d old and he transferred 40ml [...] Gen: aler (more content not included)... Normal [facility] Basophil percentageOrdered B y: Elaina Castanon on 07-19-2023 Hemoglobin (Bld) [Mass/Vol] 10.2 g/dL 12.0-15.0 [facility] WBC (Bld) [#/Vol] 8.5 10*3/uL 4.4-11.0 [facility] Determination of erythrocyte mean corpuscular volume (MCV)Ordered By: Elaina Castanon on 07-19-2023 MCV (RBC) [Entitic vol] 80.2 fL 81-99 [facility] Erythrocyte distribution wid th ratioOrdered By: Elaina Castanon on 07-19-2023 Erythrocyte distribution width (RBC) [Ratio] 14.0 % 11.6-14.6 [facility] Erythrocyte distribution wid th standard deviationOrdered By: Elaina Castanon on 07-19-2023 Erythrocyte distribution width (RBC) [Entitic vol] 40.7 fL 35.1-43.9 [facility] Hematocrit Auto (Bld) [Volum e fraction]Ordered By: Elaina Castanon on 07-19-2023 Hematocrit (Bld) [Volume fraction] 31.2 % 37-47 [facility] - Hematology and Cell countsOrdered By: Elaina Castanon on 07-19-2023 MCH (RBC) [Entitic mass] 26.2 pg 27.0-32.0 [facility] MCHC (RBC) [Mass/Vol] 32.7 g/dL 32-36 [facility] Platelet mean volume (Bld) [Entitic vol] 10.7 fL 6.2-12.0 [facility] Platelets (Bld) [#/Vol] 184 10*3/uL 150-450 [facility] RBC Auto (Bld) [#/Vol]Ordere d By: Elaina Castanon on 07-19-2023 RBC (Bld) [#/Vol] 3.89 10*6/uL 4.2-5.4 [facility] Thin prep Papanicolaou smear with manual screeningOrdered By: Elaina Castanon on 07-19-2023 Thin prep Papanicolaou smear with manual screening 81 mg/dL 74-106 [facility] Comment on above: MANAGEMENT OF PATIEN T CARE PER NURSING PROTOCOL Absolute lymphocyte countOrd ered By: Elaina Castanon on 07-18-2023 Lymphocytes Auto (Unsp spec) [#/Vol] 1.84 10*3/uL 0.83-4.51 [facility] Automated lymphocyte count a s percentage of total leukocytesOrdered By: Elaina Castanon on 07-18-2023 Lymphocytes/100 WBC Auto (Unsp spec) 22.1 % 19-41 [facility] Basophil percentageOrdered B y: Elaina Castanon on 07-18-2023 Basophils/100 WBC (Bld) 0.1 % 0-1 [facility] Eosinophils/100 WBC (Bld) 0.7 % 0-5 [facility] Monocytes/100 WBC (Bld) 7.7 % 0-10 [facility] Neutrophils (Bld) [#/Vol] 5.7 10*3/uL 2.0-7.7 [facility] Neutrophils/100 WBC (Bld) 69.0 % 47-70 [facility] Immature granulocytes/100 WB C Auto (Bld)Ordered By: Elaina Castanon on 07-18-2023 Immature granulocytes/100 WBC (Bld) 0.400 % 0.0-0.9 [facility] Comment on above: IG% - Immature Granu locytes (promyelocytes, myelocytes and metamyelocytes) > 1% indicates that a LEFT SHIFT is Present. Laboratory - Hematology and Cell countsOrdered By: Elaina Castanon on 07-18-2023 Nucleated RBC/100 WBC (Bld) [Ratio] 0 % 0-5 [facility] Serum Treponema species anti body detectionOrdered By: Elaina Castanon on 07-18-2023 Treponema sp Ab Ql (S) Non-Reactive [facility] - Chemistry and C hemistry - challengeon 07-12-2023 Glucose Ql (U) Negative [facility] - Urinalysison Protein Ql (U) Negative [facility] - Chemistry and C hemistry - challengeon 07-04-2023 Glucose Ql (U) Negative [facility] - Urinalysison Protein Ql (U) Negative [facility] No Panel InformationOrdered By: Coco Moore on 07-04-2023 Group B Streptococcus Culture Streptococcus agalactiae (B) [facility] - Chemistry and C hemistry - challengeon 06-21-2023 Glucose Ql (U) Negative [facility] - Urinalysison Protein Ql (U) Negative [facility] Basophil percentageOrdered B y: Lucille Gaytan on 06-18-2023 Basophil percentage 0-5 SEEN /hpf 0-5 [facility] Basophil percentageOrdered B y: Elaina Castanon on 06-18-2023 Hemoglobin (Bld) [Mass/Vol] 13.0 g/dL 12.0-15.0 [facility] WBC (Bld) [#/Vol] 11.5 10*3/uL 4.4-11.0 [facility] Bilirubin Test strip Ql (U)O rdered By: Lucille Gaytan on 06-18-2023 Bilirubin Ql (U) Negative Negative [facility] Culture, urineOrdered By: Zan Gaytan on 06-18-2023 Bacteria identified Cx Nom (U) Culture exhibits no growth. [facility] Determination of erythrocyte mean corpuscular volume (MCV)Ordered By: Elaina Castanon on 06-18-2023 MCV (RBC) [Entitic vol] 78.6 fL 81-99 [facility] Erythrocyte distribution wid th ratioOrdered By: Elaina Castanon on 06-18-2023 Erythrocyte distribution width (RBC) [Ratio] 13.5 % 11.6-14.6 [facility] Erythrocyte distribution wid th standard deviationOrdered By: Elaina Castanon on 06-18-2023 Erythrocyte distribution width (RBC) [Entitic vol] 38.4 fL 35.1-43.9 [facility] fibronectinOrdered By: Lucille Gaytan on 06-18-2023 Fibronectin. (Vag fld) [Mass/Vol] Negative [facility] Hematocrit Auto (Bld) [Volum e fraction]Ordered By: Elaina Castanon on 06-18-2023 Hematocrit (Bld) [Volume fraction] 39.4 % 37-47 [facility] Ketones Test strip Ql (U)Ord ered By: Lucille Gaytan on 06-18-2023 Ketones Ql (U) 50 mg/dl Negative [facility] [facility] - Chemistry and C hemistry - challengeOrdered By: Elaina Castanon on 06-18-2023 ALT [Catalytic activity/Vol] 20 U/L 13-56 [facility] - Hematology and Cell countsOrdered By: Elaina Castanon on 06-18-2023 MCH (RBC) [Entitic mass] 25.9 pg 27.0-32.0 [facility] MCHC (RBC) [Mass/Vol] 33.0 g/dL 32-36 [facility] Platelet mean volume (Bld) [Entitic vol] 10.2 fL 6.2-12.0 [facility] Platelets (Bld) [#/Vol] 234 10*3/uL 150-450 [facility] Mucus LM Ql (Urine sed)Order ed By: Lucille Gaytan on 06-18-2023 Mucus Ql (Urine sed) 0 SEEN /hpf [facility] Nitrite Test strip Ql (U)Ord ered By: Lucille Gaytan on 06-18-2023 Nitrite Ql (U) Negative Negative [facility] No Panel InformationOrdered By: Lucille Gaytan on 06-18-2023 Fibrinogen 510 mg/dl 203-444 [facility] Urine RBC 0 SEEN /hpf 0-5 [facility] No Panel InformationOrdered By: Elaina Castanon on 06-18-2023 Estimated GFR (MDRD) Amer 167 mL/min >60 [facility] Comment on above: GFR Calc Estimated GFR (MDRD) Non-Af Amer 138 mL/min >60 [facility] Comment on above: Non- GFR Calc Protein Test strip Ql (U)Ord ered By: Lucille Gaytan on 06-18-2023 Protein Ql (U) Negative Negative [facility] RBC Auto (Bld) [#/Vol]Ordere d By: Elaina Castanon on 06-18-2023 RBC (Bld) [#/Vol] 5.01 10*6/uL 4.2-5.4 [facility] Serum or plasma creatinine m easurement (mass/volume)Ordered By: Elaina Castanon on 06-18-2023 Creatinine [Mass/Vol] 0.54 mg/dL 0.55-1.02 [facility] Comment on above: The validity of the calculated GFR & GFRAA in patients over 70 years has not been determined. Clinical correlation is essential. Serum or plasma uric acid me asurement (mass/volume)Ordered By: Elaina Castanon on 06-18-2023 Urate [Mass/Vol] 5.6 mg/dL 2.6-6.0 [facility] Comment on above: The drugs N-Acetylcy steine and Metamizole may falsely depress this assay. Squamous epithelial cells de tection in urine sediment by light microscopyOrdered By: Lucille Gaytan on 06-18-2023 Epithelial cells.squamous LM Ql (Urine sed) 5-10 SEEN /hpf 5-10 [facility] Thin prep Papanicolaou smear with manual screeningOrdered By: Elaina Castanon on 06-18-2023 Protein (U) [Mass/Vol] 18.4 mg/dL 0.0-11.8 [facility] Thin prep Papanicolaou smear with manual screening 13 U/L 15-37 [facility] Urine blood detectionOrdered By: Lucille Gaytan on 06-18-2023 RBC Ql (U) Negative Negative [facility] Urine clarityOrdered By: Mihir Gaytan on 06-18-2023 Clarity (U) Sl. Cloudy Clear [facility] Urine color determinationOrd ered By: Lucille Gaytan on 06-18-2023 Color (U) Yellow Yellow [facility] Urine creatinine measurement (mass/volume)Ordered By: Elaina Castanon on 06-18-2023 Creatinine (U) [Mass/Vol] 63.70 mg/dL NO RANGE EST. [facility] Urine glucose detectionOrder ed By: Lucille Gatyan on 06-18-2023 Glucose Ql (U) Normal mg/dl Normal [facility] Urine leukocyte esterase det ection by dipstickOrdered By: Lucille Gaytan on 06-18-2023 Leukocyte esterase Test strip Ql (U) 100 /ul Negative [facility] Urine pHOrdered By: Lucille riley on 06-18-2023 pH (U) 7.0 [pH] 5.0 - 8.0 [facility] Urine protein/creatinine mas s ratioOrdered By: Elaina Castanon on 06-18-2023 Protein/Creatinine (U) [Mass ratio] 289 mg/g CRE 0-200 [facility] Urine sediment bacteria coun t by microscopy (number/high power field)Ordered By: Lucille Gaytan on 06-18-2023 Bacteria LM.HPF (Urine sed) [#/Area] 0 /[HPF] None Seen [facility] Urine specific gravity measu rementOrdered By: Lucille Gaytan on 06-18-2023 Specific gravity (U) [Rel density] 1.010 1.002-1.030 [facility] Urine urobilinogen measureme ntOrdered By: Lucille Gaytan on 06-18-2023 Urobilinogen Ql (U) Normal mg/dl Normal [facility] Absolute lymphocyte countOrd ered By: Elaina Castanon on 06-14-2023 Lymphocytes Auto (Unsp spec) [#/Vol] 1.93 10*3/uL 0.83-4.51 [facility] Automated lymphocyte count a s percentage of total leukocytesOrdered By: Elaina Castanon on 06-14-2023 Lymphocytes/100 WBC Auto (Unsp spec) 23.2 % 19-41 [facility] Basophil percentageOrdered B y: Elaina Castanon on 06-14-2023 Basophils/100 WBC (Bld) 0.1 % 0-1 [facility] Bilirubin [Mass/Vol] 0.20 mg/dL 0.20-1.00 [facility] Comment on above: For patients on eltr ombopag therapy, use of Dimension [place] TBIL is not recommended. Chloride [Moles/Vol] 109 mmol/L 98-107 [facility] Eosinophils/100 WBC (Bld) 1.0 % 0-5 [facility] Glucose [Mass/Vol] 78 mg/dL 74-106 [facility] Hemoglobin (Bld) [Mass/Vol] 12.3 g/dL 12.0-15.0 [facility] Monocytes/100 WBC (Bld) 8.1 % 0-10 [facility] Neutrophils (Bld) [#/Vol] 5.6 10*3/uL 2.0-7.7 [facility] Neutrophils/100 WBC (Bld) 67.1 % 47-70 [facility] Potassium [Moles/Vol] 3.7 mmol/L 3.5-5.1 [facility] Protein [Mass/Vol] 7.0 g/dL 6.4-8.2 [facility] Sodium [Moles/Vol] 138 mmol/L 136-145 [facility] WBC (Bld) [#/Vol] 8.3 10*3/uL 4.4-11.0 [facility] Determination of erythrocyte mean corpuscular volume (MCV)Ordered By: Elaina Castanon on 06-14-2023 MCV (RBC) [Entitic vol] 79.5 fL 81-99 [facility] Erythrocyte distribution wid th ratioOrdered By: Elaina Castanon on 06-14-2023 Erythrocyte distribution width (RBC) [Ratio] 13.7 % 11.6-14.6 [facility] Erythrocyte distribution wid th standard deviationOrdered By: Elaina Castanon on 06-14-2023 Erythrocyte distribution width (RBC) [Entitic vol] 39.3 fL 35.1-43.9 [facility] Hematocrit Auto (Bld) [Volum e fraction]Ordered By: Elaina Castanon on 06-14-2023 Hematocrit (Bld) [Volume fraction] 36.1 % 37-47 [facility] Immature granulocytes/100 WB C Auto (Bld)Ordered By: Elaina Castanon on 06-14-2023 Immature granulocytes/100 WBC (Bld) 0.500 % 0.0-0.9 [facility] Comment on above: IG% - Immature Granu locytes (promyelocytes, myelocytes and metamyelocytes) > 1% indicates that a LEFT SHIFT is Present. Laboratory - Chemistry and C hemistry - challengeOrdered By: Elaina Castanon on 06-14-2023 Albumin/Globulin [Mass ratio] 0.7 {ratio} 0.9-2.4 [facility] ALP [Catalytic activity/Vol] 105 U/L 45-117 [facility] ALT [Catalytic activity/Vol] 22 U/L 13-56 [facility] CO2 [Moles/Vol] 20.0 mmol/L 21.0-32.0 [facility] Globulin (S) [Mass/Vol] 4.1 g/dL 2.2-4.2 [facility] Urea nitrogen/Creatinine [Mass ratio] 14.8 mg/mg 10-20 [facility] - Chemistry and C hemistry - challengeon 06-14-2023 Glucose Ql (U) Negative [facility] - Hematology and Cell countsOrdered By: Elaina Castanon on 06-14-2023 MCH (RBC) [Entitic mass] 27.1 pg 27.0-32.0 [facility] MCHC (RBC) [Mass/Vol] 34.1 g/dL 32-36 [facility] Nucleated RBC/100 WBC (Bld) [Ratio] 0 % 0-5 [facility] Platelet mean volume (Bld) [Entitic vol] 10.6 fL 6.2-12.0 [facility] Platelets (Bld) [#/Vol] 235 10*3/uL 150-450 [facility] - Urinalysison Protein Ql (U) Negative [facility] No Panel InformationOrdered By: Elaina Castanon on 06-14-2023 Estimated GFR (MDRD) Amer 131 mL/min >60 [facility] Comment on above: GFR Calc Estimated GFR (MDRD) Non-Af Amer 108 mL/min >60 [facility] Comment on above: Non- GFR Calc RBC Auto (Bld) [#/Vol]Ordere d By: Elaina Castanon on 06-14-2023 RBC (Bld) [#/Vol] 4.54 10*6/uL 4.2-5.4 [facility] Serum or plasma calcium niraj urement (mass/volume)Ordered By: Elaina Castanon on 06-14-2023 Calcium [Mass/Vol] 9.0 mg/dL 8.5-10.1 [facility] Serum or plasma creatinine m easurement (mass/volume)Ordered By: Elaina Castanon on 06-14-2023 Creatinine [Mass/Vol] 0.67 mg/dL 0.55-1.02 [facility] Comment on above: The validity of the calculated GFR & GFRAA in patients over 70 years has not been determined. Clinical correlation is essential. Serum or plasma urea nitroge n measurement (mass/volume)Ordered By: Elaina Castanon on 06-14-2023 Urea nitrogen [Mass/Vol] 10 mg/dL 7-18 [facility] Thin prep Papanicolaou smear with manual screeningOrdered By: Elaina Castanon on 06-14-2023 Protein (U) [Mass/Vol] 26.7 mg/dL 0.0-11.8 [facility] Thin prep Papanicolaou smear with manual screening 2.9 g/dL 3.2-5.0 [facility] Thin prep Papanicolaou smear with manual screening 19 U/L 15-37 [facility] Thin prep Papanicolaou smear with manual screening 9 5-15 [facility] Urine creatinine measurement (mass/volume)Ordered By: Elaina Castanon on 06-14-2023 Creatinine (U) [Mass/Vol] 106.00 mg/dL NO RANGE EST. [facility] Urine protein/creatinine mas s ratioOrdered By: Elaina Castanon on 06-14-2023 Protein/Creatinine (U) [Mass ratio] 252 mg/g CRE 0-200 [facility] - Chemistry and C hemistry - challengeon 06-07-2023 Glucose Ql (U) Negative [facility] - Urinalysison Protein Ql (U) Negative [facility] - Chemistry and C hemistry - challengeon 05-31-2023 Glucose Ql (U) Negative [facility] - Urinalysison Protein Ql (U) Negative [facility] Basophil percentageOrdered B y: Crissy Freire on 05-25-2023 Basophil percentage 5-10 SEEN /hpf 0-5 [facility] Bilirubin Test strip Ql (U)O rdered By: Crissy Freire on 05-25-2023 Bilirubin Ql (U) Negative Negative [facility] Culture, urineOrdered By: Greg Freire on 05-25-2023 Bacteria identified Cx Nom (U) Positive [facility] Ketones Test strip Ql (U)Ord ered By: Crissy Freire on 05-25-2023 Ketones Ql (U) 15 mg/dl Negative [facility] Mucus LM Ql (Urine sed)Order ed By: Crissy Freire on 05-25-2023 Mucus Ql (Urine sed) 0 SEEN /hpf [facility] Nitrite Test strip Ql (U)Ord ered By: Crissy Freire on 05-25-2023 Nitrite Ql (U) Negative Negative [facility] No Panel InformationOrdered By: Crissy Freire on 05-25-2023 Urine RBC 0 SEEN /hpf 0-5 [facility] Vaginal Amniotic Fluid Detection Negative Negative [facility] Comment on above: Amniotic fluid not p resent indicates No Rupture of FetalMembranes at time of specimen collection. Protein Test strip Ql (U)Ord ered By: Crissy Freire on 05-25-2023 Protein Ql (U) 15 mg/dl Negative [facility] Squamous epithelial cells de tection in urine sediment by light microscopyOrdered By: Crissy Freire on 05-25-2023 Epithelial cells.squamous LM Ql (Urine sed) 0-5 SEEN /hpf 5-10 [facility] Urine blood detectionOrdered By: Crissy Freire on 05-25-2023 RBC Ql (U) Negative Negative [facility] Urine clarityOrdered By: Kinga Freire on 05-25-2023 Clarity (U) Clear Clear [facility] Urine color determinationOrd ered By: Crissy Freire on 05-25-2023 Color (U) Yellow Yellow [facility] Urine glucose detectionOrder ed By: Crissy Freire on 05-25-2023 Glucose Ql (U) Normal mg/dl Normal [facility] Urine leukocyte esterase det ection by dipstickOrdered By: Crissy Freire on 05-25-2023 Leukocyte esterase Test strip Ql (U) 100 /ul Negative [facility] Urine pHOrdered By: Crissy Freire on 05-25-2023 pH (U) 6.0 [pH] 5.0 - 8.0 [facility] Urine sediment bacteria coun t by microscopy (number/high power field)Ordered By: Crissy Freire on 05-25-2023 Bacteria LM.HPF (Urine sed) [#/Area] 0 /[HPF] None Seen [facility] Urine specific gravity measu rementOrdered By: Crissy Freire on 05-25-2023 Specific gravity (U) [Rel density] 1.020 1.002-1.030 [facility] Urine urobilinogen measureme ntOrdered By: Crissy Freire on 05-25-2023 Urobilinogen Ql (U) Normal mg/dl Normal [facility] - Chemistry and C hemistry - challengeon 05-17-2023 Glucose Ql (U) Negative [facility] - Urinalysison Protein Ql (U) Negative [facility] Absolute lymphocyte countOrd ered By: Queta Kohli on 05-10-2023 Lymphocytes Auto (Unsp spec) [#/Vol] 1.81 10*3/uL 0.83-4.51 [facility] Automated lymphocyte count a s percentage of total leukocytesOrdered By: Queta Kohli on 05-10-2023 Lymphocytes/100 WBC Auto (Unsp spec) 17.9 % 19-41 [facility] Basophil percentageOrdered B y: Queta Kohli on 05-10-2023 Basophils/100 WBC (Bld) 0.2 % 0-1 [facility] Bilirubin [Mass/Vol] 0.30 mg/dL 0.20-1.00 [facility] Comment on above: For patients on eltr ombopag therapy, use of Dimension [place] TBIL is not recommended. Chloride [Moles/Vol] 110 mmol/L 98-107 [facility] Eosinophils/100 WBC (Bld) 0.8 % 0-5 [facility] Glucose [Mass/Vol] 109 mg/dL 74-106 [facility] Comment on above: Fasting Glucose resu lt from 100 to 125 mg/dL suggests IMPAIRED HOMEOSTASIS per A.D.A. criteria. Hemoglobin (Bld) [Mass/Vol] 12.2 g/dL 12.0-15.0 [facility] Monocytes/100 WBC (Bld) 4.6 % 0-10 [facility] Neutrophils (Bld) [#/Vol] 7.7 10*3/uL 2.0-7.7 [facility] Neutrophils/100 WBC (Bld) 76.1 % 47-70 [facility] Potassium [Moles/Vol] 3.6 mmol/L 3.5-5.1 [facility] Protein [Mass/Vol] 6.8 g/dL 6.4-8.2 [facility] Sodium [Moles/Vol] 137 mmol/L 136-145 [facility] WBC (Bld) [#/Vol] 10.1 10*3/uL 4.4-11.0 [facility] Determination of erythrocyte mean corpuscular volume (MCV)Ordered By: Queta Kohli on 05-10-2023 MCV (RBC) [Entitic vol] 80.8 fL 81-99 [facility] Erythrocyte distribution wid th ratioOrdered By: Queta Kohli on 05-10-2023 Erythrocyte distribution width (RBC) [Ratio] 13.1 % 11.6-14.6 [facility] Erythrocyte distribution wid th standard deviationOrdered By: Queta Kohli on 05-10-2023 Erythrocyte distribution width (RBC) [Entitic vol] 38.1 fL 35.1-43.9 [facility] Hematocrit Auto (Bld) [Volum e fraction]Ordered By: Queta Kohli on 05-10-2023 Hematocrit (Bld) [Volume fraction] 36.3 % 37-47 [facility] Immature granulocytes/100 WB C Auto (Bld)Ordered By: Queta Kohli on 05-10-2023 Immature granulocytes/100 WBC (Bld) 0.400 % 0.0-0.9 [facility] Comment on above: IG% - Immature Granu locytes (promyelocytes, myelocytes and metamyelocytes) > 1% indicates that a LEFT SHIFT is Present. Laboratory - Chemistry and C hemistry - challengeOrdered By: Queta Kohli on 05-10-2023 Albumin/Globulin [Mass ratio] 0.7 {ratio} 0.9-2.4 [facility] ALP [Catalytic activity/Vol] 89 U/L 45-117 [facility] ALT [Catalytic activity/Vol] 11 U/L 13-56 [facility] CO2 [Moles/Vol] 20.0 mmol/L 21.0-32.0 [facility] Globulin (S) [Mass/Vol] 4.1 g/dL 2.2-4.2 [facility] Urea nitrogen/Creatinine [Mass ratio] 13.0 mg/mg 10-20 [facility] - Hematology and Cell countsOrdered By: Queta Kohli on 05-10-2023 MCH (RBC) [Entitic mass] 27.2 pg 27.0-32.0 [facility] MCHC (RBC) [Mass/Vol] 33.6 g/dL 32-36 [facility] Nucleated RBC/100 WBC (Bld) [Ratio] 0 % 0-5 [facility] Platelet mean volume (Bld) [Entitic vol] 9.7 fL 6.2-12.0 [facility] Platelets (Bld) [#/Vol] 237 10*3/uL 150-450 [facility] No Panel InformationOrdered By: Queta Kohli on 05-10-2023 Estimated GFR (MDRD) Amer 145 mL/min >60 [facility] Comment on above: GFR Calc Estimated GFR (MDRD) Non-Af Amer 120 mL/min >60 [facility] Comment on above: Non- GFR Calc RBC Auto (Bld) [#/Vol]Ordere d By: Queta Kohli on 05-10-2023 RBC (Bld) [#/Vol] 4.49 10*6/uL 4.2-5.4 [facility] Serum or plasma calcium niraj urement (mass/volume)Ordered By: Queta Kohli on 05-10-2023 Calcium [Mass/Vol] 9.1 mg/dL 8.5-10.1 [facility] Serum or plasma creatinine m easurement (mass/volume)Ordered By: Queta Kohli on 05-10-2023 Creatinine [Mass/Vol] 0.62 mg/dL 0.55-1.02 [facility] Comment on above: The validity of the calculated GFR & GFRAA in patients over 70 years has not been determined. Clinical correlation is essential. Serum or plasma urea nitroge n measurement (mass/volume)Ordered By: Queta Kohli on 05-10-2023 Urea nitrogen [Mass/Vol] 8 mg/dL 7-18 [facility] Thin prep Papanicolaou smear with manual screeningOrdered By: Queta Kohli on 05-10-2023 Protein (U) [Mass/Vol] 29.4 mg/dL 0.0-11.8 [facility] Thin prep Papanicolaou smear with manual screening 2.7 g/dL 3.2-5.0 [facility] Thin prep Papanicolaou smear with manual screening 10 U/L 15-37 [facility] Thin prep Papanicolaou smear with manual screening 7 5-15 [facility] Urine creatinine measurement (mass/volume)Ordered By: Queta Kohli on 05-10-2023 Creatinine (U) [Mass/Vol] 122.00 mg/dL NO RANGE EST. [facility] Urine protein/creatinine mas s ratioOrdered By: Queta Kohli on 05-10-2023 Protein/Creatinine (U) [Mass ratio] 241 mg/g CRE 0-200 [facility] Absolute lymphocyte countOrd ered By: Elaina Castanon on 05-03-2023 Lymphocytes Auto (Unsp spec) [#/Vol] 1.60 10*3/uL 0.83-4.51 [facility] Automated lymphocyte count a s percentage of total leukocytesOrdered By: Elaina Castanon on 05-03-2023 Lymphocytes/100 WBC Auto (Unsp spec) 16.2 % 19-41 [facility] Basophil percentageOrdered B y: Elaina Castanon on 05-03-2023 Basophils/100 WBC (Bld) 0.2 % 0-1 [facility] Bilirubin [Mass/Vol] 0.20 mg/dL 0.20-1.00 [facility] Comment on above: For patients on eltr ombopag therapy, use of Dimension [place] TBIL is not recommended. Chloride [Moles/Vol] 107 mmol/L 98-107 [facility] Eosinophils/100 WBC (Bld) 1.5 % 0-5 [facility] Glucose [Mass/Vol] 128 mg/dL 74-106 [facility] Comment on above: Fasting Glucose resu lt greater than or equal to 126 mg/dL suggests DIABETES MELLITUS per A.D.A. criteria. Hemoglobin (Bld) [Mass/Vol] 12.2 g/dL 12.0-15.0 [facility] Monocytes/100 WBC (Bld) 6.6 % 0-10 [facility] Neutrophils (Bld) [#/Vol] 7.4 10*3/uL 2.0-7.7 [facility] Neutrophils/100 WBC (Bld) 75.2 % 47-70 [facility] Potassium [Moles/Vol] 3.7 mmol/L 3.5-5.1 [facility] Protein [Mass/Vol] 7.3 g/dL 6.4-8.2 [facility] Sodium [Moles/Vol] 138 mmol/L 136-145 [facility] WBC (Bld) [#/Vol] 9.9 10*3/uL 4.4-11.0 [facility] Determination of erythrocyte mean corpuscular volume (MCV)Ordered By: Elaina Castanon on 05-03-2023 MCV (RBC) [Entitic vol] 81.0 fL 81-99 [facility] Erythrocyte distribution wid th ratioOrdered By: Elaina Castanon on 05-03-2023 Erythrocyte distribution width (RBC) [Ratio] 13.0 % 11.6-14.6 [facility] Erythrocyte distribution wid th standard deviationOrdered By: Elaina Castanon on 05-03-2023 Erythrocyte distribution width (RBC) [Entitic vol] 37.5 fL 35.1-43.9 [facility] HIV 1 and HIV-2 antibody ass ay with HIV-1 p24 antigen detectionOrdered By: Elaina Castanon on 05-03-2023 HIV 1+2 Ab+HIV1 p24 Ag IA Ql Non-Reactive Nonreactive [facility] Hematocrit Auto (Bld) [Volum e fraction]Ordered By: Elaina Castanon on 05-03-2023 Hematocrit (Bld) [Volume fraction] 36.6 % 37-47 [facility] Immature granulocytes/100 WB C Auto (Bld)Ordered By: Elaina Castanon on 05-03-2023 Immature granulocytes/100 WBC (Bld) 0.300 % 0.0-0.9 [facility] Comment on above: IG% - Immature Granu locytes (promyelocytes, myelocytes and metamyelocytes) > 1% indicates that a LEFT SHIFT is Present. Laboratory - Chemistry and C hemistry - challengeOrdered By: Elaina Castanon on 05-03-2023 Albumin/Globulin [Mass ratio] 0.7 {ratio} 0.9-2.4 [facility] ALP [Catalytic activity/Vol] 101 U/L 45-117 [facility] ALT [Catalytic activity/Vol] 14 U/L 13-56 [facility] CO2 [Moles/Vol] 21.0 mmol/L 21.0-32.0 [facility] Globulin (S) [Mass/Vol] 4.4 g/dL 2.2-4.2 [facility] Urea nitrogen/Creatinine [Mass ratio] 11.2 mg/mg 10-20 [facility] Laboratory - Chemistry and C hemistry - challengeon 05-03-2023 Glucose Ql (U) Negative [facility] - Hematology and Cell countsOrdered By: Elaina Castanon on 05-03-2023 MCH (RBC) [Entitic mass] 27.0 pg 27.0-32.0 [facility] MCHC (RBC) [Mass/Vol] 33.3 g/dL 32-36 [facility] Nucleated RBC/100 WBC (Bld) [Ratio] 0 % 0-5 [facility] Platelet mean volume (Bld) [Entitic vol] 9.9 fL 6.2-12.0 [facility] Platelets (Bld) [#/Vol] 247 10*3/uL 150-450 [facility] Laboratory - Urinalysison Protein Ql (U) Negative [facility] No Panel InformationOrdered By: Elaina Castanon on 05-03-2023 Estimated GFR (MDRD) Amer 123 mL/min >60 [facility] Comment on above: GFR Calc Estimated GFR (MDRD) Non-Af Amer 101 mL/min >60 [facility] Comment on above: Non- GFR Calc RBC Auto (Bld) [#/Vol]Ordere d By: Elaina Castanon on 05-03-2023 RBC (Bld) [#/Vol] 4.52 10*6/uL 4.2-5.4 [facility] Serum Treponema species anti body detectionOrdered By: Elaina Castanon on 05-03-2023 Treponema sp Ab Ql (S) Non-Reactive [facility] Serum or plasma calcium niraj urement (mass/volume)Ordered By: Elaina Castanon on 05-03-2023 Calcium [Mass/Vol] 9.4 mg/dL 8.5-10.1 [facility] Serum or plasma creatinine m easurement (mass/volume)Ordered By: Elaina Castanon on 05-03-2023 Creatinine [Mass/Vol] 0.71 mg/dL 0.55-1.02 [facility] Comment on above: The validity of the calculated GFR & GFRAA in patients over 70 years has not been determined. Clinical correlation is essential. Serum or plasma urea nitroge n measurement (mass/volume)Ordered By: Elaina Castanon on 05-03-2023 Urea nitrogen [Mass/Vol] 8 mg/dL 7-18 [facility] Thin prep Papanicolaou smear with manual screeningOrdered By: Queta Kohli on 05-03-2023 Protein (U) [Mass/Vol] 12.5 mg/dL 0.0-11.8 [facility] Thin prep Papanicolaou smear with manual screeningOrdered By: Elaina Castanon on 05-03-2023 Thin prep Papanicolaou smear with manual screening 2.9 g/dL 3.2-5.0 [facility] Thin prep Papanicolaou smear with manual screening 13 U/L 15-37 [facility] Thin prep Papanicolaou smear with manual screening 10 5-15 [facility] Urine creatinine measurement (mass/volume)Ordered By: Queta Kohli on 05-03-2023 Creatinine (U) [Mass/Vol] 57.10 mg/dL NO RANGE EST. [facility] Urine protein/creatinine mas s ratioOrdered By: Queta oKhli on 05-03-2023 Protein/Creatinine (U) [Mass ratio] 219 mg/g CRE 0-200 [facility] Laboratory - Chemistry and C hemistry - challengeon 04-05-2023 Glucose Ql (U) Negative [facility] - Urinalysison Protein Ql (U) Negative [facility] - Chemistry and C hemistry - challengeon 03-06-2023 Glucose Ql (U) Negative [facility] - Urinalysison Protein Ql (U) Negative [facility] - Chemistry and C hemistry - challengeon 02-08-2023 Glucose Ql (U) Negative [facility] Laboratory - Urinalysison Protein Ql (U) Negative [facility] Absolute lymphocyte countOrd ered By: Queta Kohli on 01-11-2023 Lymphocytes Auto (Unsp spec) [#/Vol] 2.14 10*3/uL 0.83-4.51 [facility] Basophil percentageOrdered B y: Queta Kohli on 01-11-2023 Basophils/100 WBC (Bld) 0.2 % 0-1 [facility] Bilirubin [Mass/Vol] 0.30 mg/dL 0.20-1.00 [facility] Comment on above: For patients on eltr ombopag therapy, use of Dimension [place] TBIL is not recommended. Chloride [Moles/Vol] 108 mmol/L 98-107 [facility] Eosinophils/100 WBC (Bld) 0.5 % 0-5 [facility] Glucose [Mass/Vol] 120 mg/dL 74-106 [facility] Comment on above: Fasting Glucose resu lt from 100 to 125 mg/dL suggests IMPAIRED HOMEOSTASIS per A.D.A. criteria. Neutrophils (Bld) [#/Vol] 7.9 10*3/uL 2.0-7.7 [facility] Neutrophils/100 WBC (Bld) 73.2 % 47-70 [facility] Potassium [Moles/Vol] 3.4 mmol/L 3.5-5.1 [facility] Protein [Mass/Vol] 7.3 g/dL 6.4-8.2 [facility] Sodium [Moles/Vol] 138 mmol/L 136-145 [facility] WBC (Bld) [#/Vol] 10.8 10*3/uL 4.4-11.0 [facility] Blood erythrocytes count (nu mber/volume)Ordered By: Queta Kohli on 01-11-2023 RBC (Bld) [#/Vol] 4.89 10*6/uL 4.2-5.4 [facility] Blood hemoglobin measurement (mass/volume)Ordered By: Queta Kohli on 01-11-2023 Hemoglobin (Bld) [Mass/Vol] 13.7 g/dL 12.0-15.0 [facility] Blood lymphocytes/100 leukoc ytesOrdered By: Queta Kohli on 01-11-2023 Lymphocytes/100 WBC (Bld) 19.8 % 19-41 [facility] Blood monocytes/100 leukocyt esOrdered By: Queta Kohli on 01-11-2023 Monocytes/100 WBC (Bld) 5.9 % 0-10 [facility] Blood platelet mean volumeOr dered By: Queta Kohli on 01-11-2023 Platelet mean volume (Bld) [Entitic vol] 9.6 fL 6.2-12.0 [facility] Determination of erythrocyte mean corpuscular volume (MCV)Ordered By: Queta Kohli on 01-11-2023 MCV (RBC) [Entitic vol] 82.6 fL 81-99 [facility] HIV 1 and HIV-2 antibody ass ay with HIV-1 p24 antigen detectionOrdered By: Queta Kohli on 01-11-2023 HIV 1+2 Ab+HIV1 p24 Ag IA Ql Non-Reactive Nonreactive [facility] Hematocrit Auto (Bld) [Volum e fraction]Ordered By: Queta Kohli on 01-11-2023 Hematocrit (Bld) [Volume fraction] 40.4 % 37-47 [facility] - Chemistry and C hemistry - challengeon 01-11-2023 Glucose Ql (U) Negative [facility] - Chemistry and C hemistry - challengeOrdered By: Queta Kohli on 01-11-2023 ALP [Catalytic activity/Vol] 83 U/L 45-117 [facility] ALT [Catalytic activity/Vol] 18 U/L 13-56 [facility] CO2 [Moles/Vol] 22.0 mmol/L 21.0-32.0 [facility] Globulin (S) [Mass/Vol] 4.0 g/dL 2.2-4.2 [facility] Urea nitrogen/Creatinine [Mass ratio] 13.6 mg/mg 10-20 [facility] - Hematology and Cell countsOrdered By: Queta Kohli on 01-11-2023 Erythrocyte distribution width (RBC) [Entitic vol] 37.6 fL 35.1-43.9 [facility] Erythrocyte distribution width (RBC) [Ratio] 12.5 % 11.6-14.6 [facility] Immature granulocytes/100 WBC (Bld) 0.400 % 0.0-0.9 [facility] Comment on above: IG% - Immature Granu locytes (promyelocytes, myelocytes and metamyelocytes) > 1% indicates that a LEFT SHIFT is Present. MCH (RBC) [Entitic mass] 28.0 pg 27.0-32.0 [facility] Nucleated RBC/100 WBC (Bld) [Ratio] 0 % 0-5 [facility] Laboratory - Urinalysison Protein Ql (U) Negative [facility] MCHC Auto (RBC) [Mass/Vol]Or dered By: Queta Kohli on 01-11-2023 MCHC (RBC) [Mass/Vol] 33.9 g/dL 32-36 [facility] No Panel InformationOrdered By: Queta Kohli on 01-11-2023 Miscellaneous Test Comment MAILED SPECIMEN [facility] Estimated GFR (MDRD) Amer 134 mL/min >60 [facility] Comment on above: GFR Calc Estimated GFR (MDRD) Non-Af Amer 110 mL/min >60 [facility] Comment on above: Non- GFR Calc Hepatitis B Surface Antigen Non-Reactive Nonreactive [facility] Hepatitis C Antibody Non-Reactive Nonreactive [facility] Comment on above: Non Reactive: < 0.8 Equivocal: >/= 0.8 to < 1.0 Reactive: >/= 1.0The CDC recommends that a reactive/equivocal HCV antibody result be followed up by the HCV Nucleic Acid Amplificationtest (256747) Rubella IgG Antibody Reactive Nonreactive [facility] Comment on above: Antibody Results Int erpretation of Immune Status Non Reactive Presumed Non-Immune Equivocal Equivocal Reactive Presumed Immune Platelets bldOrdered By: Loulou Kohli on 01-11-2023 Platelets (Bld) [#/Vol] 235 10*3/uL 150-450 [facility] Serum Treponema species anti body detectionOrdered By: Queta Kohli on 01-11-2023 Treponema sp Ab Ql (S) Non-Reactive [facility] Serum or plasma albumin niraj urement (mass/volume)Ordered By: Queta Kohli on 01-11-2023 Albumin [Mass/Vol] 3.3 g/dL 3.2-5.0 [facility] Serum or plasma albumin/glob ulin mass ratioOrdered By: Queta Kohli on 01-11-2023 Albumin/Globulin [Mass ratio] 0.8 {ratio} 0.9-2.4 [facility] Serum or plasma calcium niraj urement (mass/volume)Ordered By: Queta Kohli on 01-11-2023 Calcium [Mass/Vol] 8.7 mg/dL 8.5-10.1 [facility] Serum or plasma creatinine m easurement (mass/volume)Ordered By: Queta Kohli on 01-11-2023 Creatinine [Mass/Vol] 0.66 mg/dL 0.55-1.02 [facility] Comment on above: The validity of the calculated GFR & GFRAA in patients over 70 years has not been determined. Clinical correlation is essential. Serum or plasma urea nitroge n measurement (mass/volume)Ordered By: Queta Kohli on 01-11-2023 Urea nitrogen [Mass/Vol] 9 mg/dL 7-18 [facility] Thin prep Papanicolaou smear with manual screeningOrdered By: Queta Kohli on 01-11-2023 Thin prep Papanicolaou smear with manual screening 13 U/L 15-37 [facility] Thin prep Papanicolaou smear with manual screening 8 5-15 [facility] Whole blood hemoglobin A1c/t otal hemoglobin ratio (mass fraction)Ordered By: Queta Kohli on 01-11-2023 HbA1c (Bld) [Mass fraction] 4.9 % 3.8-5.6 [facility] Comment on above: Normal < 5.7 % Predi abetic 5.7 - 6.4 % Diabetic >or= 6.5 % Please note range changes. Chlamydia trachomatis rRNA d etection by probe and target amplification methodOrdered By: Queta Kohli on 12-14-2022 C. trachomatis rRNA SHERICE+probe Ql (Unsp spec) Negative Negative [facility] Culture, urineOrdered By: Lucy Kohli on 12-14-2022 Bacteria identified Cx Nom (U) Culture exhibits no growth. [facility] Culture, urineOrdered By: Phuc Castanon on 12-14-2022 Bacteria identified Cx Nom (U) Culture exhibits no growth. [facility] - Microbiology an d Antimicrobial susceptibilityOrdered By: Queta Kohli on 12-14-2022 N. gonorrhoeae DNA SHERICE+probe Ql (Unsp spec) Negative Negative [facility] Comment on above: Performed at: = - [facility] [address] [place], [place] [id number] Director: Maine De Dios MD, Phone: [phone] Laboratory - Chemistry and C hemistry - challengeon 12-13-2022 Bilirubin Ql (U) Negative [facility] Glucose Ql (U) Negative [facility] Ketones Ql (U) Negative [facility] pH (U) 5.0 [pH] [facility] Specific gravity (U) [Rel density] 1.010 [facility] Urobilinogen (U) [Mass/Vol] 0.5827916 mg/dL [facility] - Hematology and Cell countson 12-13-2022 Hemoglobin Ql (U) Negative [facility] Laboratory - Specimen inform ationon 12-13-2022 Clarity (U) Clear [facility] Color (U) Yellow [facility] - Urinalysison Nitrite Ql (U) Negative [facility] Protein Ql (U) Negative [facility] No Panel Informationon 12-13 Urine Leukocytes Negatve [facility] Serum or plasma choriogonado tropin detectionOrdered By: Queta Kohli on 11-22-2022 HCG ( test) Ql 264 mIU/mL <4 [facility] Comment on above: hCG levels with Gest ational AgeGestational Age hCG mIU/mL (IU/L)0.2 - 1 week 5 - 501-2 weeks 50 - 5002-3 weeks 100 - 37307-0 weeks 500 - 539933-6 weeks 1000 - 801975-6 weeks 96567 - 100,0006-8 weeks 04564 - 200,0002-3 months 93674 - 100,000 Serum or plasma choriogonado tropin detectionOrdered By: Queta Kohli on 11-20-2022 HCG ( test) Ql 151 mIU/mL <4 [facility] Comment on above: hCG levels with Gest ational AgeGestational Age hCG mIU/mL (IU/L)0.2 - 1 week 5 - 501-2 weeks 50 - 5002-3 weeks 100 - 19840-9 weeks 500 - 783689-4 weeks 1000 - 154259-1 weeks 31154 - 100,0006-8 weeks 59653 - 200,0002-3 months 92039 - 100,000 HCG ( test) Ql (U)o n 11-16-2021 Interpretation and review of laboratory results Normal [facility] , Urineon 2 HCG ( test) Ql (U) Negative Negative [facility] UrinalysisOrdered By: Demi Ojeda on 11-16-2021 Bacteria Auto Ql (U) None Seen None Se en /hpf [facility] Bilirubin Ql (U) Negative Negative [facility] th Clarity Refractometry automated (U) Clear Clear [facility] Color (U) Yellow Colorless, Yellow [facility] Epithelial cells.squamous Auto (Urine sed) [#/Area] 2 [facility] Glucose Auto test strip (U) [Mass/Vol] Negative Negative mg/dL [facility] Hemoglobin Auto test strip Ql (U) Negative Negative [facility] Interpretation and review of laboratory results Abnormal [facility] Ketones (U) [Mass/Vol] Negative Negat marcel mg/dL [facility] Leukocyte esterase Auto test strip Ql (U) Trace Abnormal Negative [facility] Nitrite Auto test strip Ql (U) Negative Negative [facility] pH (U) 6.0 [pH] 5 - 7 [facility] Protein (U) [Mass/Vol] Negative Negat marcel mg/dL [facility] RBC Auto (Urine sed) [#/Area] [facility] Specific gravity (U) [Rel density] 1.015 1.005 - 1.025 [facility] Urobilinogen (U) [Mass/Vol] mg/dL NINF - 2.0 mg/dL [facility] WBC Auto (Urine sed) [#/Area] 1 [facility] Microscopic examination is performed on all urinalysis samples and only positive findings are reported. The test for blood on the chemical analytic portion of urinalysis may also be positive due to hemoglobinuria and myoglobinuria and if red blood cells are present they are quantified by microscopic examination. [facility] Comprehensive metabolic 2000 panelon 06-28-2021 Albumin [Mass/Vol] 4.2 g/dL 3.2 - 5.2 g/dL [facility] ALP [Catalytic activity/Vol] 86 U/L 40 - 140 U/L [facility] ALT [Catalytic activity/Vol] 29 U/L 14 - 65 U/L [facility] Anion gap [Moles/Vol] 10 mmol/L 10 - 2 0 mmol/L [facility] AST [Catalytic activity/Vol] 19 U/L 0 - 45 U/L [facility] Bilirubin [Mass/Vol] 0.5 mg/dL 0.0 - 1 .3 mg/dL [facility] Calcium [Mass/Vol] 9.6 mg/dL 8.4 - 10. 2 mg/dL [facility] Chloride [Moles/Vol] 108 mmol/L 98 - 10 8 mmol/L [facility] Creatinine [Mass/Vol] 0.79 mg/dL 0.40 - 1.10 [facility] GFR/1.73 sq M.predicted CKD-EPI (S/P/Bld) [Vol rate/Area] 101 >=60 mL/min/1.73 m2 [facility] Glucose [Mass/Vol] 93 mg/dL 65 - 99 mg/dL [facility] HCO3 [Moles/Vol] 22 mmol/L 21 - 32 mmol/L [facility] Potassium [Moles/Vol] 4.1 mmol/L 3.5 - 5.1 mmol/L [facility] Protein [Mass/Vol] 7.7 g/dL 6.0 - 8.0 g/dL [facility] Sodium [Moles/Vol] 136 mmol/L 135 - 145 mmol/L [facility] Urea nitrogen [Mass/Vol] 12 mg/dL 8 - 25 mg/d L [facility] Urea nitrogen/Creatinine [Mass ratio] 15.2 mg/mg [facility] The eGFR should be used for monitoring renal function only and not for medication dosing. [facility] HCG Qnon 06-28-2021 Beta HCG ( test) Ql (U) Males and non females: <5 mIU/mL Females during : 3-4 weeks 9-130 mIU/mL 4-5 weeks 75-2600 mIU/mL 5-6 weeks 850-20,800 mIU/mL 6-7 weeks 4000-100,200 mIU/mL 7-12 weeks 11,500-289,000 mIU/mL 12-16 weeks 18,300-137,000 mIU/mL 16-29 weeks 1,400-53,000 mIU/mL 29-41 weeks 940-60,000 mIU/mL [facility] HbA1c (Bld) [Mass fraction]o n 06-28-2021 Average glucose Estimated from glycated hemoglobin (Bld) [Mass/Vol] 103 mg/dL 68 - 114 mg/dL [facility] Interpretation and review of laboratory results Normal [facility] Normal: 4.0% - 5.6% Increased risk for diabetes: 5.7% - 6.4% Diabetes: >= 6.5% Pediatrics: No established reference range Estimated average glucose: 68-114 mg/dL [facility] Hemoglobin A1con 06-28-2021 HbA1c (Bld) [Mass fraction] 5.2 % 4.0 - 5.6 % [facility] Insulin Qnon 06-28-2021 Interpretation and review of laboratory results Normal [facility] Insulin, Totalon 06-28-2021 Insulin Qn 17.2 u[IU]/mL [facility] No Panel Informationon 06-28 Interpretation and review of laboratory results Normal [facility] T4, Freeon 06-28-2021 Free T4 [Mass/Vol] 1.1 ng/dL 0.7 - 1.7 ng/dL [facility] TSH DL <= 0.005 mIU/L Qnon 0 06-28-2021 TSH Qn 1.62 m[IU]/L [facility] hCG, Blood, Quantitativeon 0 06-28-2021 HCG Qn m[IU]/mL [facility] Glucose,Bedsideon 01-19-2020 Glucose [Mass/Vol] 92 mg/dL Normal 70-100 [facility] Comment on above: Result Comment: Test performed by glucose meter. Results may be 10%-15% lower than serum/plasma values. (CLIA ID [id number]) Performed By: #### B GLU #### [facility] [address] [place] [address] Glucose [Mass/Vol] 78 mg/dL Normal 70-100 [facility] Comment on above: Result Comment: Test performed by glucose meter. Results may be 10%-15% lower than serum/plasma values. (CLIA ID [id number]) Performed By: #### B GLU #### [facility] [address] [place] [address] Group B Strep Screen PCRon 1 03-20-2019 Group B Strep Screen PCR Group B Strep S creen PCR --> Status: F POSITIVE Expected Result: Negative CDC guidelines for prevention of Group B Strep disease recommends collection of both vaginal and rectal specimens for optimal recovery of GBS. Methodology - Real Time PCR (TextPower) Expected Result: Negative CDC guidelines for prevention of Group B Strep disease recommends collection of both vaginal and rectal specimens for optimal recovery of GBS. Methodology - Real Time PCR (CepInfoniqa Groupid) 1 Organism Streptococcus agalactiae (Group B) Isolated: Susceptibility testing not routinely performed. Group B streptococcus is universally susceptible to beta-lactam antibiotics and vancomycin. If patient is beta-lactam allergic, please call [facility] Microbiology lab ([phone]) within 2 days to request susceptibility testing. If isolated from urine, Group B strep may indicate colonization or infection. 1 Organism Antibiotic Result Intrp Ampicillin(ABDI) <= 0.25 S Inducible Clindamycin Resistant(ABDI)Neg Neg Ceftriaxone(ABDI) <= 0.12 S Clindamycin(ABDI) >= 1 R Vancomycin(ABDI) = 0.5 S Levofloxacin(ABDI) = 0.5 S Linezolid(ABDI) <= 2 S Tetracycline(ABDI) >= 16 R Erythromycin(ABDI) >= 8 R Penicillin-G(ABDI) = 0.12 S Normal [facility] Comment on above: Order Comment: Speci men Source Comment:Vaginal-Perirectal Performed By: #### B GLU #### [facility] [address] [place] [address] Group B Strep, PCRon 020 Group B Strep Screen PCR POSITIVE Expected Result: Negative CDC guidelines for prevention of Group B Strep disease recommends collection of both vaginal and rectal specimens for optimal recovery of GBS. Methodology - Real Time PCR (Cepheid) Abnormal [place], [place] Group B Strep Screen PCR Isolated: Susceptibility testing not routinely performed. Group B streptococcus is universally susceptible to beta-lactam antibiotics and vancomycin. If patient is beta-lactam allergic, please call [facility] Microbiology lab ([phone]) within 2 days to request susceptibility testing. If isolated from urine, Group B strep may indicate colonization or infection. [place] Group B Strep Screen PCR Group B streptococcus Abnormal [place] Interpretation and review of laboratory results Abnormal [place] Test Performed by [facility], [address] [place] [id number] Specimen Source Comment:Vaginal-Tania rectal [place], [place] POCT Glucoseon 01-19-2020 Glucose [Mass/Vol] 92 mg/dL 70 - 100 mg/dL [place] Comment on above: Test performed by gl ucose meter. Results may be 10%-15% lower than serum/plasma values. (CLIA ID [id number]) Test Performed by [address] Glucose [Mass/Vol] 78 mg/dL 70 - 100 mg/dL [place] Comment on above: Test performed by gl ucose meter. Results may be 10%-15% lower than serum/plasma values. (CLIA ID [id number]) Test Performed by [facility], [address] [place] [id number] [place] [address] Glucose,Bedsideon 01-18-2020 Glucose [Mass/Vol] 108 mg/dL High 70-100 [facility] Comment on above: Result Comment: Test performed by glucose meter. Results may be 10%-15% lower than serum/plasma values. (CLIA ID [id number]) Performed By: #### B GLU #### [place] [address] [place] [address] Glucose [Mass/Vol] 108 mg/dL High 70-100 [facility] Comment on above: Result Comment: Test performed by glucose meter. Results may be 10%-15% lower than serum/plasma values. (CLIA ID [id number]) Performed By: #### H MAKEDA, CMP3 #### [place] [address] [address] [place], [place] Glucose [Mass/Vol] 89 mg/dL Normal 70-100 [facility] Comment on above: Result Comment: Test performed by glucose meter. Results may be 10%-15% lower than serum/plasma values. (CLIA ID [id number]) Performed By: #### B GLU #### [place] [address] [address] [place], [place] Hemoglobinon 01-18-2020 Hemoglobin (Bld) [Mass/Vol] 10.4 g/dL Low 11.7-16.0 [place] Comment on above: repeated Result Comment: repe ated Performed By: #### H MAKEDA, CMP3 #### [place] [address] [place], [place] Interpretation and review of laboratory results Abnormal [email or web address] [place] [place] Test Performed by [employer], [facility] [place] [address] [place], [place] POCT Glucoseon 01-18-2020 Glucose [Mass/Vol] 108 mg/dL High 70 - 100 mg/dL [place] Comment on above: Test performed by gl ucose meter. Results may be 10%-15% lower than serum/plasma values. (CLIA ID [id number]) Interpretation and review of laboratory results Abnormal [facility] [place] Test Performed by [employer], [facility] [place] [place], [place] [id number] [place] [address] Glucose [Mass/Vol] 108 mg/dL High 70 - 100 mg/dL [place] Comment on above: Test performed by gl ucose meter. Results may be 10%-15% lower than serum/plasma values. (CLIA ID [id number]) Interpretation and review of laboratory results Abnormal [email or web address] [place] Test Performed by [employer], [facility] [address] [place], [place] [id number] [place] [address] Glucose [Mass/Vol] 89 mg/dL 70 - 100 mg/dL [place] Comment on above: Test performed by gl ucose meter. Results may be 10%-15% lower than serum/plasma values. (CLIA ID [id number]) Test Performed by [facility], [address] [place] [address] [place], [place] CBCon 01-17-2020 Erythrocyte distribution width (RBC) [Ratio] 14.0 % 11.5 - 14.5 % [place] Hematocrit (Bld) [Volume fraction] 39.1 % 35 - 47 % [place] Hemoglobin (Bld) [Mass/Vol] 13.0 g/dL 11.7 - 16 g/dL [place] Interpretation and review of laboratory results Abnormal [place] MCH (RBC) [Entitic mass] 27.0 pg 26 - 34 pg [place] MCHC (RBC) [Mass/Vol] 33.2 % 32 - 36 % [place] MCV (RBC) [Entitic vol] 81.2 fL 79 - 98 fL [place], [place] Platelet mean volume (Bld) [Entitic vol] 9.7 fL 7.4 - 10.4 fL [place] Platelets (Bld) [#/Vol] 291 10*3/uL 140 - 440 10*3/uL [place] RBC (Bld) [#/Vol] 4.81 10*6/uL 3.8 - 5.2 10*6/uL [place] WBC (Bld) [#/Vol] 14.4 10*3/uL High 3.6 - 10.7 10*3/uL [place] Test Performed by [facility], [address] [place] [address] [place], [place] Comp Metabolic Panelon 01-16 ALP [Catalytic activity/Vol] 181 U/L High 38-126 [facility] Comment on above: Performed By: #### B GLU #### [facility] [address] [address] ALT [Catalytic activity/Vol] 10 U/L Normal 0-34 [facility] Comment on above: Result Comment: The ALT test is performed by an updated assay method. Please note that the reference intervals have been changed and are now sex specific. Performed By: #### B GLU #### [facility] [address] [place], [place] AST [Catalytic activity/Vol] 21 U/L Normal 15-46 [facility] Comment on above: Performed By: #### B GLU #### [facility] [address] [place], [place] Calcium [Mass/Vol] 8.9 mg/dL Normal 8.4-10.4 [facility] Comment on above: Performed By: #### B GLU #### [place] [address] [address] [place], [place] Glucose [Mass/Vol] 107 mg/dL High 70-100 [facility] Comment on above: Performed By: #### B GLU #### [place] [address] [address] [place], [place] Protein [Mass/Vol] 6.6 g/dL Normal 6.3-8.2 [facility] Comment on above: Performed By: #### B GLU #### [place] [address] [address] [place], [place] Urea nitrogen [Mass/Vol] 17 mg/dL Normal 7-20 [facility] Comment on above: Performed By: #### B GLU #### [place] [address] [address] [place], [place] Anion gap [Moles/Vol] 10 Normal [facility] Comment on above: Performed By: #### B GLU #### [place] [address] [address] [place], [place] Bilirubin [Mass/Vol] 0.4 mg/dL Normal 0.2-1.3 [facility] Comment on above: Performed By: #### B GLU #### [place] [address] [address] [place], [place] CO2 [Moles/Vol] 17 mmol/L Low 22-30 [facility] Comment on above: Performed By: #### B GLU #### [place] [address] [address] [place], [place] Creatinine [Mass/Vol] 0.68 mg/dL Normal 0.52-1.25 [facility] Comment on above: Performed By: #### B GLU #### [facility] [address] [place], [place] GFR/1.73 sq M predicted among blacks MDRD (S/P/Bld) [Vol rate/Area] mL/min/{1.73_m2} Normal >60 [facility] Comment on above: Performed By: #### B GLU #### [facility] [address] [place], [place] GFR/1.73 sq M predicted among non-blacks MDRD (S/P/Bld) [Vol rate/Area] mL/min/{1.73_m2} Normal >60 [facility] Comment on above: Result Comment: KDIG [...] secretion. Performed By: #### B GLU #### [facility] [address] [place], [place] Potassium [Moles/Vol] 4.3 mmol/L Normal 3.5-5.1 [facility] Comment on above: Performed By: #### B GLU #### [facility] [address] [place], [place] Sodium [Moles/Vol] 137 mmol/L Normal 135-145 [facility] [facility] Comment on above: Performed By: #### B GLU #### [facility] [address] [place], [place] Albumin [Mass/Vol] 3.4 g/dL Low 3.5-5.0 [facility] Comment on above: Performed By: #### B GLU #### [facility] [address] [place], [place] Chloride [Moles/Vol] 110 mmol/L High 98-107 [facility] Comment on above: Performed By: #### B GLU #### [facility] [address] [place], [place] Comprehensive Metabolic Pane alpesh 01-17-2020 Albumin [Mass/Vol] 3.4 g/dL Low 3.5 - 5 g/dL [place], [place] ALP [Catalytic activity/Vol] 181 U/L High 38 - 126 U/L [place], [place] ALT [Catalytic activity/Vol] 10 U/L 0 - 34 U/L [place] Comment on above: The ALT test is perf ormed by an updated assay method. Please note that the reference intervals have been changed and are now sex specific. Anion gap [Moles/Vol] 10 mmol/L [place], [place] AST [Catalytic activity/Vol] 21 U/L 15 - 46 U/L [place] Bilirubin Ql (U) 0.4 mg/dL 0.2 - 1.3 mg/dL [place] Calcium [Mass/Vol] 8.9 mg/dL 8.4 - 10. 4 mg/dL [place] Chloride [Moles/Vol] 110 mmol/L High 98 - 10 7 mmol/L [place] CO2 [Moles/Vol] 17 mmol/L Low 22 - 30 mmol/L [place] Creatinine [Mass/Vol] 0.68 mg/dL 0.52 - 1.25 mg/dL [place] EGFR IF NonAfrican Moroccan >90.0 >60 mL/min [place] Comment on above: KDIGO guidelines pro [...] MDRD (S/P/Bld) [Vol rate/Area] mL/min/{1.73_m2} >60 mL/min [place] Glucose [Mass/Vol] 107 mg/dL High 70 - 100 mg/dL [place] Interpretation and review of laboratory results Abnormal [place] Potassium [Moles/Vol] 4.3 mmol/L 3.5 - 5.1 mmol/L [place] Protein [Mass/Vol] 6.6 g/dL 6.3 - 8.2 g/dL [place] Sodium [Moles/Vol] 137 mmol/L 135 - 145 mmol/L [place] Urea nitrogen [Mass/Vol] 17 mg/dL 7 - 20 mg/d L [place] Test Performed by [facility], [address] [place] [address] Hemogramon 01-17-2020 Erythrocyte distribution width (RBC) [Ratio] 14.0 % Normal 11.5-14.5 [facility] Comment on above: Performed By: #### B GLU #### [address] [address] Hematocrit (Bld) [Volume fraction] 39.1 % Normal 35.0-47.0 [facility] Comment on above: Performed By: #### B GLU #### [address] [address] Hemoglobin (Bld) [Mass/Vol] 13.0 g/dL Normal 11.7-16.0 [facility] Comment on above: Performed By: #### B GLU #### [facility] [address] [place], [place] MCH (RBC) [Entitic mass] 27.0 pg Normal 26.0-34.0 [facility] Comment on above: Performed By: #### B GLU #### [facility] [address] [place], [place] MCHC (RBC) [Mass/Vol] 33.2 % Normal 32.0-36.0 [facility] Comment on above: Performed By: #### B GLU #### [place] [address] [address] [place], [place] MCV (RBC) [Entitic vol] 81.2 fL Normal 79.0-98.0 [facility] Comment on above: Performed By: #### B GLU #### [place] [address] [address] [place], [place] Platelet mean volume (Bld) [Entitic vol] 9.7 fL Normal 7.4-10.4 [facility] Comment on above: Performed By: #### B GLU #### [place] [address] [address] [place], [place] Platelets (Bld) [#/Vol] 291 10*3/uL Normal 140-440 [facility] Comment on above: Performed By: #### B GLU #### [place] [address] [address] [place], [place] RBC (Bld) [#/Vol] 4.81 10*6/uL Normal 3.80-5.20 [facility] Comment on above: Performed By: #### B GLU #### [place] [address] [address] [place], [place] WBC (Bld) [#/Vol] 14.4 10*3/uL High 3.6-10.7 [facility] Comment on above: Performed By: #### B GLU #### [place] [address] [address] [place], [place] TS GELon 01-17-2020 TS GEL ABO Group: A Rh, Gel: POS Antibody Screen Gel: NEG Normal [facility] Comment on above: Performed By: #### T SGL #### [place] [address] [place] [address] [facility] TYPE AND SCREENon 01-17-2020 Sodium [Moles/Vol] Positive [facility] Sodium [Moles/Vol] Negative [facility] Sodium [Moles/Vol] A [facility] [place] Test Performed by [facility], [address] [place] [address] [facility], [place] Glucose,Bedsideon 01-16-2020 Glucose [Mass/Vol] 134 mg/dL High 70-100 [facility] Comment on above: Result Comment: Test performed by glucose meter. Results may be 10%-15% lower than serum/plasma values. (CLIA ID [id number]) Performed By: #### H MAKEDA, CMP3 #### [facility] [address] [place] [address] Glucose [Mass/Vol] 104 mg/dL High 70-100 [facility] Comment on above: Result Comment: Test performed by glucose meter. Results may be 10%-15% lower than serum/plasma values. (CLIA ID [id number]) Performed By: #### B GLU #### [place] [address] [place] [address] Glucose [Mass/Vol] 94 mg/dL Normal 70-100 [facility] Comment on above: Result Comment: Test performed by glucose meter. Results may be 10%-15% lower than serum/plasma values. (CLIA ID [id number]) Performed By: #### B GLU #### [facility] [address] [place] [address] Glucose [Mass/Vol] 84 mg/dL Normal 70-100 [facility] Comment on above: Result Comment: Test performed by glucose meter. Results may be 10%-15% lower than serum/plasma values. (CLIA ID [id number]) Performed By: #### H EMDF, CMP3 #### [facility] [address] [place] [address] POCT Glucoseon 01-16-2020 Glucose [Mass/Vol] 134 mg/dL High 70 - 100 mg/dL [place], [place] Comment on above: Test performed by gl ucose meter. Results may be 10%-15% lower than serum/plasma values. (CLIA ID [id number]) Interpretation and review of laboratory results Abnormal [place] Test Performed by [facility], [place] [address] [place], [place] Glucose [Mass/Vol] 104 mg/dL High 70 - 100 mg/dL [place] Comment on above: Test performed by gl ucose meter. Results may be 10%-15% lower than serum/plasma values. (CLIA ID [id number]) Interpretation and review of laboratory results Abnormal [place] Test Performed by [facility], [facility] [address] [place], [place] [id number] [place] [address] Glucose [Mass/Vol] 94 mg/dL 70 - 100 mg/dL [place] Comment on above: Test performed by gl ucose meter. Results may be 10%-15% lower than serum/plasma values. (CLIA ID [id number]) Test Performed by [facility], [facility] [address] [place], [place] [id number] [place] [address] Glucose [Mass/Vol] 84 mg/dL 70 - 100 mg/dL [place], [place] Comment on above: Test performed by gl ucose meter. Results may be 10%-15% lower than serum/plasma values. (CLIA ID [id number]) Test Performed by [facility], [facility] [address] [place], [place] [address] [place] [address] CBC WITH AUTO DIFFERENTIALon 01-15-2020 Absolute Baso # 0.0 10*3/uL 0 - 0.2 10*3/uL [place] Absolute Neut # 11.7 10*3/uL High 1.8 - 7 10*3/uL [place] Interpretation and review of laboratory results Abnormal [place] Test Performed by [facility], [address] [place] [address] [place] CULTURE URINEon 01-15-2020 CULTURE URINE CULTURE URINE --> Status: F Normal urogenital toy present. Normal [facility] Comment on above: Order Comment: Speci men Source Comment:Urine, clean catch Performed By: #### B GLU #### [facility] [address] [place], [place] Comp Metabolic Panelon 01-14 ALP [Catalytic activity/Vol] 167 U/L High 38-126 [facility] Comment on above: Performed By: #### H OZ ASHFORD3 #### [facility] [address] [place], [place] ALT [Catalytic activity/Vol] 10 U/L Normal 0-34 [facility] Comment on above: Result Comment: The ALT test is performed by an updated assay method. Please note that the reference intervals have been changed and are now sex specific. Performed By: #### H OZ ASHFORD3 #### [place] [address] [address] [place], [place] Anion gap [Moles/Vol] 8 Normal [facility] Comment on above: Performed By: #### H OZ ASHFORD3 #### [place] [address] [address] [place], [place] AST [Catalytic activity/Vol] 22 U/L Normal 15-46 [facility] Comment on above: Performed By: #### H OZ ASHFORD3 #### [place] [address] [address] [place], [place] Bilirubin [Mass/Vol] 0.4 mg/dL Normal 0.2-1.3 [facility] Comment on above: Performed By: #### H OZ ASHFORD3 #### [place] [address] [address] [place], [place] Calcium [Mass/Vol] 8.6 mg/dL Normal 8.4-10.4 [facility] Comment on above: Performed By: #### H OZ ASHFORD3 #### [place] [address] [address] [place], [place] CO2 [Moles/Vol] 18 mmol/L Low 22-30 [facility] Comment on above: Performed By: #### H OZ ASHFORD3 #### [place] [address] [address] [place], [place] Creatinine [Mass/Vol] 0.58 mg/dL Normal 0.52-1.25 [facility] Comment on above: Performed By: #### H OZ ASHFORD3 #### [facility] [address] [place], [place] GFR/1.73 sq M predicted among blacks MDRD (S/P/Bld) [Vol rate/Area] mL/min/{1.73_m2} Normal >60 [facility] Comment on above: Performed By: #### H OZ ASHFORD3 #### [facility] [address] [place], [place] GFR/1.73 sq M predicted among non-blacks MDRD (S/P/Bld) [Vol rate/Area] mL/min/{1.73_m2} Normal >60 [facility] Comment on above: Result Comment: KDIG [...] Performed By: #### H OZ ASHFORD3 #### [facility] [address] [place], [place] Glucose [Mass/Vol] 90 mg/dL Normal 70-100 [facility] Comment on above: Performed By: #### H OZ ASHFORD3 #### [facility] [address] [place], [place] Protein [Mass/Vol] 6.1 g/dL Low 6.3-8.2 [facility] Comment on above: Performed By: #### H MAKEDA CMP3 #### [facility] [address] [place] [address] Urea nitrogen [Mass/Vol] 9 mg/dL Normal 7-20 [facility] Comment on above: Performed By: #### H MAKEDA CMP3 #### [facility] [address] [place] [address] Albumin [Mass/Vol] 3.0 g/dL Low 3.5-5.0 [facility] Comment on above: Performed By: #### H MAKEDA CMP3 #### [facility] [address] [place] [address] Chloride [Moles/Vol] 110 mmol/L High 98-107 [facility] Comment on above: Performed By: #### H MAKEDA CMP3 #### [facility] [address] [place] [address] Potassium [Moles/Vol] 3.8 mmol/L Normal 3.5-5.1 [facility] Comment on above: Performed By: #### H MAKEDA CMP3 #### [facility] [address] [place] [address] Sodium [Moles/Vol] 137 mmol/L Normal 135-145 [facility] Comment on above: Performed By: #### H MAKEDA CMP3 #### [facility] [address] [place] [address] Comprehensive Metabolic Pane alpesh 01-15-2020 Albumin [Mass/Vol] 3.0 g/dL Low 3.5 - 5 g/dL [place] ALP [Catalytic activity/Vol] 167 U/L High 38 - 126 U/L [place] ALT [Catalytic activity/Vol] 10 U/L 0 - 34 U/L [place] Comment on above: The ALT test is perf ormed by an updated assay method. Please note that the reference intervals have been changed and are now sex specific. Anion gap [Moles/Vol] 8 mmol/L [place] AST [Catalytic activity/Vol] 22 U/L 15 - 46 U/L [place] Bilirubin Ql (U) 0.4 mg/dL 0.2 - 1.3 mg/dL [place] Calcium [Mass/Vol] 8.6 mg/dL 8.4 - 10. 4 mg/dL [place] Chloride [Moles/Vol] 110 mmol/L High 98 - 10 7 mmol/L [place] CO2 [Moles/Vol] 18 mmol/L Low 22 - 30 mmol/L [place] Creatinine [Mass/Vol] 0.58 mg/dL 0.52 - 1.25 mg/dL [place] EGFR IF NonAfrican Moroccan >90.0 >60 mL/min [place] Comment on above: KDIGO guidelines pro [...] MDRD (S/P/Bld) [Vol rate/Area] mL/min/{1.73_m2} >60 mL/min [place] Glucose [Mass/Vol] 90 mg/dL 70 - 100 mg/dL [place] Interpretation and review of laboratory results Abnormal [place] Potassium [Moles/Vol] 3.8 mmol/L 3.5 - 5.1 mmol/L [place] Protein [Mass/Vol] 6.1 g/dL Low 6.3 - 8.2 g/dL [place] Sodium [Moles/Vol] 137 mmol/L 135 - 145 mmol/L [place] Urea nitrogen [Mass/Vol] 9 mg/dL 7 - 20 mg/d L [place] Test Performed by [facility], [facility] [place] [address] [place], [place] Culture, Urineon 01-15-2020 Bacteria identified Cx Nom (U) Normal urogenital toy present. [place] Test Performed by [facility], [facility] [place] [address] Specimen Source Comment:Urine, clean catch [place], [place] Glucose,Bedsideon 01-15-2020 Glucose [Mass/Vol] 106 mg/dL High 70-100 [facility] Comment on above: Result Comment: Test performed by glucose meter. Results may be 10%-15% lower than serum/plasma values. (CLIA ID [id number]) Performed By: #### H EMDF, CMP3 #### [place] [address] [place] [address] Glucose [Mass/Vol] 66 mg/dL Low 70-100 [facility] Comment on above: Result Comment: Test performed by glucose meter. Results may be 10%-15% lower than serum/plasma values. (CLIA ID [id number]) Performed By: #### B GLU #### [place] [address] [place] [address] Glucose [Mass/Vol] 79 mg/dL Normal 70-100 [facility] Comment on above: Result Comment: Test performed by glucose meter. Results may be 10%-15% lower than serum/plasma values. (CLIA ID [id number]) Performed By: #### B GLU #### [facility] [address] [place] [address] Glucose [Mass/Vol] 109 mg/dL High 70-100 [facility] Comment on above: Result Comment: Test performed by glucose meter. Results may be 10%-15% lower than serum/plasma values. (CLIA ID [id number]) Performed By: #### B GLU #### [facility] [address] [place] [address] Hemogram w/ Autodiffon 11-06 -2020 Abs Baso Cnt 0.0 10*3/uL Normal 0.0-0.2 [facility] Comment on above: Performed By: #### H MAKEDA CMP3 #### [place] [address] [place] [address] Abs Neutrophile Cnt 11.7 10*3/uL High 1.8-7.0 [facility] Comment on above: Performed By: #### H MAKEDA CMP3 #### [place] [address] [place] [address] Basophils/100 WBC (Bld) 0.3 % Normal 0.0-2.0 [place] Comment on above: Performed By: #### H MAKEDA CMP3 #### [place] [address] [address] [place] Eosinophils (Bld) [#/Vol] 0.0 10*3/uL Normal 0.0-0.5 [place] Comment on above: Performed By: #### H MAKEDA CMP3 #### [place] [address] [address] [place] Eosinophils/100 WBC (Bld) 0.1 % Low 1.0-6.0 [place] Comment on above: Performed By: #### H MAKEDA CMP3 #### [address] Erythrocyte distribution width (RBC) [Ratio] 13.8 % Normal 11.5-14.5 [place] Comment on above: Performed By: #### H EMDSteff CMP3 #### [place] [address] [place] [address] Granulocytes/100 WBC (Bld) 81.1 % High 40.0-80.0 [place] Comment on above: Performed By: #### H EMDSteff CMP3 #### [address] [address] Hematocrit (Bld) [Volume fraction] 36.2 % Normal 35.0-47.0 [place] Comment on above: Performed By: #### H EMDSteff CMP3 #### [place] [address] [address] [place] Hemoglobin (Bld) [Mass/Vol] 11.9 g/dL Normal 11.7-16.0 [place] Comment on above: Performed By: #### H EMDSteff CMP3 #### [place] [address] [address] [place] Lymphocytes (Bld) [#/Vol] 1.9 10*3/uL Normal 1.0-4.3 [place] Comment on above: Performed By: #### H EMDSteff CMP3 #### [place] [address] [place] Lymphocytes/100 WBC (Bld) 12.8 % Low 20.0-40.0 [place] Comment on above: Performed By: #### H MAKEDA CMP3 #### [address] MCH (RBC) [Entitic mass] 26.7 pg Normal 26.0-34.0 [place] Comment on above: Performed By: #### H MAKEDA CMP3 #### [address] MCHC (RBC) [Mass/Vol] 32.8 % Normal 32.0-36.0 [place] Comment on above: Performed By: #### H EMDSteff CMP3 #### [address] MCV (RBC) [Entitic vol] 81.2 fL Normal 79.0-98.0 [place] Comment on above: Performed By: #### H EMDSteff CMP3 #### [address] Monocytes (Bld) [#/Vol] 0.8 10*3/uL Normal 0.0-0.8 [place] Comment on above: Performed By: #### H EMDSteff CMP3 #### [place] [address] [place] [address] Monocytes/100 WBC (Bld) 5.7 % Normal 2.0-10.0 [place] Comment on above: Performed By: #### H EMDF, CMP3 #### [place] [address] [place] [address] Platelet mean volume (Bld) [Entitic vol] 10.0 fL Normal 7.4-10.4 [place] Comment on above: Performed By: #### H EMDF, CMP3 #### [place] [address] [place] [address] Platelets (Bld) [#/Vol] 211 10*3/uL Normal 140-440 [place] Comment on above: Performed By: #### H EMDF, CMP3 #### [place] [address] [place] [address] RBC (Bld) [#/Vol] 4.46 10*6/uL Normal 3.80-5.20 [place] Comment on above: Performed By: #### H EMDF, CMP3 #### [place] [address] [address] [place] WBC (Bld) [#/Vol] 14.4 10*3/uL High 3.6-10.7 [place] Comment on above: Performed By: #### H EMDF, CMP3 #### [place] [address] [address] [place] [facility] US Limitedon 1 03-16-2019 [facility] US Limited Patient Name: NNACY MCDONALD Maternal Medicine Exam Date/Time 01/15/2020 14:25:56 EST Exam [facility] US Limited Ordering Physician DO PALMER ALESSANDRA Accession Number [id number] Reason For Exam Cleft lip, Preeclampsia Report OBSTETRICS REPORT (Signed Final 01/15/2020 03:11 pm) Patient Info ID #: [id number] : [birth year] (29 yrs) Name: NANCY MATOS Visit Date: 01/15/2020 01:57 pm Performed By Performed By: Constanza Kennedy Referred By: EZE PALMER Attending: Bishop Molina MD Service(s) Provided [place] [id number] Indications Preeclampsia Obesity IUGR Cleft lip Evaluation [...] 01/15/2020 3:12 pm Signed by: BISHOP JONES [facility] POCT Glucoseon 01-15-2020 Glucose [Mass/Vol] 106 mg/dL High 70 - 100 mg/dL [facility] [place], [place] Comment on above: Test performed by gl ucose meter. Results may be 10%-15% lower than serum/plasma values. (CLIA ID [id number]) Interpretation and review of laboratory results Abnormal [place] Test Performed by [employer] [facility], [place] [address] [place], [place] Glucose [Mass/Vol] 66 mg/dL Low 70 - 100 mg/dL [place] Comment on above: Test performed by gl ucose meter. Results may be 10%-15% lower than serum/plasma values. (CLIA ID [id number]) Interpretation and review of laboratory results Abnormal [facility] [employer] [place], [place] Test Performed by [employer], [place] [address] [place] Glucose [Mass/Vol] 79 mg/dL 70 - 100 mg/dL [place] Comment on above: Test performed by gl ucose meter. Results may be 10%-15% lower than serum/plasma values. (CLIA ID [id number]) Test Performed by [employer], [facility] [place], [place] [address] [place] [address] LIMITED 01-14 [facility] Incoming Radiology Results From [facility] - 01/15/2020 3:12 PM EST Patient Name: NANCY MATOS ---Maternal Medicine--- Exam Date/Time 01/15/2020 14:25:56 EST Exam [facility] US Limited Ordering Physician DO PALMER ALESSANDRA Accession Number [id number] Reason For Exam Cleft lip, Preeclampsia Report OBSTETRICS REPORT (Signed Final 01/15/2020 03:11 pm) Patient Info ID #: [id number] : [birth year] (29 yrs) Name: NANCY MATOS Visit Date: 01/15/2020 01:57 pm Performed By Performed By: Constanza Kennedy Referred By: EZE PALMER Attending: Bishop Molina MD Service(s) [place] [id number] Indications Preeclampsia Obesity IUGR Cleft lip Evaluation [...] 01/15/2020 3:12 pm Signed by: BISHOP JONES [place] Patient Name: NANCY MATOS ---Maternal Medicine--- Exam Date/Time 01/15/2020 14:25:56 EST Exam [facility] [place] Limited Ordering Physician DO PALMER ALESSANDRA Accession Number [id number] Reason For Exam Cleft lip, Preeclampsia Report OBSTETRICS REPORT (Signed Final 01/15/2020 03:11 pm) Patient Info ID #: [id number] : [birth year] (29 yrs) Name: NANCY MATOS Visit Date: 01/15/2020 01:57 pm Performed By Performed By: Constanza Kennedy Referred By: EZE PALMER Attending: Bishop Molina MD Service(s) [place] [id number] Indications Preeclampsia Obesity IUGR Cleft lip Evaluation [...] 01/15/2020 3:12 pm Signed by: BISHOP JONES [place], [place] CBCon 01-14-2020 Erythrocyte distribution width (RBC) [Ratio] 13.6 % 11.5 - 14.5 % [place] Hematocrit (Bld) [Volume fraction] 39.2 % 35 - 47 % [place] Hemoglobin (Bld) [Mass/Vol] 12.9 g/dL 11.7 - 16 g/dL [place] Interpretation and review of laboratory results Abnormal [place] MCH (RBC) [Entitic mass] 26.7 pg 26 - 34 pg [place] MCHC (RBC) [Mass/Vol] 33.0 % 32 - 36 % [place] MCV (RBC) [Entitic vol] 80.9 fL 79 - 98 fL [place], [place] Platelet mean volume (Bld) [Entitic vol] 9.6 fL 7.4 - 10.4 fL [place] Platelets (Bld) [#/Vol] 214 10*3/uL 140 - 440 10*3/uL [place] RBC (Bld) [#/Vol] 4.84 10*6/uL 3.8 - 5.2 10*6/uL [place] WBC (Bld) [#/Vol] 19.8 10*3/uL High 3.6 - 10.7 10*3/uL [place] Test Performed by [facility], [address] [place] [address] [place] COMPREHENSIVE METABOLIC PANE Alpesh 01-14-2020 Albumin [Mass/Vol] 3.5 g/dL 3.5 - 5 g/dL [place] ALP [Catalytic activity/Vol] 185 U/L High 38 - 126 U/L [place] ALT [Catalytic activity/Vol] 11 U/L 0 - 34 U/L [place] Comment on above: The ALT test is perf ormed by an updated assay method. Please note that the reference intervals have been changed and are now sex specific. Anion gap [Moles/Vol] 9 mmol/L [place] AST [Catalytic activity/Vol] 26 U/L 15 - 46 U/L [place] Bilirubin Ql (U) 0.4 mg/dL 0.2 - 1.3 mg/dL [place] Calcium [Mass/Vol] 8.7 mg/dL 8.4 - 10. 4 mg/dL [place] Chloride [Moles/Vol] 109 mmol/L High 98 - 10 7 mmol/L [place] CO2 [Moles/Vol] 18 mmol/L Low 22 - 30 mmol/L [place] Creatinine [Mass/Vol] 0.64 mg/dL 0.52 - 1.25 mg/dL [place] EGFR IF NonAfrican Moroccan >90.0 >60 mL/min [place] Comment on above: KDIGO guidelines pro [...] MDRD (S/P/Bld) [Vol rate/Area] mL/min/{1.73_m2} >60 mL/min [place] Glucose [Mass/Vol] 75 mg/dL 70 - 100 mg/dL [place] Interpretation and review of laboratory results Abnormal [place] Potassium [Moles/Vol] 4.3 mmol/L 3.5 - 5.1 mmol/L [place] Protein [Mass/Vol] 6.7 g/dL 6.3 - 8.2 g/dL [place] Sodium [Moles/Vol] 136 mmol/L 135 - 145 mmol/L [place] Urea nitrogen [Mass/Vol] 11 mg/dL 7 - 20 mg/d L [place] Test Performed by [facility], [address] [place] [address] Comp Metabolic Panelon 01-13 Calcium [Mass/Vol] 8.7 mg/dL Normal 8.4-10.4 [facility] Comment on above: Performed By: #### H MAKEDA [facility] #### [address] ALP [Catalytic activity/Vol] 185 U/L High 38-126 [facility] Comment on above: Performed By: #### H OZ ASHFORD3 #### [facility] [address] [place], [place] ALT [Catalytic activity/Vol] 11 U/L Normal 0-34 [facility] Comment on above: Result Comment: The ALT test is performed by an updated assay method. Please note that the reference intervals have been changed and are now sex specific. Performed By: #### H OZ ASHFORD3 #### [place] [address] [address] [place], [place] Anion gap [Moles/Vol] 9 Normal [facility] Comment on above: Performed By: #### H OZ ASHFORD3 #### [place] [address] [address] [place] AST [Catalytic activity/Vol] 26 U/L Normal 15-46 [facility] Comment on above: Performed By: #### H OZ ASHFORD3 #### [place] [address] [place], [place] Bilirubin [Mass/Vol] 0.4 mg/dL Normal 0.2-1.3 [facility] Comment on above: Performed By: #### H OZ ASHFORD3 #### [place] [address] [address] [place], [place] CO2 [Moles/Vol] 18 mmol/L Low 22-30 [facility] Comment on above: Performed By: #### H OZ ASHFORD3 #### [place] [address] [address] [place], [place] Glucose [Mass/Vol] 75 mg/dL Normal 70-100 [facility] Comment on above: Performed By: #### H OZ ASHFORD3 #### [place] [address] [address] [place], [place] Protein [Mass/Vol] 6.7 g/dL Normal 6.3-8.2 [facility] Comment on above: Performed By: #### Damian ASHFORD CMP3 #### [place] [address] [address] [place], [place] Urea nitrogen [Mass/Vol] 11 mg/dL Normal 7-20 [facility] Comment on above: Performed By: #### H OZ ASHFORD3 #### [facility] [address] [place], [place] Creatinine [Mass/Vol] 0.64 mg/dL Normal 0.52-1.25 [facility] Comment on above: Performed By: #### H OZ ASHFORD3 #### [facility] [address] [place], [place] GFR/1.73 sq M predicted among blacks MDRD (S/P/Bld) [Vol rate/Area] mL/min/{1.73_m2} Normal >60 [facility] Comment on above: Performed By: #### H OZ ASHFORD3 #### [facility] [address] [place], [place] GFR/1.73 sq M predicted among non-blacks MDRD (S/P/Bld) [Vol rate/Area] mL/min/{1.73_m2} Normal >60 [facility] Comment on above: Result Comment: KDIG [...] Performed By: #### H OZ ASHFORD3 #### [facility] [address] [place], [place] Potassium [Moles/Vol] 4.3 mmol/L Normal 3.5-5.1 [facility] Comment on above: Performed By: #### H MAKEDA CMP3 #### [facility] [address] [place] [address] Albumin [Mass/Vol] 3.5 g/dL Normal 3.5-5.0 [facility] Comment on above: Performed By: #### H MAKEDA CMP3 #### [facility] [address] [place] [address] Chloride [Moles/Vol] 109 mmol/L High 98-107 [facility] Comment on above: Performed By: #### H MAKEDA CMP3 #### [facility] [address] [place] [address] Sodium [Moles/Vol] 136 mmol/L Normal 135-145 [facility] Comment on above: Performed By: #### H MAKEDA CMP3 #### [facility] [address] [place] [address] Creatinine, Random Urineon 1 03-15-2019 Creatinine (U) [Mass/Vol] 54.0 mg/dL No Range [facility], [place] Test Performed by [facility], [address] [place] [address] [facility], [place] Creatinine, Ur Randomon Creatinine, Ur Random 54.0 mg/dL Normal No Range [facility] Comment on above: Performed By: #### H MAKEDA CMP3 #### [facility] [address] [place] [address] Hemogramon 01-14-2020 Erythrocyte distribution width (RBC) [Ratio] 13.6 % Normal 11.5-14.5 [facility] Comment on above: Performed By: #### H MAKEDA CMP3 #### [facility] [address] [place] [address] Hematocrit (Bld) [Volume fraction] 39.2 % Normal 35.0-47.0 [facility] Comment on above: Performed By: #### H MAKEDA CMP3 #### [facility] [address] [place] [address] Hemoglobin (Bld) [Mass/Vol] 12.9 g/dL Normal 11.7-16.0 [facility] Comment on above: Performed By: #### H EMDSteff CMP3 #### [place] [address] [address] [place], [place] MCH (RBC) [Entitic mass] 26.7 pg Normal 26.0-34.0 [facility] Comment on above: Performed By: #### H EMDF CMP3 #### [place] [address] [address] [place] MCHC (RBC) [Mass/Vol] 33.0 % Normal 32.0-36.0 [facility] Comment on above: Performed By: #### H EMDSteff CMP3 #### [address] MCV (RBC) [Entitic vol] 80.9 fL Normal 79.0-98.0 [facility] Comment on above: Performed By: #### H EMDSteff CMP3 #### [address] Platelet mean volume (Bld) [Entitic vol] 9.6 fL Normal 7.4-10.4 [facility] Comment on above: Performed By: #### H EMDSteff CMP3 #### [address] Platelets (Bld) [#/Vol] 214 10*3/uL Normal 140-440 [facility] Comment on above: Performed By: #### H EMDF CMP3 #### [place] [address] [place] RBC (Bld) [#/Vol] 4.84 10*6/uL Normal 3.80-5.20 [facility] Comment on above: Performed By: #### H EMDF CMP3 #### [address] WBC (Bld) [#/Vol] 19.8 10*3/uL High 3.6-10.7 [facility] Comment on above: Performed By: #### H EMDF CMP3 #### [place] [address] [place] [address] POCT Glucoseon 01-14-2020 Glucose [Mass/Vol] 109 mg/dL High 70 - 100 mg/dL [place], [place] Comment on above: Test performed by ucose meter. Results may be 10%-15% lower than serum/plasma values. (CLIA ID [id number]) Interpretation and review of laboratory results Abnormal [place], [place] Test Performed by [facility], [address] [place] [address] PROTEIN, URINEon 01-14-2020 Interpretation and review of laboratory results Abnormal [place], [place] Protein (U) [Mass/Vol] 300 mg/dL Abnormal Negative Me [place], [place] Comment on above: . Test Performed by [facility], [address] [place] [address] TS GELon 01-14-2020 TS GEL ABO Group: A Rh, Gel: POS Antibody Screen Gel: NEG Normal [facility] Comment on above: Performed By: #### T SGL #### [address] TYPE AND SCREENon 01-14-2020 Sodium [Moles/Vol] Negative [place], [place] Sodium [Moles/Vol] Positive [place] Sodium [Moles/Vol] A [place], [place] Test Performed by [facility], [address] [place] [address] Total Protein,Urineon 2019 Protein (U) [Mass/Vol] 300 mg/dL Abnormal Negative [facility] Comment on above: Result Comment: . Performed By: #### B GLU #### [address] [address] POC Rapid Strep Aon 01-08-20 18 S. pyogenes Ag IA Ql (Unsp spec) Negative Normal Negative [facility] Comment on above: Order Comment: [id number] Negative arudy Y Result Comment: No d etectable Group A Streptococcus antigen present. Throat culture report to follow. Performed By: #### P OCSTREPA #### [facility] [address] [place] [address] [place] [address] Urgent Care Noteson 01-08-20 Urgent Care Notes [address] [address] Urgent Care Visit Notes Signed PRELIMINARY DRAFT REPORT UNTIL ELECTRONICALLY SIGNED PATIENT: Nancy Matos MR#: [id number] : 1990 AGE/SEX: 27 / F ADMITTED: 01/07/18 OUTSIDE [facility]N: [facility]: cc: PCP NO; Disposition Clinical Impression: Upper respiratory infection Qualifiers: URI type: unspecified URI Qualified Code(s): J06.9 - Acute upper respiratory infection, unspecified Disposition: Home, Self-Care Condition: Good Instructions: Upper Respiratory Infection, Revenue St[employer] (GEN) Additional Instructions: If your symptoms do [...] Medications Medication Instructions Recorded Confirmed Singulair 01/07/18 Zbv-Ta-Pmdneh Tablet 01/07/18 Zyrtec 01/07/18 metFORMIN 01/07/18 Previous [...] - Level Charges New Patient Charge Levels: [id number] E M Level 2 Course Vital Signs [...] By: 01/07/18 0921 DD/ 0850 Initialized By: [id number] [facility] POC Bacterial Vaginosison Bacterial Vaginosis Negative Invalid Interpretation Code Negative [facility] Interpretation and review of laboratory results Normal Invalid Interpretation Code [facility] POC Rapid Trichomonason 09-08 Internal Control Pass Invalid Interpretation Code [facility] Interpretation and review of laboratory results Normal Invalid Interpretation Code [facility] Rapid Trichomonas Negative Invalid Interpretation Code Negative [facility] POC Urinalysis Dipstick,Auto UCon 09-17-2017 Bilirubin Ql (U) Negative Invalid Interpretation Code Negative [facility] Clarity, UA Clear Invalid Interpretation Code Clear [facility] Color Auto Nom (U) Light Yellow Invalid Interpretation Code Yellow, Light Yellow, Dark Yellow [facility] Interpretation and review of laboratory results Abnormal Invalid Interpretation Code [facility] Urine, glucose presence Negative Invalid Interpretation Code Normal, Negative mg/dL [facility] Urine, hemoglobin presence Negative Invalid Interpretation Code Negative [facility] Urine, ketones presence Negative Invalid Interpretation Code Negative mg/dL [facility] Urine, leukocyte esterase presence Small Abnormal Negative [facility] Urine, nitrite presence Negative Invalid Interpretation Code Negative [facility] Urine, pH 7.0 [pH] Invalid Interpretation Code 5.0 - 7.0 [facility] Urine, protein presence Negative Invalid Interpretation Code Negative mg/dL [facility] Urine, specific gravity 1.010 1 Invalid Interpretation Code 1.005 - 1.025 [facility] Urine, urobilinogen 0.2 mg/dL Invalid Interpretation Code <2.0, 0.2, Normal, Negative, 1.0, 2.0, <1.0 [facility] Vital Signs Date Time Vital Sign Value Performing Clinician Facility 12-11-2024 07:59-0400 Body height 162.56 cm Sidney Jackson NP-C Work Phone: [facility] 12-11-2024 07:55-0400 Body mass index (BMI) [Ratio] 45.1 kg/m2 Sidney Jackson NP-C Work Phone: [facility] 12-11-2024 07:55-0400 Body weight 119.32 kg Sidney Jackson NP-C Work Phone: [facility] 12-11-2024 07:55-0400 Diastolic blood pressure 72 mm[Hg] Sidney Jackson NP-C Work Phone: [facility] 12-11-2024 07:55-0400 Systolic blood pressure 106 mm[Hg] Sidney Jackson NP-C Work Phone: [facility] 09-10-2024 09:06-0400 Body height 162.[address] Marivel Danielson MD Work Phone: [facility] 09-10-2024 09:06-0400 Body mass index (BMI) [Ratio] 45.8 kg/m2 Dr. Marivel Danielson MD Work Phone: [facility] 09-10-2024 09:06-0400 Body temperature 97.2 [degF] Dr. Marivel Danielson MD Work Phone: [facility] 09-10-2024 09:06-0400 Body weight 121.[address] Marivel Danielson MD Work Phone: [facility] 09-10-2024 09:06-0400 Diastolic blood pressure 70 mm[Hg] Dr. Marivel Danielson MD Work Phone: [facility] 09-10-2024 09:06-0400 Heart rate 87 /min Dr. Marivel Danielson MD Work Phone: [facility] 09-10-2024 09:06-0400 Respiratory rate 18 /min Dr. Marivel Danielson MD Work Phone: [facility] 09-10-2024 09:06-0400 SaO2% (BldA) [Mass fraction] 98 % Dr. Marivel Danielson MD Work Phone: [facility] 09-10-2024 09:06-0400 Systolic blood pressure 110 mm[Hg] Dr. Marivel Danielson MD Work Phone: [facility] 09-02-2024 08:30-0400 Body height 162.[address] Marivel Danielson MD Work Phone: [facility] 09-02-2024 08:30-0400 Body mass index (BMI) [Ratio] 45.7 kg/m2 Dr. Marivel Danielson MD Work Phone: [facility] 09-02-2024 08:30-0400 Body weight 120.[address] Marivel Danielson MD Work Phone: [facility] 09-02-2024 08:30-0400 Diastolic blood pressure 76 mm[Hg] Dr. Marivel Danielson MD Work Phone: [facility] 09-02-2024 08:30-0400 Systolic blood pressure 109 mm[Hg] Dr. Marivel Danielson MD Work Phone: [facility] 08-07-2024 14:09-0400 Body height 162.56 cm Sidney Keymeggano SEM MANAGER-C Work Phone: [facility] 08-07-2024 14:07-0400 Body mass index (BMI) [Ratio] 45.1 kg/m2 Sidney Keymeggano SEM MANAGER-C Work Phone: [facility] 08-07-2024 14:07-0400 Body weight 119.4 kg Sidney Keyullo SEM MANAGER-C Work Phone: [facility] 08-07-2024 14:07-0400 Diastolic blood pressure 85 mm[Hg] Sidneyedison Keymeggano SEM MANAGER-C Work Phone: [facility] 08-07-2024 14:07-0400 Systolic blood pressure 123 mm[Hg] Sidneyedison Keyullo SEM MANAGER-C Work Phone: [facility] 07-22-2024 14:11-0400 Body temperature 98 [degF] Sidneyedison Keyullo SEM MANAGER-C Work Phone: [facility] 07-22-2024 14:11-0400 Diastolic blood pressure 78 mm[Hg] Sidneyedison Keyullo SEM MANAGER-C Work Phone: [facility] 07-22-2024 14:11-0400 Heart rate 81 /min Sidney Keyullo SEM MANAGER-C Work Phone: [facility] 07-22-2024 14:11-0400 Respiratory rate 18 /min Sidneyedison Keyullo SEM MANAGER-C Work Phone: [facility] 07-22-2024 14:11-0400 SaO2% (BldA) [Mass fraction] 99 % Sidneyedison Keyullo SEM MANAGER-C Work Phone: [facility] 07-22-2024 14:11-0400 Systolic blood pressure 131 mm[Hg] Sidney Shahidullo SEM MANAGER-C Work Phone: [facility] 07-22-2024 09:37-0400 Body height 162.56 cm Sidney Saunderso SEM MANAGER-C Work Phone: [facility] 07-22-2024 09:37-0400 Body mass index (BMI) [Ratio] 44.6 kg/m2 Sidney Saunderso SEM MANAGER-C Work Phone: [facility] 07-22-2024 09:37-0400 Body weight 118.02 kg Sidney Saunderso SEM MANAGER-C Work Phone: [facility] 06-02-2024 16:31-0400 Body temperature 97.8 [degF] Sidney Saunderso SEM MANAGER-C Work Phone: [facility] 06-02-2024 16:31-0400 Diastolic blood pressure 70 mm[Hg] Sidney Saunderso SEM MANAGER-C Work Phone: [facility] 06-02-2024 16:31-0400 Heart rate 86 /min Sidney Saunderso SEM MANAGER-C Work Phone: [facility] 06-02-2024 16:31-0400 Respiratory rate 16 /min Sidney Saunderso SEM MANAGER-C Work Phone: [facility] 06-02-2024 16:31-0400 SaO2% (BldA) [Mass fraction] 96 % Sidney Saunderso SEM MANAGER-C Work Phone: [facility] 06-02-2024 16:31-0400 Systolic blood pressure 112 mm[Hg] Sidney Saunderso SEM MANAGER-C Work Phone: [facility] 04-10-2024 10:42-0500 Body mass index (BMI) [Ratio] 42.2 kg/m2 Sidneyedison Keyullo SEM MANAGER-C Work Phone: [facility] 04-10-2024 10:42-0500 Body temperature 96.2 [degF] Sidneyedison Saunderso SEM MANAGER-C Work Phone: [facility] 04-10-2024 10:42-0500 Body weight 111.64 kg Sidneyedison Saunderso SEM MANAGER-C Work Phone: [facility] 04-10-2024 10:42-0500 Diastolic blood pressure 78 mm[Hg] Sidney Saunderslela SEM MANAGER-C Work Phone: [facility] 04-10-2024 10:42-0500 Heart rate 71 /min Sidney Jackosn SEM MANAGER-C Work Phone: [facility] 04-10-2024 10:42-0500 Respiratory rate 16 /min Sidney Jackson SEM MANAGER-C Work Phone: [facility] 04-10-2024 10:42-0500 SaO2% (BldA) [Mass fraction] 98 % Sidney Jackson SEM MANAGER-C Work Phone: [facility] 04-10-2024 10:42-0500 Systolic blood pressure 120 mm[Hg] Sidney Saunderso SEM MANAGER-C Work Phone: [facility] 07-20-2023 08:07-0400 Body temperature 98.3 [degF] No Primary Care Physician [facility] 07-20-2023 08:07-0400 Diastolic blood pressure 64 mm[Hg] No Primary Care Physician [facility] 07-20-2023 08:07-0400 Heart rate 86 /min No Primary Care Physician [facility] 07-20-2023 08:07-0400 Respiratory rate 16 /min No Primary Care Physician [facility] 07-20-2023 08:07-0400 SaO2% (BldA) [Mass fraction] 98 % No Primary Care Physician [facility] 07-20-2023 08:07-0400 Systolic blood pressure 116 mm[Hg] No Primary Care Physician [facility] 07-18-2023 09:49-0400 Body height 162.56 cm No Primary Care Physician [facility] 07-18-2023 09:49-0400 Body mass index (BMI) [Ratio] 41.7 kg/m2 No Primary Care Physician [facility] 07-18-2023 09:49-0400 Body weight 110.22 kg No Primary Care Physician [facility] 07-12-2023 14:59-0400 Body mass index (BMI) [Ratio] 41 kg/m2 No Primary Care Physician [facility] 07-12-2023 14:59-0400 Body weight 108.4 kg No Primary Care Physician [facility] 07-12-2023 14:59-0400 Diastolic blood pressure 84 mm[Hg] No Primary Care Physician [facility] 07-12-2023 14:59-0400 Systolic blood pressure 127 mm[Hg] No Primary Care Physician [facility] 07-04-2023 14:03-0400 Body height 162.56 cm No Primary Care Physician [facility] 07-04-2023 14:03-0400 Body mass index (BMI) [Ratio] 41.2 kg/m2 No Primary Care Physician [facility] 07-04-2023 14:03-0400 Body weight 108.97 kg No Primary Care Physician [facility] 07-04-2023 14:03-0400 Diastolic blood pressure 82 mm[Hg] No Primary Care Physician [facility] 07-04-2023 14:03-0400 Systolic blood pressure 120 mm[Hg] No Primary Care Physician [facility] 06-28-2023 13:47-0400 Body mass index (BMI) [Ratio] 40.3 kg/m2 No Primary Care Physician [facility] 06-28-2023 13:47-0400 Body weight 106.59 kg No Primary Care Physician [facility] 06-28-2023 13:47-0400 Diastolic blood pressure 83 mm[Hg] No Primary Care Physician [facility] 06-28-2023 13:47-0400 Systolic blood pressure 121 mm[Hg] No Primary Care Physician [facility] 06-21-2023 13:36-0400 Body height 162.56 cm No Primary Care Physician [facility] 06-21-2023 13:34-0400 Body mass index (BMI) [Ratio] 38.2 kg/m2 No Primary Care Physician [facility] 06-21-2023 13:34-0400 Body weight 101.15 kg No Primary Care Physician [facility] 06-21-2023 13:34-0400 Diastolic blood pressure 77 mm[Hg] No Primary Care Physician [facility] 06-21-2023 13:34-0400 Systolic blood pressure 111 mm[Hg] No Primary Care Physician [facility] 06-18-2023 19:45-0400 Diastolic blood pressure 73 mm[Hg] No Primary Care Physician [facility] 06-18-2023 19:45-0400 Heart rate 100 /min No Primary Care Physician [facility] 06-18-2023 19:45-0400 Systolic blood pressure 121 mm[Hg] No Primary Care Physician [facility] 06-18-2023 19:41-0400 Body height 162.56 cm No Primary Care Physician [facility] 06-18-2023 19:41-0400 Body mass index (BMI) [Ratio] 40.8 kg/m2 No Primary Care Physician [facility] 06-18-2023 19:41-0400 Body weight 108.1 kg No Primary Care Physician [facility] 06-18-2023 17:50-0400 SaO2% (BldA) [Mass fraction] 98 % No Primary Care Physician [facility] 06-18-2023 17:45-0400 Body temperature 99.3 [degF] No Primary Care Physician [facility] 06-18-2023 17:45-0400 Respiratory rate 22 /min No Primary Care Physician [facility] 06-14-2023 13:25-0400 Body mass index (BMI) [Ratio] 42.3 kg/m2 No Primary Care Physician [facility] 06-14-2023 13:25-0400 Body weight 108.4 kg No Primary Care Physician [facility] 06-14-2023 13:25-0400 Diastolic blood pressure 69 mm[Hg] No Primary Care Physician [facility] 06-14-2023 13:25-0400 Systolic blood pressure 101 mm[Hg] No Primary Care Physician [facility] 06-07-2023 13:20-0400 Body height 160.02 cm No Primary Care Physician [facility] 06-07-2023 13:19-0400 Body mass index (BMI) [Ratio] 41.8 kg/m2 No Primary Care Physician [facility] 06-07-2023 13:19-0400 Body weight 107.27 kg No Primary Care Physician [facility] 06-07-2023 13:19-0400 Diastolic blood pressure 70 mm[Hg] No Primary Care Physician [facility] 06-07-2023 13:19-0400 Systolic blood pressure 111 mm[Hg] No Primary Care Physician [facility] 05-31-2023 15:29-0400 Body mass index (BMI) [Ratio] 42.1 kg/m2 No Primary Care Physician [facility] 05-31-2023 15:29-0400 Body weight 107.95 kg No Primary Care Physician [facility] 05-31-2023 15:29-0400 Diastolic blood pressure 69 mm[Hg] No Primary Care Physician [facility] 05-31-2023 15:29-0400 Systolic blood pressure 115 mm[Hg] No Primary Care Physician [facility] 05-25-2023 18:45-0400 Body height 160.02 cm No Primary Care Physician [facility] 05-25-2023 18:45-0400 Body mass index (BMI) [Ratio] 42.3 kg/m2 No Primary Care Physician [facility] 05-25-2023 18:45-0400 Body weight 108.2 kg No Primary Care Physician [facility] 05-25-2023 18:24-0400 Diastolic blood pressure 64 mm[Hg] No Primary Care Physician [facility] 05-25-2023 18:24-0400 Heart rate 93 /min No Primary Care Physician [facility] 05-25-2023 18:24-0400 Systolic blood pressure 119 mm[Hg] No Primary Care Physician [facility] 05-25-2023 18:23-0400 Body temperature 98.3 [degF] No Primary Care Physician [facility] 05-25-2023 18:23-0400 Respiratory rate 14 /min No Primary Care Physician [facility] 05-25-2023 18:23-0400 SaO2% (BldA) [Mass fraction] 98 % No Primary Care Physician [facility] 05-17-2023 14:50-0500 Body mass index (BMI) [Ratio] 41.1 kg/m2 No Primary Care Physician [facility] 05-17-2023 14:50-0500 Body weight 108.86 kg No Primary Care Physician [facility] 05-17-2023 14:50-0500 Diastolic blood pressure 72 mm[Hg] No Primary Care Physician [facility] 05-17-2023 14:50-0500 Systolic blood pressure 115 mm[Hg] No Primary Care Physician [facility] 05-03-2023 13:56-0500 Body weight 108.4 kg No Primary Care Physician [facility] 05-03-2023 13:56-0500 Diastolic blood pressure 86 mm[Hg] No Primary Care Physician [facility] 05-03-2023 13:56-0500 Systolic blood pressure 134 mm[Hg] No Primary Care Physician [facility] 05-03-2023 13:39-0500 Body height 162.56 cm No Primary Care Physician [facility] 04-05-2023 14:11-0500 Body mass index (BMI) [Ratio] 41.8 kg/m2 No Primary Care Physician [facility] 04-05-2023 14:11-0500 Body weight 110.67 kg No Primary Care Physician [facility] 04-05-2023 14:11-0500 Diastolic blood pressure 78 mm[Hg] No Primary Care Physician [facility] 04-05-2023 14:11-0500 Systolic blood pressure 120 mm[Hg] No Primary Care Physician [facility] 03-07-2023 16:17-0500 Body mass index (BMI) [Ratio] 41.3 kg/m2 No Primary Care Physician [facility] 03-07-2023 16:17-0500 Body temperature 99.3 [degF] No Primary Care Physician [facility] 03-07-2023 16:17-0500 Body weight 109.31 kg No Primary Care Physician [facility] 03-07-2023 16:17-0500 Diastolic blood pressure 79 mm[Hg] No Primary Care Physician [facility] 03-07-2023 16:17-0500 Heart rate 96 /min No Primary Care Physician [facility] 03-07-2023 16:17-0500 Respiratory rate 15 /min No Primary Care Physician [facility] 03-07-2023 16:17-0500 SaO2% (BldA) [Mass fraction] 97 % No Primary Care Physician [facility] 03-07-2023 16:17-0500 Systolic blood pressure 118 mm[Hg] No Primary Care Physician [facility] 03-06-2023 11:48-0500 Body mass index (BMI) [Ratio] 41.5 kg/m2 No Primary Care Physician [facility] 03-06-2023 11:48-0500 Body weight 109.93 kg No Primary Care Physician [facility] 03-06-2023 11:48-0500 Diastolic blood pressure 77 mm[Hg] No Primary Care Physician [facility] 03-06-2023 11:48-0500 Heart rate 93 /min No Primary Care Physician [facility] 03-06-2023 11:48-0500 Systolic blood pressure 114 mm[Hg] No Primary Care Physician [facility] 02-08-2023 15:54-0500 Body mass index (BMI) [Ratio] 42.4 kg/m2 No Primary Care Physician [facility] 02-08-2023 15:54-0500 Body weight 112.03 kg No Primary Care Physician [facility] 02-08-2023 15:54-0500 Diastolic blood pressure 85 mm[Hg] No Primary Care Physician [facility] 02-08-2023 15:54-0500 Systolic blood pressure 122 mm[Hg] No Primary Care Physician [facility] 01-11-2023 15:22-0400 Body height 162.[address] Valeria Aguilera Work Phone: [facility] 01-11-2023 15:22-0400 Body mass index (BMI) [Ratio] 42.4 kg/m2 Dr. Valeria Aguilera Work Phone: [facility] 01-11-2023 15:22-0400 Body weight 112.[address] Valeria Aguilera Work Phone: [facility] 01-11-2023 15:22-0400 Diastolic blood pressure 83 mm[Hg] Dr. Valeria Aguilera Work Phone: [facility] 01-11-2023 15:22-0400 Systolic blood pressure 123 mm[Hg] Dr. Valeria Aguilera Work Phone: [facility] 12-14-2022 13:16-0400 Body mass index (BMI) [Ratio] 41.5 kg/m2 Dr. Valeria Aguilera Work Phone: [facility] 12-14-2022 13:16-0400 Body weight 109.[address] Valeria Aguilera Work Phone: [facility] 12-14-2022 13:16-0400 Diastolic blood pressure 95 mm[Hg] Dr. Valeria Aguilera Work Phone: [facility] 12-14-2022 13:16-0400 Systolic blood pressure 136 mm[Hg] Dr. Valeria Aguilera Work Phone: [facility] 12-13-2022 09:57-0400 Body mass index (BMI) [Ratio] 41.1 kg/m2 Dr. Valeria Aguilera Work Phone: [facility] 12-13-2022 09:57-0400 Body weight 108.[address] Valeria Aguilera Work Phone: [facility] 04-16-2022 10:04-0500 Body height 161.3 cm Juani Lisha CLASSROOM INSTRUCTIONAL AIDE Work Phone: [facility] 04-16-2022 10:04-0500 Body mass index (BMI) [Ratio] 40.8 kg/m2 Juani Lisha CLASSROOM INSTRUCTIONAL AIDE Work Phone: [facility] 04-16-2022 10:04-0500 Body weight 106.14 kg Juani Lisha CLASSROOM INSTRUCTIONAL AIDE Work Phone: [facility] 04-16-2022 10:04-0500 Diastolic blood pressure 76 mm[Hg] Juani Lisha CLASSROOM INSTRUCTIONAL AIDE Work Phone: [facility] 04-16-2022 10:04-0500 Heart rate 83 /min Juani Lisha CLASSROOM INSTRUCTIONAL AIDE Work Phone: [facility] 04-16-2022 10:04-0500 SaO2% (BldA) [Mass fraction] 97 % Juani Lisha CLASSROOM INSTRUCTIONAL AIDE Work Phone: [facility] 04-16-2022 10:04-0500 Systolic blood pressure 117 mm[Hg] Juani Lisha CLASSROOM INSTRUCTIONAL AIDE Work Phone: [facility] 11-16-2021 09:14-0400 Body height 161.3 cm Juani Lisha CLASSROOM INSTRUCTIONAL AIDE Work Phone: [facility] 11-16-2021 09:14-0400 Body mass index (BMI) [Ratio] 41.85 kg/m2 Juani Lisha CLASSROOM INSTRUCTIONAL AIDE Work Phone: [facility] 11-16-2021 09:14-0400 Body weight 108.86 kg Juani Lisha CLASSROOM INSTRUCTIONAL AIDE Work Phone: [facility] 11-16-2021 09:14-0400 Diastolic blood pressure 84 mm[Hg] Juani Lisha CLASSROOM INSTRUCTIONAL AIDE Work Phone: [facility] 11-16-2021 09:14-0400 Heart rate 88 /min Juani Lisha CLASSROOM INSTRUCTIONAL AIDE Work Phone: [facility] 11-16-2021 09:14-0400 SaO2% (BldA) [Mass fraction] 98 % Juani Lisha CLASSROOM INSTRUCTIONAL AIDE Work Phone: [facility] 11-16-2021 09:14-0400 Systolic blood pressure 127 mm[Hg] Juani Lisha CLASSROOM INSTRUCTIONAL AIDE Work Phone: [facility] 09-10-2021 13:27-0400 Body mass index (BMI) [Ratio] 43.07 kg/m2 Paridhi Ja CLASSROOM INSTRUCTIONAL AIDE Work Phone: [facility] 09-10-2021 13:27-0400 Body temperature 98.49 [degF] Paridhi Ja CLASSROOM INSTRUCTIONAL AIDE Work Phone: [facility] 09-10-2021 13:27-0400 Body weight 112.04 kg Paridhi Ja CLASSROOM INSTRUCTIONAL AIDE Work Phone: [facility] 09-10-2021 13:27-0400 Diastolic blood pressure 83 mm[Hg] Paridhi Ja CLASSROOM INSTRUCTIONAL AIDE Work Phone: [facility] 09-10-2021 13:27-0400 Heart rate 94 /min Paridhi Ja CLASSROOM INSTRUCTIONAL AIDE Work Phone: [facility] 09-10-2021 13:27-0400 Respiratory rate 16 /min Paridhi Ja CLASSROOM INSTRUCTIONAL AIDE Work Phone: [facility] 09-10-2021 13:27-0400 SaO2% (BldA) [Mass fraction] 97 % Henrry Barahona CLASSROOM INSTRUCTIONAL AIDE Work Phone: [facility] 09-10-2021 13:27-0400 Systolic blood pressure 132 mm[Hg] Henrry Barahona CLASSROOM INSTRUCTIONAL AIDE Work Phone: [facility] 08-25-2021 09:30-0400 Body height 161.3 cm Juani Lisha CLASSROOM INSTRUCTIONAL AIDE Work Phone: [facility] 08-25-2021 09:30-0400 Body mass index (BMI) [Ratio] 41.67 kg/m2 Juani Lisha CLASSROOM INSTRUCTIONAL AIDE Work Phone: [facility] 08-25-2021 09:30-0400 Body weight 108.41 kg Juani Lisha CLASSROOM INSTRUCTIONAL AIDE Work Phone: [facility] 08-25-2021 09:30-0400 Diastolic blood pressure 72 mm[Hg] Juani Lisha CLASSROOM INSTRUCTIONAL AIDE Work Phone: [facility] 08-25-2021 09:30-0400 Heart rate 85 /min Juani Lisha CLASSROOM INSTRUCTIONAL AIDE Work Phone: [facility] 08-25-2021 09:30-0400 SaO2% (BldA) [Mass fraction] 97 % Juani Lisha CLASSROOM INSTRUCTIONAL AIDE Work Phone: [facility] 08-25-2021 09:30-0400 Systolic blood pressure 106 mm[Hg] Juani Lisha CLASSROOM INSTRUCTIONAL AIDE Work Phone: [facility] 06-27-2021 15:36-0400 Body height 161.3 cm Juani Lisha CLASSROOM INSTRUCTIONAL AIDE Work Phone: [facility] 06-27-2021 15:36-0400 Body mass index (BMI) [Ratio] 42.2 kg/m2 Juani Lisha CLASSROOM INSTRUCTIONAL AIDE Work Phone: [facility] 06-27-2021 15:36-0400 Body weight 109.77 kg Juani Lisha CLASSROOM INSTRUCTIONAL AIDE Work Phone: [facility] 06-27-2021 15:36-0400 Diastolic blood pressure 88 mm[Hg] Juani Lisha CLASSROOM INSTRUCTIONAL AIDE Work Phone: [facility] 06-27-2021 15:36-0400 Heart rate 88 /min Juani Lisha CLASSROOM INSTRUCTIONAL AIDE Work Phone: [facility] 06-27-2021 15:36-0400 SaO2% (BldA) [Mass fraction] 96 % Juani Lisha CLASSROOM INSTRUCTIONAL AIDE Work Phone: [facility] 06-27-2021 15:36-0400 Systolic blood pressure 134 mm[Hg] Juani Lisha CLASSROOM INSTRUCTIONAL AIDE Work Phone: [facility] 01-20-2020 11:39-0500 BP Diastolic 99 mm[Hg] [place], [place] 01-20-2020 11:39-0500 BP Systolic 146 mm[Hg] [place] 01-20-2020 11:39-0500 Pulse (Heart Rate) 89 /min [place], [place] 01-20-2020 08:32-0500 Body Temperature 97 [degF] [place] 01-20-2020 08:32-0500 Pulse Oximetry 100 % [place] 01-20-2020 08:32-0500 Respiratory Rate 18 /min [place] 01-17-2020 03:20-0500 BMI (Body Mass Index) 40.92 kg/m2 [place] 01-17-2020 03:20-0500 Body weight 108.14 kg [place] 01-14-2020 18:58-0500 Height 162.6 cm [place] 01-13-2019 09:16-0500 BMI (Body Mass Index) 38.19 kg/m2 Sabino Karine [facility] 01-13-2019 09:16-0500 Body Temperature 98.4 [degF] Sabino Milton [facility] 01-13-2019 09:16-0500 Body weight 99.34 kg Sabino Milton [facility] 01-13-2019 09:16-0500 BP Diastolic 88 mm[Hg] Sabino Milton [facility] 01-13-2019 09:16-0500 BP Systolic 127 mm[Hg] Sabino Milton [facility] 01-13-2019 09:16-0500 Height 161.3 cm Sabino Milton [facility] 01-13-2019 09:16-0500 Pulse (Heart Rate) 88 /min Sabino Milton [facility] 01-13-2019 09:16-0500 Pulse Oximetry 98 % Sabino Milton [facility] 01-13-2019 09:16-0500 Respiratory Rate 18 /min Sabino Milton [facility] 09-17-2017 18:28-0400 BMI (Body Mass Index) 36.25 kg/m2 [facility] 09-17-2017 18:28-0400 Body Temperature 98.2 [degF] [facility] 09-17-2017 18:28-0400 BP Diastolic 85 mm[Hg] [facility] 09-17-2017 18:28-0400 BP Systolic 128 mm[Hg] [facility] 09-17-2017 18:28-0400 Height 162.6 cm [facility] 09-17-2017 18:28-0400 Pulse (Heart Rate) 69 /min [facility] 09-17-2017 18:28-0400 Pulse Oximetry 97 % [facility] 09-17-2017 18:28-0400 Respiratory Rate 16 /min [facility] 09-17-2017 18:28-0400 Weight 95.8 kg [facility] 05-17-2017 10:05-0500 BMI (Body Mass Index) 38.62 kg/m2 [facility] 05-17-2017 10:05-0500 Body Temperature 98.1 [degF] [facility] 05-17-2017 10:05-0500 BP Diastolic 80 mm[Hg] [facility] 05-17-2017 10:05-0500 BP Systolic 131 mm[Hg] [facility] 05-17-2017 10:05-0500 Height 162.6 cm [facility] 05-17-2017 10:05-0500 Pulse (Heart Rate) 98 /min [facility] 05-17-2017 10:05-0500 P[facility] 98 % [facility] 05-17-2017 10:05-0500 Respiratory Rate 16 /min [facility] 05-17-2017 10:05-0500 Weight 102.06 kg [facility] Encounters Encounter Date Encounter Type Care Provider Facility Start: 03-02-2025 ambulatory Marivel Suffern Facility :[facility] Start: 12-11-2024 End: 12-11-[address] Marivel Danielson MD Work Phone: -Laboratory Specimen Start: 12-11-2024 End: 12-11-[address] Crissy Mcneal DO -Laboratory Specimen Work Phone: Start: 12-11-2024 End: 12-11-[address] [facility] Start: 12-11-2024 End: 12-11-2024 ambulatory Sidney MCKENZIE [facility] Start: 12-11-2024 End: 12-11-2024 ambulatory Marivel [place] Facility:[facility] Start: 09-12-2024 End: 09-12-[address] Marivel Danielson MD Work Phone: -Laboratory Start: 09-12-2024 End: 09-12-[address] Marivel Danielson MD -Laboratory Work Phone: Start: 09-12-2024 End: 09-12-2024 ambulatory Marivel Walkerlay Facility:[facility] Start: 09-10-2024 End: 09-10-[address] Marivel Danielson MD -[facility] Work Phone: Start: 09-10-2024 End: 09-10-[address] Marivel Danielson MD Work Phone: -[facility] Start: 09-03-2024 End: 09-03-[address] aMrivel Danielson MD Work Phone: -[facility] Start: 09-03-2024 End: 09-03-[address] Crissy Mcneal DO -[facility] Work Phone: Start: 09-02-2024 End: 09-02-[address] [facility] Work Phone: Start: 09-02-2024 End: 09-03-[address] Marivel Danielson MD Work Phone: [facility] Work Phone: Start: 08-07-2024 End: 08-07-[address] Cr[facility]y Mcneal [facility] Work Phone: Start: 08-07-2024 End: 08-07-2024 ambulatory Sidney Jackson SEM MANAGER-C Work Phone: [facility] Work Phone: Start: 07-22-2024 End: 07-22-2024 Emergency department patient visit Sidney Manuel SEM MANAGER-C Work Phone: -Emergency Department Work Phone: Start: 06-02-2024 End: 06-02-2024 Patient encounter procedure Jordan VANG -[facility] Work Phone: Start: 06-02-2024 End: 06-02-2024 ambulatory Jordan VANG Facility:[facility] Start: 04-10-2024 End: 04-10-2024 Patient encounter procedure Jesse VANG -[facility] Work Phone: Start: 04-10-2024 End: 04-10-2024 ambulatory Jesse VANG Facility:[facility] Start: 09-30-2023 End: 09-30-2023 ambulatory [facility] Start: 09-16-2023 End: 09-16-2023 ambulatory [facility] Start: 08-07-2023 Patient encounter status Sidney Manuel SEM MANAGER-C Work Phone: [facility] Start: 08-06-2023 Patient encounter status Sidney Keyneha SEM MANAGER-C Work Phone: [facility] Start: 07-20-2023 Non-patient / Non-visit No Dorina bueno [facility] Physician [facility] Start: 07-19-2023 Non-patient / Non-visit No Dorina bueno [facility] Physician [facility] Start: 07-18-2023 End: 07-20-2023 Evaluation and management of inpatient No Primary Care Physician [facility] Work Phone: Start: 07-15-2023 End: 07-15-2023 ambulatory [facility] Start: 07-12-2023 End: 07-12-2023 Patient encounter procedure No Primary Care Physician [facility] Work Phone: Start: 07-08-2023 End: 07-08-2023 ambulatory [facility] Start: 07-04-2023 End: 07-04-2023 ambulatory No Primary Care Physician [facility] Work Phone: Start: 07-04-2023 End: 07-04-2023 Patient encounter procedure No Primary Care Physician [facility]-Laboratory, Specimen Work Phone: Start: 07-04-2023 End: 07-04-2023 Patient encounter procedure No Primary Care Physician [facility] Work Phone: Start: 07-01-2023 End: 07-01-2023 ambulatory [facility] Start: 06-28-2023 End: 06-28-2023 Patient encounter procedure No Primary Care Physician [facility] Work Phone: Start: 06-24-2023 End: 06-24-2023 ambulatory [facility] Start: 06-21-2023 End: 06-21-2023 Patient encounter procedure No Primary Care Physician [facility] [place] [facility] Work Phone: Start: 06-18-2023 Non-patient / Non-visit No Dorina myles Care Physician [facility] Start: 06-18-2023 End: 06-18-2023 ambulatory No Primary Care Physician [facility] Work Phone: Start: 06-18-2023 End: 06-18-2023 Patient encounter procedure No Primary Care Physician [facility] Work Phone: Start: 06-17-2023 End: 06-17-2023 ambulatory [facility] Start: 06-14-2023 End: 06-14-2023 ambulatory No Primary Care Physician [facility] Work Phone: Start: 06-14-2023 End: 06-14-2023 Patient encounter procedure No Primary Care Physician [facility]-Laboratory Work Phone: Start: 06-10-2023 End: 06-10-2023 ambulatory [facility] Start: 06-07-2023 End: 06-07-2023 ambulatory No Primary Care Physician [facility] Work Phone: Start: 06-07-2023 End: 06-07-2023 Patient encounter procedure No Primary Care Physician [facility]-Ultrasound, [facility] Work Phone: Start: 06-07-2023 End: 06-07-2023 Patient encounter procedure No Primary Care Physician [facility] Work Phone: Start: 05-31-2023 End: 05-31-2023 Patient encounter procedure No Primary Care Physician [facility] Work Phone: Start: 05-25-2023 Non-patient / Non-visit No Dorina myles Care Physician [facility] Start: 05-25-2023 End: 05-25-2023 ambulatory No Primary Care Physician [facility] Work Phone: Start: 05-25-2023 End: 05-25-2023 Patient encounter procedure No Primary Care Physician [facility] Work Phone: Start: 05-24-2023 End: 05-24-2023 ambulatory [facility] Start: 05-17-2023 End: 05-17-2023 Patient encounter procedure No Primary Care Physician [facility] Work Phone: Start: 05-10-2023 End: 05-10-2023 ambulatory No Primary Care Physician [facility] Work Phone: Start: 05-10-2023 End: 05-10-2023 Patient encounter procedure No Primary Care Physician [facility]-Laboratory Work Phone: Start: 05-03-2023 End: 05-03-2023 ambulatory No Primary Care Physician [facility] Work Phone: Start: 05-03-2023 End: 05-03-2023 Patient encounter procedure No Primary Care Physician [facility] Work Phone: Start: 05-03-2023 End: 05-03-2023 ambulatory [facility] Start: 04-05-2023 End: 04-05-2023 Patient encounter procedure No Primary Care Physician [facility] Work Phone: Start: 04-03-2023 End: 04-03-2023 ambulatory [facility] Start: 03-07-2023 End: 03-07-2023 Patient encounter procedure No Primary Care Physician [facility] Work Phone: Start: 03-07-2023 End: 03-07-2023 ambulatory YUDITH CERDA [facility] Start: 03-06-2023 End: 03-06-2023 Patient encounter procedure No Primary Care Physician [facility] Work Phone: Start: 02-08-2023 End: 02-08-2023 Patient encounter procedure No Primary Care Physician [facility] Work Phone: Start: 01-11-2023 End: 01-11-[address] Valeria Aguilera Work Phone: [facility] Work Phone: Start: 01-11-2023 End: 01-11-[address] Valeria Aguilera Work Phone: [facility] Work Phone: Start: 12-14-2022 End: 12-14-[address] Valeria Aguilera Work Phone: [facility]-Laboratory, Specimen Work Phone: Start: 12-14-2022 End: 12-14-[address] Valeria Aguilera Work Phone: [facility] Work Phone: Start: 12-13-2022 End: 12-13-[address] Valeria Aguilera Work Phone: [facility]-Ultrasound, H Work Phone: Start: 12-13-2022 End: 12-13-[address] Valeria Aguilera Work Phone: [facility]-Laboratory, Specimen Work Phone: Start: 12-13-2022 End: 12-13-[address] Valeria Aguilera Work Phone: [facility] [place] [facility] Work Phone: Start: 11-30-2022 End: 11-30-[address] Valeria Aguilera Work Phone: [facility]-Ultrasound, H Work Phone: Start: 11-22-2022 End: 11-22-2022 Patient encounter procedure [facility] Work Phone: Start: 11-20-2022 End: 11-20-2022 ambulatory [facility] Work Phone: Start: 11-20-2022 End: 11-20-2022 Patient encounter procedure [facility]-Laboratory Work Phone: Start: 07-24-2022 End: 07-24-2022 ambulatory JUANI HUSAIN [facility] Start: 07-24-2022 End: 07-24-2022 Clinical Support Carolina Aceves [facility] D[facility] Comment on above: Scar (Primary Dx) Start: 07-11-2022 End: 07-11-2022 ambulatory JUANI HUSAIN [facility] Start: 07-11-2022 End: 07-11-2022 Patient encounter procedure Mckenna Suarez DO Work Phone: [facility] D[facility]at[facility] Comment on above: Pilar cyst of scalp (Primary Dx); Skin tenderness Start: 06-19-2022 Refill Juani Husain CLASSROOM INSTRUCTIONAL AIDE Work Phone: [facility] Start: 05-28-2022 End: 05-28-2022 ambulatory JUANI HUSAIN [facility] Start: 05-28-2022 End: 05-28-2022 Office outpatient new 30 minutes Juani Husain CLASSROOM INSTRUCTIONAL AIDE Work Phone: [facility] D[facility] Comment on above: EIC (epidermal inclu ryann cyst) (Primary Dx); Pilar cyst of scalp Start: 05-04-2022 End: 05-08-2022 amb[facility] Start: 05-04-2022 End: 05-08-2022 Encounter for general adult medical examination without abnormal findings ELEUTERIO CABALLERO [facility] Start: 04-16-2022 End: 04-20-2022 [facility] Start: 04-16-2022 End: 04-20-2022 Encounter for general adult medical examination without abnormal findings JUANI HUSAIN [facility] Start: 04-16-2022 End: 04-16-2022 Patient encounter status Juanicourtney Kennedy Lisha CLASSROOM INSTRUCTIONAL AIDE Work Phone: [facility] Phys[facility] Start: 04-16-2022 End: 04-16-2022 Periodic preventive med est patient 18-39 yrs Juani Kennedy Lisha CLASSROOM INSTRUCTIONAL AIDE Work Phone: [facility] Phys[facility] Comment on above: Wellness examination (Primary Dx); Scalp cyst; Hypertension, unspecified type Start: 03-15-2022 Refill Juani Marciawarner Husain CLASSROOM INSTRUCTIONAL AIDE Work Phone: [facility] Comment on above: Hypertension, unspec ified type Start: 11-22-2021 End: 11-26-2021 Orders Only Juani Marcia Lisha CLASSROOM INSTRUCTIONAL AIDE Work Phone: [facility] Phys[facility] Comment on above: Suspected UTI (Prima ry Dx) Start: 11-16-2021 End: 11-20-2021 [facility] Start: 11-16-2021 End: 11-16-2021 Office outpatient visit 10 minutes Juani Kennedy Lisha CLASSROOM INSTRUCTIONAL AIDE Work Phone: [facility] Comment on above: Urinary frequency (P rimary Dx); Suspected UTI Start: 09-10-2021 End: 09-10-2021 [facility] Start: 09-10-2021 End: 09-10-2021 Office outpatient visit 15 minutes Henrry Barahona CLASSROOM INSTRUCTIONAL AIDE Work Phone: [facility] Comment on above: Abrasion of left cor tana, initial encounter (Primary Dx) Start: 08-25-2021 End: 08-25-2021 ambulatory JUANICourtney KENNEDY [facility] Start: 08-25-2021 End: 08-25-2021 Office outpatient visit 15 minutes Juani Husain CLASSROOM INSTRUCTIONAL AIDE Work Phone: [facility] Comment on above: Uses oral contracept ion (Primary Dx); Hypertension, unspecified type Start: 07-28-2021 Refill Juani Husain CLASSROOM INSTRUCTIONAL AIDE Work Phone: [facility] Comment on above: Hypertension, unspec ified type Start: 06-28-2021 End: 07-02-2021 ambulatory [facility] Start: 06-27-2021 End: 06-27-2021 Office outpatient visit 25 minutes Juani Husain CLASSROOM INSTRUCTIONAL AIDE Work Phone: [facility] Comment on above: Hypertension, unspec ified type (Primary Dx); Amenorrhea Start: 01-14-2020 End: 01-20-2020 Evaluation and management of inpatient Seven Rodas Work Phone: [facility] Comment on above: S/P primary low gallego sverse (Primary Dx) Start: 01-13-2019 End: 01-13-2019 Office outpatient visit 15 minutes Sabino Milton Work Phone: [facility] Comment on above: Sinusitis, unspecifi ed chronicity, unspecified location (Primary Dx) Start: 01-07-2018 End: 01-07-2018 Emergency department patient visit Amador Addison Facility[facility] Start: 09-17-2017 End: 09-17-2017 Office outpatient new 30 minutes Samantha Watson Work Phone: [facility] Start: 05-17-2017 Office/outpatient vi sit, est, level 3 Juani Marcia Lisha Work Phone: [facility] Procedures [...] Adult depression scr eening assessment Juani Husain CNP Work Phone: Start: 03-02-2020 Microscopic observat ion [Identifier] in Cervix by Cyto stain Juani Husain CNP Work Phone: Start: 01-19-2020 Gluc bld gluc mntr d ev cleared fda spec home use Seven Kirkpatrick Rodas Work Phone: Start: 01-19-2020 Gluc bld gluc mntr d ev cleared fda spec home use Seven A Rodas Work Phone: Start: 01-18-2020 Gluc bld gluc mntr d ev cleared fda spec home use Seven Kirkpatrick Rodas Work Phone: Start: 01-18-2020 Gluc bld gluc mntr d ev cleared fda spec home use Seven A Rodas Work Phone: Start: 01-18-2020 Gluc bld gluc mntr d ev cleared fda spec home use Seven Kirkpatrick Rodas Work Phone: Start: 01-18-2020 Blood count hemoglobin Joce Valentine [employer] Work Phone: Start: 01-17-2020 Blood count complete automated Joce Valentine [employer] Work Phone: Start: 01-17-2020 Comprehensive metabo lic panel Joce Valentine [employer] Work Phone: Start: 01-17-2020 Blood typing serologic abo Seven A Rodas Work Phone: Start: 01-16-2020 Gluc bld gluc mntr d ev cleared fda spec home use Seven Pelletierh Work Phone: Start: 01-16-2020 Gluc bld gluc mntr d ev cleared fda spec home use Seven Kirkpatrick Rodas Work Phone: Start: 01-16-2020 Gluc bld gluc mntr d ev cleared fda spec home use Seven Kirkpatrick Rodas Work Phone: Start: 01-16-2020 Gluc bld gluc mntr d ev cleared fda spec home use Seven A Rodas Work Phone: Start: 01-15-2020 Gluc bld gluc mntr d ev cleared fda spec home use Seven Kirkpatrick Rodas Work Phone: Start: 01-15-2020 Gluc bld gluc mntr d ev cleared fda spec home use Seven Kaya Pelletierh Work Phone: Start: 01-15-2020 US LIMITED Al mylene Palmer Work Phone: Start: 01-15-2020 Gluc bld gluc mntr d ev cleared fda spec home use Seven Rodas Work Phone: Start: 01-15-2020 Blood count [...] at 38 weeks, 5/9 @ 12 with SM Jan 2020, plan RLTCS at 38 weeks, 59 @ 12 with 07/18/2023 Plan of Treatment Date Care Activity Detail Author Start: 11-08-2029 Tetanus vaccination Tetanus: Every 1 0yrs [facility] Start: 05-16-2026 Tetanus vaccination TETANUS EVERY 10 YR [facility] Start: 03-19-2025 Screening for malign ant neoplasm of cervix Pap Smear [facility] Start: 12-11-2024 [facility] Start: 07-22-2024 [facility] Start: 07-20-2023 Patient discharge [facility] Start: 07-19-2023 [facility] Start: 07-19-2023 Application of abdom inal corset [facility] Start: 07-19-2023 Consultation [facility] Start: 07-18-2023 End: 07-18-2023 [facility] Start: 07-18-2023 End: 07-18-2023 Notification of physician [facility] Start: 07-18-2023 Vital signs measurements [facility] Start: 07-18-2023 Application of intermittent pneumatic compression device [facility] Start: 07-18-2023 Administration of medication [facility] Start: 07-18-2023 Ambulation therapy management [facility] Start: 07-18-2023 Application of device [facility] Start: 07-18-2023 Application of ice collar, cap or bag [facility] Start: 07-18-2023 Application of intermittent pneumatic compression device [facility] Start: 07-18-2023 Assessment of risk o f venous thromboembolism [facility] Start: 07-18-2023 Catheterization of vein [facility] Start: 07-18-2023 Deep breathing and coughing exercises [facility] Start: 07-18-2023 Exercises [facility] Start: 07-18-2023 Introduction of urin tong catheter [facility] Start: 07-18-2023 Measuring intake and output [facility] Start: 07-18-2023 Notification of physician [facility] Start: 07-18-2023 Procedure discontinued [facility] Start: 07-18-2023 Provision of activit y privileges [facility] Start: 07-18-2023 Skin care [facility] Start: 07-18-2023 Vital signs measurements [facility] Start: 07-18-2023 Wound care [facility] Start: 07-18-2023 End: 07-18-2023 [facility] Start: 07-18-2023 Application of abdom inal corset [facility] Start: 07-18-2023 Documentation procedure [facility] Start: 07-18-2023 section Repeat C-Sect ion Bilateral Salpingectomy (Bilateral) [facility] Start: 07-18-2023 Verification routine [facility] Start: 07-18-2023 Admission procedure [facility] Start: 06-18-2023 [facility] Start: 06-18-2023 Nonstress test [facility] Start: 06-18-2023 Following clinical pathway protocol [facility] Start: 06-18-2023 End: 06-18-2023 [facility] Start: 06-18-2023 Obstetric monitoring [facility] Start: 06-18-2023 Vital signs measurements [facility] Start: 06-18-2023 Bacteria identified in Urine by Culture [facility] Start: 06-18-2023 Iv infusion hydratio n each additional hour HYDRATE IV INFUSION ADD-ON [facility] Start: 06-18-2023 Ther proph/dx njx iv push single/1st sbst/drug THER/PROPH/DIAG INJ IV PUSH [facility] Start: 06-18-2023 Patient discharge [facility] Start: 05-25-2023 [facility] Start: 05-25-2023 Nonstress test [facility] Start: 05-25-2023 Obstetric monitoring [facility] Start: 05-25-2023 Vital signs measurements [facility] Start: 05-25-2023 [facility] Start: 05-25-2023 Bacteria identified in Urine by Culture [facility] Start: 05-25-2023 Patient discharge [facility] Start: 04-16-2023 History and physical examination, annual for health maintenance Wellness Visit [facility] Start: 03-02-2023 Screening for malign ant neoplasm of cervix Pap Smear [facility] Start: 08-25-2022 COVID-19 Vaccine (3 - Booster for Pfizer series) COVID-19 Vaccine (3 - Booster for Pfizer series) [facility] Comment on above: Postponed from 05/04 (Patient Refused) Postponed from 01/27 (Patient Refused) Start: 08-25-2022 Depression screening using PHQ-9 (Patient Health Questionnaire 9) score Depression Screening (PHQ-2/9) [facility] Start: 08-25-2022 Hepatitis C screening Hepatitis C Sc reening [facility] Comment on above: Postponed from 09/23 (Patient Refused) Start: 08-25-2022 HIV screening HIV Screening [facility] Comment on above: Postponed from 09/23 (Patient Refused) Start: 07-24-2022 End: 07-24-2022 Patient encounter procedure 07/24/2022 10:10 AM EDT Office Visit [facility] [address] [place] [id number] Mckenna Suarez Jr., DO [address] [place] [address] [facility] Start: 07-12-2022 End: 10-11-2022 Procedure on tissue specimen Tissue Exam Pathology and Cytology Routine Pilar cyst of scalp Skin tenderness Expected: 07/12/2022, Expires: 10/11/2022 [facility] Work Phone: Comment on above: Expected: 07/12/2022 , Expires: 10/11/2022 Start: 07-11-2022 End: 07-11-2022 Patient encounter procedure [facility] Start: 05-29-2022 End: 05-29-2022 Patient encounter procedure 05/29/2022 Office Visit Dermatology Mckenna Suarez Jr., DO [address] [place] [address] [facility] Start: 03-01-2022 History and physical examination, annual for health maintenance Wellness Visit [facility] Start: 11-09-2021 Influenza vaccination [facility] Start: 05-04-2021 COVID-19 Vaccine (3 - Booster for Pfizer series) COVID-19 Vaccine (3 - Booster for Pfizer series) [facility] Start: 11-10-2019 Influenza vaccination Flu vaccine (# 1) [facility] Start: 06-05-2019 History and physical examination, annual for health maintenance Wellness Visit [facility] Start: 02-20-2019 Screening for malign ant neoplasm of cervix PAP SMEAR [facility] Start: 11-09-2018 Influenza vaccinatio n given SEQUENTIAL INFLUENZA VACCINE (#1) [facility] Start: 11-09-2017 Influenza vaccination SEQUENTI AL INFLUENZA VACCINE (#1) [facility] Start: 11-09-2016 Influenza vaccination SEQUENTI AL INFLUENZA VACCINE (#1) [facility] Start: 09-23-2009 Hepatitis C screening Hepatitis C Sc reening [facility] Start: 09-23-2006 HIV screening HIV Screening [facility] Start: 2003 Depression screening using PHQ-9 (Patient Health Questionnaire 9) score Depression Screening (PHQ-2/9) [facility] Start: 09-23-2002 Vaccination for conrado n papillomavirus HPV VACCINES (1 of 3 - Female 3 Dose Series) [facility] Start: 09-23-1994 History and physical examination, annual for health maintenance Wellness Visit [facility] Start: 1991 Depression screening using PHQ-9 (Patient Health Questionnaire 9) score DEPRESSION SCREENING (PHQ9) [facility] End: 11-16-2022 Bacteria identified in Unspecified specimen by Aerobe culture Urine Aerobic Culture Microbiology Routine Urinary frequency 1 Occurrences starting 11/16/2021 until 11/16/2022 [facility] Work Phone: Comment on above: 1 Occurrences starti ng 11/16/2021 until 11/16/2022 Bacteria identified in Unspecified specimen by Aerobe culture Urine Aerobic Culture Microbiology Routine Urinary frequency 11/16/2021 9:53 AM EDT [facility] End: 11-22-2022 Bacteria identified in Unspecified specimen by Aerobe culture Urine Aerobic Culture Microbiology Routine Suspected UTI 1 Occurrences starting 11/22/2021 until 11/22/2022 [facility] Comment on above: 1 Occurrences starti ng 11/22/2021 until 11/22/2022 Bacteria identified in Unspecified specimen by Aerobe culture Urine Aerobic Culture Microbiology Routine Suspected UTI 11/22/2021 11:49 AM EDT [facility] CBC W Auto Different ial panel - Blood [facility] Chlamydia/Gonorrhoea e Amplified RNA Chlamydia/Gonorrhoeae Amplified RNA Routine Acute vaginitis Ordered: 09/17/2017 [facility] End: 04-16-2023 Cobalamin (Vitamin B12) [Mass/volume] in Serum or Plasma Vitamin B12 Lab Routine Hypertension, unspecified type Wellness examination 1 Occurrences starting 04/16/2022 until 04/16/2023 [facility] Comment on above: 1 Occurrences starti ng 04/16/2022 until 04/16/2023 End: 04-17-2023 Complete blood count with white cell differential, manual CBC and Differential Lab Routine Hypertension, unspecified type Wellness examination 1 Occurrences starting 04/16/2022 until 04/17/2023 [facility] Work Phone: Comment on above: 1 Occurrences starti ng 04/16/2022 until 04/17/2023 End: 04-17-2023 Comprehensive metabolic 2000 panel - Serum or Plasma Comprehensive Metabolic Panel Lab Routine Hypertension, unspecified type Wellness examination 1 Occurrences starting 04/16/2022 until 04/17/2023 [facility] Comment on above: 1 Occurrences starti ng 04/16/2022 until 04/17/2023 Comprehensive metabo lic 2000 panel - Serum or Plasma [facility] Comprehensive metabo lic 1999 panel - Serum or Plasma [facility] Cortisol [Mass/volum e] in Serum or Plasma [facility] Genital Aerobic Culture Genital Aerobic Culture Routine Acute vaginitis Ordered: 09/17/2017 [facility] Glucose [Mass/volume ] in Serum or Plasma [facility] End: 04-17-2023 Hemoglobin A1c/Hemoglobin.total in Blood Hemoglobin A1c Lab Routine Hypertension, unspecified type Wellness examination 1 Occurrences starting 04/16/2022 until 04/17/2023 [facility] Comment on above: 1 Occurrences starti ng 04/16/2022 until 04/17/2023 Hemoglobin A1c/Hemoglobin.total in Blood [facility] End: 04-16-2023 Insulin [Units/volume] in Serum or Plasma Insulin, Total Lab Routine Hypertension, unspecified type Wellness examination 1 Occurrences starting 04/16/2022 until 04/16/2023 [facility] Comment on above: 1 Occurrences starti ng 04/16/2022 until 04/16/2023 End: 04-17-2023 Lipid 1996 panel - Serum or Plasma Lipid Panel Lab Routine Hypertension, unspecified type Wellness examination 1 Occurrences starting 04/16/2022 until 04/17/2023 [facility] Comment on above: 1 Occurrences starti ng 04/16/2022 until 04/17/2023 Lipid 1996 panel - S abbi or Plasma [facility] Lipid 1996 panel - S abbi or Plasma [facility] End: 04-16-2023 Microalbumin measurement, urine, quantitative Microalbumin/Creatinine Ratio, UR Random Lab Routine Hypertension, unspecified type Wellness examination 1 Occurrences starting 04/16/2022 until 04/16/2023 [facility] Comment on above: 1 Occurrences starti ng 04/16/2022 until 04/16/2023 Oxygen therapy [[facility] Data Set] Initiate Oxygen Therapy Protocol Respiratory Care Routine Daily until discontinued starting 01/17/2020 [facility] [employer] Comment on above: Daily until disconti nued starting 01/17/2020 Patient Education [facility] Work Phone: Patient referral [facility] Work Phone: Protein/Creatinine [Ratio] in Urine [facility] Spirometry panel Incentive wesley metry Respiratory Care Routine Every 2hr while awake until discontinued starting 01/17/2020 [facility] Comment on above: Every 2hr while awak e until discontinued starting 01/17/2020 Thyroid stimulating hormone measurement [facility] Thyroid stimulating hormone measurement [facility] End: 04-17-2023 Thyrotropin [Units/volume] in Serum or Plasma TSH Lab Routine Hypertension, unspecified type Wellness examination 1 Occurrences starting 04/16/2022 until 04/17/2023 [facility] Comment on above: 1 Occurrences starti ng 04/16/2022 until 04/17/2023 End: 04-17-2023 Thyroxine (T4) free [Mass/volume] in Serum or Plasma T4, Free Lab Routine Hypertension, unspecified type Wellness examination 1 Occurrences starting 04/16/2022 until 04/17/2023 [facility] Comment on above: 1 Occurrences starti ng 04/16/2022 until 04/17/2023 End: 11-22-2022 Urinalysis Urinalysis Lab Routine Suspected UTI 1 Occurrences starting 11/22/2021 until 11/22/2022 [facility] Work Phone: Comment on above: 1 Occurrences starti ng 11/22/2021 until 11/22/2022 Urinalysis Urinalysis Lab R outine Suspected UTI 11/22/2021 11:49 AM EDT [facility] End: 04-16-2023 Vitamin D, 25-hydroxy measurement Vitamin D, Total, 25-OH Lab Routine Hypertension, unspecified type Wellness examination 1 Occurrences starting 04/16/2022 until 04/16/2023 [facility] Comment on above: 1 Occurrences starti ng 04/16/2022 until 04/16/2023 Vitamin D, 25-hydrox y measurement [facility] Immunizations Immunization Date Immunization Notes Care Provider Veena ellison 11-22-2023 influenza, injectabl e, quadrivalent, preservative free Sidney Jackson [employer] Work Phone: [facility] 05-17-2023 tetanus toxoid, redu lydia diphtheria toxoid, and acellular pertussis vaccine, adsorbed No Primary Care Physician [facility] 01-11-2023 influenza, injectabl e, quadrivalent, preservative free Dr. Valeria Aguilera Work Phone: [facility] 04-16-2022 Seasonal, quadrivale nt, recombinant, injectable influenza vaccine, preservative free Juani Lisha [employer] Work Phone: [facility] 04-16-2022 flu vac qv 2021,19yr up,rcm-PF (FLUBLOK QUAD) syringe Juani Lisha [employer] Work Phone: [facility] 01-06-2021 Influenza, injectabl e, Madin [place] Canine Kidney, preservative free, quadrivalent Juani Lisha [employer] Work Phone: [facility] 12-02-2020 Covid (Pfizer) Dr. Marivel Danielson MD Work Phone: [facility] 11-11-2020 Covid (Pfizer) Dr. Marivel Danielson MD Work Phone: [facility] 01-17-2020 diphtheria, tetanus toxoids and acellular pertussis vaccine, unspecified formulation [facility] , [place] 01-17-2020 measles, mumps and rubella virus vaccine [facility] [place] 12-03-2019 Influenza, injectabl e, Madin [place] Canine Kidney, quadrivalent with preservative Juani Lisha [employer] Work Phone: [facility] 12-03-2019 influenza, injectable,quadrivalent , preservative free, pediatric [facility] 12-03-2019 influenza, seasonal, injectable, preservative free Juani Lisha [employer] Work Phone: [facility] 11-09-2019 diphtheria, tetanus toxoids and acellular pertussis vaccine Juani Lisha [employer] Work Phone: [facility] 11-09-2019 diphtheria, tetanus toxoids and acellular pertussis vaccine, unspecified formulation Juani Lisha [employer] Work Phone: [facility] 11-09-2019 tetanus toxoid, redu lydia diphtheria toxoid, and acellular pertussis vaccine, adsorbed Juani Lisha [employer] Work Phone: [facility] 03-18-2019 Influenza, injectabl e, Madin [place] Canine Kidney, quadrivalent with preservative Juani Lisha [employer] Work Phone: [facility] 03-18-2019 Influenza, injectabl e, Madin [place] Canine Kidney, preservative free, quadrivalent Dr. Marivel Danielson MD Work Phone: [facility] 05-16-2016 tetanus toxoid, redu lydia diphtheria toxoid, and acellular pertussis vaccine, adsorbed; Translations: [TDAP] Juani Lisha [facility] 03-16-2012 influenza, injectabl e, quadrivalent, preservative free Dr. Marivel Danielson MD Work Phone: [facility] 03-16-2012 influenza, seasonal, injectable Juani Lisha [employer] Work Phone: [facility] 12-04-2008 influenza, injectabl e, quadrivalent, preservative free Dr. Marivel Danielson MD Work Phone: [facility] 12-04-2008 influenza, seasonal, injectable Juani Lisha [employer] Work Phone: [facility] 12-04-2008 influenza, seasonal, intradermal, preservative free [facility] hepatitis A vaccine, pediatric/adolescent dosage, 2 dose schedule Juanicourtney Husain [facility] 10-18-2008 hepatitis A vaccine, unspecified formulation Juanicourtney Husain [facility] Work Phone: [facility] 10-18-2008 tetanus toxoid, redu lydia diphtheria toxoid, and acellular pertussis vaccine, adsorbed [facility] 12-30-2007 influenza, injectabl e, quadrivalent, preservative free Dr. Mraivel Danielson MD Work Phone: [facility] 12-30-2007 influenza, seasonal, injectable Juani Lisha [facility] Work Phone: [facility] 01-11-2007 influenza, injectabl e, quadrivalent, preservative free Dr. Marivel Danielson MD Work Phone: [facility] 01-11-2007 influenza, seasonal, injectable Juani Lisha [facility] Work Phone: [facility] 10-07-2006 meningococcal polysaccharide (groups A, C, Y and W-135) diphtheria toxoid conjugate vaccine (MCV4P) [facility] 10-07-2006 meningococcal polysaccharide vaccine (MPSV4) [facility] Work Phone: [facility] 10-07-2006 Meningococcal, MCV4, unspecified conjugate formulation(groups A, C, Y and W-135) [facility] 01-21-2006 influenza, injectabl e, quadrivalent, preservative free Dr. Marivel Danielson MD Work Phone: [facility] 01-21-2006 influenza, seasonal, injectable Juani Lisha [facility] Work Phone: [facility] 11-06-2003 measles, mumps and rubella virus vaccine Junai Lisha CNP Work Phone: [facility] 10-12-2003 measles, mumps and rubella virus [facility] 10[facility]2003 tetanus and diphther ia toxoids, adsorbed, for adult use Juani Lisha [facility] 10-12-2003 tetanus toxoid, adsorbed Juani Lisha [employer] Work Phone: [facility] 10-12-2003 tetanus toxoid, redu lydia diphtheria toxoid, and acellular pertussis vaccine, adsorbed Juani Lisha [employer] Work Phone: [facility] 10-19-1996 diphtheria, tetanus toxoids and acellular pertussis vaccine, unspecified formulation Juani Lisha [employer] Work Phone: [facility] 10-19-1996 DTaP Juani Lisha [facility] 10-19-1996 poliovirus vaccine, inactivated Juani Lisha [facility] 09-18-1996 diphtheria, tetanus toxoids and acellular pertussis vaccine Dr. Marivel Danielson MD Work Phone: [facility] 09-18-1996 diphtheria, tetanus toxoids and acellular pertussis vaccine, unspecified formulation Juani Lisha [employer] Work Phone: [facility] 09-18-1996 poliovirus vaccine, inactivated Dr. Marivel Danielson MD Work Phone: [facility] 09-18-1996 poliovirus vaccine, unspecified formulation Juani Lisha [employer] Work Phone: [facility] 05-01-1994 hepatitis B vaccine, pediatric or pediatric/adolescent dosage Juani Lisha [facility] 11-24-1993 hepatitis B vaccine, pediatric or pediatric/adolescent dosage Juani Lisha [facility] 11-23-1993 hepatitis B vaccine, pediatric or pediatric/adolescent dosage Dr. Marivel Danielson MD Work Phone: [facility] 10-20-1993 hepatitis B vaccine, pediatric or pediatric/adolescent dosage Juani Lisha [facility] 04-03-1993 diphtheria, tetanus toxoids and acellular pertussis vaccine Dr. Marivel Danielson MD Work Phone: [facility] 04-03-1993 diphtheria, tetanus toxoids and acellular pertussis vaccine, unspecified formulation Juani Lisha [employer] Work Phone: [facility] 04-03-1993 haemophilus influenz ae type b vaccine, conjugate unspecified formulation Juani Lisha [facility] 04-03-1993 haemophilus influenz ae type b vaccine, PRP-T conjugate Dr. Marivel Danielson MD Work Phone: [facility] 04-03-1993 measles, mumps and rubella virus vaccine Juani Lisha [employer] Work Phone: [facility] 04-03-1993 poliovirus vaccine, inactivated Dr. Marivel Danielson MD Work Phone: [facility] 04-03-1993 poliovirus vaccine, unspecified formulation Juani Lisha [employer] Work Phone: [facility] 03-23-1992 diphtheria, tetanus toxoids and acellular pertussis vaccine Dr. Marivel Danielson MD Work Phone: [facility] 03-23-1992 diphtheria, tetanus toxoids and acellular pertussis vaccine, unspecified formulation Juani Lisha [employer] Work Phone: [facility] 03-23-1992 haemophilus influenz ae type b vaccine, conjugate unspecified formulation Juani Lisha [employer] Work Phone: [facility] 03-23-1992 haemophilus influenz ae type b vaccine, PRP-T conjugate Dr. Marivel Danielson MD Work Phone: [facility] 01-20-1992 diphtheria, tetanus toxoids and acellular pertussis vaccine Dr. Marivel Danielson MD Work Phone: [facility] 01-20-1992 diphtheria, tetanus toxoids and acellular pertussis vaccine, unspecified formulation Juani Lisha [employer] Work Phone: [facility] 01-20-1992 haemophilus influenz ae type b vaccine, conjugate unspecified formulation Juani Lisha [employer] Work Phone: [facility] 01-20-1992 haemophilus influenz ae type b vaccine, PRP-T conjugate Dr. Marivel Danielson MD Work Phone: [facility] 01-20-1992 poliovirus vaccine, inactivated Dr. Marivel Danielson MD Work Phone: [facility] 01-20-1992 poliovirus vaccine, unspecified formulation Juani Husain [employer] Work Phone: [facility] 1991 diphtheria, tetanus toxoids and acellular pertussis vaccine Dr. 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 Marivel Danielson MD Work Phone: [facility] 1990 poliovirus vaccine, inactivated Dr. Marivel Danielson MD Work Phone: [facility] 1990 poliovirus vaccine, unspecified formulation Juani Husain CLASSROOM INSTRUCTIONAL AIDE Work Phone: [facility] NEGATED: Highlighted row has not occurred!01-20-2020 measles, mumps and rubella virus vaccine [place], [place] Comment on above: Deferred: - rubella immune NEGATED: Highlighted row has not occurred!01-20-2020 tetanus toxoid, reduced diphtheria toxoid, and acellular pertussis vaccine, adsorbed [place], [place] Comment on above: Deferred: - had duri ng NEGATED: Highlighted row has not occurred!01-19-2020 measles, mumps and rubella virus vaccine [place] NEGATED: Highlighted row has not occurred!01-19-2020 tetanus toxoid, reduced diphtheria toxoid, and acellular pertussis vaccine, adsorbed [place], [place] Payers Date Payer Category Payer Unknown MMO [employer]PER[employer] PPO [id number] 2020-Present [phone] [address] [place] [address] [id number] 2020 Unknown [id number] 2019 Private Health Insurance [facility] [id number] 2019-Present [phone] [address] [place] [address] [id number] .[id number] 2018 Unknown OKSANA LEMOS/PREF/HMO/PPO xxxxxxxxxxxx 2018-Present xxxxxxxxxxxx [id number] .7.3.289923.315 2018 Private Health Insurance [id number] 2018 Self-pay 1990 Unknown [id number] 2840.1.278961.3.579.2 .1991 Unknown [id number] 2.840.1.642364.3.579.2 .1991 Unknown [id number] 2.16840.1.566152.3.579.2 .1991 Unknown [id number] 2.16840.1.123353.3.579.2 .1991 Unknown [id number] 216840.1.856735.3.579.2 .1991 Unknown [id number] 2.16840.1.105541.3.579.2 .1991 Unknown [id number] 2.16840.1.066790.3.579.2 .1991 Unknown [id number] 2.16840.1.347652.3.579.2 .1991 Unknown [id number] 2.16840.1.819266.3.579.2 .1991 Unknown [id number] 2.16.840.1.498557.3.579.2 .903 1991 Unknown [id number] 2.16.840.1.444071.3.579.2 .90 1991 Unknown [id number] 2.16.840.1.917301.3.579.2 1991 Unknown [id number] 2.16.840.1.546833.3.579.2 1991 Unknown [id number] 2.16.840.1.288501.3.579.2 1991 Unknown [id number] 2..840.1.899564.3.579.2 1991 Unknown [id number] 2..840.1.364832.3.579.2 1991 Unknown [id number] .840.1.444501.3.579.2 1991 Unknown [id number] 2..840.1.805623.3.579. 1991 Unknown [id number] ..840.1.557171.3.579.2 1991 Unknown [id number] 840.1.325528.3.579.2 1991 Unknown [id number] ..840.1.878408.3.579.2 1991 Unknown [id number] ..840.1.531457.3.579.2 1991 Unknown [id number] ..840.1.447848.3.579.2 1991 Unknown [id number] 2.16.840.1.118961.3.579.2 1991 Unknown [id number] 2.16.840.1.291864.3.579.2 .479 Unknown xxxxxxxxx 2.16.840.1.455024.3.249.1 3 Unknown [id number] 2.16.840.1.095234.3.579.2 .373 Unknown [id number] 2.16.840.1.485324.3.579.2 .462 Unknown [id number] 2.16.840.1.866189.3.579.2 .462 Unknown [id number] 2.16.840.1.362948.3.579.2 .462 Unknown [id number] 2.16.840.1.453739.3.579.2 .462 Unknown [id number] 2.16.840.1.104207.3.579.2 .462 Unknown [id number] 2.16.840.1.589208.3.579.2 .462 Unknown [id number] 2.16840.1.790467.3.579.2 .462 Unknown [id number] 2.16840.1.600358.3.579.2 .462 Unknown [id number] 2.16840.1.745077.3.579.2 .462 Unknown [id number] 2.16840.1.607382.3.579.2 .462 Unknown [id number] 2.16840.1.123069.3.579.2 .462 Social History Date Type Detail Facility Start: 05-17-2017 End: 09-10-2024 Tobacco smoking status NMIS Never smoker [facility] Start: 1990 Sex Assigned At Not on file [facility] Start: 01-13-2019 Alcohol intake Current drinke r of alcohol (finding) [facility] Start: 07-07-2015 Alcohol Comment socially [facility] Start: 01-19-2020 End: 06-27-2021 Tobacco use and exposure Never used [place] Start: 01-19-2020 End: 04-16-2022 Alcohol intake Ex-drinker (finding) [place] Start: 06-17-2021 End: 07-23-2022 Exposure to SARS-CoV-2 (event) Not sure [facility] Start: 06-27-2021 End: 11-16-2021 Cigarette pack-years [facility] Start: 11-16-2021 History SDOH Alcohol Frequency 1 [facility] Start: 11-16-2021 History SDOH Alcohol Std Drinks 0 [facility] Start: 11-16-2021 History SDOH Social Connections Phone 5 [facility] Start: 11-16-2021 History SDOH Social Connections Pentecostalism 3 [facility] Start: 11-16-2021 History SDOH Social Connections Meetings 2 [facility] Start: 11-16-2021 History SDOH Financial 4 [facility] Start: 08-25-2021 End: 11-16-2021 Humiliation, Afraid, Rape, and Kick questionnaire [HARK] [facility] Within the last year , have you been afraid of your partner or ex-partner? No [facility] Do you belong to any clubs or organizations such as worship groups, [employer]s, [employer] or athletic groups, or school groups? Yes [...] a little [facility] (I/We) worried luz maria er (my/our) food would run out before (I/we) got money to buy more. Never true [facility] Start: 03-01-2021 End: 07-18-2023 Tobacco smoking status NHIS Unknown if ever smoked [facility] Start: 1990 Sex Assigned At Female [facility] Sexual Orientation Heterosexual (finding) [facility] NEGATED: Highlighted row Not [facility] Medical Equipment Procedure Code Equipment Code [...] Assessment Result Facility 07-19-2023 Cognitive function Voice/Name [facility] Work Phone: Clinical Notes 10-05-2020 to 09-10-2024 Note Date & Type Note Facility 09-10-2024 Evaluation note Diagnosis Onset Date Resolution Abnormal uterine bleeding acute September 10, 2024 8 :55am PCOS (polycystic ovarian syndrome) acute September 10, 2024 8:55am Screening for depression noneactive September 10, 2024 8 :55am Establishing care with new doctor, encounter for noneactive September 10, 2024 8 :55am Stress at home noneactive September 10, 2024 8:55am Essential hypertension noneactive 2024 8:55am Morbid obesity with body mass index (BMI) of 45.0 to 49.9 in adult noneactive September 10, 2024 8 :55am Abnormal uterine bleeding acute December 11 7:53am Menorrhagia acute December 11, 2024 7:53am Obesity (BMI 30-39.9) acute Dec 7:53am PCOS (polycystic ovarian syndrome) acute December 11, 025 7:53am Hypertension chronic December 11, 2024 7:53am [facility] Work Phone: 1(739) 930-444306-25-2025 Evaluation note* Diagnosis Onset Date Resolution Status Admit Date Abnormal uterine bleeding acute September 02, 2024 [...] adult noneactive September 10, 2024 8 :55am [facility] Work Phone: 1(316) 529-370605-30-2025 Evaluation note* Diagnosis Onset Date Resolution Status Admit Date Menorrhagia acute August 07 2:05pm Modified White class B pregestational diabetes mellitus acute August 07, 2024 2:05pm Obesity (BMI 30-39.9) acute August 07, 2024 2:05pm [facility] Work Phone: 1(319) 595-366805-30-2025 Evaluation note* Diagnosis Onset Date Resolution Status [...] September 02 8:22am Hypertension chronic September 02, 025 8:22am [facility] Work Phone: 1(401) 784-255505-30-2025 Evaluation note* Diagnosis Onset Date Resolution Status [...] adult noneactive September 10, 2024 8 :55am [facility] Work Phone: 1(724) 355-837905-30-2025 Evaluation note* Diagnosis Onset Date Resolution Status [...] adult noneactive September 10, 2024 8 :55am [facility] Work Phone: 1(616) 120-223905-14-2025 Discharge summary Author Abram Watters [facility] Note Date/Time July 22, 2024 1:57p m [facility] Medical Records Department [address] [place] [address] Emergency Department Summary 07/22/24 MR#: [id number] Acct: [id number] Name: SHAWNANANCYAME DAVDI Rep #:[id number] : 1990 33 From: [...] Maximum Severity: Moderate Worsened by: Movement and [place] Relieved by: Remaining Still Bleeding Issue: Positive [...] antithrombotic or anticoagulant. 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 Elaina Castanon. Office recommended she come [...] Type: coffee frequency: 1-2 times per week nick/buddhism: Jew seatbelt use: always do you feel safe at home: Yes additional social history: - Robin (ODMARY ANNE) ROS ROS ED Constitutional Constitutional ED: Denies [...] that time. Note was authored by physician safety admin assistant Jesse Pinto), Prior labs and Other ([employer] office visit for postcoital bleeding. She was [...] % (Auto) 67.5 Lymph % (Auto) 24.5 [place] % (Auto) 5.5 Eos % (Auto) 1.7 Baso % (Auto) 0.4 Absolute Neuts (auto) 6.0 Absolute Lymphs (auto) 2.18 Nucleated RBC % 0 HCG, Quant < 1 Radiography Diagnostic Testing: Clinical Impression(s) from Imaging Studies Transvaginal US 07/22/24 11:30 IMPRESSION: The ovaries meet the criteria for polycystic ovary syndrome. The endometrium measures 0.5 cm. [facility] Discussion w/another healthcare provider: Coremaker Helper (Spoke with Dr. Crissy Sal who recommended [...] mg tablet 10 mg PO QHS PNV #72-kjal-qbrcb acid-omega3 30 mg iron-10 mg iron-1 mg capsule 1 cap PO DAILY labetalol 100 mg tablet 100 mg PO BID Qty: 180 1RF fluticasone propionate [24 Hour Allergy Relief] 50 mcg/actuation spray,suspension 1 spray intranasal QHS PRN (Reason: allergy symptoms) Rx Instructions: administer into each nostril Primary Care Provider: Marivel Danielson Referrals: Marivel Danielson MD [Primary Care Provider] - Print Language: Kyrgyz Disposition Disposition: Home, Self Care What to do if you have Problems For any increased pain, shortness of breath, bleeding, nausea or vomiting, chestpain, or any unexpected problems, contact your Primary Care Provider. Call [facility] ([phone]) or report to the closest Emergency Room. Call 911 if necessary. 07/22/24 0089 <Electronically signed by Abram Watters MD> Cosigner Signature (if applicable): CC: Dr. Marivel Danielson MD ~ Signed [facility] Work Phone: 1(157) 792-837505-14-2025 Discharge summary [facility] Medical Records Department [address] [place] [address] Emergency Department Summary 07/22/24 MR#: [id number] Acct: [id number] Name: NANCY MATOS Rep #:[id number] : [...] Maximum Severity: Moderate Worsened by: Movement and [place] Relieved by: Remaining Still Bleeding Issue: Positive [...] antithrombotic or anticoagulant. 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 Gregg. Office recommended she come to [...] Type: coffee frequency: 1-2 times per week nick/buddhism: Jew seatbelt use: always do you feel safe [...] that time. Note was authored by physician safety admin assistant Jesse Pinto), Prior labs and Other ([employer] office visit for postcoital bleeding. She was [...] % (Auto) 67.5 Lymph % (Auto) 24.5 [place] % (Auto) 5.5 Eos % (Auto) 1.7 Baso % (Auto) 0.4 Absolute Neuts (auto) 6.0 Absolute Lymphs (auto) 2.18 Nucleated RBC % 0 HCG, Quant < 1 Radiography Diagnostic Testing: Clinical Impression(s) from Imaging Studies Transvaginal US 07/22/24 11:30 IMPRESSION: The ovaries meet the criteria for polycystic ovary syndrome. The endometrium measures 0.5 cm. Reading Location: [facility] Management Discussion w/another healthcare provider: Coremaker Helper (Spoke with Dr. Crissy Sal who recommended [...] mg tablet 10 mg PO QHS PNV #16-vxna-kjaah acid-omega3 30 mg iron-10 mg iron-1 mg capsule 1 cap PO DAILY labetalol 100 mg tablet 100 mg PO BID Qty: 180 1RF fluticasone propionate [24 Hour Allergy Relief] 50 mcg/actuation spray,suspension 1 spray intranasal QHS PRN (Reason: allergy symptoms) Rx Instructions: administer into each nostril Primary Care Provider: Marivel Danielson Referrals: Marivel Danielson MD [Primary Care Provider] - Print Language: Kyrgyz Disposition Disposition: Home, Self Care What to do if you have Problems For any increased pain, shortness of breath, bleeding, nausea or vomiting, chestpain, or any unexpected problems, contact your Primary Care Provider. Call [facility] ([phone]) or report tothe closest Emergency Room. Call 911 if necessary. 07/22/24 1357 Cosigner Signature (if applicable): CC: Dr. Marivel Danielson MD ~ Signed [facility]05-14-2025 Radiology Diagnostic study note [facility] Imaging Services [address] [place], [place] [address] Transvaginal Non- MR#: [id number] Acct: [id number] Name: NANCY MATOS Rep #: [id number] : 1990 F 33 From: Etienne Stapleton MD PCP: Dr. Marivel Danielson MD Status: REG ER Study:Transvaginal Non- Date of Exam: 07/22/24 Exam# [id number] Ordering Dr: Basil Watters MD PROCEDURE: TRANSVAGINAL [...] Danielson MD; Dr. Abram Watters MD ~ Oiler And Greaser: Signed [facility]01-31-2025 Evaluation note* Diagnosis Onset Date Resolution Status Admit Date Obesity (BMI 30-39.9) acute Mar 10:25am PCOS (polycystic ovarian syndrome) acute April 10 10:25am Hypertension chronic March 10:25am [facility] Work Phone: 1(628) 749-969705-11-2024 Discharge summary Author Elaina Castanon [facility] July 20, 2023 9:52am Note Date/Time July 20, 2023 9:50a m [facility] Medical Records Department [address] [place] [address] Instructions for Home/Discharge Instructions 07/20/23 0949 MR#: [id number] Acct: [id number] Name: NANCY MATOS Rep #:[id number] : 1990 32 From: Elaina wilson MD PCP: Doreen Physician,No Primary Status :ADM IN Discharge Instructions Diet [...] Up With: Elaina Castanon MD When: Call [phone] to make an appointment for an incision check in 1-2 weeks. Test Results: Test results from this visit will be discussed in further detail at your follow- up appointment, if applicable. Discharge Plan Admission Admit Date/Time: 07/18/23 09:35 Attending Provider: Elaina Castanon Primary Care Provider: Doreen Physician,No Primary Discharge Orders/Prescriptions Prescriptions: New oxycodone-acetaminophen [Percocet] [...] 1 0RF Rx Instructions: As directed PNV #77-vzyv-bslpp acid-omega3 30 mg iron-10 mg iron-1 mg [...] CC: No Primary Care Physician ~ Signed [facility] Work Phone: 1(481) 746-586405-11-2024 Progress note Author Elaina Castanon [facility] July 20, 2023 9:49am Note Date/Time July 20, 2023 9:49a m [facility] [place] Medical Records Department [address] [place] [address] Progress Note - OBGYN 07/20/23 0948 MR#: [id number] Acct: [id number] Name: NANCY MATOS Rep #:[id number] : 1990 32 From: Elaina wilson MD PCP: Care Physician,No Primary Status :ADM IN Location: [id number] Subjective Subjective Patient doing well without complaints. [...] Assessment & Plan (1) delivery delivered: COMMENT: JAEL Bowles PLAN: Plan s/p LTCS PPD # 2 1. routine post care 2. breast feeding- support given 3. rh positive 4. rubella immune 07/20/23 0949 <Electronically signed by Elaina Castanon MD> Cosigner Signature (if applicable): CC: ~ Signed [facility] Work Phone: 1(586) 981-235305-11-2024 History and physical note Author Elaina Castanon [facility] July 20, 2023 9:43am Note Date/Time July 20, 2023 9:43a m [facility] Medical Records Department [address] [place] [address] H&P Exam - P[employer] S[employer] LOAD AND UNLOAD 07/20/23 0939 MR#: [id number] Acct: [id number] Name: NANCY MATOS Rep #:[id number] : 1990 32 From: Elaina wilson MD PCP: Care Physician,No Primary Status :ADM IN Location: [id number] HPI - General General Date of Admission: 07/18/23 HPI Narrative NANCY MATOS, is a 32 F who presents for RLTCS. Maternal Data Information AGAPITO Calculator Estimated Delivery Date Method Current WG Current Estimate 08/01/23 Ultrasound #1 38w 2d PFSH PFSH Medical History (Updated 07/20/23 @ 09:42 by [...] type: does not use diet: low carbohydrate nick/buddhism: Jew seatbelt use: always do you feel safe at home: Yes additional social history: - Robin (ODOT) History 2 Elective abortions Hx Para 1 Spontaneous abortions Hx # Term Pregnancies 1 Ectopic pregnancies Hx # Pregnancies Multiple births # of living children 1 Past Pregnancies Del. Date Name GA/Weeks Outcome Route Bth Weight Gen Labor Lgth Anesthesia Del Locatn Provider [...] oz) 123/83 Negative -?-?-?-?-?-?-?-?-?-?-?-?- Negative 171 -?-?-?-?-?-?-?-?-?-?-?-?- JV- pt has a his tory of insulin resistance on metformin. will order a continuous glucose monitor. on labetalol and h/o severe pre-e with IUGR> start baby asa. has baseline labs including NIPT today. JV- pt has a history of insu loulou resistance [...] daughter and , desires genetic counseling with [facility]. 04/05/23 -?-?-?-?-?-?-?-?-?-?-?-?- 23w 1d 244 lb [...] Negative 145 -?-?-?-?-?-?-?-?-?-?-?-?- SM- sees king patti valentine diabetes control, no vb lof good fm [...] oz) 120/82 Negative -?-?-?-?-?-?-?-?-?-?-?-?- Negative 130 -?-?-?-?-?-?-?-?-?-?-?-?- -No VB, LOF or CTX. GBS done. NST [...] Assessment & Plan (1) delivery delivered: COMMENT: [facility] PLAN: Plan proceed with [facility] 07/20/23 0943 <Electronically signed by Elaina Castanon MD> Cosigner Signature (if applicable): CC: Dr. Elaina Castanon MD; No Primary Care Physician~ Signed [facility] Work Phone: 1(523) 856-556505-11-2024 Procedure [facility] 07-19-2023 Progress note Author Lucille Gaytan [facility] July 19, 2023 12:39pm Note Date/Time July 19, 2023 12:39 pm [facility] Medical Records Department [address] [place] [address] Progress Note - OBGYN 07/19/23 1237 MR#: [id number] Acct: [id number] Name: NANCY MATOS Rep #:[id number] : 1990 32 From: Lucille Gaytan CNM PCP: Care Physician,No Primary Status :ADM IN Location: [place] [address]-1 Subjective Subjective Patient doing well without complaints. [...] 1580 / 1580 800 / 800 Balance 1993.42 / 1993.42 -800 / -800 Lab / Micro Data [...] and twice wkly NST at 32 wk. 05/03 growth adequate (7) History of prior with IUGR : COMMENT: third trimester testing already planned (8) History of : COMMENT: Jan 2020, plan RLTCS at 38 weeks, 07/17 @ 12 with (9) Supervision of high-risk : QUALIFIERS: Trimester: second trimester Qualified Code(s): O09.92- Supervision of high risk , unspecified, second trimester COMMENT: PRR AGAPITO: 08/01/2023 boy Latta PC: Fahad Spouse: Robin (10) Obesity affecting [...] Cosigner Signature (if applicable): CC: ~ Signed [facility] Work Phone: 1(203) 260-923405-16-2023 History of Present illness Narrative* Carolina Aceves MA - 07/24/2022 10:30 AM EDT Patient here for nurse visit suture removal. Suture well intact no complications. No questions at this time. Follow up scheduled as needed. documented in this [id number] History of Present illness Narrative* Mckenna Suarez Jr., DO - 07/11/2022 2:15 PM EDT OPERATIVE REPORT [...] BY: Mckenna Suarez DO documented in this [id number] History of Present illness Narrative* Juani Husain, KRAIG - 04/16/2022 10:59 AM EST [facility] [address] [facility] [id number] Patient Demographics: Nancy Pandya Shawna [address] [facility] [address] (home) Date of : 1990 HPI WITH [...] Take by mouth ., Disp: , Rfl: NGM09-DJ-ay2-hyx-xkg-jyej oil 400 mcg-35 mg -25 mg-5 mg [...] SMR TURINATES; Surgeon: Rober Castle MD; Location: [facility] [place]; Service: WISDOM TOOTH EXTRACTION age 17 [...] IMMUNE SYSTM,PLUS ORAL) Take by mouth . QXA64-FC-ei1-eya-jyx-weoz oil 400 mcg-35 mg -25 mg-5 mg [...] Review Juani Husain CNP documented in this [id number] History of Present illness Narrative* Juani Husain CNP - 11/16/2021 9:28 AM EDT [facility] [address] [place] [address] [facility] [address] [place] [phone] Patient Demographics: Nancy Ya Matos [address] [phone] (home) Date of : 1990 HPI WITH [...] Take by mouth ., Disp: , Rfl: XPN01-DG-ez9-jiu-cfk-feim oil 400 mcg-35 mg -25 mg-5 mg [...] SMR TURINATES; Surgeon: Rober Castle MD; Location: [facility]; Service: WISDOM TOOTH EXTRACTION age 17 Current [...] IMMUNE SYSTM,PLUS ORAL) Take by mouth . JJJ41-IX-ra5-jkq-oxe-qqdx oil 400 mcg-35 mg -25 mg-5 mg [...] Review Juani Husain CNP documented in this [id number] Instructions* Patient Instructions* Henrry Barahona CNP - 09/10/2021 1:48 PM EDT Recommend He/she should return to urgent care, make an appointment with their family physician, or go to the emergency room if symptoms persist or get acutely worse. Take over the counter tylenol or ibuprofen as needed for pain- follow package instructions. FOLLOW UP WITH business development specialist as soon as possible REST AND HYDRATE WELL Instill medication as prescribed Can apply cool or warm compress over left eye as needed for comfort - no more then 15 min. At a time * Attachments The following attachments cannot be sent through Care Everywhere. * Corneal Scratches (Kyrgyz) documented in this [id number] History of Present illness Narrative* Henrry Barahona CNP - 09/10/2021 1:35 PM EDT Images from the original note were not included. Patient Name: [facility] Location: Nancy Ya [address], [address] [place] [phone] Date Of : Date Of Visit: 1990 09/10/2021 MRN# Provider: [id number] Henrry Barahona CNP Chief Complaint Patient presents [...] prescribed and recommended to follow up with business development specialist if symptoms persists. Per exam- no [...] SMR TURINATES; Surgeon: Rober Castle MD; Location: [facility] [place]; Service: WISDOM TOOTH EXTRACTION age 17 [...] for 7 days . 10 mL 0 GSS81-ZO-zr8-gry-ntv-oxre oil 400 mcg-35 mg -25 mg-5 mg [...] pain- follow package instructions. FOLLOW UP WITH business development specialist as soon as possible REST AND HYDRATE WELL Instill medication as prescribed Can apply cool or warm compress over left eye as needed for comfort - no more then 15 min. At a time documented in this [id number] History of Present illness Narrative* Juani Husain CNP - 08/25/2021 10:02 AM EDT [facility] [address] [facility] [address] [facility] [id number] Patient Demographics: Nancy Fun [address] [facility] [address] (home) Date of : 1990 HPI WITH [...] Take by mouth ., Disp: , Rfl: VTD35-GH-os6-oav-tka-urgx oil 400 mcg-35 mg -25 mg-5 mg [...] SMR TURINATES; Surgeon: Rober Castle MD; Location: [facility] [place]; Service: WISDOM TOOTH EXTRACTION age 17 Current Outpatient Medications Medication Sig Dispense Refill cetirizine (ZYRTEC) 10 MG tablet Take 10 mg by mouth daily . metFORMIN (GLUCOPHAGE-XR) 500 MG 24 hr tablet norethindrone (MICRONOR) 0.35 mg tablet nut.tx.comp. immune systm,reg (NUT.TX.COMP. IMMUNE SYSTM,PLUS ORAL) Take by mouth . BOP60-VS-cg0-qzw-yef-sznw oil 400 mcg-35 mg -25 mg-5 mg [...] PHQ-2 Total Score 0 documented in this [id number] Telephone encounter Note* Telephone Encounter - Elisa Sloan LPN - 07/28/2021 8:54 AM EDT Last OV 06/28/21, next OV 07/31/21 [id number] Telephone encounter Note* Telephone Encounter - Elisa [...] almost out of Labetal[place]and will need to parts picker a refill today. [id number] Miscellaneous Notes* Telephone Encounter - Elisa Sloan [...] almost out of [place] will need to parts picker a refill today. documented in this [id number] NotePatient Outreach (SHAILANAV) NANCY MATOS ([id number]) 1990 F Date Time Provider Department 10/05/20 [...] Care gap - annual visit Payer: Payor: FORDEM / Plan: BLUE CARD PPO / Product [...] future healthcare decisions with a power of attorney general, living will, or advance directives? Referrals: Message [...] Hallucinates Date Reviewed: 04/17/2019 Reviewed by: Doris ([facility]) Podlogar - Fully Assessed Reason for [...] (None) Encounter Status:Closed by ELIZA GASTELUM on 10/05/20[facility] 10-05-2020 NoteHNO ID: [id number] Author: Eliza Gastelum Service: ? Author Type: [...] future healthcare decisions with a power of attorney general, living will, or advance directives? Referrals: Message Sent to Practice: Navigation Signature: Eliza Gastelum October 05, 2020 9:50 [facility] note* Diagnosis Hypertension, unspecified type- Primary Amenorrhea Absence of menstruation [facility], unspecified type [facility] Diagnosis Uses oral contraception- Primary Hypertension, unspecified type [facility] Diagnosis Abrasion of left cornea, initial encounter- Primary [facility] Diagnosis Urinary frequency- Primary Suspected UTI [facility] Diagnosis Suspected UTI- Primary [facility] Diagnosis Hypertension, unspecified type [facility] Diagnosis Wellness examination- Primary Scalp cyst Sebaceous cyst Hypertension, unspecified type [facility] Diagnosis EIC (epidermal inclusion cyst)- Primary Sebaceous cyst Pilar cyst of scalp [facility] Diagnosis Pilar cyst of scalp- Primary Skin tenderness Disturbance of skin sensation [facility] Diagnosis Scar- Primary Scar condition and fibrosis of skin [facility] noteNo assessment information [facility] Phone: Evaluation note* Diagnosis Onset [...] Hypertension chronic PCOS (polycystic ovarian syndrome) chronic [facility] Work Phone: Evaluation note* Diagnosis Onset [...] Hypertension chronic PCOS (polycystic ovarian syndrome) resolved [facility] Work Phone: Evaluation note* Diagnosis Onset [...] Hypertension chronic PCOS (polycystic ovarian syndrome) resolved [facility] Work Phone: Evaluation note* Diagnosis Onset [...] acute Supervision of high-risk acute Hypertension chronic [facility] Work Phone: Evaluation note* Diagnosis Onset [...] acute Supervision of high-risk acute Hypertension chronic [facility] Work Phone: Evaluation note* Diagnosis Onset [...] acute UTI (urinary tract infection) during acute [facility] Work Phone: Evaluation note* Diagnosis Onset [...] (urinary tract infection) during acute Hypertension chronic [facility] Work Phone: Evaluation note* Diagnosis Onset [...] (urinary tract infection) during acute Hypertension chronic [facility] Work Phone: Evaluation note* Diagnosis Onset [...] resolved UTI (urinary tract infection) during resolved [facility] Work Phone: Hospital Discharge instructionsAmbulatory Orders* Nutrition Referral Location: None Selected [facility] Work Phone: Progress note Author Lucille Gaytan [facility] June 18, 2023 8:18pm Note Date/Time June 18, 2023 8:13 pm [facility] Medical Records Department [address] [place] [address] OB Triage Progress Note 06/18/232010 MR#: [id number] Acct: [id number] Name: SHAWNANANCY KRAMERELL Rep #:[id number] : 1990 32 From: Lucille Gaytan CNM PCP: Care Physician,No Primary Status :REG CLI Y DOS: Location: [place] [address] Progress Notes Date of Service: 06/18/23 Progress Note: Patient presents for triage evaluation secondary to elevated bps at home and visual changes FHT: 140 Moderate variability reactive no decelerations category I tracing [place]a: irregular Contractions Assessment and plan: Normal Pre [...] pH 7.0 (5.0 - 8.0) Ur Specific [employer] 1.010 (1.002-1.030) Urine Protein Negative (Negative) mg/dl [...] Multi Select Codes Urinary/Genital Urinary/Genital CPT Codes: 85182-70 non-stress test Interp Assessment & Plan (1) [...] by Lucille bustillo CNM> Date _ Lucille Gaytan CNM Cosigner Signature (if applicable): Date CC: ALVINO Gaytan; No Primary Care Physician ~ Signed [facility] Work Phone: Reason for referral (narrative)No reason for referral information availableWMem[facility] Work Phone: Assessments Diagnosis Allergic dermatitis of upper and lower lids of both eyes - Primary Diagnosis Acute vaginitis - Primary Unspecified vaginitis and vulvovaginitis Diagnosis Sinusitis, unspecified chronicity, unspecified location- Primary Diagnosis S/P primary low transverse delivery, without mention of indication, unspecified as to episode of care Preeclampsia, third trimester Instructions * Patient Instructions - Samantha Watson CNP - 09/17/2017 8:06 PM EDT Formatting of this note may be different from the original. Candidiasis: Care Instructions Your Care Instructions Candidiasis (say fow-bwj-EV-uh-jennifer) is a yeast infection. Yeast normally lives [...] Log into your personal health record on https://Infoni[employer] Groupt.Checkr and enter N733 in the Education box to learn more about Candidiasis: Care Instructions. Current as of: December 14, 2016 Content Version: 11.6 3308-1445 [employer]. Care instructions adapted under license by your healthcare professional. If you have questions about a medical condition or this instruction, always ask your healthcare professional. [employer] disclaims any warranty or liability for your use of this information. in this encounter* Patient Instructions* Sabino Milton, KRAIG - 01/13/2019 9:34 AM EST Plan: [...] care for yourself at home? Take an ajag-pvi-etlqqqh pain medicine, such as acetaminophen (Tylenol), ibuprofen (Advil, Motrin),or naproxen (Aleve). Read and follow all instructions on the label. If the doctor prescribed antibiotics, take them as directed. Do not stop taking them just because you feel better. You need to take the full course of antibiotics. Be careful when taking xnrp-rny-asmgodn cold or flu medicines and Tylenol at [...] Log into your personal health record on https://[employer].Checkr and enter I933 in the Education box to learn more about Sinusitis: Care Instructions. Current as of: December 29, 2017 Content Version: 12.20055515-0940 [employer]. Care instructions adapted under license by your healthcare professional. If you have questions about a medical condition or this instruction, always ask your healthcare professional. [employer] disclaims any warranty or liability for your use of this information. documented in this encounter Summary Purpose Family History Relationship Condition Age at Onset Recorded Date/T [...] Unknown Gastroesophageal reflux disease Unknown Advance Directives Documents on File Type Date Recorded Patient Float Remover Expl anation Advance Directives and Living Will Latest Code Status on File Code Status Date Activated Date Inactivated Comments Full Code 01/17/2020 2:30 PM Full Code 01/17/2020 8:30 AM 01/17/2020 2:30 PM Full Code 01/14/2020 5:53 PM 01/17/2020 8:30 AM Advance Directive Response Recorded Date/ Time Name of Medical Power of Dental Office Manager robin matos July 18, 2023 10:19am Living Will Yes July 18, 2023 10 :19am Power of Dental Office Manager Yes July 18, 2023 10:19am Advance Directive Response Recorded Date/ Time Do you have a Healthcare Power of Dental Office Manager? No July 22, 2024 9:53am History of Present Illness * Sabino Milton CNP - 01/13/2019 9:24 AM EST PATIENT NAME: Nancy Fun [facility] [address] [place] [address], [address] [facility] [id number] : 1990 DATE OF VISIT: 01/13/2019 #: [id number] PROVIDER: Sabino Milton CNP Chief Complaint [...] file Gets together: Not on file Attends restoration service: Not on file Active member of [...] - Doing well, VSS - Female at [facility] - Contraception: Per private attending [...] with more than 50% of the total asyh-kp-drzz time of the visit in counseling/coordination of care. * Harriett Soto RN - 01/19/2020 7:[address] Garcia notified about bp of 137/92 and states to order 200mg labetalol 3 times a day * Harriett Soto RN - 01/19/2020 6:15 PM EST Pt back to unit * Harriett Soto RN - 01/19/2020 1:30 PM EST Pt to kids to visit infant * Harriett Soto RN - 01/19/2020 11:45 [...] - Doing well, VSS - Female at [facility] - Contraception: Per private attending [...] controlled yes. Vital Signs: Vitals: 01/17/20 1741 01/17/20 2006 01/17/20 2328 01/18/20 0348 BP: 127/83 124/85 123/77 [...] BG stable Provider's Name: MD Neymar Aldana, 01/18/2020, 6:16 AM Attending Supervising Physician's Attestation Statement I performed a history and physical examination on the patient and discussed the management with theresident physician. I reviewed and agree with the findings and plan as documented in the note. Pt meeting postoperative milestones. Pain controlled. [facility] palate, concern for CHD. Okay for [facility] having [facility]. Preeclampsia precautions reviewed I spent 15 minutes in the visit, with more than 50% of the total acmg-lf-keex time of the visit in counseling/coordination of care. * Margaux Hidalgo IBCLC - 01/17/2020 4:45 PM EST Pt pumping with hospital ameda pump upon entering the room. This is the patient's first baby. Baby was born at 37 weeks and [facility]. Pt is pumping at 57 suction and denies pain. Discussedpump settings and enc to lower, especially if any discomfort, redness or tissue damage. Reviewed and shown pump cleaning. Pt doesn't have a pump for home use , but did some research on medela pumps. Discussed how to obtain pump through insurance, pt calling [facility] tomorrow. Discussed ekvin collection, labeling and transport to nicu. Pt is concerned she is not pumping any milk yet, discussed colostrum and normal volumes and variations the first day and beyond. Denies further questions or needs. Informed of support and how to contact. Verbalizes understanding. * Juana Lugo RD, LD - 01/17/2020 3:47 PM EST Comprehensive Nutrition Assessment Type and Reason for Visit: Initial(office technician referral for HTN) Nutrition Assessment: pt admitted for prepreeclampsia in the third trimester, pt is at 37w0d, pt underwent this morning, per MD pt is currently ordered a General Diet, if sodium restriction is desired in diet order to promote blood pressure control that can be added, will assign patient to a Level 1 and refer back to the office technician for continued monitoring during admit, dietitianis available as needed per re-consult Current Nutrition Therapies: DIET GENERAL; Nutrition Interventions: Food and/or Nutrient Delivery: Continue Current Diet Coordination of Nutrition Care: Continue to monitor while inpatient(sign off to office technician) Contact: pager x [phone] * Joce Adler DO - 01/17/2020 7:47 AM EST BSUS performed this AM. Fetus still breech, maternal R with anterior placenta. * Mary Loredo DO - 01/17/2020 6:31 AM EST Maternal Medicine Service Resident Progress Note 01/17/2020 6:31 AM 01/14/2020 Hospital Day: 4 Nancy Shawna, 29 y.o. 37w0d Patient has been seen [...] Dose lactated ringers infusion Intravenous Continuous Eze Palmer DO 100 mL/hr at 01/16/20 2358 cetirizine (ZYRTEC) tablet 10 mg 10 mg [...] MD 1 tablet at 01/15/20 0815 Assessment/Plan: Nacny Matos is a 29 y.o. female 37w0d [...] - low risk cfDNA - refer to [facility] plan malpresentation - breech on 01/13 - [...] 12 mg 12 mg Intramuscular Q24H Eze Marifer Lamclaire, DO 12 mg at 01/15/20 1800 [START ON 01/17/2020] lactated ringers infusion Intravenous Continuous Eze C Lamari, DO cetirizine (ZYRTEC) tablet 10 mg 10 [...] nursing Bishop Molina MD * Eze Palmer, DO - 01/15/2020 5:48 AM EST Maternal Medicine Service Resident Progress Note 01/15/2020 5:48 AM 01/14/2020 Hospital Day: 2 Nancy Fun, 29 y.o. 36w5d Patient has been seen [...] face of IUGR and anomalies. She and dangeloband were both at the bedside and do [...] with everything related tothis . I offered Farm Mechanic services and they declined today and will [...] complaint as above. Pt sent from the [facility] office for severe range BP'stoday and [...] Information for the patient's : Edouard Matos [[id number]] female Weight: 4 lb 3 oz (1.9 kg) Apgars: Information for the patient's : Edouard Matos [[id number]] One Minute : 8 Five Minute : 9 Course: Uncomplicated : Live female , at [facility] NICU Blood Type/Rh: A POS [...] as 8 weeks after delivery. Bleeding may parts picker and then decrease again around 7-10 [...] of harming yourself or your . If will not stop crying, contact another adult for help or place in their crib on their back and take a break. NEVER shake your infant. WOUND CARE For Vaginal Delivery: ? Shower [...] hand express some milk so that the can latch on more easily or ease [...] avoid constipation you may take a mild rzdo-khm-oibttzh stool softener (such as colace) as recommended [...] positive or a Person Under Investigation (PUI) Phnnqq-jd-zclqk transmission of COVID-19 during is unlikely, but after a baby is susceptible to zkeepp-th-sjnxdf spread. ? After your baby is born, [...] clean your hands with an alcohol-based hand second floor operator that contains at least 60% alcohol. Clean your hands often ? Wash your hands often with soap and water for at least 20 seconds, especially after blowing your nose, coughing, or sneezing; going to the bathroom; and before eating or preparing food. If soap andwater are not readily available, use an alcohol-based hand second floor operator with at least 60% alcohol, covering all [...] healthcare provider to call the local or [facility] health department. Persons who are placed under active monitoring or facilitated self- monitoring should follow instructions provided by their local health department or occupational health professionals, as appropriate. When working with your [facility] health department check their available [...] isolation precautions should be made on a raam-xg-rpup basis, in consultation with healthcare providers and [facility] health departments. Information on COVID-19 for [...] respiratory tract signs and symptoms. Ways to [place] with Anxiety & Stress ? It is [...] an illness that was first found in [facility], in February 2019. It has since spread [...] seen in people before. This virus spreads lggwyb-pu-vferku through droplets from coughing and sneezing. It [...] water aren't available, use an alcohol-based hand second floor operator. Call 911 anytime you think you may [...] of: June 10, 2019 Content Version: 12. [employer]. Care instructions adapted under license by your healthcare professional. If you have questions about a medical condition or this instruction, always ask your healthcare professional. [employer] disclaims any warranty or liability for your use of this information. General Recommendations for Routine Cleaning and Disinfection of Households Community members can practice routine cleaning of frequently touched surfaces (for example: tables, doorknobs, light switches, handles, desks, toilets, faucets, sinks) with household juvenile detention officer and EPA-registered disinfectants that are appropriate for [...] appropriate. These supplies include tissues, paper towels, juvenile detention officer and EPA-registered disinfectants (see list link at [...] be used for other purposes. Consult the yarn skeins examiner's instructions for cleaning and disinfection products used. [...] used if appropriate for the surface. Follow yarn skeins examiner's instructions for application and proper ventilation. Check [...] o Products with EPA-approved emerging viral pathogens [facility] iconexternal icon are expected to be effective against COVID-19 based on data for harder to kill viruses. Follow the yarn skeins examiner's instructions for all cleaning and disinfection products (e.g., concentration, application method and contact time, etc.). Soft (porous) surfaces such as carpeted floor, rugs, and drapes Remove visible contamination if present and clean with appropriate juvenile detention officer indicated for use on these surfaces. After cleaning: Launder items as appropriate in accordance with the yarn skeins examiner's instructions. If possible, launder items using the [...] items as appropriate in accordance with the yarn skeins examiner's instructions. If possible, launder items using the warmest appropriate water setting for the items and dry items completely. Dirtylaundry from an ill person can be washed with other people's items. o Clean and disinfect clothes hampers according to guidance above for surfaces. If possible, consider placing a bag valver that is either disposable (can be thrown away) or can be laundered. CDC has a list of EPA approved cleaning products on their website - https://www.cdc.gov/coronavirus/ 2019-ncov/community/home/cleaning-disinfection.html https://www.[employer]/Kdupi-Xcbmcyvqowg-Fbixpmyf-Products-List.pdf documented in this encounter Reason for Referral Specialty Diagnoses / Procedures Referred By Chico rizo Referred To Contact Dermatology Diagnoses Scalp cyst Juani Husain, CLASSROOM INSTRUCTIONAL AIDE [address] [place] [address] [facility] [place] [address] [place] [address] Referral ID Status Reason Start Date Expiration Date V isits Requested Visits Authorized [id number] Authorized 04/16/2022 04/16/2023 1 1 Chief Complaint [...] ACUTE MED FU-SIDNEY PT WANTS TO RE-EST [facility] April 10, 2024 10:25am L EAR PAIN/SINUS PRESSURE/DIZZINESS Oj h 2024 4:24pm vaginal bleeding July 22, 2024 9:36a m Reason for Visit Admit Date Obesity (BMI 30-39.9) April 10, 2024 10:25am PCOS (polycystic ovarian syndrome) Janua ry 2024 10:25am Hypertension April 10, 2024 1 0:25am Chief Complaint Admit Date ACUTE MED FU-SIDNEY PT WANTS TO RE-EST [facility] April 10, 2024 10:25am L EAR PAIN/SINUS PRESSURE/DIZZINESS Oj h 2024 4:24pm vaginal bleeding July 22, 2024 9:36a m ER FU- AUB *copay $30 August 07, 2024 2:0 5pm Chief Complaint Admit Date L EAR PAIN/SINUS PRESSURE/DIZZINESS Oj h 2024 4:24pm vaginal bleeding July 22, 2024 9:36a m ER FU- AUB *copay $30 August 07, 2024 2:0 5pm Annual (WOOD TURNING LATHE OPERATOR) September 02, 2024 8:22 am Reason for [...] $30 August 07, 2024 2:0 5pm Annual (WOOD TURNING LATHE OPERATOR) September 02, 2024 8:22 am 2 ORDERING [...] $30 August 07, 2024 2:0 5pm Annual (WOOD TURNING LATHE OPERATOR) September 02, 2024 8:22 am 2 ORDERING 'S E-ORDER September 03, 2024 8:37am SEM MANAGER YULISSA MENDOZA-SIDNEY PT September 10, 2024 8:55 am Reason [...] $30 August 07, 2024 2:0 5pm Annual (WOOD TURNING LATHE OPERATOR) September 02, 2024 8:22 am 2 ORDERING 'Iwona E-ORDER September 03, 2024 8:37am SEM MANAGER YULISSA MYLES PT September 10, 2024 8:55 am EORDERS [...] 2024 8:55am Establishing care with new doctorrene for September 10, 2024 8:55am Stress at home September 10, 2024 8:55a m Essential hypertension September 10, 2024 8: 55am Morbid obesity with body mas s index (BMI) of 45.0 to 49.9 in adult September 10, 2024 8:55am Chief Complaint Admit Date Annual (WOOD TURNING LATHE OPERATOR) September 02, 2024 8:22 am 2 ORDERING 'Iwona E-ORDER September 03, 2024 8:37am SEM MANAGER YULISSA MYLES PT September 10, 2024 8:55 am EORDERS September 12, 2024 7:58a m AUB on progesterone *COPAY $30 December 112024 7:53am Reason for Visit Admit Date Abnormal uterine bleeding September 02 8:22am Obesity [...] 10, 2024 8:55am Chief Complaint Admit Date SEM MANAGER EST CARE-SIDNEY PT September 10, 2024 8:55 am EORDERS September 12, 2024 7:58a m AUB on progesterone *COPAY $30 December 112024 7:53am Reason for Visit Admit Date Abnormal uterine bleeding September 10, 2024 8:55am [...] 49.9 in adult September 10, 2024 8:55am Abnormal uterine bleeding December 11, 025 7:53am Menorrhagia December 11, 2024 7: 53am Obesity (BMI 30-39.9) December 11, 2024 7:53am PCOS (polycystic ovarian syndrome) Octob 2024 7:53am Hypertension December 11, 2024 7: 53am Additional Source Comments INFORMATION SOURCE (unrecogn ized section and content) DATE CREATED AUTHOR 06/18/2018 [facility] DATE CREATED AUTHOR AUTHOR'S ORGANIZ ATION 01/27/2020 [facility] CREATED AUTHOR AUTHOR'S ORGANIZ ATION 04/23/2021 [facility] DATE CREATED AUTHOR AUTHOR'S ORGANIZ ATION [facility] DATE CREATED AUTHOR AUTHOR'S ORGANIZ ATION 05/09/2022 [facility] DATE CREATED AUTHOR AUTHOR'S ORGANIZ ATION 07/25/2022 [facility] DATE CREATED AUTHOR AUTHOR'S ORGANIZ ATION 10/02/2023 [facility] DATE CREATED AUTHOR AUTHOR'S ORGANIZ ATION 01/05/[address] [place] [address] Reason for Visit (unrecogniz ed section and [...] Contact Dermatology Diagnoses Scalp cyst Juani Husain, CLASSROOM INSTRUCTIONAL AIDE [address] [place] [address] [facility] [place] [address] [place] [address] Referral ID Status Reason Start Date Expiration Date Visits Re quested Visits Authorized [id number] Closed 04/16/2022 04/16/2023 1 1 Reason Onset Date Comments Medication Refill 06/19/2022 Reason Comments Suture / Staple Removal Addendum Note - Sabino Milton CNP - 01/13/2019 9:51 AM EST Miscellaneous Notes (unrecog nized section and content) Addended by: SABINO MILTON on: 01/13/2019 09:51 AM Modules accepted: Orders documented in this encounter Care Teams (unrecognized sec tion and content) 2Nd Pressman Relationship Specialty Start Date End Date Juani Husain CNP PCP - General Nurse Practitioner 05/20/15 2Nd Pressman Relationship Specialty Start Date End Date Juani Husain CNP PCP - General Nurse Practitioner 05/20/15 2Nd Pressman Relationship Specialty Start Date End Date Juani Husain CNP PCP - General Nurse Practitioner 05/20/15 2Nd Pressman Relationship Specialty Start Date End Date LishaJuani calderon CNP PCP - General Nurse Practitioner 05/20/15 2Nd Pressman Relationship Specialty Start Date End Date Juani Husain CNP PCP - General Nurse Practitioner 05/20/15 2Nd Pressman Relationship Specialty Start Date End Date Juani Husain CNP PCP - General Nurse Practitioner 05/20/15 Juani Husain CNP [address] [place] [address] PCP - VINOD Attributed Provider - MMO Commercial 06/10/19 03/10/50 2Nd Pressman Relationship Specialty Start Date End Date LishaJuani calderon CNP PCP - General Nurse Practitioner 05/20/15 Juani Husain CNP [address] [place] [address] PCP - VINOD Attributed Provider - MMO Commercial 06/10/19 03/10/50 2Nd Pressman Relationship Specialty Start Date End Date Juani Husain CNP PCP - General Nurse Practitioner 05/20/15 Juani Husain, KRAIG [address] [place] [address] PCP - VINOD Attributed Provider - MMO Commercial 06/10/19 03/10/50 2Nd Pressman Relationship Specialty Start Date End Date Juani Husain CNP PCP - General Nurse Practitioner 05/20/15 Juani Husain CNP [address] [place] [id number] PCP - VINOD Attributed Provider - MMO Commercial 06/10/19 03/10/50 2Nd Pressman Relationship Specialty Start Date End Date Juani Husain CNP PCP - General Nurse Practitioner 05/20/15 Juani Husain CNP [address] [place] [id number] PCP - VINOD Attributed Provider - MMO Commercial 06/10/19 03/10/50 2Nd Pressman Relationship Specialty Start Date End Date Juani Husain CNP PCP - General Nurse Practitioner 05/20/15 Juani Husain CNP [address] [place] [address] PCP - VINOD Attributed Provider - MMO [...] Provider, Refer ring Provider Active Coco Moore SEM MANAGER, SEM MANAGER-C Attending Provider Active Team Status: Inactive Member Role Status Dates No Primary Care Physician Primary Care Provider Active Coco Moore SEM MANAGER, SEM MANAGER-C Attending Provider, Referring Provider Active Team Status: [...] Status: Inactive Member Role Status Dates Sidney Jakcson NP-C Referring Provider Active S tart: April 10, 2024 End: April 10, 2024 CIERA Garcia Attending Provider Active St art: April 10, [...] September 12, 2024 End: September 12, 2024 Team Status: Active Member Role/Relationship Status Dates Dr. Marivel Danielson MD Primary care physician Active Team Status: Inactive Member Role/Relationship Status Dates SANFORD AlanizC Referring Provider Active S tart: September 02, 2024 End: September 02, 2024 Dr. Crissy Mcneal DO Attending physician Acti ve Start: September 02, 2024 End: September 02, 2024 Dr. Marivel Danielson MD Primary care physician Active Start: September 02, 2024 End: September 02, 2024 Team Status: Inactive Member Role/Relationship Status Dates Dr. Marivel Danielson MD Primary care physician Active Start: September 03, 2024 End: September 03, 2024 Dr. Crissy Mcneal DO Attending physician Acti ve Start: September 03, 2024 End: September 03, 2024 Dr. Crissy Mcneal DO Referring Provider Activ e Start: September 03, 2024 End: September 03, 2024 Jesse VANG, PA Nurse Practitioner Active St art: September 03, 2024 End: September 03, 2024 Team Status: Inactive Member Role/Relationship Status Dates Dr. Marivel Danielson MD Primary care physician Active Start: September 10, 2024 End: September 10, 2024 Dr. Marivel Danielson MD Attending physician Active Start: September 10, 2024 End: September 10, 2024 Dr. Marivel Danielson MD Referring Provider Active Start: September 10, 2024 End: September 10, 2024 Team Status: Inactive Member Role/Relationship Status Dates Dr. Marivel Danielson MD Primary care physician Active Start: September 12, 2024 End: September 12, 2024 Dr. Marivel Danielson MD Attending physician Active Start: September 12, 2024 End: September 12, 2024 Dr. Marivel Danielson MD Referring Provider Active Start: September 12, 2024 End: September 12, 2024 Team Status: Inactive Member Role/Relationship Status Dates Dr. Marivel Danielson MD Primary care physician Active Start: December 11, 2024 End: December 11, 2024 Dr. Marivel Danielson MD Referring Provider Active Start: December 11, 2024 End: December 11, 2024 Dr. Crissy Mcneal DO Attending physician Acti ve Start: December 11, 2024 End: December 11, 2024 Team Status: Inactive Member Role/Relationship Status Dates Dr. Marivel Danielson MD Primary care physician Active Start: September 10, 2024 End: September 10, 2024 Dr. Marivel Danielson MD Attending physician Active Start: September 10, 2024 End: September 10, 2024 Dr. Marivel Danielson MD Referring Provider Active Start: September 10, 2024 End: September 10, 2024 Team Status: Inactive Member Role/Relationship Status Dates Dr. Marivel Danielson MD Primary care physician Active Start: September 12, 2024 End: September 12, 2024 Dr. Marivel Danielson MD Attending physician Active Start: September 12, 2024 End: September 12, 2024 Dr. Marivel Danielson MD Referring Provider Active Start: September 12, 2024 End: September 12, 2024 Team Status: Inactive Member Role/Relationship Status Dates Dr. Marivel Danielson MD Primary care physician Active Start: December 11, 2024 End: December 11, 2024 Dr. Marivel Danielson MD Referring Provider Active Start: December 11, 2024 End: December 11, 2024 Dr. Crissy Mcneal DO Attending physician Acti ve Start: December 11, 2024 End: December 11, 2024 Team Status: Inactive Member Role/Relationship Status Dates Dr. Marivel Danielson MD Primary care physician Active Start: December 11, 2024 End: December 11, 2024 Dr. Crissy Mcneal DO Attending physician Acti ve Start: December 11, 2024 End: December 11, 2024 Goals (unrecognized section and content) Type Care Experience SVDLabor Preferences -labor support person: Gunneradrian management options preferred: prefers limited interventioncut cord/dad catch: cordbreastfeeding: yesPP control planned: []discussed possible routes of delivery and associated risks: []special requests: [] Care Experience plans repeat c/s - 3 8 weeks FOR RECORDS PERTAINING TO PATIENTS WHO ARE [...] BE BASED ON THE PRIMARY CLINICAL RECORDS. [facility] [employer] [facility]. provides no warranty or guarantee of the accuracy or completeness of information in this document.
[2025-03-02] MEDS: Lactated Ringers 1,000 ML 40 ML IV (06:16)
[2025-03-02] MEDS: Scopolamine 1mg/72hr Patch 1 PATCH TD (06:24)
[2025-03-02] MEDS: Magnesium 1 GM over 15 mins IV (06:26)
--- NOTE | 2025-03-02 06:59 | DCINST_ITS ---
Discharge Instructions DC O2, CPAP, BIPAP needs Home O2 Discharge instructions: No Dressing / Incision Discharge Activity: May Shower May resume sexual activity in: 8 weeks Weight Bearing Status: Full weight bearing Lifting Restrictions: 10 pounds for 2 weeks Dressing / Incision Call your doctor if your incision/area has: Continuous Slow Oozing, Sudden I ncreased Bleeding, Increased Pain/ Swelling, Increased Redness and Foul Smelling Discharge Call your doctor if you observe: Fever of 101 or Higher, Using more than 1 pad per hour, Shortness of breath, Chest pain and Uncontrolled pain Suture Line Care: Avoid Pulling/Pushing and Avoid Pinching/Bending Remove Dressing in: 1 week (if present) Cleanse incision/area with: Soap & Water and Keep Dressing Clean & Dry Follow Up Care Please Follow Up With: Crissy Mcneal DO When: Call to make an appointment with your doctor for a postop visit in 2 and 6 weeks Test Results: Test results from this visit will be discussed in further detail at your follow- up appointment, if applicable. Discharge Plan Admission Primary Reason for Your Visit: hysterectomy Attending Provider: Crissy Mcneal Primary Care Provider: Davina Lei Instructions Print Language: Armenian Discharge Orders/Prescriptions Prescriptions: New tramadol 50 mg tablet 50 mg PO Q6H PRN (Reason: pain) Qty: 20 0RF ketorolac 10 mg tablet 10 mg PO Q8H PRN (Reason: pain) 5 Days Qty: 30 0RF Continued cetirizine [Zyrtec] 10 mg tablet 10 mg PO QHS labetalol 100 mg tablet 100 mg PO BID Qty: 180 1RF metformin 500 mg tablet extended release 24 hr 500 mg PO BID 90 Days Qty: 180 4RF Discontinued megestrol 20 mg tablet 20 mg PO DAILY PRN (Reason: bleeding) medroxyprogesterone 5 mg tablet 5 mg PO QDAY 90 Days Qty: 90 4RF Disposition Disposition (needs filled in before D/C Order can be placed): Home, Self Care
--- NOTE | 2025-03-02 06:59 | HP.PCM_ITS ---
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 Required: No Is patient in pain?: No Allergies Penicillins Allergy (Severe, Verified 02/22/25 16:05) Rash cefdinir (From Omnicef) Allergy (Verified 02/22/25 16:05) Anaphylaxis diazepam (From Valium) Adverse Reaction (Severe, Verified 02/22/25 16:05) Other hydrocodone (From Vicodin) Adverse Reaction (Severe, Verified 02/22/25 16:05) Other erythromycin base Adverse Reaction (Intermediate, Verified 02/22/25 16:05) vomiting Post menopausal: No Patient : No : No PFSH Medical History Panic attack due to post traumatic stress disorder (PTSD) Wears contact lenses Wears glasses Depression Diabetes Non-smoker Anxiety Infertility Hypertension Intertriginous dermatitis associated with moisture Sinusitis Abnormal ultrasound Cleft lip and palate, , affecting care of mother, antepartum Skin cyst PCOS (polycystic ovarian syndrome) Surgical History History of H/O local excision of skin lesion H/O tubal ligation History of wisdom tooth extraction, class IV edentulism H/O nasal septoplasty Family History Father Hypertension Celiac disease Mother Prediabetes Grandfather Prostate cancer Cancer melanoma Grandmother TIA (transient ischemic attack) Grandfather Heart disease Myocardial infarction Grandmother Fibromyalgia Rheumatoid arthritis Aunt HELLP (hemolytic anemia/elev liver enzymes/low platelets in ) Unknown Pre-eclampsia Sister Bleeding disorder, Onset Age: 21 essential thrombocythemia (blood cancer) Asthma Brother Asthma Daughter Tracheo-esophageal fistula Dermatitis Monoallelic mutation of GDF1 gene GERD (gastroesophageal reflux disease) Social History adopted: No household members: spouse and children housing: apartment number of children: 2 current occupational status: employed 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 pets and animals: Yes (2) pets and animals: dog(s) history of recent travel: No sexually active: Yes Smoking Status: Never smoker second hand exposure: No alcohol intake: never substance use type: does not use diet: low salt caffeine: Yes (2-4) Type: coffee frequency: 1-2 times per week nick/latter day: Mandaen seatbelt use: always do you feel safe at home: Yes additional social history: - Robin (ODOT) HPI TRH Cysto Details: Nancy Roberson is a 34-year-old female with a history of tubal ligation and with a history of PCOS and hypertension presenting for evaluation of abnormal uterine bleeding and weight management. Abnormal Uterine Bleeding - Reports a history of heavy menstrual bleeding, which has improved since starting progesterone three months ago. - Initially, the first month on progesterone resulted in no period, only cramping and period symptoms. - During the second month, she began bleeding four days before stopping the medication, which continued for 11 days. - After consulting her healthcare provider, she was advised to increase her progesterone dosage to three pills for three days, followed by two pills for three days, and then back to one pill. This adjustment stopped the bleeding. - Currently on a continuous regimen of one progesterone pill per day. - Notes that bleeding episodes are exacerbated by stress, mentioning a particularly heavy bleeding episode following her grandfather's passing. - Expresses concern about the impact of bleeding on her ability to care for her daughter, who has multiple medical complexities and recently underwent surgery. - Denies interest in IUD placement. - Expresses interest in discussing hysterectomy as a potential treatment option. Weight Management - Currently taking metformin for weight management and insulin resistance. - Denies interest in GLP-1 receptor agonists for weight loss due to concerns about potential side effects and insufficient research. - Reports a history of hypertension, currently managed with a low dose of Lisinopril 100 mg twice daily. - Notes that her blood pressure increases when taking estrogen-containing medications. ROS: Constitutional: (+) fatigue Genitourinary: (+) heavy menstrual bleeding, (+) prolonged menstrual bleeding Diagnostics: FINDINGS: The uterus measures 8.1 x 5.2 x 3.9 cm and appears anteverted, and retroflexed. There is no uterine fibroid or mass. The endometrium measures 0.5 cm. Nabothian cysts are noted. The right ovary measures 3.4 x 3.3 x 2.8 cm, volume = 16 cc. The left ovary measures 3.6 x 4.2 x 3.2 cm, volume = 25 cc. There are greater than 10 subcentimeter follicles visible on the left ovary. There is no adnexal mass or free fluid. US/Transvaginal Non- IMPRESSION: The ovaries meet the criteria for polycystic ovary syndrome. The endometrium measures 0.5 cm. History 2 Elective abortions Hx Para 2 Spontaneous abortions Hx # Term Pregnancies 2 Ectopic pregnancies Hx # Pregnancies Multiple births # of living children 2 Past Pregnancies Del. Date Name GA/Weeks Outcome Route Bth Weight Infant Gen Labor Lgth Anesthesia Del Locatn Provider FOB 01/17/20 Fahad 37 live - full term 4lbs 3oz Female Seraa Robin 07/20/23 Wilbur 38 live - full term 6lbs 15oz Male [facility] Delivery Date: 01/17/20 Last Updated by: Mary Blackburn Diabetes, Pre-eclampsia, Breech ROS Const ROS Unobtainable: All systems reviewed & are unremarkable except as noted in H Resp Resp: Reports system reviewed and no additional complaints, except as documented; Denies cough GI GI: Reports as per HPI Psych Psych: Reports system reviewed and no additional complaints, except as documented Exam Const General: cooperative, healthy appearing, comfortable and no acute distress Resp Effort & Inspection: normal respiratory effort Skin General: no rashes or lesions noted Psych Appearance: grossly normal Speech and Movement: speech and movement normal Coding Level of Care Code Off vis,est,level 4 Diagnoses Abnormal uterine bleeding N93.9 Menorrhagia N92.0 Obesity (BMI 30-39.9) E66.9 PCOS (polycystic ovarian syndrome) E28.2 Primary hypertension I10 Hypertension type: primary hypertension Assessment and Plan Assessment and Plan (1) Abnormal uterine bleeding: Status: Acute (2) Menorrhagia: Status: Acute (3) Obesity (BMI 30-39.9): Status: Acute (4) PCOS (polycystic ovarian syndrome): Status: Acute Comment: ON METFORMIN (5) Hypertension: Status: Chronic Qualifiers: Hypertension type: primary hypertension Qualified Code(s): I10 - Essential (primary) hypertension Comment: CONTROLLED WITH MED Plan # Encounter for other preprocedural examination (Z01.818) - Preoperative risk assessment completed for total robotic hysterectomy, bilateral salpingectomy, and cystoscopy. - Surgery scheduled for 7:30 AM; patient to arrive at 6:00 AM. - Discussed surgical plan: removal of uterus, cervix, and fallopian tubes; ovaries to remain unless intraoperative findings necessitate oophorectomy. - Reviewed risks: bleeding, infection, injury to surrounding organs (including bladder), and rare need for blood transfusion; patient provided informed consent. - Discussed intraoperative cystoscopy and tissue examination for malignancy or adenomyosis. - Preoperative instructions provided: use of antibacterial body wash night before and morning of surgery, change to clean sheets, and use of pre-surgery electrolyte drinks. - Advised NPO status: no solid food 8 hours prior to surgery, clear liquids allowed up to 4 hours before surgery. - Intraoperative antibiotics to include Flagyl and ceftriaxone. - Discussed postoperative pain management: start Toradol for moderate pain, with tramadol available for severe pain; avoid Motrin, may use Tylenol. - Advised minimal activity for first 2 weeks post-op, no driving while taking tramadol, and no sexual activity for 8 weeks. - Discussed possibility of immediate menopause and need for hormone replacement therapy if bilateral oophorectomy is required; estrogen patch preferred due to hypertension. - Patient to complete preoperative labs and test. - Follow-up scheduled for 2 weeks postoperatively. # Excessive and frequent menstruation with irregular cycle (N92.1) - Amenorrhea achieved with daily medication as prescribed. - Hysterectomy planned to address heavy and irregular menstrual bleeding. - Discussed reduction in uterine cancer risk post-hysterectomy. # Essential (primary) hypertension (I10) - Well-controlled on labetalol; recent BP 120/82. - Discussed preference for transdermal estrogen patch if HRT is needed postoperatively to minimize impact on blood pressure. Patient Instructions: - Continue current medication regimen. - Scheduled total robotic hysterectomy, bilateral salpingectomy, and cystoscopy at 0730; patient to arrive at 0600. - Discussed potential risks of surgery, including bleeding, infection, and damage to surrounding tissue. - Discussed possibility of hormone replacement therapy if ovaries need to be removed. - Prescribed Toradol for pain management post-surgery; Tramadol as a backup for severe pain. - Patient to use prescribed body wash night before and morning of surgery to reduce infection risk. - Patient to drink pre-surgery electrolyte drink as instructed. - Patient to avoid eating for 8 hours before surgery; may drink clear liquids up to 4 hours before surgery. - Patient to perform pre-surgery blood work at the main lab, open until 1800. - Advised patient to rest and avoid strenuous activity for the first two weeks post-surgery. - Patient to follow up in two weeks post-op.
--- NOTE | 2025-03-02 07:03 | PRE.ANES_ITS ---
ASA Classification* ASA Classification ASA Classification: 3 Assessment & Plan Anesthesia* Anesthesia Assessment Anesthesia Assessment: Discussed sedation and/or anesthesia options, risks, benefits, and alternatives with patient/parents/legal guardian/POA. Questions invited. The patient/parents/legal guardian/POA seems to understand and agrees to proceed with anesthesia plan. Reviewed the physical assessment, medical history, allergy history and patient home medications list prior to surgery/procedure/anesthetic and documented any changes. Performed airway and anesthesia risk assessments. Anesthesia Type Anesthesia Type: General History Source History Obtained from:: Patient and Chart Anesthesia Focused Assessment* Temperature: 98 F Pulse Rate: 82 Blood Pressure: 134/94 Respiratory Rate: 16 Pulse Ox: 100 Oxygen Delivery Method: Room Air Airway Assessment Mouth opens: >3 cm Mallampati Score: IV Teeth Condition: Caps/Crowns (Right upper molar has a crown.) Neck Range of motion (ROM): Limited ROM (Slight Decrease) Labs Anesthesia Preop lab: CBC WBC, (4.4-11.0) 10.5 K/mm3 02/22/25, 16:59 RBC, (4.2-5.4) 5.43 M/mm3 H 02/22/25, 16:59 Hgb, (12.0-15.0) 14.8 g/dL 02/22/25, 16:59 Hct, (37-47) 43.4 % 02/22/25, 16:59 Plt Count, (150-450) 302 K/mm3 02/22/25, 16:59 CHEMISTRY Potassium, (3.3-5.1) 4.2 mmol/L 09/12/24, 08:06 Sodium, (133-145) 137 mmol/L 09/12/24, 08:06 Magnesium, (1.5-2.2) 2.2 mg/dL 02/22/25, 16:58 BUN, (4-19) 15 mg/dL 09/12/24, 08:06 Creatinine, (0.70-1.20) 0.69 mg/dL L 09/12/24, 08:06 Glucose, (70-99) 122 mg/dL H 09/12/24, 08:06 POC Glucose, (74-106) 96 mg/dL Today, 06:12 TSH, (0.300-4.200) 1.260 uIU/mL 09/12/24, 08:06 COAG HCG, Quant, (<9 non-preg) < 1 mIU/mL 07/22/24, 10:0 0 Pre-Assessment Diagnosis/Proposed Procedure Planned Operative Procedure(s): LAP TOTAL ROBOTIC HYSTERECTOMY CYSTO Anesthesia History Anesthesia History - program professional: Anesthesia History - program professional Hx Hospitalization No 02/16/25 11:11 Any Problems With Anesthesia Yes: SLOW TO AWAKEN/VERY 02/16/25 11:11 DROWSY Cholinesterase deficiency No 02/16/25 11:11 You/Your Family Experience No 02/16/25 11:11 fever (hyperthermia) with Relationship Recent Exposure to Contagious No 03/02/25 06:07 Disease Does patient have nerve No 02/16/25 11:11 stimulator Patient instructed to have device shut off --Does patient have Pacemaker No 03/02/25 06:07 or ICD? When Was Last Pacemaker Check QUESTION #4 FULL TEXT: You/Your Family Experience fever (hyperthermia) with Anesthesia Last Oral Intake Last Oral intake: Last Oral Intake NPO since 03:30 03/02/25 06:07 Meds taken in AM with sips of Yes 03/02/25 06:07 water? Meds patient instructed to take am of surgery Any additional information?: Yes NPO since: 03:30 (Patient took her preop Ensure at 3:30 AM.) Meds taken in AM with sips of water?: Yes Meds patient instructed to take am of surgery: Labetalol PONV PONV - program professional: PONV - program professional Female Yes 02/16/25 11:11 HX of Motion Sickness Yes 02/16/25 11:11 HX of N/V After Surgery No 02/16/25 11:11 Non-Smoker Yes 02/16/25 11:11 Duration of Surgery greater Yes 02/16/25 11:11 than 60 minutes Number of Risk Factors 4 02/16/25 11:11 PONV Score Severe Risk 02/16/25 11:11 Height & Weight Height & Weight: Anesthesia: Height & Weight Height 5 ft 4 in 03/02/25 06:07 Weight: 120 kg 03/02/25 06:07 Body Mass Index (BMI) 45.3 03/02/25 06:07 Respiratory Assessment Respiratory Assessment - program professional: Respiratory Tract Infection Hx - program professional Hx Respiratory Tract Infection No 02/16/25 11:11 STOP Sleep Apnea STOP Sleep Apnea - program professional: STOP Sleep Apnea - program professional Hx Hypertension Yes: CONTROLLED WITH MED 02/16/25 11:11 Hx Sleep Apnea No 02/16/25 11:11 CPAP BIPAP Do you snore loudly (louder No 02/16/25 11:11 than talking or can be heard Do you often feel tired/ Yes 02/16/25 11:11 fatigued/ sleepy during daytime? Has anyone observed you stop No 02/16/25 11:11 breathing during sleep? STOP Results Positive 02/16/25 11:11 QUESTION #5 FULL TEXT : Do you snore loudly (louder than talking or can be heard through closed doors)? Tobacco Use History Tobacco Use History - program professional: Tobacco Use History - program professional Tobacco Use Smoking Status Never smoker 02/16/25 11:11 Hx Tobacco Use No 02/16/25 11:11 Years Smoking Packs Smoked per Day Smoking Cessation Date was within the last 15 years Hx Smoking Cessation Date Hx Smoking Cessation Counseling Hematologic Medial History Hematologic Hx - program professional: Hematologic Medical Hx - documentation specialist Hx of Blood Transfusion No 02/16/25 11:11 Hx of Transfusion in last 3 No 02/16/25 11:11 Months Date of Last Transfusion (if within last 3 months) Ever experience any problems No 02/16/25 11:11 with transfusion(s)? Specify any problems Hx of Preganancy in last 3 No 02/16/25 11:11 Months Nurse Filling Out Transfusion DSCHRIBER 02/16/25 11:11 & Questions: Date: 02/16/25 02/16/25 11:11 Time: 11:14 02/16/25 11:11 Patient unable to answer at this time (ie. confused, unrespo /Reproduction History /Reproductive History - program professional: /Reproductive Hx- program professional Hx Now No 02/16/25 11:11 Gestational Age (in weeks): EDC: Hx Hx Para Hx Section SAB No 02/22/25 16:07 Does the father of the baby or his family experience fever w Father of the baby Malignant Hypertension history comment Active Medications Active Medications: Current Medications Generic Name Dose Route Start Last Admin Trade Name Freq PRN Reason Stop Dose Admin Acetaminophen 1,000 mg 03/02/25 07:30 03/02/25 06:27 Acetaminophen 500 Mg Tablet PO 03/02/25 07:31 1,000 mg PREOP ONE Administration Dexamethasone Sodium Phosphate 8 mg 03/02/25 07:30 Dexamethasone 4 Mg/Ml Vial IV 03/02/25 07:31 INTRAOP ONE Gabapentin 600 mg 03/02/25 07:30 03/02/25 06:27 Gabapentin 600 Mg Tablet PO 03/02/25 07:31 600 mg PREOP ONE Administration Lactated Ringer's 1,000 mls @ 40 mls/hr 03/02/25 07:30 03/02/25 06:16 IV 40 mls/hr .Q25H JW Administration Clindamycin Phosphate 900 mg in 50 mls @ 75 mls/hr 03/02/25 07:30 Cleocin IV 03/02/25 08:09 INTRAOP ONE Gentamicin Sulfate 400 mg/ 60 mls @ 100 mls/hr 03/02/25 07:30 Dextrose IV 03/02/25 08:05 INTRAOP ONE Lactated Ringer's 1,000 mls @ 70 mls/hr 03/02/25 07:30 IV .[id number] JW Magnesium Sulfate 1 gm/ 102 mls @ 408 mls/hr 03/02/25 07:30 03/02/25 06:26 Dextrose IV 03/02/25 07:44 408 mls/hr PREOP ONE Administration Insulin Human Lispro 0 unit 03/02/25 07:30 Insulin Lispro 100 Unit/Ml Insuln.Pen SC 03/02/25 18:00 Q4H PRN PRN BG >/= 180, SEE PROTOCOL Protocol Ondansetron HCl 4 mg 03/02/25 07:30 Ondansetron 4 Mg/2 Ml Vial IV 03/02/25 07:31 INTRAOP ONE Phenazopyridine HCl 190 mg 03/02/25 07:30 03/02/25 06:26 Phenazopyridine 95 Mg Tablet PO 03/02/25 07:31 190 mg PREOP ONE Administration Scopolamine HBr 1 patch 03/02/25 07:30 03/02/25 06:24 Scopolamine 1mg/72hr Patch TD 03/02/25 07:31 1 patch PREOP ONE Administration PFSH Medical History Panic attack due to post traumatic stress disorder (PTSD) Wears contact lenses Wears glasses Depression Diabetes Non-smoker Anxiety Infertility Hypertension Intertriginous dermatitis associated with moisture Sinusitis Abnormal ultrasound Cleft lip and palate, , affecting care of mother, antepartum Skin cyst PCOS (polycystic ovarian syndrome) Home Medications ?Medication ?Instructions ?Recorded ?Last Taken ?Type cetirizine 10 mg tablet (Zyrtec) 10 mg PO QHS allergy symptoms 02/02/20 07/21/24 History metformin 500 mg tablet,extended 500 mg PO BID PCOS 90 days #180 08/07/24 Unknown Rx release 24 hr tabs labetalol 100 mg tablet 100 mg PO BID #180 tabs 06/0203/02/25 03:15 Rx ketorolac 10 mg tablet 10 mg PO Q8H PRN pain 5 days #30 03/02/25 Unknown Rx tabs tramadol 50 mg tablet 50 mg PO Q6H PRN pain #20 ta bs 03/02/25 Unknown Rx Allergy/AdvReac Type Severity Reaction Status Date / Time Penicillins Allergy Severe Rash Verified 02/22/25 16:05 cefdinir (From Omnicef) Allergy Anaphylaxis Verified 02/22/25 16:05 diazepam (From Valium) AdvReac Severe Other Verified 02/22/25 16:05 hydrocodone (From Vicodin) AdvReac Severe Other Verified 02/22/25 16:05 erythromycin base AdvReac Intermediate vomiting Verified 02/22/25 16:05 Family History Father Hypertension Celiac disease Mother Prediabetes Grandfather Prostate cancer Cancer melanoma Grandmother TIA (transient ischemic attack) Grandfather Heart disease Myocardial infarction Grandmother Fibromyalgia Rheumatoid arthritis Aunt HELLP (hemolytic anemia/elev liver enzymes/low platelets in ) Unknown Pre-eclampsia Sister Bleeding disorder, Onset Age: 21 essential thrombocythemia (blood cancer) Asthma Brother Asthma Daughter Tracheo-esophageal fistula Dermatitis Monoallelic mutation of GDF1 gene GERD (gastroesophageal reflux disease) Surgical History History of H/O local excision of skin lesion H/O tubal ligation History of wisdom tooth extraction, class IV edentulism H/O nasal septoplasty Social History adopted: No household members: spouse and children housing: apartment number of children: 2 current occupational status: employed 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
[2025-03-02 07:14] LABS: Hematocrit 40.2 % (37-47); Hemoglobin 14.2 g/dL (12.0-15.0); Mean Corp Hgb Conc 35.3 g/dL (32-36); Mean Corpuscular Volume 80.6 fL (81-99); Mean Platelet Vol. 9.8 fl (6.2-12.0); Platelet Count 253 K/mm3 (150-450); RBC Distribution Width CV 12.6 % (11.6-14.6); RBC Distribution Width SD 36.3 fl (35.1-43.9); Red Blood Count 4.99 M/mm3 (4.2-5.4); White Blood Count 8.8 K/mm3 (4.4-11.0)
[2025-03-02] MEDS: Lactated Ringers 1,000 ML 1000 ML IV (07:27)
[2025-03-02] MEDS: Midazolam 2 MG/2 ML Syringe IV (07:27)
--- NOTE | 2025-03-02 07:30 | HYST_PTH ---
PATIENT: GUILLE MATOS LOC: [facility] [place] U#:[id number] AGE/SX: 34/F ROOM: RE03/02/[address]: Dr. Crissy Mcneal DO : 1990 BED: DIS: 03/02/2025 SPEC #: [id number] RECD: 03/02/25 10:22 STATUS: MARY SONG #: [id number] IRON: 03/02/25 07:[address]: Crissy Mcneal DEPT: SURGICAL PATHOLOGY RECD BY: Marce Del Toro ENTERED: 03/02/25 13:48 SP TYPE: HYSTERECT OTHR DR: Dr. Davina Lei DO Tissues: Uterus, NOS Procedures: Surgery Specimen Level V HEADER OPERATION: ERAS, laparoscopic total robotic hysterectomy, cystoscopy PRE-OP DIAGNOSIS: Abnormal uterine bleeding, menorrhagia, obesity, PCOS TISSUE SUBMITTED: A- Uterus, cervix MICROSCOPIC DIAGNOSIS A. Uterus, laparoscopic total robotic hysterectomy: - Cervix: squamous metaplasia with focal mild atypia, dilated endocervical glands. - Endometrium: inactive to weakly proliferative. - Myometrium: focal adenomyosis, possible scar - Serosa: focal fibrofatty adhesion MICROSCOPIC DESCRIPTION Slides are reviewed. GROSS DESCRIPTION A. Received in formalin labeled with the patient's name and date of . Designated as uterus, cervix is a 71 g, 7.1 x 5.0 x 3.7 cm uterus without attached adnexa. The serosa is ortiz-pink with diffuse patchy erythema. The attached cervix is pink-red and peeling with a full-thickness defect at the 3 o'clock position, measuring 2.5 x 2.3 cm; the 0.5 cm os is expelling copious hemorrhagic mucoid material and is probe patent. Mucoid cysts are present. The specimen is inked as follows: [id number] Opening reveals a 0.6 cm endometrial canal lined by ortiz-red endometrium up to 0.2 cm thick; there is a 0.4 cm apparent endometrial scar, anteriorly. The myometrium is ortiz-pink and trabeculated, measuring up to 1.9 cm thick. Grossly, there appears to be fat infiltration of the anterior lower uterine segment myometrium. Definitive mass lesions are not identified. Hand Crown Pouncer sections are submitted as follows: A1: Anterior/posterior cervixA2: Anterior endomyometriumA3: Anterior endomyometrium with apparent scarA4: Anterior endomyometrium with infiltrationA5: Posterior endomyometrium IA 03/02/2025 CPT:30856
[2025-03-02] MEDS: Lidocaine 1% (5 ml sdv) 5 ML Vial 10 ML IV (07:32)
[2025-03-02] MEDS: fentaNYL 100 MCG/2 ML Ampul IV (08:41)
--- NOTE | 2025-03-02 09:08 | OP.PCM_ITS ---
Multi Select Codes Urinary/Genital Urinary/Genital CPT Codes: 25596 Cystoscopy and 43585 TLH <250gr uterus Operative Report (Standard) Operative Information Date of Procedure: 03/02/25 Pre-Operative Diagnosis: pelvic pain, menorrhagia, morbid obesity, and history of section Post-Operative Diagnosis: pelvic pain, menorrhagia, morbid obesity, and history of section Surgery/Procedure Performed: total robotic hysterectomy, cystoscopy field evidence technician: Yes Bait Man: Jourdan Howell Tasks completed by advertising assistant manager: Closing, Insert Trochanter and Retracting Additional engineer third assistant?: No Type of Anesthesia: General RN Documented Start/Stop Times: Operation Date: 03/02/25 07:30 Case Time Into Pre-Op 03/02/25 05:50 Out of Pre-Op 03/02/25 07:23 Anesthesia Start 03/02/25 07:27 Into Room 03/02/25 07:27 Procedure Start 03/02/25 07:53 Procedure Start Time: 07:53 Procedure Stop Time: 09:19 Select all DRAINS/GRAFTS/IMPLANTS that apply: None Estimated Blood Loss: 30cc Specimen collected: Yes Description of specimen(s) removed: uterus and cervix Description of surgery: Reason for surgery: This is a 34-year-old G2, P2 who presented to my office with history of heavy periods. she had already undergone sterilization and failed treatment with control. The planned procedure is for a robotic hysterectomy the risks benefits and alternatives were discussed with the patient the patient had a clear understanding of the procedure and a consent form was signed. Procedure: The patient was placed in the dorsal low lithotomy position and prepped and draped in the normal sterile fashion both abdominally and in the perineum. Her legs were placed in stirrups a Jack catheter was inserted into the urethra without difficulty. A weighted speculum was placed in the vagina and a single- tooth tenaculum was used to grasp the anterior lip of the cervix. An advincula uterine manipulator was inserted through the cervix without complication. It was then tied into place at the 2 and 10:00 locations on the cervix. Gloves were changed and attention was turned towards the abdomen. Approximately 23 cm above the pubic symphysis in the midline, and after Marcaine injection, a 8 mm incision was made. An 8 mm trocar was inserted through the laparoscope, then inserted into the abdomen under direct visualization using the laparoscope. Good abdominal placement was noted and no complications were appreciated. An air seal device was utilized to create pneumoperitoneum. At 12 cm lateral to the midline on the left and right sides 8 mm accessory ports were placed. Next a left upper quadrant 8 mm engineer third assistant port site was placed. The patient was placed in steep Trendelenburg position. The robot was docked. The hysterectomy was initiated first by taking down the round ligament on each side using the vessel sealer device. The broad ligament was then and taken down using the vessel sealer device. Next the bladder flap was taken down without complication. There was a moderate amount of scar tissue overlying the lower uterine segment and bladder flap that was easily taken down. This was done using monopolar cautery to the level of the cervical vaginal junction. After the bladder flap was created, uterine vessels were then isolated and cauterized using the vessel sealer device and EndoShears. At this point the uterine vessels were taken down further starting from the ascending branch, dissecting along the edges of the cervix to the level of the cervical vaginal junction with hemostasis appreciated. The cervical vaginal junction was then using monopolar cautery in a circumferential pattern across the superior aspect of the cervix. The specimen was delivered through the vagina and sent to pathology. The remaining vaginal cuff was then closed using a V lock suture. This was performed in a running technique in 2 layers. Hemoblast was applied to the cuff and the cauterized ligaments. Excellent hemostasis was obtained and good closure was noted. Irrigation was then performed. All operative sites were noted to be hemostatic. A cystoscopy was performed with a 70 degree cystoscope through the urethra into the bladder without complication. The bladder was instilled with approximately 250 cc of normal saline. Intraoperative images were made. Ureteral orifices and jets were identified. No suture material was appreciated in the bladder. The bladder was then drained and cystoscope was removed. The abdominal cavity was again examined using the laparoscope after the robot was undocked. All operative sites were noted to be hemostatic. The trochars were removed under direct visualization without complication and pneumoperitoneum was reduced. At this point the skin was then closed using 4-0 Monocryl subcuticular stitch and sealed with surgical glue. The patient tolerated the procedure well sponge lap and needle counts were correct x2 the patient was taken to the recovery room in stable condition. Surgical Findings: Findings: 10 cm uterus, scar tissue overlying the lower uterine segment and bladder, normal appearing ovaries, and surgically absent tubes. On exploration of the abdominal cavity the uterus, adnexa, bowel, and liver were found to be normal. Cystoscopy showed no evidence of leaking at approximately 250 cc of normal saline, positive ureteral orifices and jet flow are seen and no suture material was appreciated in the bladder. Complications Complications: No Admit VTE Documentation VTE Present on Admission: No VTE Mechan Device Prophylaxis: SCD's VTE Pharm Prophylaxis ordered?: No Reason prophylaxis not ordered: Treatment Not Indicated
--- NOTE | 2025-03-02 09:37 | PCM.POST.ANE ---
Anesthesia: Postop Eval I Current Vital Signs Temperature: 97.2 F Pulse Rate: 87 Blood Pressure: 104/58 Respiratory Rate: 16 Pulse Ox: 100 Assessment Airway patent: Yes Spontaneous unlabored respirations: Yes nausea: No Vomiting: No Anesthesia Complication: No Fluid Hydration Crystalloid volume administer (ml): 1,000 Total IV fluid infused: 1,000 Progress Note Anesthesia document: Postop Eval 1 completed: Yes
[2025-03-02] MEDS: Lactated Ringers @ 70 MLS/HR 70 ML IV (09:58)
--- NOTE | 2025-03-02 10:01 | SUR.PHASEI ---
PATIENT IS STILL ON THE BED BELL C/O NEEDING TO URINATE. I HAVE REASSURED HER AND SHE STILL WANTS TO STAY ON IT.
--- NOTE | 2025-03-02 13:04 | POSTOPAN2_ITS ---
Anesthesia Postop Eval I Sum Postop Eval Completion status Anesthesia document: Postop Eval 1 completed: Yes Anesthesia Postop Eval I Summary Anesthesia Postop Eval I Summary: Anesthesia Postop Eval I: Assessment Summary Airway patent Yes 03/02/25 09:37 FINANCIAL REPORTING ACCOUNTANT.TNES Spontaneous unlabored Yes 03/02/25 09:37 FINANCIAL REPORTING ACCOUNTANT.TNES respirations Mental status nausea No 03/02/25 09:37 FINANCIAL REPORTING ACCOUNTANT.TNES Vomiting No 03/02/25 09:37 FINANCIAL REPORTING ACCOUNTANT.TNES Anesthesia Postop Eval I: Fluid Summary Crystalloid volume administer 1,000 03/02/25 09:37 FINANCIAL REPORTING ACCOUNTANT.TNES (ml) Colloids volume administered ( ml) Blood Product volume administered (ml) Total IV fluid infused 1,000 03/02/25 09:37 FINANCIAL REPORTING ACCOUNTANT.TNES Anesthesia Postop Eval I: Summary Notes Anesthesia Complication No 03/02/25 09:37 FINANCIAL REPORTING ACCOUNTANT.TNES Anesthesia Complication Comment: Post-operative progress note Anesthesia: Postop Eval II Evaluation Mental status: Awake and Calm Pain Level: 2 nausea: No Vomiting: No Complications Anesthesia Complication: No
--- NOTE | 2025-03-02 13:04 | PCM.POSTANE2 ---
Anesthesia Postop Eval I Sum Postop Eval Completion status Anesthesia document: Postop Eval 1 completed: Yes Anesthesia Postop Eval I Summary Anesthesia Postop Eval I Summary: Anesthesia Postop Eval I: Assessment Summary Airway patent Yes 03/02/25 09:37 SLIVER [email or web address] Spontaneous unlabored Yes 03/02/25 09:37 SLIVER [email or web address] respirations Mental status nausea No 03/02/25 09:37 SLIVER [email or web address].[email or web address] Vomiting No 03/02/25 09:37 SLIVER [email or web address] Anesthesia Postop Eval I: Fluid Summary Crystalloid volume administer 1,000 03/02/25 09:37 SLIVER [email or web address].TNES (ml) Colloids volume administered ( ml) Blood Product volume administered (ml) Total IV fluid infused 1,000 03/02/25 09:37 SLIVER [email or web address] Anesthesia Postop Eval I: Summary Notes Anesthesia Complication No 03/02/25 09:37 SLIVER [email or web address] Anesthesia Complication Comment: Post-operative progress note Anesthesia: Postop Eval II Evaluation Mental status: Awake and Calm Pain Level: 2 nausea: No Vomiting: No Complications Anesthesia Complication: No
== END 2025-03-02 13:08 | disposition home or self-care (01) ==
LOC: SDC 05:33 → AC 05:34
PROVIDERS: Anesthesiology; Referring Provider Obstetrics & Gynecology; Visit Provider Obstetrics & Gynecology
PROC: 0UT94ZZ Resection of Uterus, Percutaneous Endoscopic Approach (ICD-10-PCS; CPT 58570; principal; 2025-03-02 07:10)
DX: N87.9 Dysplasia of cervix uteri, unspecified (principal); E66.01 Morbid (severe) obesity due to excess calories; Z68.42 Body mass index [BMI] 45.0-49.9, adult; E11.9 Type 2 diabetes mellitus without complications; Z79.4 Long term (current) use of insulin; I10 Essential (primary) hypertension; N92.0 Excessive and frequent menstruation with regular cycle; E88.819 Insulin resistance, unspecified; E28.2 Polycystic ovarian syndrome; Z79.84 Long term (current) use of oral hypoglycemic drugs; Z79.899 Other long term (current) drug therapy; Z90.79 Acquired absence of other genital organ(s); N80.03 Adenomyosis of the uterus
CPT/HCPCS: 58570; S2900; 00840; 36415; 82962; 83735; 85027; 86850; 86900; 86901; 88307; J2405; J3475